=== PATIENT | female | born 1945 | race Caucasian/White ===

== ENCOUNTER → 2020-10-27 10:43 | Outpatient (BNV) | payer MEDICARE, SELFPAY, MEDICAID | PROVIDERS: PCP Internal Medicine; Visit Provider Internal Medicine Medical Oncology | DX: C90.00 Multiple myeloma not having achieved remission (principal) | CPT/HCPCS: 99213; 99214 ==

== ENCOUNTER 2020-11-02 10:02 | Day surgery (SDC) | payer MEDICARE, SELFPAY ==
[2020-10-28 10:02] VITALS: BMI 23.3
--- NOTE | 2020-11-01 09:30 | HO.ANESPROP2 ---
Documented by User: Violeta Xiong 11/01/20 09:31 HPI - Anesthesia Eval Consult details Narrative: 74yo F for Upper Endoscopy and Colonoscopy [facility] Past Medical History Medical History (Updated 11/02/20 @ 11:03 by Lyssa Adam) H/O gastroesophageal reflux (GERD) Hx of multiple myeloma Hypothyroidism Family History Family History Daughter Diabetes Thyroid cancer Surgical History Surgical History History of bone marrow biopsy History of cholecystectomy Social History Social History Alcohol intake: former Smoking Status: Current every day smoker Cigarettes Per Day: 5 Years Smoked: 35 Smoked in Last 30 Days: Yes Patient Given Instructions on How to Stop Smoking: Yes Date Education Initiated: 10/28/20 Advance Directives Information Provided: No Recently lost weight without trying: No Meds Allergies Allergy/AdvReac Type Severity Reaction Status Date / Time No Known Allergies Allergy Unverified 08/11/20 16:27 [No Known Allergies*] Home Medications Medication Instructions Recorded Confirmed Type calcium carbonate [Calcium Antacid] 1 tab PO QAM 10/27/20 10/28/20 History docusate sodium [DOK] 1 cap PO BID PRN 10/27/20 10/28/20 History lenalidomide [Revlimid] 10 mg PO DAILY 10/27/20 10/28/20 History levothyroxine 1 tab PO DAILY 10/27/20 11/02/20 History mirtazapine 1 tab PO BEDTIME 10/27/20 10/28/20 History oxycodone 1 tab PO Q12H 10/27/20 10/28/20 History acetaminophen 1,300 mg PO Q8H PRN 10/28/20 10/28/20 History aspirin [Aspirin Low-Strength] 81 mg PO DAILY 10/28/20 11/02/20 History prochlorperazine maleate 10 mg PO Q6H PRN 10/28/20 10/28/20 History [Compazine] Exam Exam Date and Time: November 01, 2020 0930 Height,Weight and Vital Signs: Height 5 ft 5 in Weight 63.503 kg Pertinent Lab Results Pertinent Lab Results: Laboratory Tests 10/27/20 10/27/20 10:50 10:50 WBC 9.6 Hgb 12.3 Hct 37.5 Plt Count 193 Sodium 141 Potassium 4.0 Chloride 108 Carbon Dioxide 26 BUN 19 H Creatinine 1.15 Assessment and Plan Assessment Anesthesia Assessment: Chart Reviewed Documented by User: Lyssa Adam 11/02/20 11:07 [facility] Past Medical History Medical History (Updated 11/02/20 @ 11:03 by Lyssa Adam) H/O gastroesophageal reflux (GERD) Hx of multiple myeloma Hypothyroidism Family History Family History Daughter Diabetes Thyroid cancer Family history of problems with anesthesia: No Surgical History Surgical History History of bone marrow biopsy History of cholecystectomy History of Problems with Anesthesia: No Social History Social History Alcohol intake: former Smoking Status: Current every day smoker Cigarettes Per Day: 5 Years Smoked: 35 Smoked in Last 30 Days: Yes Patient Given Instructions on How to Stop Smoking: Yes Date Education Initiated: 10/28/20 Advance Directives Information Provided: No Recently lost weight without trying: No Meds Allergies Allergy/AdvReac Type Severity Reaction Status Date / Time No Known Allergies Allergy Unverified 08/11/20 16:27 [No Known Allergies*] Home Medications Medication Instructions Recorded Confirmed Type calcium carbonate [Calcium Antacid] 1 tab PO QAM 10/27/20 10/28/20 History docusate sodium [DOK] 1 cap PO BID PRN 10/27/20 10/28/20 History lenalidomide [Revlimid] 10 mg PO DAILY 10/27/20 10/28/20 History levothyroxine 1 tab PO DAILY 10/27/20 11/02/20 History mirtazapine 1 tab PO BEDTIME 10/27/20 10/28/20 History oxycodone 1 tab PO Q12H 10/27/20 10/28/20 History acetaminophen 1,300 mg PO Q8H PRN 10/28/20 10/28/20 History aspirin [Aspirin Low-Strength] 81 mg PO DAILY 10/28/20 11/02/20 History prochlorperazine maleate 10 mg PO Q6H PRN 10/28/20 10/28/20 History [Compazine] Exam Height,Weight and Vital Signs: Vital Signs Temp Pulse Resp BP Pulse Ox 11/02/20 10:58 97.2 F 58 16 124/60 100 Airway Mallampati Class: I TM Dist: >3cm Neck ROM: Full Denture: Upper Loose/Missing/Broken Teeth: Yes (Broken tooth bottom right) Heart: RRR Lungs: CTAB Assessment and Plan Assessment Anesthesia Assessment: Anesthesia Plan Discussed and Chart Reviewed Final Anesthetic Review NPO: Yes ASA Class: II Final Preanesthetic Review: No Changes in Pt Med Stat, Meds/Allgs Chart Reviewed, Consent Obtained/Reviewed and Anes Risks/Benef Reviewed Patient Risk: Low Procedure Risk: Low Anesthetic Plan Anesthetic Plan: MAC: Disposition: Standard PACU
--- NOTE | 2020-11-02 10:57 | MHC.SHP ---
Pre-Procedural Eval Section B Chief Complaint: Chronic Diarrhea Relevant Social History: Tobacco Use Present Medications: see Short Stay Collaborative assessment (Hx of multiple myeloma, Hypothyroidism) Medical History: Significant History (Hx of multiple myeloma Hypothyroidism) History of Previous Operations: Relevant previous surgery/procedure and date(s) (cholecystectomy, myeloma) Allergies: Allergies Allergy/AdvReac Type Severity Reaction Status Date / Time No Known Allergies Allergy Unverified 08/11/20 16:27 [No Known Allergies*] Review of Systems Sugical H&P ROS: Negative: Constitution, Cardiovascular, Respiratory, Neurological, Psychiatric, Hem-Onc, Allergic/Immunologic, Gastrointestinal, Genitourinary, Musculoskeletal, Integumentary, Endocrine and Eyes/Ears/Nose/Throat Exam Surgical H&P Exam: Normal: HEENT, Normal: Heart, Normal: Lungs, Normal: Extremities, Normal: Abdomen, Normal: Skin and Normal: Neurological Plan Diagnosis/Plan: Unchanged Patient has been examined and remains a candidate for the planned procedure
[2020-11-02 10:58] VITALS: BP 124/60; PULSE 58; RESP 16; TEMP 36.2; O2SAT 100
[2020-11-02] MEDS: Lactated Ringers 1,000 ML 100 ML IVCONT (11:04)
--- NOTE | 2020-11-02 11:47 | PM.OP ---
Brief Operative Note Date of Service: 11/02/20 Post-op diagnosis: same Procedure: see op note Surgeon: Jose F Mai MD Anesthesia: MAC Estimated blood loss (mL): 0 Condition: stable Disposition: PACU
--- NOTE | 2020-11-02 11:47 | W.PM.OPN ---
Operative Note Operative Note Date of Service: 11/02/20 Narrative: Operative Information Procedure Description: EGD, Colonoscopy FLEXIBLE TRANSORAL UPPER GASTROINTESTINAL ENDOSCOPY AND COLONOSCOPY PROCEDURE NOTE UPPER ENDOSCOPY Consent: Indications for the procedure and potential complications of bleeding, perforation, reaction to medications and missed diagnosis were discussed with the patient and informed consent was obtained. Instrument: Olympus GIF H 190 J mid size upper endoscope Monitoring: Vital signs and clinical assessment, continuous EKG monitoring, Pulse oximetry, Carbon Dioxide monitoring and blood pressure monitoring were done throughout the procedure. Procedure: The patient was placed in the left lateral decubitis position and pre-procedure medications were administered and a bite block was placed. The endoscope was inserted into the mouth and advanced under direct vision to the third part of duodenum. A careful inspection was made as the upper endoscope was withdrawn including a retroflexed examination of the proximal stomach; Findings and interventions are described below. Findings: Larynx:normal Esophagus: GE junction at 40 cm, diaphragm hiatus at 40 cm, normal mucosa Stomach: PAtchy erosive gastritis, mostly at antrum. Biopsies were obtained. Grade 2 flap valve on retroflexed examination of the cardia. Duodenum: bulbar duodenitis, bx taken Intervention: Biopsies as noted above COLONOSCOPY Instrument: Olympus variable stiffness pediatric scope 190L Colonoscopy Monitoring: Vital signs and clinical assessment, continuous EKG monitoring, Pulse oximetry, Carbon Dioxide monitoring and blood pressure monitoring were done throughout the procedure. Colon withdrawal time was 11 minutes. Procedure: The patient was placed in the left lateral decubitis position and pre-procedure medications were administered. After a digital rectal examination of the ano-rectum, the video colonoscope was inserted into the rectum and advanced through the colon to the cecum/TI. The colonoscope was slowly withdrawn in a retrograde panoramic fashion and the colon mucosa was carefully examined including a retroflexed view of the rectum. Findings and interventions are described below. Procedure Difficulty:easy Findings: random colon bx taken Terminal Ileum-normal, bx taken Cecum:normal Ascending Colon: 12 mm sessile polyp removed with cold snare, x 2 clips applied due to oozing which was persistent, this ceased. Transverse Colon -normal Descending Colon:normal Sigmoid Colon: normal Rectum: Retroflexion with small internal hemorrhoids, grade I Anorectum - normal Colon preparation: [place] Bowel Preparation Scale Right colon; 1 Transverse colon: 2 Left colon; 1 (0 = Unprepared colon segment with mucosa not seen due to solid stool that cannot be cleared. 1 = Portion of mucosa of the colon segment seen, but other areas of the colon segment not well seen due to staining, residual stool and/or opaque liquid. 2 = Minor amount of residual staining, small fragments of stool and/or opaque liquid, but mucosa of colon segment seen well. 3 = Entire mucosa of colon segment seen well with no residual staining, small fragments of stool or opaque liquid) Impression and Post Procedure Diagnosis: Endoscopy Findings: erosive gastritis, duodenitis Colonoscopy Findings: internal hemorrhoids polyp Plan: Await Pathology results if h pylori pos then treat Repeat Colonoscopy in 6-12 months due to prep or earlier if clinically indicated High fiber diet leaflet Above findings were reviewed with the patient and relevant handouts were provided if indicated.
[2020-11-02 11:55] VITALS: BP 91/45; PULSE 70; RESP 14; TEMP 36.3; O2SAT 100
[2020-11-02 12:10] VITALS: BP 86/59; PULSE 63; RESP 16; O2SAT 100
[2020-11-02 12:15] VITALS: BP 139/71; RESP 18; O2SAT 100
[2020-11-02 12:22] VITALS: BP 135/74; PULSE 61; RESP 18; O2SAT 100
--- NOTE | 2020-11-02 12:59 | HO.POSTANES ---
Documented by User: Violeta Xiong 11/02/20 12:59 Post Anesthesia Evaluation Post Anesthesia Evaluation Vital Signs: Vital Signs Temp Pulse Resp BP Pulse Ox 11/02/20 12:22 97.4 F 61 18 135/74 100 11/02/20 12:15 18 139/71 100 11/02/20 12:10 63 16 86/59 L 100 11/02/20 11:55 97.4 F 70 14 91/45 L 100 11/02/20 10:58 97.2 F 58 16 124/60 100 Anesthesia: Monitored Mental Status: Awake Pain Control: Satisfactory Nausea/Vomiting: None Hydration: Adequate Anesthesia-Related Issues: No Anes. Related Issues
== END 2020-11-02 13:11 | disposition home or self-care (01) ==
PROVIDERS: PCP Internal Medicine; Visit Provider Internal Medicine Gastroenterology
PROC: (CPT 45385; principal; 2020-11-02 11:30)
DX: K29.60 Other gastritis without bleeding (principal); B96.81 Helicobacter pylori [H. pylori] as the cause of diseases classified elsewhere; K29.80 Duodenitis without bleeding; D12.2 Benign neoplasm of ascending colon; K64.0 First degree hemorrhoids
CPT/HCPCS: 45385; 45380; 43239; 88305; 88342

== ENCOUNTER → 2020-11-15 10:51 | Outpatient (BNVA) | payer OTHER, SELFPAY | PROVIDERS: PCP Internal Medicine; Visit Provider Physician Assistant | DX: Z76.89 Persons encountering health services in other specified circumstances (principal) ==

== ENCOUNTER → 2020-12-13 10:15 | Outpatient (BNVA) | payer MEDICARE, SELFPAY | PROVIDERS: PCP Internal Medicine; Visit Provider Physician Assistant | DX: K27.9 Peptic ulcer, site unspecified, unspecified as acute or chronic, without hemorrhage or perforation (principal); B96.81 Helicobacter pylori [H. pylori] as the cause of diseases classified elsewhere; D36.9 Benign neoplasm, unspecified site | CPT/HCPCS: Q3014 ==

== ENCOUNTER 2020-12-16 09:41 | Inpatient (IN) | payer OTHER, SELFPAY ==
[2020-12-16] VITALS (7 sets, daily range): BP systolic 103–111; BP diastolic 46–72; PULSE 54–62; RESP 12–19; TEMP 36.3–37.3; O2SAT 97–100; BMI 21.6; BMI 24.2
--- NOTE | 2020-12-16 11:21 | XR_ITS ---
EXAMINATION: XR CHEST CLINICAL INFORMATION: Fever. COMPARISON: Chest 05/11/2018 TECHNIQUE: Frontal view of the chest was obtained. FINDINGS: The lungs are well-expanded with patchy opacity seen in left lower lobe retrocardiac area, new since the previous study. Rest of the lungs are clear. The heart size and pulmonary vascularity is normal. No gross bony abnormality seen. XR/XR chest 1V IMPRESSION: Patchy opacity left lower lobe retrocardiac area likely infiltrate at
[2020-12-16] MEDS: 0.9 % Sodium Chloride 1,000 ML 999 ML IVCONT (11:39)
[2020-12-16 11:52] LABS: Hematocrit 25.9 % (37-47); Hemoglobin 8.8 g/dl (12.0-16.0); Mean Corpuscular Hemoglobin 31.2 pg (27.0-33.0); Mean Corpuscular Volume 91.8 fL (80-98); Mean Platelet Volume 11.6 fL (9.4-12.3); Platelet Count 199 X10*3/uL (160-400); Red Blood Count 2.82 X10*6/uL (4.20-5.50); Red Cell Distribution Width 13.7 % (11.0-16.0)
--- NOTE | 2020-12-16 11:56 | ED_ITS ---
HPI - Weakness General Chief complaint: Weakness Stated complaint: diarrhea, not feeling well Time Seen by Provider: 12/16/20 11:08 Source: patient Mode of arrival: ambulatory Limitations: language barrier History of Present Illness HPI Narrative: 75 y/o female with history of multiple myeloma dx 2017 on maintainence Prolia therapy, hypothyroidism, recent H.pylori hx on EGD, hx colon polyps presenting with diffuse muscle aches and body pain along with generalized weakness and decreased PO intake for the last week or so. She denies fever, chills, SOB, cough. No known exposure to COVID-19. She reports constipation and recently completed triple therapy for H. pylori. She reports feeling generally unwell, I don't feel good, it hurts all over. Related Data Home Medications Medication Instructions Recorded Confirmed calcium carbonate [Calcium Antacid] 1 tab PO QAM 10/27/20 10/28/20 docusate sodium [DOK] 1 cap PO BID PRN 10/27/20 12/13/20 lenalidomide [Revlimid] 10 mg PO DAILY 10/27/20 12/13/20 levothyroxine 1 tab PO DAILY 10/27/20 11/02/20 mirtazapine 1 tab PO BEDTIME 10/27/20 10/28/20 oxycodone 1 tab PO Q12H 10/27/20 10/28/20 acetaminophen 1,300 mg PO Q8H PRN 10/28/20 12/13/20 aspirin [Aspirin Low-Strength] 81 mg PO DAILY 10/28/20 12/13/20 prochlorperazine maleate 10 mg PO Q6H PRN 10/28/20 10/28/20 [Compazine] Allergies Allergy/AdvReac Type Severity Reaction Status Date / Time No Known Allergies Allergy Verified 12/16/20 11:14 [No Known Allergies*] Review of Systems Review of Systems: Constitutional: No Fever, No Chills ENT/Mouth: No sore throat, No Rhinorrhea, No Swallowing Difficulty Eyes: No Eye Pain, No Swelling, No Redness Cardiovascular: No Chest Pain, No SOB, No Orthopnea, No Edema Respiratory: No Cough, No Sputum, No Wheezing, No dyspnea Gastrointestinal: + Nausea, No Vomiting, No Diarrhea, No abdominal Pain, No Hematochezia, No Melena, +Constipation Genitourinary: No Dysuria, No Urinary Frequency, No Hematuria Musculoskeletal: + joint pain, + Myalgias Skin: No Skin Lesions, No rash Neuro: + Weakness, No Numbness, No Dizziness, No Headache Psych: No Anxiety/Panic, No Depression Heme/Lymph: No Bruising, No Lymphadenopathy Endocrine: No Polyuria, No Polydipsia [facility] Past Medical History Attestation statement: The following information was validated with the patient. Medical History H/O gastroesophageal reflux (GERD) Hx of multiple myeloma Hypothyroidism Surgical History History of bone marrow biopsy History of cholecystectomy Family History Family History Daughter Diabetes Thyroid cancer Social History Social History (Updated 12/13/20 @ 10:27 by ANU VegaC) Household Members: Spouse Alcohol intake: former Smoking Status: Never smoker Cigarettes Per Day: 5 Years Smoked: 35 Use of substances other than those prescribed or required for medical reasons: No Advance Directives: No Advance Directives Information Provided: No Physical Exam Vital Signs: Vital Signs: Last Vital Signs Temp 99.2 F 12/16/20 11:08 Pulse 59 12/16/20 11:08 Resp 18 12/16/20 11:08 BP 111/53 L 12/16/20 11:08 Pulse Ox 100 12/16/20 11:08 Body Mass Index 21.6 Appearance: Alert. Oriented X3. No acute distress. Eyes: Pupils equal, round and reactive to light. ENT: Pharynx normal. Neck: Normal inspection. Neck supple. CVS: Normal heart rate and rhythm. Pulses normal. Respiratory: No respiratory distress. Breath sounds normal. Abdomen: Soft and nontender. decreased bowel sounds x4 REBEKAH: normal rectal tone, yellow stool, heme negative Skin: Skin warm and dry. Normal skin color. Poor skin turgor. No rashes. Extremities: No lower extremity edema. Negative Shun's sign. Neuro: Oriented X 3. No motor deficit. No sensory deficit. Course Course Course Narrative: 75 y/o female with history fo multiple myeloma dx 2017 currently on denosumab (Prolia) every 3 months, last dose in Oct 2020. She is presenting with diffuse muscle and body aches, generalized weakness. Will need to r/o COVID-19. Will check basic lab work to assess for electrolyte abnormalities. Reevaluation(s) Reevaluation #1: Critically low calcium at 5.3, magnesium 1.2. She is also more anemic than her baseline with 2 point drop in her hemoglobin in 1 month. Denies bleeding. Heme negative from below. Multiple labs added including phos, retic count, hemolytic labs. Cannot get iCal, per lab it is a sent out 5 day turnaround time. Corrected calcium is 5.88 got albumin 3.4. EKG pending. Etiology of the electrolyte abnormalities likely due to Prolia. Will contact Dr. Dukes and plan for admission to the hospital for further management and monitoring. Reevaluation #2: Spoke with Zaida Reynolds who will admit. Consultations Consultation #1: Dr. Dukes was tigertexted at 1:40pm - hypocalcemia likely due to Prolia - recommends replacements, close montoring and anemia workup. She was informed of plan for admission. MDM - Weakness Medical Records Attestation: I reviewed the patient's medical records. Lab Data Attestation: I reviewed the patient's lab results. Result diagrams: 12/16/20 11:38 12/16/20 11:38 Labs: Lab Results 12/16/20 12/16/20 12/16/20 Range/Units 11:38 11:38 11:38 WBC 7.0 (4.8-10.8) X10*3/uL RBC 2.82 L (4.20-5.50) X10*6/uL Hgb 8.8 L (12.0-16.0) g/dl Hct 25.9 L D (37-47) % MCV 91.8 (80-98) fL MCH 31.2 (27.0-33.0) pg MCHC 34.0 (31.0-35.0) g/dl RDW 13.7 (11.0-16.0) % Plt Count 199 (160-400) X10*3/uL MPV 11.6 (9.4-12.3) fL Immature Gran % (Auto) Cancelled Neut % (Auto) Cancelled Lymph % (Auto) Cancelled Caroline % (Auto) Cancelled Eos % (Auto) Cancelled Baso % (Auto) Cancelled Lymph # (Auto) Cancelled Caroline # (Auto) Cancelled Eos # (Auto) Cancelled Baso # (Auto) Cancelled Abs Immat Gran (auto) Cancelled Absolute Neuts (auto) Cancelled Absolute Nucleated RBC 0.000 (0.0-0.012) X10*3/uL Nucleated RBC % (auto) 0.0 (0.0-0.2) /100WBC Neutrophils % (Manual) 65 (45-73) % Band Neutrophils % 1 L (3-5) % Lymphocytes % (Manual) 23 (20-40) % Monocytes % (Manual) 11 (2-11) % Abs Neuts (Manual) 4.6 (2.2-7.9) X10*3/uL Lymphocytes # (Manual) 1.6 (0.6-4.8) X10*3/uL Monocytes # (Manual) 0.8 (0.0-1.2) X10*3/uL Platelet Estimate NORMAL (NORMAL) Plt Morphology Comment NORMAL RBC Morphology NOTED Macrocytosis 1+ Absolute Retic 0.030 (0.026-0.095) X10*6/uL Percent Retic 1.1 (0.5-1.8) % Immature Retic Fraction 7.2 (3.0-15.9) % Retic Hgb Equivalent 27.6 L (30.0-35.0) pg Hold Blue Top SEE NOTE Sodium 136 (135-145) mmol/L Potassium 3.5 (3.3-5.1) mmol/l Chloride 102 (96-108) mmol/L Carbon Dioxide 23 (22-29) mmol/L Anion Gap 15 (12-20) BUN 10 (9-16) mg/dL Creatinine 1.02 (0.5-1.4) mg/dL Estim Creat Clear Calc 42.2 Estimated GFR 53 Random Glucose 99 (60-115) mg/dL Calcium 5.3 L* D (8.4-10.2) mg/dL Phosphorus 2.0 L (2.7-4.5) mg/dL Magnesium 1.2 L* (1.6-2.6) mg/dL Total Bilirubin 0.6 (0.0-1.0) mg/dL Direct Bilirubin 0.3 (0.0-0.5) mg/dL AST 22 D (5-31) U/L ALT 23 (0-31) U/L Alkaline Phosphatase 128 H D (39-117) U/L Total Protein 6.5 (6.5-8.0) g/dL Albumin 3.4 L (3.5-5.0) g/dL Lipase 29 (8-78) U/L Stool Occult Blood (NEG) Coronavirus (PCR) (Negative) Influenza Type A (PCR) (Negative) Influenza Type B (PCR) (Negative) RSV RNA Qual (PCR) (Negative) 12/16/20 12/16/20 Range/Units 11:38 12:57 WBC (4.8-10.8) X10*3/uL RBC (4.20-5.50) X10*6/uL Hgb (12.0-16.0) g/dl Hct (37-47) % MCV (80-98) fL MCH (27.0-33.0) pg MCHC (31.0-35.0) g/dl RDW (11.0-16.0) % Plt Count (160-400) X10*3/uL MPV (9.4-12.3) fL Immature Gran % (Auto) Neut % (Auto) Lymph % (Auto) Caroline % (Auto) Eos % (Auto) Baso % (Auto) Lymph # (Auto) Caroline # (Auto) Eos # (Auto) Baso # (Auto) Abs Immat Gran (auto) Absolute Neuts (auto) Absolute Nucleated RBC (0.0-0.012) X10*3/uL Nucleated RBC % (auto) (0.0-0.2) /100WBC Neutrophils % (Manual) (45-73) % Band Neutrophils % (3-5) % Lymphocytes % (Manual) (20-40) % Monocytes % (Manual) (2-11) % Abs Neuts (Manual) (2.2-7.9) X10*3/uL Lymphocytes # (Manual) (0.6-4.8) X10*3/uL Monocytes # (Manual) (0.0-1.2) X10*3/uL Platelet Estimate (NORMAL) Plt Morphology Comment RBC Morphology Macrocytosis Absolute Retic (0.026-0.095) X10*6/uL Percent Retic (0.5-1.8) % Immature Retic Fraction (3.0-15.9) % Retic Hgb Equivalent (30.0-35.0) pg Hold Blue Top Sodium (135-145) mmol/L Potassium (3.3-5.1) mmol/l Chloride (96-108) mmol/L Carbon Dioxide (22-29) mmol/L Anion Gap (12-20) BUN (9-16) mg/dL Creatinine (0.5-1.4) mg/dL Estim Creat Clear Calc Estimated GFR Random Glucose (60-115) mg/dL Calcium (8.4-10.2) mg/dL Phosphorus (2.7-4.5) mg/dL Magnesium (1.6-2.6) mg/dL Total Bilirubin (0.0-1.0) mg/dL Direct Bilirubin (0.0-0.5) mg/dL AST (5-31) U/L ALT (0-31) U/L Alkaline Phosphatase (39-117) U/L Total Protein (6.5-8.0) g/dL Albumin (3.5-5.0) g/dL Lipase (8-78) U/L Stool Occult Blood NEG (NEG) Coronavirus (PCR) NEGATIVE (Negative) Influenza Type A (PCR) NEGATIVE (Negative) Influenza Type B (PCR) NEGATIVE (Negative) RSV RNA Qual (PCR) NEGATIVE (Negative) ECG Data Attestation: I personally reviewed and interpreted this ECG as follows: ECG interpretation date: 12/16/20 ECG interpretation time: 13:53 Interpretation: sinus bradycardia, HR 58, prolonged QT 540 ms, prolonged QTc 530 ms, normal MA interval. Critical Care Time Critical Care Time Critical Care Time: Yes Total Critical Care Time: 40 Attestation: I attest to critical care time spent caring for this patient with clinically significant electrolyte abnormalities requiring aggressive IV replacements and hemodynamic monitoring/ arrythmia monitoring. Time spent reviewing records, speaking with consultants and re-evaluating the patient. Discharge Plan Discharge Prescriptions: No Action levothyroxine 75 mcg tablet 1 tab PO DAILY RF: 0 calcium carbonate [Calcium Antacid] 200 mg calcium (500 mg) tablet,chewable 1 tab PO QAM RF: 0 docusate sodium [DOK] 100 mg capsule 1 cap PO BID PRN (Reason: Constipation) RF: 0 mirtazapine 15 mg tablet 1 tab PO BEDTIME RF: 0 Revlimid 10 mg capsule 10 mg PO DAILY RF: 0 oxycodone 10 mg tablet 1 tab PO Q12H RF: 0 prochlorperazine maleate [Compazine] 10 mg Tablet 10 mg PO Q6H PRN (Reason: Nausea) RF: 0 aspirin [Aspirin Low-Strength] 81 mg Tablet,Delayed Release (Dr/Ec) 81 mg PO DAILY RF: 0 acetaminophen 650 mg Tablet 1,300 mg PO Q8H PRN (Reason: Pain) RF: 0
--- NOTE | 2020-12-16 12:00 | PC.NURSE ---
Addendum entered by Cyndy Anguiano RN 12/16/20 12:01: CONT'D FROM PREV. NOTE. HX MULTIPLE MYELOMA. DENIES SOB, CP, DIZZINESS, N/V/D. A&OX3, SPEAKING IN CLEAR FULL SENTENCES. LABS DRAWN ORDERED, #20 IN L AC. OBSERVED AMBULATING INDEPENDENTLY AND STEADILY TO RESTROOM. Original Note: C/O GEN WEAKNESS X 1 WK WITH MYALGIAS. HX MULTIUP
[2020-12-16 12:27] LABS: Influenza A PCR NEGATIVE (Negative); Influenza B PCR NEGATIVE (Negative); Resp Syncy Virus RNA Qual PCR NEGATIVE (Negative); SARS COV2 PCR INHOUSE NEGATIVE (Negative)
[2020-12-16 12:37] LABS: Alanine Aminotransferase 23 U/L (0-31); Albumin Level 3.4 g/dL (3.5-5.0); Alkaline Phosphatase 128 U/L (39-117); Anion Gap 15 (12-20); Aspartate Amino Transferase 22 U/L (5-31); Bilirubin Direct 0.3 mg/dL (0.0-0.5); Bilirubin Total 0.6 mg/dL (0.0-1.0); Blood Urea Nitrogen 10 mg/dL (9-16); Calcium 5.3 mg/dL (8.4-10.2); Carbon Dioxide 23 mmol/L (22-29); Chloride 102 mmol/L (96-108); Creatinine Clr Calc Pharmacy 42.2; Estimated Glomerular Filt Rate 53; Glucose Random 99 mg/dL (60-115); Lipase 29 U/L (8-78); Magnesium 1.2 mg/dL (1.6-2.6); Potassium 3.5 mmol/l (3.3-5.1); Sodium 136 mmol/L (135-145); Total Protein 6.5 g/dL (6.5-8.0)
[2020-12-16 12:39] LABS: Baso%MD 0.1 %; Eos%MD 3.8 %; IG%MD 0.4 %; Immature Retic Fraction 7.2 % (3.0-15.9); Lymph%MD 19.2 %; Mono%MD 14.7 %; Neut%MD 61.8 %; Retic HGB Equivalent 27.6 pg (30.0-35.0); Reticulocyte Percent 1.1 % (0.5-1.8)
--- NOTE | 2020-12-16 12:47 | ECG_ITS ---
Test Reason : CP Blood Pressure : / mmHG Vent. Rate : 058 BPM Atrial Rate : 058 BPM P-R Int : 118 ms QRS Dur : 074 ms QT Int : 540 ms P-R-T Axes : 025 048 016 degrees QTc Int : [address] & T wave abnormality, consider anterior ischemia Prolonged QT Abnormal ECG When compared with ECG of 14-JUL-2017 12:43, QT has lengthened Referred By: Cheyenne Lyman Electronically Signed By:LORRI LUCAS
[2020-12-16] MEDS: Magnesium Sulfate/H2O 2 GM/50 ML PIGGYBACK IV (12:55)
[2020-12-16 13:06] LABS: Band Neutrophils Percent 1 % (3-5); Lymphocytes Absolute Manual 1.6 X10*3/uL (0.6-4.8); Lymphocytes Percent Manual 23 % (20-40); Monocytes Absolute Manual 0.8 X10*3/uL (0.0-1.2); Monocytes Percent Manual 11 % (2-11); Neutrophils Absolute Manual 4.6 X10*3/uL (2.2-7.9); Neutrophils Percent Manual 65 % (45-73); RBC Morphology NOTED
[2020-12-16 13:07] LABS: Macrocytosis 1+; Platelet Estimate NORMAL (NORMAL); Platelet Morphology Comment NORMAL
[2020-12-16 13:12] LABS: OBS Int Ctl Valid YES; OBS1 NEG (NEG)
[2020-12-16] MEDS: Calcium Gluconate/NaCl,Iso-Osm 2 GM/100 ML PLAST..BAG IV (13:25)
[2020-12-16] MEDS: Sodium,Potassium Phosphates POWD.PACK 2 PACKET PO (14:01)
--- NOTE | 2020-12-16 14:02 | PM.EVENT ---
Event Note Date of Service: 12/16/20 Event Note: Patient seen and examined independently and was present during burgos portion of E/M service. Agree with midlevel's history, physical, assessment, and plan. 75F presented with abdominal pain found to have hypocalcemia hypocalcemia due to denosumab and zometa and hypomagnesemia replace and monitor
--- NOTE | 2020-12-16 17:24 | P.HPHOSP_ITS ---
History of Present Illness Date of Service: 12/16/20 Chief Complaint: Weakness This is a 75-year-old history of multiple myeloma who presents to the emergency department with one-week history of weakness. She reports associated constipation but denies other symptoms. Basic labs were drawn was noted to be anemic below her baseline with an H/H of 8.8/25.9. In addition her calcium was 5.3, phosphorus 2.0 and magnesium 1.2. EKG revealed prolonged QTC at 530 milliseconds. She received replacement for her was made to admit her for further management. Review of Systems Review of Systems: Yes all other systems are reviewed and are negative Constitutional: Constitutional: Denies chills and Denies fever(s) Cardiovascular: Cardiovascular: Denies chest pain Respiratory: Respiratory: Denies cough Gastrointestinal: Gastrointestinal: Denies abdominal pain [facility] Medical History (Updated 12/16/20 @ 17:40 by SOHAN Zarco) Depression H/O gastroesophageal reflux (GERD) Hx of multiple myeloma Hypothyroidism Functional capacity: independent ambulation Family History Daughter Diabetes Thyroid cancer Surgical History History of bone marrow biopsy History of cholecystectomy Social History (Updated 12/16/20 @ 17:40 by SOHAN Zarco) Household Members: Spouse Alcohol intake: former Smoking Status: Current every day smoker Cigarettes Per Day: 5 Years Smoked: 35 Use of substances other than those prescribed or required for medical reasons: No Advance Directives: No Advance Directives Information Provided: No Meds Allergies Allergy/AdvReac Type Severity Reaction Status Date / Time No Known Allergies Allergy Verified 12/16/20 11:14 [No Known Allergies*] Home Medications Medication Instructions Recorded Confirmed Type lenalidomide [Revlimid] 10 mg PO DAILY 10/27/20 12/16/20 History levothyroxine 75 mcg PO DAILY 10/27/20 12/16/20 History oxycodone 10 mg PO Q12H 10/27/20 12/16/20 History acyclovir 400 mg PO DAILY@1200 12/16/20 12/16/20 History aspirin 81 mg PO DAILY 12/16/20 12/16/20 History fluoxetine 20 mg PO QAM 12/16/20 12/16/20 History mirtazapine 30 mg PO BEDTIME 12/16/20 12/16/20 History Physical Exam Vital Signs and Narrative: Vital Signs: Last Vital Signs Temp 99.2 F 12/16/20 11:08 Pulse 57 12/16/20 16:00 Resp 18 12/16/20 16:00 BP 104/48 L 12/16/20 16:00 Pulse Ox 98 12/16/20 16:00 Body Mass Index 21.6 Const: General: alert and awake Nutritional Appearance: well nourished HENMT: Head: Yes normocephalic and Yes atraumatic Eyes: Sclerae: sclerae normal Chest: Chest palpation & inspection: normal inspection of the chest Resp: Effort & Inspection: normal respiratory effort and no respiratory distress Cardio: Rate: regular rate Rhythm: regular rhythm GI: Palpation (GI): Soft to palpation and nontender Skin: General skin exam: no rashes or lesions noted Neuro: Cranial nerves: Yes CN's II-XII intact bilaterally and Yes Bilaterally intact EOM present Extrem: General: Yes normal to inspection Results Labs CBC and Chem 7: 12/16/20 11:38 12/16/20 11:38 Labs: Laboratory Results - last 24 hr 12/16/20 12/16/20 12/16/20 11:38 11:38 11:38 MCV 91.8 MCH 31.2 MCHC 34.0 RDW 13.7 Plt Count 199 MPV 11.6 Immature Gran % (Auto) Cancelled Neut % (Auto) Cancelled Lymph % (Auto) Cancelled Graham % (Auto) Cancelled Eos % (Auto) Cancelled Baso % (Auto) Cancelled Lymph # (Auto) Cancelled Graham # (Auto) Cancelled Eos # (Auto) Cancelled Baso # (Auto) Cancelled Abs Immat Gran (auto) Cancelled Absolute Neuts (auto) Cancelled Absolute Nucleated RBC 0.000 Nucleated RBC % (auto) 0.0 Neutrophils % (Manual) 65 Band Neutrophils % 1 L Lymphocytes % (Manual) 23 Monocytes % (Manual) 11 Abs Neuts (Manual) 4.6 Lymphocytes # (Manual) 1.6 Monocytes # (Manual) 0.8 Platelet Estimate NORMAL Plt Morphology Comment NORMAL RBC Morphology NOTED Macrocytosis 1+ Absolute Retic 0.030 Percent Retic 1.1 Immature Retic Fraction 7.2 Retic Hgb Equivalent 27.6 L Hold Blue Top SEE NOTE Anion Gap 15 Estim Creat Clear Calc 42.2 Estimated GFR 53 Random Glucose 99 Calcium 5.3 L* D Phosphorus 2.0 L Magnesium 1.2 L* Total Bilirubin 0.6 Direct Bilirubin 0.3 AST 22 D ALT 23 Alkaline Phosphatase 128 H D Total Protein 6.5 Albumin 3.4 L Lipase 29 Stool Occult Blood Coronavirus (PCR) Influenza Type A (PCR) Influenza Type B (PCR) RSV RNA Qual (PCR) 12/16/20 12/16/20 11:38 12:57 MCV MCH MCHC RDW Plt Count MPV Immature Gran % (Auto) Neut % (Auto) Lymph % (Auto) Graham % (Auto) Eos % (Auto) Baso % (Auto) Lymph # (Auto) Graham # (Auto) Eos # (Auto) Baso # (Auto) Abs Immat Gran (auto) Absolute Neuts (auto) Absolute Nucleated RBC Nucleated RBC % (auto) Neutrophils % (Manual) Band Neutrophils % Lymphocytes % (Manual) Monocytes % (Manual) Abs Neuts (Manual) Lymphocytes # (Manual) Monocytes # (Manual) Platelet Estimate Plt Morphology Comment RBC Morphology Macrocytosis Absolute Retic Percent Retic Immature Retic Fraction Retic Hgb Equivalent Hold Blue Top Anion Gap Estim Creat Clear Calc Estimated GFR Random Glucose Calcium Phosphorus Magnesium Total Bilirubin Direct Bilirubin AST ALT Alkaline Phosphatase Total Protein Albumin Lipase Stool Occult Blood NEG Coronavirus (PCR) NEGATIVE Influenza Type A (PCR) NEGATIVE Influenza Type B (PCR) NEGATIVE RSV RNA Qual (PCR) NEGATIVE Imaging Radiologist's Impressions: Impressions Chest X-Ray 12/16/20 11:21 IMPRESSION: Patchy opacity left lower lobe retrocardiac area likely infiltrate at Assessment and Plan (1) Anemia: Qualifiers: Anemia type: unspecified type Qualified Code(s): D64.9 - Anemia, unsp ecified Status: Acute (2) Hypocalcemia: Status: Acute (3) Hypomagnesemia: Status: Acute (4) Hypophosphatemia: Status: Acute This is a 75-year-old Omani-speaking female with a history of multiple myeloma on denosumab, hypothyroidism, mood disorder who presents to the emergency department with weakness found to have multiple electrolyte abnormalities Hypocalcemia Secondary to hypomagnesemia, denosumab -replace electrolytes and follow -nephrology consult Hypomagnesemia/hypophosphatemia replace and follow Prolonged qtc, 530ms r/t electrolyte abnormalities Tele monitoring Repeat EKG in am hold ssri anemia H/H somewhat below baseline Will check stool occult blood Follow CBC mood hold ssri, continue mirtazapine chronic pain Continue home dose of oxycodone Hypothyroidism Continue Synthroid DVT prophylaxis-heparin Code status-full code This case was discussed with Dr. Obrien
[2020-12-16 18:25] LABS: Appearance Urine CLEAR; Color Urine YELLOW; Glucose Urine UA NEG (NEG); Leukocyte Esterase Urine NEG (NEG); Nitrite Urine NEG (NEG); PH 5.5 (5.0-8.0); Specific Gravity - Urine 1.025 (1.005-1.025); Urine Blood TRACE (NEG); Urine Ketones NEG (NEG); Urine Protein TRACE MG/DL (NEG-TRACE)
[2020-12-16 18:31] LABS: Bacteria Urine TRACE /LPF; RBC Urine 0 /HPF (0); Squamous Epithelial Cell Urine 1+ /LPF; WBC Urine 0 /HPF (0-4)
[2020-12-16 18:47] LABS: Magnesium 1.8 mg/dL (1.6-2.6)
[2020-12-16] MEDS: Heparin Sodium,Porcine 5,000 UNIT/ML VIAL 5000 UNIT SUBCUT (19:52)
--- NOTE | 2020-12-16 19:52 | PC.NURSE ---
Patient medicated per emar as noted. Patient's pain level 8. No other issues at this time.
[2020-12-16] MEDS: oxyCODONE HCl Immed Release 5 MG TABLET 10 MG PO (19:53)
--- NOTE | 2020-12-16 21:33 | PC.NURSE ---
REPORT GIVEN TO [facility] ELIZ PETERSON, ROOM [id number].
[2020-12-17] MEDS: 0.9 % Sodium Chloride Flush 3 ML SYRINGE IVFLUSH ×3 (00:51→17:31)
[2020-12-17 03:16] VITALS: BP 113/58; PULSE 57; RESP 18; TEMP 36.4; O2SAT 100
[2020-12-17] MEDS: Acetaminophen 325 MG TABLET 650 MG PO (03:37)
--- NOTE | 2020-12-17 05:15 | PC.NURSE ---
Patient had a 7 beat of vtach. Pt slept through it, this RN at bedside, pt easily arrousable, asymptomatic. Dr. Awan notified - confirmed BMP for morning labs and added mag to blood work .
[2020-12-17 06:19] LABS: MANUAL DIFF FLAG NO
[2020-12-17 06:30] LABS: Basophils Percent Auto 0.3 % (0-2); Eosinophils Absolute Auto 0.2 X10*3/uL (0.0-0.4); Eosinophils Percent Auto 6.4 % (0-4); Hematocrit 21.8 % (37-47); Hemoglobin 7.3 g/dl (12.0-16.0); Imm Gran Abs Auto 0.01 X10*3/uL (0.00-0.03); Imm Gran Pct Auto 0.3 % (0.0-0.4); Lymphocytes Absolute Auto 1.1 X10*3/uL (1.2-4.9); Lymphocytes Percent Auto 29.6 % (20-40); Mean Corpuscular HGB Conc 33.5 g/dl (31.0-35.0); Mean Corpuscular Hemoglobin 30.5 pg (27.0-33.0); Mean Corpuscular Volume 91.2 fL (80-98); Mean Platelet Volume 11.7 fL (9.4-12.3); Monocytes Absolute Auto 0.6 X10*3/uL (0.1-1.2); Monocytes Percent Auto 15.4 % (2-11); Neutrophils Absolute Auto 1.7 X10*3/uL (2.0-8.3); Platelet Count 159 X10*3/uL (160-400); Red Blood Count 2.39 X10*6/uL (4.20-5.50); Red Cell Distribution Width 13.7 % (11.0-16.0); White Blood Count 3.6 X10*3/uL (4.8-10.8)
[2020-12-17 07:05] LABS: Magnesium 1.7 mg/dL (1.6-2.6)
[2020-12-17 07:09] LABS: Anion Gap 15 (12-20); Blood Urea Nitrogen 10 mg/dL (9-16); Carbon Dioxide 19 mmol/L (22-29); Chloride 105 mmol/L (96-108); Creatinine Clr Calc Pharmacy 54.5; Estimated Glomerular Filt Rate > 60; Glucose Random 81 mg/dL (60-115); Phosphorus 2.9 mg/dL (2.7-4.5); Potassium 3.5 mmol/l (3.3-5.1); Sodium 135 mmol/L (135-145)
[2020-12-17 07:33] LABS: Calcium 5.3 mg/dL (8.4-10.2)
[2020-12-17 08:00] VITALS: BP 124/56; PULSE 48; RESP 18; TEMP 36.1; O2SAT 100
[2020-12-17] MEDS: Aspirin 81 MG TAB.CHEW PO (08:45)
[2020-12-17] MEDS: Magnesium Oxide 400 MG TABLET 800 MG PO (08:45)
[2020-12-17] MEDS: Levothyroxine Sodium 75 MCG TABLET PO (08:45)
[2020-12-17] MEDS: oxyCODONE HCl Immed Release 5 MG TABLET 10 MG PO ×2 (08:45→22:49)
[2020-12-17] MEDS: Heparin Sodium,Porcine 5,000 UNIT/ML VIAL 5000 UNIT SUBCUT ×2 (08:46→22:50)
[2020-12-17] MEDS: Calcium Gluconate/NaCl,Iso-Osm 1 GM/50 ML PLAST..BAG IV ×2 (09:49→17:54)
--- NOTE | 2020-12-17 10:23 | HO.PM.IMPN ---
Subjective Subjective Date of Service: 12/17/20 Interval History: tired Cardiovascular Cardiovascular: Reports no additional cardiovascular complaints Respiratory Respiratory: Reports no additional respiratory complaints Physical Exam Vital Signs: Vital Signs: Last Vital Signs Temp 97.0 F 12/17/20 08:00 Pulse 48 L 12/17/20 08:00 Resp 18 12/17/20 08:00 BP 124/56 L 12/17/20 08:00 Pulse Ox 100 12/17/20 08:00 Body Mass Index 24.2 General: AO X 3, no acute distress Resp: CTA bilateral CVS: S1,S2,RRR GI: soft, non tender, non distended Neuro: motor grossly intact Psych: appropriate affect Objective Data Current Medications Generic Name Dose Route Start Last Admin Trade Name Freq PRN Reason Stop Dose Admin Acetaminophen 650 mg 12/16/20 17:57 12/17/20 03:37 Acetaminophen 325 Mg Tablet PO 650 mg Q6H PRN Administration Pain, Mild (Pain Scale 1-3) Acyclovir 400 mg 12/17/20 12:00 Acyclovir 200 Mg Capsule PO DAILY@1200 KULDEEP Aspirin 81 mg 12/17/20 09:00 12/17/20 08:45 Aspirin 81 Mg Tab.Chew PO 81 mg DAILY KULDEEP Administration Docusate Sodium 100 mg 12/16/20 17:57 Docusate Sodium 100 Mg Capsule PO DAILY PRN Constipation Heparin Sodium (Porcine) 5,000 unit 12/16/20 20:00 12/17/20 08:46 Heparin Sodium,Porcine 5,000 Unit/Ml Vial SUBCUT 5,000 unit Q12H KULDEEP Administration Levothyroxine Sodium 75 mcg 12/17/20 09:00 12/17/20 08:45 Levothyroxine Sodium 75 Mcg Tablet PO 75 mcg DAILY KULDEEP Administration Non-Formulary Medication 10 mg 12/17/20 09:00 Lenalidomide [Revlimid] PO DAILY KULDEEP Ondansetron HCl 4 mg 12/16/20 17:57 Ondansetron Hcl 4 Mg/2 Ml Vial IVPUSH Q8H PRN Nausea and Vomiting Oxycodone HCl 10 mg 12/16/20 20:00 12/17/20 08:45 Oxycodone Hcl Immed Release 5 Mg Tablet PO 10 mg Q12H KULDEEP Administration Pharmacy Consult 1 each 12/16/20 13:23 Consult Rx Perform Med Rec MISCELLANE ONCE PRN Consult order Sodium Chloride 3 ml 12/17/20 00:00 12/17/20 09:49 0.9 % Sodium Chloride Flush 3 Ml Syringe IVFLUSH 3 ml QSHIFT [facility] Administration Labs CBC & Chem 7: 12/17/20 05:46 12/17/20 05:46 Assessment and Plan (1) Anemia: Status: Acute (2) Hypocalcemia: Status: Acute (3) Hypomagnesemia: Status: Acute (4) Hypophosphatemia: Status: Acute Assessment and Plan: This is a 75-year-old Kittitian-speaking female with a history of multiple myeloma on denosumab, hypothyroidism, mood disorder who presentsedto the emergency department with weakness found to have multiple electrolyte abnormalities Hypocalcemia Secondary to hypomagnesemia, denosumab, zometa -replace and monitor -nephrology eval MM outpaitient follow up mood hold ssri, continue mirtazapine chronic pain Continue home dose of oxycodone Hypothyroidism Continue Synthroid DVT prophylaxis-heparin Code status-full code
--- NOTE | 2020-12-17 10:29 | PM.CNNEP ---
History of Present Illness Reason for Consult Consult date: 12/17/20 Chief Complaint Chief complaint: Hypoglycemia History of Present Illness Narrative: Full dictated consult to follow Severe HypoCa in setting of Myeloma and recent denusamab treatemt in Dec Will ocnt to give IV/PO Ca and start calcitriol Unfortunately the hypoCa can at times be diffuclt to treat as the densumab effects can have a prolonged effect Will follow clsoley with team Review of Systems Review of Systems Constitutional: No Fever, No Chills ENT/Mouth: No sore throat, No Rhinorrhea, No Swallowing Difficulty Eyes: No Eye Pain, No Swelling, No Redness Cardiovascular: No Chest Pain, No SOB, No Orthopnea, No Edema Respiratory: No Cough, No Sputum, No Wheezing, No dyspnea Gastrointestinal: + Nausea, No Vomiting, No Diarrhea, No abdominal Pain, No Hematochezia, No Melena, +Constipation Genitourinary: No Dysuria, No Urinary Frequency, No Hematuria Musculoskeletal: + joint pain, + Myalgias Skin: No Skin Lesions, No rash Neuro: + Weakness, No Numbness, No Dizziness, No Headache Psych: No Anxiety/Panic, No Depression Heme/Lymph: No Bruising, No Lymphadenopathy Endocrine: No Polyuria, No Polydipsia Yes all other systems are reviewed and are negative Constitutional: Denies chills and Denies fever(s) Cardiovascular: Reports no additional cardiovascular complaints and Denies chest pain Respiratory: Reports no additional respiratory complaints and Denies cough Gastrointestinal: Denies abdominal pain PMFSH Past Medical History Medical History (Updated 12/16/20 @ 17:40 by SOHAN Zarco) Depression H/O gastroesophageal reflux (GERD) Hx of multiple myeloma Hypothyroidism Functional capacity: independent ambulation Family History Family History Daughter Diabetes Thyroid cancer Surgical History Surgical History History of bone marrow biopsy History of cholecystectomy Social History Social History (Updated 12/16/20 @ 17:40 by SOHAN Zarco) Household Members: Spouse Housing: Apartment Do you presently have visiting nurse or other home services: No Alcohol intake: former Smoking Status: Current some day smoker Tobacco Type: Cigarette Cigarettes Per Day: 0.1 Years Smoked: 20 Smoked in Last 30 Days: Yes Patient Interested in Nicotine Replacement: No Patient Given Instructions on How to Stop Smoking: Yes Date Education Initiated: 12/16/20 Second Hand Smoke Exposure: No Use of substances other than those prescribed or required for medical reasons: No Currently Displaying Signs/Symptoms of Drug Intoxication Withdrawal: No Have you been hit, kicked, punched, or otherwise hurt by someone within the past year? If so, by whom?: No Do you feel safe in your current relationship?: No Is there a partner from a previous relationship who is making you feel unsafe now?: No Are you made to feel afraid or neglected: No Advance Directives: No Advance Directives Information Provided: No Advance Directives on File: No Do you have thoughts of harming others: None Do you have a plan to hurt others: No Plan Recently lost weight without trying: No Meds Allergies Allergy/AdvReac Type Severity Reaction Status Date / Time No Known Allergies Allergy Verified 12/16/20 11:14 [No Known Allergies*] Home Medications Medication Instructions Recorded Confirmed Type lenalidomide [Revlimid] 10 mg PO DAILY 10/27/20 12/16/20 History levothyroxine 75 mcg PO DAILY 10/27/20 12/16/20 History oxycodone 10 mg PO Q12H 10/27/20 12/16/20 History acyclovir 400 mg PO DAILY@1200 12/16/20 12/16/20 History aspirin 81 mg PO DAILY 12/16/20 12/16/20 History fluoxetine 20 mg PO QAM 12/16/20 12/16/20 History mirtazapine 30 mg PO BEDTIME 12/16/20 12/16/20 History Physical Exam Vital Signs: Last Vital Signs Temp 97.0 F 12/17/20 08:00 Pulse 48 L 12/17/20 08:00 Resp 18 12/17/20 08:00 BP 124/56 L 12/17/20 08:00 Pulse Ox 100 12/17/20 08:00 Body Mass Index 24.2 Const General: alert and awake Nutritional Appearance: well nourished HENMT Head: Yes normocephalic and Yes atraumatic Eyes Sclerae: sclerae normal Chest Chest palpation & inspection: normal inspection of the chest Resp Effort & Inspection: normal respiratory effort and no respiratory distress Cardio Rate: regular rate Rhythm: regular rhythm GI Palpation (GI): Soft to palpation and nontender Skin General skin exam: no rashes or lesions noted Neuro Cranial nerves: Yes CN's II-XII intact bilaterally and Yes Bilaterally intact EOM present Extrem General: Yes normal to inspection Results Lab Results Result Diagrams: 12/17/20 05:46 12/17/20 05:46 Lab results: Chemistry 12/16/20 12/17/20 11:38 05:46 Sodium 136 135 Potassium 3.5 3.5 Carbon Dioxide 23 19 L BUN 10 10 Creatinine 1.02 0.79 Calcium 5.3 L* D 5.3 L* Phosphorus 2.0 L 2.9 Hematology 12/16/20 12/17/20 11:38 05:46 WBC 7.0 3.6 L Hgb 8.8 L 7.3 L Plt Count 199 159 L Urinalysis 12/16/20 18:17 Urine Color YELLOW Urine Appearance CLEAR Urine pH 5.5 Ur Specific [place] 1.025 Urine Protein TRACE Urine Glucose (UA) NEG Urine Ketones NEG Urine Blood TRACE Urine Nitrite NEG Ur Leukocyte Esterase NEG Urine RBC 0 Urine WBC 0 Ur Squamous Epith Cells 1+ Assessment and Plan (1) Anemia: Qualifiers: Anemia type: unspecified type Qualified Code(s): D64.9 - Anemia, unspecified Status: Acute (2) Hypocalcemia: Status: Acute (3) Hypomagnesemia: Status: Acute (4) Hypophosphatemia: Status: Acute This is a 75-year-old [place]ibian-speaking female with a history of multiple myeloma on denosumab, hypothyroidism, mood disorder who presentsedto the emergency department with weakness found to have multiple electrolyte abnormalities Hypocalcemia Secondary to hypomagnesemia, denosumab, zometa -replace and monitor -nephrology eval MM outpaitient follow up mood hold ssri, continue mirtazapine chronic pain Continue home dose of oxycodone Hypothyroidism Continue Synthroid DVT prophylaxis-heparin Code status-full code
[2020-12-17] MEDS: calcitrioL 0.25 MCG CAPSULE 0.5 MCG PO (11:18)
[2020-12-17] MEDS: Acyclovir 200 MG CAPSULE 400 MG PO (11:18)
[2020-12-17] MEDS: Calcium Gluconate/NaCl,Iso-Osm 2 GM/100 ML PLAST..BAG IV (11:18)
[2020-12-17 12:00] VITALS: BP 110/53; PULSE 51; RESP 18; TEMP 36.2; O2SAT 99
--- NOTE | 2020-12-17 12:38 | PM.CNNEP ---
History of Present Illness Reason for Consult Consult date: 12/17/20 Reason for consult: hypoCa Chief Complaint Chief complaint: Hypoglycemia History of Present Illness Narrative: Asked to see PT to assit in eval and management of severe hypoCa of 5.3 in settin o f underlyig Myeloma and Osteoperosis and recently started on denusamab ( 10/2020). She was adm to hosp with fen weakness...denies numbing/tingling; incr QTC on EKG noted. Rec indictae Myeloma dx'd 2017 with multiple lytic bone lesons and an IgA K and BM with abnl plasma cells ( 50-70&) in past. Closely followed by Heme/Onc ( Dr Dukes) and getting RVD Tx and last SIfixation was good. Still feels weak. No CP/SOb. Has recieved 2 gm IV CA yesterday and now gettin another 1 gm this am. Mg replaced as well. PKH signif for Depression H/O gastroesophageal reflux (GERD) Hx of multiple myeloma Hypothyroidism Review of Systems Review of Systems Constitutional: No Fever, No Chills ENT/Mouth: No sore throat, No Rhinorrhea, No Swallowing Difficulty Eyes: No Eye Pain, No Swelling, No Redness Cardiovascular: No Chest Pain, No SOB, No Orthopnea, No Edema Respiratory: No Cough, No Sputum, No Wheezing, No dyspnea Gastrointestinal: + Nausea, No Vomiting, No Diarrhea, No abdominal Pain, No Hematochezia, No Melena, +Constipation Genitourinary: No Dysuria, No Urinary Frequency, No Hematuria Musculoskeletal: + joint pain, + Myalgias Skin: No Skin Lesions, No rash Neuro: + Weakness, No Numbness, No Dizziness, No Headache Psych: No Anxiety/Panic, No Depression Heme/Lymph: No Bruising, No Lymphadenopathy Endocrine: No Polyuria, No Polydipsia Yes all other systems are reviewed and are negative Constitutional: Denies chills and Denies fever(s) Cardiovascular: Reports no additional cardiovascular complaints and Denies chest pain Respiratory: Reports no additional respiratory complaints and Denies cough Gastrointestinal: Denies abdominal pain [facility] Past Medical History Medical History (Updated 12/16/20 @ 17:40 by SOHAN Zarco) Depression H/O gastroesophageal reflux (GERD) Hx of multiple myeloma Hypothyroidism Functional capacity: independent ambulation Family History Family History Daughter Diabetes Thyroid cancer Surgical History Surgical History History of bone marrow biopsy History of cholecystectomy Social History Social History (Updated 12/16/20 @ 17:40 by SOHAN Zarco) Household Members: Spouse Housing: Apartment Do you presently have visiting nurse or other home services: No Alcohol intake: former Smoking Status: Current some day smoker Tobacco Type: Cigarette Cigarettes Per Day: 0.1 Years Smoked: 20 Smoked in Last 30 Days: Yes Patient Interested in Nicotine Replacement: No Patient Given Instructions on How to Stop Smoking: Yes Date Education Initiated: 12/16/20 Second Hand Smoke Exposure: No Use of substances other than those prescribed or required for medical reasons: No Currently Displaying Signs/Symptoms of Drug Intoxication Withdrawal: No Have you been hit, kicked, punched, or otherwise hurt by someone within the past year? If so, by whom?: No Do you feel safe in your current relationship?: No Is there a partner from a previous relationship who is making you feel unsafe now?: No Are you made to feel afraid or neglected: No Advance Directives: No Advance Directives Information Provided: No Advance Directives on File: No Do you have thoughts of harming others: None Do you have a plan to hurt others: No Plan Recently lost weight without trying: No Meds Allergies Allergy/AdvReac Type Severity Reaction Status Date / Time No Known Allergies Allergy Verified 12/16/20 11:14 [No Known Allergies*] Home Medications Medication Instructions Recorded Confirmed Type lenalidomide [Revlimid] 10 mg PO DAILY 10/27/20 12/16/20 History levothyroxine 75 mcg PO DAILY 10/27/20 12/16/20 History oxycodone 10 mg PO Q12H 10/27/20 12/16/20 History acyclovir 400 mg PO DAILY@1200 12/16/20 12/16/20 History aspirin 81 mg PO DAILY 12/16/20 12/16/20 History fluoxetine 20 mg PO QAM 12/16/20 12/16/20 History mirtazapine 30 mg PO BEDTIME 12/16/20 12/16/20 History Physical Exam Vital Signs: Last Vital Signs Temp 97.2 F 12/17/20 12:00 Pulse 51 12/17/20 12:00 Resp 18 12/17/20 12:00 BP 110/53 L 12/17/20 12:00 Pulse Ox 99 12/17/20 12:00 Body Mass Index 24.2 Const General: alert and awake Nutritional Appearance: well nourished [facility] Head: Yes normocephalic and Yes atraumatic Eyes Sclerae: sclerae normal Chest Chest palpation & inspection: normal inspection of the chest Resp Effort & Inspection: normal respiratory effort and no respiratory distress Cardio Rate: regular rate Rhythm: regular rhythm GI Palpation (GI): Soft to palpation and nontender Skin General skin exam: no rashes or lesions noted Neuro Cranial nerves: Yes CN's II-XII intact bilaterally and Yes Bilaterally intact EOM present Extrem General: Yes normal to inspection Results Lab Results Result Diagrams: 12/17/20 05:46 12/17/20 05:46 Lab results: Chemistry 12/16/20 12/17/20 11:38 05:46 Sodium 136 135 Potassium 3.5 3.5 Carbon Dioxide 23 19 L BUN 10 10 Creatinine 1.02 0.79 Calcium 5.3 L* D 5.3 L* Phosphorus 2.0 L 2.9 Hematology 12/16/20 12/17/20 11:38 05:46 WBC 7.0 3.6 L Hgb 8.8 L 7.3 L Plt Count 199 159 L Urinalysis 12/16/20 18:17 Urine Color YELLOW Urine Appearance CLEAR Urine pH 5.5 Ur Specific [place] 1.025 Urine Protein TRACE Urine Glucose (UA) NEG Urine Ketones NEG Urine Blood TRACE Urine Nitrite NEG Ur Leukocyte Esterase NEG Urine RBC 0 Urine WBC 0 Ur Squamous Epith Cells 1+ Assessment and Plan (1) Anemia: Qualifiers: Anemia type: unspecified type Qualified Code(s): D64.9 - Anemia, unspecified Status: Acute (2) Hypocalcemia: Status: Acute (3) Hypomagnesemia: Status: Acute (4) Hypophosphatemia: Status: Acute This is a 75-year-old French-speaking female with a history of multiple myeloma on denosumab, hypothyroidism, mood disorder who presentsedto the emergency department with weakness found to have multiple electrolyte abnormalities 1. Hypocalcemia: d/t combiation of factors including hypomagnesemia, denosumab, zometa but i suspect the recent Densunmab playing a signif role 2. HypoMg: d/t PPI 3. Anemai: d/t MM REC: cont IV Ca and will give 1 dose of PO calcitriol and track Ca, check vit D levels and PTH; avid use of futher zometa or Denusmab for now and reassess once the Ca is corrected
--- NOTE | 2020-12-17 13:56 | PM.HEMONCCN ---
Subjective - Subjective Chief complaint: Follow-up for multiple myeloma. Patient: known to practice within the last 3 years Consult date: 12/17/20 Requesting Physician: pro Primary Care Provider: Erika Morris MD HPI - Consult Narrative Narrative: Altagracia Moe is a pleasant 75 year old lady, with a history of multiple myeloma. She presented to the emergency department with one-week history of weakness. She reported associated constipation but denied other symptoms. Basic labs were drawn: She was noted to be Anemic below her baseline with an H/H of 8.8/25.9. In addition her calcium was 5.3, phosphorus 2.0 and magnesium 1.2. EKG revealed prolonged QTC at 530 milliseconds. She received IV calcium replacement for it. Review of Systems - Constitutional Reports system reviewed and no additional complaints, except as documented, Reports lack of energy, Reports malaise - Eyes Reports system reviewed and no additional complaints, except as documented, Denies blurry vision - ENT Reports system reviewed and no additional complaints, except as documented - Cardiovascular Reports system reviewed and no additional complaints, except as documented, Denies chest pain at rest - Respiratory Reports no additional respiratory complaints, Denies chest congestion - Gastrointestinal Reports system reviewed and no additional complaints, except as documented, Reports change in bowel habits, Reports constipation, Denies abdominal pain - Genitourinary Reports no additional female genitourinary complaints, Denies abnormal vaginal bleeding - Musculoskeletal Reports system reviewed and no additional complaints, except as documented, Reports back pain - Integumentary/Breasts Skin/Breast: Reports no additional skin complaints, Denies bleeding lesions - Neurologic Reports system reviewed and no additional complaints, except as documented - Psychiatric Reports system reviewed and no additional complaints, except as documented, Reports anxiety - Endocrine Reports no additional endocrine complaints, Denies excessive sweating - Hematologic/Lymphatic Reports system reviewed and no additional complaints, except as documented, Denies easy bruising - Allergic/Immunologic Reports system reviewed and no additional complaints, except as documented, Denies GI upset with certain foods PMFSH Medical History: Medical History (Last Updated 12/16/20 @ 17:40 by SOHAN Zarco) Depression H/O gastroesophageal reflux (GERD) Hx of multiple myeloma Hypothyroidism Functional capacity: independent ambulation Patient : No Family History: Family History (Last Reviewed 12/16/20 @ 17:40 by SOHAN Zarco) Daughter Diabetes Thyroid cancer Surgical History: Surgical History (Last Reviewed 12/16/20 @ 17:40 by SOHAN Zarco) History of bone marrow biopsy History of cholecystectomy Social History: Social History (Last Updated 12/16/20 @ 17:40 by SOHAN Zarco) Living Situation History: Household Members: Spouse Housing: Apartment Do you presently have visiting nurse or other home services: No Alcohol History: Alcohol intake: former Alcohol History Details: Alcohol intake frequency: does not drink Tobacco History: Smoking Status: Current some day smoker Tobacco Type: Cigarette Years Smoked: 20 Smoked in Last 30 Days: Yes Patient Interested in Nicotine Replacement: No Patient Given Instructions on How to Stop Smoking: Yes Date Education Initiated: 12/16/20 Second Hand Smoke Exposure: No Substance Use History: Use of substances other than those prescribed or required for medical reasons: No Currently Displaying Signs/Symptoms of Drug Intoxication Withdrawal: No Domestic Abuse History: Have you been hit, kicked, punched, or otherwise hurt by someone within the past year? If so, by whom?: No Do you feel safe in your current relationship?: No Is there a partner from a previous relationship who is making you feel unsafe now?: No Are you made to feel afraid or neglected: No Advance Directives: Advance Directives: No Advance Directives Information Provided: No Advance Directives on File: No Homicidal Assessment: Do you have thoughts of harming others: None Do you have a plan to hurt others: No Plan Nutrition Assessment: Recently lost weight without trying: No Eating poorly because of decreased appetite: No Nutrition Risks: No Nutritional Risk Patient : No : No Poor oral hygiene: No Occupation Assessmet: service: No Current occupational status: employed Smoking status: Current some day smoker Home Medications and Allergies Current Medications: Current Medications Generic Name Dose Route Start Last Admin Trade Name Freq PRN Reason Stop Dose Admin Acetaminophen 650 mg 12/16/20 17:57 12/17/20 03:37 Acetaminophen 325 Mg Tablet PO 650 mg Q6H PRN Administration Pain, Mild (Pain Scale 1-3) Acyclovir 400 mg 12/17/20 12:00 12/17/20 11:18 Acyclovir 200 Mg Capsule PO 400 mg DAILY@1200 KULDEEP Administration Aspirin 81 mg 12/17/20 09:00 12/17/20 08:45 Aspirin 81 Mg Tab.Chew PO 81 mg DAILY [facility] Administration Calcium Carbonate 1,000 mg 12/17/20 15:00 Calcium Carbonate 500 Mg Tablet PO TID [facility] Docusate Sodium 100 mg 12/16/20 17:57 Docusate Sodium 100 Mg Capsule PO DAILY PRN Constipation Heparin Sodium (Porcine) 5,000 unit 12/16/20 20:00 12/17/20 08:46 Heparin Sodium,Porcine 5,000 Unit/Ml Vial SUBCUT 5,000 unit Q12H [facility] Administration Levothyroxine Sodium 75 mcg 12/17/20 09:00 12/17/20 08:45 Levothyroxine Sodium 75 Mcg Tablet PO 75 mcg DAILY [facility] Administration Non-Formulary Medication 10 mg 12/17/20 09:00 Lenalidomide [Revlimid] PO DAILY [facility] Ondansetron HCl 4 mg 12/16/20 17:57 Ondansetron Hcl 4 Mg/2 Ml Vial IVPUSH Q8H PRN Nausea and Vomiting Oxycodone HCl 10 mg 12/16/20 20:00 12/17/20 08:45 Oxycodone Hcl Immed Release 5 Mg Tablet PO 10 mg Q12H [facility] Administration Pharmacy Consult 1 each 12/16/20 13:23 Consult Rx Perform Med Rec MISCELLANE ONCE PRN Consult order Sodium Chloride 3 ml 12/17/20 00:00 12/17/20 09:49 0.9 % Sodium Chloride Flush 3 Ml Syringe IVFLUSH 3 ml QSHIFT [facility] Administration Home Medications Medication Instructions Recorded Confirmed Type Revlimid 10 mg PO DAILY 10/27/20 12/16/20 History levothyroxine 75 mcg PO DAILY 10/27/20 12/16/20 History oxycodone 10 mg PO Q12H 10/27/20 12/16/20 History acyclovir 400 mg PO DAILY@1200 12/16/20 12/16/20 History aspirin 81 mg PO DAILY 12/16/20 12/16/20 History fluoxetine 20 mg PO QAM 12/16/20 12/16/20 History mirtazapine 30 mg PO BEDTIME 12/16/20 12/16/20 History Allergies Allergy/AdvReac Type Severity Reaction Status Date / Time No Known Allergies Allergy Verified 12/16/20 11:14 [No Known Allergies*] Physical Exam Vital signs: Vital Signs Temp 97.2 F 12/17/20 12:00 Pulse 51 12/17/20 12:00 Resp 18 12/17/20 12:00 BP 110/53 L 12/17/20 12:00 Pulse Ox 99 12/17/20 12:00 Intake & Output 12/16/20 12/17/20 12/17/20 18:59 06:59 18:59 Intake Total 1150 / 1150 0 / 1150 50 / 50 Balance 1150 / 1150 0 / 1150 50 / 50 Intake: Intake, Oral Amount 0 / 0 Intake, IV Amount 1150 / 1150 50 / 50 Calcium Gluconate/NaCl,Iso-Osm 50 / 50 1 gm In 50 ml @ 50 mls/hr IV ONCE ONE Rx#:[id number] Calcium Gluconate/NaCl,Iso-Osm 100 / 100 2 gm In 100 ml @ 50 mls/hr IV ONCE ONE Rx#:[id number] Magnesium Sulfate/H2O 2 gm In 50 / 50 50 ml @ 25 mls/hr IV ONCE ONE Rx#:[id number] 0.9 % Sodium Chloride 1,000 ml 1000 / 1000 @ 999 mls/hr IVCONT .Q1H1M KULDEEP Rx#:[id number] Other: Number of Unmeasured Voids 1 Weight 58.967 kg 66 kg Weight 66 kg - Constitutional Present: no acute distress - Routine HEENT Exam Head: Present: normal inspection ENT: Present: mucous membranes moist - Routine Neck Exam Present: supple - Routine Cardiovascular Exam Cardiovascular: Present: RRR, S1, S2 - Routine Rectal Exam Patient deferred: digital exam - Routine Extremities Exam Present: nontender Hem/Onc Consult Result - Labs CBC & Chem 7: 12/19/20 05:30 12/19/20 05:30 Labs: Short CBC 12/17/20 Range/Units 05:46 WBC 3.6 L (4.8-10.8) X10*3/uL Hgb 7.3 L (12.0-16.0) g/dl Hct 21.8 L (37-47) % Plt Count 159 L (160-400) X10*3/uL BMP 12/17/20 05:46 Sodium 135 Potassium 3.5 Chloride 105 Carbon Dioxide 19 L BUN 10 Creatinine 0.79 Calcium 5.3 L* Urine 12/16/20 Range/Units 18:17 Urine Color YELLOW Urine Appearance CLEAR Urine pH 5.5 (5.0-8.0) Ur Specific [place] 1.025 (1.005-1.025) Urine Protein TRACE (NEG-TRACE) MG/DL Urine Glucose (UA) NEG (NEG) MG/DL Assessment and Plan (1) Multiple myeloma Status: Acute This is a pleasant 75-year-old lady with a known history of multiple myeloma. She has completed a year worth of VRD treatment. She responded well to it with normalization of her immunofixation. Most recent at [facility] from 08/12 was normal. From April it, revealed: IgG 2012 [id number] mg/d IgA 412 H 70-320 mg/dL IgM 28 L 50-300 mg/dL IMFIXS INTERP No abnormal bands are present on immunofixation. The FREE K/L RATIO 1.35, from July. She is currently on maintenance Revlimid. She gets bisphosphonate every 3 months. Was recently switched from Zometa to denosumab. She presented with hypocalcemia: Potassium 5.3. Mag 1.2. MULTIFACTORIAL: including: Related to Denosumab, that she received recently. She was switched from Zometa. In combination with hypomagnesemia.(likely related to the PPI.) She received IV calcium replacement. Magnesium is up at 1.7. Calcium still 5.3. PLAN: The plan is to check vit D levels and PTH. To continue IV Calcium, till calcium level is normal. She will receive a dose of PO calcitriol. Continue to monitor Calcium levels. Will hold off on using Denusmab at this point. Thank you, CC: Shania Mederos.
--- NOTE | 2020-12-17 14:44 | PC.NURSE ---
pt has been sitting at bed edge in no distress. She ate her meal, also had a snack. She denies pain, did report her IV was hurting, IV removed and dressing applied. Pt converses appropriately in Malay and Georgian. Will continue to monitor
[2020-12-17 15:43] VITALS: BP 115/53; PULSE 48; RESP 16; TEMP 36.7; O2SAT 100
[2020-12-17 16:09] LABS: Calcium 6.3 mg/dL (8.4-10.2)
[2020-12-17 16:14] LABS: Iron 26 mcg/dL (30-160); Percent Iron Saturation 13 % (15-50); Total Iron Binding Capacity 204 mcg/dL (228-428); Unsaturated Iron Binding 178 ug/dL
[2020-12-17 16:35] LABS: Vitamin D 25-OH Total 9.3 ng/mL (>30)
[2020-12-17 19:57] VITALS: BP 140/71; PULSE 53; RESP 18; TEMP 36.2; O2SAT 100
[2020-12-18] VITALS (7 sets, daily range): BP systolic 106–151; BP diastolic 49–114; PULSE 46–52; RESP 18–19; TEMP 35.8–36.5; O2SAT 97–99
[2020-12-18] MEDS: 0.9 % Sodium Chloride Flush 3 ML SYRINGE IVFLUSH ×4 (00:28→20:21)
[2020-12-18 07:13] LABS: Basophils Percent Auto 0.5 % (0-2); Eosinophils Absolute Auto 0.2 X10*3/uL (0.0-0.4); Eosinophils Percent Auto 5.2 % (0-4); Hematocrit 22.6 % (37-47); Hemoglobin 7.4 g/dl (12.0-16.0); Imm Gran Abs Auto 0.01 X10*3/uL (0.00-0.03); Imm Gran Pct Auto 0.3 % (0.0-0.4); Lymphocytes Absolute Auto 1.6 X10*3/uL (1.2-4.9); Lymphocytes Percent Auto 41.3 % (20-40); MANUAL DIFF FLAG SCAN; Mean Corpuscular HGB Conc 32.7 g/dl (31.0-35.0); Mean Corpuscular Hemoglobin 30.8 pg (27.0-33.0); Mean Corpuscular Volume 94.2 fL (80-98); Mean Platelet Volume 12.3 fL (9.4-12.3); Monocytes Absolute Auto 0.6 X10*3/uL (0.1-1.2); Monocytes Percent Auto 14.2 % (2-11); Neutrophils Absolute Auto 1.5 X10*3/uL (2.0-8.3); Neutrophils Percent Auto 38.5 % (45-73); Platelet Count 194 X10*3/uL (160-400); Red Cell Distribution Width 13.9 % (11.0-16.0); SCAN SMEAR FLAG 1; White Blood Count 3.9 X10*3/uL (4.8-10.8)
[2020-12-18 07:39] LABS: Alanine Aminotransferase 24 U/L (0-31); Alkaline Phosphatase 138 U/L (39-117); Anion Gap 11 (12-20); Aspartate Amino Transferase 19 U/L (5-31); Bilirubin Direct 0.2 mg/dL (0.0-0.5); Bilirubin Total 0.5 mg/dL (0.0-1.0); Blood Urea Nitrogen 11 mg/dL (9-16); Carbon Dioxide 25 mmol/L (22-29); Chloride 107 mmol/L (96-108); Creatinine Clr Calc Pharmacy 53.1; Estimated Glomerular Filt Rate > 60; Glucose Fasting 77 mg/dL (60-99); Magnesium 1.8 mg/dL (1.6-2.6); Potassium 3.9 mmol/l (3.3-5.1); Sodium 139 mmol/L (135-145)
[2020-12-18] MEDS: Levothyroxine Sodium 75 MCG TABLET PO (07:52)
[2020-12-18] MEDS: oxyCODONE HCl Immed Release 5 MG TABLET 10 MG PO ×2 (07:52→20:14)
[2020-12-18] MEDS: Aspirin 81 MG TAB.CHEW PO (07:52)
[2020-12-18] MEDS: Heparin Sodium,Porcine 5,000 UNIT/ML VIAL 5000 UNIT SUBCUT ×2 (07:52→20:21)
[2020-12-18 07:54] LABS: Albumin Level 2.7 g/dL (3.5-5.0); Calcium 7.3 mg/dL (8.4-10.2); Total Protein 5.4 g/dL (6.5-8.0)
[2020-12-18 08:08] LABS: SLIDE REVIEW VERIFIED
[2020-12-18] MEDS: Magnesium Oxide 400 MG TABLET 800 MG PO (08:48)
--- NOTE | 2020-12-18 10:54 | HO.PM.IMPN ---
Subjective Subjective Date of Service: 12/18/20 Interval History: feeling better Cardiovascular Cardiovascular: Reports no additional cardiovascular complaints Genitourinary Genitourinary: Reports no additional female genitourinary complaints Physical Exam Vital Signs: Vital Signs: Last Vital Signs Temp 97.4 F 12/18/20 07:13 Pulse 50 12/18/20 07:13 Resp 18 12/18/20 07:13 BP 124/63 12/18/20 07:13 Pulse Ox 98 12/18/20 07:13 Body Mass Index 24.2 General: AO X 3, no acute distress Resp: CTA bilateral CVS: S1,S2,RRR GI: soft, non tender, non distended Neuro: motor grossly intact Psych: appropriate affect Objective Data Current Medications Generic Name Dose Route Start Last Admin Trade Name Freq PRN Reason Stop Dose Admin Acetaminophen 650 mg 12/16/20 17:57 12/17/20 03:37 Acetaminophen 325 Mg Tablet PO 650 mg Q6H PRN Administration Pain, Mild (Pain Scale 1-3) Acyclovir 400 mg 12/17/20 12:00 12/17/20 11:18 Acyclovir 200 Mg Capsule PO 400 mg DAILY@1200 KULDEEP Administration Aspirin 81 mg 12/17/20 09:00 12/18/20 07:52 Aspirin 81 Mg Tab.Chew PO 81 mg DAILY [facility] Administration Calcium Carbonate 1,000 mg 12/17/20 15:00 12/18/20 07:51 Calcium Carbonate 500 Mg Tablet PO 1,000 mg TID KULDEEP Administration Docusate Sodium 100 mg 12/16/20 17:57 Docusate Sodium 100 Mg Capsule PO DAILY PRN Constipation Heparin Sodium (Porcine) 5,000 unit 12/16/20 20:00 12/18/20 07:52 Heparin Sodium,Porcine 5,000 Unit/Ml Vial SUBCUT 5,000 unit Q12H [facility] Administration Levothyroxine Sodium 75 mcg 12/17/20 09:00 12/18/20 07:52 Levothyroxine Sodium 75 Mcg Tablet PO 75 mcg DAILY [facility] Administration Non-Formulary Medication 10 mg 12/17/20 09:00 Lenalidomide [Revlimid] PO DAILY [facility] Ondansetron HCl 4 mg 12/16/20 17:57 Ondansetron Hcl 4 Mg/2 Ml Vial IVPUSH Q8H PRN Nausea and Vomiting Oxycodone HCl 10 mg 12/16/20 20:00 12/18/20 07:52 Oxycodone Hcl Immed Release 5 Mg Tablet PO 10 mg Q12H [facility] Administration Pharmacy Consult 1 each 12/16/20 13:23 Consult Rx Perform Med Rec MISCELLANE ONCE PRN Consult order Sodium Chloride 3 ml 12/17/20 00:00 12/18/20 07:52 0.9 % Sodium Chloride Flush 3 Ml Syringe IVFLUSH 3 ml QSHIFT [facility] Administration Labs CBC & Chem 7: 12/18/20 05:47 12/18/20 05:47 Assessment and Plan (1) Anemia: Status: Acute (2) Hypocalcemia: Status: Acute (3) Hypomagnesemia: Status: Acute (4) Hypophosphatemia: Status: Acute Assessment and Plan: This is a 75-year-old Croatian-speaking female with a history of multiple myeloma on denosumab, hypothyroidism, mood disorder who presentsedto the emergency department with weakness found to have multiple electrolyte abnormalities Hypocalcemia Secondary to denosumab, (and hypomagnesemia, zometa) -replace and monitor -nephrology following anemia inflammatory, MM, irondefeciency will give iv iron MM outpaitient follow up mood hold ssri, continue mirtazapine chronic pain Continue home dose of oxycodone Hypothyroidism Continue Synthroid DVT prophylaxis-heparin Code status-full code
[2020-12-18] MEDS: Sodium Ferric Gluconat/Sucrose 125 MG in 0.9 % Sodium Chloride 100 ML 100 MG IV (11:39)
[2020-12-18] MEDS: Acyclovir 200 MG CAPSULE 400 MG PO (11:42)
--- NOTE | 2020-12-18 11:57 | MHC.CM.PN ---
CM MET WITH PT WITH THE [facility] [employer]. PT REPORTS SHE LIVES AT HOME WITH HER S/O AND HER SON. SHE REPORTS SHE HAS A PSYCHIATRIC SECRETARY THAT COMES 3X/WEEK FOR 2 HOURS AT A TIME TO ASSIST WITH CLEANING BUT REPORTS SHE ALSO DOES MANY THINGS HERSELF WELL. PT REPORTS SHE HAS A CANE THAT SHE OFTEN USES AND A COMMODE NEXT TO HER BED AT HOME FOR EMERGENCIES PT DOES NOT HAVE A HCP BUT IS INTERESTED IN RECEIVING MORE INFORMATION ABOUT COMPLETING ONE AND WHEN THEY ARE USEFUL. INFORMATION AND DOCUMENT PROVIDED IN ROMANIAN. PTS PCP IS KATIE SHUKLA. IMM DELIVERED CURRENT DC PLAN IS HOME WITH [employer]UMPT[employer] OF PSYCHIATRIC SECRETARY SERVICES FAMILY WILL TRANSPORT
[2020-12-18 15:47] LABS: OBS Int Ctl Valid YES; OBS1 NEG (NEG)
--- NOTE | 2020-12-18 16:39 | P.PNNP_ITS ---
Subjective Subjective Date of Service: 12/18/20 Interval history: seen and examined. events noted Physical Exam Vital Signs: Vital Signs: Last Vital Signs Temp 97.6 F 12/18/20 15:46 Pulse 48 L 12/18/20 15:46 Resp 19 12/18/20 15:46 BP 145/64 H 12/18/20 15:46 Pulse Ox 99 12/18/20 15:46 Body Mass Index 24.2 Const: General: alert and awake Nutritional Appearance: well nourished HENMT: Head: Yes normocephalic and Yes atraumatic Eyes: Sclerae: sclerae normal Chest: Chest palpation & inspection: normal inspection of the chest Resp: Effort & Inspection: normal respiratory effort and no respiratory distress Cardio: Rate: regular rate Rhythm: regular rhythm GI: Palpation (GI): Soft to palpation and nontender Skin: General skin exam: no rashes or lesions noted Neuro: Cranial nerves: Yes CN's II-XII intact bilaterally and Yes Bilaterally intact EOM present Extrem: General: Yes normal to inspection Objective Data Labs CBC & Chem 7: 12/18/20 05:47 12/18/20 05:47 Labs: Laboratory Results - last 24 hr 12/18/20 12/18/20 12/18/20 05:47 05:47 14:30 WBC 3.9 L RBC 2.40 L Hgb 7.4 L Hct 22.6 L MCV 94.2 MCH 30.8 MCHC 32.7 RDW 13.9 Plt Count 194 MPV 12.3 Immature Gran % (Auto) 0.3 Neut % (Auto) 38.5 L Lymph % (Auto) 41.3 H Calloway % (Auto) 14.2 H Eos % (Auto) 5.2 H Baso % (Auto) 0.5 Lymph # (Auto) 1.6 Calloway # (Auto) 0.6 Eos # (Auto) 0.2 Baso # (Auto) 0.0 Abs Immat Gran (auto) 0.01 Absolute Neuts (auto) 1.5 L Absolute Nucleated RBC 0.000 Nucleated RBC % (auto) 0.0 Smear Tech's Comments VERIFIED Sodium 139 Potassium 3.9 Chloride 107 Carbon Dioxide 25 Anion Gap 11 L BUN 11 Creatinine 0.81 Estim Creat Clear Calc 53.1 Estimated GFR > 60 Fasting Glucose 77 Calcium 7.3 L D Magnesium 1.8 Total Bilirubin 0.5 Direct Bilirubin 0.2 AST 19 ALT 24 Alkaline Phosphatase 138 H Total Protein 5.4 L Albumin 2.7 L D Stool Occult Blood NEG Assessment & Plan Assessment and plan (1) Anemia: Status: Acute (2) Hypocalcemia: Status: Acute (3) Hypomagnesemia: Status: Acute (4) Hypophosphatemia: Status: Acute Assessment and Plan: This is a 75-year-old Paraguayan-speaking female with a history of multiple myeloma on denosumab, hypothyroidism, mood disorder who presentsedto the emergency department with weakness found to have multiple electrolyte abnormalities 1. Hypocalcemia: improved with caand vit d suppl; d/t combiation of factors including hypomagnesemia, denosumab, zometa but i suspect the recent Densunmab playing a signif role 2. HypoMg: d/t PPI 3. Anemai: d/t MM 4. Bradycardia REC: cont po ca and track ca level, may need additional po calcitriol if Ca decr again, may need xfusion; avoid use of futher zometa or Denusmab for now and reassess once the Ca is corrected Time Spent With Patient Time: Total time spent is greater than 50% in coordination of care (as documented) at patient's floor/unit and/or counseling patient:
[2020-12-18 17:27] LABS: Albumin Level 3.2 g/dL (3.5-5.0); Calcium 7.8 mg/dL (8.4-10.2)
[2020-12-19] VITALS: BP 133/82; PULSE 76; RESP 18; TEMP 36.4; O2SAT 94
[2020-12-19 04:00] VITALS: BP 124/54; PULSE 46; RESP 20; TEMP 36.9; O2SAT 98
[2020-12-19 06:21] LABS: Basophils Percent Auto 0.5 % (0-2); Eosinophils Absolute Auto 0.1 X10*3/uL (0.0-0.4); Eosinophils Percent Auto 3.8 % (0-4); Hematocrit 23.4 % (37-47); Hemoglobin 7.6 g/dl (12.0-16.0); Imm Gran Abs Auto 0.01 X10*3/uL (0.00-0.03); Imm Gran Pct Auto 0.3 % (0.0-0.4); Lymphocytes Absolute Auto 1.6 X10*3/uL (1.2-4.9); Lymphocytes Percent Auto 44.5 % (20-40); MANUAL DIFF FLAG SCAN; Mean Corpuscular HGB Conc 32.5 g/dl (31.0-35.0); Mean Corpuscular Hemoglobin 30.4 pg (27.0-33.0); Mean Corpuscular Volume 93.6 fL (80-98); Monocytes Absolute Auto 0.5 X10*3/uL (0.1-1.2); Monocytes Percent Auto 13.1 % (2-11); Neutrophils Absolute Auto 1.4 X10*3/uL (2.0-8.3); Neutrophils Percent Auto 37.8 % (45-73); Platelet Count 228 X10*3/uL (160-400); Red Cell Distribution Width 13.4 % (11.0-16.0); SCAN SMEAR FLAG 1; White Blood Count 3.7 X10*3/uL (4.8-10.8)
[2020-12-19 06:51] LABS: Alanine Aminotransferase 23 U/L (0-31); Albumin Level 2.8 g/dL (3.5-5.0); Alkaline Phosphatase 137 U/L (39-117); Anion Gap 13 (12-20); Aspartate Amino Transferase 17 U/L (5-31); Bilirubin Direct 0.2 mg/dL (0.0-0.5); Bilirubin Total 0.3 mg/dL (0.0-1.0); Blood Urea Nitrogen 10 mg/dL (9-16); Calcium 8.4 mg/dL (8.4-10.2); Carbon Dioxide 26 mmol/L (22-29); Chloride 106 mmol/L (96-108); Creatinine Clr Calc Pharmacy 51.9; Estimated Glomerular Filt Rate > 60; Glucose Fasting 84 mg/dL (60-99); Potassium 4.6 mmol/l (3.3-5.1); Sodium 140 mmol/L (135-145); Total Protein 5.5 g/dL (6.5-8.0)
[2020-12-19 06:54] LABS: SLIDE REVIEW VERIFIED
[2020-12-19 07:17] VITALS: BP 131/59; PULSE 45; RESP 19; TEMP 37.1; O2SAT 100
[2020-12-19] MEDS: 0.9 % Sodium Chloride Flush 3 ML SYRINGE IVFLUSH (07:28)
[2020-12-19] MEDS: oxyCODONE HCl Immed Release 5 MG TABLET 10 MG PO (07:31)
[2020-12-19] MEDS: Aspirin 81 MG TAB.CHEW PO (07:31)
[2020-12-19] MEDS: Heparin Sodium,Porcine 5,000 UNIT/ML VIAL 5000 UNIT SUBCUT (07:32)
[2020-12-19] MEDS: Levothyroxine Sodium 75 MCG TABLET PO (07:32)
--- NOTE | 2020-12-19 10:24 | P.DS_ITS ---
DS: Providers Provider Date of Service: 12/19/20 Date of admission: 12/16/20 17:00 Primary care physician: Erika Morris MD Consults: 12/16/20 13:49 Consult to Hematology / Oncology Stat Consulting Provider: Fadumo Dukes Reason for consultation: multiple myloma with hypocalcemia Has provider been notified: Yes 12/16/20 17:00 Consult to Nephrology Routine Consulting Provider: Thong Cisneros Reason for consultation: hypocalcemia Has provider been notified: No DS: Diagnosis Discharge Diagnosis (1) Anemia: Status: Acute (2) Hypocalcemia: Status: Acute (3) Hypomagnesemia: Status: Acute (4) Hypophosphatemia: Status: Acute DS: Medications Discharge Medications Home Medications: Home Medications Medication Instructions Recorded Confirmed Revlimid 10 mg PO DAILY 10/27/20 12/16/20 levothyroxine 75 mcg PO DAILY 10/27/20 12/16/20 oxycodone 10 mg PO Q12H 10/27/20 12/16/20 acyclovir 400 mg PO DAILY@1200 12/16/20 12/16/20 aspirin 81 mg PO DAILY 12/16/20 12/16/20 fluoxetine 20 mg PO QAM 12/16/20 12/16/20 mirtazapine 30 mg PO BEDTIME 12/16/20 12/16/20 Previous Rx's Medication Instructions Recorded calcium carbonate 260 mg PO TID #90 tab 12/19/20 DS: Summary Hospital Course Hospital Course: Patient was admitted for hypocalcemia likely mostly due to due to denosumab whic h she is on for multiple myeloma she was given calcium and magnesium and labs returned to normal. Patient will be discharged home on oral Tums and showed follow-up with Nephrology and labs in 1 week. Patient was also noted to have anemia with a mix of inflammation and iron deficiency. She received ferric sodium gluconate. She is now feeling much better will be discharged home. Time Spent with Patient Time attestation: Total time spent providing and/or coordinating discharge services: Discharge coordination time: Greater than 30 minutes Physical Exam Vital Signs: Vital Signs: Last Vital Signs Temp 98.7 F 12/19/20 07:17 Pulse 45 L 12/19/20 07:17 Resp 19 12/19/20 07:17 BP 131/59 L 12/19/20 07:17 Pulse Ox 100 12/19/20 07:17 Body Mass Index 24.2 General: AO X 3, no acute distress Resp: CTA bilateral CVS: S1,S2,RRR GI: soft, non tender, non distended Neuro: motor grossly intact Psych: appropriate affect DS: Data Data Completed and Pending Labs on day of discharge: Laboratory Tests 12/16/20 12/16/20 12/16/20 11:38 11:38 11:38 WBC 7.0 RBC 2.82 L Hgb 8.8 L Hct 25.9 L D MCV 91.8 MCH 31.2 MCHC 34.0 RDW 13.7 Plt Count 199 MPV 11.6 Immature Gran % (Auto) Cancelled Neut % (Auto) Cancelled Lymph % (Auto) Cancelled [place] % (Auto) Cancelled Eos % (Auto) Cancelled Baso % (Auto) Cancelled Lymph # (Auto) Cancelled [place] # (Auto) Cancelled Eos # (Auto) Cancelled Baso # (Auto) Cancelled Abs Immat Gran (auto) Cancelled Absolute Neuts (auto) Cancelled Absolute Nucleated RBC 0.000 Nucleated RBC % (auto) 0.0 Neutrophils % (Manual) 65 Band Neutrophils % 1 L Lymphocytes % (Manual) 23 Monocytes % (Manual) 11 Abs Neuts (Manual) 4.6 Lymphocytes # (Manual) 1.6 Monocytes # (Manual) 0.8 Platelet Estimate NORMAL Plt Morphology Comment NORMAL RBC Morphology NOTED Macrocytosis 1+ Smear Tech's Comments Absolute Retic 0.030 Percent Retic 1.1 Immature Retic Fraction 7.2 Retic Hgb Equivalent 27.6 L Hold Blue Top SEE NOTE Sodium 136 Potassium 3.5 Chloride 102 Carbon Dioxide 23 Anion Gap 15 BUN 10 Creatinine 1.02 Estim Creat Clear Calc 42.2 Estimated GFR 53 Random Glucose 99 Fasting Glucose Calcium 5.3 L* D Phosphorus 2.0 L Magnesium 1.2 L* Iron TIBC % Saturation Unsat Iron Binding Total Bilirubin 0.6 Direct Bilirubin 0.3 AST 22 D ALT 23 Alkaline Phosphatase 128 H D Total Protein 6.5 Albumin 3.4 L Lipase 29 25-OH Vitamin D Total Urine Color Urine Appearance Urine pH Ur Specific Ponder Urine Protein Urine Glucose (UA) Urine Ketones Urine Blood Urine Nitrite Ur Leukocyte Esterase Urine RBC Urine WBC Ur Squamous Epith Cells Urine Bacteria Urine Yeast Stool Occult Blood Coronavirus (PCR) Influenza Type A (PCR) Influenza Type B (PCR) RSV RNA Qual (PCR) 12/16/20 12/16/20 12/16/20 11:38 12:57 18:15 WBC RBC Hgb Hct MCV MCH MCHC RDW Plt Count MPV Immature Gran % (Auto) Neut % (Auto) Lymph % (Auto) [place] % (Auto) Eos % (Auto) Baso % (Auto) Lymph # (Auto) [place] # (Auto) Eos # (Auto) Baso # (Auto) Abs Immat Gran (auto) Absolute Neuts (auto) Absolute Nucleated RBC Nucleated RBC % (auto) Neutrophils % (Manual) Band Neutrophils % Lymphocytes % (Manual) Monocytes % (Manual) Abs Neuts (Manual) Lymphocytes # (Manual) Monocytes # (Manual) Platelet Estimate Plt Morphology Comment RBC Morphology Macrocytosis Smear Tech's Comments Absolute Retic Percent Retic Immature Retic Fraction Retic Hgb Equivalent Hold Blue Top Sodium Potassium Chloride Carbon Dioxide Anion Gap BUN Creatinine Estim Creat Clear Calc Estimated GFR Random Glucose Fasting Glucose Calcium Phosphorus Magnesium 1.8 Iron TIBC % Saturation Unsat Iron Binding Total Bilirubin Direct Bilirubin AST ALT Alkaline Phosphatase Total Protein Albumin Lipase 25-OH Vitamin D Total Urine Color Urine Appearance Urine pH Ur Specific Ponder Urine Protein Urine Glucose (UA) Urine Ketones Urine Blood Urine Nitrite Ur Leukocyte Esterase Urine RBC Urine WBC Ur Squamous Epith Cells Urine Bacteria Urine Yeast Stool Occult Blood NEG Coronavirus (PCR) NEGATIVE Influenza Type A (PCR) NEGATIVE Influenza Type B (PCR) NEGATIVE RSV RNA Qual (PCR) NEGATIVE 12/16/20 12/17/20 12/17/20 18:17 05:46 05:46 WBC 3.6 L RBC 2.39 L Hgb 7.3 L Hct 21.8 L MCV 91.2 MCH 30.5 MCHC 33.5 RDW 13.7 Plt Count 159 L MPV 11.7 Immature Gran % (Auto) 0.3 Neut % (Auto) 48.0 Lymph % (Auto) 29.6 [place] % (Auto) 15.4 H Eos % (Auto) 6.4 H Baso % (Auto) 0.3 Lymph # (Auto) 1.1 L [place] # (Auto) 0.6 Eos # (Auto) 0.2 Baso # (Auto) 0.0 Abs Immat Gran (auto) 0.01 Absolute Neuts (auto) 1.7 L Absolute Nucleated RBC 0.000 Nucleated RBC % (auto) 0.0 Neutrophils % (Manual) Band Neutrophils % Lymphocytes % (Manual) Monocytes % (Manual) Abs Neuts (Manual) Lymphocytes # (Manual) Monocytes # (Manual) Platelet Estimate Plt Morphology Comment RBC Morphology Macrocytosis Smear Tech's Comments Absolute Retic Percent Retic Immature Retic Fraction Retic Hgb Equivalent Hold Blue Top Sodium 135 Potassium 3.5 Chloride 105 Carbon Dioxide 19 L Anion Gap 15 BUN 10 Creatinine 0.79 Estim Creat Clear Calc 54.5 Estimated GFR > 60 Random Glucose 81 Fasting Glucose Calcium 5.3 L* Phosphorus 2.9 Magnesium Iron TIBC % Saturation Unsat Iron Binding Total Bilirubin Direct Bilirubin AST ALT Alkaline Phosphatase Total Protein Albumin Lipase 25-OH Vitamin D Total Urine Color YELLOW Urine Appearance CLEAR Urine pH 5.5 Ur Specific [place]onder 1.025 Urine Protein TRACE Urine Glucose (UA) NEG Urine Ketones NEG Urine Blood TRACE Urine Nitrite NEG Ur Leukocyte Esterase NEG Urine RBC 0 Urine WBC 0 Ur Squamous Epith Cells 1+ Urine Bacteria TRACE Urine Yeast TRACE Stool Occult Blood Coronavirus (PCR) Influenza Type A (PCR) Influenza Type B (PCR) RSV RNA Qual (PCR) 12/17/20 12/17/20 12/17/20 05:46 15:04 15:04 WBC RBC Hgb Hct MCV MCH MCHC RDW Plt Count MPV Immature Gran % (Auto) Neut % (Auto) Lymph % (Auto) [place] % (Auto) Eos % (Auto) Baso % (Auto) Lymph # (Auto) [place] # (Auto) Eos # (Auto) Baso # (Auto) Abs Immat Gran (auto) Absolute Neuts (auto) Absolute Nucleated RBC Nucleated RBC % (auto) Neutrophils % (Manual) Band Neutrophils % Lymphocytes % (Manual) Monocytes % (Manual) Abs Neuts (Manual) Lymphocytes # (Manual) Monocytes # (Manual) Platelet Estimate Plt Morphology Comment RBC Morphology Macrocytosis Smear Tech's Comments Absolute Retic Percent Retic Immature Retic Fraction Retic Hgb Equivalent Hold Blue Top Sodium Potassium Chloride Carbon Dioxide Anion Gap BUN Creatinine Estim Creat Clear Calc Estimated GFR Random Glucose Fasting Glucose Calcium 6.3 L D Phosphorus Magnesium 1.7 Iron 26 L TIBC 204 L % Saturation 13 L Unsat Iron Binding 178 Total Bilirubin Direct Bilirubin AST ALT Alkaline Phosphatase Total Protein Albumin Lipase 25-OH Vitamin D Total Urine Color Urine Appearance Urine pH Ur Specific Ponder Urine Protein Urine Glucose (UA) Urine Ketones Urine Blood Urine Nitrite Ur Leukocyte Esterase Urine RBC Urine WBC Ur Squamous Epith Cells Urine Bacteria Urine Yeast Stool Occult Blood Coronavirus (PCR) Influenza Type A (PCR) Influenza Type B (PCR) RSV RNA Qual (PCR) 12/17/20 12/18/20 12/18/20 15:04 05:47 05:47 WBC 3.9 L RBC 2.40 L Hgb 7.4 L Hct 22.6 L MCV 94.2 MCH 30.8 MCHC 32.7 RDW 13.9 Plt Count 194 MPV 12.3 Immature Gran % (Auto) 0.3 Neut % (Auto) 38.5 L Lymph % (Auto) 41.3 H [place] % (Auto) 14.2 H Eos % (Auto) 5.2 H Baso % (Auto) 0.5 Lymph # (Auto) 1.6 [place] # (Auto) 0.6 Eos # (Auto) 0.2 Baso # (Auto) 0.0 Abs Immat Gran (auto) 0.01 Absolute Neuts (auto) 1.5 L Absolute Nucleated RBC 0.000 Nucleated RBC % (auto) 0.0 Neutrophils % (Manual) Band Neutrophils % Lymphocytes % (Manual) Monocytes % (Manual) Abs Neuts (Manual) Lymphocytes # (Manual) Monocytes # (Manual) Platelet Estimate Plt Morphology Comment RBC Morphology Macrocytosis Smear Tech's Comments VERIFIED Absolute Retic Percent Retic Immature Retic Fraction Retic Hgb Equivalent Hold Blue Top Sodium 139 Potassium 3.9 Chloride 107 Carbon Dioxide 25 Anion Gap 11 L BUN 11 Creatinine 0.81 Estim Creat Clear Calc 53.1 Estimated GFR > 60 Random Glucose Fasting Glucose 77 Calcium 7.3 L D Phosphorus Magnesium 1.8 Iron TIBC % Saturation Unsat Iron Binding Total Bilirubin 0.5 Direct Bilirubin 0.2 AST 19 ALT 24 Alkaline Phosphatase 138 H Total Protein 5.4 L Albumin 2.7 L D Lipase 25-OH Vitamin D Total 9.3 Urine Color Urine Appearance Urine pH Ur Specific Ponder Urine Protein Urine Glucose (UA) Urine Ketones Urine Blood Urine Nitrite Ur Leukocyte Esterase Urine RBC Urine WBC Ur Squamous Epith Cells Urine Bacteria Urine Yeast Stool Occult Blood Coronavirus (PCR) Influenza Type A (PCR) Influenza Type B (PCR) RSV RNA Qual (PCR) 12/18/20 12/18/20 12/19/20 14:30 16:59 05:30 WBC 3.7 L RBC 2.50 L Hgb 7.6 L Hct 23.4 L MCV 93.6 MCH 30.4 MCHC 32.5 RDW 13.4 Plt Count 228 MPV 12.0 Immature Gran % (Auto) 0.3 Neut % (Auto) 37.8 L Lymph % (Auto) 44.5 H [place] % (Auto) 13.1 H Eos % (Auto) 3.8 Baso % (Auto) 0.5 Lymph # (Auto) 1.6 [place] # (Auto) 0.5 Eos # (Auto) 0.1 Baso # (Auto) 0.0 Abs Immat Gran (auto) 0.01 Absolute Neuts (auto) 1.4 L Absolute Nucleated RBC 0.000 Nucleated RBC % (auto) 0.0 Neutrophils % (Manual) Band Neutrophils % Lymphocytes % (Manual) Monocytes % (Manual) Abs Neuts (Manual) Lymphocytes # (Manual) Monocytes # (Manual) Platelet Estimate Plt Morphology Comment RBC Morphology Macrocytosis Smear Tech's Comments VERIFIED Absolute Retic Percent Retic Immature Retic Fraction Retic Hgb Equivalent Hold Blue Top Sodium Potassium Chloride Carbon Dioxide Anion Gap BUN Creatinine Estim Creat Clear Calc Estimated GFR Random Glucose Fasting Glucose Calcium 7.8 L D Phosphorus Magnesium Iron TIBC % Saturation Unsat Iron Binding Total Bilirubin Direct Bilirubin AST ALT Alkaline Phosphatase Total Protein Albumin 3.2 L Lipase 25-OH Vitamin D Total Urine Color Urine Appearance Urine pH Ur Specific [place] Urine Protein Urine Glucose (UA) Urine Ketones Urine Blood Urine Nitrite Ur Leukocyte Esterase Urine RBC Urine WBC Ur Squamous Epith Cells Urine Bacteria Urine Yeast Stool Occult Blood NEG Coronavirus (PCR) Influenza Type A (PCR) Influenza Type B (PCR) RSV RNA Qual (PCR) 12/19/20 05:30 WBC RBC Hgb Hct MCV MCH MCHC RDW Plt Count MPV Immature Gran % (Auto) Neut % (Auto) Lymph % (Auto) [place] % (Auto) Eos % (Auto) Baso % (Auto) Lymph # (Auto) [place] # (Auto) Eos # (Auto) Baso # (Auto) Abs Immat Gran (auto) Absolute Neuts (auto) Absolute Nucleated RBC Nucleated RBC % (auto) Neutrophils % (Manual) Band Neutrophils % Lymphocytes % (Manual) Monocytes % (Manual) Abs Neuts (Manual) Lymphocytes # (Manual) Monocytes # (Manual) Platelet Estimate Plt Morphology Comment RBC Morphology Macrocytosis Smear Tech's Comments Absolute Retic Percent Retic Immature Retic Fraction Retic Hgb Equivalent Hold Blue Top Sodium 140 Potassium 4.6 Chloride 106 Carbon Dioxide 26 Anion Gap 13 BUN 10 Creatinine 0.83 Estim Creat Clear Calc 51.9 Estimated GFR > 60 Random Glucose Fasting Glucose 84 Calcium 8.4 D Phosphorus Magnesium Iron TIBC % Saturation Unsat Iron Binding Total Bilirubin 0.3 Direct Bilirubin 0.2 AST 17 ALT 23 Alkaline Phosphatase 137 H Total Protein 5.5 L Albumin 2.8 L Lipase 25-OH Vitamin D Total Urine Color Urine Appearance Urine pH Ur Specific [place] Urine Protein Urine Glucose (UA) Urine Ketones Urine Blood Urine Nitrite Ur Leukocyte Esterase Urine RBC Urine WBC Ur Squamous Epith Cells Urine Bacteria Urine Yeast Stool Occult Blood Coronavirus (PCR) Influenza Type A (PCR) Influenza Type B (PCR) RSV RNA Qual (PCR) Discharge Plan Discharge Patient Disposition: Home, Self-Care Referrals: Erika Morris MD [Primary Care Provider] - Thong Cisneros MD [Physician] - Discharge Medications: New calcium carbonate 260 mg calcium (648 mg) tablet 260 mg PO TID Qty: 90 RF: 0 Continued levothyroxine 75 mcg tablet 75 mcg PO DAILY RF: 0 Revlimid 10 mg capsule 10 mg PO DAILY RF: 0 oxycodone 10 mg tablet 10 mg PO Q12H RF: 0 acyclovir 400 mg tablet 400 mg PO DAILY@1200 RF: 0 mirtazapine 30 mg tablet 30 mg PO BEDTIME RF: 0 aspirin 81 mg tablet,chewable 81 mg PO DAILY RF: 0 fluoxetine 20 mg capsule 20 mg PO QAM RF: 0 Discharge Orders: Discharge Order (Routine); Ordered 12/19/20 Ordered By: Marcelo Obrien Activity on Discharge: As tolerated Stand Alone Forms: Patient Portal Discharge page Other Ambulatory Orders: Complete Blood Count no Diff (Routine) Timeframe: 1 Week Facility: [facility] - Location: Laboratory Ordered By: Marcelo Obrien Comprehensive Met. Panel (Routine) Timeframe: 1 Week Facility: [facility] - Location: Laboratory Ordered By: Marcelo Obrien Visit Report Forms: Patient Portal Discharge page Care Plan Goals: recovery Health Concerns: anemia, hypocalcemia Plan of Treatment: tums, follow up with nephrology, labs in one week
--- NOTE | 2020-12-19 10:26 | MHC.CM.PN ---
Patient has been medically cleared for dc to home today, no services. Last IMM addressed on 12/17/20.
--- NOTE | 2020-12-19 10:32 | PM.PNNEP ---
Subjective Subjective Date of Service: 12/19/20 Interval history: seen and examined. events noted Physical Exam Vital Signs: Vital Signs: Last Vital Signs Temp 98.7 F 12/19/20 07:17 Pulse 45 L 12/19/20 07:17 Resp 19 12/19/20 07:17 BP 131/59 L 12/19/20 07:17 Pulse Ox 100 12/19/20 07:17 Body Mass Index 24.2 Const: General: alert and awake Nutritional Appearance: well nourished HENMT: Head: Yes normocephalic and Yes atraumatic Eyes: Sclerae: sclerae normal Chest: Chest palpation & inspection: normal inspection of the chest Resp: Effort & Inspection: normal respiratory effort and no respiratory distress Cardio: Rate: regular rate Rhythm: regular rhythm GI: Palpation (GI): Soft to palpation and nontender Skin: General skin exam: no rashes or lesions noted Neuro: Cranial nerves: Yes CN's II-XII intact bilaterally and Yes Bilaterally intact EOM present Extrem: General: Yes normal to inspection Objective Data Labs CBC & Chem 7: 12/19/20 05:30 12/19/20 05:30 Labs: Laboratory Results - last 24 hr 12/18/20 12/18/20 12/19/20 14:30 16:59 05:30 WBC 3.7 L RBC 2.50 L Hgb 7.6 L Hct 23.4 L MCV 93.6 MCH 30.4 MCHC 32.5 RDW 13.4 Plt Count 228 MPV 12.0 Immature Gran % (Auto) 0.3 Neut % (Auto) 37.8 L Lymph % (Auto) 44.5 H [place] % (Auto) 13.1 H Eos % (Auto) 3.8 Baso % (Auto) 0.5 Lymph # (Auto) 1.6 [place] # (Auto) 0.5 Eos # (Auto) 0.1 Baso # (Auto) 0.0 Abs Immat Gran (auto) 0.01 Absolute Neuts (auto) 1.4 L Absolute Nucleated RBC 0.000 Nucleated RBC % (auto) 0.0 Smear Tech's Comments VERIFIED Sodium Potassium Chloride Carbon Dioxide Anion Gap BUN Creatinine Estim Creat Clear Calc Estimated GFR Fasting Glucose Calcium 7.8 L D Total Bilirubin Direct Bilirubin AST ALT Alkaline Phosphatase Total Protein Albumin 3.2 L Stool Occult Blood NEG 12/19/20 05:30 WBC RBC Hgb Hct MCV MCH MCHC RDW Plt Count MPV Immature Gran % (Auto) Neut % (Auto) Lymph % (Auto) [place] % (Auto) Eos % (Auto) Baso % (Auto) Lymph # (Auto) [place] # (Auto) Eos # (Auto) Baso # (Auto) Abs Immat Gran (auto) Absolute Neuts (auto) Absolute Nucleated RBC Nucleated RBC % (auto) Smear Tech's Comments Sodium 140 Potassium 4.6 Chloride 106 Carbon Dioxide 26 Anion Gap 13 BUN 10 Creatinine 0.83 Estim Creat Clear Calc 51.9 Estimated GFR > 60 Fasting Glucose 84 Calcium 8.4 D Total Bilirubin 0.3 Direct Bilirubin 0.2 AST 17 ALT 23 Alkaline Phosphatase 137 H Total Protein 5.5 L Albumin 2.8 L Stool Occult Blood Assessment & Plan Assessment and plan (1) Anemia: Status: Acute (2) Hypocalcemia: Status: Acute (3) Hypomagnesemia: Status: Acute (4) Hypophosphatemia: Status: Acute Assessment and Plan: This is a 75-year-old [place] Citizen-speaking female with a history of multiple myeloma on denosumab, hypothyroidism, mood disorder who presentsedto the emergency department with weakness found to have multiple electrolyte abnormalities 1. Hypocalcemia: improved with caa and vit d suppl; based on low albumin his Sca is now normailzed d/t combiation of factors including hypomagnesemia, denosumab, zometa but i suspect the recent Densunmab playing a signif role 2. HypoMg: d/t PPI 3. Anemai: d/t MM 4. Bradycardia REC: decr po ca 500 mg bid and track ca level, may need xfusion; avoid use of futher zometa or Denusmab for now and reassess once the Ca is corrected needs repeat Ca level in 3-4 days and then depending on rsult determine how freq it needs to be followed. Time Spent With Patient Time: Total time spent is greater than 50% in coordination of care (as documented) at patient's floor/unit and/or counseling patient:
[2020-12-19 12:08] LABS: Calcium, Ionized 3.8 mg/dL (4.8-5.6)
[2020-12-19 12:08] LABS: Calcium, Ionized 4.8 mg/dL (4.8-5.6)
[2020-12-20 22:12] LABS: PTHI 208 pg/mL (14-64)
[2020-12-21 09:07] LABS: Haptoglobin 380 mg/dL (43-212)
[2020-12-23 21:37] LABS: Calcium (PTHI) 6.3 mg/dL (8.6-10.4)
== END 2020-12-19 12:11 | disposition home or self-care (01) | DRG 641 ==
LOC: HO.ED 13:58 → HO.EDOVER 17:12 → HO.IMC 22:00
PROVIDERS: Internal Medicine; Internal Medicine Nephrology; Physician Assistant; Physician Assistant Medical; Admitting Provider Internal Medicine; Emergency Provider Internal Medicine; PCP Internal Medicine; Visit Provider Internal Medicine
DX: E83.51 Hypocalcemia (principal); C90.00 Multiple myeloma not having achieved remission; K21.9 Gastro-esophageal reflux disease without esophagitis; E83.42 Hypomagnesemia; E03.9 Hypothyroidism, unspecified; R94.31 Abnormal electrocardiogram [ECG] [EKG]; G89.29 Other chronic pain; D63.0 Anemia in neoplastic disease; T47.1X5A Adverse effect of other antacids and anti-gastric-secretion drugs, initial encounter; T38.0X5A Adverse effect of glucocorticoids and synthetic analogues, initial encounter; Y92.9 Unspecified place or not applicable; F17.210 Nicotine dependence, cigarettes, uncomplicated; Z20.822 Contact with and (suspected) exposure to COVID-19; Z71.6 Tobacco abuse counseling; Z79.82 Long term (current) use of aspirin; Z79.83 Long term (current) use of bisphosphonates; Z79.890 Hormone replacement therapy; Z79.891 Long term (current) use of opiate analgesic; Z79.899 Other long term (current) drug therapy
CPT/HCPCS: 0241U; 36415; 71045; 80048; 80076; 81001; 82040; 82272; 82306; 82310; 82330; 83010; 83540; 83690; 83735; 83970; 84100; 85007; 85025; 85027; 85045; 93005; 96361; 96365; 96366; 99285; 99291; J0610; J2916; J3475

== ENCOUNTER 2021-03-04 11:40 | Inpatient (IN) | payer OTHER, SELFPAY ==
--- NOTE | ~2021-03-04 | XR_ITS ---
EXAMINATION: XR CHEST CLINICAL INFORMATION: Increased oxygen requirement. Possible pneumonia. COMPARISON: Previous chest x-ray and chest CT 03/04/2021 TECHNIQUE: Frontal view of the chest was obtained. FINDINGS: The cardiac and mediastinal contours are normal. There is worsening diffuse mixed groundglass attenuation and denser airspace disease seen throughout the lungs suggestive of bilateral pneumonitis/pneumonia. There is no pleural effusion or pneumothorax. There are degenerative changes of the spine and shoulders. XR/XR chest 1V IMPRESSION: Increasing bilateral pneumonia/pneumonitis.
--- NOTE | ~2021-03-04 | CT_ITS ---
EXAMINATION: CT CHEST, ABDOMEN AND PELVIS WITHOUT CONTRAST CLINICAL INFORMATION: Positive COVID/abnormal chest x-ray/bone CA. Abdomen pain. Clinical information provided at the time of skeletal survey 10/29/2019 indicates multiple myeloma. Report of that study indicates right acromion, distal clavicle and scapula abnormal. Numerous lytic lesions involving skull, pelvis, spine and proximal femora. COMPARISON: Portions of a previous CT of the abdomen/pelvis 05/10/2018. TECHNIQUE: Multidetector CT of the chest, abdomen and pelvis. The patient received: Oral Contrast: No. Intravenous Contrast: None. No contrast reaction reported. Sagittal and coronal reformatted images were obtained on the technologist's workstation. This CT examination was performed using dose optimization techniques as appropriate, variously including the following: *Automated exposure control. *Adjustment of mA and/or kV according to patient size (this includes techniques or standardized protocols for targeted exams where dose is matched to indication/reason for exam; i.e. extremities or head). *Use of iterative reconstruction technique. Total exam dose-length product 277 mGy-cm, FINDINGS: Limited by nonstandard positioning. DIGITAL CONSUMER STUDIES PROFESSOR: Limited by positioning. CHEST: Lung: There is no abnormality of the trachea or mainstem bronchi. There are multifocal ground-glass opacities throughout both lungs. These involve the central and peripheral portions of each lung and involves the lower, mid and upper lung zones. The patchy distribution is nonspecific. There is no dense area of consolidation. There is no cavity or cyst formation. There is no evidence of edema in the underlying uninvolved lung. Pleura: There is no significant pleural fluid. There is no pneumothorax. Mediastinum: There are no enlarged mediastinal or hilar lymph nodes. There may be a trace sliding-type hiatal hernia. Vascular: There is no thoracic aortic aneurysm. There is atherosclerotic calcification including the coronary arteries and there is calcification of the mitral annulus. The main pulmonary artery is normal caliber. Chest Wall/Axilla: No axillary or internal mammary lymphadenopathy. ABDOMEN/PELVIS: Liver, Gallbladder, And Biliary Tree: No suspicious focal liver lesion. There are surgical clips in the expected region of the gallbladder. Pancreas: No suspicious abnormality. Spleen: The spleen is not enlarged. No focal abnormality. Adrenal Glands: Unchanged mild thickening of the adrenal glands. Kidneys And Ureters: Exophytic low attenuating lesions arising from the upper left kidney are likely unchanged and may represent cysts. No significant dilation of the urinary collecting system. There is a calcification in the mid left kidney which could be vascular. Gastrointestinal Tract: There is fluid in the rectum. There is no definite colonic wall thickening. There is fluid in the proximal colon. The appendix is normal. No significant small bowel dilation. As described, there may be a tiny sliding hiatal hernia. Abdominal Wall: No significant hernia is appreciated. Lymphovascular Structures And Fluid: An approximate 4.0 cm abdominal aortic aneurysm. No evidence of active hemorrhage. Bladder: No suspicious focal lesion. Pelvic Viscera: No suspicious abnormality. Musculoskeletal: There is partially included abnormality in the right scapula and possibly the medial right clavicle. There is possible involvement of the left acromion. Altered attenuation in the left side of the sternal manubrium. There is cortical thickening involving the lateral right 10th rib which could be callus. There may be some small lucencies in the left humeral head. There is sclerosis associated with the right 3rd costovertebral junction. There is mixed abnormality involving the lateral left 8th rib. There is a lytic lesion in the left iliac bone. There is a sclerotic area in the right femoral head which may be a bone island. There is a small lytic lesion involving the posterior aspect of the left greater trochanter. There is a lytic lesion involving the inferior aspect of L4. CT/CT chest wo con IMPRESSION: 1. There is essentially stable radiographic disease based on multiple bony abnormalities. These are difficult to directly compare and may not reflect activity of disease. 2. Extensive patchy ground-glass opacities throughout both lungs could represent viral pneumonia.
--- NOTE | ~2021-03-04 | CT_ITS ---
EXAMINATION: CT HEAD WITHOUT CONTRAST CLINICAL INFORMATION: Altered mental status COMPARISON: None TECHNIQUE: Contiguous axial imaging was performed from the skull base to vertex without intravenous administration of contrast. This CT examination was performed using dose optimization techniques as appropriate, variously including the following: *Automated exposure control *Adjustment of mA and/or kV according to patient size (this includes techniques or standardized protocols for targeted exams where dose is matched to indication/reason for exam; i.e. extremities or head) *Use of iterative reconstruction technique DLP: 1049 mGy-cm FINDINGS: Technically limited study due to patient motion. No definite intra-axial or extra-axial hemorrhage. No acute territorial infarct his evident. Ventricles and sulci appear normal. Preservation of art-white matter differentiation. No mass, mass effect, or midline shift. No fracture. The mastoid air cells and visualized paranasal sinuses are clear. CT/CT head/brain wo con IMPRESSION: Technically limited study due to patient motion artifact, with no obvious acute abnormality.
--- NOTE | ~2021-03-04 | XR_ITS ---
EXAMINATION: XR CHEST CLINICAL INFORMATION: Altered mental status. Reported history of lung cancer per the referring provider. COMPARISON: 12/16/2020. TECHNIQUE: Portable AP upright view of the chest was obtained. FINDINGS: Cardiac silhouette is at the upper limits of normal in size. Moderate peribronchial thickening is seen bilaterally with increased right perihilar markings. Patchy peripheral opacities are seen in the mid and lower lung and possibly in the mid to upper left lung, new compared to prior. No evidence of pleural effusion. No pneumothorax. Advanced degenerative changes are seen in the right shoulder. XR/XR chest 1V IMPRESSION: Patchy peripheral opacities are seen in the lungs, right greater than left. The findings could reflect an atypical viral infectious process including covid 19 pneumonia. Moderate peribronchial thickening and increased perihilar markings identified.
[2021-03-04 11:53] VITALS: BP 106/57; BP 112/51; PULSE 66; PULSE 71; RESP 20; TEMP 36.6; O2SAT 96; O2SAT 98; BMI 25.7
--- NOTE | 2021-03-04 12:10 | ED_ITS ---
HPI - General Adult General Chief complaint: General Medical Stated complaint: ABD PAIN,DIARRHEA,+ COVID Time Seen by Provider: 03/04/21 12:03 Source: EMS Mode of arrival: EMS Limitations: altered mental status History of Present Illness HPI narrative: Pleasant primarily sees Uzbek-speaking 75-year-old female with history of multiple myeloma, hypothyroidism diagnosed 3 days ago with COVID-19 an outpatient basis her is also here in the hospital with same. Per family over the past couple days has had decreased p.o. intake overall and appearing more confused. Has had several episodes of diarrhea and nonspecific diffuse abdominal pain. Onset (ago): day(s) Severity: moderate Associated symptoms: denies other symptoms Treatments prior to arrival: none Related Data Home Medications Medication Instructions Recorded Confirmed levothyroxine 75 mcg PO DAILY 10/27/20 03/04/21 oxycodone 10 mg PO Q12H 10/27/20 03/04/21 aspirin 81 mg PO DAILY 12/16/20 03/04/21 fluoxetine 20 mg PO QAM 12/16/20 03/04/21 mirtazapine 30 mg PO BEDTIME 12/16/20 03/04/21 calcium carbonate 600 mg PO TID 03/04/21 03/04/21 Previous Rx's Medication Instructions Recorded acyclovir 400 mg PO DAILY@1200 #90 tab 01/12/21 Revlimid 10 mg PO DAILY #30 cap 02/09/21 Allergies Allergy/AdvReac Type Severity Reaction Status Date / Time No Known Allergies Allergy Verified 12/16/20 11:14 [No Known Allergies*] Review of Systems Review of Systems: Yes Unobtainable due to mental condition [facility] Past Medical History Medical History (Updated 03/04/21 @ 22:06 by Carlos Emanuel NP) Depression H/O gastroesophageal reflux (GERD) Hx of multiple myeloma Hypothyroidism Surgical History History of bone marrow biopsy History of cholecystectomy Family History Family History Daughter Diabetes Thyroid cancer Social History Social History (Updated 12/16/20 @ 17:40 by SOHAN Zarco) Household Members: Spouse Housing: Apartment Alcohol intake: never Smoking Status: Never smoker Tobacco Type: Cigarette Years Smoked: 20 Second Hand Smoke Exposure: No Use of substances other than those prescribed or required for medical reasons: No Advance Directives: No Advance Directives Information Provided: Yes service: No Current occupational status: employed Physical Exam Vital Signs: Vital Signs: Last Vital Signs Temp 103.0 F H 03/04/21 20:22 Pulse 76 03/04/21 20:22 Resp 18 03/04/21 20:22 BP 105/51 L 03/04/21 20:22 Pulse Ox 95 03/04/21 20:22 Body Mass Index 25.7 Reviewed Const: General: cooperative and acute distress Nutritional Appearance: average body habitus Orientation/consciousness: oriented to person HENMT: Head: Yes normal to inspection Ears: hearing grossly normal bilat erally Eyes: General: appearance normal, both eyes and all related structures Visual Nuno: normal visual nuno by confrontation EOM: EOMs intact bilaterally Neck: Neck: Yes normal visual inspection, No positive Brudzinski's sign, No positive Kernig's sign and No tender Thyroid: Thyroid normal Chest: Chest palpation & inspection: normal inspection of the chest Resp: Effort & Inspection: normal respiratory effort Auscultation: clear to auscultation bilaterally Cardio: Jugular venous distension: no JVD Rhythm: regular rhythm Heart sounds: S1 normal heart sound present and S2 normal heart sound present GI: Inspection: Yes normal to inspection Palpation (GI): Soft to palpation Percussion: Yes normal to percussion Auscultation: normal bowel sounds : General: Yes no CVA tenderness Back/Spine/Pelvis: Back: no CVA tenderness Skin: General skin exam: no rashes or lesions noted Neuro: General: oriented to person Extrem: General: Yes normal to inspection Course Reevaluation(s) Reevaluation #1: COVID inflammatory markers elevated CT finding consistent with COVID disease Nose specific abnormalities on the abdominal CT exam. Abdominal exam benign. Labs with MARII without evidence of hypoxia, no chest pain or shortness of breath. Given 500 cc of fluid given her COVID will be somewhat frugal with this plan for admission. Consultations Consultation #1: [address] at this time called with chest x-ray read requesting more clinical information aware patient is known COVID and lung CA as radiologist saw findings consistent with COVID-19. Consultation #2: Spoke to renata Lida /son Debbie who makes the decisions he is not available [phone] Does not specifically know the code status- some ago makes mostly decisions however not available right now she will call back when she gets in contact with him The is a patient here at this hospital she is not sure why she he is admitted here ? COVID Medical Decision Making Lab Data Result diagrams: 03/04/21 12:09 03/04/21 12:09 Labs: Lab Results 03/04/21 03/04/21 03/04/21 Range/Units 12:09 12:09 12:09 WBC 4.9 (4.8-10.8) X10*3/uL RBC 3.80 L (4.20-5.50) X10*6/uL Hgb 11.3 L (12.0-16.0) g/dl Hct 33.1 L (37-47) % MCV 87.1 (80-98) fL MCH 29.7 (27.0-33.0) pg MCHC 34.1 (31.0-35.0) g/dl RDW 14.3 (11.0-16.0) % Plt Count 153 L (160-400) X10*3/uL MPV 11.3 (9.4-12.3) fL Immature Gran % (Auto) 1.4 H (0.0-0.4) % Neut % (Auto) 84.7 H (45-73) % Lymph % (Auto) 10.4 L (20-40) % Craig % (Auto) 3.3 (2-11) % Eos % (Auto) 0.0 (0-4) % Baso % (Auto) 0.2 (0-2) % Lymph # (Auto) 0.5 L (1.2-4.9) X10*3/uL Craig # (Auto) 0.2 (0.1-1.2) X10*3/uL Eos # (Auto) 0.0 (0.0-0.4) X10*3/uL Baso # (Auto) 0.0 (0.0-0.2) X10*3/uL Abs Immat Gran (auto) 0.07 H (0.00-0.03) X10*3/uL Absolute Neuts (auto) 4.1 (2.0-8.3) X10*3/uL Absolute Nucleated RBC 0.000 (0.0-0.012) X10*3/uL Nucleated RBC % (auto) 0.0 (0.0-0.2) /100WBC Smear Tech's Comments VERIFIED PT 13.4 H (10.8-13.0) SEC INR 1.1 (0.9-1.1) APTT 33.0 (24.1-38.0) SEC D-Dimer 1648 NG/ML Hold Blue Top SEE NOTE Sodium 132 L (135-145) mmol/L Potassium 3.9 (3.3-5.1) mmol/L Chloride 101 (96-108) mmol/L Carbon Dioxide 14 L (22-29) mmol/L Anion Gap 21 H (12-20) BUN 76 H D (9-16) mg/dL Creatinine 2.36 H (0.5-1.4) mg/dL Estim Creat Clear Calc 19.2 Estimated GFR 20 Random Glucose 164 H D (60-115) mg/dL Calcium 6.6 L D (8.4-10.2) mg/dL Ferritin (10-250) ng/mL Total Bilirubin 0.4 (0.0-1.0) mg/dL Direct Bilirubin 0.2 (0.0-0.5) mg/dL AST 50 H D (5-31) U/L ALT 30 (0-31) U/L Alkaline Phosphatase 107 D (39-117) U/L Lactate Dehydrogenase (122-220) U/L Troponin I High Sens (<3.5-17.0) ng/L C-Reactive Protein (< or = 0.50) mg/dL B-Natriuretic Peptide (<100) pg/mL Total Protein 8.0 D (6.5-8.0) g/dL Albumin 3.9 D (3.5-5.0) g/dL Procalcitonin ng/mL Urine Color Urine Appearance Urine pH (5.0-8.0) Ur Specific [place] (1.005-1.025) Urine Protein (NEG-TRACE) MG/DL Urine Glucose (UA) (NEG) MG/DL Urine Ketones (NEG) MG/DL Urine Blood (NEG) Urine Nitrite (NEG) Ur Leukocyte Esterase (NEG) Urine RBC (0) /HPF Urine WBC (0-4) /HPF Ur Squamous Epith Cells /LPF Amorphous Sediment /LPF Urine Bacteria /LPF Granular Casts /LPF 03/04/21 03/04/21 03/04/21 Range/Units 12:41 12:41 12:41 WBC (4.8-10.8) X10*3/uL RBC (4.20-5.50) X10*6/uL Hgb (12.0-16.0) g/dl Hct (37-47) % MCV (80-98) fL MCH (27.0-33.0) pg MCHC (31.0-35.0) g/dl RDW (11.0-16.0) % Plt Count (160-400) X10*3/uL MPV (9.4-12.3) fL Immature Gran % (Auto) (0.0-0.4) % Neut % (Auto) (45-73) % Lymph % (Auto) (20-40) % Craig % (Auto) (2-11) % Eos % (Auto) (0-4) % Baso % (Auto) (0-2) % Lymph # (Auto) (1.2-4.9) X10*3/uL Craig # (Auto) (0.1-1.2) X10*3/uL Eos # (Auto) (0.0-0.4) X10*3/uL Baso # (Auto) (0.0-0.2) X10*3/uL Abs Immat Gran (auto) (0.00-0.03) X10*3/uL Absolute Neuts (auto) (2.0-8.3) X10*3/uL Absolute Nucleated RBC (0.0-0.012) X10*3/uL Nucleated RBC % (auto) (0.0-0.2) /100WBC Smear Tech's Comments PT (10.8-13.0) SEC INR (0.9-1.1) APTT (24.1-38.0) SEC D-Dimer NG/ML Hold Blue Top Sodium (135-145) mmol/L Potassium (3.3-5.1) mmol/L Chloride (96-108) mmol/L Carbon Dioxide (22-29) mmol/L Anion Gap (12-20) BUN (9-16) mg/dL Creatinine (0.5-1.4) mg/dL Estim Creat Clear Calc Estimated GFR Random Glucose (60-115) mg/dL Calcium (8.4-10.2) mg/dL Ferritin 1875 H (10-250) ng/mL Total Bilirubin (0.0-1.0) mg/dL Direct Bilirubin (0.0-0.5) mg/dL AST (5-31) U/L ALT (0-31) U/L Alkaline Phosphatase (39-117) U/L Lactate Dehydrogenase 381 H (122-220) U/L Troponin I High Sens 18.2 H (<3.5-17.0) ng/L C-Reactive Protein 16.68 H (< or = 0.50) mg/dL B-Natriuretic Peptide 46 (<100) pg/mL Total Protein (6.5-8.0) g/dL Albumin (3.5-5.0) g/dL Procalcitonin ng/mL Urine Color Urine Appearance Urine pH (5.0-8.0) Ur Specific [place] (1.005-1.025) Urine Protein (NEG-TRACE) MG/DL Urine Glucose (UA) (NEG) MG/DL Urine Ketones (NEG) MG/DL Urine Blood (NEG) Urine Nitrite (NEG) Ur Leukocyte Esterase (NEG) Urine RBC (0) /HPF Urine WBC (0-4) /HPF Ur Squamous Epith Cells /LPF Amorphous Sediment /LPF Urine Bacteria /LPF Granular Casts /LPF 03/04/21 03/04/21 Range/Units 12:41 17:47 WBC (4.8-10.8) X10*3/uL RBC (4.20-5.50) X10*6/uL Hgb (12.0-16.0) g/dl Hct (37-47) % MCV (80-98) fL MCH (27.0-33.0) pg MCHC (31.0-35.0) g/dl RDW (11.0-16.0) % Plt Count (160-400) X10*3/uL MPV (9.4-12.3) fL Immature Gran % (Auto) (0.0-0.4) % Neut % (Auto) (45-73) % Lymph % (Auto) (20-40) % Craig % (Auto) (2-11) % Eos % (Auto) (0-4) % Baso % (Auto) (0-2) % Lymph # (Auto) (1.2-4.9) X10*3/uL Craig # (Auto) (0.1-1.2) X10*3/uL Eos # (Auto) (0.0-0.4) X10*3/uL Baso # (Auto) (0.0-0.2) X10*3/uL Abs Immat Gran (auto) (0.00-0.03) X10*3/uL Absolute Neuts (auto) (2.0-8.3) X10*3/uL Absolute Nucleated RBC (0.0-0.012) X10*3/uL Nucleated RBC % (auto) (0.0-0.2) /100WBC Smear Tech's Comments PT (10.8-13.0) SEC INR (0.9-1.1) APTT (24.1-38.0) SEC D-Dimer NG/ML Hold Blue Top Sodium (135-145) mmol/L Potassium (3.3-5.1) mmol/L Chloride (96-108) mmol/L Carbon Dioxide (22-29) mmol/L Anion Gap (12-20) BUN (9-16) mg/dL Creatinine (0.5-1.4) mg/dL Estim Creat Clear Calc Estimated GFR Random Glucose (60-115) mg/dL Calcium (8.4-10.2) mg/dL Ferritin (10-250) ng/mL Total Bilirubin (0.0-1.0) mg/dL Direct Bilirubin (0.0-0.5) mg/dL AST (5-31) U/L ALT (0-31) U/L Alkaline Phosphatase (39-117) U/L Lactate Dehydrogenase (122-220) U/L Troponin I High Sens (<3.5-17.0) ng/L C-Reactive Protein (< or = 0.50) mg/dL B-Natriuretic Peptide (<100) pg/mL Total Protein (6.5-8.0) g/dL Albumin (3.5-5.0) g/dL Procalcitonin 0.68 ng/mL Urine Color YELLOW Urine Appearance HAZY Urine pH 6.0 (5.0-8.0) Ur Specific [place] 1.025 (1.005-1.025) Urine Protein 2+ H (NEG-TRACE) MG/DL Urine Glucose (UA) NEG (NEG) MG/DL Urine Ketones NEG (NEG) MG/DL Urine Blood 1+ H (NEG) Urine Nitrite NEG (NEG) Ur Leukocyte Esterase NEG (NEG) Urine RBC 0 (0) /HPF Urine WBC 1-4 (0-4) /HPF Ur Squamous Epith Cells TRACE /LPF Amorphous Sediment 3+ /LPF Urine Bacteria TRACE /LPF Granular Casts 5-9 /LPF Imaging Data Chest/abdomen CT: Radiologist's impression: Dictated by Dr. micah Ignacio at 1328. Accession number a [id number] [facility] Impression; 1. There is essentially stable radiographic disease at baseline on multiple bony abnormalities. There are difficult to directly compare and may not reflect activity of disease. 2. Extensive patchy ground-glass opacities throughout the lungs could represent viral pneumonia. Head CT: Radiologist's impression: [address] [id number] Scan ReportSigned Patient: Ajit Moe#: [id number]: [id number]:[id number]/Sex: 75 / FADM Date: 03/04/21Loc: EDAttbishop Dr: Ordering Physician: Carlos Emanuel NP Date of Service: 03/04/21 Procedure(s): CT head/brain wo con Accession Number(s): [id number] cc: Carlos Emanuel REAL ESTATE INVESTOR~ EXAMINATION: CT HEAD WITHOUT CONTRAST CLINICAL INFORMATION: Altered mental status COMPARISON: None TECHNIQUE: Contiguous axial imaging was performed from the skull base to vertex without intravenous administration of contrast. This CT examination was performed using dose optimization techniques as appropriate, variously including the following: *Automated exposure control *Adjustment of mA and/or kV according to patient size (this includes techniques or standardized protocols for targeted exams where dose is matched to indication/reason for exam; i.e. extremities or head) *Use of iterative reconstruction technique DLP: 1049 mGy-cm FINDINGS: Technically limited study due to patient motion. No definite intra-axial or extra-axial hemorrhage. No acute territorial infarct his evident. Ventricles and sulci appear normal. Preservation of art-white matter differentiation. No mass, mass effect, or midline shift. No fracture. The mastoid air cells and visualized paranasal sinuses are clear. CT/CT head/brain wo con IMPRESSION: Technically limited study due to patient motion artifact, with no obvious acute abnormality. Dictated By:ROSALBA LATIF MDSigned By:<Electronically signed by ROSALBA LATIF MD in OV>03/04/21 1339 DD/ 1219TD/TT: Twisting Operator: CHERIE Chest x-ray: Radiologist's impression: Altagracia Moe 75 F [address] [id number] ReportSigned with Addenda Patient: Altagracia MoeMR#: [id number]: [id number]:[id number]/Sex: 75 / FADM Date: 03/04/21Loc: HO.EDAttending Dr: Ordering Physician: Carlos Emanuel NP Date of Service: 03/04/21 Procedure(s): XR chest 1V Accession Number(s): [id number] cc: Carlos Emanuel NP~ ADDENDUMAddendum: The results were discussed with Carlos Emanuel Addendum Dictated By:ROSALBA CORNELL MDAddendum Signed By:<Electronically signed by ROSALBA CORNELL MD in OV>03/04/21 1309Addendum Cosigned By:DD/ /9TD/TT: / EXAMINATION: XR CHEST CLINICAL INFORMATION: Altered mental status. Reported history of lung cancer per the referring provider. COMPARISON: 12/16/2020. TECHNIQUE: Portable AP upright view of the chest was obtained. FINDINGS: Cardiac silhouette is at the upper limits of normal in size. Moderate peribronchial thickening is seen bilaterally with increased right perihilar markings. Patchy peripheral opacities are seen in the mid and lower lung and possibly in the mid to upper left lung, new compared to prior. No evidence of pleural effusion. No pneumothorax. Advanced degenerative changes are seen in the right shoulder. XR/XR chest 1V IMPRESSION: Patchy peripheral opacities are seen in the lungs, right greater than left. The findings could reflect an atypical viral infectious process including covid 19 pneumonia. Moderate peribronchial thickening and increased perihilar markings identified. Dictated By:ROSALBA CORNELL MDSigned By:<Electronically signed by ROSALBA CORNELL MD in OV>03/04/21 1308 DD/ 1219TD/TT: Twisting Operator: CHERIE Discharge Plan Discharge Clinical Impression: MARII (acute kidney injury), Pneumonia due to 2019 novel coronavirus, Encephalopathy Patient Disposition: Admitted As Inpatient
--- NOTE | 2021-03-04 12:12 | PC.NURSE ---
patient alert to person/place, very poor historian, iv inserted, labs drawn, user interface developer applied sinus trudy 60s, vss, pt denies pain or discomfort at this time, will continue to monitor.
--- NOTE | 2021-03-04 12:19 | ECG_ITS ---
Test Reason : COVID Blood Pressure : / mmHG Vent. Rate : 059 BPM Atrial Rate : 059 BPM P-R Int : 128 ms QRS Dur : 086 ms QT Int : 474 ms P-R-T Axes : 035 052 004 degrees QTc Int : 469 ms Sinus bradycardia Nonspecific ST abnormality Abnormal ECG When compared with ECG of 16-DEC-2020 12:47, QT has shortened Referred By: Carlos Emanuel Electronically Signed By:LORRI LUCAS
[2021-03-04 12:20] LABS: Basophils Percent Auto 0.2 % (0-2); Hematocrit 33.1 % (37-47); Hemoglobin 11.3 g/dl (12.0-16.0); Imm Gran Abs Auto 0.07 X10*3/uL (0.00-0.03); Imm Gran Pct Auto 1.4 % (0.0-0.4); Lymphocytes Absolute Auto 0.5 X10*3/uL (1.2-4.9); Lymphocytes Percent Auto 10.4 % (20-40); Mean Corpuscular HGB Conc 34.1 g/dl (31.0-35.0); Mean Corpuscular Hemoglobin 29.7 pg (27.0-33.0); Mean Corpuscular Volume 87.1 fL (80-98); Mean Platelet Volume 11.3 fL (9.4-12.3); Monocytes Absolute Auto 0.2 X10*3/uL (0.1-1.2); Monocytes Percent Auto 3.3 % (2-11); Neutrophils Absolute Auto 4.1 X10*3/uL (2.0-8.3); Neutrophils Percent Auto 84.7 % (45-73); Platelet Count 153 X10*3/uL (160-400); Red Cell Distribution Width 14.3 % (11.0-16.0); SCAN SMEAR FLAG 1; White Blood Count 4.9 X10*3/uL (4.8-10.8)
[2021-03-04 12:26] LABS: MANUAL DIFF FLAG SCAN
[2021-03-04 12:32] LABS: INTERNATIONAL NORM RATIO 1.1 (0.9-1.1); Prothrombin Time 13.4 SEC (10.8-13.0)
[2021-03-04 12:43] LABS: D Dimer 1648 NG/ML
[2021-03-04] MEDS: 0.9 % Sodium Chloride 500 ML IV (12:43)
[2021-03-04 12:44] LABS: Alanine Aminotransferase 30 U/L (0-31); Albumin Level 3.9 g/dL (3.5-5.0); Alkaline Phosphatase 107 U/L (39-117); Anion Gap 21 (12-20); Aspartate Amino Transferase 50 U/L (5-31); Bilirubin Total 0.4 mg/dL (0.0-1.0); Blood Urea Nitrogen 76 mg/dL (9-16); Calcium 6.6 mg/dL (8.4-10.2); Carbon Dioxide 14 mmol/L (22-29); Chloride 101 mmol/L (96-108); Creatinine Clr Calc Pharmacy 19.2; Estimated Glomerular Filt Rate 20; Glucose Random 164 mg/dL (60-115); Potassium 3.9 mmol/L (3.3-5.1); Sodium 132 mmol/L (135-145)
--- NOTE | 2021-03-04 12:56 | PC.NURSE ---
patients romel garcia called to state that the patients will lopez has been moved to ICU and is now vented + covid and that the patient is unaware of this. she also stated that she has been unbalanced while walking/increased weakness, not eating and having chills.
[2021-03-04 13:02] LABS: SLIDE REVIEW VERIFIED
[2021-03-04 13:09] LABS: Bilirubin Direct 0.2 mg/dL (0.0-0.5)
[2021-03-04 13:17] LABS: C Reactive Protein 16.68 mg/dL (< or = 0.50); Lactate Dehydrogenase 381 U/L (122-220)
[2021-03-04 13:24] LABS: B Type Natriuretic Peptide 46 pg/mL (<100); Troponin-I High Sensitivity 18.2 ng/L (<3.5-17.0)
[2021-03-04 13:38] LABS: Procalcitonin 0.68 ng/mL
[2021-03-04 14:18] LABS: Ferritin 1875 ng/mL (10-250)
[2021-03-04 15:09] VITALS: BP 98/53; PULSE 68; RESP 22; TEMP 36.4; O2SAT 100
[2021-03-04] MEDS: LORazepam 2 MG/ML VIAL 0.5 MG IVPUSH (15:21)
--- NOTE | 2021-03-04 15:22 | PC.NURSE ---
pt medicated per order
[2021-03-04 16:00] VITALS: BP 94/35; PULSE 71; RESP 18; TEMP 36.8; O2SAT 95
[2021-03-04 17:53] LABS: Glucose Urine UA NEG (NEG); Leukocyte Esterase Urine NEG (NEG); Nitrite Urine NEG (NEG); Specific Gravity - Urine 1.025 (1.005-1.025); Urine Blood 1+ (NEG); Urine Ketones NEG (NEG); Urine Protein 2+ MG/DL (NEG-TRACE)
[2021-03-04 17:54] LABS: Appearance Urine HAZY; Color Urine YELLOW
[2021-03-04 18:01] LABS: RBC Urine 0 /HPF (0); Squamous Epithelial Cell Urine TRACE /LPF
[2021-03-04 18:02] LABS: Amorphous Sediment Urine 3+ /LPF; Bacteria Urine TRACE /LPF
[2021-03-04 18:15] VITALS: RESP 18
--- NOTE | 2021-03-04 18:15 | PC.NURSE ---
patient currently sleeping, rr 18, will continue to monitor.
[2021-03-04 20:22] VITALS: BP 105/51; PULSE 76; RESP 18; TEMP 39.4; O2SAT 95
--- NOTE | 2021-03-04 20:39 | PC.NURSE ---
[facility] was notified of patients temp verbally ordered 975 tylenol for patient had to utilize 325 and 650 orders combined
[2021-03-04] MEDS: Acetaminophen 325 MG TABLET 650 MG PO (20:46)
[2021-03-04] MEDS: Acetaminophen 325 MG TABLET PO (20:47)
--- NOTE | 2021-03-04 20:58 | PC.NURSE ---
med req updated with patients pharmacy list as well as a list EMS brought from patients home, pt unable to verbalize medications at this time.
--- NOTE | 2021-03-04 21:30 | P.HPHOSP_ITS ---
History of Present Illness Date of Service: 03/04/21 Chief Complaint: N/V/D 75-year-old Swedish-speaking only female with a history of multiple myeloma, hypothyroidism, COVID-19 pneumonia diagnosed 3 days ago outpatient who presents to the hospital by family due to decreased p.o. intake, increased confusion, nausea vomiting and diarrhea. Patient is a very poor historian, very difficult to get any history out of her, is not forthcoming with information. Therefore history is mostly obtained from EMR and ED PA. Unable to obtain review of system is patient not forthcoming with any answers. Patient's is currently in the ICU with COVID-19 pneumonia and intubated. On arrival to the ED patient vitals significant for temp of 97.6?, heart rate of 68, respiratory rate of 22, blood pressure of 98/53, satting 100% on room air Labs are significant for WBC count of 4.9, hemoglobin of 11.3, hematocrit 33.1, sodium of 132, BUN of 76, creatinine of 2.36 with a baseline around 0.83, ferritin of 1875, AST of 50, LDH of 381, high sensitivity troponin of 18.2, and CRP of 16.68, UA negative, chest CT shows evidence of viral pneumonia bilateral infiltrates. Patient will be admitted for further management. Review of Systems Review of Systems: Yes Unobtainable due to mental status [facility] Medical History Depression H/O gastroesophageal reflux (GERD) Hx of multiple myeloma Hypothyroidism Family History Daughter Diabetes Thyroid cancer Surgical History History of bone marrow biopsy History of cholecystectomy Social History (Updated 12/16/20 @ 17:40 by SOHAN Zarco) Household Members: Spouse and Children Housing: House Do you presently have visiting nurse or other home services: Yes ( once in a while ) Alcohol intake: never Smoking Status: Light tobacco smoker Tobacco Type: Cigarette Years Smoked: 20 Second Hand Smoke Exposure: No Use of substances other than those prescribed or required for medical reasons: No Currently Displaying Signs/Symptoms of Drug Intoxication Withdrawal: No Have you been hit, kicked, punched, or otherwise hurt by someone within the past year? If so, by whom?: No Do you feel safe in your current relationship?: No Is there a partner from a previous relationship who is making you feel unsafe now?: No Are you made to feel afraid or neglected: No Advance Directives: No Advance Directives Information Provided: Yes Do you have thoughts of harming others: None Do you have a plan to hurt others: No Plan Recently lost weight without trying: No service: No Current occupational status: employed Meds Allergies Allergy/AdvReac Type Severity Reaction Status Date / Time No Known Allergies Allergy Verified 12/16/20 11:14 [No Known Allergies*] Home Medications Medication Instructions Recorded Confirmed Last Taken Type levothyroxine 75 mcg PO DAILY 10/27/20 03/04/21 11/02/20 07:00 History oxycodone 10 mg PO Q12H 10/27/20 03/04/21 Unknown History aspirin 81 mg PO DAILY 12/16/20 03/04/21 Unknown History fluoxetine 20 mg PO QAM 12/16/20 03/04/21 Unknown History mirtazapine 30 mg PO BEDTIME 12/16/20 03/04/21 Unknown History calcium carbonate 600 mg PO TID 03/04/21 03/04/21 Unknown History Physical Exam Vital Signs and Narrative: Vital Signs: Last Vital Signs Temp 103.0 F H 03/04/21 20:22 Pulse 76 03/04/21 20:22 Resp 18 03/04/21 20:22 BP 105/51 L 03/04/21 20:22 Pulse Ox 95 03/04/21 20:22 Body Mass Index 25.7 Const: General: no acute distress and ill appearing Eyes: General: appearance normal, both eyes and all related structures Resp: Effort & Inspection: normal respiratory effort Cardio: Rate: regular rate Rhythm: regular rhythm GI: Palpation (GI): Soft to palpation Auscultation: normal bowel sounds Skin: General skin exam: no rashes or lesions noted Neuro: Cognition (Neuro): normal cognition Extrem: General: Yes normal to inspection and Yes no pedal edema Results Labs CBC and Chem 7: 03/04/21 12:09 03/04/21 12:09 Labs: Laboratory Results - last 24 hr 03/04/21 03/04/21 03/04/21 12:09 12:09 12:09 MCV 87.1 MCH 29.7 MCHC 34.1 RDW 14.3 Plt Count 153 L MPV 11.3 Immature Gran % (Auto) 1.4 H Neut % (Auto) 84.7 H Lymph % (Auto) 10.4 L [place] % (Auto) 3.3 Eos % (Auto) 0.0 Baso % (Auto) 0.2 Lymph # (Auto) 0.5 L [place] # (Auto) 0.2 Eos # (Auto) 0.0 Baso # (Auto) 0.0 Abs Immat Gran (auto) 0.07 H Absolute Neuts (auto) 4.1 Absolute Nucleated RBC 0.000 Nucleated RBC % (auto) 0.0 Smear Tech's Comments VERIFIED PT 13.4 H INR 1.1 APTT 33.0 D-Dimer 1648 Hold Blue Top SEE NOTE Anion Gap 21 H Estim Creat Clear Calc 19.2 Estimated GFR 20 Random Glucose 164 H D Calcium 6.6 L D Ferritin Total Bilirubin 0.4 Direct Bilirubin 0.2 AST 50 H D ALT 30 Alkaline Phosphatase 107 D Lactate Dehydrogenase Troponin I High Sens C-Reactive Protein B-Natriuretic Peptide Total Protein 8.0 D Albumin 3.9 D Procalcitonin Urine Color Urine Appearance Urine pH Ur Specific [place] Urine Protein Urine Glucose (UA) Urine Ketones Urine Blood Urine Nitrite Ur Leukocyte Esterase Urine RBC Urine WBC Ur Squamous Epith Cells Amorphous Sediment Urine Bacteria Granular Casts 03/04/21 03/04/21 03/04/21 12:41 12:41 12:41 MCV MCH MCHC RDW Plt Count MPV Immature Gran % (Auto) Neut % (Auto) Lymph % (Auto) [place] % (Auto) Eos % (Auto) Baso % (Auto) Lymph # (Auto) [place] # (Auto) Eos # (Auto) Baso # (Auto) Abs Immat Gran (auto) Absolute Neuts (auto) Absolute Nucleated RBC Nucleated RBC % (auto) Smear Tech's Comments PT INR APTT D-Dimer Hold Blue Top Anion Gap Estim Creat Clear Calc Estimated GFR Random Glucose Calcium Ferritin 1875 H Total Bilirubin Direct Bilirubin AST ALT Alkaline Phosphatase Lactate Dehydrogenase 381 H Troponin I High Sens 18.2 H C-Reactive Protein 16.68 H B-Natriuretic Peptide 46 Total Protein Albumin Procalcitonin Urine Color Urine Appearance Urine pH Ur Specific [place] Urine Protein Urine Glucose (UA) Urine Ketones Urine Blood Urine Nitrite Ur Leukocyte Esterase Urine RBC Urine WBC Ur Squamous Epith Cells Amorphous Sediment Urine Bacteria Granular Casts 03/04/21 03/04/21 12:41 17:47 MCV MCH MCHC RDW Plt Count MPV Immature Gran % (Auto) Neut % (Auto) Lymph % (Auto) [place] % (Auto) Eos % (Auto) Baso % (Auto) Lymph # (Auto) [place] # (Auto) Eos # (Auto) Baso # (Auto) Abs Immat Gran (auto) Absolute Neuts (auto) Absolute Nucleated RBC Nucleated RBC % (auto) Smear Tech's Comments PT INR APTT D-Dimer Hold Blue Top Anion Gap Estim Creat Clear Calc Estimated GFR Random Glucose Calcium Ferritin Total Bilirubin Direct Bilirubin AST ALT Alkaline Phosphatase Lactate Dehydrogenase Troponin I High Sens C-Reactive Protein B-Natriuretic Peptide Total Protein Albumin Procalcitonin 0.68 Urine Color YELLOW Urine Appearance HAZY Urine pH 6.0 Ur Specific [place] 1.025 Urine Protein 2+ H Urine Glucose (UA) NEG Urine Ketones NEG Urine Blood 1+ H Urine Nitrite NEG Ur Leukocyte Esterase NEG Urine RBC 0 Urine WBC 1-4 Ur Squamous Epith Cells TRACE Amorphous Sediment 3+ Urine Bacteria TRACE Granular Casts 5-9 Imaging Radiologist's Impressions: Impressions Chest X-Ray 03/04/21 12:19 IMPRESSION: Patchy peripheral opacities are seen in the lungs, right greater than left. The findings could reflect an atypical viral infectious process including covid 19 pneumonia. Moderate peribronchial thickening and increased perihilar markings identified. Head CT 03/04/21 12:19 IMPRESSION: Technically limited study due to patient motion artifact, with no obvious acute abnormality. Assessment and Plan (1) MARII (acute kidney injury): Status: Acute (2) Pneumonia due to 2019 novel coronavirus: Status: Acute (3) Encephalopathy: Status: Acute (4) Nausea vomiting and diarrhea: Status: Acute 75-year-old female who presents to the hospital brought in by her family with complaints of encephalopathy as well as low oral intake nausea vomiting and diarrhea. 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 with COVID-19 pneumonia intubated in the ICU - patient not hypoxic - will admit patient, follow mental status, follow respiratory status # COVID-19 pneumonia - no hypoxia - will follow respiratory status # MARII - Most likely secondary to nausea vomiting diarrhea, and poor oral intake - was started on IV fluids - urine studies - follow BMP # nausea vomiting diarrhea - most likely secondary to COVID-19 - will rule out C diff - IV fluids - supportive measures DVT prophylaxis: Heparin subQ
[2021-03-04 22:07] VITALS: BP 96/47; PULSE 72; RESP 18; TEMP 37.9; O2SAT 95
--- NOTE | 2021-03-04 22:20 | PC.NURSE ---
report given to [facility] nurse
[2021-03-04] MEDS: Heparin Sodium,Porcine 5,000 UNIT/ML VIAL 5000 UNIT SUBCUT (23:56)
[2021-03-04] MEDS: 0.9 % Sodium Chloride 1,000 ML 100 ML IVCONT (23:57)
[2021-03-05] VITALS (7 sets, daily range): BP systolic 97–148; BP diastolic 48–86; PULSE 64–78; RESP 18–20; TEMP 36.1–37.8; O2SAT 90–97
[2021-03-05] MEDS: 0.9 % Sodium Chloride Flush 3 ML SYRINGE IVFLUSH ×3 (01:26→20:36)
[2021-03-05] MEDS: Levothyroxine Sodium 75 MCG TABLET PO (06:08)
[2021-03-05 07:54] LABS: Hematocrit 31.8 % (37-47); Mean Corpuscular HGB Conc 34.6 g/dl (31.0-35.0); Mean Corpuscular Hemoglobin 30.7 pg (27.0-33.0); Mean Corpuscular Volume 88.8 fL (80-98); Mean Platelet Volume 11.9 fL (9.4-12.3); Platelet Count 155 X10*3/uL (160-400); Red Blood Count 3.58 X10*6/uL (4.20-5.50); Red Cell Distribution Width 14.6 % (11.0-16.0); White Blood Count 4.7 X10*3/uL (4.8-10.8)
[2021-03-05 08:28] LABS: Lymphocytes Absolute Manual 0.7 X10*3/uL (0.6-4.8); Lymphocytes Percent Manual 15 % (20-40); Monocytes Absolute Manual 0.1 X10*3/uL (0.0-1.2); Monocytes Percent Manual 2 % (2-11); Neutrophils Percent Manual 83 % (45-73); RBC Morphology NOTED
[2021-03-05 08:29] LABS: Burr Cells 1+ (0-2) /OIF; Large Platelet PRESENT; Ovalocytes 1+ (5-14) /OIF; Platelet Estimate NORMAL (NORMAL); Platelet Morphology Comment NOTED; Toxic Vacuolation PRESENT
[2021-03-05] MEDS: oxyCODONE HCl Immed Release 5 MG TABLET 10 MG PO ×2 (08:36→20:36)
[2021-03-05] MEDS: FLUoxetine HCl 20 MG CAPSULE PO (08:37)
[2021-03-05] MEDS: Aspirin 81 MG TAB.CHEW PO (08:37)
[2021-03-05 08:40] LABS: Anion Gap 19 (12-20); Blood Urea Nitrogen 74 mg/dL (9-16); Carbon Dioxide 14 mmol/L (22-29); Chloride 107 mmol/L (96-108); Creatinine Clr Calc Pharmacy 20.4; Estimated Glomerular Filt Rate 21; Glucose Random 94 mg/dL (60-115); Potassium 3.9 mmol/L (3.3-5.1); Sodium 136 mmol/L (135-145)
[2021-03-05] MEDS: 0.9 % Sodium Chloride 1,000 ML 100 ML IVCONT ×2 (08:42→20:38)
[2021-03-05 09:07] LABS: Band Neutrophils Percent 0 % (3-5); Neutrophils Absolute Manual 3.9 X10*3/uL (2.2-7.9)
--- NOTE | 2021-03-05 09:51 | PM.PNNEP ---
Subjective Subjective Date of Service: 03/05/21 Physical Exam Vital Signs: Vital Signs: Last Vital Signs Temp 97.5 F 03/05/21 08:00 Pulse 67 03/05/21 08:00 Resp 20 03/05/21 08:00 BP 148/63 H 03/05/21 08:00 Pulse Ox 95 03/05/21 08:00 Body Mass Index 25.7 Objective Data Labs CBC & Chem 7: 03/05/21 06:35 03/05/21 06:35 Labs: Laboratory Results - last 24 hr 03/04/21 03/04/21 03/04/21 12:09 12:09 12:09 WBC 4.9 RBC 3.80 L Hgb 11.3 L Hct 33.1 L MCV 87.1 MCH 29.7 MCHC 34.1 RDW 14.3 Plt Count 153 L MPV 11.3 Immature Gran % (Auto) 1.4 H Neut % (Auto) 84.7 H Lymph % (Auto) 10.4 L [place] % (Auto) 3.3 Eos % (Auto) 0.0 Baso % (Auto) 0.2 Lymph # (Auto) 0.5 L [place] # (Auto) 0.2 Eos # (Auto) 0.0 Baso # (Auto) 0.0 Abs Immat Gran (auto) 0.07 H Absolute Neuts (auto) 4.1 Absolute Nucleated RBC 0.000 Nucleated RBC % (auto) 0.0 Neutrophils % (Manual) Band Neutrophils % Lymphocytes % (Manual) Monocytes % (Manual) Abs Neuts (Manual) Lymphocytes # (Manual) Monocytes # (Manual) Toxic Vacuolation Platelet Estimate Large Platelets Plt Morphology Comment RBC Morphology Ovalocytes Atiya Cells Smear Tech's Comments VERIFIED PT 13.4 H INR 1.1 APTT 33.0 D-Dimer 1648 Hold Blue Top SEE NOTE Sodium 132 L Potassium 3.9 Chloride 101 Carbon Dioxide 14 L Anion Gap 21 H BUN 76 H D Creatinine 2.36 H Estim Creat Clear Calc 19.2 Estimated GFR 20 Random Glucose 164 H D Calcium 6.6 L D Ferritin Total Bilirubin 0.4 Direct Bilirubin 0.2 AST 50 H D ALT 30 Alkaline Phosphatase 107 D Lactate Dehydrogenase Troponin I High Sens C-Reactive Protein B-Natriuretic Peptide Total Protein 8.0 D Albumin 3.9 D Procalcitonin Urine Color Urine Appearance Urine pH Ur Specific [place] Urine Protein Urine Glucose (UA) Urine Ketones Urine Blood Urine Nitrite Ur Leukocyte Esterase Urine RBC Urine WBC Ur WBC Total Counted Ur Squamous Epith Cells Amorphous Sediment Urine Bacteria Granular Casts Urine Eosinophils Urine Eosinophils % Ur Random Sodium Urine Creatinine 03/04/21 03/04/21 03/04/21 12:41 12:41 12:41 WBC RBC Hgb Hct MCV MCH MCHC RDW Plt Count MPV Immature Gran % (Auto) Neut % (Auto) Lymph % (Auto) [place] % (Auto) Eos % (Auto) Baso % (Auto) Lymph # (Auto) [place] # (Auto) Eos # (Auto) Baso # (Auto) Abs Immat Gran (auto) Absolute Neuts (auto) Absolute Nucleated RBC Nucleated RBC % (auto) Neutrophils % (Manual) Band Neutrophils % Lymphocytes % (Manual) Monocytes % (Manual) Abs Neuts (Manual) Lymphocytes # (Manual) Monocytes # (Manual) Toxic Vacuolation Platelet Estimate Large Platelets Plt Morphology Comment RBC Morphology Ovalocytes [place] Cells Smear Tech's Comments PT INR APTT D-Dimer Hold Blue Top Sodium Potassium Chloride Carbon Dioxide Anion Gap BUN Creatinine Estim Creat Clear Calc Estimated GFR Random Glucose Calcium Ferritin 1875 H Total Bilirubin Direct Bilirubin AST ALT Alkaline Phosphatase Lactate Dehydrogenase 381 H Troponin I High Sens 18.2 H C-Reactive Protein 16.68 H B-Natriuretic Peptide 46 Total Protein Albumin Procalcitonin Urine Color Urine Appearance Urine pH Ur Specific [place] Urine Protein Urine Glucose (UA) Urine Ketones Urine Blood Urine Nitrite Ur Leukocyte Esterase Urine RBC Urine WBC Ur WBC Total Counted Ur Squamous Epith Cells Amorphous Sediment Urine Bacteria Granular Casts Urine Eosinophils Urine Eosinophils % Ur Random Sodium Urine Creatinine 03/04/21 03/04/21 03/04/21 12:41 17:47 17:47 WBC RBC Hgb Hct MCV MCH MCHC RDW Plt Count MPV Immature Gran % (Auto) Neut % (Auto) Lymph % (Auto) [place] % (Auto) Eos % (Auto) Baso % (Auto) Lymph # (Auto) [place] # (Auto) Eos # (Auto) Baso # (Auto) Abs Immat Gran (auto) Absolute Neuts (auto) Absolute Nucleated RBC Nucleated RBC % (auto) Neutrophils % (Manual) Band Neutrophils % Lymphocytes % (Manual) Monocytes % (Manual) Abs Neuts (Manual) Lymphocytes # (Manual) Monocytes # (Manual) Toxic Vacuolation Platelet Estimate Large Platelets Plt Morphology Comment RBC Morphology Ovalocytes Atiya Cells Smear Tech's Comments PT INR APTT D-Dimer Hold Blue Top Sodium Potassium Chloride Carbon Dioxide Anion Gap BUN Creatinine Estim Creat Clear Calc Estimated GFR Random Glucose Calcium Ferritin Total Bilirubin Direct Bilirubin AST ALT Alkaline Phosphatase Lactate Dehydrogenase Troponin I High Sens C-Reactive Protein B-Natriuretic Peptide Total Protein Albumin Procalcitonin 0.68 Urine Color YELLOW Urine Appearance HAZY Urine pH 6.0 Ur Specific [place] 1.025 Urine Protein 2+ H Urine Glucose (UA) NEG Urine Ketones NEG Urine Blood 1+ H Urine Nitrite NEG Ur Leukocyte Esterase NEG Urine RBC 0 Urine WBC 1-4 Ur WBC Total Counted Cancelled Ur Squamous Epith Cells TRACE Amorphous Sediment 3+ Urine Bacteria TRACE Granular Casts 5-9 Urine Eosinophils Cancelled Urine Eosinophils % Cancelled Ur Random Sodium Cancelled Urine Creatinine Cancelled 03/05/21 03/05/21 06:35 06:35 WBC 4.7 L RBC 3.58 L Hgb 11.0 L Hct 31.8 L MCV 88.8 MCH 30.7 MCHC 34.6 RDW 14.6 Plt Count 155 L MPV 11.9 Immature Gran % (Auto) Cancelled Neut % (Auto) Cancelled Lymph % (Auto) Cancelled [place] % (Auto) Cancelled Eos % (Auto) Cancelled Baso % (Auto) Cancelled Lymph # (Auto) Cancelled [place] # (Auto) Cancelled Eos # (Auto) Cancelled Baso # (Auto) Cancelled Abs Immat Gran (auto) Cancelled Absolute Neuts (auto) Cancelled Absolute Nucleated RBC 0.000 Nucleated RBC % (auto) 0.0 Neutrophils % (Manual) 83 H Band Neutrophils % 0 L Lymphocytes % (Manual) 15 L Monocytes % (Manual) 2 Abs Neuts (Manual) 3.9 Lymphocytes # (Manual) 0.7 Monocytes # (Manual) 0.1 Toxic Vacuolation PRESENT Platelet Estimate NORMAL Large Platelets PRESENT Plt Morphology Comment NOTED RBC Morphology NOTED Ovalocytes 1+ (5-14) Atiya Cells 1+ (0-2) Smear Tech's Comments PT INR APTT D-Dimer Hold Blue Top Sodium 136 Potassium 3.9 Chloride 107 Carbon Dioxide 14 L Anion Gap 19 BUN 74 H Creatinine 2.22 H Estim Creat Clear Calc 20.4 Estimated GFR 21 Random Glucose 94 D Calcium 6.0 L* D Ferritin Total Bilirubin Direct Bilirubin AST ALT Alkaline Phosphatase Lactate Dehydrogenase Troponin I High Sens C-Reactive Protein B-Natriuretic Peptide Total Protein Albumin Procalcitonin Urine Color Urine Appearance Urine pH Ur Specific [place] Urine Protein Urine Glucose (UA) Urine Ketones Urine Blood Urine Nitrite Ur Leukocyte Esterase Urine RBC Urine WBC Ur WBC Total Counted Ur Squamous Epith Cells Amorphous Sediment Urine Bacteria Granular Casts Urine Eosinophils Urine Eosinophils % Ur Random Sodium Urine Creatinine Assessment & Plan Assessment and plan (1) MARII (acute kidney injury): Problem details: DDX; Hypoperfusion from LOW BP / Ischemic ATN No obstruction r/o Myeloma kidney ,etc ATN(Covid related) Hypocalcemia post denosumab work up ordered Add CACo3/Calcitriol Dictated Thanks Status: Acute Time Spent With Patient Time: Total time spent is greater than 50% in coordination of care (as documented) at patient's floor/unit and/or counseling patient:
[2021-03-05] MEDS: Calcium Gluconate/NaCl,Iso-Osm 2 GM/100 ML PLAST..BAG IV (11:21)
[2021-03-05] MEDS: Heparin Sodium,Porcine 5,000 UNIT/ML VIAL 5000 UNIT SUBCUT ×2 (11:21→22:58)
--- NOTE | 2021-03-05 12:22 | MHC.CM.PN ---
Addendum entered by Ashleigh Mosley 03/05/21 13:58: PATIENT HAS NAMED HER GRAND DAUGHTER, WHITNEY ([phone]) HER ALTERNATE HCP. PTS , SARAY, REMAINS THE PRIMARY AGENT. Original Note: CM received a call from pts grand daughter who reports concern that the pt has a HCP naming her who is currently in the ICU. G-dtr reports the pts and the pt are each others HCP and they are both sick. CM explained the process of changing a HCP and assured caller that it would be discussed with pt. CM prepared document and will determine if pt is agreeable to adding an alternate agent. pts grand daughter provided the info needed to add her to the HCP: Whitney Doan [address] [place] [id number] CM did attempt to contact pt by phone to discuss this however she did not answer. Pt is Welsh speaking only and on a COVID-19 isolation unit. CM will try calling again and/or ask pts nurse for assistance in reaching her.
[2021-03-05 12:49] LABS: Total Protein Urine Random 194 mg/dL (<12)
[2021-03-05 12:52] LABS: Creatinine Urine 150.45 mg/dL; Sodium Urine Random < 20.0 mmol/L
--- NOTE | 2021-03-05 14:07 | MHC.CM.PN ---
PT COMPLETED A NEW HCP TODAY, ADDING HER GRAND DAUGHTER, ADRIANA SHAFFER ([phone]) AN ALTERNATE AGENT. CM CONTACTED ADRIANA TO COMPLETE SCIENTIFIC DIVER AND REVIEW PTS IMM. ADRIANA REPORTS THE PT LIVES WITH HER AND ONE OF HER SONS. SHE REPORTS THE PT DID HAVE A MAINTENANCE HELPER BUT SHE IS UNSURE IF IT IS ACTIVE OR ON HOLD DUE TO COVID 19. ADRIANA REPORTS THE PT DOES NOT HAVE DME AT HOME HOWEVER DURING HER LAST ADMISSION, PT INDICATED SHE HAD A CANE AND BEDSIDE COMMODE. ADRIANA REPORTS THE PCP WAS GOING TO REQUEST THOSE ITEMS BUT TO HER KNOWLEDGE THE PT DID NOT ACTUALLY GET THEM YET. ADRIANA CONFIRMS THE PTS PCP IS KATIE SHUKLA. NEW HCP IN CHART. IMM DELIVERED AND A COPY WILL BE SENT TO ADRIANA. DC PLAN IS TBD PENDING PTS RECOVERY.?PT EVAL WHEN MEDICALLY APPROPRIATE.
--- NOTE | 2021-03-05 14:41 | P.PNIM_ITS ---
Subjective Subjective Date of Service: 03/05/21 Interval History: the patient was seen and evaluated this morning Laying in bed, looks comfortable overall Not making a lot of urine with kidney function still elevated No reported other overnight events. Systemic review: Not significantly helpful with review but denies chest pain, shortness of breath, fever Physical Exam Vital Signs: Vital Signs: Last Vital Signs Temp 97.1 F 03/05/21 12:00 Pulse 76 03/05/21 12:00 Resp 20 03/05/21 12:00 BP 139/86 03/05/21 12:00 Pulse Ox 97 03/05/21 12:00 Body Mass Index 25.7 Const: Other: Constitutional : Alert, disoriented mildly anxious Neck : Normal inspection, Supple Cardiovascular : Nausea BP, no lower extremity edema Respiratory : Chest wall moving bilaterally, no audible wheezes or rhonchi Gastrointestinal: soft, lax, Non tender Skin : Warm/Dry, No rash Neurological : Alert , disoriented, No focal deficit Objective Data Current Medications Generic Name Dose Route Start Last Admin Trade Name Freq PRN Reason Stop Dose Admin Acetaminophen 650 mg 03/04/21 22:42 Acetaminophen 325 Mg Tablet PO Q6H PRN Pain, Mild (Pain Scale 1-3) Aspirin 81 mg 03/05/21 09:00 03/05/21 08:37 Aspirin 81 Mg Tab.Chew PO 81 mg DAILY KULDEEP Administration Calcitriol 0.25 mcg 03/06/21 09:00 Calcitriol 0.25 Mcg Capsule PO 03/10/21 09:01 DAILY KULDEEP Calcium Carbonate 500 mg 03/05/21 15:00 Calcium Carbonate 500 Mg Tablet PO TID KULDEEP Docusate Sodium 100 mg 03/04/21 22:42 Docusate Sodium 100 Mg Capsule PO DAILY PRN Constipation Fluoxetine HCl 20 mg 03/05/21 09:00 03/05/21 08:37 Fluoxetine Hcl 20 Mg Capsule PO 20 mg DAILY KULDEEP Administration Heparin Sodium (Porcine) 5,000 unit 03/04/21 22:42 03/05/21 11:21 Heparin Sodium,Porcine 5,000 Unit/Ml Vial SUBCUT 5,000 unit Q12H KULDEEP Administration Sodium Chloride 1,000 mls @ 100 mls/hr 03/04/21 22:42 03/05/21 08:42 Ns IVCONT 100 mls/hr .Q10H KULDEEP Administration Levothyroxine Sodium 75 mcg 03/05/21 06:00 03/05/21 06:08 Levothyroxine Sodium 75 Mcg Tablet PO 75 mcg DAILY@0600 KULDEEP Administration Mirtazapine 30 mg 03/05/21 21:00 Mirtazapine 30 Mg Tablet PO BEDTIME [facility] Non-Formulary Medication 10 mg 03/05/21 09:00 Lenalidomide [Revlimid] PO DAILY KULDEEP Ondansetron HCl 4 mg 03/04/21 22:42 Ondansetron Hcl 4 Mg/2 Ml Vial IVPUSH Q8H PRN Nausea and Vomiting Oxycodone HCl 10 mg 03/05/21 09:00 03/05/21 08:36 Oxycodone Hcl Immed Release 5 Mg Tablet PO 10 mg BID KULDEEP Administration Sodium Chloride 3 ml 03/05/21 00:00 03/05/21 08:37 0.9 % Sodium Chloride Flush 3 Ml Syringe IVFLUSH 3 ml QSHIFT KULDEEP Administration Labs CBC & Chem 7: 03/05/21 06:35 03/05/21 06:35 Assessment and Plan (1) MARII (acute kidney injury): Problem details: DDX; Hypoperfusion from LOW BP / Ischemic ATN No obstruction r/o Myeloma kidney ,etc ATN(Covid related) Hypocalcemia post denosumab work up ordered Add CACo3/Calcitriol Dictated Thanks Status: Acute (2) Pneumonia due to 2019 novel coronavirus: Status: Acute (3) Encephalopathy: Status: Acute (4) Nausea vomiting and diarrhea: Status: Acute Assessment and Plan: 75-year-old female who presents to the hospital brought in by her family with complaints of encephalopathy as well as low oral intake nausea vomiting and diarrhea. Toxic metabolic encephalopathy likely secondary to COVID, kidney injury, electrolyte imbalance Recurrent reorientation Avoid medications that might alter her mentation COVID-19 pneumonia no hypoxia will follow respiratory status MARII Metabolic acidosis low likely secondary to prerenal, medications Creatinine 2.2 this morning Continue IV fluids urine studies Intake and output Nephrology input appreciated, nausea vomiting diarrhea likely secondary to COVID-19 Pending C diff Continue IV fluids Zofran for nausea Hypocalcemia Very low calcium of 6 Post denosumab? To check vitamin-D and PTH Give calcium replacement IV, Add CACo3/Calcitriol Follow BMP Multiple lytic lesions in bone CT scan as reported secondary to multiple myeloma Followed by Oncology as outpatient DVT prophylaxis: Heparin subQ
[2021-03-05] MEDS: Mirtazapine 30 MG TABLET PO (20:36)
[2021-03-06] MEDS: Acetaminophen 325 MG TABLET 650 MG PO ×2 (00:05→06:24)
[2021-03-06 03:40] VITALS: BP 103/51; PULSE 66; RESP 18; TEMP 36.9; O2SAT 93
[2021-03-06] MEDS: 0.9 % Sodium Chloride 1,000 ML 100 ML IVCONT ×2 (06:21→17:44)
[2021-03-06] MEDS: Levothyroxine Sodium 75 MCG TABLET PO (06:21)
[2021-03-06 06:53] LABS: Hematocrit 27.1 % (37-47); Hemoglobin 9.5 g/dl (12.0-16.0); Mean Corpuscular HGB Conc 35.1 g/dl (31.0-35.0); Mean Corpuscular Hemoglobin 31.7 pg (27.0-33.0); Mean Corpuscular Volume 90.3 fL (80-98); Mean Platelet Volume 11.1 fL (9.4-12.3); Platelet Count 144 X10*3/uL (160-400)
[2021-03-06 07:10] VITALS: BP 110/56; PULSE 68; RESP 18; TEMP 36.8; O2SAT 91
[2021-03-06 07:16] LABS: Anion Gap 17 (12-20); Blood Urea Nitrogen 54 mg/dL (9-16); Calcium 6.3 mg/dL (8.4-10.2); Carbon Dioxide 14 mmol/L (22-29); Chloride 115 mmol/L (96-108); Creatinine Clr Calc Pharmacy 24.3; Estimated Glomerular Filt Rate 26; Glucose Random 82 mg/dL (60-115); Potassium 3.9 mmol/L (3.3-5.1); Sodium 142 mmol/L (135-145)
[2021-03-06] MEDS: FLUoxetine HCl 20 MG CAPSULE PO (08:54)
[2021-03-06] MEDS: Aspirin 81 MG TAB.CHEW PO (08:54)
[2021-03-06] MEDS: calcitrioL 0.25 MCG CAPSULE PO (08:54)
[2021-03-06] MEDS: oxyCODONE HCl Immed Release 5 MG TABLET 10 MG PO ×2 (08:54→21:56)
[2021-03-06] MEDS: Sodium Bicarbonate 650 MG TABLET PO ×2 (10:34→21:56)
[2021-03-06] MEDS: Heparin Sodium,Porcine 5,000 UNIT/ML VIAL 5000 UNIT SUBCUT ×2 (10:34→21:56)
--- NOTE | 2021-03-06 10:35 | MHC.CM.PN ---
Per MD, Patient is not yet medically cleared for dc (Kidney Function elevated and making just a little urine). Home resume services vs STR is the dc plan and CM will continue to follow.
--- NOTE | 2021-03-06 10:54 | CONS_ITS ---
DATE OF SERVICE: 03/05/2021 REASON FOR CONSULTATION: I was called to see this patient to assist in the management of acute kidney injury. HISTORY OF PRESENT ILLNESS: To summarize, Altagracia is known to us from the previous admission. She is a 75-year-old woman with a history of multiple myeloma, who had hypercalcemia, which was treated with denosumab and she has had chronic hypocalcemia at present. She has been admitted with COVID pneumonia. During this admission, she has sustained acute kidney injury and the serum creatinine was 2.36 yesterday compared to the baseline of 0.83 and hence this consultation. PAST MEDICAL HISTORY: Ongoing medical problems include history of multiple myeloma, chronic hypocalcemia, status post denosumab; history of GERD and she is positive for H pylori by biopsy, hypothyroidism, depression. FAMILY HISTORY: Significant for diabetes and thyroid cancer. PAST SURGICAL HISTORY: Includes cholecystectomy and bone marrow biopsy. SOCIAL HISTORY: No history of any smoking at present. She has no history of any alcohol intake. At present, she smokes almost every day. ALLERGIES: SHE HAS NO KNOWN DRUG ALLERGIES. HOME MEDICATIONS: Include levothyroxine, aspirin, fluoxetine, mirtazapine, oxycodone. REVIEW OF SYSTEMS: Rather limited. She denies any headache, nausea, vomiting, abdominal pain, diarrhea, or constipation. She does have some shortness of breath on exertion. No fever. All other systems were reviewed. PHYSICAL EXAMINATION: GENERAL: Altagracia is an elderly woman. She appears cachectic, not in any distress. NECK: Supple. No JVD. HEENT: Mucosa is dry. LUNGS: Bilateral scattered rhonchi. HEART: S1, S2 heard. No gallop. ABDOMEN: Soft, nontender. EXTREMITIES: No edema. No rash. No clubbing. VITAL SIGNS: Blood pressure was 148/63. She did have significant hypotension since admission. Pulse 67. Temperature, she is afebrile. DIAGNOSTIC DATA: CT chest showed bilateral pneumonia. CT abdomen showed no hydronephrosis, no evidence of obstruction. LABORATORY DATA: Today, hemoglobin 11.0, platelets 155,000, WBC 4.7. Sodium 130, potassium 3.9, BUN , creatinine 2.2, calcium 6.0. Ferritin 1875. LDH 381. Troponin I 18.2. Urinalysis showed 2+ protein by dipstick, 1+ rbc's. This is a new finding compared to November. IMPRESSION: 75-year-old woman with history of multiple myeloma and essentially normal renal function in the past, admitted with COVID pneumonia, currently has acute kidney injury. The differential diagnosis for acute kidney injury was certainly include acute tubular necrosis in the setting of COVID-19 infection. There is no evidence of obstruction. However, she may have myeloma related renal pathology including myeloma kidney. The urinalysis shows protein and blood this time, which was not present during previous admission. RECOMMENDATIONS: My recommendation is to obtain a spot urine for sodium, creatinine, protein. Optimize blood pressure. Keep systolic blood pressure more than 100 mmHg and continue to avoid hypotension. She has persistent hypocalcemia, which is probably related to the use of denosumab. We will check the PTH and add calcium carbonate tablets 3 times a day along with calcitriol 0.25 mcg for 5 days and follow the calcium. We will follow along with the team. MD CECIL Roberts/MARIN / [id number]
[2021-03-06 11:15] VITALS: BP 127/84; PULSE 69; RESP 20; TEMP 36.3; O2SAT 96
--- NOTE | 2021-03-06 12:45 | PM.PNNEP ---
Subjective Subjective Date of Service: 03/06/21 Interval history: Seen and examined. Events noted Physical Exam Vital Signs: Vital Signs: Last Vital Signs Temp 97.4 F 03/06/21 11:15 Pulse 69 03/06/21 11:15 Resp 20 03/06/21 11:15 BP 127/84 03/06/21 11:15 Pulse Ox 96 03/06/21 11:15 Body Mass Index 25.7 Const: Other: Constitutional : Alert, disoriented mildly anxious Neck : Normal inspection, Supple Cardiovascular : Nausea BP, no lower extremity edema Respiratory : Chest wall moving bilaterally, no audible wheezes or rhonchi Gastrointestinal: soft, lax, Non tender Skin : Warm/Dry, No rash Neurological : Alert , disoriented, No focal deficit General: cooperative, no acute distress, acute distress and ill appearing Nutritional Appearance: average body habitus Orientation/consciousness: oriented to person HENMT: Head: Yes normal to inspection Ears: hearing grossly normal bilaterally Eyes: General: appearance normal, both eyes and all related structures Visual Clemons: normal visual clemons by confrontation EOM: EOMs intact bilaterally Neck: Neck: Yes normal visual inspection, No positive Brudzinski's sign, No positive Kernig's sign and No tender Thyroid: Thyroid normal Chest: Chest palpation & inspection: normal inspection of the chest Resp: Effort & Inspection: normal respiratory effort Auscultation: clear to auscultation bilaterally Cardio: Jugular venous distension: no JVD Rate: regular rate Rhythm: regular rhythm Heart sounds: S1 normal heart sound present and S2 normal heart sound present GI: Inspection: Yes normal to inspection Palpation (GI): Soft to palpation Percussion: Yes normal to percussion Auscultation: normal bowel sounds : General: Yes no CVA tenderness Back/Spine/Pelvis: Back: no CVA tenderness Skin: General skin exam: no rashes or lesions noted Neuro: General: oriented to person Cognition (Neuro): normal cognition Extrem: General: Yes normal to inspection and Yes no pedal edema Objective Data Labs CBC & Chem 7: 03/06/21 05:46 03/06/21 05:46 Labs: Laboratory Results - last 24 hr 03/05/21 03/05/21 03/05/21 06:35 12:02 12:02 WBC RBC Hgb Hct MCV MCH MCHC RDW Plt Count MPV Absolute Nucleated RBC Nucleated RBC % (auto) Sodium Potassium Chloride Carbon Dioxide Anion Gap BUN Creatinine Estim Creat Clear Calc Estimated GFR Random Glucose Calcium Magnesium 2.0 25-OH Vitamin D Total 11.0 U Random Total Protein 194 H Ur Random Sodium < 20.0 Urine Creatinine 150.45 03/06/21 03/06/21 05:46 05:46 WBC 6.0 RBC 3.00 L Hgb 9.5 L Hct 27.1 L MCV 90.3 MCH 31.7 MCHC 35.1 H RDW 15.0 Plt Count 144 L MPV 11.1 Absolute Nucleated RBC 0.000 Nucleated RBC % (auto) 0.0 Sodium 142 Potassium 3.9 Chloride 115 H Carbon Dioxide 14 L Anion Gap 17 BUN 54 H Creatinine 1.86 H Estim Creat Clear Calc 24.3 Estimated GFR 26 Random Glucose 82 Calcium 6.3 L Magnesium 25-OH Vitamin D Total U Random Total Protein Ur Random Sodium Urine Creatinine Assessment & Plan Assessment and plan (1) MARII (acute kidney injury): Problem details: 1. Non-Oliguric MARII: grad decr SCr but still not at bsl (0.8 ) W/U in progress multifact ATN pre-renal Myeloma Kidney OBs: no evid on CT but still may need renal U.S to r/o Obs Covid assoc cytokine ATN 2. NAGMA: 3. HypoCa: recent dneusamab Grad decr Scr is a good sign REC: cont po calcirtriol and incr PO Ca; check phos level; monito UOP; check UAC and UPCr ratio; may need additional IVF; cont PO NaHCO3 will follow with team Status: Acute Assessment and Plan: 7 Time Spent With Patient Time: Total time spent is greater than 50% in coordination of care (as documented) at patient's floor/unit and/or counseling patient:
[2021-03-06] MEDS: Calcium Gluconate/NaCl,Iso-Osm 2 GM/100 ML PLAST..BAG IV (13:12)
[2021-03-06 13:49] LABS: Phosphorus 3.6 mg/dL (2.7-4.5)
--- NOTE | 2021-03-06 14:02 | HO.PM.IMPN ---
Subjective Subjective Date of Service: 03/06/21 Interval History: the patient was seen and evaluated this morning Laying in bed, looks comfortable overall Urine output improved More alert and interactive but mildly confused No reported other overnight events. Systemic review: No fever, chills but reports weakness No chest pain, palpitation No shortness of breath or coughing No abdominal pain, nausea or vomiting No urinary symptoms No any rash or wounds Physical Exam Vital Signs: Vital Signs: Last Vital Signs Temp 97.4 F 03/06/21 11:15 Pulse 69 03/06/21 11:15 Resp 20 03/06/21 11:15 BP 127/84 03/06/21 11:15 Pulse Ox 96 03/06/21 11:15 Body Mass Index 25.7 Const: Other: Constitutional : Alert, disoriented mildly anxious Neck : Normal inspection, Supple Cardiovascular : Nausea BP, no lower extremity edema Respiratory : Chest wall moving bilaterally, no audible wheezes or rhonchi Gastrointestinal: soft, lax, Non tender Skin : Warm/Dry, No rash Neurological : Alert , disoriented, No focal deficit Objective Data Current Medications Generic Name Dose Route Start Last Admin Trade Name Freq PRN Reason Stop Dose Admin Acetaminophen 650 mg 03/04/21 22:42 03/06/21 06:24 Acetaminophen 325 Mg Tablet PO 650 mg Q6H PRN Administration Pain, Mild (Pain Scale 1-3) Aspirin 81 mg 03/05/21 09:00 03/06/21 08:54 Aspirin 81 Mg Tab.Chew PO 81 mg DAILY KULDEEP Administration Calcitriol 0.25 mcg 03/06/21 09:00 03/06/21 08:54 Calcitriol 0.25 Mcg Capsule PO 03/10/21 09:01 0.25 mcg DAILY KULDEEP Administration Calcium Carbonate 1,000 mg 03/06/21 15:00 Calcium Carbonate 500 Mg Tablet PO TID KULDEEP Docusate Sodium 100 mg 03/04/21 22:42 Docusate Sodium 100 Mg Capsule PO DAILY PRN Constipation Fluoxetine HCl 20 mg 03/05/21 09:00 03/06/21 08:54 Fluoxetine Hcl 20 Mg Capsule PO 20 mg DAILY KULDEEP Administration Heparin Sodium (Porcine) 5,000 unit 03/04/21 22:42 03/06/21 10:34 Heparin Sodium,Porcine 5,000 Unit/Ml Vial SUBCUT 5,000 unit Q12H KULDEEP Administration Sodium Chloride 1,000 mls @ 75 mls/hr 03/04/21 22:42 03/06/21 06:21 Ns IVCONT 100 mls/hr .[id number] KULDEEP Administration Calcium Gluconate 2 gm in 100 mls @ 50 mls/hr 03/06/21 12:55 03/06/21 13:12 Calcium Gluconate IV 03/06/21 14:54 50 mls/hr ONCE ONE Administration Levothyroxine Sodium 75 mcg 03/05/21 06:00 03/06/21 06:21 Levothyroxine Sodium 75 Mcg Tablet PO 75 mcg DAILY@0600 KULDEEP Administration Mirtazapine 30 mg 03/05/21 21:00 03/05/21 20:36 Mirtazapine 30 Mg Tablet PO 30 mg BEDTIME KULDEEP Administration Non-Formulary Medication 10 mg 03/05/21 09:00 Lenalidomide [Revlimid] PO DAILY [facility] Ondansetron HCl 4 mg 03/04/21 22:42 Ondansetron Hcl 4 Mg/2 Ml Vial IVPUSH Q8H PRN Nausea and Vomiting Oxycodone HCl 10 mg 03/05/21 09:00 03/06/21 08:54 Oxycodone Hcl Immed Release 5 Mg Tablet PO 10 mg BID KULDEEP Administration Sodium Bicarbonate 650 mg 03/06/21 09:40 03/06/21 10:34 Sodium Bicarbonate 650 Mg Tablet PO 650 mg BID [facility] Administration Sodium Chloride 3 ml 03/05/21 00:00 03/06/21 08:55 0.9 % Sodium Chloride Flush 3 Ml Syringe IVFLUSH Not Given QSHIFT [facility] Labs CBC & Chem 7: 03/06/21 05:46 03/06/21 05:46 Assessment and Plan (1) MARII (acute kidney injury): Status: Acute (2) Pneumonia due to 2019 novel coronavirus: Status: Acute (3) Encephalopathy: Status: Acute (4) Nausea vomiting and diarrhea: Status: Acute Assessment and Plan: 75-year-old female who presents to the hospital brought in by her family with complaints of encephalopathy as well as low oral intake nausea vomiting and diarrhea. Toxic metabolic encephalopathy likely secondary to COVID, kidney injury, electrolyte imbalance Moving Recurrent reorientation Avoid medications that might alter her mentation COVID-19 pneumonia no hypoxia will follow respiratory status MARII Metabolic acidosis likely secondary to prerenal, medications Creatinine Bicarb of 14 Continue IV fluids Start sodium bicarbonate b.i.d. Intake and output Nephrology input appreciated, nausea vomiting diarrhea Improved, tolerating diet likely secondary to COVID-19 Continue IV fluids Zofran for nausea Hypocalcemia Very low calcium of 6.4 Post denosumab? Low vitamin-D and pending PTH Give calcium replacement IV, Add CACo3/Calcitriol Follow BMP Multiple lytic lesions in bone CT scan as reported secondary to multiple myeloma Followed by Oncology as outpatient DVT prophylaxis: Heparin subQ
[2021-03-06] MEDS: 0.9 % Sodium Chloride Flush 3 ML SYRINGE IVFLUSH ×2 (14:44→23:50)
[2021-03-06 15:08] LABS: Creatinine Urine 67.46 mg/dL; Total Protein Urine Random 146 mg/dL (<12)
[2021-03-06 15:19] LABS: Microalbum/Creatinine Ratio Ur 801.9 ug/mg cr
[2021-03-06 15:38] VITALS: BP 140/84; PULSE 77; RESP 20; TEMP 36.9
[2021-03-06 19:14] VITALS: BP 120/76; PULSE 80; RESP 20; TEMP 37.6; O2SAT 95
[2021-03-06] MEDS: Mirtazapine 30 MG TABLET PO (21:56)
[2021-03-06 23:35] VITALS: BP 123/82; PULSE 56; RESP 18; TEMP 38.8
[2021-03-07] VITALS (7 sets, daily range): BP systolic 111–141; BP diastolic 55–68; PULSE 64–76; RESP 18–19; TEMP 35.9–38.2; O2SAT 91–98
[2021-03-07] MEDS: Levothyroxine Sodium 75 MCG TABLET PO (05:59)
[2021-03-07] MEDS: 0.9 % Sodium Chloride 1,000 ML 100 ML IVCONT (05:59)
[2021-03-07 06:46] LABS: Hematocrit 23.7 % (37-47); Hemoglobin 8.8 g/dl (12.0-16.0); Mean Corpuscular HGB Conc 37.1 g/dl (31.0-35.0); Mean Corpuscular Hemoglobin 33.3 pg (27.0-33.0); Mean Corpuscular Volume 89.8 fL (80-98); Mean Platelet Volume 10.7 fL (9.4-12.3); Platelet Count 161 X10*3/uL (160-400); Red Blood Count 2.64 X10*6/uL (4.20-5.50); Red Cell Distribution Width 15.3 % (11.0-16.0)
[2021-03-07 07:23] LABS: Anion Gap 14 (12-20); Blood Urea Nitrogen 32 mg/dL (9-16); Calcium 6.7 mg/dL (8.4-10.2); Carbon Dioxide 15 mmol/L (22-29); Chloride 118 mmol/L (96-108); Creatinine Clr Calc Pharmacy 35.1; Estimated Glomerular Filt Rate 40; Glucose Random 94 mg/dL (60-115); Potassium 3.9 mmol/L (3.3-5.1); Sodium 143 mmol/L (135-145)
[2021-03-07] MEDS: Sodium Bicarbonate 650 MG TABLET PO ×2 (07:48→21:37)
[2021-03-07] MEDS: Aspirin 81 MG TAB.CHEW PO (07:48)
[2021-03-07] MEDS: Acetaminophen 325 MG TABLET 650 MG PO (07:48)
[2021-03-07] MEDS: calcitrioL 0.25 MCG CAPSULE PO (07:48)
[2021-03-07] MEDS: oxyCODONE HCl Immed Release 5 MG TABLET 10 MG PO ×2 (07:48→21:37)
[2021-03-07] MEDS: FLUoxetine HCl 20 MG CAPSULE PO (07:49)
[2021-03-07] MEDS: 0.9 % Sodium Chloride Flush 3 ML SYRINGE IVFLUSH ×2 (07:49→15:26)
[2021-03-07] MEDS: Heparin Sodium,Porcine 5,000 UNIT/ML VIAL 5000 UNIT SUBCUT ×2 (12:02→21:41)
[2021-03-07 12:22] LABS: Calcium (PTHI) 6.4 mg/dL (8.6-10.4); PTHI 154 pg/mL (14-64)
--- NOTE | 2021-03-07 12:36 | P.PNIM_ITS ---
Subjective Subjective Date of Service: 03/07/21 Interval History: the patient was seen and evaluated this morning Laying in bed, looks comfortable overall with no complaints but mildly confused kidney function improved More alert and interactive but mildly confused Spiking fever today No reported other overnight events. Systemic review: No fever, chills but reports weakness No chest pain, palpitation No shortness of breath or coughing No abdominal pain, nausea or vomiting No urinary symptoms No any rash or wounds Physical Exam Vital Signs: Vital Signs: Last Vital Signs Temp 96.6 F L 03/07/21 12:00 Pulse 64 03/07/21 12:00 Resp 19 03/07/21 12:00 BP 113/56 L 03/07/21 12:00 Pulse Ox 96 03/07/21 12:00 Body Mass Index 25.7 Const: Other: Constitutional : Alert, disoriented mildly anxious Neck : Normal inspection, Supple Cardiovascular : Nausea BP, no lower extremity edema Respiratory : Chest wall moving bilaterally, no audible wheezes or rhonchi Gastrointestinal: soft, lax, Non tender Skin : Warm/Dry, No rash Neurological : Alert , disoriented, No focal deficit Objective Data Current Medications Generic Name Dose Route Start Last Admin Trade Name Freq PRN Reason Stop Dose Admin Acetaminophen 650 mg 03/04/21 22:42 03/07/21 07:48 Acetaminophen 325 Mg Tablet PO 650 mg Q6H PRN Administration Pain, Mild (Pain Scale 1-3) Aspirin 81 mg 03/05/21 09:00 03/07/21 07:48 Aspirin 81 Mg Tab.Chew PO 81 mg DAILY KULDEEP Administration Calcitriol 0.25 mcg 03/06/21 09:00 03/07/21 07:48 Calcitriol 0.25 Mcg Capsule PO 03/10/21 09:01 0.25 mcg DAILY KULDEEP Administration Calcium Carbonate 1,000 mg 03/06/21 15:00 03/07/21 07:48 Calcium Carbonate 500 Mg Tablet PO 1,000 mg TID KULDEEP Administration Docusate Sodium 100 mg 03/04/21 22:42 Docusate Sodium 100 Mg Capsule PO DAILY PRN Constipation Fluoxetine HCl 20 mg 03/05/21 09:00 03/07/21 07:49 Fluoxetine Hcl 20 Mg Capsule PO 20 mg DAILY KULDEEP Administration Heparin Sodium (Porcine) 5,000 unit 03/04/21 22:42 03/07/21 12:02 Heparin Sodium,Porcine 5,000 Unit/Ml Vial SUBCUT 5,000 unit Q12H KULDEEP Administration Levothyroxine Sodium 75 mcg 03/05/21 06:00 03/07/21 05:59 Levothyroxine Sodium 75 Mcg Tablet PO 75 mcg DAILY@0600 KULDEEP Administration Mirtazapine 30 mg 03/05/21 21:00 03/06/21 21:56 Mirtazapine 30 Mg Tablet PO 30 mg BEDTIME KULDEEP Administration Non-Formulary Medication 10 mg 03/05/21 09:00 Lenalidomide [Revlimid] PO DAILY KULDEEP Ondansetron HCl 4 mg 03/04/21 22:42 Ondansetron Hcl 4 Mg/2 Ml Vial IVPUSH Q8H PRN Nausea and Vomiting Oxycodone HCl 10 mg 03/05/21 09:00 03/07/21 07:48 Oxycodone Hcl Immed Release 5 Mg Tablet PO 10 mg BID KULDEEP Administration Sodium Bicarbonate 650 mg 03/06/21 09:40 03/07/21 07:48 Sodium Bicarbonate 650 Mg Tablet PO 650 mg BID KULDEEP Administration Sodium Chloride 3 ml 03/05/21 00:00 03/07/21 07:49 0.9 % Sodium Chloride Flush 3 Ml Syringe IVFLUSH 3 ml QSHIFT KULDEEP Administration Labs CBC & Chem 7: 03/07/21 06:13 03/07/21 06:13 Assessment and Plan (1) MARII (acute kidney injury): Status: Acute (2) Pneumonia due to 2019 novel coronavirus: Status: Acute (3) Encephalopathy: Status: Acute (4) Nausea vomiting and diarrhea: Status: Acute Assessment and Plan: 75-year-old female who presents to the hospital brought in by her family with complaints of encephalopathy as well as low oral intake nausea vomiting and di arrhea. Toxic metabolic encephalopathy likely secondary to COVID, kidney injury, electrolyte imbalance Recurrent reorientation Avoid medications that might alter her mentation COVID-19 pneumonia no hypoxia will follow respiratory status Fever Likely 2\2 Pneumonia CXR showing worsening bilateral infiltrates Start Doxy and Ceftriaxone B.cultures pending MARII Metabolic acidosis likely secondary to prerenal, medications Creatinine improved to 1.3 Bicarb of 15 DC IV fluids continue sodium bicarbonate b.i.d. Intake and output Nephrology input appreciated, Acute on chronic anemia Hb dropped to 8.8 from baseline of around 11 likely 2/2 dilution for IVF no source of bleeding identified occult blood check nausea vomiting diarrhea Improved, tolerating diet likely secondary to COVID-19 Zofran for nausea Hypocalcemia Ca improved to 6.7 Post denosumab? Low vitamin-D and high PTH Give calcium replacement IV, Add CACo3/Calcitriol Follow BMP Multiple lytic lesions in bone CT scan as reported secondary to multiple myeloma Followed by Oncology as outpatient DVT prophylaxis: Heparin subQ
[2021-03-07] MEDS: Doxycycline Hyclate 100 MG in 0.9 % Sodium Chloride 250 ML 166.67 MG IV (13:23)
[2021-03-07 14:17] LABS: Glucose Urine UA NEG (NEG); Leukocyte Esterase Urine NEG (NEG); Nitrite Urine NEG (NEG); Urine Blood 2+ (NEG); Urine Ketones NEG (NEG); Urine Protein 2+ MG/DL (NEG-TRACE)
[2021-03-07 14:19] LABS: Appearance Urine CLOUDY; Color Urine YELLOW
[2021-03-07 14:33] LABS: UACC CULT YES
[2021-03-07 14:34] LABS: Amorphous Sediment Urine 2+ /LPF; Granular Casts Urine 30-49 /LPF; Waxy Casts Urine 0-2 /LPF
[2021-03-07 14:35] LABS: Bacteria Urine 2+ /LPF
[2021-03-07] MEDS: cefTRIAXone sodium 1 GM in 0.9 % Sodium Chloride 50 ML IV (15:26)
--- NOTE | 2021-03-07 16:09 | PM.PNNEP ---
Subjective Subjective Date of Service: 03/07/21 Interval history: Seen and examined. Events noted Physical Exam Vital Signs: Vital Signs: Last Vital Signs Temp 97.5 F 03/07/21 15:35 Pulse 70 03/07/21 15:35 Resp 18 03/07/21 15:35 BP 135/59 L 03/07/21 15:35 Pulse Ox 91 L 03/07/21 15:35 Body Mass Index 25.7 Const: Other: Constitutional : Alert, disoriented mildly anxious Neck : Normal inspection, Supple Cardiovascular : Nausea BP, no lower extremity edema Respiratory : Chest wall moving bilaterally, no audible wheezes or rhonchi Gastrointestinal: soft, lax, Non tender Skin : Warm/Dry, No rash Neurological : Alert , disoriented, No focal deficit General: cooperative, no acute distress, acute distress and ill appearing Nutritional Appearance: average body habitus Orientation/consciousness: oriented to person HENMT: Head: Yes normal to inspection Ears: hearing grossly normal bilaterally Eyes: General: appearance normal, both eyes and all related structures Visual Clemons: normal visual clemons by confrontation EOM: EOMs intact bilaterally Neck: Neck: Yes normal visual inspection, No positive Brudzinski's sign, No positive Kernig's sign and No tender Thyroid: Thyroid normal Chest: Chest palpation & inspection: normal inspection of the chest Resp: Effort & Inspection: normal respiratory effort Auscultation: clear to auscultation bilaterally Cardio: Jugular venous distension: no JVD Rate: regular rate Rhythm: regular rhythm Heart sounds: S1 normal heart sound present and S2 normal heart sound present GI: Inspection: Yes normal to inspection Palpation (GI): Soft to palpation Percussion: Yes normal to percussion Auscultation: normal bowel sounds : General: Yes no CVA tenderness Back/Spine/Pelvis: Back: no CVA tenderness Skin: General skin exam: no rashes or lesions noted Neuro: General: oriented to person Cognition (Neuro): normal cognition Extrem: General: Yes normal to inspection and Yes no pedal edema Objective Data Labs CBC & Chem 7: 03/07/21 06:13 03/07/21 06:13 Labs: Laboratory Results - last 24 hr 03/06/21 03/07/21 03/07/21 08:07 06:13 06:13 WBC 9.0 RBC 2.64 L Hgb 8.8 L Hct 23.7 L MCV 89.8 MCH 33.3 H MCHC 37.1 H RDW 15.3 Plt Count 161 MPV 10.7 Absolute Nucleated RBC 0.000 Nucleated RBC % (auto) 0.0 Sodium 143 Potassium 3.9 Chloride 118 H Carbon Dioxide 15 L Anion Gap 14 BUN 32 H Creatinine 1.29 Estim Creat Clear Calc 35.1 Estimated GFR 40 Random Glucose 94 Calcium 6.7 L D PTH Intact 154 H Calcium (PTH Intact) 6.4 L Urine Color Urine Appearance Urine pH Ur Specific [place] Urine Protein Urine Glucose (UA) Urine Ketones Urine Blood Urine Nitrite Ur Leukocyte Esterase Urine RBC Urine WBC Ur Squamous Epith Cells Amorphous Sediment Urine Bacteria Granular Casts Waxy Casts 03/07/21 13:59 WBC RBC Hgb Hct MCV MCH MCHC RDW Plt Count MPV Absolute Nucleated RBC Nucleated RBC % (auto) Sodium Potassium Chloride Carbon Dioxide Anion Gap BUN Creatinine Estim Creat Clear Calc Estimated GFR Random Glucose Calcium PTH Intact Calcium (PTH Intact) Urine Color YELLOW Urine Appearance CLOUDY Urine pH 6.0 Ur Specific [place] 1.020 Urine Protein 2+ H Urine Glucose (UA) NEG Urine Ketones NEG Urine Blood 2+ H Urine Nitrite NEG Ur Leukocyte Esterase NEG Urine RBC 15-29 H Urine WBC 15-29 H Ur Squamous Epith Cells NONE Amorphous Sediment 2+ Urine Bacteria 2+ Granular Casts 30-49 Waxy Casts 0-2 Assessment & Plan Assessment and plan (1) MARII (acute kidney injury): Status: Acute Assessment and Plan: 1. Non-Oliguric MARII: grad decr SCr but still not at bsl (0.8 ) W/U in progress multifact ATN pre-renal Myeloma Kidney OBs: no evid on CT but still may need renal U.S to r/o Obs Covid assoc cytokine ATN 2. NAGMA: 3. HypoCa: recent dneusamab; grad incr on po calcitriol and PO Ca REC: incr po calcirtriol 0.5 and incr PO Ca; check phos level; monito UOP; check UAC and UPCr ratio; cont PO NaHCO3 will follow with team Time Spent With Patient Time: Total time spent is greater than 50% in coordination of care (as documented) at patient's floor/unit and/or counseling patient:
[2021-03-07] MEDS: Mirtazapine 30 MG TABLET PO (21:36)
[2021-03-08] VITALS (7 sets, daily range): BP systolic 128–170; BP diastolic 62–81; PULSE 67–80; RESP 18–20; TEMP 35.8–37.2; O2SAT 82–99
[2021-03-08] MEDS: Doxycycline Hyclate 100 MG in 0.9 % Sodium Chloride 250 ML 250 MG IV (01:09)
[2021-03-08] MEDS: 0.9 % Sodium Chloride Flush 3 ML SYRINGE IVFLUSH ×4 (01:09→21:23)
--- NOTE | 2021-03-08 06:00 | PC.NURSE ---
2 MAX ASSIST TO BEDSIDE COMMODE AT 2400.UNABLE TO VOID.BTB.BLADDER SCANNED FOR 111CC.THIS AM AT 0600 INCONT SMALL AMT URINE,BLADDER SCANNED FOR 99CC.WILL UPDATE NEXT SHIFT,CONT TO MONITOR.
[2021-03-08] MEDS: Levothyroxine Sodium 75 MCG TABLET PO (06:04)
[2021-03-08 07:03] LABS: Anion Gap 9 (12-20); Blood Urea Nitrogen 28 mg/dL (9-16); Calcium 6.8 mg/dL (8.4-10.2); Carbon Dioxide 16 mmol/L (22-29); Chloride 120 mmol/L (96-108); Creatinine Clr Calc Pharmacy 39.8; Estimated Glomerular Filt Rate 46; Glucose Random 97 mg/dL (60-115); Sodium 141 mmol/L (135-145)
[2021-03-08 07:13] LABS: Hematocrit 25.7 % (37-47); Hemoglobin 8.6 g/dl (12.0-16.0); Mean Corpuscular HGB Conc 33.5 g/dl (31.0-35.0); Mean Corpuscular Hemoglobin 29.3 pg (27.0-33.0); Mean Corpuscular Volume 87.4 fL (80-98); Mean Platelet Volume 10.7 fL (9.4-12.3); Platelet Count 169 X10*3/uL (160-400); Red Blood Count 2.94 X10*6/uL (4.20-5.50); Red Cell Distribution Width 15.5 % (11.0-16.0); White Blood Count 8.4 X10*3/uL (4.8-10.8)
[2021-03-08] MEDS: FLUoxetine HCl 20 MG CAPSULE PO (09:38)
[2021-03-08] MEDS: Heparin Sodium,Porcine 5,000 UNIT/ML VIAL 5000 UNIT SUBCUT ×2 (09:38→21:22)
[2021-03-08] MEDS: oxyCODONE HCl Immed Release 5 MG TABLET 10 MG PO ×2 (09:38→21:03)
[2021-03-08] MEDS: Sodium Bicarbonate 650 MG TABLET PO ×2 (09:38→21:03)
[2021-03-08] MEDS: calcitrioL 0.25 MCG CAPSULE 0.5 MCG PO (09:38)
[2021-03-08] MEDS: Aspirin 81 MG TAB.CHEW PO (09:38)
[2021-03-08] MEDS: dexAMETHasone sod phosphate 4 MG/ML VIAL 6 MG IVPUSH (12:22)
[2021-03-08] MEDS: Doxycycline Hyclate 100 MG in 0.9 % Sodium Chloride 250 ML 166.67 MG IV (12:23)
--- NOTE | 2021-03-08 13:26 | HO.PM.IMPN ---
Subjective Subjective Date of Service: 03/08/21 Interval History: Shortness of breath Cardiovascular Cardiovascular: Reports no additional cardiovascular complaints Respiratory Respiratory: Reports no additional respiratory complaints Physical Exam Vital Signs: Vital Signs: Last Vital Signs Temp 98 F 03/08/21 10:51 Pulse 75 03/08/21 10:51 Resp 19 03/08/21 10:51 BP 170/72 H 03/08/21 10:51 Pulse Ox 82 L 03/08/21 10:58 Body Mass Index 25.7 General: AO X 3, ill appearing Resp: Crackles CVS: S1,S2,RRR GI: soft, non tender, non distended Neuro: motor grossly intact Psych: appropriate affect Objective Data Current Medications Generic Name Dose Route Start Last Admin Trade Name Freq PRN Reason Stop Dose Admin Acetaminophen 650 mg 03/04/21 22:42 03/07/21 07:48 Acetaminophen 325 Mg Tablet PO 650 mg Q6H PRN Administration Pain, Mild (Pain Scale 1-3) Aspirin 81 mg 03/05/21 09:00 03/08/21 09:38 Aspirin 81 Mg Tab.Chew PO 81 mg DAILY KULDEEP Administration Calcitriol 0.5 mcg 03/08/21 09:00 03/08/21 09:38 Calcitriol 0.25 Mcg Capsule PO 03/10/21 09:01 0.5 mcg DAILY KULDEEP Administration Calcium Carbonate 1,000 mg 03/06/21 15:00 03/08/21 09:37 Calcium Carbonate 500 Mg Tablet PO 1,000 mg TID KULDEEP Administration Dexamethasone Sodium Phosphate 6 mg 03/08/21 10:55 03/08/21 12:22 Dexamethasone Sod Phosphate 4 Mg/Ml Vial IVPUSH 6 mg DAILY KULDEEP Administration Docusate Sodium 100 mg 03/04/21 22:42 Docusate Sodium 100 Mg Capsule PO DAILY PRN Constipation Fluoxetine HCl 20 mg 03/05/21 09:00 03/08/21 09:38 Fluoxetine Hcl 20 Mg Capsule PO 20 mg DAILY KULDEEP Administration Heparin Sodium (Porcine) 5,000 unit 03/04/21 22:42 03/08/21 09:38 Heparin Sodium,Porcine 5,000 Unit/Ml Vial SUBCUT 5,000 unit Q12H KULDEEP Administration Doxycycline Hyclate 100 mg/ 250 mls @ 166.67 mls/hr 03/07/21 13:00 03/08/21 12:23 Sodium Chloride IV 166.67 mls/hr Q12H KULDEEP Administration Ceftriaxone Sodium 1 gm/ 50 mls @ 100 mls/hr 03/07/21 14:00 03/07/21 16:06 Sodium Chloride IV Infused Q24H KULDEEP Infusion Levothyroxine Sodium 75 mcg 03/05/21 06:00 03/08/21 06:04 Levothyroxine Sodium 75 Mcg Tablet PO 75 mcg DAILY@0600 KULDEEP Administration Mirtazapine 30 mg 03/05/21 21:00 03/07/21 21:36 Mirtazapine 30 Mg Tablet PO 30 mg BEDTIME KULDEEP Administration Non-Formulary Medication 10 mg 03/05/21 09:00 Lenalidomide [Revlimid] PO DAILY KULDEEP Ondansetron HCl 4 mg 03/04/21 22:42 Ondansetron Hcl 4 Mg/2 Ml Vial IVPUSH Q8H PRN Nausea and Vomiting Oxycodone HCl 10 mg 03/05/21 09:00 03/08/21 09:38 Oxycodone Hcl Immed Release 5 Mg Tablet PO 10 mg BID KULDEEP Administration Sodium Bicarbonate 650 mg 03/06/21 09:40 03/08/21 09:38 Sodium Bicarbonate 650 Mg Tablet PO 650 mg BID KULDEEP Administration Sodium Chloride 3 ml 03/05/21 00:00 03/08/21 09:37 0.9 % Sodium Chloride Flush 3 Ml Syringe IVFLUSH 3 ml QSHIFT KULDEEP Administration Labs CBC & Chem 7: 03/08/21 05:21 03/08/21 05:21 Microbiology Microbiology Results: Microbiology 03/07/21 08:16 Blood - Venous Blood Culture - Preliminary No growth after 24 hours. 03/07/21 08:16 Blood - Venous Blood Culture - Preliminary No growth after 24 hours. 03/07/21 Unknown Urine clean catch - Clean Catch Midstream Urine Culture - Preliminary Gram negative leopoldo Assessment and Plan (1) MARII (acute kidney injury): Status: Acute (2) Pneumonia due to 2019 novel coronavirus: Status: Acute (3) Encephalopathy: Status: Acute (4) Nausea vomiting and diarrhea: Status: Acute Assessment and Plan: 75-year-old female who presents to the hospital brought in by her family with complaints of encephalopathy as well as low oral intake nausea vomiting and diarrhea. Toxic metabolic encephalopathy and acute hypoxic respiratory failure secondary to COVID, kidney injury, electrolyte imbalance started decadron day 12/04, as now hypoxic no evidence of bacterial infection, dc antibiotics MARII improving hypocalcemia improved, continue oral calcium, calcitriol MM outpatinet managment revlimid
--- NOTE | 2021-03-08 19:25 | PM.PNNEP ---
Subjective Subjective Date of Service: 03/08/21 Interval history: Seen and examined. Events noted Physical Exam Vital Signs: Vital Signs: Last Vital Signs Temp 96.8 F 03/08/21 19:07 Pulse 80 03/08/21 19:07 Resp 20 03/08/21 19:07 BP 132/68 03/08/21 19:07 Pulse Ox 99 03/08/21 19:07 Body Mass Index 25.7 Const: Other: Constitutional : Alert, disoriented mildly anxious Neck : Normal inspection, Supple Cardiovascular : Nausea BP, no lower extremity edema Respiratory : Chest wall moving bilaterally, no audible wheezes or rhonchi Gastrointestinal: soft, lax, Non tender Skin : Warm/Dry, No rash Neurological : Alert , disoriented, No focal deficit General: cooperative, no acute distress, acute distress and ill appearing Nutritional Appearance: average body habitus Orientation/consciousness: oriented to person HENMT: Head: Yes normal to inspection Ears: hearing grossly normal bilaterally Eyes: General: appearance normal, both eyes and all related structures Visual Clemons: normal visual clemons by confrontation EOM: EOMs intact bilaterally Neck: Neck: Yes normal visual inspection, No positive Brudzinski's sign, No positive Kernig's sign and No tender Thyroid: Thyroid normal Chest: Chest palpation & inspection: normal inspection of the chest Resp: Effort & Inspection: normal respiratory effort Auscultation: clear to auscultation bilaterally Cardio: Jugular venous distension: no JVD Rate: regular rate Rhythm: regular rhythm Heart sounds: S1 normal heart sound present and S2 normal heart sound present GI: Inspection: Yes normal to inspection Palpation (GI): Soft to palpation Percussion: Yes normal to percussion Auscultation: normal bowel sounds : General: Yes no CVA tenderness Back/Spine/Pelvis: Back: no CVA tenderness Skin: General skin exam: no rashes or lesions noted Neuro: General: oriented to person Cognition (Neuro): normal cognition Extrem: General: Yes normal to inspection and Yes no pedal edema Objective Data Labs CBC & Chem 7: 03/08/21 05:21 03/08/21 05:21 Labs: Laboratory Results - last 24 hr 03/08/21 03/08/21 05:21 05:21 WBC 8.4 RBC 2.94 L Hgb 8.6 L Hct 25.7 L MCV 87.4 MCH 29.3 MCHC 33.5 RDW 15.5 Plt Count 169 MPV 10.7 Absolute Nucleated RBC 0.000 Nucleated RBC % (auto) 0.0 Sodium 141 Potassium 4.0 Chloride 120 H Carbon Dioxide 16 L Anion Gap 9 L BUN 28 H Creatinine 1.14 Estim Creat Clear Calc 39.8 Estimated GFR 46 Random Glucose 97 Calcium 6.8 L Microbiology Microbiology Results: Microbiology 03/07/21 08:16 Blood - Venous Blood Culture - Preliminary No growth after 24 hours. 03/07/21 08:16 Blood - Venous Blood Culture - Preliminary No growth after 24 hours. 03/07/21 Unknown Urine clean catch - Clean Catch Midstream Urine Culture - Preliminary Gram negative leopoldo Assessment & Plan Assessment and plan (1) MARII (acute kidney injury): Status: Acute Assessment and Plan: 1. Non-Oliguric MARII: grad decr SCr but still not at bsl (0.8 ) W/U in progress multifact ATN pre-renal Myeloma Kidney: doubt given decr SCr OBs: no evid on CT but still may need renal U.S to r/o Obs Covid assoc cytokine ATN 2. NAGMA: 3. HypoCa: recent dneusamab; grad incr on po calcitriol and PO Ca; SCa 6.8 REC: cont po calcirtriol 0.5 and incr PO Ca and track; monito UOP; check UAC and UPCr ratio; cont PO NaHCO3 will follow with team Time Spent With Patient Time: Total time spent is greater than 50% in coordination of care (as documented) at patient's floor/unit and/or counseling patient:
[2021-03-08] MEDS: Mirtazapine 30 MG TABLET PO (21:03)
[2021-03-09 03:48] VITALS: BP 146/63; PULSE 66; RESP 18; TEMP 37.2; O2SAT 93
[2021-03-09] MEDS: Levothyroxine Sodium 75 MCG TABLET PO (06:39)
[2021-03-09 07:37] LABS: Basophils Percent Auto 0.2 % (0-2); Hemoglobin 8.2 g/dl (12.0-16.0); Imm Gran Abs Auto 0.04 X10*3/uL (0.00-0.03); Imm Gran Pct Auto 0.7 % (0.0-0.4); MANUAL DIFF FLAG SCAN; Mean Corpuscular HGB Conc 37.3 g/dl (31.0-35.0); Mean Corpuscular Hemoglobin 33.9 pg (27.0-33.0); Mean Corpuscular Volume 90.9 fL (80-98); Mean Platelet Volume 10.8 fL (9.4-12.3); Monocytes Absolute Auto 0.3 X10*3/uL (0.1-1.2); Monocytes Percent Auto 4.4 % (2-11); Neutrophils Absolute Auto 4.7 X10*3/uL (2.0-8.3); Neutrophils Percent Auto 77.7 % (45-73); Platelet Count 185 X10*3/uL (160-400); Red Blood Count 2.42 X10*6/uL (4.20-5.50); Red Cell Distribution Width 15.9 % (11.0-16.0); SCAN SMEAR FLAG 1; White Blood Count 6.1 X10*3/uL (4.8-10.8)
[2021-03-09 07:45] VITALS: BP 139/65; PULSE 65; RESP 22; TEMP 36.6; O2SAT 90
[2021-03-09 07:54] LABS: D Dimer 2124 NG/ML
[2021-03-09 08:03] LABS: Alanine Aminotransferase 20 U/L (0-31); Albumin Level 2.6 g/dL (3.5-5.0); Alkaline Phosphatase 71 U/L (39-117); Anion Gap 12 (12-20); Aspartate Amino Transferase 27 U/L (5-31); Bilirubin Direct 0.2 mg/dL (0.0-0.5); Bilirubin Total 0.4 mg/dL (0.0-1.0); Blood Urea Nitrogen 31 mg/dL (9-16); Calcium 7.2 mg/dL (8.4-10.2); Carbon Dioxide 19 mmol/L (22-29); Chloride 118 mmol/L (96-108); Creatinine Clr Calc Pharmacy 47.2; Estimated Glomerular Filt Rate 57; Glucose Fasting 122 mg/dL (60-99); Potassium 4.4 mmol/L (3.3-5.1); Sodium 145 mmol/L (135-145); Total Protein 5.8 g/dL (6.5-8.0)
[2021-03-09 08:26] LABS: SLIDE REVIEW VERIFIED
[2021-03-09] MEDS: 0.9 % Sodium Chloride Flush 3 ML SYRINGE IVFLUSH ×4 (10:50→22:15)
[2021-03-09] MEDS: Aspirin 81 MG TAB.CHEW PO (10:50)
[2021-03-09] MEDS: calcitrioL 0.25 MCG CAPSULE 0.5 MCG PO (10:51)
[2021-03-09] MEDS: Sodium Bicarbonate 650 MG TABLET PO ×2 (10:53→20:20)
[2021-03-09] MEDS: oxyCODONE HCl Immed Release 5 MG TABLET 10 MG PO ×2 (10:53→20:20)
[2021-03-09] MEDS: dexAMETHasone sod phosphate 4 MG/ML VIAL 6 MG IVPUSH (10:53)
[2021-03-09] MEDS: Heparin Sodium,Porcine 5,000 UNIT/ML VIAL 5000 UNIT SUBCUT ×2 (10:54→22:08)
[2021-03-09] MEDS: FLUoxetine HCl 20 MG CAPSULE PO (10:54)
[2021-03-09 11:59] VITALS: BP 142/63; PULSE 59; RESP 19; TEMP 36.8; O2SAT 95
--- NOTE | 2021-03-09 12:08 | HO.PM.IMPN ---
Subjective Subjective Date of Service: 03/09/21 Interval History: sob Cardiovascular Cardiovascular: Reports no additional cardiovascular complaints Gastrointestinal Gastrointestinal: Reports no additional gastrointestinal complaints Physical Exam Vital Signs: Vital Signs: Last Vital Signs Temp 98.2 F 03/09/21 11:59 Pulse 59 03/09/21 11:59 Resp 19 03/09/21 11:59 BP 142/63 H 03/09/21 11:59 Pulse Ox 95 03/09/21 11:59 Body Mass Index 25.7 General: AO X 3, ill appearing Resp: Crackles CVS: S1,S2,RRR GI: soft, non tender, non distended Neuro: motor grossly intact Psych: appropriate affect Objective Data Current Medications Generic Name Dose Route Start Last Admin Trade Name Freq PRN Reason Stop Dose Admin Acetaminophen 650 mg 03/04/21 22:42 03/07/21 07:48 Acetaminophen 325 Mg Tablet PO 650 mg Q6H PRN Administration Pain, Mild (Pain Scale 1-3) Aspirin 81 mg 03/05/21 09:00 03/09/21 10:50 Aspirin 81 Mg Tab.Chew PO 81 mg DAILY KULDEEP Administration Calcitriol 0.5 mcg 03/08/21 09:00 03/09/21 10:51 Calcitriol 0.25 Mcg Capsule PO 03/10/21 09:01 0.5 mcg DAILY KULDEEP Administration Calcium Carbonate 1,000 mg 03/06/21 15:00 03/09/21 10:50 Calcium Carbonate 500 Mg Tablet PO 1,000 mg TID KULDEEP Administration Dexamethasone Sodium Phosphate 6 mg 03/08/21 10:55 03/09/21 10:53 Dexamethasone Sod Phosphate 4 Mg/Ml Vial IVPUSH 6 mg DAILY KULDEEP Administration Docusate Sodium 100 mg 03/04/21 22:42 Docusate Sodium 100 Mg Capsule PO DAILY PRN Constipation Fluoxetine HCl 20 mg 03/05/21 09:00 03/09/21 10:54 Fluoxetine Hcl 20 Mg Capsule PO 20 mg DAILY KULDEEP Administration Heparin Sodium (Porcine) 5,000 unit 03/04/21 22:42 03/09/21 10:54 Heparin Sodium,Porcine 5,000 Unit/Ml Vial SUBCUT 5,000 unit Q12H KULDEEP Administration Levothyroxine Sodium 75 mcg 03/05/21 06:00 03/09/21 06:39 Levothyroxine Sodium 75 Mcg Tablet PO 75 mcg DAILY@0600 KULDEEP Administration Mirtazapine 30 mg 03/05/21 21:00 03/08/21 21:03 Mirtazapine 30 Mg Tablet PO 30 mg BEDTIME KULDEEP Administration Non-Formulary Medication 10 mg 03/05/21 09:00 Lenalidomide [Revlimid] PO DAILY [facility] Ondansetron HCl 4 mg 03/04/21 22:42 Ondansetron Hcl 4 Mg/2 Ml Vial IVPUSH Q8H PRN Nausea and Vomiting Oxycodone HCl 10 mg 03/05/21 09:00 03/09/21 10:53 Oxycodone Hcl Immed Release 5 Mg Tablet PO 10 mg BID KULDEEP Administration Sodium Bicarbonate 650 mg 03/06/21 09:40 03/09/21 10:53 Sodium Bicarbonate 650 Mg Tablet PO 650 mg BID KULDEEP Administration Sodium Chloride 3 ml 03/05/21 00:00 03/09/21 10:50 0.9 % Sodium Chloride Flush 3 Ml Syringe IVFLUSH 3 ml QSHIFT KULDEEP Administration Labs CBC & Chem 7: 03/09/21 06:30 03/09/21 06:44 Microbiology Microbiology Results: Microbiology 03/07/21 08:16 Blood - Venous Blood Culture - Preliminary No growth after 48 hours. 03/07/21 08:16 Blood - Venous Blood Culture - Preliminary No growth after 48 hours. 03/07/21 Unknown Urine clean catch - Clean Catch Midstream Urine Culture - Final Citrobacter farmeri Assessment and Plan (1) MARII (acute kidney injury): Status: Acute (2) Pneumonia due to 2019 novel coronavirus: Status: Acute (3) Encephalopathy: Status: Acute (4) Nausea vomiting and diarrhea: Status: Acute Assessment and Plan: 75-year-old female who presents to the hospital brought in by her family with complaints of encephalopathy as well as low oral intake nausea vomiting and diarrhea. Toxic metabolic encephalopathy and acute hypoxic respiratory failure secondary to COVID, kidney injury, electrolyte imbalance started decadron day 01/04, as now hypoxic MARII improving hypocalcemia improved, continue oral calcium, calcitriol MM outpatinet managment revlimid
--- NOTE | 2021-03-09 12:47 | MHC.CM.PN ---
CM spoke with patient's grandtr/HCP who is requesting we tell patient about her 's condition because patient is HCP and would need to make any health decisions for her . CM, nurse and lot associate met with patient in her room and explained her is in ICU, intubated and on a vent. patient verbalizes understanding and is requesting to see him. Agricultural Education Teacher is working on this.
[2021-03-09 15:17] VITALS: BP 136/77; PULSE 62; RESP 20; TEMP 36; O2SAT 99
[2021-03-09 19:16] VITALS: BP 126/61; PULSE 55; RESP 20; TEMP 36.3; O2SAT 94
[2021-03-09] MEDS: Mirtazapine 30 MG TABLET PO (20:20)
[2021-03-09 23:45] VITALS: BP 141/67; PULSE 56; RESP 20; TEMP 36.6; O2SAT 93
[2021-03-10 04:00] VITALS: BP 131/58; PULSE 56; RESP 20; TEMP 36.3; O2SAT 94
[2021-03-10] MEDS: Levothyroxine Sodium 75 MCG TABLET PO (06:06)
[2021-03-10 07:18] VITALS: BP 106/52; PULSE 50; RESP 20; TEMP 35.5; O2SAT 94
[2021-03-10] MEDS: dexAMETHasone sod phosphate 4 MG/ML VIAL 6 MG IVPUSH (08:59)
[2021-03-10] MEDS: calcitrioL 0.25 MCG CAPSULE 0.5 MCG PO (08:59)
[2021-03-10] MEDS: Sodium Bicarbonate 650 MG TABLET PO ×2 (08:59→20:32)
[2021-03-10] MEDS: FLUoxetine HCl 20 MG CAPSULE PO (09:00)
[2021-03-10] MEDS: Aspirin 81 MG TAB.CHEW PO (09:00)
--- NOTE | 2021-03-10 10:04 | P.PNIM_ITS ---
Subjective Subjective Date of Service: 03/10/21 Interval History: some improvement, still sob and desaturating on exertion Cardiovascular Cardiovascular: Reports no additional cardiovascular complaints Gastrointestinal Gastrointestinal: Reports no additional gastrointestinal complaints Physical Exam Vital Signs: Vital Signs: Last Vital Signs Temp 96 F L 03/10/21 07:18 Pulse 50 03/10/21 07:18 Resp 20 03/10/21 07:18 BP 106/52 L 03/10/21 07:18 Pulse Ox 94 03/10/21 07:18 Body Mass Index 25.7 General: AO X 3, ill appearing Resp: Crackles CVS: S1,S2,RRR GI: soft, non tender, non distended Neuro: motor grossly intact Psych: appropriate affect Objective Data Current Medications Generic Name Dose Route Start Last Admin Trade Name Robinq PRN Reason Stop Dose Admin Acetaminophen 650 mg 03/04/21 22:42 03/07/21 07:48 Acetaminophen 325 Mg Tablet PO 650 mg Q6H PRN Administration Pain, Mild (Pain Scale 1-3) Aspirin 81 mg 03/05/21 09:00 03/10/21 09:00 Aspirin 81 Mg Tab.Chew PO 81 mg DAILY KULDEEP Administration Calcium Carbonate 1,000 mg 03/06/21 15:00 03/10/21 08:59 Calcium Carbonate 500 Mg Tablet PO 1,000 mg TID KULDEEP Administration Dexamethasone Sodium Phosphate 6 mg 03/08/21 10:55 03/10/21 08:59 Dexamethasone Sod Phosphate 4 Mg/Ml Vial IVPUSH 6 mg DAILY KULDEEP Administration Docusate Sodium 100 mg 03/04/21 22:42 Docusate Sodium 100 Mg Capsule PO DAILY PRN Constipation Fluoxetine HCl 20 mg 03/05/21 09:00 03/10/21 09:00 Fluoxetine Hcl 20 Mg Capsule PO 20 mg DAILY KULDEEP Administration Heparin Sodium (Porcine) 5,000 unit 03/04/21 22:42 03/09/21 22:08 Heparin Sodium,Porcine 5,000 Unit/Ml Vial SUBCUT 5,000 unit Q12H KULDEEP Administration Levothyroxine Sodium 75 mcg 03/05/21 06:00 03/10/21 06:06 Levothyroxine Sodium 75 Mcg Tablet PO 75 mcg DAILY@0600 KULDEEP Administration Mirtazapine 30 mg 03/05/21 21:00 03/09/21 20:20 Mirtazapine 30 Mg Tablet PO 30 mg BEDTIME KULDEEP Administration Non-Formulary Medication 10 mg 03/05/21 09:00 Lenalidomide [Revlimid] PO DAILY [facility] Ondansetron HCl 4 mg 03/04/21 22:42 Ondansetron Hcl 4 Mg/2 Ml Vial IVPUSH Q8H PRN Nausea and Vomiting Sodium Bicarbonate 650 mg 03/06/21 09:40 03/10/21 08:59 Sodium Bicarbonate 650 Mg Tablet PO 650 mg BID KULDEEP Administration Sodium Chloride 3 ml 03/05/21 00:00 03/09/21 22:15 0.9 % Sodium Chloride Flush 3 Ml Syringe IVFLUSH 3 ml QSHIFT KULDEEP Administration Labs CBC & Chem 7: 03/09/21 06:30 03/09/21 06:44 Microbiology Microbiology Results: Microbiology 03/07/21 08:16 Blood - Venous Blood Culture - Preliminary No growth after 48 hours. 03/07/21 08:16 Blood - Venous Blood Culture - Preliminary No growth after 48 hours. 03/07/21 Unknown Urine clean catch - Clean Catch Midstream Urine Culture - Final Citrobacter farmeri Assessment and Plan (1) MARII (acute kidney injury): Status: Acute (2) Pneumonia due to 2019 novel coronavirus: Status: Acute (3) Encephalopathy: Status: Acute (4) Nausea vomiting and diarrhea: Status: Acute Assessment and Plan: 75-year-old female who presents to the hospital brought in by her family with complaints of encephalopathy as well as low oral intake nausea vomiting and diarrhea. Toxic metabolic encephalopathy and acute hypoxic respiratory failure secondary to COVID, kidney injury, electrolyte imbalance decadron day 3/10 wean o2 as tolerated encephalopathy resolved MARII resolved hypocalcemia improved, continue oral calcium, calcitriol MM outpatient management revlimid
[2021-03-10] MEDS: Heparin Sodium,Porcine 5,000 UNIT/ML VIAL 5000 UNIT SUBCUT ×2 (12:57→23:28)
[2021-03-10 15:06] VITALS: BP 140/64; PULSE 51; RESP 20; TEMP 36; O2SAT 98
[2021-03-10] MEDS: 0.9 % Sodium Chloride Flush 3 ML SYRINGE IVFLUSH ×2 (16:11→20:32)
[2021-03-10 19:16] VITALS: BP 142/69; PULSE 50; RESP 20; TEMP 36; O2SAT 97
[2021-03-10] MEDS: Mirtazapine 30 MG TABLET PO (20:32)
[2021-03-10 23:31] VITALS: BP 132/58; PULSE 46; RESP 18; TEMP 36.2; O2SAT 94
[2021-03-11] VITALS (7 sets, daily range): BP systolic 101–145; BP diastolic 50–78; PULSE 48–56; RESP 18–20; TEMP 36.2–37.1; O2SAT 94–99
[2021-03-11] MEDS: Levothyroxine Sodium 75 MCG TABLET PO (05:39)
[2021-03-11] MEDS: Acetaminophen 325 MG TABLET 650 MG PO (05:47)
[2021-03-11] MEDS: Sodium Bicarbonate 650 MG TABLET PO ×2 (08:40→20:53)
[2021-03-11] MEDS: Aspirin 81 MG TAB.CHEW PO (08:40)
[2021-03-11] MEDS: dexAMETHasone sod phosphate 4 MG/ML VIAL 6 MG IVPUSH (08:40)
[2021-03-11] MEDS: FLUoxetine HCl 20 MG CAPSULE PO (08:40)
[2021-03-11] MEDS: 0.9 % Sodium Chloride Flush 3 ML SYRINGE IVFLUSH ×2 (08:41→16:46)
--- NOTE | 2021-03-11 10:15 | HO.PM.IMPN ---
Subjective Subjective Date of Service: 03/11/21 Interval History: better than admission but still feeling bad, sob Cardiovascular Cardiovascular: Reports no additional cardiovascular complaints Gastrointestinal Gastrointestinal: Reports no additional gastrointestinal complaints Physical Exam Vital Signs: Vital Signs: Last Vital Signs Temp 98.8 F 03/11/21 07:46 Pulse 50 03/11/21 07:46 Resp 18 03/11/21 07:46 BP 101/50 L 03/11/21 07:46 Pulse Ox 96 03/11/21 07:46 Body Mass Index 25.7 General: AO X 3, ill appearing Resp: Crackles CVS: S1,S2,RRR GI: soft, non tender, non distended Neuro: motor grossly intact Psych: appropriate affect Objective Data Current Medications Generic Name Dose Route Start Last Admin Trade Name Robinq PRN Reason Stop Dose Admin Acetaminophen 650 mg 03/04/21 22:42 03/11/21 05:47 Acetaminophen 325 Mg Tablet PO 650 mg Q6H PRN Administration Pain, Mild (Pain Scale 1-3) Aspirin 81 mg 03/05/21 09:00 03/11/21 08:40 Aspirin 81 Mg Tab.Chew PO 81 mg DAILY KULDEEP Administration Calcium Carbonate 1,000 mg 03/06/21 15:00 03/11/21 08:40 Calcium Carbonate 500 Mg Tablet PO 1,000 mg TID KULDEEP Administration Dexamethasone Sodium Phosphate 6 mg 03/08/21 10:55 03/11/21 08:40 Dexamethasone Sod Phosphate 4 Mg/Ml Vial IVPUSH 6 mg DAILY KULDEEP Administration Docusate Sodium 100 mg 03/04/21 22:42 Docusate Sodium 100 Mg Capsule PO DAILY PRN Constipation Fluoxetine HCl 20 mg 03/05/21 09:00 03/11/21 08:40 Fluoxetine Hcl 20 Mg Capsule PO 20 mg DAILY KULDEEP Administration Heparin Sodium (Porcine) 5,000 unit 03/04/21 22:42 03/10/21 23:28 Heparin Sodium,Porcine 5,000 Unit/Ml Vial SUBCUT 5,000 unit Q12H KULDEEP Administration Levothyroxine Sodium 75 mcg 03/05/21 06:00 03/11/21 05:39 Levothyroxine Sodium 75 Mcg Tablet PO 75 mcg DAILY@0600 KULDEEP Administration Mirtazapine 30 mg 03/05/21 21:00 03/10/21 20:32 Mirtazapine 30 Mg Tablet PO 30 mg BEDTIME KULDEEP Administration Non-Formulary Medication 10 mg 03/05/21 09:00 Lenalidomide [Revlimid] PO DAILY [facility] Ondansetron HCl 4 mg 03/04/21 22:42 Ondansetron Hcl 4 Mg/2 Ml Vial IVPUSH Q8H PRN Nausea and Vomiting Sodium Bicarbonate 650 mg 03/06/21 09:40 03/11/21 08:40 Sodium Bicarbonate 650 Mg Tablet PO 650 mg BID KULDEEP Administration Sodium Chloride 3 ml 03/05/21 00:00 03/11/21 08:41 0.9 % Sodium Chloride Flush 3 Ml Syringe IVFLUSH 3 ml QSHIFT KULDEEP Administration Labs CBC & Chem 7: 03/09/21 06:30 03/09/21 06:44 Microbiology Microbiology Results: Microbiology 03/07/21 08:16 Blood - Venous Blood Culture - Preliminary No growth after 48 hours. 03/07/21 08:16 Blood - Venous Blood Culture - Preliminary No growth after 48 hours. 03/07/21 Unknown Urine clean catch - Clean Catch Midstream Urine Culture - Final Citrobacter farmeri Assessment and Plan (1) MARII (acute kidney injury): Status: Acute (2) Pneumonia due to 2019 novel coronavirus: Status: Acute (3) Encephalopathy: Status: Acute (4) Nausea vomiting and diarrhea: Status: Acute Assessment and Plan: 75-year-old female who presents to the hospital brought in by her family with complaints of encephalopathy as well as low oral intake nausea vomiting and diarrhea. Toxic metabolic encephalopathy and acute hypoxic respiratory failure secondary to COVID, kidney injury, electrolyte imbalance decadron day 410 wean o2 as tolerated encephalopathy resolved will check prognostic labs tomorrow MARII resolved hypocalcemia improved, continue oral calcium, calcitriol MM outpatient management revlimid
[2021-03-11] MEDS: Heparin Sodium,Porcine 5,000 UNIT/ML VIAL 5000 UNIT SUBCUT ×2 (12:23→20:53)
--- NOTE | 2021-03-11 15:03 | PM.PNNEP ---
Subjective Subjective Date of Service: 03/11/21 Interval history: no acute events Cr improved Ca, Phos, hgb stable. Physical Exam Vital Signs: Vital Signs: Last Vital Signs Temp 98.7 F 03/11/21 11:49 Pulse 48 L 03/11/21 12:37 Resp 20 03/11/21 11:49 BP 145/78 H 03/11/21 12:37 Pulse Ox 98 03/11/21 12:37 Body Mass Index 25.7 Const: General: cooperative and no acute distress Nutritional Appearance: average body habitus Orientation/consciousness: oriented to person HENMT: Head: Yes normal to inspection Ears: hearing grossly normal bilaterally Eyes: General: appearance normal, both eyes and all related structures Visual Clemons: normal visual clemons by confrontation EOM: EOMs intact bilaterally Neck: Neck: Yes normal visual inspection, No positive Brudzinski's sign, No positive Kernig's sign and No tender Thyroid: Thyroid normal Chest: Chest palpation & inspection: normal inspection of the chest Resp: Effort & Inspection: normal respiratory effort Auscultation: clear to auscultation bilaterally Cardio: Jugular venous distension: no JVD Rate: regular rate Rhythm: regular rhythm Heart sounds: S1 normal heart sound present and S2 normal heart sound present GI: Inspection: Yes normal to inspection Palpation (GI): Soft to palpation Percussion: Yes normal to percussion Auscultation: normal bowel sounds : General: Yes no CVA tenderness Back/Spine/Pelvis: Back: no CVA tenderness Skin: General skin exam: no rashes or lesions noted Neuro: General: oriented to person Cognition (Neuro): normal cognition Extrem: General: Yes normal to inspection and Yes no pedal edema Objective Data Labs CBC & Chem 7: 03/09/21 06:30 03/09/21 06:44 Microbiology Microbiology Results: Microbiology 03/07/21 08:16 Blood - Venous Blood Culture - Preliminary No growth after 48 hours. 03/07/21 08:16 Blood - Venous Blood Culture - Preliminary No growth after 48 hours. 03/07/21 Unknown Urine clean catch - Clean Catch Midstream Urine Culture - Final Citrobacter farmeri Assessment & Plan Assessment and plan (1) MARII (acute kidney injury): Status: Acute (2) Pneumonia due to 2019 novel coronavirus: Status: Acute (3) Encephalopathy: Status: Acute (4) Nausea vomiting and diarrhea: Status: Acute Assessment and Plan: 75-year-old female who presents to the hospital brought in by her family with complaints of encephalopathy as well as low oral intake nausea vomiting and diarrhea. MARII resolved with IVF Calcium improving with ca-Carbonate May benefit from Cholecalciferol 1000u daily no further calcitriol monitor Phos, maximize nutrition Time Spent With Patient Time: Total time spent is greater than 50% in coordination of care (as documented) at patient's floor/unit and/or counseling patient:
[2021-03-11] MEDS: Mirtazapine 30 MG TABLET PO (20:52)
[2021-03-12] VITALS: BP 148/67; PULSE 49; RESP 18; TEMP 36.6; O2SAT 94
[2021-03-12 02:00] VITALS: O2SAT 89
[2021-03-12] MEDS: 0.9 % Sodium Chloride Flush 3 ML SYRINGE IVFLUSH ×5 (02:13→21:29)
[2021-03-12] MEDS: diphenhydrAMINE HCL 25 MG TABLET PO (02:13)
[2021-03-12 04:00] VITALS: BP 114/57; PULSE 58; RESP 18; TEMP 36.6; O2SAT 91
--- NOTE | 2021-03-12 04:49 | PC.NURSE ---
Patient received call from ICU PA and her son around 1900 last night. Pt has been restless and stated that she is worried and nervous about her . The patient has not slept tonight despite 25mg PO Benadryl.
[2021-03-12] MEDS: Levothyroxine Sodium 75 MCG TABLET PO (05:57)
[2021-03-12 07:22] LABS: Anion Gap 13 (12-20); Blood Urea Nitrogen 30 mg/dL (9-16); C Reactive Protein 12.75 mg/dL (< or = 0.50); Calcium 7.8 mg/dL (8.4-10.2); Carbon Dioxide 23 mmol/L (22-29); Chloride 110 mmol/L (96-108); Creatinine Clr Calc Pharmacy 58.9; Estimated Glomerular Filt Rate > 60; Glucose Fasting 85 mg/dL (60-99); Potassium 3.7 mmol/L (3.3-5.1); Sodium 142 mmol/L (135-145)
[2021-03-12 07:29] VITALS: BP 121/59; PULSE 50; RESP 18; TEMP 36.7; O2SAT 98
[2021-03-12 07:40] LABS: D Dimer 1928 NG/ML
[2021-03-12] MEDS: Aspirin 81 MG TAB.CHEW PO (08:58)
[2021-03-12] MEDS: dexAMETHasone sod phosphate 4 MG/ML VIAL 6 MG IVPUSH (08:58)
[2021-03-12] MEDS: Sodium Bicarbonate 650 MG TABLET PO (08:59)
[2021-03-12] MEDS: FLUoxetine HCl 20 MG CAPSULE PO (08:59)
--- NOTE | 2021-03-12 10:25 | HO.PM.IMPN ---
Subjective Subjective Date of Service: 03/12/21 Interval History: still feeling poorly Cardiovascular Cardiovascular: Reports no additional cardiovascular complaints Gastrointestinal Gastrointestinal: Reports no additional gastrointestinal complaints Physical Exam Vital Signs: Vital Signs: Last Vital Signs Temp 98.0 F 03/12/21 07:29 Pulse 50 03/12/21 07:29 Resp 18 03/12/21 07:29 BP 121/59 L 03/12/21 07:29 Pulse Ox 98 03/12/21 07:29 Body Mass Index 25.7 General: AO X 3, ill appearing Resp: Crackles CVS: S1,S2,RRR GI: soft, non tender, non distended Neuro: motor grossly intact Psych: appropriate affect Objective Data Current Medications Generic Name Dose Route Start Last Admin Trade Name Freq PRN Reason Stop Dose Admin Acetaminophen 650 mg 03/04/21 22:42 03/11/21 05:47 Acetaminophen 325 Mg Tablet PO 650 mg Q6H PRN Administration Pain, Mild (Pain Scale 1-3) Aspirin 81 mg 03/05/21 09:00 03/12/21 08:58 Aspirin 81 Mg Tab.Chew PO 81 mg DAILY KULDEEP Administration Calcium Carbonate 1,000 mg 03/06/21 15:00 03/12/21 08:59 Calcium Carbonate 500 Mg Tablet PO 1,000 mg TID KULDEEP Administration Dexamethasone Sodium Phosphate 6 mg 03/08/21 10:55 03/12/21 08:58 Dexamethasone Sod Phosphate 4 Mg/Ml Vial IVPUSH 6 mg DAILY KULDEEP Administration Docusate Sodium 100 mg 03/04/21 22:42 Docusate Sodium 100 Mg Capsule PO DAILY PRN Constipation Fluoxetine HCl 20 mg 03/05/21 09:00 03/12/21 08:59 Fluoxetine Hcl 20 Mg Capsule PO 20 mg DAILY KULDEEP Administration Heparin Sodium (Porcine) 5,000 unit 03/04/21 22:42 03/11/21 20:53 Heparin Sodium,Porcine 5,000 Unit/Ml Vial SUBCUT 5,000 unit Q12H KULDEEP Administration Levothyroxine Sodium 75 mcg 03/05/21 06:00 03/12/21 05:57 Levothyroxine Sodium 75 Mcg Tablet PO 75 mcg DAILY@0600 KULDEEP Administration Mirtazapine 30 mg 03/05/21 21:00 03/11/21 20:52 Mirtazapine 30 Mg Tablet PO 30 mg BEDTIME KULDEEP Administration Non-Formulary Medication 10 mg 03/05/21 09:00 Lenalidomide [Revlimid] PO DAILY KULDEEP Ondansetron HCl 4 mg 03/04/21 22:42 Ondansetron Hcl 4 Mg/2 Ml Vial IVPUSH Q8H PRN Nausea and Vomiting Sodium Bicarbonate 650 mg 03/06/21 09:40 03/12/21 08:59 Sodium Bicarbonate 650 Mg Tablet PO 650 mg BID KULDEEP Administration Sodium Chloride 3 ml 03/05/21 00:00 03/12/21 08:58 0.9 % Sodium Chloride Flush 3 Ml Syringe IVFLUSH 3 ml QSHIFT KULDEEP Administration Labs CBC & Chem 7: 03/09/21 06:30 03/12/21 06:25 Microbiology Microbiology Results: Microbiology 03/07/21 08:16 Blood - Venous Blood Culture - Preliminary No growth after 48 hours. 03/07/21 08:16 Blood - Venous Blood Culture - Preliminary No growth after 48 hours. 03/07/21 Unknown Urine clean catch - Clean Catch Midstream Urine Culture - Final Citrobacter farmeri Assessment and Plan (1) MARII (acute kidney injury): Status: Acute (2) Pneumonia due to 2019 novel coronavirus: Status: Acute (3) Encephalopathy: Status: Acute (4) Nausea vomiting and diarrhea: Status: Acute Assessment and Plan: 75-year-old female who presents to the hospital brought in by her family with complaints of encephalopathy as well as low oral intake nausea vomiting and diarrhea. Toxic metabolic encephalopathy and acute hypoxic respiratory failure secondary to COVID, kidney injury, electrolyte imbalance decadron day 5 wean o2 as tolerated, still requiring some o2 and symptomatic, so will continue to monitor inpatient encephalopathy resolved ddimer and crp slightly improved MARII resolved hypocalcemia improved, continue oral calcium, calcitriol MM outpatient management revlimid
[2021-03-12 12:00] VITALS: BP 125/66; PULSE 52; RESP 20; O2SAT 96
[2021-03-12] MEDS: Heparin Sodium,Porcine 5,000 UNIT/ML VIAL 5000 UNIT SUBCUT ×2 (12:11→21:18)
--- NOTE | 2021-03-12 12:30 | PM.PNNEP ---
Subjective Subjective Date of Service: 03/12/21 Interval history: Cr stable calcium stable Patient feels weak. Denies dyspnea Physical Exam Vital Signs: Vital Signs: Last Vital Signs Temp 98.0 F 03/12/21 07:29 Pulse 50 03/12/21 07:29 Resp 18 03/12/21 07:29 BP 121/59 L 03/12/21 07:29 Pulse Ox 98 03/12/21 07:29 Body Mass Index 25.7 Const: General: cooperative and no acute distress Nutritional Appearance: average body habitus Orientation/consciousness: oriented to person HENMT: Head: Yes normal to inspection Ears: hearing grossly normal bilaterally Eyes: General: appearance normal, both eyes and all related structures Visual Clemons: normal visual clemons by confrontation EOM: EOMs intact bilaterally Neck: Neck: Yes normal visual inspection, No positive Brudzinski's sign, No positive Kernig's sign and No tender Thyroid: Thyroid normal Chest: Chest palpation & inspection: normal inspection of the chest Resp: Effort & Inspection: normal respiratory effort Auscultation: clear to auscultation bilaterally Cardio: Jugular venous distension: no JVD Rate: regular rate Rhythm: regular rhythm Heart sounds: S1 normal heart sound present and S2 normal heart sound present GI: Inspection: Yes normal to inspection Palpation (GI): Soft to palpation Percussion: Yes normal to percussion Auscultation: normal bowel sounds : General: Yes no CVA tenderness Back/Spine/Pelvis: Back: no CVA tenderness Skin: General skin exam: no rashes or lesions noted Neuro: General: oriented to person Cognition (Neuro): normal cognition Extrem: General: Yes normal to inspection and Yes no pedal edema Objective Data Labs CBC & Chem 7: 03/09/21 06:30 03/12/21 06:25 Labs: Laboratory Results - last 24 hr 03/12/21 03/12/21 06:25 06:25 D-Dimer 1928 Sodium 142 Potassium 3.7 Chloride 110 H Carbon Dioxide 23 Anion Gap 13 BUN 30 H Creatinine 0.77 Estim Creat Clear Calc 58.9 Estimated GFR > 60 Fasting Glucose 85 Calcium 7.8 L D C-Reactive Protein 12.75 H Microbiology Microbiology Results: Microbiology 03/07/21 08:16 Blood - Venous Blood Culture - Final No growth after 5 days. 03/07/21 08:16 Blood - Venous Blood Culture - Final No growth after 5 days. 03/07/21 Unknown Urine clean catch - Clean Catch Midstream Urine Culture - Final Citrobacter farmeri Assessment & Plan Assessment and plan (1) MARII (acute kidney injury): Status: Acute (2) Pneumonia due to 2019 novel coronavirus: Status: Acute (3) Encephalopathy: Status: Acute (4) Nausea vomiting and diarrhea: Status: Acute Assessment and Plan: 75-year-old female who presents to the hospital brought in by her family with complaints of encephalopathy as well as low oral intake nausea vomiting and diarrhea. MARII resolved with IVF ok to now D/C NaBicarbonate tablets Calcium improving with ca-Carbonate Can consider Cholecalciferol 1000u daily Not on any further calcitriol. monitor Phos, maximize nutrition Time Spent With Patient Time: Total time spent is greater than 50% in coordination of care (as documented) at patient's floor/unit and/or counseling patient:
[2021-03-12 20:00] VITALS: BP 125/57; PULSE 56; RESP 20; TEMP 36.1; O2SAT 92
[2021-03-12] MEDS: Mirtazapine 30 MG TABLET PO (21:18)
[2021-03-13] VITALS (7 sets, daily range): BP systolic 114–159; BP diastolic 51–76; PULSE 47–80; RESP 18–21; TEMP 36.1–36.6; O2SAT 94–100
[2021-03-13] MEDS: Acetaminophen 325 MG TABLET 650 MG PO (01:29)
[2021-03-13] MEDS: Levothyroxine Sodium 75 MCG TABLET PO (05:22)
[2021-03-13] MEDS: Aspirin 81 MG TAB.CHEW PO (08:06)
[2021-03-13] MEDS: FLUoxetine HCl 20 MG CAPSULE PO (08:06)
[2021-03-13] MEDS: dexAMETHasone sod phosphate 4 MG/ML VIAL 6 MG IVPUSH (08:06)
--- NOTE | 2021-03-13 09:54 | MHC.CM.PN ---
CM CONTACTED PTS GRAND DAUGHTER/HCP, ADRIANA ([phone]) TO DISCUSS PTS DC PLANS. CM INFORMED HER THAT PT IS RECOMMENDING STR AND THAT THE PATIENT WOULD LIKELY BE CLEARED TODAY. SHE REPORTS SHE THINKS THEY WOULD PREFER THE PT GO TO [facility] IN [place] BUT SHE WANTS TO TALK TO THE PT/FAMILY FIRST BEFORE MAKING A DECISION. CM WILL CONTACT [facility] TO DETERMINE BED STATUS. ADRIANA WILL CALL T/W BACK ONCE SHE HAS PT/FAMILY PREFERENCES.
[2021-03-13] MEDS: Heparin Sodium,Porcine 5,000 UNIT/ML VIAL 5000 UNIT SUBCUT ×2 (11:31→20:45)
--- NOTE | 2021-03-13 11:54 | P.PNIM_ITS ---
Subjective Subjective Date of Service: 03/13/21 Interval History: improved, but very weak Cardiovascular Cardiovascular: Reports no additional cardiovascular complaints Respiratory Respiratory: Reports no additional respiratory complaints Physical Exam Vital Signs: Vital Signs: Last Vital Signs Temp 97.2 F 03/13/21 11:15 Pulse 57 03/13/21 11:15 Resp 18 03/13/21 11:15 BP 148/76 H 03/13/21 11:15 Pulse Ox 100 03/13/21 11:15 Body Mass Index 25.7 General: AO X 3, frail Resp: CTA bilateral CVS: S1,S2,RRR GI: soft, non tender, non distended Neuro: motor grossly intact Psych: appropriate affect Objective Data Current Medications Generic Name Dose Route Start Last Admin Trade Name Freq PRN Reason Stop Dose Admin Acetaminophen 650 mg 03/04/21 22:42 03/13/21 01:29 Acetaminophen 325 Mg Tablet PO 650 mg Q6H PRN Administration Pain, Mild (Pain Scale 1-3) Aspirin 81 mg 03/05/21 09:00 03/13/21 08:06 Aspirin 81 Mg Tab.Chew PO 81 mg DAILY KULDEEP Administration Calcium Carbonate 1,000 mg 03/06/21 15:00 03/13/21 08:05 Calcium Carbonate 500 Mg Tablet PO 1,000 mg TID KULDEEP Administration Dexamethasone Sodium Phosphate 6 mg 03/08/21 10:55 03/13/21 08:06 Dexamethasone Sod Phosphate 4 Mg/Ml Vial IVPUSH 6 mg DAILY KULDEEP Administration Docusate Sodium 100 mg 03/04/21 22:42 Docusate Sodium 100 Mg Capsule PO DAILY PRN Constipation Fluoxetine HCl 20 mg 03/05/21 09:00 03/13/21 08:06 Fluoxetine Hcl 20 Mg Capsule PO 20 mg DAILY KULDEEP Administration Heparin Sodium (Porcine) 5,000 unit 03/04/21 22:42 03/13/21 11:31 Heparin Sodium,Porcine 5,000 Unit/Ml Vial SUBCUT 5,000 unit Q12H KULDEEP Administration Levothyroxine Sodium 75 mcg 03/05/21 06:00 03/13/21 05:22 Levothyroxine Sodium 75 Mcg Tablet PO 75 mcg DAILY@0600 KULDEEP Administration Mirtazapine 30 mg 03/05/21 21:00 03/12/21 21:18 Mirtazapine 30 Mg Tablet PO 30 mg BEDTIME KULDEEP Administration Non-Formulary Medication 10 mg 03/05/21 09:00 Lenalidomide [Revlimid] PO DAILY [facility] Ondansetron HCl 4 mg 03/04/21 22:42 Ondansetron Hcl 4 Mg/2 Ml Vial IVPUSH Q8H PRN Nausea and Vomiting Sodium Chloride 3 ml 03/05/21 00:00 03/12/21 21:29 0.9 % Sodium Chloride Flush 3 Ml Syringe IVFLUSH 3 ml QSHIFT KULDEEP Administration Labs CBC & Chem 7: 03/09/21 06:30 03/12/21 06:25 Microbiology Microbiology Results: Microbiology 03/07/21 08:16 Blood - Venous Blood Culture - Final No growth after 5 days. 03/07/21 08:16 Blood - Venous Blood Culture - Final No growth after 5 days. 03/07/21 Unknown Urine clean catch - Clean Catch Midstream Urine Culture - Final Citrobacter farmeri Assessment and Plan (1) MARII (acute kidney injury): Status: Acute (2) Pneumonia due to 2019 novel coronavirus: Status: Acute (3) Encephalopathy: Status: Acute (4) Nausea vomiting and diarrhea: Status: Acute Assessment and Plan: 75-year-old female who presents to the hospital brought in by her family with complaints of encephalopathy as well as low oral intake nausea vomiting and diarrhea. Toxic metabolic encephalopathy and acute hypoxic respiratory failure secondary to COVID, kidney injury, electrolyte imbalance decadron day 05/04 encephalopathy resolved o2 sats significantly improved, can continue recovery at SNF when available MARII resolved hypocalcemia improved, continue oral calcium, calcitriol MM outpatient management revlimid
--- NOTE | 2021-03-13 16:22 | MHC.CM.PN ---
KENRICK SPOKE TO PT / FAMILY SEVERAL TIMES THROUGHOUT THE DAY. THEY WANTED THE THE PT TO GO TO [facility] HOWEVER THEY WERE UNABLE TO PROVIDE THE PTS COVID RESULTS FROM HER TEST THAT WAS DONE AT [facility]. KENRICK ALSO WAS UNABLE TO REACH [facility] FOR RECORDS. [facility] WAS OFFERING A BED WITHOUT THOSE RESULTS SO FAMILY ACCEPTED AND [facility] INDICATED THEY WOULD HAVE A BED AT 11AM TOMORROW AND WOULD SUBMIT FOR AUTH. AT 1624, KENRICK RECEIVED A CALL FROM PTS G-DTR, ADRIANA, INDICATING THEY HAVE FOUND THE COVID RESULTS DOCUMENT AND WOULD FORWARD THE EMAIL TO CM. THEY WOULD LIKE PT TO FO TO [facility] PENDING AUTH. CM WILL FORWARD TEST RESULTS TO [facility] TOMORROW AND ASK THAT THEY GO FOR AUTH.
[2021-03-13] MEDS: 0.9 % Sodium Chloride Flush 3 ML SYRINGE IVFLUSH ×2 (16:42→23:29)
[2021-03-13] MEDS: Mirtazapine 30 MG TABLET PO (20:44)
[2021-03-14 03:47] VITALS: BP 127/62; PULSE 54; RESP 20; TEMP 36.9; O2SAT 98
[2021-03-14] MEDS: Levothyroxine Sodium 75 MCG TABLET PO (06:20)
[2021-03-14 08:00] VITALS: BP 140/65; PULSE 61; RESP 20; TEMP 36.9; O2SAT 100
--- NOTE | 2021-03-14 08:40 | MHC.CM.PN ---
DP Spoke w Pts Tahir,Whitney this AM. 1st choice for STR is [facility]. [facility] requiring Covid test documentation prior to seeking auth. Whitney sent an email to [facility] requesting documentation of results. [facility] is also offering a bed. If documentation of covid result is not available, [facility] is second choice. Whitney is agreeable to [facility] If [facility] does not offer a bed. CM will follow.
[2021-03-14] MEDS: 0.9 % Sodium Chloride Flush 3 ML SYRINGE IVFLUSH (09:01)
[2021-03-14] MEDS: Aspirin 81 MG TAB.CHEW PO (09:01)
[2021-03-14] MEDS: Heparin Sodium,Porcine 5,000 UNIT/ML VIAL 5000 UNIT SUBCUT (09:01)
[2021-03-14] MEDS: FLUoxetine HCl 20 MG CAPSULE PO (09:01)
[2021-03-14] MEDS: dexAMETHasone sod phosphate 4 MG/ML VIAL 6 MG IVPUSH (09:01)
[2021-03-14 11:07] LABS: COVID-19 Test Positive (Negative)
[2021-03-14 12:00] VITALS: BP 136/64; PULSE 63; RESP 20; TEMP 37; O2SAT 94
--- NOTE | 2021-03-14 13:01 | PM.DS ---
DS: Providers Provider Date of Service: 03/14/21 Date of admission: 03/04/21 21:29 Primary care physician: Erika Morris MD Consults: 03/05/21 10:33 Consult to Nephrology Routine Consulting Provider: Thong Cisneros Reason for consultation: MARII for eval. DS: Diagnosis Discharge Diagnosis (1) MARII (acute kidney injury): Status: Acute (2) Pneumonia due to 2019 novel coronavirus: Status: Acute (3) Encephalopathy: Status: Acute (4) Nausea vomiting and diarrhea: Status: Acute (5) Hypomagnesemia: Status: Acute (6) Hypocalcemia: Status: Acute (7) Acute respiratory failure with hypoxia: Status: Acute DS: Medications Discharge Medications Home Medications: Home Medications Medication Instructions Recorded Confirmed levothyroxine 75 mcg PO DAILY 10/27/20 03/04/21 aspirin 81 mg PO DAILY 12/16/20 03/04/21 fluoxetine 20 mg PO QAM 12/16/20 03/04/21 mirtazapine 30 mg PO BEDTIME 12/16/20 03/04/21 calcium carbonate 600 mg PO TID 03/04/21 03/04/21 Previous Rx's Medication Instructions Recorded acyclovir 400 mg PO DAILY@1200 #90 tab 01/12/21 Revlimid 10 mg PO DAILY #30 cap 03/09/21 dexamethasone [Decadron] 6 mg PO DAILY #4 tab 03/14/21 DS: Summary Hospital Course Hospital Course: Patient was admitted for acute hypoxic respiratory failure secondary to COVID pneumonia. She was given IV Decadron and symptoms significantly improved. Patient's shortness of breath resolved and she was able to be weaned off oxygen. Course was complicated by acute kidney injury with a creatinine of 2.36 on admission. This resolved and is a 0.77 on discharge. MARII was felt to be due to ATN from low blood pressure, hypoperfusion and COVID. Patient was also noted to have hypocalcemia post denosumab, this also resolved with calcium and vitamin-D supplementation. Patient is debilitated after hospitalization and will be discharged to [facility] facility for short-term rehab. Time Spent with Patient Time attestation: Total time spent providing and/or coordinating discharge services: Discharge coordination time: Greater than 30 minutes Physical Exam Vital Signs: Vital Signs: Last Vital Signs Temp 98.6 F 03/14/21 12:00 Pulse 63 03/14/21 12:00 Resp 20 03/14/21 12:00 BP 136/64 03/14/21 12:00 Pulse Ox 94 03/14/21 12:00 Body Mass Index 25.7 General: AO X 3, no acute distress Resp: diminsihed CVS: S1,S2,RRR GI: soft, non tender, non distended Neuro: motor grossly weak Psych: appropriate affect DS: Data Data Completed and Pending Labs on day of discharge: Laboratory Results - last 24 hr 03/14/21 10:41 COVID-19 ([facility]IGIDA) Positive A COVID-19 Clin Com See Note Discharge Plan Discharge Patient Disposition: Xfer SNF Discharge Diagnosis: covid Referrals: Erika Morris MD [Primary Care Provider] - 1 Week Discharge Medications: New dexamethasone [Decadron] 6 mg tablet 6 mg PO DAILY Qty: 4 RF: 0 Continued levothyroxine 75 mcg tablet 75 mcg PO DAILY RF: 0 Revlimid 10 mg capsule 10 mg PO DAILY Qty: 30 RF: 11 mirtazapine 30 mg tablet 30 mg PO BEDTIME RF: 0 aspirin 81 mg tablet,chewable 81 mg PO DAILY RF: 0 fluoxetine 20 mg capsule 20 mg PO QAM RF: 0 acyclovir 400 mg tablet 400 mg PO DAILY@1200 Qty: 90 RF: 4 calcium carbonate 260 mg calcium (648 mg) tablet 600 mg PO TID RF: 0 Discontinued oxycodone 10 mg tablet 10 mg PO Q12H RF: 0 Discharge Orders: Discharge Order (Routine); Ordered 03/14/21 Ordered By: Marcelo Obrien Activity on Discharge: As tolerated Stand Alone Forms: Patient Portal Discharge page Care Plan Goals: recovery Health Concerns: covid Plan of Treatment: 4 more days of decadron Assessment: see above
[2021-03-14 13:19] VITALS: BP 136/64; PULSE 63; O2SAT 94
--- NOTE | 2021-03-14 13:30 | MHC.CM.PN ---
Addendum entered by Kelsie Carvajal 03/14/21 15:50: Whitney the Pts [facility] called. She wanted to review the dc medlist. Her contact info was given to the nurse, Ritu. She stated that she will address. Original Note: DP Female 75 DX Covid MARII Discharge today to [place] via BLS. Discharge information has been provided to the facility.
[2021-03-14] MEDS: Acetaminophen 325 MG TABLET 650 MG PO (14:09)
--- NOTE | 2021-03-29 11:44 | MHC.CM.PN ---
Per discussion with MD at ICU rounds, family has not returned calls regarding plans/goals of care including consent for blood transfusion. ? Employing an ethics committee for assistance with pt continuation of care. 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 Received call from pt's RN - she was able to speak with pts /HCP, Altagracia and her son via phone and interpretor. Altagracia is presently at [facility] for [facility] following her own bout of COVID (d/c'd [place] [facility] [place]). Altagracia would like to see pt before she consents to DRILL PRESS OPERATOR HELPER status. Call placed to [facility]: spoke with Clerk Supervisor to inform him of the situation. D/T policy issues re: COVID and the pt not yet being vaccinated, he will need to obtain permission for Altagracia to leave [facility] for [facility] with the Petroleum Production Engineer and Infectious Disease coordinator. Informed him that pt would be in full PPE at the time of entry to [facility] and that pt is no longer actively infectious. Updated COAL UNLOADER on above: will wait for call back from [facility]. Pt's son will transport her from [facility] to [facility] with portable O2 supplied by [facility] if permission is granted.
== END 2021-03-14 16:16 | disposition skilled nursing facility (03) | DRG 177 ==
LOC: HO.ED 12:10 → HO.IMC 21:39
PROVIDERS: Internal Medicine Hypertension Specialist; Internal Medicine Nephrology; Nurse Practitioner Primary Care; Student in an Organized Health Care Education/Training Program; Admitting Provider Internal Medicine; Emergency Provider Internal Medicine; PCP Internal Medicine; Visit Provider Internal Medicine
DX: U07.1 COVID-19 (principal); N17.0 Acute kidney failure with tubular necrosis; G92 Toxic encephalopathy; J12.82 Pneumonia due to coronavirus disease 2019; C90.00 Multiple myeloma not having achieved remission; E87.2 Acidosis; E83.51 Hypocalcemia; K21.9 Gastro-esophageal reflux disease without esophagitis; F32.9 Major depressive disorder, single episode, unspecified; E03.9 Hypothyroidism, unspecified; Z79.890 Hormone replacement therapy; Z79.899 Other long term (current) drug therapy
CPT/HCPCS: 36415; 70450; 71045; 71250; 74176; 80048; 80053; 80076; 81001; 82040; 82043; 82306; 82728; 83615; 83735; 83880; 83970; 84100; 84145; 84156; 84300; 84484; 85007; 85025; 85027; 85379; 85610; 85730; 86140; 87040; 87086; 87088; 87186; 87635; 93005; 96374; 97110; 97116; 97162; 99285; C1758; J0610; J0696; J1100; J2060; Q0163

== ENCOUNTER 2021-09-01 12:35 | Emergency (ER) | payer MEDICARE, SELFPAY ==
--- NOTE | 2021-09-01 12:59 | ED.WEAKNESS ---
HPI - Weakness General Chief complaint: General Medical Stated complaint: low heart rate Time Seen by Provider: 09/01/21 12:49 Source: patient and family Limitations: no limitations History of Present Illness HPI Narrative: This is a 75-year-old female who complains of feeling weak today. The patient notes that she has had diarrhea 5 or 6 times a day for about a month. She denies abdominal pain. She denies nausea vomiting. She denies fever. She denies urinary symptoms. She denies any chest pain or shortness of breath. She has felt lightheaded at times. She had felt well yesterday except for the diarrhea. She has been taking Imodium without relief Related Data Home Medications Medication Instructions Recorded Confirmed levothyroxine 75 mcg tablet 75 mcg PO DAILY 10/27/20 08/04/21 aspirin 81 mg chewable tablet 81 mg PO DAILY 12/16/20 08/04/21 fluoxetine 20 mg capsule 20 mg PO QAM 12/16/20 08/04/21 mirtazapine 30 mg tablet 30 mg PO BEDTIME 12/16/20 08/04/21 Previous Rx's Medication Instructions Recorded acyclovir 400 mg tablet 400 mg PO DAILY@1200 #90 tab 01/12/21 dexamethasone 6 mg tablet 6 mg PO DAILY #4 tab 03/14/21 (Decadron) calcium carbonate 260 mg calcium 600 mg PO TID #90 tab 04/28/21 (648 mg) tablet calcium carbonate 500 mg (1,250 1 tab PO BID #60 tab 05/02/21 mg)-vitamin D3 200 unit tablet (Calcium 500 + D) lenalidomide 10 mg capsule 10 mg PO DAILY #14 cap 06/02/21 (Revlimid) lenalidomide 10 mg capsule 10 mg PO DAILY #14 cap 08/02/21 (Revlimid) lenalidomide 10 mg capsule 10 mg PO DAILY #14 cap 08/28/21 (Revlimid) Allergies Allergy/AdvReac Type Severity Reaction Status Date / Time No Known Allergies Allergy Verified 12/16/20 11:14 [No Known Allergies*] Review of Systems Review of Systems: Yes all other systems are reviewed and are negative Constitutional: Constitutional: Reports weakness Eyes: Eyes: Reports as per HPI and Reports no additional eye complaints ENT: Reports system reviewed and no additional complaints, except as documented, Reports as per HPI, Denies nasal congestion, Denies nasal discharge and Denies sore throat Cardiovascular: Cardiovascular: Reports as per HPI, Denies chest pain and Denies dyspnea Respiratory: Respiratory: Reports as per HPI, Denies cough and Denies dyspnea Gastrointestinal: Gastrointestinal: Reports as per HPI, Denies abdominal pain, Reports diarrhea and Denies vomiting Genitourinary: Genitourinary: Reports as per HPI, Denies hematuria, Denies urinary frequency and Denies dysuria Musculoskeletal: Musculoskeletal: Reports no additional musculoskeletal complaints and Denies numbness Integumentary/Breasts: Skin/Breast: Reports as per HPI and Denies rash Neurologic: Denies numbness, Denies Sensory deficit (Neuro) and Reports weakness Psychiatric: Psychiatric: Reports no additional psychiatric complaints and Reports as per HPI Endocrine: Endocrine: Reports no additional endocrine complaints and Reports as per HPI Hematologic/Lymphatic: Hematologic/Lymphatic: Reports no additional hematologic/lymphatic complaints, Reports as per HPI and Reports other (No peripheral edema) [facility] Past Medical History Medical History Depression H/O gastroesophageal reflux (GERD) Hx of multiple myeloma Hypothyroidism Surgical History History of bone marrow biopsy History of cholecystectomy Family History Family History Daughter Diabetes Thyroid cancer Social History Social History Household Members: Spouse and Children Household Members Other:: adult son Housing: House Do you presently have visiting nurse or other home services: Yes ( once in a while ) Alcohol intake: never Years Smoked: 20 Second Hand Smoke Exposure: No Advance Directives: Yes Advance Directives on File: Yes Advance Directives Date on File: 03/15/21 service: No Current occupational status: unemployed Physical Exam Vital Signs: Vital Signs: Last Vital Signs Pulse 47 L 09/01/21 14:28 Resp 18 09/01/21 14:28 BP 147/53 H 09/01/21 14:28 Pulse Ox 100 09/01/21 14:28 Body Mass Index 25.2 Const: General: cooperative, no acute distress and alert Orientation/consciousness: patient oriented x3 HENMT: Head: Yes normal to inspection Eyes: General: appearance normal, both eyes and all related structures Eyelids: Yes eyelids normal Conjunctivae: conjunctivae normal Pupils: Equal, round and reactive pupils present Neck: Neck: Yes normal visual inspection and Yes supple Chest: Chest palpation & inspection: normal inspection of the chest Resp: Effort & Inspection: normal respiratory effort Auscultation: clear to auscultation bilaterally Cardio: Rate: regular rate Rhythm: regular rhythm Heart sounds: S1 normal heart sound present, S2 normal heart sound present, no gallops, no murmurs and no rubs GI: Palpation (GI): Soft to palpation, nontender and Other GI palpation findings present (Non-distended) Auscultation: normal bowel sounds Skin: General skin exam: no rashes or lesions noted Neuro: General: patient oriented x3, no focal motor deficits and CN's II-XI intact bilaterally Cranial nerves: Yes Equal, round and reactive pupils present Cognition (Neuro): normal cognition Motor exam (neuro): 5/5 motor strength present throughout Sensory Exam: No Sensory deficit (Neuro) Extrem: General: Yes normal to inspection and Yes no pedal edema Psych: Appearance: grossly normal Affect: normal affect MDM - Weakness MDM Narrative Medical decision making narrative: Patient complained of weakness today, appeared well clinically. Patient is mildly anemic but at baseline. BUN mildly elevated, was hydrated with normal saline 1 L IV, felt better. Calcium mildly low, has had hypercalcemia in the past. Patient denied any urinary symptoms. A urinalysis was ordered initially however it was not obtained by nursing for hours and the patient wished to go home, denies any urinary symptoms such as dysuria a, urinary frequency, urgency. Low suspicion for UTI. Lab Data Attestation: I reviewed the patient's lab results. Result diagrams: 09/01/21 13:04 09/01/21 13:04 Labs: Lab Results 09/01/21 09/01/21 Range/Units 13:04 13:04 WBC 8.7 (4.8-10.8) X10*3/uL RBC 3.62 L (4.20-5.50) X10*6/uL Hgb 10.6 L (12.0-16.0) g/dl Hct 33.0 L (37-47) % MCV 91.2 (80-98) fL MCH 29.3 (27.0-33.0) pg MCHC 32.1 (31.0-35.0) g/dl RDW 16.8 H (11.0-16.0) % Plt Count 230 (160-400) X10*3/uL MPV 10.9 (9.4-12.3) fL Immature Gran % (Auto) 0.2 (0.0-0.4) % Neut % (Auto) 47.4 (45-73) % Lymph % (Auto) 38.5 (20-40) % [place] % (Auto) 9.6 (2-11) % Eos % (Auto) 3.7 (0-4) % Baso % (Auto) 0.6 (0-2) % Lymph # (Auto) 3.3 (1.2-4.9) X10*3/uL [place] # (Auto) 0.8 (0.1-1.2) X10*3/uL Eos # (Auto) 0.3 (0.0-0.4) X10*3/uL Baso # (Auto) 0.1 (0.0-0.2) X10*3/uL Abs Immat Gran (auto) 0.02 (0.00-0.03) X10*3/uL Absolute Neuts (auto) 4.1 (2.0-8.3) X10*3/uL Absolute Nucleated RBC 0.000 (0.0-0.012) X10*3/uL Nucleated RBC % (auto) 0.0 (0.0-0.2) /100WBC Sodium 141 (135-145) mmol/L Potassium 4.0 (3.3-5.1) mmol/L Chloride 111 H (96-108) mmol/L Carbon Dioxide 22 (22-29) mmol/L Anion Gap 12 (12-20) BUN 25 H (9-16) mg/dL Creatinine 1.11 (0.5-1.4) mg/dL Estim Creat Clear Calc TNP Estimated GFR 48 Random Glucose 110 (60-115) mg/dL Calcium 8.1 L (8.4-10.2) mg/dL Magnesium 1.7 (1.6-2.6) mg/dL Total Bilirubin 0.3 (0.0-1.0) mg/dL AST 13 (5-31) U/L ALT 12 (0-31) U/L Alkaline Phosphatase 85 (39-117) U/L Total Protein 6.9 (6.5-8.0) g/dL Albumin 3.6 (3.5-5.0) g/dL ECG Data Attestation: I personally reviewed and interpreted this ECG as follows: Interpretation: Sinus bradycardia with rate of 45. T-wave inversion in lead V1 V3 V4. EKG not scaly change compared to 03/04/2021 Discharge Plan Discharge Clinical Impression: Weakness, Hypocalcemia Patient Disposition: Home, Self-Care Instructions: Weakness (ED) Additional Instructions: Follow-up with primary care physician. Drink plenty of fluids. Return for any new or worsened symptoms. Continue your calcium supplementation Prescriptions: No Action levothyroxine 75 mcg tablet 75 mcg PO DAILY RF: 0 calcium carbonate 260 mg calcium (648 mg) tablet 600 mg PO TID Qty: 90 RF: 4 calcium carbonate-vitamin D3 [Calcium 500 + D] 500 mg(1,250mg) -200 unit Tablet 1 tab PO BID Qty: 60 RF: 4 Revlimid 10 mg capsule 10 mg PO DAILY Qty: 14 RF: 11 Revlimid 10 mg Capsule 10 mg PO DAILY Qty: 14 RF: 11 Revlimid 10 mg Capsule 10 mg PO DAILY Qty: 14 RF: 10 mirtazapine 30 mg tablet 30 mg PO BEDTIME RF: 0 aspirin 81 mg tablet,chewable 81 mg PO DAILY RF: 0 fluoxetine 20 mg capsule 20 mg PO QAM RF: 0 acyclovir 400 mg tablet 400 mg PO DAILY@1200 Qty: 90 RF: 4 dexamethasone [Decadron] 6 mg tablet 6 mg PO DAILY Qty: 4 RF: 0 Interventions: ED Discharge Assessment Last Done: 09/01/21 18:27 Discharge Date/Time: 09/01/21 18:27
[2021-09-01 13:11] LABS: MANUAL DIFF FLAG NO
[2021-09-01 13:13] LABS: Basophils Absolute Auto 0.1 X10*3/uL (0.0-0.2); Basophils Percent Auto 0.6 % (0-2); Eosinophils Absolute Auto 0.3 X10*3/uL (0.0-0.4); Eosinophils Percent Auto 3.7 % (0-4); Hemoglobin 10.6 g/dl (12.0-16.0); Imm Gran Abs Auto 0.02 X10*3/uL (0.00-0.03); Imm Gran Pct Auto 0.2 % (0.0-0.4); Lymphocytes Absolute Auto 3.3 X10*3/uL (1.2-4.9); Lymphocytes Percent Auto 38.5 % (20-40); Mean Corpuscular HGB Conc 32.1 g/dl (31.0-35.0); Mean Corpuscular Hemoglobin 29.3 pg (27.0-33.0); Mean Corpuscular Volume 91.2 fL (80-98); Mean Platelet Volume 10.9 fL (9.4-12.3); Monocytes Absolute Auto 0.8 X10*3/uL (0.1-1.2); Monocytes Percent Auto 9.6 % (2-11); Neutrophils Absolute Auto 4.1 X10*3/uL (2.0-8.3); Neutrophils Percent Auto 47.4 % (45-73); Platelet Count 230 X10*3/uL (160-400); Red Blood Count 3.62 X10*6/uL (4.20-5.50); Red Cell Distribution Width 16.8 % (11.0-16.0); White Blood Count 8.7 X10*3/uL (4.8-10.8)
[2021-09-01 13:26] LABS: Alanine Aminotransferase 12 U/L (0-31); Albumin Level 3.6 g/dL (3.5-5.0); Alkaline Phosphatase 85 U/L (39-117); Anion Gap 12 (12-20); Aspartate Amino Transferase 13 U/L (5-31); Bilirubin Total 0.3 mg/dL (0.0-1.0); Blood Urea Nitrogen 25 mg/dL (9-16); Calcium 8.1 mg/dL (8.4-10.2); Carbon Dioxide 22 mmol/L (22-29); Chloride 111 mmol/L (96-108); Estimated Glomerular Filt Rate 48; Glucose Random 110 mg/dL (60-115); Magnesium 1.7 mg/dL (1.6-2.6); Sodium 141 mmol/L (135-145); Total Protein 6.9 g/dL (6.5-8.0)
[2021-09-01 14:28] VITALS: BP 147/53; PULSE 47; RESP 18; O2SAT 100; BMI 25.2
[2021-09-01] MEDS: 0.9 % Sodium Chloride 1,000 ML 999 ML IV (14:43)
--- NOTE | 2021-09-04 08:14 | ECG_ITS ---
Test Reason : CHEST PAIN Blood Pressure : / mmHG Vent. Rate : 045 BPM Atrial Rate : 045 BPM P-R Int : 134 ms QRS Dur : 084 ms QT Int : 536 ms P-R-T Axes : 046 033 018 degrees QTc Int : [address] & T wave abnormality, consider anterior ischemia Abnormal ECG When compared with ECG of 01-SEP-2021 12:15, No significant change was found Referred By: Stewart Floyd Electronically Signed By:DIVINE DE OLIVEIRA MD
== END 2021-09-01 18:27 | disposition home or self-care (01) ==
PROVIDERS: Emergency Provider Emergency Medicine; PCP Internal Medicine
DX: R53.1 Weakness (principal); E83.51 Hypocalcemia; D64.9 Anemia, unspecified
CPT/HCPCS: 36415; 80053; 83735; 85025; 93005; 96360; 99283; 99284

== ENCOUNTER 2022-03-01 09:17 | Outpatient (REF) | payer MEDICARE, SELFPAY ==
--- NOTE | ~2022-03-01 | XR_ITS ---
EXAMINATION: XR HIP, LEFT CLINICAL INFORMATION: Osteoarthritis left hip. Multiple myeloma. COMPARISON: CT pelvis 03/04/2021, metastatic bone survey 10/29/2019 TECHNIQUE: Two views of the left hip. FINDINGS: Left hip shows no fracture or dislocation or destructive process. There is no focal joint narrowing or erosive change or chondrocalcinosis. There is minor spurring from caudal aspect greater trochanter. Osteitis pubis present. No interval bony destructive process by plain film. XR/XR hip LT min 2V IMPRESSION: -No acute bony abnormality. -No hip joint narrowing or erosive change. -Osteitis pubis.
--- NOTE | ~2022-03-01 | XR_ITS ---
EXAMINATION: XR KNEE, LEFT CLINICAL INFORMATION: Osteoarthritis left knee, multiple myeloma COMPARISON: Metastatic bone survey 10/29/2019 TECHNIQUE: Four views of the left knee. FINDINGS: No fracture, dislocation, or definite suprapatellar effusion. Hoffa's fat pad appears normal. There is no joint narrowing or erosive change or chondrocalcinosis. There is spurring at the quadriceps insertion patella. Axial view patella shows borderline lateralization. There is no bony destructive process. No periostitis. XR/XR knee LT 4V IMPRESSION: -No fracture, dislocation, destructive process. -No joint narrowing or erosive change. -Borderline lateralization patella. -Spurring at quadriceps insertion patella.
== END 2022-03-01 09:18 | disposition home or self-care (01) ==
LOC: HO.XRAY 09:17
PROVIDERS: PCP Internal Medicine; Visit Provider Internal Medicine
DX: M16.12 Unilateral primary osteoarthritis, left hip (principal); M17.12 Unilateral primary osteoarthritis, left knee
CPT/HCPCS: 73502; 73564

== ENCOUNTER 2022-05-11 09:31 | Inpatient (IN) | payer MEDICARE, MEDICAID, SELFPAY ==
--- NOTE | ~2022-05-11 | XR_ITS ---
EXAMINATION: XR CHEST CLINICAL INFORMATION: Cough COMPARISON: Previous chest x-ray most recent February 2021 TECHNIQUE: Frontal view of the chest was obtained. FINDINGS: The cardiac and mediastinal contours are normal. The lungs are clear. There is no pleural effusion or pneumothorax. There are degenerative changes of the spine and shoulders. There is a mixed lytic and sclerotic lesion in the right acromion that is similar to previous exams. There are old bilateral rib fractures. XR/XR chest 1V IMPRESSION: No evidence for acute disease in the chest. Stable right acromial lesion. Old bilateral rib fractures.
[2022-05-11 09:36] VITALS: BP 136/60; PULSE 57; RESP 18; TEMP 36.6; O2SAT 99; BMI 25.7
--- NOTE | 2022-05-11 09:56 | ECG_ITS ---
Test Reason : abd pain Blood Pressure : / mmHG Vent. Rate : 049 BPM Atrial Rate : 049 BPM P-R Int : 120 ms QRS Dur : 084 ms QT Int : 536 ms P-R-T Axes : 026 030 009 degrees QTc Int : [address] & T wave abnormality, consider anterolateral ischemia Prolonged QT Abnormal ECG When compared with ECG of 01-SEP-2021 12:44, No significant change was found Referred By: Khloe Mortensen Electronically Signed By:Iraj Hernandez
[2022-05-11] MEDS: 0.9 % Sodium Chloride 1,000 ML 999 ML IV (10:09)
[2022-05-11 10:13] LABS: MANUAL DIFF FLAG NO
[2022-05-11 10:15] LABS: Basophils Absolute Auto 0.1 X10*3/uL (0.0-0.2); Basophils Percent Auto 0.7 % (0-2); Eosinophils Absolute Auto 0.3 X10*3/uL (0.0-0.4); Eosinophils Percent Auto 4.7 % (0-4); Hematocrit 35.7 % (37.0-47.0); Hemoglobin 11.2 g/dl (12.0-16.0); Imm Gran Abs Auto 0.02 X10*3/uL (0.00-0.03); Imm Gran Pct Auto 0.3 % (0.0-0.4); Lymphocytes Absolute Auto 2.7 X10*3/uL (1.2-4.9); Lymphocytes Percent Auto 38.5 % (20-40); Mean Corpuscular HGB Conc 31.4 g/dl (31.0-35.0); Mean Corpuscular Hemoglobin 28.4 pg (27.0-33.0); Mean Corpuscular Volume 90.4 fL (80.0-98.0); Mean Platelet Volume 10.7 fL (9.4-12.3); Monocytes Absolute Auto 0.7 X10*3/uL (0.1-1.2); Monocytes Percent Auto 9.7 % (2-11); Neutrophils Absolute Auto 3.2 x10*3/uL (2.0-8.3); Neutrophils Percent Auto 46.1 % (45-73); Platelet Count 242 X10*3/uL (160-400); Red Blood Count 3.95 X10*6/uL (4.20-5.50); Red Cell Distribution Width 15.8 % (11.0-16.0)
[2022-05-11 10:26] LABS: Lactic Acid 1.2 mmol/L (0.5-2.0)
[2022-05-11 10:29] LABS: COVID-19 Test Negative (Negative); IDNOW Serial# 16C4AD1C
[2022-05-11 10:34] LABS: Troponin-I High Sensitivity 5.4 ng/L (<3.5-17.0)
[2022-05-11 10:36] LABS: Alanine Aminotransferase 43 U/L (0-31); Albumin Level 3.7 g/dL (3.5-5.0); Alkaline Phosphatase 162 U/L (39-117); Anion Gap 14 (12-20); Aspartate Amino Transferase 25 U/L (5-31); Bilirubin Direct < 0.2 mg/dL (0.0-0.5); Bilirubin Total 0.3 mg/dL (0.0-1.0); Blood Urea Nitrogen 16 mg/dL (9-16); Calcium 7.7 mg/dL (8.4-10.2); Carbon Dioxide 18 mmol/L (22-29); Chloride 112 mmol/L (96-108); Creatinine Clr Calc Pharmacy 33.5; Estimated Glomerular Filt Rate 39; Glucose Random 114 mg/dL (60-115); Lipase 40 U/L (8-78); Magnesium 1.8 mg/dL (1.6-2.6); Potassium 4.3 mmol/L (3.3-5.1); Sodium 140 mmol/L (135-145); Total Protein 7.7 g/dL (6.5-8.0)
--- NOTE | 2022-05-11 10:37 | ED_ITS ---
HPI - General Adult General Chief complaint: Abdominal Pain Stated complaint: diarrhea/abd pain/lower back pain Time Seen by Provider: 05/11/22 09:43 Source: patient Mode of arrival: ambulatory History of Present Illness HPI narrative: 76-year-old female past medical history of depression, GERD, multiple myeloma, hypothyroid, presenting to the emergency department complaining watery diarrhea x1 week. Admits 4 or more episodes daily without blood or melena. Also reports suprapubic discomfort, intermittent productive cough with mild SOB. Denies fever, chills, nausea, vomiting, dysuria/hematuria, recent travel, suspicious food, recent antibiotics, change in medications Onset (ago): day(s) Related Data Home Medications Medication Instructions Recorded Confirmed levothyroxine 75 mcg tablet 75 mcg PO DAILY 10/27/20 05/11/22 aspirin 81 mg chewable tablet 81 mg PO DAILY 12/16/20 05/11/22 fluoxetine 20 mg capsule 20 mg PO QAM 12/16/20 05/11/22 mirtazapine 30 mg tablet 30 mg PO BEDTIME 12/16/20 05/11/22 omeprazole 20 mg capsule,delayed 1 cap PO DAILY 05/11/22 05/11/22 release Previous Rx's Medication Instructions Recorded acyclovir 400 mg tablet 400 mg PO DAILY@1200 #90 tabs 01/12/21 lenalidomide 10 mg capsule 10 mg PO DAILY #14 caps 06/02/21 (Revlimid) Allergies Allergy/AdvReac Type Severity Reaction Status Date / Time No Known Allergies Allergy Verified 12/16/20 11:14 [No Known Allergies*] Review of Systems Review of Systems: Constitutional: No Fever, No Chills, No Fatigue, No Malaise ENT/Mouth: No Ear Pain, No Nasal Congestion, No Sinus Pain, No Hoarseness, No sore throat, No Rhinorrhea, No Swallowing Difficulty Eyes: No Eye Pain, No Swelling, No Redness Cardiovascular: No Chest Pain, + SOB, No Palpitations Respiratory: + Cough, + Sputum, No Wheezing, No Smoke Exposure, No Dyspnea Gastrointestinal: No Nausea, No Vomiting, + Diarrhea, No Constipation, + Abdominal pain, No Hematochezia, No Melena Genitourinary: No Dysuria, No Urinary Frequency, No Hematuria, No Urinary Incontinence/retention, No Flank Pain Musculoskeletal: No joint pain, No Myalgias, No Joint Swelling Skin: No Skin Lesions, No rash Neuro: No Weakness, No Numbness, No Dizziness, No Headache Yes all other systems are reviewed and are negative [facility] Past Medical History Attestation statement: The following information was validated with the patient. Medical History Depression H/O gastroesophageal reflux (GERD) Hx of multiple myeloma Hypothyroidism Surgical History History of bone marrow biopsy History of cholecystectomy Family History Family History Daughter Diabetes Thyroid cancer Social History Social History Household Members: Children Household Members Other:: adult son Housing: House Do you presently have visiting nurse or other home services: Yes (currently at home care place) Alcohol intake: never Patient Tobacco Use Status: Current someday Tobacco user Tobacco use type: Cigarette Cigarettes Per Day: 2 Years Smoked: 20 e-Cigarette/Vaping Use: Never Used Second Hand Smoke Exposure: No Substance Use Type: Marijuana Advance Directives Date on File: 03/15/21 service: No Current occupational status: unemployed Physical Exam ED Vital Signs: Vital Signs - 24 hr 05/11/22 09:36 05/11/22 13:49 Temperature 97.8 F 98.1 F Pulse Rate 57 42 L Respiratory Rate 18 16 Blood Pressure 136/60 126/57 L Pulse Oximetry 99 100 Oxygen Delivery Method Room Air Room Air BMI result Body Mass Index 25.7 Const General: cooperative, healthy appearing and no acute distress Orientation/consciousness: patient oriented x3 Limitations: no limitations HENMT Head: Yes normal to inspection and Yes atraumatic Ears: hearing grossly normal bilaterally General nose exam: Normal external nose present Face and sinus: Yes normal facial exam Eyes General: appearance normal, both eyes and all related structures EOM: EOMs intact bilaterally Neck Neck: Yes normal visual inspection and Yes no meningeal signs Resp Effort & Inspection: normal respiratory effort and no respiratory distress Auscultation: clear to auscultation bilaterally, no rales, no rhonchi and no wheezes Cardio Rate: regular rate Heart sounds: S1 normal heart sound present and S2 normal heart sound present GI Inspection: Yes normal to inspection Palpation (GI): Soft to palpation, nontender, no guarding and not rigid General: Yes no CVA tenderness Back/Spine/Pelvis Back: no CVA tenderness Skin Rashes: no rashes Wounds: no wounds Neuro General: patient oriented x3, tone normal and no meningeal signs Gait exam (Neuro): Normal gait present Extrem General: Yes normal to inspection and Yes no pedal edema Course Course Course Narrative: -1128--calcium low at 7.7, ALT mildly elevated, initial troponin 5.4 > will obtain 3 hour repeat. labs otherwise the patient's baseline > patient reports last received infusion for multiple myeloma on the > will consolt Heme/Onc for further recommendations -1211--Spoke to Dr. Dukes who states Bisphosphinate may be causing hypocalcemia, reccommended IV Ca+ repletion and admission Medical Decision Making MDM Narrative Medical decision making narrative: 76-year-old female past medical history of depression, GERD, multiple myeloma, hypothyroid, presenting to the emergency department complaining watery diarrhea x1 week. Also reports suprapubic discomfort, intermittent productive cough with mild SOB. On exam vital stable, NAD, nontoxic appearing, abdomen sof t/nontender, lungs CTA. Concern for gastroenteritis vs viral syndrome vs food poisoning vs C diff. rule out pneumonia. Symptoms a take focal for ACS/PE, low suspicion for GI bleed or appendicitis/diverticulitis plan: Labs, UA, CXR, COVID-19/influenza testing, stool studies, IVF Medical Records Medical records reviewed: Yes I reviewed the patient's medical records. Lab Data Lab results reviewed: Yes I reviewed the patient's lab results. Result diagrams: 05/11/22 10:07 05/11/22 10:07 Labs: Lab Results 05/11/22 05/11/22 05/11/22 Range/Units 10:07 10:07 10:07 WBC 7.0 (4.8-10.8) X10*3/uL RBC 3.95 L (4.20-5.50) X10*6/uL Hgb 11.2 L (12.0-16.0) g/dl Hct 35.7 L (37.0-47.0) % MCV 90.4 (80.0-98.0) fL MCH 28.4 (27.0-33.0) pg MCHC 31.4 (31.0-35.0) g/dl RDW 15.8 (11.0-16.0) % Plt Count 242 (160-400) X10*3/uL MPV 10.7 (9.4-12.3) fL Immature Gran % (Auto) 0.3 (0.0-0.4) % Neut % (Auto) 46.1 (45-73) % Lymph % (Auto) 38.5 (20-40) % [place] % (Auto) 9.7 (2-11) % Eos % (Auto) 4.7 H (0-4) % Baso % (Auto) 0.7 (0-2) % Lymph # (Auto) 2.7 (1.2-4.9) X10*3/uL [place] # (Auto) 0.7 (0.1-1.2) X10*3/uL Eos # (Auto) 0.3 (0.0-0.4) X10*3/uL Baso # (Auto) 0.1 (0.0-0.2) X10*3/uL Abs Immat Gran (auto) 0.02 (0.00-0.03) X10*3/uL Absolute Neuts (auto) 3.2 (2.0-8.3) x10*3/uL Absolute Nucleated RBC 0.000 (0.0-0.012) X10*3/uL Nucleated RBC % (auto) 0.0 (0.0-0.2) /100WBC Sodium 140 (135-145) mmol/L Potassium 4.3 (3.3-5.1) mmol/L Chloride 112 H (96-108) mmol/L Carbon Dioxide 18 L (22-29) mmol/L Anion Gap 14 (12-20) BUN 16 (9-16) mg/dL Creatinine 1.33 (0.5-1.4) mg/dL Estim Creat Clear Calc 33.5 Estimated GFR 39 Random Glucose 114 (60-115) mg/dL Lactic Acid 1.2 (0.5-2.0) mmol/L Calcium 7.7 L D (8.4-10.2) mg/dL Magnesium 1.8 (1.6-2.6) mg/dL Total Bilirubin 0.3 (0.0-1.0) mg/dL Direct Bilirubin < 0.2 (0.0-0.5) mg/dL AST 25 D (5-31) U/L ALT 43 H (0-31) U/L Alkaline Phosphatase 162 H D (39-117) U/L Troponin I High Sens (<3.5-17.0) ng/L Total Protein 7.7 (6.5-8.0) g/dL Albumin 3.7 (3.5-5.0) g/dL Lipase 40 (8-78) U/L TSH 4.53 H (0.32-4.0) uIU/mL COVID-19 ([facility]) (Negative) COVID-19 Clin Com 05/11/22 05/11/22 05/11/22 Range/Units 10:07 10:07 12:56 WBC (4.8-10.8) X10*3/uL RBC (4.20-5.50) X10*6/uL Hgb (12.0-16.0) g/dl Hct (37.0-47.0) % MCV (80.0-98.0) fL MCH (27.0-33.0) pg MCHC (31.0-35.0) g/dl RDW (11.0-16.0) % Plt Count (160-400) X10*3/uL MPV (9.4-12.3) fL Immature Gran % (Auto) (0.0-0.4) % Neut % (Auto) (45-73) % Lymph % (Auto) (20-40) % [place] % (Auto) (2-11) % Eos % (Auto) (0-4) % Baso % (Auto) (0-2) % Lymph # (Auto) (1.2-4.9) X10*3/uL [place] # (Auto) (0.1-1.2) X10*3/uL Eos # (Auto) (0.0-0.4) X10*3/uL Baso # (Auto) (0.0-0.2) X10*3/uL Abs Immat Gran (auto) (0.00-0.03) X10*3/uL Absolute Neuts (auto) (2.0-8.3) x10*3/uL Absolute Nucleated RBC (0.0-0.012) X10*3/uL Nucleated RBC % (auto) (0.0-0.2) /100WBC Sodium (135-145) mmol/L Potassium (3.3-5.1) mmol/L Chloride (96-108) mmol/L Carbon Dioxide (22-29) mmol/L Anion Gap (12-20) BUN (9-16) mg/dL Creatinine (0.5-1.4) mg/dL Estim Creat Clear Calc Estimated GFR Random Glucose (60-115) mg/dL Lactic Acid (0.5-2.0) mmol/L Calcium (8.4-10.2) mg/dL Magnesium (1.6-2.6) mg/dL Total Bilirubin (0.0-1.0) mg/dL Direct Bilirubin (0.0-0.5) mg/dL AST (5-31) U/L ALT (0-31) U/L Alkaline Phosphatase (39-117) U/L Troponin I High Sens 5.4 5.8 (<3.5-17.0) ng/L Total Protein (6.5-8.0) g/dL Albumin (3.5-5.0) g/dL Lipase (8-78) U/L TSH (0.32-4.0) uIU/mL COVID-19 ([facility]) Negative (Negative) COVID-19 Clin Com See Note ECG Data Attestation: I personally reviewed and interpreted this ECG as follows: Prior ECG tracings: available for review Interpretation: EKG sinus bradycardia at a rate of 49. OR interval 120. No significant change when compared to prior EKG from August 2021. QTC 484 Critical Care Time Critical Care Time Critical Care Time: Yes Total Critical Care Time: 35 Attestation: I have personally provided critical care time exclusive of time spent on separately billable procedures. Time includes review of lab data, radiology results, discussion with consultants, and monitoring for potential decompensation. Intervention performed as documented. Discharge Plan Discharge Clinical Impression: Hypocalcemia Patient Disposition: Admitted As Inpatient Interventions: Admission Worksheet (ED) Last Done: 05/11/22 16:14 Discharge Date/Time: 05/11/22 16:24
[2022-05-11] MEDS: Calcium Gluconate/NaCl,Iso-Osm 1 GM/50 ML PLAST..BAG IV (12:54)
[2022-05-11 13:25] LABS: Troponin-I High Sensitivity 5.8 ng/L (<3.5-17.0)
[2022-05-11 13:49] VITALS: BP 126/57; PULSE 42; RESP 16; TEMP 36.7; O2SAT 100
--- NOTE | 2022-05-11 13:50 | PC.NURSE ---
hosp md at bedside, pt aware of plan of care.
--- NOTE | 2022-05-11 14:07 | PHA.MEDREC ---
Pharmacy Consult ? Medication Reconciliation Pharmacy has completed the medication reconciliation. Nursing Technician was used as patient is primarily serbian speaking. Omeprazole 20mg daily with a meal was added.
--- NOTE | 2022-05-11 14:44 | P.HPHOSP_ITS ---
History of Present Illness Date of Service: 05/11/22 Chief Complaint: Weakness, diarrhea A 76 years old lady with PMH of multiple myeloma, GERD, depression, hypothyroidism who presents to the hospital with a complaint of watery diarrhea for almost a week. Reports that she has low were appetite and increased diarr hea started after she had her last chemotherapy almost 9 days ago. Going to the bathroom 4 to 5 times a day or more as she reported last day she almost spend the whole day with watery diarrhea with no associated fever, chills, chest pain, abdominal pain, nausea or vomiting. She reports having suprapubic discomfort with no dysuria. In the emergency she was found to have low calcium level. Upon contacting her primary oncologist Dr. Dukes she believed this is a result of using Denusomab?. Review of Systems Review of Systems: No fever, chills but reporting generalized weakness No chest pain, palpitation No shortness of breath or coughing No abdominal pain, nausea or vomiting but having recurrent watery No urinary symptoms No any rash or wounds PMFSH Medical History Depression H/O gastroesophageal reflux (GERD) Hx of multiple myeloma Hypothyroidism Family History Daughter Diabetes Thyroid cancer Surgical History History of bone marrow biopsy History of cholecystectomy Social History Household Members: Spouse and Children Household Members Other:: adult son Housing: House Do you presently have visiting nurse or other home services: Yes ( once in a while ) Alcohol intake: never Years Smoked: 20 Second Hand Smoke Exposure: No Advance Directives: Yes Advance Directives on File: Yes Advance Directives Date on File: 03/15/21 service: No Current occupational status: unemployed Meds Allergies Allergy/AdvReac Type Severity Reaction Status Date / Time No Known Allergies Allergy Verified 12/16/20 11:14 [No Known Allergies*] Active Medications: Current Medications Pharmacy Consult (Consult Rx Perform Med Rec) 1 each MISCELLANE ONCE PRN PRN Reason: Consult order Home Medications Medication Instructions Recorded Confirmed Last Taken Type levothyroxine 75 mcg tablet 75 mcg PO DAILY 10/27/20 05/11/22 11/02/20 07:00 History aspirin 81 mg chewable tablet 81 mg PO DAILY 12/16/20 05/11/22 Unknown History fluoxetine 20 mg capsule 20 mg PO QAM 12/16/20 05/11/22 Unknown History mirtazapine 30 mg tablet 30 mg PO BEDTIME 12/16/20 05/11/22 Unknown History omeprazole 20 mg capsule,delayed 1 cap PO DAILY 05/11/22 05/11/22 Unknown History release Physical Exam Vital Signs and Narrative: Vital Signs: Last Vital Signs Temp 98.1 F 05/11/22 13:49 Pulse 42 L 05/11/22 13:49 Resp 16 05/11/22 13:49 BP 126/57 L 05/11/22 13:49 Pulse Ox 100 05/11/22 13:49 O2 Del Method 05/11/22 13:49 BMI result Body Mass Index 25.7 Const: Other: Constitutional : Alert, oriented, not in distress Neck : Normal inspection, Supple Cardiovascular : RRR, no JVP, no lower extremity edema Respiratory : fair bilateral air entry, no crackles, wheezes or rhonchi Gastrointestinal: soft, lax, Normal bowel sounds, Non tender Skin : Warm, Dry Neurological : Alert & oriented x3, No focal deficit , CN 2-12 within normal Results Labs CBC and Chem 7: 05/11/22 10:07 05/11/22 10:07 Labs: Laboratory Results - last 24 hr 05/11/22 05/11/22 05/11/22 10:07 10:07 10:07 MCV 90.4 MCH 28.4 MCHC 31.4 RDW 15.8 Plt Count 242 MPV 10.7 Immature Gran % (Auto) 0.3 Neut % (Auto) 46.1 Lymph % (Auto) 38.5 [place] % (Auto) 9.7 Eos % (Auto) 4.7 H Baso % (Auto) 0.7 Lymph # (Auto) 2.7 [place] # (Auto) 0.7 Eos # (Auto) 0.3 Baso # (Auto) 0.1 Abs Immat Gran (auto) 0.02 Absolute Neuts (auto) 3.2 Absolute Nucleated RBC 0.000 Nucleated RBC % (auto) 0.0 Anion Gap 14 Estim Creat Clear Calc 33.5 Estimated GFR 39 Random Glucose 114 Lactic Acid 1.2 Calcium 7.7 L D Magnesium 1.8 Total Bilirubin 0.3 Direct Bilirubin < 0.2 AST 25 D ALT 43 H Alkaline Phosphatase 162 H D Troponin I High Sens Total Protein 7.7 Albumin 3.7 Lipase 40 COVID-19 ([facility]IDA) COVID-19 Clin Com 05/11/22 05/11/22 05/11/22 10:07 10:07 12:56 MCV MCH MCHC RDW Plt Count MPV Immature Gran % (Auto) Neut % (Auto) Lymph % (Auto) [place] % (Auto) Eos % (Auto) Baso % (Auto) Lymph # (Auto) [place] # (Auto) Eos # (Auto) Baso # (Auto) Abs Immat Gran (auto) Absolute Neuts (auto) Absolute Nucleated RBC Nucleated RBC % (auto) Anion Gap Estim Creat Clear Calc Estimated GFR Random Glucose Lactic Acid Calcium Magnesium Total Bilirubin Direct Bilirubin AST ALT Alkaline Phosphatase Troponin I High Sens 5.4 5.8 Total Protein Albumin Lipase COVID-19 ([facility]IDA) Negative COVID-19 Clin Com See Note Imaging Radiologist's Impressions: Impressions Chest X-Ray 05/11/22 10:17 IMPRESSION: No evidence for acute disease in the chest. Stable right acromial lesion. Old bilateral rib fractures. Assessment and Plan (1) Hypocalcemia: Status: Acute (2) Diarrhea: Status: Acute Plan A 76 years old lady with PMH of multiple myeloma, GERD, depression, hypothyroidism who presents to the hospital with a complaint of watery diarrhea for almost a week. Diarrhea Likely related to medications Pending stool analysis To use Imodium as needed Hypocalcemia Likely secondary to the denosumab Give IV and p.o. replacement Monitor BMP Multiple myeloma Continue home medication lenalidomide as prescribed Continue acyclovir as prophylaxis Hypothyroidism Check TSH continue levothyroxine DVT PPX Lovenox The patient will likely need to stay in the hospital for 2 nights for treatment and evaluation of diarrhea and hypocalcemia. Quality Stroke Does the patient have a stroke diagnosis?: No VTE Prior VTE?: No VTE Risk Level:: Medical - moderate - high VTE Device Contraindication: Treatment Not Indicated VTE Drug Contraindication: N/A - Med Ordered
[2022-05-11 15:15] LABS: Thyroid Stimulating Hormone 4.53 uIU/mL (0.32-4.0)
[2022-05-11 16:00] VITALS: BP 138/63; PULSE 46; RESP 18; TEMP 35.8; O2SAT 100
[2022-05-11] MEDS: Enoxaparin Sodium 40 MG/0.4 ML SYRINGE SUBCUT (17:48)
[2022-05-11] MEDS: 0.9 % Sodium Chloride Flush 3 ML SYRINGE IVFLUSH ×2 (17:49→20:02)
[2022-05-11] MEDS: Mirtazapine 30 MG TABLET PO (20:01)
[2022-05-11] MEDS: oxyCODONE HCl Immed Release 5 MG TABLET 10 MG PO (22:21)
[2022-05-12] VITALS: BP 112/54; PULSE 50; RESP 18; TEMP 37.4; O2SAT 97
[2022-05-12] MEDS: Levothyroxine Sodium 75 MCG TABLET PO (06:09)
[2022-05-12] MEDS: Omeprazole 20 MG CAPSULE.DR PO (06:09)
[2022-05-12 06:46] LABS: Hematocrit 34.3 % (37.0-47.0); Hemoglobin 10.9 g/dl (12.0-16.0); Mean Corpuscular HGB Conc 31.8 g/dl (31.0-35.0); Mean Corpuscular Hemoglobin 28.8 pg (27.0-33.0); Mean Corpuscular Volume 90.7 fL (80.0-98.0); Mean Platelet Volume 11.2 fL (9.4-12.3); Platelet Count 227 X10*3/uL (160-400); Red Blood Count 3.78 X10*6/uL (4.20-5.50); Red Cell Distribution Width 15.7 % (11.0-16.0); White Blood Count 6.9 X10*3/uL (4.8-10.8)
--- NOTE | 2022-05-12 07:10 | PHA.MEDREC ---
Pharmacy Consult ? Medication Reconciliation Pharmacy has completed the medication reconciliation. Nursing completed med rec, reviewed by pharmacy
[2022-05-12 07:11] LABS: Anion Gap 11 (12-20); Blood Urea Nitrogen 15 mg/dL (9-16); Calcium 7.8 mg/dL (8.4-10.2); Carbon Dioxide 20 mmol/L (22-29); Chloride 114 mmol/L (96-108); Creatinine Clr Calc Pharmacy 42.5; Estimated Glomerular Filt Rate 51; Glucose Random 80 mg/dL (60-115); Potassium 4.7 mmol/L (3.3-5.1); Sodium 140 mmol/L (135-145)
[2022-05-12 07:49] VITALS: BP 118/69; PULSE 45; RESP 16; TEMP 37.1; O2SAT 99
[2022-05-12] MEDS: oxyCODONE HCl Immed Release 5 MG TABLET 10 MG PO ×2 (08:17→20:12)
[2022-05-12] MEDS: FLUoxetine HCl 20 MG CAPSULE PO (08:18)
[2022-05-12] MEDS: Aspirin 81 MG TAB.CHEW PO (08:18)
[2022-05-12] MEDS: cefTRIAXone sodium 1 GM in 0.9 % Sodium Chloride 50 ML IV (08:19)
[2022-05-12] MEDS: Calcium + Vitamin D 250 MG TABLET 500 MG PO ×2 (08:19→16:13)
[2022-05-12] MEDS: 0.9 % Sodium Chloride Flush 3 ML SYRINGE IVFLUSH ×3 (08:19→20:13)
--- NOTE | 2022-05-12 10:30 | P.PNIM_ITS ---
Subjective Subjective Date of Service: 05/12/22 Review of Systems No fever, chills but reporting generalized weakness No chest pain, palpitation No shortness of breath or coughing No abdominal pain, nausea or vomiting but having recurrent watery No urinary symptoms No any rash or wounds Physical Exam Vital Signs: Vital Signs: Last Vital Signs Temp 98.8 F 05/12/22 07:49 Pulse 45 L 05/12/22 07:49 Resp 16 05/12/22 07:49 BP 118/69 05/12/22 07:49 Pulse Ox 99 05/12/22 07:49 O2 Del Method 05/12/22 07:49 BMI result Body Mass Index 25.7 Const: Other: Constitutional : Alert, oriented, not in distress Neck : Normal inspection, Supple Cardiovascular : RRR, no JVP, no lower extremity edema Respiratory : fair bilateral air entry, no crackles, wheezes or rhonchi Gastrointestinal: soft, lax, Normal bowel sounds, Non tender Skin : Warm, Dry Neurological : Alert & oriented x3, No focal deficit , CN 2-12 within normal Objective Data Active Medications Acetaminophen (Acetaminophen 325 Mg Tablet) 650 mg PO Q6H PRN PRN Reason: Pain, Mild (Pain Scale 1-3) Acyclovir (Acyclovir 200 Mg Capsule) 400 mg PO DAILY@1200 [facility] Aspirin (Aspirin 81 Mg Tab.Chew) 81 mg PO DAILY [facility] Last Admin: 05/12/22 08:18 Dose: 81 mg Documented By: DARVIN Calcium Carbonate (Calcium Carbonate 500 Mg Tablet) 500 mg PO TID [facility] Last Admin: 05/12/22 08:19 Dose: 500 mg Documented By: DARVIN Calcium Carbonate/Cholecalciferol (Calcium + Vitamin D 250 Mg Tablet) 500 mg PO BIDWM [facility] Last Admin: 05/12/22 08:19 Dose: 500 mg Documented By: DARVIN Enoxaparin Sodium (Enoxaparin Sodium 40 Mg/0.4 Ml Syringe) 40 mg SUBCUT Q24H [facility] Last Admin: 05/11/22 17:48 Dose: 40 mg Documented By: LISA Fluoxetine HCl (Fluoxetine Hcl 20 Mg Capsule) 20 mg PO DAILY [facility] Last Admin: 05/12/22 08:18 Dose: 20 mg Documented By: DARVIN Ceftriaxone Sodium 1 gm/ (Sodium Chloride) 50 mls @ 100 mls/hr IV Q24H [facility] Last Infusion: 05/12/22 09:00 Dose: 0 mls/hr Documented By: DARVIN Levothyroxine Sodium (Levothyroxine Sodium 75 Mcg Tablet) 75 mcg PO DAILY@0600 [facility] Last Admin: 05/12/22 06:09 Dose: 75 mcg Documented By: EDIN Loperamide HCl (Loperamide Hcl 2 Mg Capsule) 2 mg PO Q4H PRN PRN Reason: Diarrhea Mirtazapine (Mirtazapine 30 Mg Tablet) 30 mg PO BEDTIME [facility] Last Admin: 05/11/22 20:01 Dose: 30 mg Documented By: EDIN Non-Formulary Medication (Lenalidomide [Revlimid]) 10 mg PO DAILY [facility] Omeprazole (Omeprazole 20 Mg Capsule.Dr) 20 mg PO DAILY@30 [facility] Last Admin: 05/12/22 06:09 Dose: 20 mg Documented By: EDIN Ondansetron HCl (Ondansetron Hcl 4 Mg/2 Ml Vial) 4 mg IVPUSH Q8H PRN PRN Reason: Nausea and Vomiting Oxycodone HCl (Oxycodone Hcl Immed Release 5 Mg Tablet) 10 mg PO Q12H [facility] Last Admin: 05/12/22 08:17 Dose: 10 mg Documented By: DARVIN Pharmacy Consult (Consult Rx Perform Med Rec) 1 each MISCELLANE ONCE PRN PRN Reason: Consult order Sodium Chloride (0.9 % Sodium Chloride Flush 3 Ml Syringe) 3 ml IVFLUSH QSHIFT [facility] Last Admin: 05/12/22 08:19 Dose: 3 ml Documented By: DARVIN Labs CBC & Chem 7: 05/12/22 05:45 05/12/22 05:45 Labs: Laboratory Results - last 24 hr 05/11/22 05/11/22 05/11/22 10:07 10:07 10:07 MCV MCH MCHC RDW Plt Count MPV Absolute Nucleated RBC Nucleated RBC % (auto) Anion Gap 14 Estim Creat Clear Calc 33.5 Estimated GFR 39 Random Glucose 114 Calcium 7.7 L D Magnesium 1.8 Total Bilirubin 0.3 Direct Bilirubin < 0.2 AST 25 D ALT 43 H Alkaline Phosphatase 162 H D Troponin I High Sens 5.4 Total Protein 7.7 Albumin 3.7 Lipase 40 TSH 4.53 H COVID-19 ([facility]) Negative COVID-19 Clin Com See Note 05/11/22 05/12/22 05/12/22 12:56 05:45 05:45 MCV 90.7 MCH 28.8 MCHC 31.8 RDW 15.7 Plt Count 227 MPV 11.2 Absolute Nucleated RBC 0.000 Nucleated RBC % (auto) 0.0 Anion Gap 11 L Estim Creat Clear Calc 42.5 Estimated GFR 51 Random Glucose 80 Calcium 7.8 L Magnesium Total Bilirubin Direct Bilirubin AST ALT Alkaline Phosphatase Troponin I High Sens 5.8 Total Protein Albumin Lipase TSH COVID-19 ([facility]) COVID-19 Clin Com Assessment and Plan (1) Diarrhea: Status: Acute (2) Hypocalcemia: Status: Acute (3) UTI (urinary tract infection): Status: Acute Plan A 76 years old lady with PMH of multiple myeloma, GERD, depression, hypothyroidi sm who presents to the hospital with a complaint of watery diarrhea for almost a week. Diarrhea Improved Likely related to medications Pending stool studies To use Imodium as needed Hypocalcemia Corrected calcium of 7.9 Likely secondary to the denosumab Received IV and p.o. replacement Restart home calcium and vitamin-D supplement Monitor BMP UTI Urinalysis concerning for possible infection given her multiple myeloma and being on chemotherapy Empirical ceftriaxone Multiple myeloma Continue home medication lenalidomide as prescribed Continue acyclovir as prophylaxis Hypothyroidism Check TSH continue levothyroxine DVT PPX Lovenox The patient will likely need to stay overnight for management and monitoring of hypocalcemia and treat UTI with antibiotics to prevent possible sepsis. Quality Stroke Does the patient have a stroke diagnosis?: No VTE Prior VTE?: No VTE Risk Level:: Medical - moderate - high VTE Device Contraindication: Treatment Not Indicated VTE Drug Contraindication: N/A - Med Ordered
[2022-05-12] MEDS: Acyclovir 200 MG CAPSULE 400 MG PO (11:41)
--- NOTE | 2022-05-12 12:56 | MHC.CM.PN ---
Addendum entered by Therese Evans 05/12/22 13:15: VM left w/[facility] as they are not located in [facility]. Requested callback to review EMR and discuss pt's continued care needs Original Note: Met with pt to discuss d/c planning: Pt states she resides alone after her spouse passed 7 months ago. She has quite a bit of family support and with [facility] for ADL assistance and housekeeping. She uses a walker and family assists with transportation. Pt states she has been Covid vaccinated but couldn't remember the brand or dosing. Call placed to pt's son Marcus who confirms above information and states he will transport his mother home. IMM given to pt and in chart: HCP lists pt's spouse as primary and her granddtr Whitney as second. Pt states she needs to think about completing a new one as she has 4 sons and one dtr to choose from. CM to follow for d/c needs. Re-referred back to [facility].
[2022-05-12 15:44] VITALS: BP 115/58; PULSE 54; RESP 18; TEMP 36.7; O2SAT 97
[2022-05-12] MEDS: Enoxaparin Sodium 40 MG/0.4 ML SYRINGE SUBCUT (16:13)
[2022-05-12] MEDS: Mirtazapine 30 MG TABLET PO (20:13)
[2022-05-12 21:57] LABS: Glucose, Whole Blood 102 mg/dL (60-115)
[2022-05-12 23:14] VITALS: BP 154/70; PULSE 50; RESP 18; TEMP 36.3; O2SAT 99
[2022-05-13] VITALS: RESP 20
[2022-05-13] MEDS: Omeprazole 20 MG CAPSULE.DR PO (05:30)
[2022-05-13] MEDS: Levothyroxine Sodium 75 MCG TABLET PO (05:30)
[2022-05-13] MEDS: FLUoxetine HCl 20 MG CAPSULE PO (07:10)
[2022-05-13] MEDS: Aspirin 81 MG TAB.CHEW PO (07:11)
[2022-05-13] MEDS: cefTRIAXone sodium 1 GM in 0.9 % Sodium Chloride 50 ML IV (07:11)
[2022-05-13] MEDS: 0.9 % Sodium Chloride Flush 3 ML SYRINGE IVFLUSH (07:11)
[2022-05-13] MEDS: Calcium + Vitamin D 250 MG TABLET 500 MG PO (07:11)
[2022-05-13 07:31] LABS: Anion Gap 10 (12-20); Blood Urea Nitrogen 20 mg/dL (9-16); Calcium 8.4 mg/dL (8.4-10.2); Carbon Dioxide 22 mmol/L (22-29); Chloride 111 mmol/L (96-108); Creatinine Clr Calc Pharmacy 43.8; Estimated Glomerular Filt Rate 53; Glucose Random 89 mg/dL (60-115); Potassium 4.7 mmol/L (3.3-5.1); Sodium 138 mmol/L (135-145)
[2022-05-13 07:41] LABS: Alanine Aminotransferase 25 U/L (0-31); Albumin Level 3.4 g/dL (3.5-5.0); Alkaline Phosphatase 135 U/L (39-117); Aspartate Amino Transferase 14 U/L (5-31); Bilirubin Direct 0.2 mg/dL (0.0-0.5); Bilirubin Total 0.3 mg/dL (0.0-1.0); Total Protein 6.9 g/dL (6.5-8.0)
[2022-05-13 07:45] VITALS: BP 127/60; PULSE 44; RESP 16; TEMP 36.6; O2SAT 100
--- NOTE | 2022-05-13 09:38 | MHC.CM.PN ---
Addendum entered by Ashleigh Mosley 05/13/22 11:14: PT DISCHARGED HOME DC SUMMARY FAXED TO [facility] AT 1112 HOURS FAMILY WILL TRANSPORT Original Note: CM INFORMED PT WILL DC HOME TODAY CM CALLED [facility] [phone] AND SPOKE TO BLAIR. HE IS AWARE OF INTENT TO DC AND ASKS THAT DC SUMMARY/ORDERS BE FAXED TO [phone]. PT WILL DC HOME WITH RESUMPTION OF HOME CARE SERVICES AND FAMILY SUPPORT FAMILY TO TRANSPORT
--- NOTE | 2022-05-13 10:41 | P.DS_ITS ---
DS: Providers Provider Date of Service: 05/13/22 Date of admission: 05/11/22 14:41 Primary care physician: Erika Morris MD DS: Diagnosis Discharge Diagnosis (1) Diarrhea: Status: Acute (2) Hypocalcemia: Status: Acute (3) UTI (urinary tract infection): Status: Acute DS: Summary Hospital Course Hospital Course: Admission note HPI A 76 years old lady with PMH of multiple myeloma, GERD, depression, hypothyroidism who presents to the hospital with a complaint of watery diarrhea for almost a week.? Reports that she has low were appetite and increased diarrhea started after she had her last chemotherapy almost 9 days ago.? Going to the bathroom 4 to 5 times a day or more as she reported last day she almost spend the? whole day with watery diarrhea with no associated fever, chills, chest pain, abdominal pain, nausea or vomiting.? She reports having suprapubic discomfort with no dysuria. In the emergency she was found to have low calcium level.? Upon contacting her primary oncologist Dr. Dukes she believed this is a result of using Denusomab?. Hospital course The patient was admitted to the hospital for evaluation and treatment of hypocalcemia and reported diarrhea. She did not have recurrence of diarrhea as she was treated for urinary tract infection with IV antibiotics with good response over the course of hospital stay. Urine culture grew sensitive bact eria. Hypoglycemia believed to be secondary to Denosumab. Received IV and oral replacement with good response as it improved back to normal level. Discussed with her oncologist who recommended restarting her home dose vitamin-D and calcium supplement which seems to be held by the patient or drop from her medication list. Script will be sent for the medications. Start taking calcium supplement and vitamin-D as previously prescribed by your oncologist Dr. Dukes Continue Ceftin as prescribed To follow-up with oncology clinic as scheduled Time Spent with Patient Time attestation: Total time spent providing and/or coordinating discharge services: Discharge coordination time: Greater than 30 minutes Quality: Safe Use of Opioids Does Pt have an Active Cancer Diagnosis on the Problem List?: Yes Opioid Measure Date for [facility] Report: 04/13/22 Opioid Measure Time for [facility] Report: 10:44 Quality: Stroke Does the patient have a stroke diagnosis?: No Physical Exam Vital Signs: Vital Signs: Last Vital Signs Temp 97.9 F 05/13/22 07:45 Pulse 44 L 06/19/22 07:45 Resp 16 05/13/22 07:45 BP 127/60 05/13/22 07:45 Pulse Ox 100 05/13/22 07:45 O2 Del Method 05/13/22 07:45 BMI result Body Mass Index 25.7 Const: Other: Constitutional : Alert, oriented, not in distress Neck : Normal inspection, Supple Cardiovascular : RRR, no JVP, no lower extremity edema Respiratory : fair bilateral air entry, no crackles, wheezes or rhonchi Gastrointestinal: soft, lax, Normal bowel sounds, Non tender Skin : Warm, Dry Neurological : Alert & oriented x3, No focal deficit , CN 2-12 within normal DS: Data Data Completed and Pending Labs on day of discharge: Laboratory Results - last 24 hr 05/12/22 05/13/22 05/13/22 21:53 05:43 05:43 Sodium 138 Potassium 4.7 Chloride 111 H Carbon Dioxide 22 Anion Gap 10 L BUN 20 H Creatinine 1.02 Estim Creat Clear Calc 43.8 Estimated GFR 53 POC Glucose 102 Random Glucose 89 Calcium 8.4 D Total Bilirubin 0.3 Direct Bilirubin 0.2 AST 14 D ALT 25 Alkaline Phosphatase 135 H Total Protein 6.9 Albumin 3.4 L Discharge Plan Discharge Patient Disposition: Home Health Service Discharge Diagnosis: Urinary tract infection Diarrhea Low calcium level Referrals: Erika Morris MD [Primary Care Provider] - 1 Week Discharge Medications: New calcium carbonate [Oyster Shell Calcium 500] 500 mg calcium (1,250 mg) Tablet 500 mg PO TID 30 Days Qty: 90 0RF calcium carbonate-vitamin D3 250 mg-3.125 mcg (125 unit) Tablet 2 tab PO BIDWM 60 Days Qty: 240 0RF cefuroxime axetil 500 mg tablet 500 mg PO BID Qty: 7 0RF Continued levothyroxine 75 mcg tablet 75 mcg PO DAILY lenalidomide [Revlimid] 10 mg capsule 10 mg PO DAILY Qty: 14 11RF Rx Instructions: Take 14 days on and 14 days off. [employer] auth # [id number]. mirtazapine 30 mg tablet 30 mg PO BEDTIME aspirin 81 mg tablet,chewable 81 mg PO DAILY acyclovir 400 mg tablet 400 mg PO DAILY@1200 Qty: 90 4RF omeprazole 20 mg capsule,delayed release(DR/EC) 1 cap PO DAILY oxycodone 10 mg tablet 1 tab PO Q12H fluoxetine 40 mg capsule 1 cap PO DAILY Discharge Orders: Discharge Order (Routine); Ordered 05/13/22 Ordered By: Wagner Lee Diet: advance to usual diet Activity on Discharge: As tolerated Stand Alone Forms: Patient Portal Discharge page Care Plan Goals: Read below Health Concerns: Read below Plan of Treatment: Read below Assessment: You were admitted to the hospital for reported diarrhea and abnormal blood work showing low calcium level. You were found to have urine infection treated with IV antibiotics with good response. Your calcium level improved with replacement usage. Start taking calcium supplement and vitamin-D as previously prescribed by your oncologist Dr. Dukes Continue Ceftin as prescribed To follow-up with oncology clinic as scheduled
[2022-05-13] MEDS: Acyclovir 200 MG CAPSULE 400 MG PO (12:18)
== END 2022-05-13 13:48 | disposition home health service (06) | DRG 690 ==
LOC: HO.ED 12:15 → HO.EDOVER 14:51 → HO.S3 16:00
PROVIDERS: Physician Assistant; Admitting Provider Student in an Organized Health Care Education/Training Program; Emergency Provider Emergency Medicine; PCP Internal Medicine; Visit Provider Student in an Organized Health Care Education/Training Program
DX: N39.0 Urinary tract infection, site not specified (principal); C90.00 Multiple myeloma not having achieved remission; E83.51 Hypocalcemia; K21.9 Gastro-esophageal reflux disease without esophagitis; E03.9 Hypothyroidism, unspecified; F32.A Depression, unspecified; T45.1X5A Adverse effect of antineoplastic and immunosuppressive drugs, initial encounter; R19.7 Diarrhea, unspecified; Z20.822 Contact with and (suspected) exposure to COVID-19; F17.210 Nicotine dependence, cigarettes, uncomplicated; Z71.6 Tobacco abuse counseling; Z56.0 Unemployment, unspecified; Z79.82 Long term (current) use of aspirin; Z79.890 Hormone replacement therapy; Z79.899 Other long term (current) drug therapy
CPT/HCPCS: 36415; 71045; 80048; 80076; 82947; 83605; 83690; 83735; 84443; 84484; 85025; 85027; 87635; 93005; 96361; 96365; 99285; J0610; J0696; J1650

== ENCOUNTER 2022-10-26 11:52 | Outpatient (REF) | payer MEDICARE, MEDICAID, SELFPAY ==
--- NOTE | ~2022-10-26 | XR_ITS ---
EXAMINATION: XR MANDIBLE CLINICAL INFORMATION: Multiple myeloma COMPARISON: None TECHNIQUE: 4 views of the mandible were obtained. FINDINGS: There are no fractures or dislocations. Lucency projecting over the right calvarium measuring 0.9 cm is noted. A 6 mm lucency projecting over the right mandibular ramus is noted. XR/XR mandible min 4V IMPRESSION: 1. Lucency projecting over the right calvarium and right mandibular ramus may reflect myelomatous lesions. Further evaluation with CT is recommended. 2. No acute fracture or dislocation. If there is concern for radiographically occult fracture, CT is recommended.
== END 2022-10-26 11:53 | disposition home or self-care (01) ==
LOC: HO.XRAY 11:52
PROVIDERS: Visit Provider Internal Medicine Medical Oncology
DX: M87.180 Osteonecrosis due to drugs, jaw (principal)
CPT/HCPCS: 70110

== ENCOUNTER 2022-11-08 13:21 | Outpatient (REF) | payer MEDICARE, SELFPAY ==
[2022-11-08 13:38] LABS: MANUAL DIFF FLAG NO
[2022-11-08 13:56] LABS: Basophils Percent Auto 0.5 % (0-2); Eosinophils Absolute Auto 0.5 X10*3/uL (0.0-0.4); Eosinophils Percent Auto 5.2 % (0-4); Hematocrit 34.3 % (37.0-47.0); Hemoglobin 10.8 g/dl (12.0-16.0); Imm Gran Abs Auto 0.03 X10*3/uL (0.00-0.03); Imm Gran Pct Auto 0.3 % (0.0-0.4); Lymphocytes Absolute Auto 2.4 X10*3/uL (1.2-4.9); Lymphocytes Percent Auto 28.3 % (20-40); Mean Corpuscular HGB Conc 31.5 g/dl (31.0-35.0); Mean Corpuscular Hemoglobin 28.1 pg (27.0-33.0); Mean Corpuscular Volume 89.1 fL (80.0-98.0); Mean Platelet Volume 11.3 fL (9.4-12.3); Monocytes Percent Auto 11.5 % (2-11); Neutrophils Absolute Auto 4.7 x10*3/uL (2.0-8.3); Neutrophils Percent Auto 54.2 % (45-73); Platelet Count 236 X10*3/uL (160-400); Red Blood Count 3.85 X10*6/uL (4.20-5.50); Red Cell Distribution Width 16.5 % (11.0-16.0); White Blood Count 8.6 X10*3/uL (4.8-10.8)
[2022-11-08 14:57] LABS: Alanine Aminotransferase 13 U/L (0-31); Albumin Level 3.6 g/dL (3.5-5.0); Alkaline Phosphatase 103 U/L (39-117); Anion Gap 11 (12-20); Aspartate Amino Transferase 16 U/L (5-31); Bilirubin Total 0.4 mg/dL (0.0-1.0); Blood Urea Nitrogen 18 mg/dL (9-16); Calcium 8.5 mg/dL (8.4-10.2); Carbon Dioxide 25 mmol/L (22-29); Chloride 108 mmol/L (96-108); Estimated Glomerular Filt Rate 49; Glucose Random 79 mg/dL (60-115); Potassium 4.6 mmol/L (3.3-5.1); Sodium 139 mmol/L (135-145); Total Protein 6.8 g/dL (6.5-8.0)
[2022-11-12 14:43] LABS: Kappa Light Chain, Free Serum 63.4 mg/L (3.3-19.4); Kappa/Lambda Lt Ch Free Ratio 1.38 (0.26-1.65); Lambda Light Chain, Free Serum 45.8 mg/L (5.7-26.3)
[2022-11-13 15:58] LABS: IgA 464 mg/dL (70-320); IgG 1427 mg/dL (600-1540); IgM 64 mg/dL (50-300)
== END 2022-11-08 13:22 | disposition home or self-care (01) ==
LOC: HO.LAB 13:21
PROVIDERS: PCP Internal Medicine; Visit Provider Internal Medicine Medical Oncology
DX: C90.00 Multiple myeloma not having achieved remission (principal)
CPT/HCPCS: 36415; 80053; 82784; 83521; 85025; 86334

== ENCOUNTER 2022-11-14 16:21 | Outpatient (REF) | payer MEDICARE, SELFPAY | END 2022-11-14 16:22 | disposition home or self-care (01) | LOC: HO.CT 16:21 | PROVIDERS: PCP Internal Medicine; Visit Provider Internal Medicine Medical Oncology | DX: Z13.89 Encounter for screening for other disorder (principal) ==

== ENCOUNTER 2022-12-05 15:52 | Outpatient (REF) | payer MEDICARE, SELFPAY ==
--- NOTE | ~2022-12-05 | CT_ITS ---
EXAMINATION: CT facial bones w IV con CLINICAL INFORMATION: Evaluate mandible COMPARISON: Mandibular x-ray 10/26/2022 TECHNIQUE: Multidetector helical imaging was performed in the axial plane following the administration of 85 mL Omnipaque 350 with generation of coronal and sagittal reformatted images. This CT examination was performed using dose optimization techniques as appropriate, variously including the following: *Automated exposure control *Adjustment of mA and/or kV according to patient size (this includes techniques or standardized protocols for targeted exams where dose is matched to indication/reason for exam; i.e. 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 The frontal sinuses are clear. The frontoethmoidal recesses are patent. MAXILLARY SINUSES AND DRAINAGE PATHWAYS: The maxillary sinuses are clear. The maxillary ostia and infundibula are patent. ETHMOID SINUSES: The ethmoid air cells are clear. The ethmoid roofs appear symmetric and intact. SPHENOID SINUS AND DRAINAGE PATHWAYS: The sphenoid sinus is clear. The sphenoethmoidal recesses are patent. The carotid canals are normally covered by bone. NASAL PASSAGE: The nasal passages are clear. The osseous nasal septum remains midline. ORBITS: Normal appearance of the osseous orbits. The lamina papyracea are intact. No significant preseptal or retrobulbar edema. Normal appearance of the globes. Normal symmetric appearance of the extraocular musculature. No abnormalities of the intraconal or extraconal adipose tissue. Normal appearance of the optic nerve sheaths. Normal appearance of the lacrimal glands. No orbital fluid collections. No abnormalities of the orbital apices. TEMPOROMANDIBULAR JOINTS: The temporomandibular joints remain well aligned. Normal appearance of the temporomandibular joints. ADDITIONAL RELEVANT FINDINGS: No evidence of maxillofacial bone fractures. The zygomatic arches remain intact. No nasal bone fracture. No evidence of mandibular or maxillary fracture. The maxilla is edentulous. There is evidence of multiple anterior mandibular tooth extractions. Unerupted left mandibular third molar. Small periapical lucency involving a left mandibular incisor. The visualized mastoid air cells and middle ear cavities remain well aerated. Limited evaluation of the intracranial structures without significant abnormalities. The premaxillary, retromaxillary, pterygopalatine fossa, temporal fossa, and parapharyngeal adipose tissue is maintained. No demonstrated soft tissue abnormalities within the intrinsic tissues of the tongue. CT/CT facial bones w IV con IMPRESSION: No suspicious mandibular lesion.
[2022-12-05] MEDS: iohexoL 350 MG/ML 100 ML INFUS..BTL IV (16:17)
== END 2022-12-05 15:53 | disposition home or self-care (01) ==
LOC: HO.CT 15:52
PROVIDERS: PCP Internal Medicine; Visit Provider Internal Medicine Medical Oncology
DX: M27.9 Disease of jaws, unspecified (principal)
CPT/HCPCS: 70487; Q9967

== ENCOUNTER 2023-06-03 15:32 | Emergency (ER) | payer MEDICARE, SELFPAY ==
--- NOTE | ~2023-06-03 | CT_ITS ---
EXAMINATION: CT MAXILLOFACIAL WITH CONTRAST CLINICAL INFORMATION: Swelling in the bottom of mouth. History of multiple myeloma. COMPARISON: CT maxillofacial bones from 12/05/2022. TECHNIQUE: Multidetector helical imaging was performed in the axial plane without and following the administration of 85 mL of Omnipaque 350 intravenous contrast. Generation of coronal and sagittal reformatted images. This CT examination was performed using dose optimization techniques as appropriate, variously including the following: *Automated exposure control *Adjustment of mA and/or kV according to patient size (this includes techniques or standardized protocols for targeted exams where dose is matched to indication/reason for exam; i.e. 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 Otherwise, the frontal sinuses are clear. The frontoethmoidal recesses are patent. MAXILLARY SINUSES AND DRAINAGE PATHWAYS: Mild mucosal thickening of the maxillary sinuses. The maxillary ostia and infundibula are patent. ETHMOID SINUSES: Mild mucosal thickening of the ethmoid air cells. The ethmoid roofs appear symmetric and intact. SPHENOID SINUS AND DRAINAGE PATHWAYS: The sphenoid sinus is clear. The sphenoethmoidal recesses are patent. The carotid canals are normally covered by bone. NASAL PASSAGE: Mild mucosal thickening of the nasal passages. Mild rightward nasal septal deviation. ORBITS: Normal appearance of the osseous orbits. The lamina papyracea are intact. No significant preseptal or retrobulbar edema. Normal appearance of the globes. Normal symmetric appearance of the extraocular musculature. No abnormalities of the intraconal or extraconal adipose tissue. Normal appearance of the optic nerve sheaths. Normal appearance of the lacrimal glands. No orbital fluid collections. No abnormalities of the orbital apices. TEMPOROMANDIBULAR JOINTS: The temporomandibular joints remain well aligned. Normal appearance of the temporomandibular joints. ADDITIONAL RELEVANT FINDINGS: No evidence of maxillofacial bone fractures. The zygomatic arches remain intact. No nasal bone fracture. No evidence of mandibular or maxillary fracture. Persistent sockets of the mandibular incisors and right canine. Enamel erosion of the mandibular right 1st premolar. The maxillary teeth are absent. There is increasing geographic lucency within the symphyseal/right parasymphyseal region of the mandible. Mild soft tissue edema surrounding this region of the chin without demonstrated discrete drainable fluid collection. The visualized mastoid air cells and middle ear cavities remain well aerated. Limited evaluation of the intracranial structures without significant abnormalities. The premaxillary, retromaxillary, pterygopalatine fossa, temporal fossa, and parapharyngeal adipose tissue is maintained. No demonstrated soft tissue abnormalities within the intrinsic tissues of the tongue or floor of mouth. CT/CT facial bones w IV con IMPRESSION: Persistent sockets of the mandibular incisors and right canine. Enamel erosion of the mandibular right 1st premolar. Surrounding these odontogenic changes, there is increasing geographic lucency within the symphyseal/right parasymphyseal region of the mandible. Mild soft tissue edema surrounding this region of the chin without demonstrated discrete drainable fluid collection. This appearance is nonspecific but could be seen with avascular necrosis or early infectious etiologies in the appropriate clinical settings.
[2023-06-03 16:03] VITALS: BP 140/66; PULSE 55; RESP 18; TEMP 36.6; O2SAT 98; BMI 28.3
--- NOTE | 2023-06-03 16:04 | ED_ITS ---
HPI - General Adult General Chief complaint: General Medical Stated complaint: fever/swollen jaw Time Seen by Provider: 06/03/23 17:03 Source: patient Mode of arrival: ambulatory Limitations: no limitations History of Present Illness HPI narrative: Patient is here multiple myeloma, chronic dental caries sent by dentist for nonhealing caries suspecting osteonecrosis. Patient has no teeth in the lower mandible and taking courses of antibiotic with mouthwash without much response no fever no chills Related Data Home Medications Medication Instructions Recorded Confirmed levothyroxine 75 mcg tablet 75 mcg PO DAILY 10/27/20 06/03/23 aspirin 81 mg chewable tablet 81 mg PO DAILY 12/16/20 06/03/23 mirtazapine 30 mg tablet 30 mg PO BEDTIME 12/16/20 06/03/23 omeprazole 20 mg capsule,delayed 1 cap PO DAILY 05/11/22 06/03/23 release oxycodone 10 mg tablet 1 tab PO Q12H 05/11/22 06/03/23 fluoxetine 40 mg capsule 1 cap PO DAILY 05/12/22 06/03/23 amoxicillin 500 mg tablet 500 mg PO TID 01/24/23 04/08/23 Previous Rx's Medication Instructions Recorded calcium carbonate 250 mg-vitamin 2 tab PO BIDWM 60 days #240 tabs 05/13/22 D3 3.125 mcg (125 unit) tablet calcium carbonate 500 mg calcium 500 mg PO TID 30 days #90 tabs 05/13/22 (1,250 mg) tablet (Oyster Shell Calcium 500) cefuroxime axetil 500 mg tablet 500 mg PO BID #7 tabs 05/13/22 acyclovir 400 mg tablet 400 mg PO DAILY@1200 #90 tabs 10/08/22 lenalidomide 10 mg capsule 10 mg PO DAILY #14 caps 05/23/23 (Revlimid) clindamycin HCl 300 mg capsule 300 mg PO Q8H #30 caps 06/03/23 oxycodone 5 mg tablet 5 mg PO Q6H PRN pain #20 tabs 06/03/23 Allergies Allergy/AdvReac Type Severity Reaction Status Date / Time No Known Allergies Allergy Verified 06/03/23 14:42 [No Known Allergies*] Review of Systems Review of Systems: Yes all other systems are reviewed and are negative PMFSH Past Medical History Medical History Depression H/O gastroesophageal reflux (GERD) Hx of multiple myeloma Hypothyroidism Surgical History H/O tooth extraction History of bone marrow biopsy History of cholecystectomy Family History Family History Daughter Diabetes Thyroid cancer Social History Social History Household Members: Children Household Members Other:: adult son Housing: House Are you a primary hospice home care coordinator to a significant other at home: No Do you presently have visiting nurse or other home services: Yes (currently at home care place) Alcohol intake: former Patient Tobacco Use Status: Current everyday Tobacco user Tobacco use type: Cigarette Years Smoked: 20 Smoked in Last 30 Days: Yes e-Cigarette/Vaping Use: Never Used Second Hand Smoke Exposure: No Use of substances other than those prescribed or required for medical reasons: No Substance Use Type: Marijuana Advance Directives: Yes Advance Directives on File: Yes Advance Directives Date on File: 03/15/21 service: No Current occupational status: unemployed Physical Exam ED Vital Signs: Vital Signs - 24 hr 06/03/23 16:03 06/03/23 17:24 06/03/23 21:18 Temperature 98 F 98.7 F 99.2 F Pulse Rate 55 55 53 Respiratory Rate 18 16 18 Blood Pressure 140/66 H 113/73 141/70 H Pulse Oximetry 98 98 96 Oxygen Delivery Method Room Air Room Air BMI result Body Mass Index 28.3 Appearance: Alert. Oriented X3. No acute distress. Eyes: PERRLA, No Nystagmus ENT: Poor oral hygiene edentulous upper jaw Neck: Normal inspection. Neck supple. CVS: Normal heart rate and rhythm. Pulses normal. Respiratory: No respiratory distress. Equal air entry bilateral, no wheezi ng/rales/rhonchi Abdomen: Soft and nontender. Bowel sounds are present, Skin: Skin warm and dry. Normal skin color. Normal skin turgor. Extremities: No lower extremity edema. No calf tenderness Neuro: Oriented X 3. No motor deficit. Course Course Course Narrative: This is an RME: Additional HPI, ROS, PE not included below will be deferred to primary provider. 77 year old female presents w/ pain and swelling to the floor of mouth, tongue. Sent in by dentist to r/o osteonecrosis. Spoke to charge who will bring patient back. Medications Administered Discontinued Medications Generic Name Dose Route Start Last Admin Trade Name Elodia PRN Reason Stop Dose Admin Piperacillin Sod/Tazobactam 50 mls @ 100 mls/hr 06/03/23 17:39 06/03/23 19:00 Sod 3.375 gm/ Sodium Chloride IV 06/03/23 18:08 Infused ONCE ONE Infusion Iohexol 100 ml 06/03/23 18:02 06/03/23 18:02 Iohexol 350 Mg/Ml 100 Ml Infus..Btl IV 06/03/23 18:03 85 ml ONCE ONE Administration Oxycodone HCl 5 mg 06/03/23 21:34 06/03/23 22:15 Oxycodone Hcl Immed Release 5 Mg Tablet PO 06/03/23 21:35 5 mg ONCE ONE Administration Medical Decision Making Medical Decision Making [facility] Narrative: Patient with chronic gingivitis loss of teeth no fluid collection or signs of osteomyelitis. Patient was prescribed clindamycin advised to follow-up with dentist/maxillofacial surgeon Lab Data MDM Lab Attestation statement: I reviewed the patient's lab results. 06/03/23 17:09 06/03/23 17:09 Labs: Lab Results 06/03/23 06/03/23 06/03/23 Range/Units 17:08 17:09 17:09 WBC 9.2 (4.8-10.8) X10*3/uL RBC 4.07 L (4.20-5.50) X10*6/uL Hgb 11.4 L (12.0-16.0) g/dl Hct 35.7 L (37.0-47.0) % MCV 87.7 (80.0-98.0) fL MCH 28.0 (27.0-33.0) pg MCHC 31.9 (31.0-35.0) g/dl RDW 15.2 (11.0-16.0) % Plt Count 244 (160-400) X10*3/uL MPV 11.4 (9.4-12.3) fL Immature Gran % (Auto) 1.3 H (0.0-0.4) % Neut % (Auto) 57.2 (45-73) % Lymph % (Auto) 29.0 (20-40) % [place] % (Auto) 7.5 (2-11) % Eos % (Auto) 4.7 H (0-4) % Baso % (Auto) 0.3 (0-2) % Lymph # (Auto) 2.7 (1.2-4.9) X10*3/uL [place] # (Auto) 0.7 (0.1-1.2) X10*3/uL Eos # (Auto) 0.4 (0.0-0.4) X10*3/uL Baso # (Auto) 0.0 (0.0-0.2) X10*3/uL Abs Immat Gran (auto) 0.12 H (0.00-0.03) X10*3/uL Absolute Neuts (auto) 5.2 (2.0-8.3) x10*3/uL Absolute Nucleated RBC 0.000 (0.0-0.012) X10*3/uL Nucleated RBC % (auto) 0.0 (0.0-0.2) /100WBC ESR 81 H (0-20) MM/HR Sodium (135-145) mmol/L Potassium (3.3-5.1) mmol/L Chloride (96-108) mmol/L Carbon Dioxide (22-29) mmol/L Anion Gap (12-20) BUN (9-16) mg/dL Creatinine (0.5-1.4) mg/dL Estim Creat Clear Calc Estimated GFR Random Glucose (60-115) mg/dL Lactic Acid 1.0 (0.5-2.0) mmol/L Calcium (8.4-10.2) mg/dL Magnesium (1.6-2.6) mg/dL Total Bilirubin (0.0-1.0) mg/dL AST (5-31) U/L ALT (0-31) U/L Alkaline Phosphatase (39-117) U/L Total Creatine Kinase (26-140) U/L C-Reactive Protein (< or = 0.50) mg/dL Total Protein (6.5-8.0) g/dL Albumin (3.5-5.0) g/dL 06/03/23 06/03/23 Range/Units 17:09 17:09 WBC (4.8-10.8) X10*3/uL RBC (4.20-5.50) X10*6/uL Hgb (12.0-16.0) g/dl Hct (37.0-47.0) % MCV (80.0-98.0) fL MCH (27.0-33.0) pg MCHC (31.0-35.0) g/dl RDW (11.0-16.0) % Plt Count (160-400) X10*3/uL MPV (9.4-12.3) fL Immature Gran % (Auto) (0.0-0.4) % Neut % (Auto) (45-73) % Lymph % (Auto) (20-40) % [place] % (Auto) (2-11) % Eos % (Auto) (0-4) % Baso % (Auto) (0-2) % Lymph # (Auto) (1.2-4.9) X10*3/uL [place] # (Auto) (0.1-1.2) X10*3/uL Eos # (Auto) (0.0-0.4) X10*3/uL Baso # (Auto) (0.0-0.2) X10*3/uL Abs Immat Gran (auto) (0.00-0.03) X10*3/uL Absolute Neuts (auto) (2.0-8.3) x10*3/uL Absolute Nucleated RBC (0.0-0.012) X10*3/uL Nucleated RBC % (auto) (0.0-0.2) /100WBC ESR (0-20) MM/HR Sodium 141 (135-145) mmol/L Potassium 4.1 (3.3-5.1) mmol/L Chloride 105 (96-108) mmol/L Carbon Dioxide 25 (22-29) mmol/L Anion Gap 15 (12-20) BUN 18 H (9-16) mg/dL Creatinine 1.25 (0.5-1.4) mg/dL Estim Creat Clear Calc 36.7 Estimated GFR 41 Random Glucose 77 (60-115) mg/dL Lactic Acid (0.5-2.0) mmol/L Calcium 9.6 (8.4-10.2) mg/dL Magnesium 1.7 (1.6-2.6) mg/dL Total Bilirubin 0.4 (0.0-1.0) mg/dL AST 22 (5-31) U/L ALT 20 (0-31) U/L Alkaline Phosphatase 114 (39-117) U/L Total Creatine Kinase 64 (26-140) U/L C-Reactive Protein 10.61 H (< or = 0.50) mg/dL Total Protein 7.8 (6.5-8.0) g/dL Albumin 3.7 (3.5-5.0) g/dL Radiology Impression Discussion of test interpretation with radiology: I have reviewed the radiologist's reading. Radiologist Impression: CT/CT facial bones w IV con IMPRESSION: Persistent sockets of the mandibular incisors and right canine. Enamel erosion of the mandibular right 1st premolar. Surrounding these odontogenic changes, there is increasing geographic lucency within the symphyseal/right parasymphyseal region of the mandible. Mild soft tissue edema surrounding this region of the chin without demonstrated discrete drainable fluid collection. ? This appearance is nonspecific but could be seen with avascular necrosis or early infectious etiologies in the appropriate clinical settings. Discharge Plan Discharge Clinical Impression: Infection of mandible Patient Disposition: Home, Self-Care Instructions: Dental Abscess (ED), Gingivostomatitis (ED) Additional Instructions: Follow-up with dentist/maxillofacial surgeon as outpatient Take antibiotic as prescribed Pain medication as prescribed Prescriptions: New clindamycin HCl 300 mg capsule 300 mg PO Q8H Qty: 30 0RF oxycodone 5 mg tablet 5 mg PO Q6H PRN (Reason: pain) Qty: 20 0RF Rx Instructions: Partial Fill upon patient request. No Action acyclovir 400 mg tablet 400 mg PO DAILY@1200 Qty: 90 6RF levothyroxine 75 mcg tablet 75 mcg PO DAILY amoxicillin 500 mg Tablet 500 mg PO TID lenalidomide [Revlimid] 10 mg Capsule 10 mg PO DAILY Qty: 14 0RF Rx Instructions: swallow whole with glass of water; do not open, crush, chew , break, or d issolve [id number] mirtazapine 30 mg tablet 30 mg PO BEDTIME aspirin 81 mg tablet,chewable 81 mg PO DAILY omeprazole 20 mg capsule,delayed release(DR/EC) 1 cap PO DAILY oxycodone 10 mg tablet 1 tab PO Q12H fluoxetine 40 mg capsule 1 cap PO DAILY calcium carbonate [Oyster Shell Calcium 500] 500 mg calcium (1,250 mg) Tablet 500 mg PO TID 30 Days Qty: 90 0RF calcium carbonate-vitamin D3 250 mg-3.125 mcg (125 unit) Tablet 2 tab PO BIDWM 60 Days Qty: 240 0RF cefuroxime axetil 500 mg tablet 500 mg PO BID Qty: 7 0RF Interventions: ED Discharge Assessment Last Done: 06/03/23 22:39 Discharge Date/Time: 06/03/23 22:40
[2023-06-03 17:19] LABS: MANUAL DIFF FLAG NO
[2023-06-03 17:24] VITALS: BP 113/73; PULSE 55; RESP 16; TEMP 37.1; O2SAT 98
[2023-06-03 17:25] LABS: Basophils Percent Auto 0.3 % (0-2); Eosinophils Absolute Auto 0.4 X10*3/uL (0.0-0.4); Eosinophils Percent Auto 4.7 % (0-4); Hematocrit 35.7 % (37.0-47.0); Hemoglobin 11.4 g/dl (12.0-16.0); Imm Gran Abs Auto 0.12 X10*3/uL (0.00-0.03); Imm Gran Pct Auto 1.3 % (0.0-0.4); Lymphocytes Absolute Auto 2.7 X10*3/uL (1.2-4.9); Mean Corpuscular HGB Conc 31.9 g/dl (31.0-35.0); Mean Corpuscular Volume 87.7 fL (80.0-98.0); Mean Platelet Volume 11.4 fL (9.4-12.3); Monocytes Absolute Auto 0.7 X10*3/uL (0.1-1.2); Monocytes Percent Auto 7.5 % (2-11); Neutrophils Absolute Auto 5.2 x10*3/uL (2.0-8.3); Neutrophils Percent Auto 57.2 % (45-73); Platelet Count 244 X10*3/uL (160-400); Red Blood Count 4.07 X10*6/uL (4.20-5.50); Red Cell Distribution Width 15.2 % (11.0-16.0); White Blood Count 9.2 X10*3/uL (4.8-10.8)
[2023-06-03 17:40] LABS: C Reactive Protein 10.61 mg/dL (< or = 0.50)
--- NOTE | 2023-06-03 17:41 | PC.NURSE ---
pt a&ox3, respirations equal and unlabored. skin appropriate for skin color. pt reporting pain in jaw. mucous membranes moist and pink with severe tooth decay on lower front and multiple other decay spots throughout the mouth.
[2023-06-03 17:42] LABS: Alanine Aminotransferase 20 U/L (0-31); Albumin Level 3.7 g/dL (3.5-5.0); Alkaline Phosphatase 114 U/L (39-117); Anion Gap 15 (12-20); Aspartate Amino Transferase 22 U/L (5-31); Bilirubin Total 0.4 mg/dL (0.0-1.0); Blood Urea Nitrogen 18 mg/dL (9-16); Calcium 9.6 mg/dL (8.4-10.2); Carbon Dioxide 25 mmol/L (22-29); Chloride 105 mmol/L (96-108); Creatinine Clr Calc Pharmacy 36.7; Estimated Glomerular Filt Rate 41; Glucose Random 77 mg/dL (60-115); Magnesium 1.7 mg/dL (1.6-2.6); Potassium 4.1 mmol/L (3.3-5.1); Sodium 141 mmol/L (135-145); Total Protein 7.8 g/dL (6.5-8.0)
[2023-06-03] MEDS: iohexoL 350 MG/ML 100 ML INFUS..BTL IV (18:02)
[2023-06-03] MEDS: Piperacillin Sodium/Tazobactam 3.375 GM in 0.9 % Sodium Chloride 50 ML IV (18:12)
[2023-06-03 18:19] LABS: Erythrocyte Sedimentation Rate 81 MM/HR (0-20)
[2023-06-03 21:18] VITALS: BP 141/70; PULSE 53; RESP 18; TEMP 37.3; O2SAT 96
[2023-06-03] MEDS: oxyCODONE HCl Immed Release 5 MG TABLET PO (22:15)
--- NOTE | 2023-06-03 22:36 | PC.NURSE ---
iv removed at time of discharge. pt medicated according to mar. pt ambulatory at discharge. pt daughter at bedside. produce manager utilized. pt provided with discharge packet. pt verbalized understanding of discharge plan
== END 2023-06-03 22:40 | disposition home or self-care (01) ==
PROVIDERS: Physician Assistant; Emergency Provider Internal Medicine; PCP Internal Medicine
DX: M27.2 Inflammatory conditions of jaws (principal); R50.9 Fever, unspecified; K02.9 Dental caries, unspecified; Z79.899 Other long term (current) drug therapy; F17.210 Nicotine dependence, cigarettes, uncomplicated; Z71.6 Tobacco abuse counseling
CPT/HCPCS: 36415; 70487; 80053; 82550; 83605; 83735; 85025; 85652; 86140; 87040; 96365; 99284; J2543; Q9967

== ENCOUNTER 2023-08-26 21:04 | Emergency (ER) | payer MEDICARE, SELFPAY ==
--- NOTE | ~2023-08-26 | CT_ITS ---
EXAMINATION: CT HEAD WITHOUT CONTRAST CLINICAL INFORMATION: Trauma. Patient on blood thinners. COMPARISON: None available. TECHNIQUE: Contiguous axial imaging was performed from the skull base to vertex without intravenous administration of contrast. This CT examination was performed using dose optimization techniques as appropriate, variously including the following: *Automated exposure control *Adjustment of mA and/or kV according to patient size (this includes techniques or standardized protocols for targeted exams where dose is matched to indication/reason for exam; i.e. extremities or head) *Use of iterative reconstruction technique DLP: 885 mGy-cm FINDINGS: There is mild cerebral volume loss with prominence of the lateral, and third ventricles. The cortical sulci are widened appropriately. The fourth ventricle and basal cisterns are normally outlined. There is mild bilateral periventricular and central white matter diminished hemorrhage or midline shift. Cervical spine: There is straightening of the expected cervical spine curvature. The disc spaces are maintained. The bone localization within normal limits. The vertebral body heights are maintained. The soft tissues and osteophytic hypertrophic change. There is no significant spinal canal and neuroforaminal narrowing. The soft tissues are unremarkable. The visualized upper lung clemons are clear. CT/CT head/brain wo IV con IMPRESSION: Acute intracranial abnormality. No significant abnormality of the cervical spine.
--- NOTE | ~2023-08-26 | CT_ITS ---
EXAMINATION: CT HEAD WITHOUT CONTRAST CLINICAL INFORMATION: Trauma. Patient on blood thinners. COMPARISON: None available. TECHNIQUE: Contiguous axial imaging was performed from the skull base to vertex without intravenous administration of contrast. This CT examination was performed using dose optimization techniques as appropriate, variously including the following: *Automated exposure control *Adjustment of mA and/or kV according to patient size (this includes techniques or standardized protocols for targeted exams where dose is matched to indication/reason for exam; i.e. extremities or head) *Use of iterative reconstruction technique DLP: 885 mGy-cm FINDINGS: There is mild cerebral volume loss with prominence of the lateral, and third ventricles. The cortical sulci are widened appropriately. The fourth ventricle and basal cisterns are normally outlined. There is mild bilateral periventricular and central white matter diminished hemorrhage or midline shift. Cervical spine: There is straightening of the expected cervical spine curvature. The disc spaces are maintained. The bone localization within normal limits. The vertebral body heights are maintained. The soft tissues and osteophytic hypertrophic change. There is no significant spinal canal and neuroforaminal narrowing. The soft tissues are unremarkable. The visualized upper lung clemons are clear. CT/CT cervical spine wo IV con IMPRESSION: Acute intracranial abnormality. No significant abnormality of the cervical spine.
[2023-08-26 21:20] VITALS: BP 135/71; PULSE 56; RESP 16; TEMP 36.7; O2SAT 98; BMI 29.5
[2023-08-26 21:54] VITALS: BP 148/65; PULSE 52; PULSE 55; RESP 12; O2SAT 97
--- NOTE | 2023-08-26 21:59 | PC.NURSE ---
Addendum entered by Christian Stoll 08/26/23 22:02: Dr. dickerson aware. Original Note: pt states she lost her balace approx 1700 today and fell unwitnessed; +headstrike/loc states she saw the clock and believes unconscious x 15 minutes; on ground for approx 25 minutes. takes aspirin daily. denies dizziness/cp/sob/n/v. reporting 05/04 RODRIGUEZ.
--- NOTE | 2023-08-26 22:07 | ECG_ITS ---
Test Reason : FALL Blood Pressure : / mmHG Vent. Rate : 049 BPM Atrial Rate : 049 BPM P-R Int : 134 ms QRS Dur : 096 ms QT Int : 546 ms P-R-T Axes : 022 013 011 degrees QTc Int : [address] & T wave abnormality, consider anterior ischemia Prolonged QT Abnormal ECG When compared with ECG of 11-MAY-2022 10:01, No significant change was found Referred By: Whitney Shi Electronically Signed By:TYRONE VIVAR
--- NOTE | 2023-08-26 22:11 | ED_ITS ---
HPI - Fall General Chief Complaint: Fall Stated Complaint: Fall/Disorentated Time Seen by Provider: 08/26/23 22:02 Source: patient and family Mode of arrival: ambulatory Limitations: no limitations History of Present Illness HPI Narrative: Patient comes to the emergency room accompanied by her family. Earlier today, patient states that she was standing in the kitchen getting ready for dinner. Patient states that she took a few steps backwards, felt unsteady on her feet and fell backwards landed on her back hitting the posterior aspect of her head. Patient states that she did not pass out, remembers everything, patient takes baby aspirin. Patient's family does not know if she takes any blood thinners. Patient denies headache, complaining of localized pain in the scalp and mild pain in the back Related Data Home Medications Medication Instructions Recorded Confirmed levothyroxine 75 mcg tablet 75 mcg PO DAILY 10/27/20 06/03/23 aspirin 81 mg chewable tablet 81 mg PO DAILY 12/16/20 06/03/23 mirtazapine 30 mg tablet 30 mg PO BEDTIME 12/16/20 06/03/23 omeprazole 20 mg capsule,delayed 1 cap PO DAILY 05/11/22 06/03/23 release oxycodone 10 mg tablet 1 tab PO Q12H 05/11/22 06/03/23 fluoxetine 40 mg capsule 1 cap PO DAILY 05/12/22 06/03/23 amoxicillin 500 mg tablet 500 mg PO TID 01/24/23 04/08/23 Previous Rx's Medication Instructions Recorded calcium carbonate 250 mg-vitamin 2 tab PO BIDWM 60 days #240 tabs 05/13/22 D3 3.125 mcg (125 unit) tablet calcium carbonate 500 mg calcium 500 mg PO TID 30 days #90 tabs 05/13/22 (1,250 mg) tablet (Oyster Shell Calcium 500) cefuroxime axetil 500 mg tablet 500 mg PO BID #7 tabs 05/13/22 acyclovir 400 mg tablet 400 mg PO DAILY@1200 #90 tabs 10/08/22 clindamycin HCl 300 mg capsule 300 mg PO Q8H #30 caps 06/03/23 oxycodone 5 mg tablet 5 mg PO Q6H PRN pain #20 tabs 06/03/23 lenalidomide 10 mg capsule 10 mg PO DAILY #14 caps 06/07/23 (Revlimid) lenalidomide 10 mg capsule 10 mg PO DAILY #14 caps 06/14/23 (Revlimid) lenalidomide 10 mg capsule 10 mg PO DAILY #14 caps 06/14/23 (Revlimid) lenalidomide 10 mg capsule 10 mg PO DAILY #14 caps 07/23/23 (Revlimid) Allergies Allergy/AdvReac Type Severity Reaction Status Date / Time No Known Allergies Allergy Verified 06/03/23 14:42 [No Known Allergies*] Review of Systems 2 Review of Systems: Constitutional : No Weight loss, No Fever, No Chills, No Night Sweats, No Fatigue, No Malaise ENT/Mouth : No Hearing loss, No Ear Pain, No Nasal Congestion, No Sinus Pain, No Hoarseness, No sore throat, No Rhinorrhea, No Swallowing Difficulty Eyes: No Eye Pain, No Swelling, No Redness, No Foreign Body, No Discharge, No Vision Changes Cardiovascular : No Chest Pain, No SOB, No Dyspnea on Exertion, No Orthopnea, No Edema, No Palpitations Respiratory : No Cough, No Sputum, No Wheezing, No Smoke Exposure, No Dyspnea Gastrointestinal : No Nausea, No Vomiting, No Diarrhea, No Constipation, No abdominal Pain, No Hematochezia, No Melena Genitourinary : no irregular bleeding, No Dysuria, No Urinary Frequency, No Hematuria, No Urinary Incontinence, No Urgency, No Flank Pain, No Urinary Flow Changes, No Hesitancy Musculoskeletal : Complaint of mild posterior neck pain No joint pain, No Myalgias, No Joint Swelling Skin : No Skin Lesions, No rash Neuro : No Weakness, No Numbness, No Paresthesias, No Loss of Consciousness, No Dizziness, No Headache Psych : No Anxiety/Panic, No Depression, No SI/HI/AH/VH, No Social Issues, Heme/Lymph: No Bruising, No Bleeding,No Lymphadenopathy Endocrine : No Polyuria, No Polydipsia, No Temperature Intolerance PMFSH Past Medical History Medical History Depression H/O gastroesophageal reflux (GERD) Hx of multiple myeloma Hypothyroidism Surgical History H/O tooth extraction History of bone marrow biopsy History of cholecystectomy Family History Family History Daughter Diabetes Thyroid cancer Social History Social History Household Members: Children Household Members Other:: adult son Housing: House Are you a primary primary care coordinator to a significant other at home: No Do you presently have visiting nurse or other home services: Yes (currently at home care place) Alcohol intake: former Patient Tobacco Use Status: Current everyday Tobacco user Tobacco use type: Cigarette Years Smoked: 20 e-Cigarette/Vaping Use: Never Used Second Hand Smoke Exposure: No Substance Use Type: Marijuana Advance Directives: Yes Advance Directives on File: Yes Advance Directives Date on File: 03/15/21 service: No Current occupational status: unemployed Physical Exam 2 Vital Signs: Vital Signs: Last Vital Signs Temp 98.0 F 08/26/23 21:20 Pulse 48 L 08/27/23 01:22 Resp 12 08/27/23 01:22 BP 190/94 H 08/27/23 01:22 Pulse Ox 99 08/27/23 01:22 O2 Del Method Room Air 08/27/23 01:22 BMI result Body Mass Index 29.5 Const: Other: Appearance: Alert. Oriented X3. No acute distress. Well-appearing Eyes: Pupils equal, round and reactive to light. ENT: Pharynx normal. Neck: Normal inspection. Neck supple. No lymph nodes noted. No crepitus, no C- spine tenderness, no palpable step-offs, normal range of motion CVS: Normal heart rate and rhythm. Pulses normal. Normal S1 and S2 Respiratory: No respiratory distress. Breath sounds normal. No Wheezing. No rales Abdomen: Soft and nontender. No rigidity. No distention. Skin: Skin warm and dry. Normal skin color. Normal skin turgor. No ecchymosis, no abrasions, no lacerations Extremities: No lower extremity edema. No Lacerations. No Rash Neuro: Oriented X 3. No motor deficit. No sensory deficit. Moving all extremities. No slurred speech. CN 2 through 12 grossly intact Psych: calm, cooperative, normal affect Medical Decision Making Medical Decision Making MDM Narrative: -my interpretation of EKG: Sinus bradycardia, 149, no ST segment depression or elevation, nonspecific old T-wave inversion in V3 V4, QTC 493, no EKG changes from April of 2022 -patient denies feeling weak, patient states that likely fell from a mechanical fall. -urinalysis negative Differential Diagnosis Differential Diagnoses: The differential diagnosis associated with the presentation includes (Mechanical fall weakness, UTI) Admission/Observation Consideration of admission/observation: Escalation of care including admission/observation considered (On arrival to the emergency room, initially admission was considered) Lab Data MDM Lab Attestation statement: I reviewed the patient's lab results. 08/26/23 22:30 08/26/23 22:30 Labs: Lab Results 08/26/23 08/27/23 Range/Units 22:30 01:42 WBC 9.8 (4.8-10.8) X10*3/uL RBC 3.61 L (4.20-5.50) X10*6/uL Hgb 10.2 L (12.0-16.0) g/dl Hct 31.8 L (37.0-47.0) % MCV 88.1 (80.0-98.0) fL MCH 28.3 (27.0-33.0) pg MCHC 32.1 (31.0-35.0) g/dl RDW 16.0 (11.0-16.0) % Plt Count 254 (160-400) X10*3/uL MPV 10.9 (9.4-12.3) fL Immature Gran % (Auto) 0.4 (0.0-0.4) % Neut % (Auto) 65.8 (45-73) % Lymph % (Auto) 25.1 (20-40) % [place] % (Auto) 6.6 (2-11) % Eos % (Auto) 1.2 (0-4) % Baso % (Auto) 0.9 (0-2) % Lymph # (Auto) 2.5 (1.2-4.9) X10*3/uL [place] # (Auto) 0.6 (0.1-1.2) X10*3/uL Eos # (Auto) 0.1 (0.0-0.4) X10*3/uL Baso # (Auto) 0.1 (0.0-0.2) X10*3/uL Abs Immat Gran (auto) 0.04 H (0.00-0.03) X10*3/uL Absolute Neuts (auto) 6.4 (2.0-8.3) x10*3/uL Absolute Nucleated RBC 0.000 (0.0-0.012) X10*3/uL Nucleated RBC % (auto) 0.0 (0.0-0.2) /100WBC Sodium 140 (135-145) mmol/L Potassium 3.3 (3.3-5.1) mmol/L Chloride 104 (96-108) mmol/L Carbon Dioxide 25 (22-29) mmol/L Anion Gap 14 (12-20) BUN 17 H (9-16) mg/dL Creatinine 1.07 (0.5-1.4) mg/dL Estim Creat Clear Calc 43.8 Estimated GFR 50 Random Glucose 93 (60-115) mg/dL Calcium 8.8 D (8.4-10.2) mg/dL Total Bilirubin 0.3 (0.0-1.0) mg/dL Direct Bilirubin 0.1 (0.0-0.5) mg/dL AST 28 (5-31) U/L ALT 21 (0-31) U/L Alkaline Phosphatase 119 H (39-117) U/L Troponin I High Sens 13.0 (<3.5-17.0) ng/L Total Protein 7.5 (6.5-8.0) g/dL Albumin 3.5 (3.5-5.0) g/dL Urine Color Yellow Urine Appearance Clear Urine pH 6.0 (5.0-9.0) Ur Specific [place] 1.010 (1.005-1.025) Urine Protein 30 (1+) H (Neg-Trace) mg/dL Urine Glucose (UA) Negative (Negative) mg/dL Urine Ketones Negative (Negative) mg/dL Urine Blood Negative (Negative) Urine Nitrite Negative (Negative) Ur Leukocyte Esterase Negative (Negative) Urine RBC 0-2 (0-2) /HPF Urine WBC 0-5 (0-5) /HPF Ur Squamous Epith Cells 0-2 (0-2) /HPF Urine Bacteria Trace (None Seen) Hyaline Casts 0-2 (0-2) /LPF Independent Interpretation I performed an independent interpretation of an: CT Scan Radiology Impression Discussion of test interpretation with radiology: I have reviewed the radiologist's reading. Radiologist Impression: FINDINGS: There is mild cerebral volume loss with prominence of the lateral, and third ventricles. The cortical sulci are widened appropriately. The fourth ventricle and basal cisterns are normally outlined. There is mild bilateral periventricular and central white matter diminished hemorrhage or midline shift. Cervical spine: There is straightening of the expected cervical spine curvature. The disc spaces are maintained. The bone localization within normal limits. The vertebral body heights are maintained. The soft tissues and osteophytic hypertrophic change. There is no significant spinal canal and neuroforaminal narrowing. The soft tissues are unremarkable. The visualized upper lung clemons are clear. CT/CT cervical spine wo IV con IMPRESSION: Acute intracranial abnormality. No significant abnormality of the cervical spine. Discharge Plan Discharge Clinical Impression: Fall, Contusion Patient Disposition: Home, Self-Care Instructions: Fall Prevention for Older Adults (ED) Additional Instructions: Please follow-up with your primary care physician tomorrow. If you have any worsening or new symptoms, please return to the emergency room or call 911 Prescriptions: No Action acyclovir 400 mg tablet 400 mg PO DAILY@1200 Qty: 90 6RF levothyroxine 75 mcg tablet 75 mcg PO DAILY amoxicillin 500 mg Tablet 500 mg PO TID lenalidomide [Revlimid] 10 mg Capsule 10 mg PO DAILY Qty: 14 0RF Rx Instructions: swallow whole with glass of water; do not open, crush, chew , break, or dissolve [id number] lenalidomide [Revlimid] 10 mg Capsule 10 mg PO DAILY Qty: 14 4RF Rx Instructions: swallow whole with glass of water; do not open, crush, chew , break, or dissolve. AUTHORIZATION NUMBER: [id number]. lenalidomide [Revlimid] 10 mg Capsule 10 mg PO DAILY Qty: 14 0RF Rx Instructions: swallow whole with glass of water; do not open, crush, chew , break, or dissolve. [id number] lenalidomide [Revlimid] 10 mg Capsule 10 mg PO DAILY Qty: 14 0RF Rx Instructions: swallow whole with glass of water; do not open, crush, chew , break, or dissolve. Authorization number: [id number]. mirtazapine 30 mg tablet 30 mg PO BEDTIME aspirin 81 mg tablet,chewable 81 mg PO DAILY omeprazole 20 mg capsule,delayed release(DR/EC) 1 cap PO DAILY oxycodone 10 mg tablet 1 tab PO Q12H fluoxetine 40 mg capsule 1 cap PO DAILY calcium carbonate [Oyster Shell Calcium 500] 500 mg calcium (1,250 mg) Tablet 500 mg PO TID 30 Days Qty: 90 0RF calcium carbonate-vitamin D3 250 mg-3.125 mcg (125 unit) Tablet 2 tab PO BIDWM 60 Days Qty: 240 0RF cefuroxime axetil 500 mg tablet 500 mg PO BID Qty: 7 0RF clindamycin HCl 300 mg capsule 300 mg PO Q8H Qty: 30 0RF oxycodone 5 mg tablet 5 mg PO Q6H PRN (Reason: pain) Qty: 20 0RF Rx Instructions: Partial Fill upon patient request.
[2023-08-26 22:28] VITALS: BP 147/69; BP 149/67; BP 157/71; PULSE 49; PULSE 52; PULSE 53
--- NOTE | 2023-08-26 22:30 | MHC.EDTECH ---
This tech assumed care of this pt. pt changed into hospital gown and placed on monitor tech. EKG done and handed to provider. red fall risk wrist band and red socks put on pt
--- NOTE | 2023-08-26 22:33 | PC.NURSE ---
iv established. orthos as documented by tech.
[2023-08-26 22:34] LABS: Basophils Absolute Auto 0.1 X10*3/uL (0.0-0.2); Basophils Percent Auto 0.9 % (0-2); Eosinophils Absolute Auto 0.1 X10*3/uL (0.0-0.4); Eosinophils Percent Auto 1.2 % (0-4); Hematocrit 31.8 % (37.0-47.0); Hemoglobin 10.2 g/dl (12.0-16.0); Imm Gran Abs Auto 0.04 X10*3/uL (0.00-0.03); Imm Gran Pct Auto 0.4 % (0.0-0.4); Lymphocytes Absolute Auto 2.5 X10*3/uL (1.2-4.9); Lymphocytes Percent Auto 25.1 % (20-40); MANUAL DIFF FLAG NO; Mean Corpuscular HGB Conc 32.1 g/dl (31.0-35.0); Mean Corpuscular Hemoglobin 28.3 pg (27.0-33.0); Mean Corpuscular Volume 88.1 fL (80.0-98.0); Mean Platelet Volume 10.9 fL (9.4-12.3); Monocytes Absolute Auto 0.6 X10*3/uL (0.1-1.2); Monocytes Percent Auto 6.6 % (2-11); Neutrophils Absolute Auto 6.4 x10*3/uL (2.0-8.3); Neutrophils Percent Auto 65.8 % (45-73); Platelet Count 254 X10*3/uL (160-400); Red Blood Count 3.61 X10*6/uL (4.20-5.50); White Blood Count 9.8 X10*3/uL (4.8-10.8)
[2023-08-26 22:49] LABS: Alanine Aminotransferase 21 U/L (0-31); Albumin Level 3.5 g/dL (3.5-5.0); Alkaline Phosphatase 119 U/L (39-117); Anion Gap 14 (12-20); Aspartate Amino Transferase 28 U/L (5-31); Bilirubin Direct 0.1 mg/dL (0.0-0.5); Bilirubin Total 0.3 mg/dL (0.0-1.0); Blood Urea Nitrogen 17 mg/dL (9-16); Calcium 8.8 mg/dL (8.4-10.2); Carbon Dioxide 25 mmol/L (22-29); Chloride 104 mmol/L (96-108); Creatinine Clr Calc Pharmacy 43.8; Estimated Glomerular Filt Rate 50; Glucose Random 93 mg/dL (60-115); Potassium 3.3 mmol/L (3.3-5.1); Sodium 140 mmol/L (135-145); Total Protein 7.5 g/dL (6.5-8.0)
--- NOTE | 2023-08-27 01:20 | PC.NURSE ---
pt ambulate to bathroom with this RN. Pt has slightly unsteady gait, frequently relying on this RN for balance. Pt was able to void and ambulate back with minimal issue
[2023-08-27 01:22] VITALS: BP 190/94; PULSE 48; RESP 12; O2SAT 99
--- NOTE | 2023-08-27 01:43 | PC.NURSE ---
pt reported unable to urinate; bladder scan showed >414mL urine. pt stated now need to urinate and ambulatory to bathroom with minimal assistance, steady gait. UA send to lab. pt had BM as well. return to stretcher with no difficulty. call means within reach.
[2023-08-27 01:48] LABS: Appearance Urine Clear; Color Urine Yellow; Glucose Urine UA Negative (Negative); Leukocyte Esterase Urine Negative (Negative); Nitrite Urine Negative (Negative); UMIC TRIGGER UACC YES; Urine Blood Negative (Negative); Urine Ketones Negative (Negative); Urine Protein 30 (1+) mg/dL (Neg-Trace)
[2023-08-27 01:51] LABS: Bacteria Urine Trace (None Seen); Hyaline Casts Urine 0-2 /LPF (0-2); RBC Urine 0-2 /HPF (0-2); Squamous Epithelial Cell Urine 0-2 /HPF (0-2); WBC Urine 0-5 /HPF (0-5)
[2023-08-27 01:59] LABS: Amphetamine Screen Urine Not Detected (Not Detect); Barbiturates, Urine Not Detected (Not Detect); Benzodiazepines Screen Urine Not Detected (Not Detect); Cannabinoid Screen Urine POSITIVE (Not Detect); Cocaine Screen Urine Not Detected (Not Detect); Fentanyl, urine Not Detected (Not Detect); Opiate Screen Urine Not Detected (Not Detect); Phencyclidine Screen Urine Not Detected (Not Detect)
== END 2023-08-27 02:25 | disposition home or self-care (01) ==
PROVIDERS: Emergency Provider Emergency Medicine; PCP Internal Medicine
DX: S00.93XA Contusion of unspecified part of head, initial encounter (principal); R00.1 Bradycardia, unspecified; R51.9 Headache, unspecified; M54.2 Cervicalgia; F17.210 Nicotine dependence, cigarettes, uncomplicated; W01.10XA Fall on same level from slipping, tripping and stumbling with subsequent striking against unspecified object, initial encounter; Y93.9 Activity, unspecified; Y92.009 Unspecified place in unspecified non-institutional (private) residence as the place of occurrence of the external cause; Y99.9 Unspecified external cause status; Z79.899 Other long term (current) drug therapy; Z71.6 Tobacco abuse counseling
CPT/HCPCS: 36415; 70450; 72125; 80048; 80076; 80307; 81001; 84484; 85025; 93005; 99284; 99285

== ENCOUNTER 2023-11-27 13:41 | Emergency (ER) | payer MEDICARE, MEDICAID, SELFPAY ==
[2023-11-27 13:49] VITALS: BP 99/79; PULSE 79; O2SAT 98; BMI 25.4
[2023-11-27 13:56] VITALS: BP 136/51; PULSE 65; RESP 16; TEMP 36.9; O2SAT 98
--- NOTE | 2023-11-27 14:27 | ED.CHESTPAIN ---
HPI - Chest Pain General Chief Complaint: Chest Pain Stated Complaint: DIFFICULTY BREATHING History of Present Illness HPI narrative: 78-year-old female with a history of COPD history of multiple myeloma long history of smoking. Presented today with having coughing congestion upper respiratory symptoms. Patient is max needed for COVID. Now is having chest pain in the left chest area when he coughs. Worse with deep breath. Patient from home. There is no fever no chills. There is no change in diet. Feels generalized malaise. Related Data Home Medications Medication Instructions Recorded Confirmed levothyroxine 75 mcg tablet 75 mcg PO DAILY 10/27/20 06/03/23 aspirin 81 mg chewable tablet 81 mg PO DAILY 12/16/20 06/03/23 mirtazapine 30 mg tablet 30 mg PO BEDTIME 12/16/20 06/03/23 omeprazole 20 mg capsule,delayed 1 cap PO DAILY 05/11/22 06/03/23 release oxycodone 10 mg tablet 1 tab PO Q12H 05/11/22 06/03/23 fluoxetine 40 mg capsule 1 cap PO DAILY 05/12/22 06/03/23 amoxicillin 500 mg tablet 500 mg PO TID 01/24/23 04/08/23 Previous Rx's Medication Instructions Recorded calcium carbonate 250 mg-vitamin 2 tab PO BIDWM 60 days #240 tabs 05/13/22 D3 3.125 mcg (125 unit) tablet calcium carbonate 500 mg calcium 500 mg PO TID 30 days #90 tabs 05/13/22 (1,250 mg) tablet (Oyster Shell Calcium 500) cefuroxime axetil 500 mg tablet 500 mg PO BID #7 tabs 05/13/22 acyclovir 400 mg tablet 400 mg PO DAILY@1200 #90 tabs 10/08/22 clindamycin HCl 300 mg capsule 300 mg PO Q8H #30 caps 06/03/23 oxycodone 5 mg tablet 5 mg PO Q6H PRN pain #20 tabs 06/03/23 lenalidomide 10 mg capsule 10 mg PO DAILY #14 caps 06/07/23 (Revlimid) lenalidomide 10 mg capsule 10 mg PO DAILY #14 caps 06/14/23 (Revlimid) lenalidomide 10 mg capsule 10 mg PO DAILY #14 caps 06/14/23 (Revlimid) lenalidomide 10 mg capsule 10 mg PO DAILY #14 caps 07/23/23 (Revlimid) lenalidomide 10 mg capsule 10 mg PO DAILY #14 caps 09/05/23 (Revlimid) lenalidomide 10 mg capsule 10 mg PO DAILY #14 caps 11/21/23 (Revlimid) Allergies Allergy/AdvReac Type Severity Reaction Status Date / Time No Known Allergies Allergy Verified 11/27/23 13:49 [No Known Allergies*] Review of Systems Review of Systems: Positive shortness of breath Yes all other systems are reviewed and are negative PMFSH Past Medical History Onset Date is defined in the Problem List Problems that require an onset date and time if occurred within 24 hrs of arrival to the ED Aortic Dissection and Rupture; Neurologic impairment; Cardiopulmonary Arrest; Endotracheal Intubation; Insertion or Replacement of Mechanical Circulatory Assist Device Medical History Depression H/O gastroesophageal reflux (GERD) Hx of multiple myeloma Hypothyroidism Surgical History H/O tooth extraction History of bone marrow biopsy History of cholecystectomy Family History Family History Daughter Diabetes Thyroid cancer Social History Social History Household Members: Children Household Members Other:: adult son Housing: House Are you a primary hearing care professional to a significant other at home: No Do you presently have visiting nurse or other home services: Yes (currently at home care place) Alcohol intake: former Comment: sleeping Patient Tobacco Use Status: Current everyday Tobacco user Tobacco use type: Cigarette Years Smoked: 20 Smoked in Last 30 Days: No e-Cigarette/Vaping Use: Never Used Second Hand Smoke Exposure: No Use of substances other than those prescribed or required for medical reasons: No Substance Use Type: Marijuana Advance Directives: Yes Advance Directives on File: Yes Advance Directives Date on File: 03/15/21 service: No Current occupational status: unemployed Physical Exam Vital Signs: Vital Signs: Last Vital Signs Temp 98.6 F 11/27/23 16:32 Pulse 63 11/27/23 16:32 Resp 19 11/27/23 16:32 BP 107/58 L 11/27/23 16:32 Pulse Ox 93 11/27/23 16:32 O2 Del Method Room Air 11/27/23 16:32 BMI result Body Mass Index 25.4 Appearance: Alert. Oriented X3. No acute distress. Eyes: Pupils equal, round and reactive to light. ENT: Pharynx normal. Neck: Normal inspection. Neck supple. No lymph nodes noted. No crepitus CVS: Normal heart rate and rhythm. Pulses normal. Normal S1 and S2 Respiratory: Diminished breath sounds bilaterally. Positive chest wall tenderness on palpation on the left side. There is no crepitus noted. Abdomen: Soft and nontender. No rigidity. No distention. good BS x4 Skin: Skin warm and dry. Normal skin color. Normal skin turgor. Extremities: No lower extremity edema. Neurovascular intact to all extremities. No Lacerations. No Rash Neuro: Oriented X 3. No motor deficit. No sensory deficit. Moving all extermities. No slurred speech Medications Administered Discontinued Medications Generic Name Dose Route Start Last Admin Trade Name Freq PRN Reason Stop Dose Admin Sodium Chloride 500 mls @ 999 mls/hr 11/27/23 14:45 11/27/23 15:18 Ns IV 11/27/23 15:15 Infused .Q31M KULDEEP Infusion Iohexol 98 ml 11/27/23 16:00 11/27/23 16:02 Iohexol 350 Mg/Ml 100 Ml Infus..Btl IV 11/27/23 16:01 98 ml ONCE ONE Administration Methylprednisolone Sodium Succinate 125 mg 11/27/23 14:31 11/27/23 14:47 Methylprednisolone Sod Succ 125 Mg/2 Ml Vial IVPUSH 11/27/23 14:32 125 mg ONCE ONE Administration Medical Decision Making Medical Decision Making MDM Narrative: Positive chest pain on the left side worse with deep breath. Patient has a history of multiple myeloma. My interpretation of patient's chest x-ray was grossly negative for any acute infiltrate. Patient had 2 sets of cardiac enzymes that were negative her chest pain is atypical for ACS it is with coughing it last for few seconds. A CTA of the chest was done. There is no evidence of pneumonia pneumothorax is no evidence for rib fracture there is no evidence for pulmonary emboli. Explained to patient the need to stop smoking. Will discharge patient home. In stable condition. Most likely the pain is musculoskeletal in nature. Patient's COVID flu RSV were all negative. Differential Diagnosis Differential Diagnoses: The differential diagnosis associated with the presentation includes Musculoskeletal chest pain, pulmonary emboli, pneumonia, pneumothorax, flu, RSV, COVID, dissection Admission/Observation Consideration of admission/observation: Escalation of care including admission/observation considered No need for admission as patient well-appearing normal O2 sat Lab Data MDM Lab Attestation statement: I reviewed the patient's lab results. 11/27/23 14:45 11/27/23 14:45 Labs: Lab Results 11/27/23 11/27/23 Range/Units 14:45 17:33 WBC 9.5 (4.8-10.8) X10*3/uL RBC 3.86 L (4.20-5.50) X10*6/uL Hgb 10.4 L (12.0-16.0) g/dl Hct 33.0 L (37.0-47.0) % MCV 85.5 (80.0-98.0) fL MCH 26.9 L (27.0-33.0) pg MCHC 31.5 (31.0-35.0) g/dl RDW 15.6 (11.0-16.0) % Plt Count 269 (160-400) X10*3/uL MPV 10.7 (9.4-12.3) fL Immature Gran % (Auto) 0.4 (0.0-0.4) % Neut % (Auto) 68.2 (45-73) % Lymph % (Auto) 18.9 L (20-40) % [place] % (Auto) 8.1 (2-11) % Eos % (Auto) 4.1 H (0-4) % Baso % (Auto) 0.3 (0-2) % Lymph # (Auto) 1.8 (1.2-4.9) X10*3/uL [place] # (Auto) 0.8 (0.1-1.2) X10*3/uL Eos # (Auto) 0.4 (0.0-0.4) X10*3/uL Baso # (Auto) 0.0 (0.0-0.2) X10*3/uL Abs Immat Gran (auto) 0.04 H (0.00-0.03) X10*3/uL Absolute Neuts (auto) 6.5 (2.0-8.3) x10*3/uL Absolute Nucleated RBC 0.000 (0.0-0.012) X10*3/uL Nucleated RBC % (auto) 0.0 (0.0-0.2) /100WBC Sodium 142 (135-145) mmol/L Potassium 4.2 D (3.3-5.1) mmol/L Chloride 107 (96-108) mmol/L Carbon Dioxide 26 (22-29) mmol/L Anion Gap 13 (12-20) BUN 28 H (9-16) mg/dL Creatinine 1.14 (0.5-1.4) mg/dL Estim Creat Clear Calc 37.7 Estimated GFR 46 Random Glucose 97 (60-115) mg/dL Calcium 9.1 (8.4-10.2) mg/dL Total Bilirubin 0.4 (0.0-1.0) mg/dL Direct Bilirubin 0.2 (0.0-0.5) mg/dL AST 16 (5-31) U/L ALT 12 (0-31) U/L Alkaline Phosphatase 105 (39-117) U/L Troponin I High Sens 6.6 7.4 (<3.5-17.0) ng/L Total Protein 8.0 (6.5-8.0) g/dL Albumin 3.6 (3.5-5.0) g/dL Lipase 14 (8-78) U/L Influenza Type A (PCR) NEGATIVE (Negative) Influenza Type B (PCR) NEGATIVE (Negative) RSV RNA Qual (PCR) NEGATIVE (Negative) SARS-CoV-2 RNA (RT-PCR) NEGATIVE (Negative) Independent Interpretation I performed an independent interpretation of an: EKG (My interpretation patient's EKG showed a sinus rhythm heart rate is 60 HI QRS QTC within normal limits there is T-wave inversions noted that is unchanged from previous), Plain X-Ray (My interpretation patient's chest x-ray grossly negative for pneumonia pneumothorax) and CT Scan (My interpretation patient's CTA of the chest showed no gross evidence of pulmonary emboli) Radiology Impression Discussion of test interpretation with radiology: I have reviewed the radiologist's reading. Independent Historian I got additional history from patient's family External Record Review External record reviewed: Inpatient record Prescription Management No need for antibiotic is is no gross or so of infection. Chronic Conditions History of multiple myeloma, COPD Discharge Plan Discharge Clinical Impression: Chest pain Patient Disposition: Home, Self-Care Instructions: Chest Pain (DC) Prescriptions: No Action acyclovir 400 mg tablet 400 mg PO DAILY@1200 Qty: 90 6RF lenalidomide [Revlimid] 10 mg Capsule 10 mg PO DAILY Qty: 14 0RF Rx Instructions: [id number]. swallow whole with glass of water; do not open, crush, chew , break, or dissolve levothyroxine 75 mcg tablet 75 mcg PO DAILY amoxicillin 500 mg Tablet 500 mg PO TID lenalidomide [Revlimid] 10 mg Capsule 10 mg PO DAILY Qty: 14 0RF Rx Instructions: swallow whole with glass of water; do not open, crush, chew , break, or dissolve [id number] lenalidomide [Revlimid] 10 mg Capsule 10 mg PO DAILY Qty: 14 4RF Rx Instructions: swallow whole with glass of water; do not open, crush, chew , break, or dissolve. AUTHORIZATION NUMBER: [id number]. lenalidomide [Revlimid] 10 mg Capsule 10 mg PO DAILY Qty: 14 0RF Rx Instructions: swallow whole with glass of water; do not open, crush, chew , break, or dissolve. [id number] lenalidomide [Revlimid] 10 mg Capsule 10 mg PO DAILY Qty: 14 0RF Rx Instructions: swallow whole with glass of water; do not open, crush, chew , break, or dissolve. Authorization number: [id number]. lenalidomide [Revlimid] 10 mg Capsule 10 mg PO DAILY Qty: 14 0RF Rx Instructions: swallow whole with glass of water; do not open, crush, chew , break, or dissolve. [id number] mirtazapine 30 mg tablet 30 mg PO BEDTIME aspirin 81 mg tablet,chewable 81 mg PO DAILY omeprazole 20 mg capsule,delayed release(DR/EC) 1 cap PO DAILY oxycodone 10 mg tablet 1 tab PO Q12H fluoxetine 40 mg capsule 1 cap PO DAILY calcium carbonate [Oyster Shell Calcium 500] 500 mg calcium (1,250 mg) Tablet 500 mg PO TID 30 Days Qty: 90 0RF calcium carbonate-vitamin D3 250 mg-3.125 mcg (125 unit) Tablet 2 tab PO BIDWM 60 Days Qty: 240 0RF cefuroxime axetil 500 mg tablet 500 mg PO BID Qty: 7 0RF clindamycin HCl 300 mg capsule 300 mg PO Q8H Qty: 30 0RF oxycodone 5 mg tablet 5 mg PO Q6H PRN (Reason: pain) Qty: 20 0RF Rx Instructions: Partial Fill upon patient request. Referrals: Physician,Mary Kay J [Primary Care Provider] - 11/29/23 Iraj Hernandez MD [Physician] - 11/29/23 Print Language: Frisian
--- NOTE | 2023-11-27 14:33 | PC.NURSE ---
pt to xray at this time.
--- NOTE | 2023-11-27 14:57 | PC.NURSE ---
labs obtained/sent to lab. medication administered per provider order.
--- NOTE | 2023-11-27 15:18 | PC.NURSE ---
medications administered per provider order.
--- NOTE | 2023-11-27 16:00 | PC.NURSE ---
pt to CT at this time.
[2023-11-27 16:32] VITALS: BP 107/58; PULSE 63; RESP 19; TEMP 37; O2SAT 93
[2023-11-27 18:16] VITALS: BP 140/55; PULSE 59; RESP 15; TEMP 37; O2SAT 96
--- NOTE | 2023-11-27 18:30 | PC.NURSE ---
this RN called and spoke w/ pt's primary contact (homero) in regards to pt being ready for d/c - granddaughter states she is going call family members for ETA - ED phone number provided to contact.
== END 2023-11-27 18:50 | disposition home or self-care (01) ==
PROVIDERS: Emergency Provider Emergency Medicine Emergency Medical Services
DX: R07.9 Chest pain, unspecified (principal); R05.9 Cough, unspecified; E03.9 Hypothyroidism, unspecified; Z85.89 Personal history of malignant neoplasm of other organs and systems; Z20.822 Contact with and (suspected) exposure to COVID-19; Z20.828 Contact with and (suspected) exposure to other viral communicable diseases
CPT/HCPCS: 0241U; 36415; 71045; 71275; 80048; 80076; 83690; 84484; 85025; 93005; 96361; 96374; 99284; 99285; J2930; Q9967

== ENCOUNTER → 2023-11-27 14:08 | Outpatient (BNV) | payer MEDICARE, MEDICAID, SELFPAY | PROVIDERS: Emergency Provider Emergency Medicine Emergency Medical Services; Visit Provider Internal Medicine Cardiovascular Disease | DX: R94.31 Abnormal electrocardiogram [ECG] [EKG] (principal); R07.9 Chest pain, unspecified | CPT/HCPCS: 93010 ==

== ENCOUNTER 2024-02-25 11:27 | Inpatient (IN) | payer MEDICARE, OTHER, SELFPAY ==
[2024-02-25] VITALS (8 sets, daily range): BP systolic 94–148; BP diastolic 50–80; PULSE 61–123; RESP 14–18; TEMP 36.5–36.8; O2SAT 94–100; BMI 23.9; BMI 23.8
--- NOTE | ~2024-02-25 | XR_ITS ---
EXAMINATION: XR CHEST CLINICAL INFORMATION: Weakness. COMPARISON: Chest radiograph 11/27/2023. TECHNIQUE: AP view of the chest was obtained. FINDINGS: Stable prominence of the cardiomediastinal silhouette. Diffusely increased interstitial markings. No focal consolidation. No pleural effusion or pneumothorax. Similar expansile sclerotic osseous abnormality in the superior right scapula. Chronic left-sided rib fractures. XR/XR chest 1V IMPRESSION: 1. Increased interstitial markings, nonspecific could be seen in the context of pulmonary edema, small airways disease or atypical/viral infection. No consolidation or pleural effusion. 2. Chronic expansile bony lesion in the superior right scapula, stable dating back to 2020. 3. Chronic left-sided rib fractures.
--- NOTE | ~2024-02-25 | CT_ITS ---
CT FACIAL BONES WITHOUT CONTRAST CLINICAL INFORMATION: Right-sided molar infection with drain. Rule out jaw osteomyelitis. COMPARISON: CT facial bones 06/03/2023 TECHNIQUE: A multidetector CT acquisition of the maxillofacial region is obtained without contrast. Multiplanar reformats are acquired and utilized for image interpretation. This CT examination was performed using dose optimization techniques as appropriate, variously including the following: *Automated exposure control *Adjustment of mA and/or kV according to patient size (this includes techniques or standardized protocols for targeted exams where dose is matched to indication/reason for exam; i.e. extremities or head) *Use of iterative reconstruction technique FINDINGS: There is significantly worsening erosion and fragmentation involving the mandibular symphysis and anterior mandibular bodies bilaterally with adjacent soft tissue swelling. The site of bony erosion measures up to 5.5 cm TV by 2 cm AP by 2.5 cm CC. There is a pathologic fracture coursing through the partially eroded anterior right mandible towards the midline mandibular symphysis. Findings could be the sequela of extensive osteomyelitis and/or osteonecrosis in the appropriate clinical context. Accounting for probable infectious or inflammatory soft tissue swelling, no definite discrete mass lesion is identified though assessment is limited. There is lucency surrounding the roots of the residual mandibular premolars bilaterally, partially uncovered into adjacent eroded bone. The paranasal sinuses and the mastoid air cells are clear. The TMJs are unremarkable. 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 CT/CT facial bones wo IV con IMPRESSION: - There is significantly worsening erosion and fragmentation involving the mandibular symphysis and anterior mandibular bodies bilaterally with adjacent soft tissue swelling. There is a pathologic fracture coursing through the partially eroded anterior right mandible towards the midline mandibular symphysis. Findings could be the sequela of extensive osteomyelitis and/or osteonecrosis in the appropriate clinical context. Accounting for probable infectious or inflammatory soft tissue swelling, no definite discrete mass lesion is identified though assessment is limited. Cellulitic changes extend into the submental region and there is right submental skin thickening that can be clinically correlated. - There is lucency surrounding the roots of the residual mandibular premolars bilaterally, partially uncovered into adjacent eroded bone. 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
[2024-02-25 12:11] LABS: MANUAL DIFF FLAG NO
[2024-02-25 12:14] LABS: Basophils Absolute Auto 0.1 X10*3/uL (0.0-0.2); Basophils Percent Auto 0.3 % (0-2); Eosinophils Absolute Auto 0.2 X10*3/uL (0.0-0.4); Eosinophils Percent Auto 1.1 % (0-4); Hematocrit 31.8 % (37.0-47.0); Hemoglobin 10.3 g/dl (12.0-16.0); Imm Gran Abs Auto 0.05 X10*3/uL (0.00-0.03); Imm Gran Pct Auto 0.3 % (0.0-0.4); Lymphocytes Absolute Auto 2.3 X10*3/uL (1.2-4.9); Lymphocytes Percent Auto 14.7 % (20-40); Mean Corpuscular HGB Conc 32.4 g/dl (31.0-35.0); Mean Corpuscular Hemoglobin 27.8 pg (27.0-33.0); Mean Corpuscular Volume 85.7 fL (80.0-98.0); Mean Platelet Volume 10.7 fL (9.4-12.3); Monocytes Absolute Auto 1.4 X10*3/uL (0.1-1.2); Monocytes Percent Auto 8.9 % (2-11); Neutrophils Absolute Auto 11.8 x10*3/uL (2.0-8.3); Neutrophils Percent Auto 74.7 % (45-73); Platelet Count 379 X10*3/uL (160-400); Red Blood Count 3.71 X10*6/uL (4.20-5.50); Red Cell Distribution Width 15.1 % (11.0-16.0); White Blood Count 15.7 X10*3/uL (4.8-10.8)
[2024-02-25 12:32] LABS: Alanine Aminotransferase 10 U/L (0-31); Albumin Level 3.5 g/dL (3.5-5.0); Alkaline Phosphatase 100 U/L (39-117); Anion Gap 16 (12-20); Aspartate Amino Transferase 10 U/L (5-31); Bilirubin Direct < 0.2 mg/dL (0.0-0.5); Bilirubin Total 0.1 mg/dL (0.0-1.0); Blood Urea Nitrogen 53 mg/dL (9-16); Carbon Dioxide 15 mmol/L (22-29); Chloride 113 mmol/L (96-108); Estimated Glomerular Filt Rate 21; Glucose Random 105 mg/dL (60-115); Lipase 8 U/L (8-78); Potassium 3.9 mmol/L (3.3-5.1); Sodium 140 mmol/L (135-145); Total Protein 7.8 g/dL (6.5-8.0)
[2024-02-25 12:35] LABS: Magnesium 1.1 mg/dL (1.6-2.6)
[2024-02-25] MEDS: Magnesium Sulfate/H2O 2 GM/50 ML PIGGYBACK IV ×2 (12:54→20:55)
--- NOTE | 2024-02-25 13:28 | ED.GENADULT ---
HPI - General Adult General Chief complaint: General Medical Stated complaint: DIARRHEA ABD PAIN X3 DAYS PER EMS Time Seen by Provider: 02/25/24 13:28 History of Present Illness HPI narrative: The patient was interviewed with a Kinyarwanda foreign language stenographer. The patient is a 78-year-old female who was a poor historian. She tells me that she has not felt well for years. She had trouble being more specific. With questioning she admits to having had diarrhea recently but could not tell me how long she has had diarrhea. She seemed describe having a worsening of her chronic diarrhea. The patient says that she has had a lot of dental problems and she believes she has probably been on antibiotics recently for her teeth. I believe that her family called 911 today to have her brought to the hospital by ambulance because she seemed very weak. The patient says that she has dental pain which is chronic for her. She does not have any abdominal pain. No significant cough or shortness of breath. No vomiting. Related Data Home Medications Medication Instructions Recorded Confirmed levothyroxine 75 mcg tablet 75 mcg PO DAILY 10/27/20 02/25/24 aspirin 81 mg chewable tablet 81 mg PO DAILY 12/16/20 02/25/24 mirtazapine 30 mg tablet 30 mg PO BEDTIME 12/16/20 02/25/24 omeprazole 20 mg capsule,delayed 1 cap PO DAILY 05/11/22 02/25/24 release oxycodone 10 mg tablet 1 tab PO Q12H 05/11/22 02/25/24 fluoxetine 40 mg capsule 1 cap PO DAILY 05/12/22 02/25/24 loperamide 2 mg tablet 2 mg PO Q4H PRN Loose Stool 02/25/24 02/25/24 Previous Rx's Medication Instructions Recorded calcium carbonate 500 mg calcium 500 mg PO TID 30 days #90 tabs 05/13/22 (1,250 mg) tablet (Oyster Shell Calcium 500) lenalidomide 10 mg capsule 10 mg PO DAILY #14 caps 11/21/23 (Revlimid) potassium chloride 20 mEq oral 20 meq PO DAILY #90 ea 01/06/24 packet Allergies Allergy/AdvReac Type Severity Reaction Status Date / Time No Known Allergies Allergy Verified 02/25/24 11:51 [No Known Allergies*] Review of Systems Review of Systems: Yes all other systems are reviewed and are negative [facility] Past Medical History Medical History Depression H/O gastroesophageal reflux (GERD) Hx of multiple myeloma Hypothyroidism Surgical History H/O tooth extraction History of bone marrow biopsy History of cholecystectomy Family History Family History Daughter Diabetes Thyroid cancer Social History Social History Household Members: Children Household Members Other:: adult son Housing: House Are you a primary career resource technician to a significant other at home: No Do you presently have visiting nurse or other home services: Yes (currently at home care place) Alcohol intake: never Comment: sleeping Patient Tobacco Use Status: Current everyday Tobacco user Tobacco use type: Cigarette Years Smoked: 20 e-Cigarette/Vaping Use: Never Used Second Hand Smoke Exposure: No Substance Use Type: Marijuana Advance Directives: Yes Advance Directives on File: Yes Advance Directives Date on File: 03/15/21 service: No Current occupational status: unemployed Physical Exam ED Vital Signs: Vital Signs - 24 hr 02/25/24 11:46 02/25/24 12:36 Temperature 98.0 F 97.9 F Pulse Rate 63 66 Respiratory Rate 18 Blood Pressure 131/65 118/61 Pulse Oximetry 100 99 Oxygen Delivery Method Room Air Room Air BMI result Body Mass Index 23.9 Const Other: Patient is a frail elderly woman who looks quite weak. She is awake and alert. She is a vague historian but she has a normal mental status. She looks quite chronically ill. She looks weak and dehydrated. HENMT Other: Face is symmetrical. Mucous membranes somewhat dry. Diffuse poor dentition. No intraoral swelling or focal signs of infection. No trismus. Eyes Other: Pupils are round equal, conjunctivae are clear Neck Other: No JVD, no cervical adenopathy Resp Effort & Inspection: normal respiratory effort Auscultation: clear to auscultation bilaterally Cardio Rate: regular rate Rhythm: regular rhythm Heart sounds: S1 normal heart sound present and S2 normal heart sound present GI Other: Abdomen is soft and nontender. Rectal exam revealed dark but not melenic heme-positive stool. Skin Other: Skin is pale and dry. Neuro Other: The patient is awake and alert. She seems quite weak generally but has no focal findings. Extrem Other: No peripheral edema Medications Administered Generic Name Dose Route Start Last Admin Trade Name Freq PRN Reason Stop Dose Admin Lactated Ringer's 1,000 mls @ 100 mls/hr 02/25/24 15:15 02/25/24 16:09 Lr IVCONT 100 mls/hr .Q10H KULDEEP Administration Sodium Chloride 3 ml 02/25/24 16:00 02/25/24 16:59 0.9 % Sodium Chloride Flush 3 Ml Syringe IVFLUSH Not Given QSHIFT KULDEEP Discontinued Medications Generic Name Dose Route Start Last Admin Trade Name Freq PRN Reason Stop Dose Admin Magnesium Sulfate 2 gm in 50 mls @ 25 mls/hr 02/25/24 12:44 02/25/24 14:39 Magnesium Sulfate/H2o IV 02/25/24 14:43 Infused ONCE ONE Infusion Sodium Chloride 1,000 mls @ 999 mls/hr 02/25/24 13:45 02/25/24 14:13 Ns IV 02/25/24 14:45 999 mls/hr .Q1H1M KULDEEP Administration Medical Decision Making Medical Decision Making [facility] Narrative: The patient is a 78-year-old woman presents looking quite weak and dehydrated. Labs show an acute kidney injury with a significant rise in her BUN and creatinine compared to baseline. Additionally her magnesium was low at 1.1. The patient was given magnesium replacement. She was given IV fluids. Although she has an acute kidney injury her potassium is not elevated. My initial impression based on the patient's history of worsening diarrhea was that she might have C diff colitis. She has an elevated white count. However she has not had a fever. She has not tachycardic. Her lactate is normal. Do not think she is septic. Initially the family had imply that she might have been on antibiotics recently but on further questioning this is not necessarily the case. Stool studies were ordered but she did not produce any stool to be sent to the lab. A rectal exam revealed dark but not melenic heme-positive stool. She admits to fairly frequent ibuprofen use because of her chronic dental pain. Given the heme-positive stools and the elevated BUN perhaps she has been having a slow GI bleed secondary to NSAID use. I ordered pantoprazole IV. The patient will be admitted to the hospitalist service for further management. Lab Data 02/25/24 12:07 02/25/24 12:07 Labs: Lab Results 02/25/24 02/25/24 Range/Units 12:07 14:04 WBC 15.7 H (4.8-10.8) X10*3/uL RBC 3.71 L (4.20-5.50) X10*6/uL Hgb 10.3 L (12.0-16.0) g/dl Hct 31.8 L (37.0-47.0) % MCV 85.7 (80.0-98.0) fL MCH 27.8 (27.0-33.0) pg MCHC 32.4 (31.0-35.0) g/dl RDW 15.1 (11.0-16.0) % Plt Count 379 (160-400) X10*3/uL MPV 10.7 (9.4-12.3) fL Immature Gran % (Auto) 0.3 (0.0-0.4) % Neut % (Auto) 74.7 H (45-73) % Lymph % (Auto) 14.7 L (20-40) % [place] % (Auto) 8.9 (2-11) % Eos % (Auto) 1.1 (0-4) % Baso % (Auto) 0.3 (0-2) % Lymph # (Auto) 2.3 (1.2-4.9) X10*3/uL [place] # (Auto) 1.4 H (0.1-1.2) X10*3/uL Eos # (Auto) 0.2 (0.0-0.4) X10*3/uL Baso # (Auto) 0.1 (0.0-0.2) X10*3/uL Abs Immat Gran (auto) 0.05 H (0.00-0.03) X10*3/uL Absolute Neuts (auto) 11.8 H (2.0-8.3) x10*3/uL Absolute Nucleated RBC 0.000 (0.0-0.012) X10*3/uL Nucleated RBC % (auto) 0.0 (0.0-0.2) /100WBC Sodium 140 (135-145) mmol/L Potassium 3.9 D (3.3-5.1) mmol/L Chloride 113 H (96-108) mmol/L Carbon Dioxide 15 L (22-29) mmol/L Anion Gap 16 (12-20) BUN 53 H (9-16) mg/dL Creatinine 2.27 H (0.5-1.4) mg/dL Estim Creat Clear Calc 18.0 Estimated GFR 21 Random Glucose 105 (60-115) mg/dL Lactic Acid 0.7 (0.5-2.0) mmol/L Calcium 8.0 L (8.4-10.2) mg/dL Magnesium 1.1 L* (1.6-2.6) mg/dL Total Bilirubin 0.1 (0.0-1.0) mg/dL Direct Bilirubin < 0.2 (0.0-0.5) mg/dL AST 10 (5-31) U/L ALT 10 (0-31) U/L Alkaline Phosphatase 100 (39-117) U/L Troponin I High Sens 26.5 H D (<3.5-17.0) ng/L C-Reactive Protein 10.95 H (< or = 0.50) mg/dL Total Protein 7.8 (6.5-8.0) g/dL Albumin 3.5 (3.5-5.0) g/dL Lipase 8 (8-78) U/L Discharge Plan Discharge Clinical Impression: Acute kidney injury, Hypomagnesemia, Heme positive stool Patient Disposition: Admitted As Inpatient
--- NOTE | 2024-02-25 13:36 | PC.NURSE ---
pt changed over into hospital attire, pt placed on assistant store manager, pt found to have critical magnesium of 1.1- 2gm Mg in H2O infusing per order.
--- NOTE | 2024-02-25 13:52 | ECG_ITS ---
Test Reason : WEAKNESS Blood Pressure : / mmHG Vent. Rate : 059 BPM Atrial Rate : 059 BPM P-R Int : 126 ms QRS Dur : 082 ms QT Int : 478 ms P-R-T Axes : 040 041 -35 degrees QTc Int : [address] & T wave abnormality, consider inferior ischemia ST & T wave abnormality, consider anterolateral ischemia Prolonged QT Abnormal ECG When compared with ECG of 27-NOV-2023 14:08, T wave inversion now evident in Lateral leads Referred By: Emir Johnson Electronically Signed By:KRISTIN ANGEL MD
[2024-02-25] MEDS: 0.9 % Sodium Chloride 1,000 ML 999 ML IV (14:13)
[2024-02-25 14:20] LABS: Lactic Acid 0.7 mmol/L (0.5-2.0)
[2024-02-25 15:04] LABS: C Reactive Protein 10.95 mg/dL (< or = 0.50)
--- NOTE | 2024-02-25 15:11 | P.HPHOSP_ITS ---
History of Present Illness Date of Service: 02/25/24 Chief Complaint: diarrhea, weakness, poor intaker due to dental pain 78F PMH multiple myeloma, chronic diarrhea, hypothyroid, gerd, mood disorder, presented with several days worsening of her chronic diarrhea, unable to rehydrate or have significant po intake due to ongoing dental pain. she has been taking nsaids for her pain and has not taken imodium recently. diarrhea is watery, non bloody, some crampy pain. continues to feel weak so came to ED. in ED labs signifcant for MARII creatinine 2.27 and hypomagnesemia 1.1. stool pcr pending. Review of Systems 2 Review of Systems: Yes all other systems are reviewed and are negative [facility] Medical History Depression H/O gastroesophageal reflux (GERD) Hx of multiple myeloma Hypothyroidism Family History Daughter Diabetes Thyroid cancer Surgical History H/O tooth extraction History of bone marrow biopsy History of cholecystectomy Social History Household Members: Children Household Members Other:: adult son Housing: House Are you a primary intensive care unit registered nurse to a significant other at home: No Do you presently have visiting nurse or other home services: Yes (currently at home care place) Alcohol intake: never Comment: sleeping Patient Tobacco Use Status: Current everyday Tobacco user Tobacco use type: Cigarette Years Smoked: 20 e-Cigarette/Vaping Use: Never Used Second Hand Smoke Exposure: No Substance Use Type: Marijuana Advance Directives: Yes Advance Directives on File: Yes Advance Directives Date on File: 03/15/21 service: No Current occupational status: unemployed Meds Allergies Allergy/AdvReac Type Severity Reaction Status Date / Time No Known Allergies Allergy Verified 02/25/24 11:51 [No Known Allergies*] Home Medications Medication Instructions Recorded Confirmed Last Taken Type levothyroxine 75 mcg tablet 75 mcg PO DAILY 10/27/20 02/25/24 11/02/20 07:00 History aspirin 81 mg chewable tablet 81 mg PO DAILY 12/16/20 02/25/24 Unknown History mirtazapine 30 mg tablet 30 mg PO BEDTIME 12/16/20 02/25/24 Unknown History omeprazole 20 mg capsule,delayed 1 cap PO DAILY 05/11/22 02/25/24 Unknown History release oxycodone 10 mg tablet 1 tab PO Q12H 05/11/22 02/25/24 Unknown History fluoxetine 40 mg capsule 1 cap PO DAILY 05/12/22 02/25/24 Unknown History loperamide 2 mg tablet 2 mg PO Q4H PRN Loose Stool 02/25/24 02/25/24 Unknown History Physical Exam 2 Vital Signs and Narrative: Vital Signs: Last Vital Signs Temp 97.9 F 02/25/24 12:36 Pulse 66 02/25/24 12:36 Resp 18 02/25/24 11:46 BP 118/61 02/25/24 12:36 Pulse Ox 99 02/25/24 12:36 O2 Del Method Room Air 02/25/24 12:36 BMI result Body Mass Index 23.9 General: AO X 3, no acute distress, frail appearing, hirsutism, swollen tender, right lower jaw Resp: CTA bilateral, no accessory muscles used CVS: S1,S2,RRR GI: soft, non tender, non distended Neuro: motor grossly intact, alert Psych: appropriate affect, appropriate insight Results Labs 02/25/24 12:07 02/25/24 12:07 Labs: Laboratory Results - last 24 hr 02/25/24 02/25/24 12:07 14:04 MCV 85.7 MCH 27.8 MCHC 32.4 RDW 15.1 Plt Count 379 MPV 10.7 Immature Gran % (Auto) 0.3 Neut % (Auto) 74.7 H Lymph % (Auto) 14.7 L Eagle % (Auto) 8.9 Eos % (Auto) 1.1 Baso % (Auto) 0.3 Lymph # (Auto) 2.3 Eagle # (Auto) 1.4 H Eos # (Auto) 0.2 Baso # (Auto) 0.1 Abs Immat Gran (auto) 0.05 H Absolute Neuts (auto) 11.8 H Absolute Nucleated RBC 0.000 Nucleated RBC % (auto) 0.0 Anion Gap 16 Estim Creat Clear Calc 18.0 Estimated GFR 21 Random Glucose 105 Lactic Acid 0.7 Calcium 8.0 L Magnesium 1.1 L* Total Bilirubin 0.1 Direct Bilirubin < 0.2 AST 10 ALT 10 Alkaline Phosphatase 100 C-Reactive Protein 10.95 H Total Protein 7.8 Albumin 3.5 Lipase 8 Assessment and Plan (1) MARII (acute kidney injury): Status: Acute Plan 78F PMH multiple myeloma, chronic diarrhea, hypothyroid, gerd, mood disorder, presented with several days worsening of her chronic diarrhea Worsening chronic diarrhea complicated by acute kidney injury and severe hypomagnesemia IV LR at 100cc/hr, hold NSAIDs, replace and monitor magnesium Monitor BMP Check stool studies Imodium mood disorder prozac GERD Hold PPI for hypomagnesemia Hypothyroid Synthroid Multiple myeloma Oxycodone, Revlimid DVT prophylaxis with heparin subQ Full code Patient with significant renal dysfunction and electrolyte abnormalities requiring IV fluids and close monitoring, therefore expected require at least 2 midnights inpatient Quality Stroke Does the patient have a stroke diagnosis?: No VTE Prior VTE?: No VTE Risk Level:: Medical - moderate - high VTE Device Contraindication: Treatment Not Indicated VTE Drug Contraindication: N/A - Med Ordered
--- NOTE | 2024-02-25 15:39 | PHA.MEDREC ---
Addendum entered by Esme Hoyos RPh 02/25/24 15:39: Patient not currently on Revlimid, as it is 2 weeks on and 2 weeks off therefore left unconfirmed. Original Note: Pharmacy Consult ? Medication Reconciliation Pharmacy has completed the medication reconciliation. Patient's family confirm medications. Esme Hoyos, PharmD
[2024-02-25] MEDS: Lactated Ringers 1,000 ML 100 ML IVCONT (16:09)
[2024-02-25 16:35] LABS: Troponin-I High Sensitivity 26.5 ng/L (<3.5-17.0)
[2024-02-25 18:01] LABS: Hematocrit 28.5 % (37.0-47.0); Hemoglobin 9.4 g/dl (12.0-16.0); Mean Corpuscular Hemoglobin 28.1 pg (27.0-33.0); Mean Corpuscular Volume 85.1 fL (80.0-98.0); Mean Platelet Volume 10.5 fL (9.4-12.3); Platelet Count 324 X10*3/uL (160-400); Red Blood Count 3.35 X10*6/uL (4.20-5.50); Red Cell Distribution Width 15.1 % (11.0-16.0); White Blood Count 13.4 X10*3/uL (4.8-10.8)
[2024-02-25] MEDS: Pantoprazole Sodium 40 MG/10 ML VIAL 80 MG IVPUSH (18:07)
[2024-02-25 18:19] LABS: Troponin-I High Sensitivity 21.1 ng/L (<3.5-17.0)
[2024-02-25] MEDS: Heparin Sodium,Porcine 5,000 UNIT/ML VIAL 5000 UNIT SUBCUT (18:43)
[2024-02-25] MEDS: oxyCODONE HCl Immed Release 5 MG TABLET PO (18:47)
--- NOTE | 2024-02-25 20:13 | PC.NURSE ---
pt trnsported to 477 by Jeny, PCT
[2024-02-25] MEDS: Mirtazapine 30 MG TABLET PO (20:49)
[2024-02-25] MEDS: 0.9 % Sodium Chloride Flush 3 ML SYRINGE IVFLUSH (20:49)
[2024-02-25] MEDS: Magnesium Oxide 400 MG TABLET 800 MG PO (20:49)
[2024-02-25] MEDS: Acetaminophen 325 MG TABLET 650 MG PO (20:49)
[2024-02-26 04:00] VITALS: BP 114/55; PULSE 62; RESP 18; TEMP 36.5; O2SAT 98
[2024-02-26] MEDS: oxyCODONE HCl Immed Release 5 MG TABLET PO ×4 (05:20→23:14)
[2024-02-26] MEDS: Levothyroxine Sodium 75 MCG TABLET PO (05:20)
[2024-02-26] MEDS: Heparin Sodium,Porcine 5,000 UNIT/ML VIAL 5000 UNIT SUBCUT ×2 (05:21→17:34)
[2024-02-26] MEDS: Lactated Ringers 1,000 ML 100 ML IVCONT ×2 (05:21→16:35)
[2024-02-26 06:41] LABS: Hematocrit 26.8 % (37.0-47.0); Hemoglobin 8.8 g/dl (12.0-16.0); Mean Corpuscular HGB Conc 32.8 g/dl (31.0-35.0); Mean Corpuscular Hemoglobin 28.3 pg (27.0-33.0); Mean Corpuscular Volume 86.2 fL (80.0-98.0); Platelet Count 297 X10*3/uL (160-400); Red Blood Count 3.11 X10*6/uL (4.20-5.50); Red Cell Distribution Width 15.2 % (11.0-16.0); White Blood Count 10.1 X10*3/uL (4.8-10.8)
[2024-02-26 06:57] LABS: Anion Gap 12 (12-20); Blood Urea Nitrogen 46 mg/dL (9-16); Calcium 7.9 mg/dL (8.4-10.2); Carbon Dioxide 13 mmol/L (22-29); Chloride 118 mmol/L (96-108); Creatinine Clr Calc Pharmacy 27.3; Estimated Glomerular Filt Rate 33; Glucose Fasting 84 mg/dL (60-99); Magnesium 2.1 mg/dL (1.6-2.6); Potassium 3.4 mmol/L (3.3-5.1); Sodium 140 mmol/L (135-145)
[2024-02-26 07:39] VITALS: BP 103/79; PULSE 56; RESP 18; TEMP 36.1; O2SAT 99
[2024-02-26] MEDS: Sodium Bicarbonate 650 MG TABLET 1300 MG PO ×2 (09:12→20:25)
[2024-02-26] MEDS: Acetaminophen 325 MG TABLET 650 MG PO ×3 (09:12→23:14)
[2024-02-26] MEDS: Potassium Chloride Packet 20 MEQ PACKET PO (09:13)
[2024-02-26] MEDS: 0.9 % Sodium Chloride Flush 3 ML SYRINGE IVFLUSH (09:13)
[2024-02-26] MEDS: Aspirin 81 MG TAB.CHEW PO (09:13)
[2024-02-26] MEDS: Magnesium Oxide 400 MG TABLET 800 MG PO ×3 (09:13→20:25)
[2024-02-26] MEDS: FLUoxetine HCl 20 MG CAPSULE 40 MG PO (09:13)
[2024-02-26 11:06] VITALS: BP 104/50; PULSE 53; RESP 18; TEMP 36.2; O2SAT 100
[2024-02-26] MEDS: Ampicillin Sodium/Sulbactam Na 3 GM in 0.9 % Sodium Chloride 100 ML IV (12:27)
--- NOTE | 2024-02-26 13:29 | MHC.CM.PN ---
IMM 02/26/24, sent to son, pt lives with son, Marcus Doan, she has services in the home of [facility] from [facility], and the family is working with [facility] bottle caser to increase the hours. Her PCP is: Erika Morris. Family to provide transportation. HCP on file list pt.s late , CM will discuss with pt and family completing a new HCP. CM will follow and assist with DC plan.
--- NOTE | 2024-02-26 15:11 | P.PNIM_ITS ---
Subjective Subjective Date of Service: 02/26/24 Interval History: Seen and evaluated this morning reporting tooth pain, right jaw pain with drainage No fever or chills No diarrhea overnight Review of Systems Review of Systems: Yes all other systems are reviewed and are negative Physical Exam 2 Vital Signs: Vital Signs: Last Vital Signs Temp 97.1 F 02/26/24 11:06 Pulse 53 02/26/24 11:06 Resp 18 02/26/24 11:06 BP 104/50 L 02/26/24 11:06 Pulse Ox 100 02/26/24 11:06 O2 Del Method Room Air 02/26/24 11:06 BMI result Body Mass Index 23.8 Const: Other: Constitutional : Awake, interactive, not in distress Mouth: Right molar fell, drainage noted, open space under Teeth 27/28 with drainage coming out. losing many teeth Neck : Normal inspection, Supple Cardiovascular : RRR, no JVP, no lower extremity edema Respiratory : good bilateral air entry, no crackles, wheezes or rhonchi Gastrointestinal: soft, lax, Normal bowel sounds, Non tender Skin : Warm, Dry Neurological : Alert & oriented x3, No focal deficit Objective Data Active Medications Acetaminophen (Acetaminophen 325 Mg Tablet) 650 mg PO Q6H PRN PRN Reason: Pain, Mild (Pain Scale 1-3) Last Admin: 02/26/24 09:12 Dose: 650 mg Documented By: LAUREN Aspirin (Aspirin 81 Mg Tab.Chew) 81 mg PO DAILY [facility] Last Admin: 02/26/24 09:13 Dose: 81 mg Documented By: LAUREN Calcium Carbonate (Calcium Carbonate 500 Mg Tablet) 500 mg PO TID [facility] Last Admin: 02/26/24 09:13 Dose: 500 mg Documented By: LAUREN Fluoxetine HCl (Fluoxetine Hcl 20 Mg Capsule) 40 mg PO DAILY [facility] Last Admin: 02/26/24 09:13 Dose: 40 mg Documented By: LAUREN Heparin Sodium (Porcine) (Heparin Sodium,Porcine 5,000 Unit/Ml Vial) 5,000 unit SUBCUT Q12H [facility] Last Admin: 02/26/24 05:21 Dose: 5,000 unit Documented By: JOSE MARIA Lactated Ringer's (Lr) 1,000 mls @ 100 mls/hr IVCONT .Q10H [facility] Last Admin: 02/26/24 05:21 Dose: 100 mls/hr Documented By: JOSE MARIA Ampicillin Sodium/Sulbactam (Sodium 3 gm/ Sodium Chloride) 100 mls @ 200 mls/hr IV Q12H [facility] Last Infusion: 02/26/24 13:00 Dose: Infused Documented By: LAUREN Levothyroxine Sodium (Levothyroxine Sodium 75 Mcg Tablet) 75 mcg PO DAILY@0600 [facility] Last Admin: 02/26/24 05:20 Dose: 75 mcg Documented By: JOSE MARIA Loperamide HCl (Loperamide Hcl 2 Mg Capsule) 2 mg PO Q4H PRN PRN Reason: Loose Stool Magnesium Oxide (Magnesium Oxide 400 Mg Tablet) 800 mg PO TID [facility] Last Admin: 02/26/24 09:13 Dose: 800 mg Documented By: LAUREN Mirtazapine (Mirtazapine 30 Mg Tablet) 30 mg PO BEDTIME [facility] Last Admin: 02/25/24 20:49 Dose: 30 mg Documented By: JOSE MARIA Oxycodone HCl (Oxycodone Hcl Immed Release 5 Mg Tablet) 5 mg PO Q6H PRN PRN Reason: Pain, Severe (Pain Scale 7-10) Last Admin: 02/26/24 12:26 Dose: 5 mg Documented By: LAUREN Potassium Chloride (Potassium Chloride Packet 20 Meq Packet) 20 meq PO DAILY [facility] Last Admin: 02/26/24 09:13 Dose: 20 meq Documented By: LAUREN Sodium Bicarbonate (Sodium Bicarbonate 650 Mg Tablet) 1,300 mg PO BID [facility] Last Admin: 02/26/24 09:12 Dose: 1,300 mg Documented By: LAUREN Sodium Chloride (0.9 % Sodium Chloride Flush 3 Ml Syringe) [facility] Admin: 02/26/24 09:13 Dose: 3 ml Documented By: LAUREN Labs 02/26/24 06:24 02/26/24 06:24 Labs: Laboratory Results - last 24 hr 02/25/24 02/25/24 02/26/24 12:07 17:51 06:24 MCV 85.1 86.2 MCH 28.1 28.3 MCHC 33.0 32.8 RDW 15.1 15.2 Plt Count 324 297 MPV 10.5 11.0 Absolute Nucleated RBC 0.000 0.000 Nucleated RBC % (auto) 0.0 0.0 Anion Gap 12 Estim Creat Clear Calc 27.3 Estimated GFR 33 Fasting Glucose 84 Calcium 7.9 L Magnesium 2.1 Troponin I High Sens 26.5 H D 21.1 H Hold Yellow Top See Note Blood Type O Positive Antibody Screen NEGATIVE Assessment and Plan (1) Heme positive stool: Status: Acute (2) Hypomagnesemia: Status: Acute (3) Acute kidney injury: Status: Acute (4) Infection of tooth socket: Status: Acute Plan 78F PMH multiple myeloma, chronic diarrhea, hypothyroid, gerd, mood disorder, presented with several days worsening of her chronic diarrhea Deep molar infection A teeth fell off her mouth overnight Significant amount of drainage Cover with Unasyn and Vanco Pending culture from pus XR to r\o OM acute on chronic diarrhea complicated by acute kidney injury and severe hypomagnesemia improved Continue IVF Cr improving to 1.5 today monitor magnesium and BMP Check stool studies Imodium Metabolic acidosis, acute Bicarb of 13 to start NaHCO3 supplement mood disorder prozac GERD Hold PPI for hypomagnesemia Hypothyroid Synthroid Multiple myeloma Oxycodone, Revlimid DVT prophylaxis with heparin subQ Full code Patient with significant renal dysfunction and deep mouth infection requiring IV fluids and close monitoring, therefore expected require overnight inpatient Quality Stroke Does the patient have a stroke diagnosis?: No VTE Prior VTE?: No VTE Risk Level:: Medical - moderate - high VTE Device Contraindication: Treatment Not Indicated VTE Drug Contraindication: N/A - Med Ordered
--- NOTE | 2024-02-26 15:47 | PHA.PROG ---
Admission Date/Time: February 25, 2024 15:09 Indication: Other/mouth infection Weight in k.9 kg Adjusted body weight in Kg: [place] body weight in Kg: Obesity Dosing Indication % IBW: Serum Creatinine - Last 168 Hours 02/25/24 02/26/24 12:07 06:24 Creatinine 2.27 H 1.50 H Estimated CrCl and GFR - Last 168 Hours 02/25/24 02/26/24 12:07 06:24 Estim Creat Clear Calc 18.0 27.3 Estimated GFR 21 33 Vancomycin Loading Dose: 1500mg x 1 Current Vancomycin Dosing Regimen: 750 mg Q24H Vancomycin Monitoring using AUC goal of 400 - 600 range with trough as surrogate marker: 474 mg/L Date and Time for next Vancomycin Level to be drawn: 02/28/24 @1400 Pharmacist Comments on Vancomycin Plan: will continue to monitor renal function and adjust as necessary Vancomycin dosing will take advantage of [employer] as a clinical decision support tool that uses Bayesian modeling to calculate individual patient's pharmacokinetic parameters and forecast the patient's drug concentration time course with the target goal AUC 24 range of 400 - 600 mg/L/hr.
[2024-02-26 15:59] VITALS: BP 141/90; PULSE 56; RESP 18; TEMP 36.1; O2SAT 100
[2024-02-26] MEDS: vancomycin HCL 1,500 MG in 0.9 % Sodium Chloride 500 ML 333.33 MG IV (16:35)
--- NOTE | 2024-02-26 18:07 | PC.NURSE ---
Pt family at bedside in afternoon reports pt stated lost tooth overnight found in cup near bedside, Dr Lee notified CT scan completed in afternoon per order. Right jaw swelling and pain during shift medicated with prn tylenol and oxycodone with good effect. Pt with very poor dentition. Continues IV antibiotics and fluids per order.
[2024-02-26 19:52] VITALS: BP 151/57; PULSE 63; RESP 16; TEMP 36.9; O2SAT 99
[2024-02-26] MEDS: Mirtazapine 30 MG TABLET PO (20:25)
[2024-02-26 23:59] VITALS: BP 142/93; PULSE 65; RESP 18; TEMP 36.5; O2SAT 98
[2024-02-27] MEDS: Ampicillin Sodium/Sulbactam Na 3 GM in 0.9 % Sodium Chloride 100 ML IV ×3 (00:55→23:06)
[2024-02-27 04:00] VITALS: BP 143/81; PULSE 58; RESP 18; TEMP 36.3; O2SAT 98
[2024-02-27 06:18] LABS: Hematocrit 21.8 % (37.0-47.0); Hemoglobin 7.2 g/dl (12.0-16.0); Mean Corpuscular Hemoglobin 27.8 pg (27.0-33.0); Mean Corpuscular Volume 84.2 fL (80.0-98.0); Mean Platelet Volume 10.7 fL (9.4-12.3); Platelet Count 271 X10*3/uL (160-400); Red Blood Count 2.59 X10*6/uL (4.20-5.50); Red Cell Distribution Width 15.1 % (11.0-16.0)
[2024-02-27 06:35] LABS: Anion Gap 8 (12-20); Blood Urea Nitrogen 32 mg/dL (9-16); Calcium 8.4 mg/dL (8.4-10.2); Carbon Dioxide 18 mmol/L (22-29); Chloride 117 mmol/L (96-108); Creatinine Clr Calc Pharmacy 45.6; Estimated Glomerular Filt Rate > 60; Glucose Random 90 mg/dL (60-115); Potassium 3.4 mmol/L (3.3-5.1); Sodium 140 mmol/L (135-145)
[2024-02-27 06:58] LABS: Alanine Aminotransferase 7 U/L (0-31); Albumin Level 2.5 g/dL (3.5-5.0); Alkaline Phosphatase 69 U/L (39-117); Aspartate Amino Transferase 11 U/L (5-31); Bilirubin Direct < 0.2 mg/dL (0.0-0.5); Bilirubin Total 0.1 mg/dL (0.0-1.0); Total Protein 5.6 g/dL (6.5-8.0)
[2024-02-27 07:24] VITALS: BP 107/55; PULSE 55; RESP 16; TEMP 36.8; O2SAT 98
[2024-02-27] MEDS: Lactated Ringers 1,000 ML 100 ML IVCONT (11:11)
[2024-02-27] MEDS: 0.9 % Sodium Chloride Flush 3 ML SYRINGE IVFLUSH ×3 (11:11→19:40)
[2024-02-27] MEDS: Sodium Bicarbonate 650 MG TABLET 1300 MG PO ×2 (11:11→19:38)
[2024-02-27] MEDS: Aspirin 81 MG TAB.CHEW PO (11:12)
[2024-02-27] MEDS: Magnesium Oxide 400 MG TABLET 800 MG PO ×3 (11:12→19:38)
[2024-02-27] MEDS: FLUoxetine HCl 20 MG CAPSULE 40 MG PO (11:12)
[2024-02-27] MEDS: Potassium Chloride Packet 20 MEQ PACKET PO (11:12)
--- NOTE | 2024-02-27 11:24 | P.PNIM_ITS ---
Subjective Subjective Date of Service: 02/27/24 Interval History: Seen and evaluated this morning reporting tooth pain, right jaw pain with drainage No fever or chills Dilutional drop of Hb to 7.2 No diarrhea overnight Physical Exam 2 Vital Signs: Vital Signs: Last Vital Signs Temp 98.3 F 02/27/24 07:24 Pulse 55 02/27/24 07:24 Resp 16 02/27/24 07:24 BP 107/55 L 02/27/24 07:24 Pulse Ox 98 02/27/24 07:24 O2 Del Method Room Air 02/27/24 07:24 BMI result Body Mass Index 23.8 Const: Other: Constitutional : Awake, interactive, not in distress Mouth: Right molar fell, drainage noted, open space under Teeth 27/28 with drainage coming out. losing many teeth Neck : Normal inspection, Supple Cardiovascular : RRR, no JVP, no lower extremity edema Respiratory : good bilateral air entry, no crackles, wheezes or rhonchi Gastrointestinal: soft, lax, Normal bowel sounds, Non tender Skin : Warm, Dry Neurological : Alert & oriented x3, No focal deficit Objective Data Active Medications Acetaminophen (Acetaminophen 325 Mg Tablet) 650 mg PO Q6H PRN PRN Reason: Pain, Mild (Pain Scale 1-3) Last Admin: 02/26/24 23:14 Dose: 650 mg Documented By: ERIC Aspirin (Aspirin 81 Mg Tab.Chew) 81 mg PO DAILY [facility] Last Admin: 02/27/24 11:12 Dose: 81 mg Documented By: KATIE Calcium Carbonate (Calcium Carbonate 500 Mg Tablet) 500 mg PO TID [facility] Last Admin: 02/27/24 11:12 Dose: 500 mg Documented By: KATIE Fluoxetine HCl (Fluoxetine Hcl 20 Mg Capsule) 40 mg PO DAILY [facility] Last Admin: 02/27/24 11:12 Dose: 40 mg Documented By: KATIE Heparin Sodium (Porcine) (Heparin Sodium,Porcine 5,000 Unit/Ml Vial) 5,000 unit SUBCUT Q12H [facility] Last Admin: 02/27/24 06:00 Dose: Not Given Documented By: ERIC Non-Admin Reason: Patient Asleep Lactated Ringer's (Lr) 1,000 mls @ 100 mls/hr IVCONT .Q10H [facility] Last Admin: 02/27/24 11:11 Dose: 100 mls/hr Documented By: KATIE Ampicillin Sodium/Sulbactam (Sodium 3 gm/ Sodium Chloride) 100 mls @ 200 mls/hr IV Q12H [facility] Last Admin: 02/27/24 11:17 Dose: 200 mls/hr Documented By: KATIE Vancomycin HCl 750 mg/ Sodium (Chloride) 265 mls @ 265 mls/hr IV Q24H [facility] Levothyroxine Sodium (Levothyroxine Sodium 75 Mcg Tablet) 75 mcg PO DAILY@0600 [facility] Last Admin: 02/27/24 06:00 Dose: Not Given Documented By: ERIC Non-Admin Reason: Patient Asleep Loperamide HCl (Loperamide Hcl 2 Mg Capsule) 2 mg PO Q4H PRN PRN Reason: Loose Stool Magnesium Oxide (Magnesium Oxide 400 Mg Tablet) 800 mg PO TID [facility] Last Admin: 02/27/24 11:12 Dose: 800 mg Documented By: KATIE Mirtazapine (Mirtazapine 30 Mg Tablet) 30 mg PO BEDTIME [facility] Last Admin: 02/26/24 20:25 Dose: 30 mg Documented By: ERIC Oxycodone HCl (Oxycodone Hcl Immed Release 5 Mg Tablet) 5 mg PO Q4H PRN PRN Reason: Pain, Severe (Pain Scale 7-10) Last Admin: 02/26/24 23:14 Dose: 5 mg Documented By: ERIC Pharmacy Consult (Consult Rx Vancomycin Dosing) 1 each MISCELLANE DAILY PRN PRN Reason: Consult order Potassium Chloride (Potassium Chloride Packet 20 Meq Packet) 20 meq PO DAILY [facility] Last Admin: 02/27/24 11:12 Dose: 20 meq Documented By: KATIE Sodium Bicarbonate (Sodium Bicarbonate 650 Mg Tablet) 1,300 mg PO BID [facility] Last Admin: 02/27/24 11:11 Dose: 1,300 mg Documented By: KATIE Sodium Chloride (0.9 % Sodium Chloride Flush 3 Ml Syringe) 3 ml IVFLUSH QSHIFT [facility] Last Admin: 02/27/24 11:11 Dose: 3 ml Documented By: KATIE Labs 02/27/24 05:59 02/27/24 05:59 Labs: Laboratory Results - last 24 hr 02/27/24 05:59 MCV 84.2 MCH 27.8 MCHC 33.0 RDW 15.1 Plt Count 271 MPV 10.7 Absolute Nucleated RBC 0.000 Nucleated RBC % (auto) 0.0 Anion Gap 8 L Estim Creat Clear Calc 45.6 Estimated GFR > 60 Random Glucose 90 Calcium 8.4 D Total Bilirubin 0.1 Direct Bilirubin < 0.2 AST 11 ALT 7 Alkaline Phosphatase 69 Total Protein 5.6 L Albumin 2.5 L Microbiology Microbiology Results: Microbiology 02/25/24 14:27 Blood Culture - Preliminary Blood - Venous No growth after 24 hours. 02/25/24 14:04 Blood Culture - Preliminary Blood - Venous No growth after 24 hours. Assessment and Plan (1) Infection of tooth socket: Status: Acute (2) Acute kidney injury: Status: Acute (3) Acute on chronic anemia: Status: Acute Plan 78F PMH multiple myeloma, chronic diarrhea, hypothyroid, gerd, mood disorder, presented with several days worsening of her chronic diarrhea Right jaw osteonecrosis\osteomyelitis Face CT showing suggestive changes A teeth fell off her mouth Significant amount of drainage Continue to Cover with Unasyn and Vanco Pending cultures ID and Oncology consults acute on chronic diarrhea complicated by acute kidney injury and severe hypomagnesemia improved DC IVF Cr improving to 0.9 today monitor magnesium and BMP Imodium acute on chronic anemia Hb dropped to 7.2, partially dilutional reported +Ve occult on admission Hold ASA and Heparin check occult stool GI consult Metabolic acidosis, acute improving Bicarb of 19 NaHCO3 supplement mood disorder prozac GERD Hold PPI for hypomagnesemia Hypothyroid Synthroid Multiple myeloma Oxycodone, Revlimid DVT prophylaxis SCDs Full code Patient with significant renal dysfunction and deep mouth infection requiring IV antibiotics and pending specialist opinion Quality Stroke Does the patient have a stroke diagnosis?: No VTE Prior VTE?: No VTE Risk Level:: Medical - moderate - high VTE Device Contraindication: Treatment Not Indicated VTE Drug Contraindication: N/A - Med Ordered
[2024-02-27 11:48] VITALS: BP 142/66; PULSE 79; RESP 16; TEMP 36.8; O2SAT 97
[2024-02-27 13:07] LABS: Hematocrit 26.2 % (37.0-47.0); Hemoglobin 8.6 g/dl (12.0-16.0); Mean Corpuscular HGB Conc 32.8 g/dl (31.0-35.0); Mean Corpuscular Hemoglobin 27.9 pg (27.0-33.0); Mean Corpuscular Volume 85.1 fL (80.0-98.0); Mean Platelet Volume 10.4 fL (9.4-12.3); Platelet Count 300 X10*3/uL (160-400); Red Blood Count 3.08 X10*6/uL (4.20-5.50); Red Cell Distribution Width 15.3 % (11.0-16.0); White Blood Count 9.1 X10*3/uL (4.8-10.8)
[2024-02-27] MEDS: vancomycin HCL 750 MG in 0.9 % Sodium Chloride 250 ML 265 MG IV (15:12)
[2024-02-27] MEDS: oxyCODONE HCl Immed Release 5 MG TABLET PO ×2 (15:23→19:38)
[2024-02-27 15:37] VITALS: BP 149/66; PULSE 57; RESP 16; TEMP 36.2; O2SAT 99
--- NOTE | 2024-02-27 17:26 | P.CNHO_ITS ---
Subjective - Subjective Chief complaint: Consult for: Multiple myeloma. 2. Osteomyelitis of the jaw. Patient: known to practice within the last 3 years Consult date: 02/27/24 Requesting Physician: Dr. Lee. Primary Care Provider: Erika Delgado MD Family Provider: Chemo Tomas Medical Summary: DIAGNOSIS: Osteomyelitis of the jaw. Multiple myeloma. HPI - Consult Narrative Reason for consult: Consult for: 1. Multiple myeloma. 2. Osteonecrosis of the jaw. Narrative: Altagracia Moe is a 78 year old lady admitted on 02/24. On account of: diarrhea, weakness, poor intake due to dental pain. Patient has history of multiple myeloma, chronic diarrhea, hypothyroid, gerd, mood disorder. She presented with several days worsening of her chronic diarrhea, unable to rehydrate or have significant po intake due to ongoing dental pain. She has been taking nsaids for her pain and has not taken imodium recently. Diarrhea is watery, non bloody, some crampy pain. Came to ED. for ongoing weakness. Database: WBC 9.1, HGB 8.6, HCT 26.2, PLT 300. MARII: BUN 50, creatinine 2.27 and hypomagnesemia 1.1. stool pcr pending. Review of Systems 2 Review of Systems: Yes all other systems are reviewed and are negative PMFSH Medical History: 1. Hx of multiple myeloma: In january, She had presented with right shoulder pain. Was noted to have a lytic lesion on the x-ray. Her total protein level was elevated at 9. Concern was multiple myeloma. Further evaluation was carried out and is as follows: IMFIXS IgG 487 L IgA 1997 H IgM 6 L IMFIXS INTERP IgA kappa monoclonal band present. B-2 MICROGLOB 7.86. Skeletal survey revealed: IMPRESSION: Multiple lytic foci are seen, including within the calvarium, left 11th rib, the proximal left humerus, the clavicles and the bilateral pubic arches. A known lytic lesion within the right scapula is less well appreciated than on prior examinations. Again, the findings suggest possible metastases. A bone marrow aspiration and biopsy from March 05, 2017: THE BIOPSY, PARTICLE SECTION, AND ASPIRATE SMEARS ARE ALL ADEQUATE FOR EVALUATION. THE BONE MARROW IS MODERATELY HYPERCELLULAR AND IS REMARKABLE FOR A DIFFUSE INFILTRATE OF PLASMA CELLS, PREDOMINANTLY MATURE FORMS, ESTIMATED ON AN IMMUNOSTAIN FOR CD138 TO COMPRISE 60-70% OF THE NUCLEATED CELLULAR ELEMENTS. A KAPPA/LAMBDA DOUBLE IMMUNOSTAIN DEMONSTRATES KAPPA CLONALITY. 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 MEGAKARYOCYTES APPEAR TO BE PRESENT IN ADEQUATE NUMBERS AND APPEAR MORPHOLOGICALLY UNREMARKABLE. RETICULIN FIBERS APPEAR TO BE DIFFUSELY INCREASED IN ASSOCIATION WITH THE PLASMA CELL INFILTRATE. IRON STORES APPEAR TO BE DECREASED. THE FINDINGS ARE CONSISTENT WITH PLASMA CELL MYELOMA. She was started on RVD chemotherapy along with denosumab. 2. Depression 3. H/O gastroesophageal reflux (GERD) 4. Hypothyroidism Surgical History: H/O tooth extraction History of bone marrow biopsy History of cholecystectomy Family History: Daughter Diabetes Thyroid cancer. Social history: She does not work. She is a . Review of Systems - Constitutional Reports no additional constitutional complaints, Denies fever(s), Reports weakness, Reports weight loss - Eyes Reports no additional eye complaints - ENT Reports no additional ear, nose, mouth, and throat complaints - Cardiovascular Reports no additional cardiovascular complaints - Respiratory Reports no additional respiratory complaints - Gastrointestinal Reports no additional gastrointestinal complaints - Genitourinary Reports no additional female genitourinary complaints - Musculoskeletal Reports no additional musculoskeletal complaints - Integumentary/Breasts Skin/Breast: Reports no additional skin complaints - Neurologic Reports no additional neurologic complaints - Psychiatric Reports no additional psychiatric complaints - Endocrine Reports no additional endocrine complaints - Hematologic/Lymphatic Reports no additional hematologic/lymphatic complaints - Allergic/Immunologic Reports no additional allergic/immunologic complaints Oncology Screenings - ECOG Performance Status ECOG Performance Status: 1 [facility] Medical History: Medical History (Last Reviewed 02/27/24 @ 23:26 by Lima Wharton MD) Depression H/O gastroesophageal reflux (GERD) Hx of multiple myeloma Hypothyroidism Functional capacity: uses cane/walker Patient : No Family History: Family History (Last Reviewed 02/27/24 @ 23:26 by Lima Wharton MD) Daughter Diabetes Thyroid cancer Surgical History: Surgical History (Last Reviewed 02/27/24 @ 23:26 by Lima Wharton MD) H/O tooth extraction History of bone marrow biopsy History of cholecystectomy Social History: Social History (Last Reviewed 02/27/24 @ 23:26 by Lima Wharton MD) Living Situation History: Household Members: Family Household Members Other:: adult son Housing: Apartment Are you a primary certified caregiver to a significant other at home: No Do you presently have visiting nurse or other home services: Yes Tobacco History: Patient Tobacco Use Status: Current everyday Tobacco Tobacco use type: Cigarette Years Smoked: 20 e-Cigarette/Vaping Use: Never Used Second Hand Smoke Exposure: No Substance Use History: Substance Use Type: Marijuana Advance Directives: Advance Directives Date on File: 03/15/21 Occupation Assessmet: service: No Current occupational status: unemployed Home Medications and Allergies Current Medications: Current Medications Acetaminophen (Acetaminophen 325 Mg Tablet) 650 mg PO Q6H PRN PRN Reason: Pain, Mild (Pain Scale 1-3) Last Admin: 02/26/24 23:14 Dose: 650 mg Aspirin (Aspirin 81 Mg Tab.Chew) 81 mg PO DAILY [facility] Last Admin: 02/27/24 11:12 Dose: 81 mg Calcium Carbonate (Calcium Carbonate 500 Mg Tablet) 500 mg PO TID [facility] Last Admin: 02/27/24 15:14 Dose: 500 mg Fluoxetine HCl (Fluoxetine Hcl 20 Mg Capsule) 40 mg PO DAILY [facility] Last Admin: 02/27/24 11:12 Dose: 40 mg Heparin Sodium (Porcine) (Heparin Sodium,Porcine 5,000 Unit/Ml Vial) 5,000 unit SUBCUT Q12H [facility] Last Admin: 02/27/24 06:00 Dose: Not Given Ampicillin Sodium/Sulbactam (Sodium 3 gm/ Sodium Chloride) 100 mls @ 200 mls/hr IV Q12H [facility] Last Infusion: 02/27/24 11:49 Dose: Infused Vancomycin HCl 750 mg/ Sodium (Chloride) 265 mls @ 265 mls/hr IV Q24H [facility] Last Infusion: 02/27/24 16:12 Dose: Infused Levothyroxine Sodium (Levothyroxine Sodium 75 Mcg Tablet) 75 mcg PO DAILY@0600 [facility] Last Admin: 02/27/24 06:00 Dose: Not Given Loperamide HCl (Loperamide Hcl 2 Mg Capsule) 2 mg PO Q4H PRN PRN Reason: Loose Stool Magnesium Oxide (Magnesium Oxide 400 Mg Tablet) 800 mg PO TID [facility] Last Admin: 02/27/24 15:14 Dose: 800 mg Mirtazapine (Mirtazapine 30 Mg Tablet) 30 mg PO BEDTIME [facility] Last Admin: 02/26/24 20:25 Dose: 30 mg Oxycodone HCl (Oxycodone Hcl Immed Release 5 Mg Tablet) 5 mg PO Q4H PRN PRN Reason: Pain, Severe (Pain Scale 7-10) Last Admin: 02/27/24 15:23 Dose: 5 mg Pharmacy Consult (Consult Rx Vancomycin Dosing) 1 each MISCELLANE DAILY PRN PRN Reason: Consult order Potassium Chloride (Potassium Chloride Packet 20 Meq Packet) 20 meq PO DAILY [facility] Last Admin: 02/27/24 11:12 Dose: 20 meq Sodium Bicarbonate (Sodium Bicarbonate 650 Mg Tablet) 1,300 mg PO BID [facility] Last Admin: 02/27/24 11:11 Dose: 1,300 mg Sodium Chloride (0.9 % Sodium Chloride Flush 3 Ml Syringe) 3 ml IVFLUSH QSHIFT [facility] Last Admin: 02/27/24 15:14 Dose: 3 ml Home Medications ?Medication ?Instructions ?Recorded ?Confirmed ?Type levothyroxine 75 mcg tablet 75 mcg PO DAILY 10/27/20 02/25/24 History aspirin 81 mg chewable tablet 81 mg PO DAILY 12/16/20 02/25/24 History mirtazapine 30 mg tablet 30 mg PO BEDTIME 12/16/20 02/25/24 History omeprazole 20 mg capsule,delayed 1 cap PO DAILY 05/11/22 02/25/24 History release oxycodone 10 mg tablet 1 tab PO Q12H 05/11/22 02/25/24 History fluoxetine 40 mg capsule 1 cap PO DAILY 05/12/22 02/25/24 History loperamide 2 mg tablet 2 mg PO Q4H PRN Loose Stool 02/25/24 02/25/24 History Allergies Allergy/AdvReac Type Severity Reaction Status Date / Time No Known Allergies Allergy Verified 02/25/24 11:51 [No Known Allergies*] Physical Exam Vital signs: Vital Signs Temp 97.1 F 02/27/24 15:37 Pulse 57 02/27/24 15:37 Resp 16 02/27/24 15:37 BP 149/66 H 02/27/24 15:37 Pulse Ox 99 02/27/24 15:37 O2 Del Method Room Air 02/27/24 15:37 Intake & Output 02/26/24 02/27/24 02/27/24 18:59 06:59 18:59 Intake Total 0 / 3180 1100 / 3180 398.333 / 398.333 Balance 2079 / 3180 1100 / 3180 398.333 / 398.333 Intake: Intake, Oral Amount 480 / 480 Intake, IV Amount 1600 / 2700 1100 / 2700 398.333 / 398.333 Ampicillin Sodium/Sulbactam Na 100 / 200 100 / 200 100 / 100 3 gm In 0.9 % Sodium Chloride 100 ml @ 200 mls/hr IV Q12H [facility] Rx#:[id number] vancomycin HCL 1,500 mg In 0.9 500 / 500 % Sodium Chloride 500 ml @ 333. 333 mls/hr IV ONCE ONE Rx#: [id number] vancomycin HCL 750 mg In 0.9 % 265 / 265 Sodium Chloride 250 ml @ 265 mls/hr IV Q24H [facility] Rx#: [id number] Lactated Ringers 1,000 ml @ 100 1000 / 2000 1000 / 2000 33.333 / 33.333 mls/hr IVCONT .Q10H [facility] Rx#: [id number] Other: Meal Refused No Breakfast % Eaten 100% Lunch % Eaten 75% Dinner % Eaten 100% Number of Incontinent Voids 1 0 0 Number of Bowel Movements 1 0 Urine incon Stool Incontinent Stool Color Brown Stool Consistency Soft Weight 64.9 kg - Constitutional Present: moderate distress - Routine HEENT Exam Head: Present: normal inspection, normocephalic ENT: Present: mucous membranes moist - Routine Neck Exam Present: supple - Routine Respiratory Exam Present: CTAB - Routine Cardiovascular Exam Cardiovascular: Present: RRR, S1, S2 - Routine Abdominal Exam Present: normal bowel sounds, nontender - Routine Extremities Exam Present: nontender - Routine Skin Exam Present: intact Hem/Onc Consult Result - Labs CBC & Chem 7: 03/01/24 06:03 03/02/24 05:21 Labs: Short CBC 02/27/24 02/27/24 Range/Units 05:59 12:51 WBC 9.0 9.1 (4.8-10.8) X10*3/uL Hgb 7.2 L 8.6 L (12.0-16.0) g/dl Hct 21.8 L 26.2 L D (37.0-47.0) % Plt Count 271 300 (160-400) X10*3/uL BMP 02/27/24 05:59 Sodium 140 Potassium 3.4 Chloride 117 H Carbon Dioxide 18 L BUN 32 H Creatinine 0.90 Calcium 8.4 D Liver Function 02/27/24 Range/Units 05:59 Total Bilirubin 0.1 (0.0-1.0) mg/dL Direct Bilirubin < 0.2 (0.0-0.5) mg/dL AST 11 (5-31) U/L ALT 7 (0-31) U/L Alkaline Phosphatase 69 (39-117) U/L Albumin 2.5 L (3.5-5.0) g/dL Assessment and Plan Patient Active problem list reviewed?: Yes (1) Multiple myeloma Status: Acute Assessment and plan: This is a pleasant 78 year-old lady, who initially presented in January of 2017, with right shoulder pain. She was noted to have an expansile, lytic lesion with cortical erosion within the scapular spine, with associated pathologic fracture. Additional lytic lesion within the proximal aspect of the right second rib. She was diagnosed with Multiple Myeloma. Her SIEP was abnormal for IgA kappa monoclonal protein. Free light chain ratio was abnormal as well. B2 microglobulin was elevated at 8. Her skeletal survey was abnormal. Her bone marrow confirmed multiple myeloma, with 50-70% abnormal plasma cells. She was started on RVD, April 29 2017. She has responded well. 10/08/22: SIEP: IgG 1565, Free Light chain ratio: 1.43. Calcium is 8. Over past few months, her teeth started gradually falling. I was concerned about osteonecrosis. I checked xray of the jaw on 10/26/23: 1. Lucency projecting over the right calvarium and right mandibular ramus may reflect myelomatous lesions. Further evaluation with CT is recommended. 2. No acute fracture or dislocation. If there is concern for radiographically occult fracture, CT is recommended. Scan of the face from 12/05/23: ADDITIONAL RELEVANT FINDINGS: No evidence of maxillofacial bone fractures. The zygomatic arches remain intact. No nasal bone fracture. No evidence of mandibular or maxillary fracture. The maxilla is edentulous. There is evidence of multiple anterior mandibular tooth extractions. Unerupted left mandibular third molar. Small periapical lucency involving a left mandibular incisor. The visualized mastoid air cells and middle ear cavities remain well aerated. Limited evaluation of the intracranial structures without significant abnormalities. The premaxillary, retromaxillary, pterygopalatine fossa, temporal fossa, and parapharyngeal adipose tissue is maintained. No demonstrated soft tissue abnormalities within the intrinsic tissues of the tongue. IMPRESSION: No suspicious mandibular lesion. SIEP: No monoclonal protein. Free light chain ratio: 1.51. on 12/07/22. From 03/07 her SIEP revealed: No monoclonal spike. I discussed with the oral surgeon. She was started back on the denosumab, on 03/07. SIEP: No monoclonal spike. On 04/04, Free light chain ratio: 1.10. She then developed 0NJ. She has no teeth in the lower mandible and was on courses of antibiotic with mouthwash without much response. The dentist had recommended IV antibiotics. Facial imaging studies were done on 06/03/2023: Persistent sockets of the mandibular incisors and right canine. Enamel erosion of the mandibular right 1st premolar. Surrounding these odontogenic changes, there is increasing geographic lucency within the symphyseal/right parasymphyseal region of the mandible. Mild soft tissue edema surrounding this region of the chin without demonstrated discrete drainable fluid collection. This appearance is nonspecific but could be seen with avascular necrosis or early infectious etiologies in the appropriate clinical settings. Her mouth improved after completion of the antibiotics. The dentist had since cleared her to continue on the denosumab. However it was not restarted. She was supposed to continue to follow-up with the oral surgeon in [place] however she lost her [employer] insurance and was not able to go back for further treatments. Her granddaughter was supposed to call them, to set up an appointment. In view of the hypocalcemia and question that she may need further oral surgery, I elected to hold off on the denosumab. She now presented with dental pain. One of her teeth and a piece of bone came out last night. CT scan of the face revealed: - There is significantly worsening erosion and fragmentation involving the mandibular symphysis and anterior mandibular bodies bilaterally with adjacent soft tissue swelling. There is a pathologic fracture coursing through the partially eroded anterior right mandible towards the midline mandibular symphysis. Findings could be the sequela of extensive osteomyelitis and/or osteonecrosis in the appropriate clinical context. Accounting for probable infectious or inflammatory soft tissue swelling, no definite discrete mass lesion is identified though assessment is limited. Cellulitic changes extend into the submental region and there is right submental skin thickening that can be clinically correlated. - There is lucency surrounding the roots of the residual mandibular premolars bilaterally, partially uncovered into adjacent eroded bone. 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 Unfortunately it appears that she has osteomyelitis/osteonecrosis. She had not kept up her appointments with the oral surgeon in [place]. Meanwhile her myeloma has been under control. PLAN: She has been started on broad-spectrum IV antibiotics. ID consult: Recommended to continue Unasyn and vancomycin. She will need to go back to the oral surgeon in [place] for further recommendations. Would need protracted antibiotic therapy. Would hold off on the Revlimid during her hospitalization. Likely contributing to the diarrhea. Thank you for this consult, I will follow along with you, CC: Chemo Tomas - Time Spent With Patient Time Spent with Patient (in minutes): 30
[2024-02-27] MEDS: Mirtazapine 30 MG TABLET PO (19:38)
[2024-02-27] MEDS: Acetaminophen 325 MG TABLET 650 MG PO (19:38)
[2024-02-27 19:53] VITALS: BP 145/68; PULSE 58; RESP 16; TEMP 36.4; O2SAT 98
[2024-02-27] MEDS: Chlorhexidine Gluc Oral Rinse 15 ML MOUTHWASH BUCCAL (21:13)
--- NOTE | 2024-02-27 23:23 | P.CNID_ITS ---
History of Present Illness Data of Consult Service Date: 02/27/24 Requesting physician: Wagner Lee Primary Care Provider: Erika Delgado MD HPI Reason for consult: jaw OM She presents with discomfort and right jaw discomfort and looks like draining sinus. She has no fever or chills. She has jaw erosion She has multiple myeloma. She didnt fall by repots.'She has no fever. Review of Systems 2 Review of Systems: Yes all other systems are reviewed and are negative PMFSH Past Medical History Medical History Depression H/O gastroesophageal reflux (GERD) Hx of multiple myeloma Hypothyroidism Family History Family History Daughter Diabetes Thyroid cancer Family history: reviewed and not pertinent Surgical History Surgical History H/O tooth extraction History of bone marrow biopsy History of cholecystectomy Social History Social History Household Members: Family Household Members Other:: adult son Housing: Apartment Are you a primary wound care coordinator to a significant other at home: No Do you presently have visiting nurse or other home services: Yes Alcohol intake: never Comment: sleeping Patient Tobacco Use Status: Current everyday Tobacco user Tobacco use type: Cigarette Years Smoked: 20 e-Cigarette/Vaping Use: Never Used Second Hand Smoke Exposure: No Substance Use Type: Marijuana Advance Directives Date on File: 03/15/21 service: No Current occupational status: unemployed Meds Allergies Allergy/AdvReac Type Severity Reaction Status Date / Time No Known Allergies Allergy Verified 02/25/24 11:51 [No Known Allergies*] Active Medications: Current Medications Acetaminophen (Acetaminophen 325 Mg Tablet) 650 mg PO Q6H PRN PRN Reason: Pain, Mild (Pain Scale 1-3) Last Admin: 02/27/24 19:38 Dose: 650 mg Aspirin (Aspirin 81 Mg Tab.Chew) 81 mg PO DAILY [facility] Last Admin: 02/27/24 11:12 Dose: 81 mg Calcium Carbonate (Calcium Carbonate 500 Mg Tablet) 500 mg PO TID [facility] Last Admin: 02/27/24 19:38 Dose: 500 mg Chlorhexidine Gluconate (Chlorhexidine Gluc Oral Rinse 15 Ml Mouthwash) 15 ml BUCCAL TID [facility] Last Admin: 02/27/24 21:13 Dose: 15 ml Fluoxetine HCl (Fluoxetine Hcl 20 Mg Capsule) 40 mg PO DAILY [facility] Last Admin: 02/27/24 11:12 Dose: 40 mg Heparin Sodium (Porcine) (Heparin Sodium,Porcine 5,000 Unit/Ml Vial) 5,000 unit SUBCUT Q12H [facility] Last Admin: 02/27/24 06:00 Dose: Not Given Ampicillin Sodium/Sulbactam (Sodium 3 gm/ Sodium Chloride) 100 mls @ 200 mls/hr IV Q12H [facility] Last Admin: 02/27/24 23:06 Dose: 200 mls/hr Vancomycin HCl 750 mg/ Sodium (Chloride) 265 mls @ 265 mls/hr IV Q24H [facility] Last Infusion: 02/27/24 16:12 Dose: Infused Levothyroxine Sodium (Levothyroxine Sodium 75 Mcg Tablet) 75 mcg PO DAILY@0600 [facility] Last Admin: 02/27/24 06:00 Dose: Not Given Loperamide HCl (Loperamide Hcl 2 Mg Capsule) 2 mg PO Q4H PRN PRN Reason: Loose Stool Magnesium Oxide (Magnesium Oxide 400 Mg Tablet) 800 mg PO TID [facility] Last Admin: 02/27/24 19:38 Dose: 800 mg Mirtazapine (Mirtazapine 30 Mg Tablet) 30 mg PO BEDTIME [facility] Last Admin: 02/27/24 19:38 Dose: 30 mg Oxycodone HCl (Oxycodone Hcl Immed Release 5 Mg Tablet) 5 mg PO Q4H PRN PRN Reason: Pain, Severe (Pain Scale 7-10) Last Admin: 02/27/24 19:38 Dose: 5 mg Pharmacy Consult (Consult Rx Vancomycin Dosing) 1 each MISCELLANE DAILY PRN PRN Reason: Consult order Potassium Chloride (Potassium Chloride Packet 20 Meq Packet) 20 meq PO DAILY [facility] Last Admin: 02/27/24 11:12 Dose: 20 meq Sodium Bicarbonate (Sodium Bicarbonate 650 Mg Tablet) 1,300 mg PO BID [facility] Last Admin: 02/27/24 19:38 Dose: 1,300 mg Sodium Chloride (0.9 % Sodium Chloride Flush 3 Ml Syringe) [facility] Admin: 02/27/24 19:40 Dose: 3 ml Home Medications ?Medication ?Instructions ?Recorded ?Confirmed ?Last Taken ?Type levothyroxine 75 mcg tablet 75 mcg PO DAILY 10/27/20 02/25/24 11/02/20 07:00 History aspirin 81 mg chewable tablet 81 mg PO DAILY 12/16/20 02/25/24 Unknown History mirtazapine 30 mg tablet 30 mg PO BEDTIME 12/16/20 02/25/24 Unknown History omeprazole 20 mg capsule,delayed 1 cap PO DAILY 05/11/22 02/25/24 Unknown History release oxycodone 10 mg tablet 1 tab PO Q12H 05/11/22 02/25/24 Unknown History fluoxetine 40 mg capsule 1 cap PO DAILY 05/12/22 02/25/24 Unknown History loperamide 2 mg tablet 2 mg PO Q4H PRN Loose Stool 02/25/24 02/25/24 Unknown History Physical Exam 2 Vital Signs: Vital Signs: Last Vital Signs Temp 97.6 F 02/27/24 19:53 Pulse 58 02/27/24 19:53 Resp 16 02/27/24 19:53 BP 145/68 H 02/27/24 19:53 Pulse Ox 98 02/27/24 19:53 O2 Del Method Room Air 02/27/24 19:53 BMI result Body Mass Index 23.8 Const: General: cooperative HEENT: Other: swelling right jaw There is fullness area and concern over OM, Head: Yes normal to inspection Face and sinus: Yes normal facial exam Mouth: Normal oral and palatal mucosa present Teeth and gingiva: dentition normal Eyes: General: appearance normal, both eyes and all related structures P upils: Equal, round and reactive pupils present Resp: Effort & Inspection: normal respiratory effort Cardio: Rate: regular rate Rhythm: regular rhythm GI: Palpation (GI): Soft to palpation and nontender : General: Yes no CVA tenderness Back/Spine/Pelvis: Back: no CVA tenderness Skin: General skin exam: no rashes or lesions noted Neuro: Other: not able to voice complaints General: moves all extremities Cranial nerves: Yes Equal, round and reactive pupils present Extrem: General: Yes normal to inspection Psych: Appearance: grossly normal Results Labs 02/27/24 12:51 02/27/24 05:59 Labs: Short CBC 02/27/24 02/27/24 Range/Units 05:59 12:51 WBC 9.0 9.1 (4.8-10.8) X10*3/uL Hgb 7.2 L 8.6 L (12.0-16.0) g/dl Hct 21.8 L 26.2 L D (37.0-47.0) % Plt Count 271 300 (160-400) X10*3/uL BMP 02/27/24 05:59 Sodium 140 Potassium 3.4 Chloride 117 H Carbon Dioxide 18 L BUN 32 H Creatinine 0.90 Calcium 8.4 D Liver Function 02/27/24 Range/Units 05:59 Total Bilirubin 0.1 (0.0-1.0) mg/dL Direct Bilirubin < 0.2 (0.0-0.5) mg/dL AST 11 (5-31) U/L ALT 7 (0-31) U/L Alkaline Phosphatase 69 (39-117) U/L Albumin 2.5 L (3.5-5.0) g/dL Microbiology Microbiology Results: Microbiology 02/25/24 14:27 Blood - Venous Blood Culture - Preliminary No growth after 48 hours. 02/25/24 14:04 Blood - Venous Blood Culture - Preliminary No growth after 48 hours. 02/26/24 18:45 Mouth Gram Stain - Final Assessment and Plan (1) Multiple myeloma: Status: Acute (2) Infection of tooth socket: Status: Acute Plan He has possible OM,possible staph ,strp anerobes Agree with hospitalist for Unasyn and Vancomycin for now.
[2024-02-27 23:57] VITALS: BP 188/79; PULSE 60; RESP 20; TEMP 36.1; O2SAT 97
[2024-02-28 03:43] VITALS: BP 139/69; PULSE 61; RESP 20; TEMP 36.1; O2SAT 96
[2024-02-28] MEDS: Levothyroxine Sodium 75 MCG TABLET PO (05:35)
[2024-02-28 07:00] LABS: Hematocrit 21.7 % (37.0-47.0); Hemoglobin 7.3 g/dl (12.0-16.0); Mean Corpuscular HGB Conc 33.6 g/dl (31.0-35.0); Mean Corpuscular Hemoglobin 28.2 pg (27.0-33.0); Mean Corpuscular Volume 83.8 fL (80.0-98.0); Mean Platelet Volume 10.5 fL (9.4-12.3); Platelet Count 264 X10*3/uL (160-400); Red Blood Count 2.59 X10*6/uL (4.20-5.50); Red Cell Distribution Width 15.2 % (11.0-16.0); White Blood Count 7.7 X10*3/uL (4.8-10.8)
[2024-02-28 07:15] LABS: Anion Gap 8 (12-20); Blood Urea Nitrogen 24 mg/dL (9-16); Calcium 8.7 mg/dL (8.4-10.2); Carbon Dioxide 23 mmol/L (22-29); Chloride 116 mmol/L (96-108); Creatinine Clr Calc Pharmacy 51.9; Estimated Glomerular Filt Rate > 60; Glucose Random 99 mg/dL (60-115); Potassium 3.6 mmol/L (3.3-5.1); Sodium 143 mmol/L (135-145)
[2024-02-28 07:37] VITALS: BP 166/74; PULSE 52; RESP 20; TEMP 36.8; O2SAT 95
[2024-02-28 08:43] LABS: Appearance Urine Clear; Color Urine Yellow; Glucose Urine UA Negative (Negative); Leukocyte Esterase Urine Negative (Negative); Nitrite Urine Negative (Negative); Urine Blood Negative (Negative); Urine Ketones Negative (Negative); Urine Protein Trace mg/dL (Neg-Trace)
[2024-02-28] MEDS: oxyCODONE HCl Immed Release 5 MG TABLET PO ×2 (09:36→13:23)
[2024-02-28] MEDS: Chlorhexidine Gluc Oral Rinse 15 ML MOUTHWASH BUCCAL ×3 (09:36→20:40)
[2024-02-28] MEDS: FLUoxetine HCl 20 MG CAPSULE 40 MG PO (09:37)
[2024-02-28] MEDS: Magnesium Oxide 400 MG TABLET 800 MG PO ×3 (09:37→20:39)
[2024-02-28] MEDS: Potassium Chloride Packet 20 MEQ PACKET PO (09:37)
[2024-02-28] MEDS: 0.9 % Sodium Chloride Flush 3 ML SYRINGE IVFLUSH ×3 (09:37→20:48)
[2024-02-28] MEDS: Sodium Bicarbonate 650 MG TABLET 1300 MG PO (09:37)
[2024-02-28 11:54] VITALS: BP 199/87; PULSE 53; RESP 20; TEMP 36.7; O2SAT 97
[2024-02-28] MEDS: Ampicillin Sodium/Sulbactam Na 3 GM in 0.9 % Sodium Chloride 100 ML IV ×2 (12:06→23:14)
--- NOTE | 2024-02-28 12:34 | MHC.CM.PN ---
Pt is not ready for DC. She may need 6 weeks of IV ABX, possibly at SNF. CM will follow and assist with DC plan.
--- NOTE | 2024-02-28 13:40 | HO.PM.IMPN ---
Subjective Subjective Date of Service: 02/28/24 Interval History: Seen and evaluated this morning reporting right jaw pain with drainage No fever or chills Hb keep fluctuating 7-8 No diarrhea overnight Review of Systems Review of Systems: Yes all other systems are reviewed and are negative Physical Exam Vital Signs: Vital Signs: Last Vital Signs Temp 98.0 F 02/28/24 11:54 Pulse 53 02/28/24 11:54 Resp 20 02/28/24 11:54 BP 199/87 H 02/28/24 11:54 Pulse Ox 97 02/28/24 11:54 O2 Del Method Room Air 02/28/24 11:54 BMI result Body Mass Index 23.8 Const: Other: Constitutional : Awake, interactive, not in distress Mouth: Right molar fell, drainage noted, open space under Teeth 27/28 with drainage coming out along with bone. losing many teeth Neck : Normal inspection, Supple Cardiovascular : RRR, no JVP, no lower extremity edema Respiratory : good bilateral air entry, no crackles, wheezes or rhonchi Gastrointestinal: soft, lax, Normal bowel sounds, Non tender Skin : Warm, Dry Neurological : Alert & oriented x3, No focal deficit Objective Data Active Medications Acetaminophen (Acetaminophen 325 Mg Tablet) 650 mg PO Q6H PRN PRN Reason: Pain, Mild (Pain Scale 1-3) Last Admin: 02/27/24 19:38 Dose: 650 mg Documented By: JOSE MARIA Aspirin (Aspirin 81 Mg Tab.Chew) 81 mg PO DAILY [facility] Last Admin: 02/27/24 11:12 Dose: 81 mg Documented By: KATIE Calcium Carbonate (Calcium Carbonate 500 Mg Tablet) 500 mg PO TID [facility] Last Admin: 02/28/24 13:22 Dose: 500 mg Documented By: KATIE Chlorhexidine Gluconate (Chlorhexidine Gluc Oral Rinse 15 Ml Mouthwash) 15 ml BUCCAL TID [facility] Last Admin: 02/28/24 13:22 Dose: 15 ml Documented By: KATIE Fluoxetine HCl (Fluoxetine Hcl 20 Mg Capsule) 40 mg PO DAILY [facility] Last Admin: 02/28/24 09:37 Dose: 40 mg Documented By: KATIE Heparin Sodium (Porcine) (Heparin Sodium,Porcine 5,000 Unit/Ml Vial) 5,000 unit SUBCUT Q12H [facility] Last Admin: 02/27/24 06:00 Dose: Not Given Documented By: ERIC Non-Admin Reason: Patient Asleep Ampicillin Sodium/Sulbactam (Sodium 3 gm/ Sodium Chloride) 100 mls @ 200 mls/hr IV Q12H [facility] Last Infusion: 02/28/24 12:36 Dose: Infused Documented By: KATIE Vancomycin HCl 750 mg/ Sodium (Chloride) 265 mls @ 265 mls/hr IV Q24H [facility] Last Infusion: 02/27/24 16:12 Dose: Infused Documented By: KATIE Levothyroxine Sodium (Levothyroxine Sodium 75 Mcg Tablet) 75 mcg PO DAILY@0600 [facility] Last Admin: 02/28/24 05:35 Dose: 75 mcg Documented By: JOSE MARIA Loperamide HCl (Loperamide Hcl 2 Mg Capsule) 2 mg PO Q4H PRN PRN Reason: Loose Stool Magnesium Oxide (Magnesium Oxide 400 Mg Tablet) 800 mg PO TID [facility] Last Admin: 02/28/24 13:23 Dose: 800 mg Documented By: KATIE Mirtazapine (Mirtazapine 30 Mg Tablet) 30 mg PO BEDTIME [facility] Last Admin: 02/27/24 19:38 Dose: 30 mg Documented By: JOSE MARIA Oxycodone HCl (Oxycodone Hcl Immed Release 5 Mg Tablet) 5 mg PO Q4H PRN PRN Reason: Pain, Severe (Pain Scale 7-10) Last Admin: 02/28/24 13:23 Dose: 5 mg Documented By: KATIE Pharmacy Consult (Consult Rx Vancomycin Dosing) 1 each MISCELLANE DAILY PRN PRN Reason: Consult order Potassium Chloride (Potassium Chloride Packet 20 Meq Packet) 20 meq PO DAILY [facility] Last Admin: 02/28/24 09:37 Dose: 20 meq Documented By: KATIE Sodium Bicarbonate (Sodium Bicarbonate 650 Mg Tablet) 1,300 mg PO BID [facility] Last Admin: 02/28/24 09:37 Dose: 1,300 mg Documented By: KATIE Sodium Chloride (0.9 % Sodium Chloride Flush 3 Ml Syringe) 3 ml IVFLUSH QSHIFT [facility] Last Admin: 02/28/24 09:37 Dose: 3 ml Documented By: KATIE Labs 02/28/24 06:40 02/28/24 06:40 Labs: Laboratory Results - last 24 hr 02/28/24 02/28/24 02/28/24 06:40 06:40 06:40 MCV 83.8 MCH 28.2 MCHC 33.6 RDW 15.2 Plt Count 264 MPV 10.5 Absolute Nucleated RBC 0.000 Nucleated RBC % (auto) 0.0 Anion Gap 8 L Estim Creat Clear Calc Cancelled 51.9 Estimated GFR Cancelled > 60 Random Glucose 99 Calcium 8.7 Urine Color Urine Appearance Urine pH Ur Specific Breeding Urine Protein Urine Glucose (UA) Urine Ketones Urine Blood Urine Nitrite Ur Leukocyte Esterase 02/28/24 08:20 MCV MCH MCHC RDW Plt Count MPV Absolute Nucleated RBC Nucleated RBC % (auto) Anion Gap Estim Creat Clear Calc Estimated GFR Random Glucose Calcium Urine Color Yellow Urine Appearance Clear Urine pH 6.0 Ur Specific Breeding 1.020 Urine Protein Trace Urine Glucose (UA) Negative Urine Ketones Negative Urine Blood Negative Urine Nitrite Negative Ur Leukocyte Esterase Negative Microbiology Microbiology Results: Microbiology 02/26/24 18:45 Gram Stain - Final Mouth Routine Culture - Preliminary Culture in progress. 02/25/24 14:27 Blood Culture - Preliminary Blood - Venous No growth after 48 hours. 02/25/24 14:04 Blood Culture - Preliminary Blood - Venous No growth after 48 hours. Assessment and Plan (1) Multiple myeloma: Status: Acute (2) Acute on chronic anemia: Status: Acute (3) Infection of tooth socket: Status: Acute (4) Acute kidney injury: Status: Acute Plan 78F PMH multiple myeloma, chronic diarrhea, hypothyroid, gerd, mood disorder, presented with several days worsening of her chronic diarrhea Right jaw osteonecrosis\osteomyelitis Face CT showing suggestive changes A teeth fell off her mouth Significant amount of drainage Continue to Cover with Unasyn and Vanco negative cultures ID input appreciated, likely OM Oncology following follow Vanco trough acute on chronic diarrhea complicated by acute kidney injury and severe hypomagnesemia improved Cr improving to 0.8 monitor magnesium and BMP Imodium acute on chronic anemia Hb dropped to 7.3, fluctuating reported +Ve occult on admission Hold ASA and Heparin check occult stool GI consult if comes back +ve Metabolic acidosis, acute resolved NaHCO3 supplement mood disorder prozac GERD Hold PPI for hypomagnesemia Hypothyroid Synthroid Multiple myeloma Oxycodone, Revlimid DVT prophylaxis SCDs Full code Patient with significant deep mouth infection with Jaw Osteomyelitis requiring IV antibiotics and pending specialist opinion and outpatient plan Quality Stroke Does the patient have a stroke diagnosis?: No VTE Prior VTE?: No VTE Risk Level:: Medical - moderate - high VTE Device Contraindication: Treatment Not Indicated VTE Drug Contraindication: N/A - Med Ordered
[2024-02-28 14:24] LABS: Vancomycin Random 13.3 mcg/mL (15-20)
--- NOTE | 2024-02-28 15:23 | MHC.CM.PN ---
Per MD rounds 6 weeks IV ABX is planned at discharge. [facility] states that family members all work. They will not be able to assist with the home infusion. SNF preferences obtained, referrals have been [facility] to [facility] IV ABX @ SNF. Patient will transport via BLS.
--- NOTE | 2024-02-28 15:50 | HO.PICC ---
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 Following completion of [place] Protocol the skin and soft tissues were anesthetized with 1% Lidocaine plain. Using ultrasound guidance, the right basilic vein access was obtained in a single attempt by this RN. Over an 0.018 wire through peel-away sheath, a 4 monegasque single lumen PASV PICC line was positioned. Catheter length is 37 cm internal length, external length ia at the 0 cm external tung, for a total trimmed length of 37cm. The procedure was performed in S272. Tip verification was performed by Wendy Cerda with Sherlock 3CG. Tip located in SVC. Ultrasound was used to document vein patency and for needle entry. A formal ultrasound picture and cardiac rhythm strip was recorded. Vascular Clinical Services Consultant has released the line for use and it is currently dressed with a StatLock, Tegaderm, and CHG disc. Verification has been performed for blood return and line patency. Arm Circumference: 31 cm Equipment: [employer] PowerPICC Solo Catheter with Sherlock 3 CG Tip Catheter Type: 4 monegasque single lumen PASV PICC Lot #: [id number]
[2024-02-28 16:13] VITALS: BP 148/92; PULSE 60; RESP 20; TEMP 36.3; O2SAT 96
[2024-02-28] MEDS: vancomycin HCL 1,000 MG in 0.9 % Sodium Chloride 250 ML 270 MG IV (16:27)
[2024-02-28] MEDS: amLODIPine Besylate 5 MG TABLET PO (16:27)
[2024-02-28 19:50] VITALS: BP 156/77; PULSE 66; RESP 16; TEMP 36.8; O2SAT 98
[2024-02-28] MEDS: Mirtazapine 30 MG TABLET PO (20:39)
[2024-02-28] MEDS: Sodium Bicarbonate 650 MG TABLET PO (20:40)
[2024-02-28] MEDS: 0.9 % Sodium Chloride Flush 10 ML SYRINGE 5 ML IVFLUSH (20:47)
[2024-02-29] MEDS: Levothyroxine Sodium 75 MCG TABLET PO (05:43)
[2024-02-29 07:03] LABS: Hematocrit 22.4 % (37.0-47.0); Hemoglobin 7.3 g/dl (12.0-16.0); Mean Corpuscular HGB Conc 32.6 g/dl (31.0-35.0); Mean Corpuscular Hemoglobin 28.1 pg (27.0-33.0); Mean Corpuscular Volume 86.2 fL (80.0-98.0); Mean Platelet Volume 10.7 fL (9.4-12.3); Platelet Count 271 X10*3/uL (160-400); Red Cell Distribution Width 15.1 % (11.0-16.0); White Blood Count 6.8 X10*3/uL (4.8-10.8)
[2024-02-29 07:14] LABS: Anion Gap 8 (12-20); Blood Urea Nitrogen 17 mg/dL (9-16); Calcium 8.4 mg/dL (8.4-10.2); Carbon Dioxide 28 mmol/L (22-29); Chloride 108 mmol/L (96-108); Estimated Glomerular Filt Rate > 60; Glucose Random 96 mg/dL (60-115); Potassium 3.6 mmol/L (3.3-5.1); Sodium 140 mmol/L (135-145)
[2024-02-29 07:52] VITALS: BP 156/69; PULSE 68; RESP 16; TEMP 36.4; O2SAT 97
[2024-02-29 09:13] LABS: Iron 30 mcg/dL (30-160); Percent Iron Saturation 17 % (15-50); Total Iron Binding Capacity 177 mcg/dL (228-428); Unsaturated Iron Binding 147 ug/dL
[2024-02-29] MEDS: FLUoxetine HCl 20 MG CAPSULE 40 MG PO (09:14)
[2024-02-29] MEDS: Potassium Chloride Packet 20 MEQ PACKET PO (09:14)
[2024-02-29] MEDS: Chlorhexidine Gluc Oral Rinse 15 ML MOUTHWASH BUCCAL ×3 (09:14→19:34)
[2024-02-29] MEDS: Magnesium Oxide 400 MG TABLET 800 MG PO ×3 (09:14→19:34)
[2024-02-29] MEDS: Sodium Bicarbonate 650 MG TABLET PO ×2 (09:14→19:34)
[2024-02-29] MEDS: amLODIPine Besylate 5 MG TABLET PO (09:15)
[2024-02-29] MEDS: 0.9 % Sodium Chloride Flush 10 ML SYRINGE 5 ML IVFLUSH ×3 (09:17→19:35)
[2024-02-29] MEDS: 0.9 % Sodium Chloride Flush 3 ML SYRINGE IVFLUSH ×3 (09:18→23:54)
--- NOTE | 2024-02-29 10:29 | P.PNIM_ITS ---
Subjective Subjective Date of Service: 02/29/24 Interval History: Seen and evaluated this morning reporting improved right jaw pain with less drainage No fever or chills Hb at 7.3, to transfuse PRBCs No diarrhea overnight Review of Systems Review of Systems: Yes all other systems are reviewed and are negative Physical Exam 2 Vital Signs: Vital Signs: Last Vital Signs Temp 97.6 F 02/29/24 07:52 Pulse 68 02/29/24 07:52 Resp 16 02/29/24 07:52 BP 156/69 H 02/29/24 07:52 Pulse Ox 97 02/29/24 07:52 O2 Del Method Room Air 02/29/24 07:52 BMI result Body Mass Index 23.8 Const: Other: Constitutional : Awake, interactive, not in distress Mouth: Right molar fell, drainage noted, open space under Teeth 27/28 with drainage coming out along with bone. losing many teeth Neck : Normal inspection, Supple Cardiovascular : RRR, no JVP, no lower extremity edema Respiratory : good bilateral air entry, no crackles, wheezes or rhonchi Gastrointestinal: soft, lax, Normal bowel sounds, Non tender Skin : Warm, Dry Neurological : Alert & oriented x3, No focal deficit Objective Data Active Medications Acetaminophen (Acetaminophen 325 Mg Tablet) 650 mg PO Q6H PRN PRN Reason: Pain, Mild (Pain Scale 1-3) Last Admin: 02/27/24 19:38 Dose: 650 mg Documented By: JOSE MARIA Amlodipine Besylate (Amlodipine Besylate 5 Mg Tablet) 5 mg PO DAILY [facility]; Protocol Last Admin: 02/29/24 09:15 Dose: 5 mg Documented By: VERO Aspirin (Aspirin 81 Mg Tab.Chew) 81 mg PO DAILY [facility] Last Admin: 02/27/24 11:12 Dose: 81 mg Documented By: KATIE Calcium Carbonate (Calcium Carbonate 500 Mg Tablet) 500 mg PO TID [facility] Last Admin: 02/29/24 09:14 Dose: 500 mg Documented By: VERO Chlorhexidine Gluconate (Chlorhexidine Gluc Oral Rinse 15 Ml Mouthwash) 15 ml BUCCAL TID [facility] Last Admin: 02/29/24 09:14 Dose: 15 ml Documented By: VERO Fluoxetine HCl (Fluoxetine Hcl 20 Mg Capsule) 40 mg PO DAILY [facility] Last Admin: 02/29/24 09:14 Dose: 40 mg Documented By: VERO Heparin Sodium (Porcine) (Heparin Sodium,Porcine 5,000 Unit/Ml Vial) 5,000 unit SUBCUT Q12H [facility] Last Admin: 02/27/24 06:00 Dose: Not Given Documented By: ERIC Non-Admin Reason: Patient Asleep Ampicillin Sodium/Sulbactam (Sodium 3 gm/ Sodium Chloride) 100 mls @ 200 mls/hr IV Q12H [facility] Last Infusion: 02/29/24 00:00 Dose: Infused Documented By: LILIAN Vancomycin HCl 1,000 mg/ (Sodium Chloride) 270 mls @ 270 mls/hr IV Q24H [facility] Last Infusion: 02/28/24 17:33 Dose: Infused Documented By: AMARJIT Levothyroxine Sodium (Levothyroxine Sodium 75 Mcg Tablet) 75 mcg PO DAILY@0600 [facility] Last Admin: 02/29/24 05:43 Dose: 75 mcg Documented By: LILIAN Loperamide HCl (Loperamide Hcl 2 Mg Capsule) 2 mg PO Q4H PRN PRN Reason: Loose Stool Magnesium Oxide (Magnesium Oxide 400 Mg Tablet) 800 mg PO TID [facility] Last Admin: 02/29/24 09:14 Dose: 800 mg Documented By: VERO Mirtazapine (Mirtazapine 30 Mg Tablet) 30 mg PO BEDTIME [facility] Last Admin: 02/28/24 20:39 Dose: 30 mg Documented By: LILIAN Oxycodone HCl (Oxycodone Hcl Immed Release 5 Mg Tablet) 5 mg PO Q4H PRN PRN Reason: Pain, Severe (Pain Scale 7-10) Last Admin: 02/28/24 13:23 Dose: 5 mg Documented By: KATIE Pharmacy Consult (Consult Rx Vancomycin Dosing) 1 each MISCELLANE DAILY PRN PRN Reason: Consult order Potassium Chloride (Potassium Chloride Packet 20 Meq Packet) 20 meq PO DAILY [facility] Last Admin: 02/29/24 09:14 Dose: 20 meq Documented By: VERO Sodium Bicarbonate (Sodium Bicarbonate 650 Mg Tablet) 650 mg PO BID [facility] Last Admin: 02/29/24 09:14 Dose: 650 mg Documented By: VERO Sodium Chloride (0.9 % Sodium Chloride Flush 3 Ml Syringe) 3 ml IVFLUSH QSHIFT [facility] Last Admin: 02/29/24 09:18 Dose: 3 ml Documented By: VERO Sodium Chloride (0.9 % Sodium Chloride Flush 10 Ml Syringe) 5 ml IVFLUSH TID [facility] Last Admin: 02/29/24 09:17 Dose: 5 ml Documented By: VERO Labs 02/29/24 05:44 02/29/24 05:44 Labs: Laboratory Results - last 24 hr 02/28/24 02/29/24 02/29/24 13:55 05:44 08:10 MCV 86.2 MCH 28.1 MCHC 32.6 RDW 15.1 Plt Count 271 MPV 10.7 Absolute Nucleated RBC 0.000 Nucleated RBC % (auto) 0.0 Anion Gap 8 L Estim Creat Clear Calc 54.0 Estimated GFR > 60 Random Glucose 96 Calcium 8.4 Iron 30 TIBC 177 L % Saturation 17 Unsat Iron Binding 147 Random Vancomycin 13.3 L Blood Type O Positive Antibody Screen NEGATIVE Crossmatch See Detail Microbiology Microbiology Results: Microbiology 02/26/24 18:45 Gram Stain - Final Mouth Routine Culture - Preliminary Culture in progress. Assessment and Plan (1) Multiple myeloma: Status: Acute (2) Acute on chronic anemia: Status: Acute (3) Infection of tooth socket: Status: Acute (4) Osteomyelitis, jaw acute: Status: Acute Plan 78F PMH multiple myeloma, chronic diarrhea, hypothyroid, gerd, mood disorder, presented with several days worsening of her chronic diarrhea Right jaw acute osteomyelitis Face CT showing suggestive changes A teeth fell off her mouth along with jaw bone, sent for pathology Continue to Cover with Unasyn and Vanco negative cultures ID input appreciated, likely OM continue Abx PICC line placed Oncology following follow Vanco trough acute on chronic diarrhea complicated by acute kidney injury and severe hypomagnesemia Cr improving to 0.8 monitor magnesium and BMP Imodium acute on chronic anemia Hb dropped to 7.3, to transfuse 1 unit of blood Iron stores look ok reported +Ve occult on admission Hold ASA and Heparin check occult stool, GI consult if comes back +ve Metabolic acidosis, acute resolved NaHCO3 supplement mood disorder prozac GERD Hold PPI for hypomagnesemia Hypothyroid Synthroid Multiple myeloma Oxycodone, Revlimid DVT prophylaxis SCDs Full code Patient with significant deep mouth infection with Jaw Osteomyelitis requiring IV antibiotics and pending ID plan for OP Abx and outpatient plan Quality Stroke Does the patient have a stroke diagnosis?: No VTE Prior VTE?: No VTE Risk Level:: Medical - moderate - high VTE Device Contraindication: Treatment Not Indicated VTE Drug Contraindication: N/A - Med Ordered
[2024-02-29] MEDS: Ampicillin Sodium/Sulbactam Na 3 GM in 0.9 % Sodium Chloride 100 ML IV ×2 (12:08→23:54)
[2024-02-29] MEDS: oxyCODONE HCl Immed Release 5 MG TABLET PO ×2 (12:09→19:40)
[2024-02-29 12:19] LABS: OBS Int Ctl Valid YES; OBS1 POSITIVE (NEGATIVE)
[2024-02-29 13:07] VITALS: BP 156/71; PULSE 61; RESP 18; TEMP 36.4
[2024-02-29] MEDS: Acetaminophen 325 MG TABLET 650 MG PO (13:11)
[2024-02-29 13:23] VITALS: BP 147/68; PULSE 60; RESP 18; TEMP 36.4
[2024-02-29 15:03] LABS: Vancomycin Random 13.4 mcg/mL (15-20)
--- NOTE | 2024-02-29 15:18 | HE.PHANOTE ---
VANCO DOSE ADJUSTMENT BASED ON SCR AND TROUGH OF 13.4. DOSE CONTINUED AT 1000 Q 24H. NEXT LEVEL 03/01 @1400
[2024-02-29 15:21] VITALS: BP 142/63; PULSE 53; RESP 16; TEMP 36.7; O2SAT 96
[2024-02-29 15:28] VITALS: BP 148/67; PULSE 54; RESP 16; TEMP 36.2
[2024-02-29] MEDS: Pantoprazole Sodium 40 MG/10 ML VIAL IVPUSH (16:13)
[2024-02-29] MEDS: vancomycin HCL 1,000 MG in 0.9 % Sodium Chloride 250 ML 270 MG IV (16:14)
[2024-02-29 19:31] LABS: Ferritin 271 ng/mL (10-250)
[2024-02-29] MEDS: Mirtazapine 30 MG TABLET PO (19:34)
[2024-02-29 19:56] VITALS: BP 160/68; PULSE 56; RESP 16; TEMP 36; O2SAT 98
[2024-02-29] MEDS: Haloperidol Lactate 5 MG/ML VIAL 3 MG IM (23:53)
[2024-03-01] MEDS: oxyCODONE HCl Immed Release 5 MG TABLET PO (03:49)
[2024-03-01] MEDS: Pantoprazole Sodium 40 MG/10 ML VIAL IVPUSH ×2 (05:56→06:01)
[2024-03-01] MEDS: Levothyroxine Sodium 75 MCG TABLET PO ×2 (05:56→06:02)
[2024-03-01 06:08] VITALS: BP 158/70; PULSE 54; RESP 16; TEMP 36.2; O2SAT 94
[2024-03-01 07:01] VITALS: BP 176/88; PULSE 57; RESP 12; TEMP 36.6; O2SAT 97
[2024-03-01] MEDS: Sodium Bicarbonate 650 MG TABLET PO ×2 (07:33→20:37)
[2024-03-01] MEDS: Acetaminophen 325 MG TABLET 650 MG PO (07:33)
[2024-03-01] MEDS: amLODIPine Besylate 5 MG TABLET PO (07:33)
[2024-03-01] MEDS: Magnesium Oxide 400 MG TABLET 800 MG PO ×3 (07:34→20:37)
[2024-03-01] MEDS: FLUoxetine HCl 20 MG CAPSULE 40 MG PO (07:34)
[2024-03-01] MEDS: Chlorhexidine Gluc Oral Rinse 15 ML MOUTHWASH BUCCAL ×3 (07:34→20:37)
[2024-03-01] MEDS: 0.9 % Sodium Chloride Flush 10 ML SYRINGE 5 ML IVFLUSH ×3 (07:35→20:37)
[2024-03-01] MEDS: Potassium Chloride Packet 20 MEQ PACKET PO (07:35)
--- NOTE | 2024-03-01 09:19 | PM.GICN ---
History of Present Illness Data of Consult Service Date: 03/01/24 Requesting physician: Wagner Lee Primary Care Provider: Erika Delgado MD HPI Reason for consult: Anemia diarrhea This is a 78-year-old female with past medical history of multiple myeloma diagnosed in 2017 complicated by osteonecrosis of the jaw, who presented to the hospital on 03/18 severe diarrhea and was found to have MARII as well as progressive anemia. Gastroenterology has been consulted for chronic diarrhea and anemia. Patient was evaluated at bedside and was not able to verbalise the reason for hospitalisation and denied any ongoing diarrhea. From chart review it seems has been having severe diarrhea since at least Nov and brought it up to her oncologist at office visit at todd time as well. This was thought to be 2/2 antibiotic use as well as Revlimid. Recent endoscopy: 10/2020: Gastritis and duodenitis. Poor prep colonoscopy with removal of 12 mm ascending colon polyp. Path: H pylori and tubulovillous adenoma. Recommendation was made to repeat in 1-2 years. Review of Systems Review of Systems: Yes Unobtainable due to mental status PMFSH Past Medical History Medical History Depression H/O gastroesophageal reflux (GERD) Hx of multiple myeloma Hypothyroidism Family History Family History Daughter Diabetes Thyroid cancer Family history: reviewed and not pertinent Surgical History Surgical History H/O tooth extraction History of bone marrow biopsy History of cholecystectomy Social History Social History Household Members: Family Household Members Other:: adult son Housing: Apartment Are you a primary child care lead teacher to a significant other at home: No Do you presently have visiting nurse or other home services: Yes Alcohol intake: never Comment: 1:[address] until 23:00 due to staffing constraints Patient Tobacco Use Status: Current everyday Tobacco user Tobacco use type: Cigarette Years Smoked: 20 e-Cigarette/Vaping Use: Never Used Second Hand Smoke Exposure: No Substance Use Type: Marijuana Advance Directives Date on File: 03/15/21 service: No Current occupational status: unemployed Meds Allergies Allergy/AdvReac Type Severity Reaction Status Date / Time No Known Allergies Allergy Verified 02/25/24 11:51 [No Known Allergies*] Active Medications: Current Medications Acetaminophen (Acetaminophen 325 Mg Tablet) 650 mg PO Q6H PRN PRN Reason: Pain, Mild (Pain Scale 1-3) Last Admin: 03/01/24 07:33 Dose: 650 mg Amlodipine Besylate (Amlodipine Besylate 5 Mg Tablet) 5 mg PO DAILY [facility]; Protocol Last Admin: 03/01/24 07:33 Dose: 5 mg Aspirin (Aspirin 81 Mg Tab.Chew) 81 mg PO DAILY [facility] Last Admin: 02/27/24 11:12 Dose: 81 mg Calcium Carbonate (Calcium Carbonate 500 Mg Tablet) 500 mg PO TID [facility] Last Admin: 03/01/24 07:34 Dose: 500 mg Chlorhexidine Gluconate (Chlorhexidine Gluc Oral Rinse 15 Ml Mouthwash) 15 ml BUCCAL TID [facility] Last Admin: 03/01/24 07:34 Dose: 15 ml Fluoxetine HCl (Fluoxetine Hcl 20 Mg Capsule) 40 mg PO DAILY [facility] Last Admin: 03/01/24 07:34 Dose: 40 mg Heparin Sodium (Porcine) (Heparin Sodium,Porcine 5,000 Unit/Ml Vial) 5,000 unit SUBCUT Q12H [facility] Last Admin: 02/27/24 06:00 Dose: Not Given Ampicillin Sodium/Sulbactam (Sodium 3 gm/ Sodium Chloride) 100 mls @ 200 mls/hr IV Q12H [facility] Last Infusion: 03/01/24 00:51 Dose: Infused Vancomycin HCl 1,000 mg/ (Sodium Chloride) 270 mls @ 270 mls/hr IV Q24H [facility] Last Infusion: 02/29/24 17:24 Dose: Infused Levothyroxine Sodium (Levothyroxine Sodium 75 Mcg Tablet) 75 mcg PO DAILY@0600 [facility] Last Admin: 03/01/24 06:02 Dose: 75 mcg Loperamide HCl (Loperamide Hcl 2 Mg Capsule) 2 mg PO Q4H PRN PRN Reason: Loose Stool Magnesium Oxide (Magnesium Oxide 400 Mg Tablet) 800 mg PO TID [facility] Last Admin: 03/01/24 07:34 Dose: 800 mg Mirtazapine (Mirtazapine 30 Mg Tablet) 30 mg PO BEDTIME [facility] Last Admin: 02/29/24 19:34 Dose: 30 mg Oxycodone HCl (Oxycodone Hcl Immed Release 5 Mg Tablet) 5 mg PO Q4H PRN PRN Reason: Pain, Severe (Pain Scale 7-10) Last Admin: 03/01/24 03:49 Dose: 5 mg Pantoprazole Sodium (Pantoprazole Sodium 40 Mg/10 Ml Vial) 40 mg IVPUSH DAILY@0630 [facility] Last Admin: 03/01/24 06:01 Dose: 40 mg Pharmacy Consult (Consult Rx Vancomycin Dosing) 1 each MISCELLANE DAILY PRN PRN Reason: Consult order Potassium Chloride (Potassium Chloride Packet 20 Meq Packet) 20 meq PO DAILY [facility] Last Admin: 03/01/24 07:35 Dose: 20 meq Sodium Bicarbonate (Sodium Bicarbonate 650 Mg Tablet) 650 mg PO BID [facility] Last Admin: 03/01/24 07:33 Dose: 650 mg Sodium Chloride (0.9 % Sodium Chloride Flush 3 Ml Syringe) 3 ml IVFLUSH QSHIFT [facility] Last Admin: 03/01/24 07:35 Dose: Not Given Sodium Chloride (0.9 % Sodium Chloride Flush 10 Ml Syringe) 5 ml IVFLUSH TID [facility] Last Admin: 03/01/24 07:35 Dose: 5 ml Home Medications ?Medication ?Instructions ?Recorded ?Confirmed ?Last Taken ?Type levothyroxine 75 mcg tablet 75 mcg PO DAILY 10/27/20 02/25/24 11/02/20 07:00 History aspirin 81 mg chewable tablet 81 mg PO DAILY 12/16/20 02/25/24 Unknown History mirtazapine 30 mg tablet 30 mg PO BEDTIME 12/16/20 02/25/24 Unknown History omeprazole 20 mg capsule,delayed 1 cap PO DAILY 05/11/22 02/25/24 Unknown History release oxycodone 10 mg tablet 1 tab PO Q12H 05/11/22 02/25/24 Unknown History fluoxetine 40 mg capsule 1 cap PO DAILY 05/12/22 02/25/24 Unknown History loperamide 2 mg tablet 2 mg PO Q4H PRN Loose Stool 02/25/24 02/25/24 Unknown History Physical Exam Vital Signs: Vital Signs: Last Vital Signs Temp 98 F 03/01/24 07:01 Pulse 57 03/01/24 07:01 Resp 12 03/01/24 07:01 BP 176/88 H 03/01/24 07:01 Pulse Ox 97 03/01/24 07:01 O2 Del Method Room Air 03/01/24 07:01 BMI result Body Mass Index 23.8 Elderly female Erythema and fluctuance on the chin on the right side Abdomen soft, nontender, nondistended Alert, oriented x2, not able to provide complete history with clarity Results Labs 03/01/24 06:03 03/02/24 05:21 Microbiology Microbiology Results: Microbiology 02/26/24 18:45 Mouth Gram Stain - Final 02/26/24 18:45 Mouth Routine Culture - Final 02/25/24 14:27 Blood - Venous Blood Culture - Preliminary No growth after 48 hours. 02/25/24 14:04 Blood - Venous Blood Culture - Preliminary No growth after 48 hours. Assessment and Plan (1) Multiple myeloma: Status: Acute (2) Osteomyelitis, jaw acute: Status: Acute (3) Acute on chronic anemia: Status: Acute (4) Encephalopathy: Status: Acute (5) Chronic diarrhea: Status: Acute (6) Tubulovillous adenoma: Status: Acute Plan Differentials for chronic intermittent diarrhea include antibiotic associated diarrhea, C diff colitis, opportunistic infection, inflammatory colitis such as microscopic. In terms of her anemia, has had chronic anemia, has had NON-iron deficiency anemia with normocytosis since at least 2019, likely related to her multiple myeloma. Initial hemoglobin on arrival of 10, appears to have been secondary to hemoconcentration, as patient also presented with creatinine of 2.27 at that time from dehydration. Baseline appears to be between 7.5-8 and has not had significant drop during hospitalization so far. Underwent 1 unit blood transfusion last evening for ?symptoms with an appropriate increase in H/H. That being said, given her history of tubulovillous adenoma in 2020, can consider outpatient colonoscopy if overall clinical course allows. Naturally probiotic food Plan: -check stool studies for C diff and GI panel -introduced probiotics in her diet, such as active culture yogurt, cottage cheese etc if patient can tolerate -consider contrasted CT Abd/pel if above negative -can review indication for flex sig vs colo depending on above Thank you for allowing me to participate in her care. Please do not hesitate to reach out for questions or concerns. Procedures Date of Service Date of Service: 03/01/24
[2024-03-01 09:24] LABS: Hemoglobin 9.1 g/dl (12.0-16.0); Mean Corpuscular HGB Conc 32.5 g/dl (31.0-35.0); Mean Corpuscular Hemoglobin 27.9 pg (27.0-33.0); Mean Corpuscular Volume 85.9 fL (80.0-98.0); Mean Platelet Volume 10.8 fL (9.4-12.3); Platelet Count 272 X10*3/uL (160-400); Red Blood Count 3.26 X10*6/uL (4.20-5.50); Red Cell Distribution Width 14.6 % (11.0-16.0); White Blood Count 8.7 X10*3/uL (4.8-10.8)
[2024-03-01 09:27] LABS: INTERNATIONAL NORM RATIO 1.1 (0.9-1.1); Prothrombin Time 13.1 SEC (11.1-13.3)
[2024-03-01 11:02] LABS: Creatinine Clr Calc Pharmacy 50.7; Estimated Glomerular Filt Rate > 60
[2024-03-01] MEDS: Butalb/Acetamin/Caff 50/325/40 TABLET 1 TAB PO (11:08)
--- NOTE | 2024-03-01 12:09 | HO.PM.IMPN ---
Subjective Subjective Date of Service: 03/01/24 Interval History: Seen and evaluated this morning reporting improved right jaw pain with less drainage No fever or chills Hb improved to 9.1 No diarrhea overnight Review of Systems Review of Systems: Yes all other systems are reviewed and are negative Physical Exam Vital Signs: Vital Signs: Last Vital Signs Temp 98 F 03/01/24 07:01 Pulse 57 03/01/24 07:01 Resp 12 03/01/24 07:01 BP 176/88 H 03/01/24 07:01 Pulse Ox 97 03/01/24 07:01 O2 Del Method Room Air 03/01/24 07:01 BMI result Body Mass Index 23.8 Const: Other: Constitutional : Awake, interactive, not in distress Mouth: Right molar fell, drainage noted, open space under Teeth 27/28 with drainage coming out along with bone. losing many teeth Neck : Normal inspection, Supple Cardiovascular : RRR, no JVP, no lower extremity edema Respiratory : good bilateral air entry, no crackles, wheezes or rhonchi Gastrointestinal: soft, lax, Normal bowel sounds, Non tender Skin : Warm, Dry Neurological : Alert & oriented x3, No focal deficit Objective Data Active Medications Acetaminophen (Acetaminophen 325 Mg Tablet) 650 mg PO Q6H PRN PRN Reason: Pain, Mild (Pain Scale 1-3) Last Admin: 03/01/24 07:33 Dose: 650 mg Documented By: VERO Acetaminophen/Butalbital/Caffeine (Butalb/Acetamin/Caff 50/325/40 Tablet) 1 tab PO Q4H PRN PRN Reason: Headache Amlodipine Besylate (Amlodipine Besylate 5 Mg Tablet) 5 mg PO DAILY [facility]; Protocol Last Admin: 03/01/24 07:33 Dose: 5 mg Documented By: VERO Aspirin (Aspirin 81 Mg Tab.Chew) 81 mg PO DAILY [facility] Last Admin: 02/27/24 11:12 Dose: 81 mg Documented By: KATIE Calcium Carbonate (Calcium Carbonate 500 Mg Tablet) 500 mg PO TID [facility] Last Admin: 03/01/24 07:34 Dose: 500 mg Documented By: VERO Chlorhexidine Gluconate (Chlorhexidine Gluc Oral Rinse 15 Ml Mouthwash) 15 ml BUCCAL TID [facility] Last Admin: 03/01/24 07:34 Dose: 15 ml Documented By: VERO Fluoxetine HCl (Fluoxetine Hcl 20 Mg Capsule) 40 mg PO DAILY [facility] Last Admin: 03/01/24 07:34 Dose: 40 mg Documented By: VERO Heparin Sodium (Porcine) (Heparin Sodium,Porcine 5,000 Unit/Ml Vial) 5,000 unit SUBCUT Q12H [facility] Last Admin: 02/27/24 06:00 Dose: Not Given Documented By: ERIC Non-Admin Reason: Patient Asleep Meropenem 1 gm/ Sodium (Chloride) 100 mls @ 200 mls/hr IV Q8H [facility] Last Infusion: 03/01/24 11:38 Dose: Infused Documented By: VERO Levothyroxine Sodium (Levothyroxine Sodium 75 Mcg Tablet) 75 mcg PO DAILY@0600 [facility] Last Admin: 03/01/24 06:02 Dose: 75 mcg Documented By: CARMENZA Loperamide HCl (Loperamide Hcl 2 Mg Capsule) 2 mg PO Q4H PRN PRN Reason: Loose Stool Magnesium Oxide (Magnesium Oxide 400 Mg Tablet) 800 mg PO TID [facility] Last Admin: 03/01/24 07:34 Dose: 800 mg Documented By: VERO Mirtazapine (Mirtazapine 30 Mg Tablet) 30 mg PO BEDTIME [facility] Last Admin: 02/29/24 19:34 Dose: 30 mg Documented By: CARMENZA Oxycodone HCl (Oxycodone Hcl Immed Release 5 Mg Tablet) 5 mg PO Q4H PRN PRN Reason: Pain, Severe (Pain Scale 7-10) Last Admin: 03/01/24 03:49 Dose: 5 mg Documented By: CARMENZA Pantoprazole Sodium (Pantoprazole Sodium 40 Mg/10 Ml Vial) 40 mg IVPUSH DAILY@0630 [facility] Last Admin: 03/01/24 06:01 Dose: 40 mg Documented By: CARMNEZA Potassium Chloride (Potassium Chloride Packet 20 Meq Packet) 20 meq PO DAILY [facility] Last Admin: 03/01/24 07:35 Dose: 20 meq Documented By: VERO Sodium Bicarbonate (Sodium Bicarbonate 650 Mg Tablet) 650 mg PO BID [facility] Last Admin: 03/01/24 07:33 Dose: 650 mg Documented By: VERO Sodium Chloride (0.9 % Sodium Chloride Flush 3 Ml Syringe) 3 ml IVFLUSH QSHIFT [facility] Last Admin: 03/01/24 07:35 Dose: Not Given Documented By: VERO Non-Admin Reason: Duplicate Order Sodium Chloride (0.9 % Sodium Chloride Flush 10 Ml Syringe) 5 ml IVFLUSH TID [facility] Last Admin: 03/01/24 07:35 Dose: 5 ml Documented By: VERO Zolpidem Tartrate (Zolpidem Tartrate 5 Mg Tablet) 5 mg PO BEDTIME PRN PRN Reason: Insomnia Labs 03/01/24 06:03 03/01/24 06:03 Labs: Laboratory Results - last 24 hr 02/29/24 02/29/24 02/29/24 05:44 08:10 11:23 MCV MCH MCHC RDW Plt Count MPV Absolute Nucleated RBC Nucleated RBC % (auto) Hold Purple Top PT INR Estim Creat Clear Calc Estimated GFR Ferritin 271 H Stool Occult Blood POSITIVE Random Vancomycin Blood Type O Positive Antibody Screen NEGATIVE Crossmatch See Detail 02/29/24 03/01/24 03/01/24 13:52 06:03 09:08 MCV 85.9 MCH 27.9 MCHC 32.5 RDW 14.6 Plt Count 272 MPV 10.8 Absolute Nucleated RBC 0.000 Nucleated RBC % (auto) 0.0 Hold Purple Top SEE NOTE PT 13.1 INR 1.1 Estim Creat Clear Calc 50.7 Estimated GFR > 60 Ferritin Stool Occult Blood Random Vancomycin 13.4 L Blood Type Antibody Screen Crossmatch Microbiology Microbiology Results: Microbiology 02/26/24 18:45 Gram Stain - Final Mouth Routine Culture - Final Assessment and Plan (1) Osteomyelitis, jaw acute: Status: Acute (2) Multiple myeloma: Status: Acute (3) Acute on chronic anemia: Status: Acute Plan 78F PMH multiple myeloma, chronic diarrhea, hypothyroid, gerd, mood disorder, presented with several days worsening of her chronic diarrhea Right jaw acute osteomyelitis Face CT showing suggestive changes A teeth fell off her mouth along with jaw bone, sent for pathology negative cultures DC Unasyn and Vanco Start Meropenem ID input appreciated, likely OM , 6 weeks Ertapenem PICC line placed Oncology following follow Vanco trough acute on chronic diarrhea complicated by acute kidney injury and severe hypomagnesemia Cr improving to 0.8 monitor magnesium and BMP Imodium acute on chronic anemia Hb improved to 9.1 after transfused 1 unit of blood Iron stores look ok +Ve occult Hold ASA and Heparin GI will hold on any procedure now but ask for Cdiff and stool Panel Metabolic acidosis, acute resolved NaHCO3 supplement mood disorder prozac GERD Hold PPI for hypomagnesemia Hypothyroid Synthroid Multiple myeloma Oxycodone, Revlimid DVT prophylaxis SCDs Full code Patient with significant deep mouth infection with Jaw Osteomyelitis requiring IV antibiotics and pending ID plan for OP Abx and outpatient plan Quality Stroke Does the patient have a stroke diagnosis?: No VTE Prior VTE?: No VTE Risk Level:: Medical - moderate - high VTE Device Contraindication: Treatment Not Indicated VTE Drug Contraindication: N/A - Med Ordered
[2024-03-01 15:09] VITALS: BP 146/69; PULSE 58; RESP 15; TEMP 36.6; O2SAT 98
[2024-03-01] MEDS: 0.9 % Sodium Chloride Flush 3 ML SYRINGE IVFLUSH ×2 (15:58→20:38)
[2024-03-01 19:23] VITALS: BP 146/76; PULSE 61; RESP 16; TEMP 36.4; O2SAT 97
[2024-03-01] MEDS: Mirtazapine 30 MG TABLET PO (20:37)
[2024-03-01] MEDS: Zolpidem Tartrate 5 MG TABLET PO (23:21)
[2024-03-02 03:54] VITALS: BP 168/64; PULSE 65; RESP 18; TEMP 36.6; O2SAT 96
[2024-03-02 06:24] LABS: Estimated Glomerular Filt Rate > 60
[2024-03-02 07:05] VITALS: BP 159/71; PULSE 60; RESP 17; TEMP 36.6; O2SAT 96
[2024-03-02] MEDS: Chlorhexidine Gluc Oral Rinse 15 ML MOUTHWASH BUCCAL ×2 (08:21→14:04)
[2024-03-02] MEDS: Potassium Chloride Packet 20 MEQ PACKET PO (08:21)
[2024-03-02] MEDS: FLUoxetine HCl 20 MG CAPSULE 40 MG PO (08:22)
[2024-03-02] MEDS: Sodium Bicarbonate 650 MG TABLET PO (08:22)
[2024-03-02] MEDS: amLODIPine Besylate 5 MG TABLET PO (08:22)
[2024-03-02] MEDS: Magnesium Oxide 400 MG TABLET 800 MG PO ×2 (08:22→14:04)
[2024-03-02] MEDS: 0.9 % Sodium Chloride Flush 3 ML SYRINGE IVFLUSH ×2 (08:23→14:04)
[2024-03-02] MEDS: 0.9 % Sodium Chloride Flush 10 ML SYRINGE 5 ML IVFLUSH ×2 (08:23→14:04)
[2024-03-02] MEDS: Acetaminophen 325 MG TABLET 650 MG PO (10:38)
[2024-03-02 10:40] LABS: CDiff Gene PCR NEGATIVE (Negative)
--- NOTE | 2024-03-02 12:11 | MHC.CM.PN ---
IMM 03/02/24 Patient is discharged to [facility] via BLS. Transport is booked for 1:30pm [facility]. Patient will receive IV ABX at the facility. [facility] has been notified of the dc today and bed [facility], [facility].
[2024-03-02] MEDS: Ertapenem Sodium 1 GM in 0.9 % Sodium Chloride 50 ML IV (12:36)
--- NOTE | 2024-03-02 12:41 | P.DS_ITS ---
DS: Providers Provider Date of Service: 03/02/24 Date of admission: 02/25/24 15:09 Primary care physician: Erika Delgado MD Consults: 02/27/24 07:40 Consult to Hematology / Oncology Routine Consulting Provider: Alia Cutler Reason for consultation: Osteonecrosis vs Osteomyelitis of the Jaw, for eval and rec. Consult to Infectious Diseases Routine Consulting Provider: [facility] [place] [facility] Reason for consultation: Osteonecrosis vs Osteomyelitis of the Jaw, for eval and rec. 02/29/24 13:52 Consult to Gastroenterology Routine Consulting Provider: Deborah Borrero Reason for consultation: Acute on chronic anemia w +ve occult DS: Diagnosis Discharge Diagnosis (1) Multiple myeloma: Status: Acute (2) Chronic diarrhea: Status: Acute (3) Osteomyelitis, jaw acute: Status: Acute (4) Acute on chronic anemia: Status: Acute (5) Heme positive stool: Status: Acute (6) Infection of tooth socket: Status: Acute (7) Hypomagnesemia: Status: Acute (8) Acute kidney injury: Status: Acute DS: Summary Hospital Course Hospital Course: Admission note 78F PMH multiple myeloma, chronic diarrhea, hypothyroid, gerd, mood disorder, presented with several days worsening of her chronic diarrhea, unable to rehydrate or have significant po intake due to ongoing dental pain. she has been taking nsaids for her pain and has not taken imodium recently. diarrhea is watery, non bloody, some crampy pain. continues to feel weak so came to ED. in ED labs signifcant for MARII creatinine 2.27 and hypomagnesemia 1.1. stool pcr pending. Hospital course # Right jaw acute osteomyelitis Noticed Face CT showing suggestive changes. A teeth fell off her mouth along with jaw bone, sent for pathology. negative cultures. DC Unasyn and Vancomycin. started on Meropenem. ID input appreciated, treat with 6 weeks of Ertapenem. PICC line placed. Oncology evaluated the patient during hospital stay and agrees with OM diagnosis rather that osteonecrosis at this stage. # acute on chronic diarrhea complicated by acute kidney injury and severe hypomagnesemia Kidney injury resolved as creatinine improved to 0.8. Negative C.Diff. Her diarrhea improved. Use PRN Imodium. GI evaluated the patient and recommended no intervention at this stage. # acute on chronic anemia Noticed to drop her Hb to 7.2. transfused 1 unit of blood with Hb improved to 9.1. Iron stores looks ok. +Ve occult stool that was evaluated by GI as ASA and Heparin were held. GI will hold on any procedure as the drop likely related to her MM diagnosis rather than bleeding. To continue Omeprazole on discharge. Discharge Plan Continue Antibiotics for 36 more days Magnesium supplement daily Start Amlodipine for blood pressure control Time Attestation Discharge Coordination Time (in mins): 44 Quality: Safe Use of Opioids Does Pt have an Active Cancer Diagnosis on the Problem List?: No Quality: Stroke Does the patient have a stroke diagnosis?: No Physical Exam Vital Signs: Vital Signs: Last Vital Signs Temp 97.8 F 03/02/24 07:05 Pulse 60 03/02/24 07:05 Resp 17 03/02/24 07:05 BP 159/71 H 03/02/24 07:05 Pulse Ox 96 03/02/24 07:05 O2 Del Method Room Air 03/02/24 07:05 BMI result Body Mass Index 23.8 Const: Other: Constitutional : Awake, interactive, not in distress Mouth: Right molar fell, drainage noted, open space under Teeth 27/28 with drainage coming out along with bone. losing many teeth Neck : Normal inspection, Supple Cardiovascular : RRR, no JVP, no lower extremity edema Respiratory : good bilateral air entry, no crackles, wheezes or rhonchi Gastrointestinal: soft, lax, Normal bowel sounds, Non tender Skin : Warm, Dry Neurological : Alert & oriented x3, No focal deficit DS: Data Data Completed and Pending Labs on day of discharge: Laboratory Results - last 24 hr 03/02/24 03/02/24 05:21 08:47 Hold Purple Top SEE NOTE Creatinine 0.76 Estim Creat Clear Calc 54.0 Estimated GFR > 60 C. difficile Tox B Gene NEGATIVE Imaging CT scan - abdomen: Radiologist's impression: ITS Impressions Chest X-Ray 02/25/24 17:28 IMPRESSION: 1. Increased interstitial markings, nonspecific could be seen in the context of pulmonary edema, small airways disease or atypical/viral infection. No consolidation or pleural effusion. 2. Chronic expansile bony lesion in the superior right scapula, stable dating back to 2020. 3. Chronic left-sided rib fractures. Face CT 02/26/24 16:10 IMPRESSION: - There is significantly worsening erosion and fragmentation involving the mandibular symphysis and anterior mandibular bodies bilaterally with adjacent soft tissue swelling. There is a pathologic fracture coursing through the partially eroded anterior right mandible towards the midline mandibular symphysis. Findings could be the sequela of extensive osteomyelitis and/or osteonecrosis in the appropriate clinical context. Accounting for probable infectious or inflammatory soft tissue swelling, no definite discrete mass lesion is identified though assessment is limited. Cellulitic changes extend into the submental region and there is right submental skin thickening that can be clinically correlated. - There is lucency surrounding the roots of the residual mandibular premolars bilaterally, partially uncovered into adjacent eroded bone. 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 Discharge Plan Discharge Anticipated Discharge Date/Time: 03/02/24 12:19 Patient Disposition: [facility] Discharge Diagnosis: Osteomyelitis of Jaw Referrals: [facility] [Outside] - 1 Week Erika Fields MD [Primary Care Provider] - 1 Week Discharge Medications: New amlodipine 5 mg Tablet 5 mg PO DAILY Qty: 90 0RF Protocol: Hold for SBP< HOLD for SBP < : 90 magnesium oxide 400 mg (241.3 mg magnesium) Tablet 800 mg PO DAILY Qty: 180 0RF chlorhexidine gluconate 0.12 % Mouthwash 15 ml buccal TID Qty: 1500 0RF ertapenem 1 gram recon soln 1 g IV Q24H Continued lenalidomide [Revlimid] 10 mg Capsule 10 mg PO DAILY Qty: 14 0RF Rx Instructions: [id number]. swallow whole with glass of water; do not open, crush, chew , break, or dissolve potassium chloride 20 mEq Packet 20 meq PO DAILY Qty: 90 2RF levothyroxine 75 mcg tablet 75 mcg PO DAILY lenalidomide [Revlimid] 10 mg Capsule 10 mg PO DAILY Qty: 14 0RF Rx Instructions: swallow whole with glass of water; do not open, crush, chew , break, or dissolve. [id number] mirtazapine 30 mg tablet 30 mg PO BEDTIME aspirin 81 mg tablet,chewable 81 mg PO DAILY omeprazole 20 mg capsule,delayed release(DR/EC) 1 cap PO DAILY fluoxetine 40 mg capsule 1 cap PO DAILY calcium carbonate [Oyster Shell Calcium 500] 500 mg calcium (1,250 mg) Tablet 500 mg PO TID 30 Days Qty: 90 0RF loperamide 2 mg Tablet 2 mg PO Q4H PRN (Reason: Loose Stool) Rx Instructions: administer after each loose stool until symptoms controlled; do not exceed 8 mg per 24 hrs oxycodone 10 mg tablet 1 tab PO Q12H Qty: 20 0RF Discharge Orders: Discharge Order (Routine); Ordered 03/02/24 Ordered By: Wagner Lee Diet: Advance to usual diet Activity on Discharge: As tolerated Stand Alone Forms: Patient Portal Discharge page Print Language: German Care Plan Goals: Read below Health Concerns: Read below Plan of Treatment: Read below Assessment: Continue Antibiotics for 36 more days Magnesium supplement daily Start Amlodipine for blood pressure control
[2024-03-02 13:03] LABS: Adenovirus F 40/41 Not Detected (Not Detect.); Astrovirus Not Detected (Not Detect.); Campylobacter Not Detected (Not Detect.); Cryptosporidium Not Detected (Not Detect.); Cyclospora cayetanensis Not Detected (Not Detect.); E. coli EAEC Not Detected (Not Detect.); E. coli EPEC Not Detected (Not Detect.); E. coli ETEC Not Detected (Not Detect.); E. coli STEC Not Detected (Not Detect.); Entamoeba histolytica Not Detected (Not Detect.); Giardia lamblia Not Detected (Not Detect.); Norovirus GI/GII Not Detected (Not Detect.); Plesiomonas shigelloides Not Detected (Not Detect.); Rotavirus A Not Detected (Not Detect.); Salmonella Not Detected (Not Detect.); Sapovirus Not Detected (Not Detect.); Shigella sp./EIEC Not Detected (Not Detect.); Vibrio Not Detected (Not Detect.); Vibrio Cholerae Not Detected (Not Detect.); Yersinia enterocolitica Not Detected (Not Detect.)
[2024-03-02] MEDS: oxyCODONE HCl Immed Release 5 MG TABLET PO (14:49)
[2024-03-02 15:59] VITALS: BP 179/89; PULSE 58; RESP 20; TEMP 36.5; O2SAT 98
== END 2024-03-02 17:26 | disposition skilled nursing facility (03) | DRG 158 ==
LOC: HO.ED 14:02 → HO.EDOVER 15:23 → HO.IMC 19:27 → HO.S3 02-28 16:00
PROVIDERS: Internal Medicine; Physician Assistant; Admitting Provider Internal Medicine; Emergency Provider Emergency Medicine; PCP Internal Medicine; Visit Provider Student in an Organized Health Care Education/Training Program
DX: K04.7 Periapical abscess without sinus (principal); C90.00 Multiple myeloma not having achieved remission; N17.9 Acute kidney failure, unspecified; E87.21 Acute metabolic acidosis; K52.9 Noninfective gastroenteritis and colitis, unspecified; D63.0 Anemia in neoplastic disease; M27.2 Inflammatory conditions of jaws; E03.9 Hypothyroidism, unspecified; F17.210 Nicotine dependence, cigarettes, uncomplicated; Z71.6 Tobacco abuse counseling; E83.42 Hypomagnesemia; Z79.82 Long term (current) use of aspirin; Z79.890 Hormone replacement therapy; Z79.899 Other long term (current) drug therapy
CPT/HCPCS: 36415; 36573; 70486; 71045; 80048; 80076; 80202; 81003; 82272; 82565; 82728; 83540; 83605; 83690; 83735; 84484; 85025; 85027; 85610; 86140; 86850; 86900; 86901; 86923; 87040; 87070; 87205; 87493; 87507; 93005; 99285; C9113; J0295; J1335; J1630; J1644; J2185; J3370; J3371; J3475; J7120; P9016

== ENCOUNTER → 2024-02-25 13:52 | Outpatient (BNV) | payer MEDICARE, MEDICAID, SELFPAY | PROVIDERS: Admitting Provider Internal Medicine; Emergency Provider Emergency Medicine; PCP Internal Medicine; Visit Provider Internal Medicine Cardiovascular Disease | DX: R00.1 Bradycardia, unspecified (principal); R53.1 Weakness | CPT/HCPCS: 93010 ==

== ENCOUNTER → 2024-02-25 15:09 | Outpatient (BNV) | payer MEDICARE, MEDICAID, SELFPAY | PROVIDERS: Admitting Provider Internal Medicine; Emergency Provider Emergency Medicine; PCP Internal Medicine; Visit Provider Internal Medicine | DX: C90.00 Multiple myeloma not having achieved remission (principal); M27.2 Inflammatory conditions of jaws; D64.9 Anemia, unspecified; G93.40 Encephalopathy, unspecified; K52.9 Noninfective gastroenteritis and colitis, unspecified; D36.9 Benign neoplasm, unspecified site | CPT/HCPCS: 99222 ==

== ENCOUNTER → 2024-02-25 15:09 | Outpatient (BNV) | payer MEDICARE, MEDICAID, SELFPAY | PROVIDERS: Admitting Provider Internal Medicine; Emergency Provider Emergency Medicine; PCP Internal Medicine; Visit Provider Internal Medicine | DX: C90.00 Multiple myeloma not having achieved remission (principal); M27.3 Alveolitis of jaws | CPT/HCPCS: 99222 ==

== ENCOUNTER → 2024-02-25 15:09 | Outpatient (BNV) | payer MEDICARE, MEDICAID, SELFPAY | PROVIDERS: Admitting Provider Internal Medicine; Emergency Provider Emergency Medicine; PCP Internal Medicine; Visit Provider Internal Medicine Medical Oncology | DX: C90.00 Multiple myeloma not having achieved remission (principal) | CPT/HCPCS: 99222 ==

== ENCOUNTER → 2024-02-25 15:09 | Outpatient (BNV) | payer MEDICARE, MEDICAID, SELFPAY | PROVIDERS: Admitting Provider Internal Medicine; Emergency Provider Emergency Medicine; PCP Internal Medicine; Visit Provider Internal Medicine | DX: C90.00 Multiple myeloma not having achieved remission (principal); K52.9 Noninfective gastroenteritis and colitis, unspecified; M27.2 Inflammatory conditions of jaws; D64.9 Anemia, unspecified; R19.5 Other fecal abnormalities; M27.3 Alveolitis of jaws; E83.42 Hypomagnesemia; N17.9 Acute kidney failure, unspecified | CPT/HCPCS: 99222; 99232; 99233; 99239 ==

== ENCOUNTER 2024-06-01 13:58 | Emergency (ER) | payer MEDICARE, SELFPAY ==
[2024-06-01 14:08] VITALS: BP 132/64; BP 136/57; PULSE 54; PULSE 60; RESP 14; TEMP 36.8; O2SAT 97; BMI 24.8
[2024-06-01 14:19] VITALS: BP 136/57; PULSE 52; RESP 14; TEMP 36.8
--- NOTE | 2024-06-01 14:37 | ECG_ITS ---
Test Reason : ELEVATED K Blood Pressure : / mmHG Vent. Rate : 050 BPM Atrial Rate : 050 BPM P-R Int : 134 ms QRS Dur : 076 ms QT Int : 494 ms P-R-T Axes : 029 018 002 degrees QTc Int : [address] & T changes- consider anterior ischemia Abnormal ECG When compared with ECG of 25-FEB-2024 16:02, Inferior leads T wave inversion not present anymore Referred By: Isidro Mckeon Electronically Signed By:Iraj Hernandez
--- NOTE | 2024-06-01 14:39 | ED.GENADULT ---
HPI - General Adult General Chief complaint: Recheck/Abnormal Lab/Rx Stated complaint: abnormal labs Time Seen by Provider: 06/01/24 14:35 Source: patient Mode of arrival: EMS History of Present Illness HPI narrative: This is 78 years old female sent by the fpc for evaluation of elevated potassium. According to the fpc report potassium was 6.3. Patient otherwise is asymptomatic. Patient has history of hypothyroidism, COPD, renal insufficiency, she carry a diagnosis of dementia. Onset (ago): day(s) (1) Radiation: non-radiation Severity: mild Relieving factors: none Exacerbating factors: none Associated symptoms: denies other symptoms Related Data Home Medications ?Medication ?Instructions ?Recorded ?Confirmed levothyroxine 75 mcg tablet 75 mcg PO DAILY 10/27/20 02/25/24 aspirin 81 mg chewable tablet 81 mg PO DAILY 12/16/20 02/25/24 mirtazapine 30 mg tablet 30 mg PO BEDTIME 12/16/20 02/25/24 omeprazole 20 mg capsule,delayed 1 cap PO DAILY 05/11/22 02/25/24 release fluoxetine 40 mg capsule 1 cap PO DAILY 05/12/22 02/25/24 loperamide 2 mg tablet 2 mg PO Q4H PRN Loose Stool 02/25/24 02/25/24 Previous Rx's ?Medication ?Instructions ?Recorded calcium carbonate (Oyster Shell 500 mg PO TID 30 days #90 tabs 05/13/22 Calcium 500) lenalidomide 10 mg capsule 10 mg PO DAILY #14 caps 11/21/23 (Revlimid) potassium chloride 20 mEq oral 20 meq PO DAILY #90 ea 01/06/24 packet lenalidomide 10 mg capsule 10 mg PO DAILY #14 caps 02/28/24 (Revlimid) amlodipine 5 mg tablet 5 mg PO DAILY #90 tabs 03/02/24 chlorhexidine gluconate 0.12 % 15 ml buccal TID #1,500 mL 03/02/24 mouthwash ertapenem 1 gram solution for 1 g IV Q24H 03/02/24 injection magnesium oxide 400 mg (241.3 mg 800 mg (2 x 400 mg (241.3 mg 03/02/24 magnesium) tablet magnesium)) PO DAILY #180 tabs oxycodone 10 mg tablet 1 tab PO Q12H #20 tabs 03/02/24 lenalidomide 10 mg capsule 10 mg PO DAILY #14 caps 04/03/24 (Revlimid) lenalidomide 10 mg capsule 10 mg PO DAILY #14 caps 05/04/24 (Revlimid) Allergies Allergy/AdvReac Type Severity Reaction Status Date / Time No Known Allergies Allergy Verified 06/01/24 14:12 [No Known Allergies*] Review of Systems Eyes: Eyes: Reports no additional eye complaints Respiratory: Respiratory: Reports no additional respiratory complaints PMFSH Past Medical History Attestation statement: The following information was validated with the patient. Source: unable to obtain Medical History Chronic diarrhea Multiple myeloma Tubulovillous adenoma Depression H/O gastroesophageal reflux (GERD) Hx of multiple myeloma Hypothyroidism Surgical History H/O tooth extraction History of bone marrow biopsy History of cholecystectomy Family History Family History Daughter Diabetes Thyroid cancer Social History Social History Household Members: Family Household Members Other:: adult son Housing: Apartment Are you a primary urgent care to a significant other at home: No Do you presently have visiting nurse or other home services: Yes Alcohol intake: never Comment: 1:[address] until 23:00 due to staffing constraints Patient Tobacco Use Status: Current everyday Tobacco user Tobacco use type: Cigarette Years Smoked: 20 Smoked in Last 30 Days: No e-Cigarette/Vaping Use: Never Used Second Hand Smoke Exposure: No Use of substances other than those prescribed or required for medical reasons: No Substance Use Type: Marijuana Advance Directives: Yes Advance Directives on File: Yes Advance Directives Date on File: 03/15/21 Do you have a plan to hurt others: No Plan service: No Current occupational status: unemployed Physical Exam ED Vital Signs: Vital Signs - 24 hr 06/01/24 14:08 06/01/24 14:19 06/01/24 15:50 Temperature 98.2 F 98.2 F Pulse Rate 60 52 48 L Respiratory Rate 14 14 18 Blood Pressure 136/57 L 136/57 L Oxygen Delivery Method Room Air Room Air BMI result Body Mass Index 24.8 Const General: cooperative Nutritional Appearance: average body habitus Orientation/consciousness: patient oriented x3 Limitations: no limitations HENMT Head: Yes normal to inspection General nose exam: Normal external nose present Face and sinus: Yes normal facial exam Mouth: Normal oral and palatal mucosa present Teeth and gingiva: dentition normal Neck Neck: Yes normal visual inspection and Yes full ROM Chest Chest palpation & inspection: normal inspection of the chest Resp Effort & Inspection: normal respiratory effort and able to speak in complete sentences Cardio Jugular venous distension: no JVD Rate: regular rate Rhythm: regular rhythm GI Inspection: Yes normal to inspection Palpation (GI): Soft to palpation Skin General skin exam: no rashes or lesions noted and elasticity normal Neuro General: patient oriented x3 Extrem General: Yes normal to inspection Course Reevaluation(s) Reevaluation #2: Potassium resulted 6.3, I reviewed the EKG there is no widened QRS and no peaked T-wave, well we will give Lokelma, high-dose albuterol fluids and repeat the potassium later,pt will be signed out to Dr Shi Time: 15:52 Reevaluation #3: SIgned out to Dr Shi Time: 16:03 Medications Administered Discontinued Medications Generic Name Dose Route Start Last Admin Trade Name Freq PRN Reason Stop Dose Admin Albuterol Sulfate 5 mg/ 7.5 mg 06/01/24 15:45 06/01/24 15:50 Albuterol Sulfate 2.5 mg INHALE 06/01/24 15:46 7.5 mg ONCE ONE Administration Medical Decision Making Medical Decision Making [facility] Narrative: Patient was sent here for hyperkalemia will check labs electrocardiogram Differential Diagnosis Differential Diagnoses: The differential diagnosis associated with the presentation includes Hyperkalemia /acute renal failure/arrhythmia Admission/Observation Consideration of admission/observation: Escalation of care including admission/observation considered Lab Data [facility] Lab Attestation statement: I reviewed the patient's lab results. 06/01/24 15:02 06/01/24 15:02 Labs: Lab Results 06/01/24 Range/Units 15:02 WBC 8.5 (4.8-10.8) X10*3/uL RBC 3.49 L (4.20-5.50) X10*6/uL Hgb 10.1 L (12.0-16.0) g/dl Hct 31.9 L (37.0-47.0) % MCV 91.4 (80.0-98.0) fL MCH 28.9 (27.0-33.0) pg MCHC 31.7 (31.0-35.0) g/dl RDW 14.7 (11.0-16.0) % Plt Count 259 (160-400) X10*3/uL MPV 10.9 (9.4-12.3) fL Immature Gran % (Auto) 0.4 (0.0-0.4) % Neut % (Auto) 56.5 (45-73) % Lymph % (Auto) 34.0 (20-40) % [place] % (Auto) 6.9 (2-11) % Eos % (Auto) 1.7 (0-4) % Baso % (Auto) 0.5 (0-2) % Lymph # (Auto) 2.9 (1.2-4.9) X10*3/uL [place] # (Auto) 0.6 (0.1-1.2) X10*3/uL Eos # (Auto) 0.1 (0.0-0.4) X10*3/uL Baso # (Auto) 0.0 (0.0-0.2) X10*3/uL Abs Immat Gran (auto) 0.03 (0.00-0.03) X10*3/uL Absolute Neuts (auto) 4.8 (2.0-8.3) x10*3/uL Absolute Nucleated RBC 0.000 (0.0-0.012) X10*3/uL Nucleated RBC % (auto) 0.0 (0.0-0.2) /100WBC Sodium 138 (135-145) mmol/L Potassium 6.3 H* D (3.3-5.1) mmol/L Chloride 108 (96-108) mmol/L Carbon Dioxide 24 (22-29) mmol/L Anion Gap 12 (12-20) BUN 35 H (9-16) mg/dL Creatinine 1.42 H (0.5-1.4) mg/dL Estim Creat Clear Calc 28.9 Estimated GFR 36 Random Glucose 88 (60-115) mg/dL Calcium 9.5 D (8.4-10.2) mg/dL Total Bilirubin 0.2 (0.0-1.0) mg/dL AST 13 (5-31) U/L ALT 13 (0-31) U/L Alkaline Phosphatase 112 (39-117) U/L Total Protein 7.8 (6.5-8.0) g/dL Albumin 4.0 (3.5-5.0) g/dL Independent Interpretation I performed an independent interpretation of an: EKG Interpretation: Normal sinus rhythm rate [address]-T changes QRS is narrow T-waves are not peaked Independent Historian Clinical information obtained from an independent historian. History obtained from or confirmed by: Other (Nursing record) Chronic Conditions Patient?s care impacted by: Cancer multiple myeoma Critical Care Time Critical Care Time Critical Care Time: Yes Total Critical Care Time: 60 Attestation: Hyperkalemia case 6.3 IV glucagon/high-dose albuterol [facility] Discharge Plan Discharge Clinical Impression: Acute hyperkalemia Patient Disposition: Still a Patient Prescriptions: No Action lenalidomide [Revlimid] 10 mg Capsule 10 mg PO DAILY Qty: 14 0RF Rx Instructions: [id number]. swallow whole with glass of water; do not open, crush, chew , break, or dissolve potassium chloride 20 mEq Packet 20 meq PO DAILY Qty: 90 2RF levothyroxine 75 mcg tablet 75 mcg PO DAILY lenalidomide [Revlimid] 10 mg Capsule 10 mg PO DAILY Qty: 14 0RF Rx Instructions: swallow whole with glass of water; do not open, crush, chew , break, or dissolve. [id number] lenalidomide [Revlimid] 10 mg Capsule 10 mg PO DAILY Qty: 14 0RF Rx Instructions: swallow whole with glass of water; do not open, crush, chew , break, or dissolve. [id number] lenalidomide [Revlimid] 10 mg Capsule 10 mg PO DAILY Qty: 14 0RF Rx Instructions: swallow whole with glass of water; do not open, crush, chew , break, or dissolve. [id number] mirtazapine 30 mg tablet 30 mg PO BEDTIME aspirin 81 mg tablet,chewable 81 mg PO DAILY omeprazole 20 mg capsule,delayed release(DR/EC) 1 cap PO DAILY fluoxetine 40 mg capsule 1 cap PO DAILY calcium carbonate [Oyster Shell Calcium 500] 500 mg calcium (1,250 mg) Tablet 500 mg PO TID 30 Days Qty: 90 0RF loperamide 2 mg Tablet 2 mg PO Q4H PRN (Reason: Loose Stool) Rx Instructions: administer after each loose stool until symptoms controlled; do not exceed 8 mg per 24 hrs amlodipine 5 mg Tablet 5 mg PO DAILY Qty: 90 0RF Protocol: Hold for SBP< HOLD for SBP < : 90 magnesium oxide 400 mg (241.3 mg magnesium) Tablet 800 mg PO DAILY Qty: 180 0RF chlorhexidine gluconate 0.12 % Mouthwash 15 ml buccal TID Qty: 1500 0RF ertapenem 1 gram recon soln 1 g IV Q24H oxycodone 10 mg tablet 1 tab PO Q12H Qty: 20 0RF Print Language: Estonian
[2024-06-01 15:08] LABS: MANUAL DIFF FLAG NO
[2024-06-01 15:15] LABS: Basophils Percent Auto 0.5 % (0-2); Eosinophils Absolute Auto 0.1 X10*3/uL (0.0-0.4); Eosinophils Percent Auto 1.7 % (0-4); Hematocrit 31.9 % (37.0-47.0); Hemoglobin 10.1 g/dl (12.0-16.0); Imm Gran Abs Auto 0.03 X10*3/uL (0.00-0.03); Imm Gran Pct Auto 0.4 % (0.0-0.4); Lymphocytes Absolute Auto 2.9 X10*3/uL (1.2-4.9); Mean Corpuscular HGB Conc 31.7 g/dl (31.0-35.0); Mean Corpuscular Hemoglobin 28.9 pg (27.0-33.0); Mean Corpuscular Volume 91.4 fL (80.0-98.0); Mean Platelet Volume 10.9 fL (9.4-12.3); Monocytes Absolute Auto 0.6 X10*3/uL (0.1-1.2); Monocytes Percent Auto 6.9 % (2-11); Neutrophils Absolute Auto 4.8 x10*3/uL (2.0-8.3); Neutrophils Percent Auto 56.5 % (45-73); Platelet Count 259 X10*3/uL (160-400); Red Blood Count 3.49 X10*6/uL (4.20-5.50); Red Cell Distribution Width 14.7 % (11.0-16.0); White Blood Count 8.5 X10*3/uL (4.8-10.8)
[2024-06-01 15:44] LABS: Alanine Aminotransferase 13 U/L (0-31); Alkaline Phosphatase 112 U/L (39-117); Anion Gap 12 (12-20); Aspartate Amino Transferase 13 U/L (5-31); Bilirubin Total 0.2 mg/dL (0.0-1.0); Blood Urea Nitrogen 35 mg/dL (9-16); Calcium 9.5 mg/dL (8.4-10.2); Carbon Dioxide 24 mmol/L (22-29); Chloride 108 mmol/L (96-108); Creatinine Clr Calc Pharmacy 28.9; Estimated Glomerular Filt Rate 36; Glucose Random 88 mg/dL (60-115); Potassium 6.3 mmol/L (3.3-5.1); Sodium 138 mmol/L (135-145); Total Protein 7.8 g/dL (6.5-8.0)
[2024-06-01 15:50] VITALS: PULSE 48; RESP 18; O2SAT 95
[2024-06-01] MEDS: Albuterol Sulfate 5 MG, Albuterol Sulfate (0.083%) 2.5 MG 7.5 MG INHALE (15:50)
[2024-06-01 16:00] VITALS: BP 140/59; PULSE 51; RESP 12; O2SAT 95
[2024-06-01] MEDS: 0.9 % Sodium Chloride 1,000 ML 999 ML IVCONT (16:11)
[2024-06-01] MEDS: Calcium Gluconate/NaCl,Iso-Osm 1 GM/50 ML PLAST..BAG IV (16:20)
[2024-06-01] MEDS: Sodium Zirconium Cyclosilicate 10 GM POWD.PACK PO (16:21)
[2024-06-01 18:09] VITALS: BP 140/60; PULSE 54; RESP 14; TEMP 36.6; O2SAT 100
[2024-06-01 18:13] LABS: Anion Gap 13 (12-20); Blood Urea Nitrogen 32 mg/dL (9-16); Calcium 9.6 mg/dL (8.4-10.2); Carbon Dioxide 23 mmol/L (22-29); Chloride 109 mmol/L (96-108); Creatinine Clr Calc Pharmacy 32.6; Estimated Glomerular Filt Rate 41; Glucose Random 106 mg/dL (60-115); Potassium 4.9 mmol/L (3.3-5.1); Sodium 140 mmol/L (135-145)
[2024-06-01 18:47] VITALS: BP 140/60; PULSE 54; RESP 14; TEMP 36.6; O2SAT 100
== END 2024-06-01 19:38 | disposition home or self-care (01) ==
PROVIDERS: Emergency Medicine; Emergency Provider Emergency Medicine
DX: E87.5 Hyperkalemia (principal); R79.89 Other specified abnormal findings of blood chemistry; F03.90 Unspecified dementia, unspecified severity, without behavioral disturbance, psychotic disturbance, mood disturbance, and anxiety; R94.31 Abnormal electrocardiogram [ECG] [EKG]; J44.9 Chronic obstructive pulmonary disease, unspecified; Z79.899 Other long term (current) drug therapy
CPT/HCPCS: 36415; 80048; 80053; 85025; 93005; 94640; 96365; 99284; 99285; J0613

== ENCOUNTER → 2024-06-01 14:37 | Outpatient (BNV) | payer MEDICARE, SELFPAY | PROVIDERS: Emergency Provider Emergency Medicine; Visit Provider Internal Medicine Cardiovascular Disease | DX: R00.1 Bradycardia, unspecified (principal); R94.31 Abnormal electrocardiogram [ECG] [EKG] | CPT/HCPCS: 93010 ==

== ENCOUNTER 2024-07-09 12:10 | Outpatient (REF) | payer MEDICARE, SELFPAY ==
[2024-07-09 13:02] LABS: MANUAL DIFF FLAG NO
[2024-07-09 13:12] LABS: Basophils Absolute Auto 0.1 X10*3/uL (0.0-0.2); Basophils Percent Auto 0.6 % (0-2); Eosinophils Absolute Auto 0.2 X10*3/uL (0.0-0.4); Eosinophils Percent Auto 2.5 % (0-4); Hematocrit 33.9 % (37.0-47.0); Imm Gran Abs Auto 0.06 X10*3/uL (0.00-0.03); Imm Gran Pct Auto 0.7 % (0.0-0.4); Lymphocytes Absolute Auto 2.2 X10*3/uL (1.2-4.9); Lymphocytes Percent Auto 26.4 % (20-40); Mean Corpuscular HGB Conc 32.4 g/dl (31.0-35.0); Mean Corpuscular Hemoglobin 28.7 pg (27.0-33.0); Mean Corpuscular Volume 88.5 fL (80.0-98.0); Mean Platelet Volume 10.8 fL (9.4-12.3); Monocytes Absolute Auto 0.7 X10*3/uL (0.1-1.2); Monocytes Percent Auto 8.6 % (2-11); Neutrophils Absolute Auto 5.2 x10*3/uL (2.0-8.3); Neutrophils Percent Auto 61.2 % (45-73); Platelet Count 306 X10*3/uL (160-400); Red Blood Count 3.83 X10*6/uL (4.20-5.50); Red Cell Distribution Width 12.8 % (11.0-16.0); White Blood Count 8.5 X10*3/uL (4.8-10.8)
[2024-07-09 13:47] LABS: Anion Gap 11 (12-20); Blood Urea Nitrogen 24 mg/dL (9-16); Calcium 8.9 mg/dL (8.4-10.2); Carbon Dioxide 21 mmol/L (22-29); Chloride 112 mmol/L (96-108); Estimated Glomerular Filt Rate > 60; Glucose Random 94 mg/dL (60-115); Potassium 4.4 mmol/L (3.3-5.1); Sodium 140 mmol/L (135-145)
[2024-07-09 13:50] LABS: Vitamin D 25-OH Total 28.9 ng/mL (>30)
[2024-07-09 14:11] LABS: Folate 14.5 ng/mL (> or = 4.0)
[2024-07-09 14:15] LABS: Vitamin B12 531 pg/mL (200-900)
== END 2024-07-09 12:11 | disposition home or self-care (01) ==
LOC: HO.HHCL 12:10
PROVIDERS: Visit Provider Internal Medicine
DX: E03.9 Hypothyroidism, unspecified (principal); M27.2 Inflammatory conditions of jaws; G93.41 Metabolic encephalopathy; E83.52 Hypercalcemia
CPT/HCPCS: 36415; 80048; 82306; 82607; 82746; 84443; 85025

== ENCOUNTER 2024-08-13 12:40 | Outpatient (REF) | payer SELFPAY ==
[2024-08-13 14:19] LABS: Anion Gap 11 (12-20); Blood Urea Nitrogen 21 mg/dL (9-16); Calcium 8.9 mg/dL (8.4-10.2); Carbon Dioxide 22 mmol/L (22-29); Chloride 113 mmol/L (96-108); Estimated Glomerular Filt Rate 60; Glucose Random 94 mg/dL (60-115); Potassium 3.5 mmol/L (3.3-5.1); Sodium 142 mmol/L (135-145)
== END 2024-08-13 12:41 | disposition home or self-care (01) ==
LOC: HO.HHCL 12:40
PROVIDERS: Visit Provider Internal Medicine
DX: Z86.39 Personal history of other endocrine, nutritional and metabolic disease (principal)
CPT/HCPCS: 36415; 80048

== ENCOUNTER 2024-08-17 11:19 | Emergency (ER) | payer MEDICARE, SELFPAY ==
[2024-08-17] VITALS (7 sets, daily range): BP systolic 135–168; BP diastolic 60–75; PULSE 52–62; RESP 16–20; TEMP 36.6–36.9; O2SAT 97–99; BMI 27.5
--- NOTE | ~2024-08-17 | CT_ITS ---
EXAMINATION: CT HEAD WITHOUT CONTRAST CT CERVICAL SPINE WITHOUT CONTRAST CLINICAL INFORMATION: Fall. Pain. Injury. COMPARISON: CT head and cervical spine August 26, 2023 TECHNIQUE: Imaging was performed from the skull base to vertex without intravenous administration of contrast. In addition, helical noncontrast CT imaging was acquired through the cervical spine and source images were reviewed along with axial reconstructions and sagittal and coronal MPRs. [This CT examination was performed using dose optimization techniques as appropriate, variously including the following: *Automated exposure control *Adjustment of mA and/or kV according to patient size (this includes techniques or standardized protocols for targeted exams where dose is matched to indication/reason for exam; i.e. extremities or head) *Use of iterative reconstruction technique] DLP: 833 mGy-cm FINDINGS: HEAD: No intracranial mass, hemorrhage, or midline shift is visualized. There is generalized global volume loss. There is mild prominence of the ventricles and the sulci . There is mild hypodensity of the periventricular white matter due to chronic small vessel ischemic disease. There are vascular calcifications of the internal carotid arteries bilaterally. No extra-axial collections are identified. The paranasal sinuses and mastoid air cells are well aerated. CERVICAL SPINE: There is no evidence of acute cervical spine fracture. Vertebral bodies remain normal in height. Cervical vertebrae have normal alignment. Minimal degenerative lipping at the anterior endplates of the cervical vertebrae. Facet joints are normal. Cervical disc heights are normal. No pre- or paravertebral soft tissue abnormality is identified. Limited assessment of the lung apices is unremarkable. CT/CT cervical spine wo IV con IMPRESSION: 1. No acute intracranial pathology. 2. No CT evidence of acute cervical spine fracture or traumatic subluxation Electronically signed by: Cory Sheppard MD 08/17/2024 03:14 PM EDT
--- NOTE | 2024-08-17 11:33 | ED.GENADULT ---
HPI - General Adult General Chief complaint: Fall Stated complaint: fall head inj Time Seen by Provider: 08/17/24 16:32 Source: patient Mode of arrival: ambulatory Limitations: no limitations History of Present Illness ED Provider: Eduard Hensley PA-C HPI narrative: 78-year-old female history of multiple myeloma, osteomyelitits, anemia, H, Pylori, and multiple falls presents to the ED for fall. Patient brought today due to falling and hitting head. Daughter was upstairs and she heard patient's fall this morning at the house. Patient herself states someone was ringing the means multiple times so she stood up to walk and due to person ringing means multiple times patient was startled and fell to the ground. Patient does admits to not use walker while trying to get to the door. [id number] states patient should ambulate with a walker, but is not compliant. She states patient gait issues is chronic and primary care provider is aware and gave her walker, but patient is non-complaint with gait. Does states patient also fell yesterday due to not using walker. Patient is presently states only headache. Patient denies any chest pain, shortness of breath, abdominal pain headache, or dizziness before falling Related Data Home Medications ?Medication ?Instructions ?Recorded ?Confirmed levothyroxine 75 mcg tablet 75 mcg PO DAILY 10/27/20 08/07/24 aspirin 81 mg chewable tablet 81 mg PO DAILY 12/16/20 08/07/24 mirtazapine 30 mg tablet 30 mg PO BEDTIME 12/16/20 08/07/24 omeprazole 20 mg capsule,delayed 1 cap PO DAILY 05/11/22 08/07/24 release fluoxetine 40 mg capsule 1 cap PO DAILY 05/12/22 08/07/24 loperamide 2 mg tablet 2 mg PO Q4H PRN Loose Stool 02/25/24 08/07/24 Previous Rx's ?Medication ?Instructions ?Recorded calcium carbonate (Oyster Shell 500 mg PO TID 30 days #90 tabs 05/13/22 Calcium 500) potassium chloride 20 mEq oral 20 meq PO DAILY #90 ea 01/06/24 packet lenalidomide 10 mg capsule 10 mg PO DAILY #14 caps 02/28/24 (Revlimid) amlodipine 5 mg tablet 5 mg PO DAILY #90 tabs 03/02/24 chlorhexidine gluconate 0.12 % 15 ml buccal TID #1,500 mL 03/02/24 mouthwash ertapenem 1 gram solution for 1 g IV Q24H 03/02/24 injection magnesium oxide 400 mg (241.3 mg 800 mg (2 x 400 mg (241.3 mg 03/02/24 magnesium) tablet magnesium)) PO DAILY #180 tabs oxycodone 10 mg tablet 1 tab PO Q12H #20 tabs 03/02/24 lenalidomide 10 mg capsule 10 mg PO DAILY #14 caps 08/07/24 (Revlimid) cefuroxime axetil 250 mg tablet 250 mg PO Q12H 7 days #14 tabs 08/17/24 Allergies Allergy/AdvReac Type Severity Reaction Status Date / Time No Known Allergies Allergy Verified 08/17/24 11:36 [No Known Allergies*] Review of Systems Review of Systems: Fall Yes all other systems are reviewed and are negative PMFSH Past Medical History Medical History Chronic diarrhea Multiple myeloma Tubulovillous adenoma Depression H/O gastroesophageal reflux (GERD) Hx of multiple myeloma Hypothyroidism Surgical History H/O tooth extraction History of bone marrow biopsy History of cholecystectomy Family History Family History Daughter Diabetes Thyroid cancer Social History Social History Household Members: Family Household Members Other:: adult son Housing: Apartment Are you a primary director of patient care to a significant other at home: No Do you presently have visiting nurse or other home services: Yes Alcohol intake: never Comment: 1:[address] until 23:00 due to staffing constraints Patient Tobacco Use Status: Current everyday Tobacco user Tobacco use type: Cigarette Years Smoked: 20 Smoked in Last 30 Days: Yes e-Cigarette/Vaping Use: Never Used Second Hand Smoke Exposure: No Use of substances other than those prescribed or required for medical reasons: No Substance Use Type: Marijuana Advance Directives: Yes Advance Directives Information Provided: No Advance Directives on File: No Advance Directives Date on File: 03/15/21 Do you have a plan to hurt others: No Plan service: No Current occupational status: unemployed Physical Exam ED Vital Signs: Vital Signs - 24 hr 08/17/24 11:28 08/17/24 17:07 08/17/24 19:30 Temperature 97.9 F 97.8 F 98.4 F Pulse Rate 54 53 52 Respiratory Rate 18 16 20 Blood Pressure 135/72 168/75 H 157/60 H Pulse Oximetry 99 99 97 Oxygen Delivery Method Room Air Room Air Room Air 08/17/24 21:01 08/17/24 21:02 08/17/24 21:04 Temperature Pulse Rate 56 59 62 Respiratory Rate Blood Pressure 145/63 H 155/62 H 166/71 H Pulse Oximetry Oxygen Delivery Method BMI result Body Mass Index 27.5 Const General: cooperative, healthy appearing, comfortable, no acute distress, well developed, alert, awake and Physically active Orientation/consciousness: patient oriented x3 HENMT Head: Yes normal to inspection, Yes No palpable skull fracture present, Yes normocephalic, Yes atraumatic and No abrasion Eyes General: appearance normal, both eyes and all related structures Neck Neck: Yes normal visual inspection, Yes full ROM, Yes no lymphadenopathy, Yes no meningeal signs, Yes trachea midline, Yes supple, No anterior neck swelling and No tender Chest Chest palpation & inspection: normal inspection of the chest and normal palpation of entire chest wall Resp Effort & Inspection: normal respiratory effort and able to speak in complete sentences Auscultation: clear to auscultation bilaterally Cardio Jugular venous distension: no JVD Heart sounds: S1 normal heart sound present and S2 normal heart sound present GI Inspection: Yes normal to inspection Palpation (GI): Soft to palpation, not firm, nontender, no guarding and not rigid General: Yes no CVA tenderness Back/Spine/Pelvis Back: no CVA tenderness and No back tenderness Skin General skin exam: no rashes or lesions noted, elasticity normal and turgor normal Neuro General: patient oriented x3, tone normal, moves all extremities, Normal light touch and pain sensation, no meningeal signs, no focal motor deficits, CN's II-XI intact bilaterally and normal sensation to monofilament Extrem General: Yes normal to inspection and Yes full ROM Psych Appearance: grossly normal, well kempt and not disheveled Course Course Course Narrative: RME performed by Kati Whitley PA-C. Patient is a 78 year old assigned female at presenting to the emergency department with a head injury and feeling generally unwell. Patient states she tripped and fell and hit her head earlier today and continues to feel generally unwell. Detailed physical exam and review of systems are deferred to the manager primary care. Labs and imaging ordered. Patient placed back in the waiting room pending room availability and results. Medications Administered Discontinued Medications Generic Name Dose Route Start Last Admin Trade Name Elodia PRN Reason Stop Dose Admin Magnesium Sulfate 2 gm in 50 mls @ 25 mls/hr 08/17/24 16:48 08/17/24 19:10 Magnesium Sulfate/H2o IV 08/17/24 18:47 Infused ONCE ONE Infusion Medical Decision Making Medical Decision Making [facility] Narrative: 78-year-old female presents to ED for fall. Patient was trying to get to the door while getting up from the couch and she did not use a walker to try to walk to the door. Patient has chronic trouble walking and is required to use a walker as per PCP, but patient admits to being noncompliant with walker and due to her being startled by the means she tripped over 4 and fell. Magnesium found to be 1.0 will order magnesium IV. PTH will do EKG and cardiac evaluation to make sure of the cause of fall. EKG shows sinus bradycardia 9:41pm: EKG 2 troponins negative. Orthostatics negative. Patient moving all extremities. Whole-body evaluating negative for signs of life-threatening injuries. UA shows possible dirty catch versus UTI. Will discharge with antibiotics. Spoke with heel caser frederic Rubio who gave patient financial assistance office info to help them with the [employer] situation. Patient does not have [facility] because she needs to gather 7 [employer] account information. Patient has dementia. Daughter was informed to discussed with patient's primary care provider to [facility] health proxy so they can make decisions for her so they will be able to speak to the [employer] and begin the process of completing [employer] application. Patient not in distress. not susepcting PE, [place], Brain bleed, Neck Fracture, Pneumonia, disclocations, hemothorax, pneumothorax, or abdoiminal organ injury. Differential Diagnosis Differential Diagnoses: The differential diagnosis associated with the presentation includes (, brain bleed, skull fracture, cervical spine fracture,) Lab Data [facility] Lab Attestation statement: I reviewed the patient's lab results. 08/17/24 12:31 08/17/24 12:31 Labs: Lab Results 08/17/24 08/17/24 08/17/24 Range/Units 12:31 17:02 19:25 WBC 14.0 H (4.8-10.8) X10*3/uL RBC 3.65 L (4.20-5.50) X10*6/uL Hgb 10.4 L (12.0-16.0) g/dl Hct 31.9 L (37.0-47.0) % MCV 87.4 (80.0-98.0) fL MCH 28.5 (27.0-33.0) pg MCHC 32.6 (31.0-35.0) g/dl RDW 13.2 (11.0-16.0) % Plt Count 182 D (160-400) X10*3/uL MPV 10.7 (9.4-12.3) fL Immature Gran % (Auto) 0.5 H (0.0-0.4) % Neut % (Auto) 71.7 (45-73) % Lymph % (Auto) 18.8 L (20-40) % [place] % (Auto) 7.2 (2-11) % Eos % (Auto) 1.5 (0-4) % Baso % (Auto) 0.3 (0-2) % Lymph # (Auto) 2.6 (1.2-4.9) X10*3/uL [place] # (Auto) 1.0 (0.1-1.2) X10*3/uL Eos # (Auto) 0.2 (0.0-0.4) X10*3/uL Baso # (Auto) 0.0 (0.0-0.2) X10*3/uL Abs Immat Gran (auto) 0.07 H (0.00-0.03) X10*3/uL Absolute Neuts (auto) 10.1 H (2.0-8.3) x10*3/uL Absolute Nucleated RBC 0.000 (0.0-0.012) X10*3/uL Nucleated RBC % (auto) 0.0 (0.0-0.2) /100WBC PT 11.6 (10.9-12.4) SEC INR 1.0 (0.9-1.1) APTT 33.3 (26.0-36.8) SEC Sodium 142 (135-145) mmol/L Potassium 3.5 (3.3-5.1) mmol/L Chloride 111 H (96-108) mmol/L Carbon Dioxide 22 (22-29) mmol/L Anion Gap 13 (12-20) BUN 24 H (9-16) mg/dL Creatinine 1.00 (0.5-1.4) mg/dL Estim Creat Clear Calc 44.5 Estimated GFR 53 Random Glucose 99 (60-115) mg/dL Calcium 8.6 (8.4-10.2) mg/dL Magnesium 1.0 L* (1.6-2.6) mg/dL Total Bilirubin 0.4 (0.0-1.0) mg/dL AST 17 (5-31) U/L ALT 21 (0-31) U/L Alkaline Phosphatase 124 H (39-117) U/L Troponin I High Sens 5.1 D 5.1 (<3.5-17.0) ng/L Total Protein 7.6 (6.5-8.0) g/dL Albumin 3.6 (3.5-5.0) g/dL Urine Color Yellow Urine Appearance Cloudy Urine pH 6.0 (5.0-9.0) Ur Specific [place] 1.010 (1.005-1.025) Urine Protein 100 (2+) H (Neg-Trace) mg/dL Urine Glucose (UA) Negative (Negative) mg/dL Urine Ketones Negative (Negative) mg/dL Urine Blood Moderate (2+) H (Negative) Urine Nitrite Negative (Negative) Ur Leukocyte Esterase Moderate (2+) H (Negative) Urine RBC 6-10 H (0-2) /HPF Urine WBC >50 H (0-5) /HPF Ur Squamous Epith Cells 0-2 (0-2) /HPF Urine Bacteria None Seen (None Seen) Hyaline Casts 0-2 (0-2) /LPF Independent Interpretation I performed an independent interpretation of an: EKG (Sinus bradycardia. Negative stremi) Independent Historian Clinical information obtained from an independent historian. History obtained from or confirmed by: Other (Patient, [id number]) External Record Review External record reviewed: Other (Prior visits) Prescription Management I considered prescription management with: Antibiotic Discharge Plan Discharge Clinical Impression: Fall, Head injury, Acute UTI Patient Disposition: Home, Self-Care Instructions: Fall Prevention for Older Adults (ED), Head Injury (ED), Urinary Tract Infection in Older Adults (ED) Additional Instructions: Recommend follow-up with primary care provider. Health proxy may need to be inactive by healthcare provider so [employer] application could be expedited. Return to the ED immediately for any abdominal pain, nausea, vomiting, flank pain, fever, chills, dysuria, hematuria, headache, dizziness, inability to walk, pain in extremities, chest pain, shortness of breath, or any other concerning symptoms. Your labs came back at normal baseline. EKG blood work came back negative for heart attack. CT scan of head and neck came back. normal. Urine shows possible infection you will be discharged with antibiotic. Prescriptions: New cefuroxime axetil 250 mg tablet 250 mg PO Q12H 7 Days Qty: 14 0RF No Action potassium chloride 20 mEq Packet 20 meq PO DAILY Qty: 90 2RF levothyroxine 75 mcg tablet 75 mcg PO DAILY lenalidomide [Revlimid] 10 mg Capsule 10 mg PO DAILY Qty: 14 0RF Rx Instructions: swallow whole with glass of water; do not open, crush, chew , break, or dissolve. [id number] lenalidomide [Revlimid] 10 mg Capsule 10 mg PO DAILY Qty: 14 0RF Rx Instructions: swallow whole with glass of water; do not open, crush, chew , break, or dissolve. [id number] mirtazapine 30 mg tablet 30 mg PO BEDTIME aspirin 81 mg tablet,chewable 81 mg PO DAILY omeprazole 20 mg capsule,delayed release(DR/EC) 1 cap PO DAILY fluoxetine 40 mg capsule 1 cap PO DAILY calcium carbonate [Oyster Shell Calcium 500] 500 mg calcium (1,250 mg) Tablet 500 mg PO TID 30 Days Qty: 90 0RF loperamide 2 mg Tablet 2 mg PO Q4H PRN (Reason: Loose Stool) Rx Instructions: administer after each loose stool until symptoms controlled; do not exceed 8 mg per 24 hrs amlodipine 5 mg Tablet 5 mg PO DAILY Qty: 90 0RF Protocol: Hold for SBP< HOLD for SBP < : 90 magnesium oxide 400 mg (241.3 mg magnesium) Tablet 800 mg PO DAILY Qty: 180 0RF chlorhexidine gluconate 0.12 % Mouthwash 15 ml buccal TID Qty: 1500 0RF ertapenem 1 gram recon soln 1 g IV Q24H oxycodone 10 mg tablet 1 tab PO Q12H Qty: 20 0RF Interventions: ED Discharge Assessment Last Done: 08/17/24 22:22 Discharge Date/Time: 08/17/24 22:29 Print Language: Lao
[2024-08-17 12:35] LABS: MANUAL DIFF FLAG NO
[2024-08-17 12:37] LABS: Basophils Percent Auto 0.3 % (0-2); Eosinophils Absolute Auto 0.2 X10*3/uL (0.0-0.4); Eosinophils Percent Auto 1.5 % (0-4); Hematocrit 31.9 % (37.0-47.0); Hemoglobin 10.4 g/dl (12.0-16.0); Imm Gran Abs Auto 0.07 X10*3/uL (0.00-0.03); Imm Gran Pct Auto 0.5 % (0.0-0.4); Lymphocytes Absolute Auto 2.6 X10*3/uL (1.2-4.9); Lymphocytes Percent Auto 18.8 % (20-40); Mean Corpuscular HGB Conc 32.6 g/dl (31.0-35.0); Mean Corpuscular Hemoglobin 28.5 pg (27.0-33.0); Mean Corpuscular Volume 87.4 fL (80.0-98.0); Mean Platelet Volume 10.7 fL (9.4-12.3); Monocytes Percent Auto 7.2 % (2-11); Neutrophils Absolute Auto 10.1 x10*3/uL (2.0-8.3); Neutrophils Percent Auto 71.7 % (45-73); Platelet Count 182 X10*3/uL (160-400); Red Blood Count 3.65 X10*6/uL (4.20-5.50); Red Cell Distribution Width 13.2 % (11.0-16.0)
[2024-08-17 12:57] LABS: Alanine Aminotransferase 21 U/L (0-31); Albumin Level 3.6 g/dL (3.5-5.0); Alkaline Phosphatase 124 U/L (39-117); Anion Gap 13 (12-20); Aspartate Amino Transferase 17 U/L (5-31); Bilirubin Total 0.4 mg/dL (0.0-1.0); Blood Urea Nitrogen 24 mg/dL (9-16); Calcium 8.6 mg/dL (8.4-10.2); Carbon Dioxide 22 mmol/L (22-29); Chloride 111 mmol/L (96-108); Creatinine Clr Calc Pharmacy 44.5; Estimated Glomerular Filt Rate 53; Glucose Random 99 mg/dL (60-115); Potassium 3.5 mmol/L (3.3-5.1); Sodium 142 mmol/L (135-145); Total Protein 7.6 g/dL (6.5-8.0)
--- NOTE | 2024-08-17 16:49 | ECG_ITS ---
Test Reason : FALL Blood Pressure : / mmHG Vent. Rate : 051 BPM Atrial Rate : 051 BPM P-R Int : 128 ms QRS Dur : 086 ms QT Int : 488 ms P-R-T Axes : 025 020 019 degrees QTc Int : 449 ms Sinus bradycardia Nonspecific ST and T wave abnormality Abnormal ECG When compared with ECG of 01-JUN-2024 14:49, No significant change was found Referred By: Eduard Henlsey Electronically Signed By:TYRONE VIVAR
[2024-08-17] MEDS: Magnesium Sulfate/H2O 2 GM/50 ML PIGGYBACK IV (17:05)
--- NOTE | 2024-08-17 17:17 | PC.NURSE ---
20gIV placed in the right AC - labs obtained/sent to lab. medication administered per provider order. family bedside for support. plan of care ongoing. call means placed within reach.
[2024-08-17 17:32] LABS: Troponin-I High Sensitivity 5.1 ng/L (<3.5-17.0)
--- NOTE | 2024-08-17 17:36 | PC.NURSE ---
Mayi Becerril - [phone] (daughter in law)
[2024-08-17 19:39] LABS: Appearance Urine Cloudy; Color Urine Yellow; Glucose Urine UA Negative (Negative); Leukocyte Esterase Urine Moderate (2+) (Negative); Nitrite Urine Negative (Negative); UMIC TRIGGER UACC YES; Urine Blood Moderate (2+) (Negative); Urine Ketones Negative (Negative); Urine Protein 100 (2+) mg/dL (Neg-Trace)
[2024-08-17 19:47] LABS: Prothrombin Time 11.6 SEC (10.9-12.4)
[2024-08-17 19:49] LABS: Partial Thromboplastin Time 33.3 SEC (26.0-36.8)
[2024-08-17 20:18] LABS: Troponin-I High Sensitivity 5.1 ng/L (<3.5-17.0)
[2024-08-17 20:19] LABS: Bacteria Urine None Seen (None Seen); Hyaline Casts Urine 0-2 /LPF (0-2); Squamous Epithelial Cell Urine 0-2 /HPF (0-2); UACC Culture Trigger YES; WBC Urine >50 /HPF (0-5)
== END 2024-08-17 22:29 | disposition home or self-care (01) ==
PROVIDERS: Physician Assistant; Physician Assistant Medical; Emergency Provider Emergency Medicine; PCP Internal Medicine
DX: S09.90XA Unspecified injury of head, initial encounter (principal); W01.0XXA Fall on same level from slipping, tripping and stumbling without subsequent striking against object, initial encounter; Y93.89 Activity, other specified; Y92.89 Other specified places as the place of occurrence of the external cause; Y99.9 Unspecified external cause status; N39.0 Urinary tract infection, site not specified; Z79.899 Other long term (current) drug therapy
CPT/HCPCS: 36415; 70450; 72125; 80053; 81001; 81003; 83735; 84484; 85025; 85610; 85730; 87086; 93005; 96365; 96366; 99284; 99285; J3475

== ENCOUNTER 2024-09-02 10:27 | Emergency (ER) | payer MEDICARE, SELFPAY ==
[2024-09-02 10:46] VITALS: BP 130/45; BP 146/84; PULSE 55; PULSE 64; RESP 16; TEMP 36.7; O2SAT 97; BMI 26.3
[2024-09-02 11:21] LABS: Hematocrit 28.1 % (37.0-47.0); Hemoglobin 9.2 g/dl (12.0-16.0); Mean Corpuscular HGB Conc 32.7 g/dl (31.0-35.0); Mean Corpuscular Hemoglobin 27.5 pg (27.0-33.0); Mean Corpuscular Volume 84.1 fL (80.0-98.0); Mean Platelet Volume 11.4 fL (9.4-12.3); Platelet Count 175 X10*3/uL (160-400); Red Blood Count 3.34 X10*6/uL (4.20-5.50); Red Cell Distribution Width 13.3 % (11.0-16.0); White Blood Count 5.6 X10*3/uL (4.8-10.8)
[2024-09-02 11:44] LABS: Alanine Aminotransferase 66 U/L (0-31); Albumin Level 3.6 g/dL (3.5-5.0); Alkaline Phosphatase 178 U/L (39-117); Anion Gap 17 (12-20); Aspartate Amino Transferase 51 U/L (5-31); Bilirubin Direct 0.3 mg/dL (0.0-0.5); Bilirubin Total 0.6 mg/dL (0.0-1.0); Blood Urea Nitrogen 30 mg/dL (9-16); Calcium 6.9 mg/dL (8.4-10.2); Carbon Dioxide 19 mmol/L (22-29); Chloride 106 mmol/L (96-108); Creatinine Clr Calc Pharmacy 33.3; Estimated Glomerular Filt Rate 39; Glucose Random 111 mg/dL (60-115); Lipase 8 U/L (8-78); Magnesium 0.7 mg/dL (1.6-2.6); Potassium 3.1 mmol/L (3.3-5.1); Sodium 139 mmol/L (135-145); Total Protein 7.4 g/dL (6.5-8.0)
--- NOTE | 2024-09-02 11:46 | ED_ITS ---
HPI - Nausea/Vomiting/Diarrhea General Chief complaint: Nausea/Vomiting/Diarrhea Stated complaint: C/O N/V, -NAUSEA,-VOMITING PER EMS Time Seen by Provider: 09/02/24 10:43 Source: patient and EMS Mode of arrival: EMS Limitations: no limitations History of Present Illness ED Provider: Brnanon Lyman PA-C HPI Narrative: 78 yo Moldovan speaking female with history of multiple myeloma, history of gastritis and duodenitis, H. Pylori, hypothyroidism, who presetns to the ER from home via EMS for evaluation of recurrent vomiting that started last night. She states she was up vomiting several times overnight. She states her vomit was black. She also reports having several episodes of loose black stools. She denies any bright red blood in her vomit or her stools. She denies any associated abdominal pain. She reports weakness and unable to tolerate p.o.. She has loss of appetite. She endorses some mild shortness of breath, denies chest pain or dizziness. She is not on anticoagulation. Denies NSAID or alcohol use. She states she last had a colonoscopy last year that showed a polyp. She is not on anticoagulation or NSAIDs. Takes a baby aspirin. MD elicited complaint: nausea, vomiting and diarrhea Onset (ago): day(s) Description of vomiting: other (black) Description of diarrhea: black tarry Associated nausea: Yes Associated abdominal pain: No Location of pain: none Exacerbating factors: eating Relieving factors: none Associated symptoms: loss of appetite, malaise, nausea/vomiting, shortness of breath and weakness Related Data Home Medications ?Medication ?Instructions ?Recorded ?Confirmed levothyroxine 75 mcg tablet 75 mcg PO DAILY 10/27/20 08/07/24 aspirin 81 mg chewable tablet 81 mg PO DAILY 12/16/20 08/07/24 mirtazapine 30 mg tablet 30 mg PO BEDTIME 12/16/20 08/07/24 omeprazole 20 mg capsule,delayed 1 cap PO DAILY 05/11/22 08/07/24 release fluoxetine 40 mg capsule 1 cap PO DAILY 05/12/22 08/07/24 loperamide 2 mg tablet 2 mg PO Q4H PRN Loose Stool 02/25/24 08/07/24 Previous Rx's ?Medication ?Instructions ?Recorded calcium carbonate (Oyster Shell 500 mg PO TID 30 days #90 tabs 05/13/22 Calcium 500) potassium chloride 20 mEq oral 20 meq PO DAILY #90 ea 01/06/24 packet lenalidomide 10 mg capsule 10 mg PO DAILY #14 caps 02/28/24 (Revlimid) amlodipine 5 mg tablet 5 mg PO DAILY #90 tabs 03/02/24 chlorhexidine gluconate 0.12 % 15 ml buccal TID #1,500 mL 03/02/24 mouthwash ertapenem 1 gram solution for 1 g IV Q24H 03/02/24 injection magnesium oxide 400 mg (241.3 mg 800 mg (2 x 400 mg (241.3 mg 03/02/24 magnesium) tablet magnesium)) PO DAILY #180 tabs oxycodone 10 mg tablet 1 tab PO Q12H #20 tabs 03/02/24 lenalidomide 10 mg capsule 10 mg PO DAILY #14 caps 08/07/24 (Revlimid) cefuroxime axetil 250 mg tablet 250 mg PO Q12H 7 days #14 tabs 08/17/24 ondansetron 4 mg disintegrating 4 mg PO Q8H PRN nausea and 09/02/24 tablet vomiting #5 tabs Allergies Allergy/AdvReac Type Severity Reaction Status Date / Time No Known Allergies Allergy Verified 09/02/24 10:48 [No Known Allergies*] Review of Systems 2 Review of Systems: Yes all other systems are reviewed and are negative Gastrointestinal: Gastrointestinal: Reports nausea PMFSH Past Medical History Medical History Chronic diarrhea Multiple myeloma Tubulovillous adenoma Depression H/O gastroesophageal reflux (GERD) Hx of multiple myeloma Hypothyroidism Surgical History H/O tooth extraction History of bone marrow biopsy History of cholecystectomy Family History Family History Daughter Diabetes Thyroid cancer Social History Social History Household Members: Family Household Members Other:: adult son Housing: Apartment Are you a primary primary care physician to a significant other at home: No Do you presently have visiting nurse or other home services: Yes Alcohol intake: never Comment: 1:[address] until 23:00 due to staffing constraints Patient Tobacco Use Status: Current everyday Tobacco user Tobacco use type: Cigarette Years Smoked: 20 Smoked in Last 30 Days: No e-Cigarette/Vaping Use: Never Used Second Hand Smoke Exposure: No Use of substances other than those prescribed or required for medical reasons: No Substance Use Type: Marijuana Advance Directives: Yes Advance Directives on File: Yes Advance Directives Date on File: 03/15/21 Do you have a plan to hurt others: No Plan service: No Current occupational status: unemployed Physical Exam 2 Vital Signs: Vital Signs: Last Vital Signs Temp 98.0 F 09/02/24 10:46 Pulse 58 09/02/24 15:08 Resp 16 09/02/24 15:08 BP 132/58 L 09/02/24 15:08 Pulse Ox 99 09/02/24 15:08 O2 Del Method Room Air 09/02/24 15:08 BMI result Body Mass Index 26.3 Appearance: Alert. Oriented X3. No acute distress. Poor historian Head: normocephalic, atraumatic. Eyes: Pupils equal, round and reactive to light. ENT: Pharynx normal. No tonsillar swelling or exudate. Neck: Normal inspection. Neck supple. CVS: Normal heart rate and rhythm. Pulses normal. Respiratory: No respiratory distress. Breath sounds normal. Abdomen: Soft and nontender. +BS x4. brown heme negative stool on her brief. Skin: Skin warm and dry. Normal skin color. Normal skin turgor. No rashes. Extremities: No lower extremity edema. No joint swelling. Neuro/psych: Oriented X 3. No motor deficit. No sensory deficit. CN II-XII intact. Normal speech and cognition. Medications Administered Generic Name Dose Route Start Last Admin Trade Name Freq PRN Reason Stop Dose Admin Magnesium Sulfate 2 gm in 50 mls @ 25 mls/hr 09/02/24 14:06 09/02/24 14:32 Magnesium Sulfate/H2o IV 09/02/24 16:05 25 mls/hr ONCE ONE Administration Discontinued Medications Generic Name Dose Route Start Last Admin Trade Name Freq PRN Reason Stop Dose Admin Calcium Carbonate 1,500 mg 09/02/24 14:42 09/02/24 15:41 Calcium Carbonate 750 Mg Tab.Chew PO 09/02/24 14:43 1,500 mg ONCE ONE Administration Magnesium Sulfate 2 gm in 50 mls @ 25 mls/hr 09/02/24 11:44 09/02/24 14:23 Magnesium Sulfate/H2o IV 09/02/24 13:43 Infused ONCE ONE Infusion Pantoprazole Sodium 40 mg 09/02/24 11:46 09/02/24 12:08 Pantoprazole Sodium 40 Mg/10 Ml Vial IVPUSH 09/02/24 11:47 40 mg ONCE ONE Administration Potassium Chloride 40 meq 09/02/24 14:05 09/02/24 14:33 Potassium Chloride Er 20 Meq Tab.Er.Prt PO 09/02/24 14:06 40 meq ONCE ONE Administration Medical Decision Making Medical Decision Making [facility] Narrative: 78-year-old female with history of multiple myeloma presents the ER for evaluation of nausea, vomiting, diarrhea that started last night. No abdominal pain. She reports both her vomitus and stools were black. On examination she has a soft and nontender abdomen. Her stool is soft and light brown, heme negative. IV was established and she was given IV Protonix for concern of possible upper GI bleed. She is not on anticoagulation. She is hemodynamically stable. Lab workup showing some mild normocytic anemia with H&H of 9.2/28.1 from a baseline of 10.4/31.9 couple of weeks ago. Platelets are normal and white count is normal. Labs are also showing significant hypomagnesemia with magnesium of 0.7. Potassium is 3.1. Calcium is 6.9. Patient was given 4 g of IV Mag. 40 mEq of potassium. PO Ca++ Patient has had no vomiting or nausea. She is tolerating clear liquids. She has had a couple episodes of loose light brown bowel movements. Repeat H and H was checked and was stable. She was tolerating PO and feeling much better. Repeat labs were performed that showed normalization of her potassium and magnesium. She is tolerating p.o. and feeling much better. No melanotic stools, no vomiting. At this time she is stable for discharge home with outpatient follow-up. Given strict return precautions. She lives at home with her son who can help monitor her. 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 Stable for DC. All questions answered. Differential Diagnosis Differential Diagnoses: The differential diagnosis associated with the presentation includes Upper GI bleed, lower GI bleed, gastroenteritis, gastritis, colitis, H pylori, medication side effects of Pepto-Bismol or iron Admission/Observation Consideration of admission/observation: Escalation of care including admission/observation considered Consult Healthcare Provider Management of the patient was discussed with: Hospitalist Lab Data MDM Lab Attestation statement: I reviewed the patient's lab results. Anemia, hypomagnesemia, hypo kalemia, hypo calcemia 09/02/24 13:46 09/02/24 15:29 Labs: Lab Results 09/02/24 09/02/24 09/02/24 Range/Units 11:11 11:42 11:59 WBC 5.6 (4.8-10.8) X10*3/uL RBC 3.34 L (4.20-5.50) X10*6/uL Hgb 9.2 L (12.0-16.0) g/dl Hct 28.1 L (37.0-47.0) % MCV 84.1 (80.0-98.0) fL MCH 27.5 (27.0-33.0) pg MCHC 32.7 (31.0-35.0) g/dl RDW 13.3 (11.0-16.0) % Plt Count 175 (160-400) X10*3/uL MPV 11.4 (9.4-12.3) fL Immature Gran % (Auto) Cancelled Neut % (Auto) Cancelled Lymph % (Auto) Cancelled [place] % (Auto) Cancelled Eos % (Auto) Cancelled Baso % (Auto) Cancelled Lymph # (Auto) Cancelled [place] # (Auto) Cancelled Eos # (Auto) Cancelled Baso # (Auto) Cancelled Abs Immat Gran (auto) Cancelled Absolute Neuts (auto) Cancelled Absolute Nucleated RBC 0.000 (0.0-0.012) X10*3/uL Nucleated RBC % (auto) 0.0 (0.0-0.2) /100WBC Neutrophils % (Manual) 81 H (45-73) % Band Neutrophils % 5 (3-5) % Lymphocytes % (Manual) 8 L (20-40) % Monocytes % (Manual) 3 (2-11) % Eosinophils % (Manual) 1 (0-4) % Metamyelocytes % 2 % Abs Neuts (Manual) 4.8 (2.0-8.3) X10*3/uL Lymphocytes # (Manual) 0.4 L (1.2-4.9) X10*3/uL Monocytes # (Manual) 0.2 (0.1-1.2) X10*3/uL Eosinophils # (Manual) 0.1 (0.0-0.4) X10*3/uL Metamyelocytes # 0.1 X10*3/uL Platelet Estimate NORMAL (NORMAL) Plt Morphology Comment NORMAL RBC Morphology NORMAL Sodium 139 (135-145) mmol/L Potassium 3.1 L (3.3-5.1) mmol/L Chloride 106 (96-108) mmol/L Carbon Dioxide 19 L (22-29) mmol/L Anion Gap 17 (12-20) BUN 30 H (9-16) mg/dL Creatinine 1.31 (0.5-1.4) mg/dL Estim Creat Clear Calc 33.3 Estimated GFR 39 Random Glucose 111 (60-115) mg/dL Calcium 6.9 L D (8.4-10.2) mg/dL Magnesium 0.7 L* (1.6-2.6) mg/dL Total Bilirubin 0.6 (0.0-1.0) mg/dL Direct Bilirubin 0.3 (0.0-0.5) mg/dL AST 51 H (5-31) U/L ALT 66 H (0-31) U/L Alkaline Phosphatase 178 H (39-117) U/L Total Protein 7.4 (6.5-8.0) g/dL Albumin 3.6 (3.5-5.0) g/dL Lipase 8 (8-78) U/L Stool Occult Blood NEGATIVE (NEGATIVE) Blood Type O Positive Antibody Screen NEGATIVE 09/02/24 09/02/24 Range/Units 13:46 15:29 WBC (4.8-10.8) X10*3/uL RBC (4.20-5.50) X10*6/uL Hgb 9.3 L (12.0-16.0) g/dl Hct 28.1 L (37.0-47.0) % MCV (80.0-98.0) fL MCH (27.0-33.0) pg MCHC (31.0-35.0) g/dl RDW (11.0-16.0) % Plt Count (160-400) X10*3/uL MPV (9.4-12.3) fL Immature Gran % (Auto) Neut % (Auto) Lymph % (Auto) [place] % (Auto) Eos % (Auto) Baso % (Auto) Lymph # (Auto) [place] # (Auto) Eos # (Auto) Baso # (Auto) Abs Immat Gran (auto) Absolute Neuts (auto) Absolute Nucleated RBC (0.0-0.012) X10*3/uL Nucleated RBC % (auto) (0.0-0.2) /100WBC Neutrophils % (Manual) (45-73) % Band Neutrophils % (3-5) % Lymphocytes % (Manual) (20-40) % Monocytes % (Manual) (2-11) % Eosinophils % (Manual) (0-4) % Metamyelocytes % % Abs Neuts (Manual) (2.0-8.3) X10*3/uL Lymphocytes # (Manual) (1.2-4.9) X10*3/uL Monocytes # (Manual) (0.1-1.2) X10*3/uL Eosinophils # (Manual) (0.0-0.4) X10*3/uL Metamyelocytes # X10*3/uL Platelet Estimate (NORMAL) Plt Morphology Comment RBC Morphology Sodium 137 (135-145) mmol/L Potassium 3.3 (3.3-5.1) mmol/L Chloride 105 (96-108) mmol/L Carbon Dioxide 20 L (22-29) mmol/L Anion Gap 15 (12-20) BUN 31 H (9-16) mg/dL Creatinine 1.31 (0.5-1.4) mg/dL Estim Creat Clear Calc 33.3 Estimated GFR 39 Random Glucose 113 (60-115) mg/dL Calcium 6.8 L (8.4-10.2) mg/dL Magnesium 2.2 (1.6-2.6) mg/dL Total Bilirubin (0.0-1.0) mg/dL Direct Bilirubin (0.0-0.5) mg/dL AST (5-31) U/L ALT (0-31) U/L Alkaline Phosphatase (39-117) U/L Total Protein (6.5-8.0) g/dL Albumin (3.5-5.0) g/dL Lipase (8-78) U/L Stool Occult Blood (NEGATIVE) Blood Type Antibody Screen Independent Historian Clinical information obtained from an independent historian. History obtained from or confirmed by: EMS External Record Review External record reviewed: Inpatient record, Outpatient record and Prior outpatient labs Tests considered The following testing was considered but not selected: considered CT abd but no abdominal pain, low suspicion for obstructive process Prescription Management I considered prescription management with: Antibiotic Chronic Conditions Patient?s care impacted by: Diabetes and Hypertension Critical Care Time Critical Care Time Critical Care Time: Yes Total Critical Care Time: 42 Attestation: I have personally provided critical care time exclusive of time spent on separately billable procedures. Time includes review of lab data, radiology results, discussion with consultants, and monitoring for potential decompensation. Intervention performed as documented. Discharge Plan Discharge Clinical Impression: Hypomagnesemia, Gastroenteritis, Acute hypokalemia Patient Disposition: Home, Self-Care Instructions: Gastroenteritis (DC) Additional Instructions: You lab workup today showed a stable blood count. No bleeding was found in your stool. Your labs showed low potassium and magnesium which were repleted. You most likely have a viral GI bug also known as gastroenteritis. Treatment is supportive care, symptoms usually resolve on their own in 48-72 hours. Recommend rest and plenty of oral hydration. Stick to a bland diet like soup and toast while you are not feeling well. Take the prescribed medication as needed for nausea. Recommend over the counter Pepto Bismol or Imodium for upset stomach and diarrhea. Follow up with your doctor as needed. If you develop new or worsening symptoms call 911 or come back to the ER for further evaluation. Prescriptions: New ondansetron 4 mg tablet,disintegrating 4 mg PO Q8H PRN (Reason: nausea and vomiting) Qty: 5 0RF No Action potassium chloride 20 mEq Packet 20 meq PO DAILY Qty: 90 2RF levothyroxine 75 mcg tablet 75 mcg PO DAILY lenalidomide [Revlimid] 10 mg Capsule 10 mg PO DAILY Qty: 14 0RF Rx Instructions: swallow whole with glass of water; do not open, crush, chew , break, or dissolve. [id number] lenalidomide [Revlimid] 10 mg Capsule 10 mg PO DAILY Qty: 14 0RF Rx Instructions: swallow whole with glass of water; do not open, crush, chew , break, or dissolve. [id number] mirtazapine 30 mg tablet 30 mg PO BEDTIME aspirin 81 mg tablet,chewable 81 mg PO DAILY omeprazole 20 mg capsule,delayed release(DR/EC) 1 cap PO DAILY fluoxetine 40 mg capsule 1 cap PO DAILY calcium carbonate [Oyster Shell Calcium 500] 500 mg calcium (1,250 mg) Tablet 500 mg PO TID 30 Days Qty: 90 0RF loperamide 2 mg Tablet 2 mg PO Q4H PRN (Reason: Loose Stool) Rx Instructions: administer after each loose stool until symptoms controlled; do not exceed 8 mg per 24 hrs amlodipine 5 mg Tablet 5 mg PO DAILY Qty: 90 0RF Protocol: Hold for SBP< HOLD for SBP < : 90 magnesium oxide 400 mg (241.3 mg magnesium) Tablet 800 mg PO DAILY Qty: 180 0RF chlorhexidine gluconate 0.12 % Mouthwash 15 ml buccal TID Qty: 1500 0RF ertapenem 1 gram recon soln 1 g IV Q24H oxycodone 10 mg tablet 1 tab PO Q12H Qty: 20 0RF cefuroxime axetil 250 mg tablet 250 mg PO Q12H 7 Days Qty: 14 0RF Referrals: Erika Morris MD [Primary Care Provider] - Print Language: Moldovan
[2024-09-02 11:47] LABS: Band Neutrophils Percent 5 % (3-5); Eosinophils Absolute Manual 0.1 X10*3/uL (0.0-0.4); Eosinophils Percent Manual 1 % (0-4); Lymphocytes Absolute Manual 0.4 X10*3/uL (1.2-4.9); Lymphocytes Percent Manual 8 % (20-40); Metamyelocytes Absolute 0.1 X10*3/uL; Metamyelocytes Percent 2 %; Monocytes Absolute Manual 0.2 X10*3/uL (0.1-1.2); Monocytes Percent Manual 3 % (2-11); Neutrophils Absolute Manual 4.8 X10*3/uL (2.0-8.3); Neutrophils Percent Manual 81 % (45-73)
[2024-09-02 11:48] LABS: Platelet Estimate NORMAL (NORMAL); Platelet Morphology Comment NORMAL; RBC Morphology NORMAL
[2024-09-02 11:52] LABS: OBS Int Ctl Valid YES; OBS1 NEGATIVE (NEGATIVE)
[2024-09-02 12:06] VITALS: BP 126/51; PULSE 54; RESP 18; O2SAT 99
[2024-09-02] MEDS: Magnesium Sulfate/H2O 2 GM/50 ML PIGGYBACK IV ×2 (12:08→14:32)
[2024-09-02] MEDS: Pantoprazole Sodium 40 MG/10 ML VIAL IVPUSH (12:08)
--- NOTE | 2024-09-02 12:11 | PC.NURSE ---
pt medicated per provider order.
[2024-09-02 14:02] LABS: Hematocrit 28.1 % (37.0-47.0); Hemoglobin 9.3 g/dl (12.0-16.0)
[2024-09-02] MEDS: Potassium Chloride ER 20 MEQ TAB.ER.PRT 40 MEQ PO (14:33)
[2024-09-02 15:08] VITALS: BP 132/58; PULSE 58; RESP 16; O2SAT 99
--- NOTE | 2024-09-02 15:32 | PC.NURSE ---
repeat labs obtained/sent to lab by [email or web address].
[2024-09-02] MEDS: Calcium Carbonate 750 MG TAB.CHEW 1500 MG PO (15:41)
[2024-09-02 15:55] LABS: Anion Gap 15 (12-20); Blood Urea Nitrogen 31 mg/dL (9-16); Calcium 6.8 mg/dL (8.4-10.2); Carbon Dioxide 20 mmol/L (22-29); Chloride 105 mmol/L (96-108); Creatinine Clr Calc Pharmacy 33.3; Estimated Glomerular Filt Rate 39; Glucose Random 113 mg/dL (60-115); Magnesium 2.2 mg/dL (1.6-2.6); Potassium 3.3 mmol/L (3.3-5.1); Sodium 137 mmol/L (135-145)
--- NOTE | 2024-09-02 16:37 | PC.NURSE ---
pt incontinent of stool. pericare performed. new pads placed. when cleaning pt, half dollar sized wound w/ redness/bruising/blistering noted to pt's left side of bottom. tender to the touch. no discharge/foul odor noted. pt remains afebrile. provider notified/aware. barrier cream. allevyn life pad applied. pt turned/repositioned to comfort.
[2024-09-02 18:13] VITALS: BP 132/58; PULSE 58; RESP 16; TEMP 36.7; O2SAT 99
== END 2024-09-02 18:14 | disposition home or self-care (01) ==
PROVIDERS: Physician Assistant; Emergency Provider Emergency Medicine; PCP Internal Medicine
DX: K52.9 Noninfective gastroenteritis and colitis, unspecified (principal); E83.42 Hypomagnesemia; E87.6 Hypokalemia; D64.9 Anemia, unspecified; R06.02 Shortness of breath; F17.210 Nicotine dependence, cigarettes, uncomplicated; Z79.82 Long term (current) use of aspirin; Z79.899 Other long term (current) drug therapy
CPT/HCPCS: 36415; 80048; 80076; 82272; 83690; 83735; 85007; 85014; 85018; 85027; 86850; 86900; 86901; 96365; 96366; 96375; 99284; J2470; J3475

== ENCOUNTER 2024-09-08 14:19 | Outpatient (REF) | payer MEDICARE, SELFPAY ==
--- NOTE | ~2024-09-08 | XR_ITS ---
EXAMINATION: XR SHOULDER, RIGHT CLINICAL INFORMATION: Fell last week. Right shoulder pain. COMPARISON: None available. TECHNIQUE: Two views of the right shoulder. FINDINGS: The study is somewhat limited, as no true external rotation and internal rotation views demonstrating the entirety of the shoulder are submitted. Abnormal, expansile, heterogeneously sclerotic appearance of the acromion, similar compared with February 25, 2024. Old, healed fracture at the posterolateral aspect of the right third rib. No acute fracture or dislocation is appreciated. Question mild degenerative change of the glenohumeral joint and acromioclavicular joint. No acute fracture or dislocation is identified. The soft tissues appear unremarkable. XR/XR shoulder RT min 2V IMPRESSION: No acute finding on this limited study. Electronically signed by: Laurent Ribera MD 09/08/2024 04:51 PM EDT
== END 2024-09-08 14:20 | disposition home or self-care (01) ==
LOC: HO.HHCX 14:19
PROVIDERS: Visit Provider Internal Medicine
DX: M25.512 Pain in left shoulder (principal); G89.29 Other chronic pain
CPT/HCPCS: 36415; 73030; 80048; 83735; 84100

== ENCOUNTER 2024-09-08 14:55 | Outpatient (REF) | payer MEDICARE, SELFPAY ==
[2024-09-08 18:23] LABS: Anion Gap 16 (12-20); Blood Urea Nitrogen 38 mg/dL (9-16); Calcium 9.1 mg/dL (8.4-10.2); Carbon Dioxide 15 mmol/L (22-29); Chloride 108 mmol/L (96-108); Estimated Glomerular Filt Rate 37; Glucose Random 131 mg/dL (60-115); Phosphorus 2.7 mg/dL (2.7-4.5); Sodium 135 mmol/L (135-145)
== END 2024-09-08 14:56 | disposition home or self-care (01) ==
LOC: HO.HHCL 14:55
PROVIDERS: Visit Provider Internal Medicine
DX: Z13.89 Encounter for screening for other disorder (principal)
CPT/HCPCS: 36415; 80048; 83735; 84100

== ENCOUNTER 2024-09-10 16:33 | Outpatient (REF) | payer MEDICARE, SELFPAY ==
[2024-09-10 16:54] LABS: Appearance Urine Turbid; Color Urine Yellow; Glucose Urine UA Negative (Negative); Leukocyte Esterase Urine Large (3+) (Negative); Nitrite Urine Negative (Negative); PH 5.5 (5.0-9.0); UMIC TRIGGER UACC YES; Urine Blood Moderate (2+) (Negative); Urine Ketones Negative (Negative); Urine Protein 100 (2+) mg/dL (Neg-Trace)
[2024-09-10 17:07] LABS: Bacteria Urine 4+ (None Seen); Hyaline Casts Urine 0-2 /LPF (0-2); RBC Urine 0-2 /HPF (0-2); UACC Culture Trigger YES; WBC Urine >50 /HPF (0-5)
== END 2024-09-10 16:34 | disposition home or self-care (01) ==
LOC: HO.HHCLNP 16:33
PROVIDERS: Visit Provider Internal Medicine
DX: L89.321 Pressure ulcer of left buttock, stage 1 (principal)
CPT/HCPCS: 81001; 87086; 87088; 87186

== ENCOUNTER 2024-09-18 12:26 | Inpatient (IN) | payer MEDICARE, SELFPAY ==
--- NOTE | ~2024-09-18 | XR_ITS ---
EXAMINATION: XR LUMBOSACRAL SPINE CLINICAL INFORMATION: Acute low back pain, no trauma, history of multiple myeloma COMPARISON: Bone survey 10/29/2019 TECHNIQUE: Three views of the lumbosacral spine. FINDINGS: The lumbar vertebral bodies demonstrate normal height. Straightening of lumbar lordosis. Minimal retrolisthesis of L4 over L5. Multilevel lumbar spondylosis with osteophytes, endplate sclerosis and intervertebral disc space narrowing most prominent at L2-L3 and L4-L5. Degenerative facet arthropathy most prominent in the lower lumbar spine. No destructive lytic lesion. Surgical clips in the right upper quadrant. The paraspinous soft tissues appear unremarkable. Bilateral sacroiliac joints are intact. XR/XR lumbar spine 2-3V IMPRESSION: No radiographic evidence of acute abnormality involving the lumbar spine. Multilevel lumbar spondylosis with findings most pronounced at L2-L3 and L4-L5. Electronically signed by: Dony Alvarado MD 09/18/2024 05:36 PM EDT
[2024-09-18 13:10] VITALS: BP 117/57; PULSE 62; RESP 18; TEMP 36.4; O2SAT 98; BMI 24.7
--- NOTE | 2024-09-18 13:16 | ED_ITS ---
HPI - General Adult General Chief complaint: Nausea/Vomiting/Diarrhea Stated complaint: urinary problems-diarrhea Time Seen by Provider: 09/18/24 16:08 History of Present Illness ED Provider: Elizabeth DAVALOS narrative: The patient is a 78-year-old female with a history of multiple myeloma. She has recently had problems with low magnesium levels. The patient says that she came to the hospital today because she developed low back pain last night. At first she said that this was ?kidney pain.? She says that she has pain in her lower back that does not lateralize to either side. She says she did not have any injury or trauma recently. She says that she was feeling pretty well yesterday. She says that the pain came during the night last night and she was unable to sleep. She did not take anything for the pain. Today she had a family member drive her to the hospital. She denies any abdominal pain. She says she is hungry. She has had no nausea or vomiting. She has had no fever, sweats, chills. She has had some loose stools. Related Data Home Medications ?Medication ?Instructions ?Recorded ?Confirmed levothyroxine 75 mcg tablet 75 mcg PO DAILY 10/27/20 09/18/24 aspirin 81 mg chewable tablet 81 mg PO DAILY 12/16/20 09/18/24 mirtazapine 30 mg tablet 30 mg PO BEDTIME 12/16/20 09/18/24 fluoxetine 40 mg capsule 1 cap PO DAILY 05/12/22 09/18/24 loperamide 2 mg tablet 2 mg PO Q4H PRN Loose Stool 02/25/24 09/18/24 trazodone 50 mg tablet 12.5 mg PO BID 09/18/24 09/18/24 Previous Rx's ?Medication ?Instructions ?Recorded calcium carbonate (Oyster Shell 500 mg PO TID 30 days #90 tabs 05/13/22 Calcium 500) potassium chloride 20 mEq oral 20 meq PO DAILY #90 ea 01/06/24 packet ondansetron 4 mg disintegrating 4 mg PO Q8H PRN nausea and 09/02/24 tablet vomiting #5 tabs lenalidomide 10 mg capsule 10 mg PO DAILY #14 caps 09/15/24 (Revlimid) Allergies Allergy/AdvReac Type Severity Reaction Status Date / Time No Known Allergies Allergy Verified 09/18/24 13:18 [No Known Allergies*] Review of Systems 2 Review of Systems: Yes all other systems are reviewed and are negative [facility] Past Medical History Medical History Chronic diarrhea Multiple myeloma Tubulovillous adenoma Depression H/O gastroesophageal reflux (GERD) Hx of multiple myeloma Hypothyroidism Surgical History H/O tooth extraction History of bone marrow biopsy History of cholecystectomy Family History Family History Daughter Diabetes Thyroid cancer Social History Social History Household Members: Family Household Members Other:: adult son Housing: Apartment Are you a primary childbirth and infant care teacher to a significant other at home: No Do you presently have visiting nurse or other home services: Yes Alcohol intake: never Comment: 1:[address] until 23:00 due to staffing constraints Patient Tobacco Use Status: Current everyday Tobacco user Tobacco use type: Cigarette Years Smoked: 20 Smoked in Last 30 Days: Yes e-Cigarette/Vaping Use: Never Used Second Hand Smoke Exposure: No Use of substances other than those prescribed or required for medical reasons: No Substance Use Type: Marijuana Advance Directives: Yes Advance Directives on File: Yes Advance Directives Date on File: 03/15/21 service: No Current occupational status: unemployed Physical Exam ED Vital Signs: Vital Signs - 24 hr 09/18/24 13:10 09/18/24 14:49 09/18/24 16:51 Temperature 97.5 F 98.4 F Pulse Rate 62 58 55 Respiratory Rate 18 18 16 Blood Pressure 117/57 L 144/68 H 125/87 Pulse Oximetry 98 98 95 Oxygen Delivery Method Room Air Room Air Room Air 09/18/24 17:38 Temperature 98.2 F Pulse Rate 52 Respiratory Rate 16 Blood Pressure 108/53 L Pulse Oximetry 99 Oxygen Delivery Method Room Air BMI result Body Mass Index 24.7 Const Other: The patient is awake and alert, she is pleasant and cooperative. Does not appear obviously uncomfortable or toxic or ill. HENMT Other: Face is symmetrical. Mucous membranes moist. Eyes Other: Pupils are round equal, conjunctivae clear, extraocular movements intact Neck Neck: Yes no lymphadenopathy and Yes no JVD Resp Effort & Inspection: normal respiratory effort Auscultation: clear to auscultation bilaterally Cardio Rate: regular rate Rhythm: regular rhythm Heart sounds: S1 normal heart sound present and S2 normal heart sound present GI Other: Abdomen is soft and nontender Skin Other: Skin is pale and dry Neuro Other: The patient is awake and alert with a normal mental status. She is Luxem[place]ish- speaking and was interviewed with a private client advisor. Eye movements are intact. Pupils are round equal. Face is symmetrical. Speech is clear. She moves her extremities normally. She seems grossly neurologically intact. Extrem Other: No peripheral edema Course Course Course Narrative: This is an RME performed by Maynor Saldaña CNP: Additional HPI, ROS, PE not included below will be deferred to primary provider. Patient is a 78-year-old female who presents emergency department for evaluation, Reports that she has had ongoing hypomagnesemia for which she was prescribed oral replacement. In addition reports last week was found to have a urinary tract infection for which she was given a course of antibiotics for. She has chronic diarrhea but her diarrhea is much worse over the past week. She is feeling very weak. She is also having pain across her lower back. Denies abdominal pain Plan: Serum labs, urinalysis Medications Administered Discontinued Medications Generic Name Dose Route Start Last Admin Trade Name Elodia PRN Reason Stop Dose Admin Magnesium Sulfate 2 gm in 50 mls @ 150 mls/hr 09/18/24 16:23 09/18/24 17:09 Magnesium Sulfate/H2o IV 09/18/24 16:42 Infused ONCE ONE Infusion Acetaminophen 1,000 mg in 100 mls @ 400 mls/hr 09/18/24 16:32 09/18/24 18:00 Ofirmev IV 09/18/24 16:46 Infused ONCE ONE Infusion Lactated Ringer's 1,000 mls @ 999 mls/hr 09/18/24 16:45 09/18/24 19:43 Lr IV 09/18/24 17:45 Infused .Q1H1M KULDEEP Infusion Calcium Gluconate 2 gm in 100 mls @ 50 mls/hr 09/18/24 18:54 09/18/24 22:20 Calcium Gluconate IV 09/18/24 20:53 Infused ONCE ONE Infusion Medical Decision Making Medical Decision Making MDM Narrative: The patient is a frail 78-year-old woman with a history of multiple myeloma who presents with weakness and low back pain. She has also had diarrhea for the last several days. She just finished a course of antibiotics for UTI. The diarrhea was contemporaneous with taking the antibiotics and did not come after the antibiotics. Clinically the patient looks quite frail and weak. Her labs show significant hypomagnesemia and hypocalcemia. Additionally she seems to have a metabolic acidosis with a bicarb of 16 on her basic metabolic panel. This might be from diarrhea. The patient was treated with IV magnesium and IV calcium and IV fluids. She still looks quite weak and frail and will be admitted further management. Lab Data 09/18/24 13:57 09/18/24 13:57 Labs: Lab Results 09/18/24 Range/Units 13:57 WBC 10.7 (4.8-10.8) X10*3/uL RBC 3.60 L (4.20-5.50) X10*6/uL Hgb 9.8 L (12.0-16.0) g/dl Hct 31.0 L (37.0-47.0) % MCV 86.1 (80.0-98.0) fL MCH 27.2 (27.0-33.0) pg MCHC 31.6 (31.0-35.0) g/dl RDW 14.1 (11.0-16.0) % Plt Count 521 H D (160-400) X10*3/uL MPV 10.2 (9.4-12.3) fL Immature Gran % (Auto) 0.9 H (0.0-0.4) % Neut % (Auto) 71.0 (45-73) % Lymph % (Auto) 18.5 L (20-40) % Banks % (Auto) 7.3 (2-11) % Eos % (Auto) 1.1 (0-4) % Baso % (Auto) 1.2 (0-2) % Lymph # (Auto) 2.0 (1.2-4.9) X10*3/uL [place] # (Auto) 0.8 (0.1-1.2) X10*3/uL Eos # (Auto) 0.1 (0.0-0.4) X10*3/uL Baso # (Auto) 0.1 (0.0-0.2) X10*3/uL Abs Immat Gran (auto) 0.10 H (0.00-0.03) X10*3/uL Absolute Neuts (auto) 7.6 (2.0-8.3) x10*3/uL Absolute Nucleated RBC 0.000 (0.0-0.012) X10*3/uL Nucleated RBC % (auto) 0.0 (0.0-0.2) /100WBC Sodium 139 (135-145) mmol/L Potassium 4.0 (3.3-5.1) mmol/L Chloride 116 H (96-108) mmol/L Carbon Dioxide 16 L (22-29) mmol/L Anion Gap 11 L (12-20) BUN 21 H (9-16) mg/dL Creatinine 1.38 (0.5-1.4) mg/dL Estim Creat Clear Calc 28.5 Estimated GFR 37 Random Glucose 96 (60-115) mg/dL Calcium 6.8 L D (8.4-10.2) mg/dL Magnesium 0.9 L* (1.6-2.6) mg/dL Total Bilirubin 0.4 (0.0-1.0) mg/dL AST 28 (5-31) U/L ALT 35 H (0-31) U/L Alkaline Phosphatase 165 H (39-117) U/L Total Protein 8.2 H (6.5-8.0) g/dL Albumin 3.5 (3.5-5.0) g/dL Influenza Type A (PCR) NEGATIVE (Negative) Influenza Type B (PCR) NEGATIVE (Negative) RSV RNA Qual (PCR) NEGATIVE (Negative) SARS-CoV-2 RNA (RT-PCR) NEGATIVE (Negative) Independent Interpretation I performed an independent interpretation of an: EKG Interpretation: EKG at 14:44 shows sinus bradycardia at 57 beats per minute. QTC is 492. No obvious ischemic changes. Discharge Plan Discharge Clinical Impression: Hypomagnesemia, Hypocalcemia, Diarrhea Patient Disposition: Admitted As Inpatient
[2024-09-18 14:02] LABS: MANUAL DIFF FLAG NO
[2024-09-18 14:12] LABS: Basophils Absolute Auto 0.1 X10*3/uL (0.0-0.2); Basophils Percent Auto 1.2 % (0-2); Eosinophils Absolute Auto 0.1 X10*3/uL (0.0-0.4); Eosinophils Percent Auto 1.1 % (0-4); Hemoglobin 9.8 g/dl (12.0-16.0); Imm Gran Pct Auto 0.9 % (0.0-0.4); Lymphocytes Percent Auto 18.5 % (20-40); Mean Corpuscular HGB Conc 31.6 g/dl (31.0-35.0); Mean Corpuscular Hemoglobin 27.2 pg (27.0-33.0); Mean Corpuscular Volume 86.1 fL (80.0-98.0); Mean Platelet Volume 10.2 fL (9.4-12.3); Monocytes Absolute Auto 0.8 X10*3/uL (0.1-1.2); Monocytes Percent Auto 7.3 % (2-11); Neutrophils Absolute Auto 7.6 x10*3/uL (2.0-8.3); Platelet Count 521 X10*3/uL (160-400); Red Cell Distribution Width 14.1 % (11.0-16.0); White Blood Count 10.7 X10*3/uL (4.8-10.8)
[2024-09-18 14:26] LABS: Alanine Aminotransferase 35 U/L (0-31); Albumin Level 3.5 g/dL (3.5-5.0); Alkaline Phosphatase 165 U/L (39-117); Anion Gap 11 (12-20); Aspartate Amino Transferase 28 U/L (5-31); Bilirubin Total 0.4 mg/dL (0.0-1.0); Blood Urea Nitrogen 21 mg/dL (9-16); Calcium 6.8 mg/dL (8.4-10.2); Carbon Dioxide 16 mmol/L (22-29); Chloride 116 mmol/L (96-108); Creatinine Clr Calc Pharmacy 28.5; Estimated Glomerular Filt Rate 37; Glucose Random 96 mg/dL (60-115); Magnesium 0.9 mg/dL (1.6-2.6); Sodium 139 mmol/L (135-145); Total Protein 8.2 g/dL (6.5-8.0)
--- NOTE | 2024-09-18 14:44 | ECG_ITS ---
Test Reason : HYPOMAGNESIEMIA Blood Pressure : / mmHG Vent. Rate : 057 BPM Atrial Rate : 057 BPM P-R Int : 080 ms QRS Dur : 074 ms QT Int : 506 ms P-R-T Axes : 036 015 015 degrees QTc Int : 492 ms Sinus bradycardia with short [place] Nonspecific ST and T wave abnormality Prolonged QT Abnormal ECG When compared with ECG of 17-AUG-2024 17:00, W[place] interval has decreased Nonspecific T wave abnormality, improved in Anterior leads Referred By: Tami Saldaña Electronically Signed By:Iraj Hernandez
[2024-09-18 14:46] LABS: Influenza A PCR NEGATIVE (Negative); Influenza B PCR NEGATIVE (Negative); Resp Syncy Virus RNA Qual PCR NEGATIVE (Negative); SARS COV2 PCR INHOUSE NEGATIVE (Negative)
[2024-09-18 14:49] VITALS: BP 144/68; PULSE 58; RESP 18; O2SAT 98
[2024-09-18] MEDS: Magnesium Sulfate/H2O 2 GM/50 ML PIGGYBACK IV (16:37)
[2024-09-18] MEDS: Lactated Ringers 1,000 ML 999 ML IV (16:40)
[2024-09-18] MEDS: Acetaminophen 1,000 MG/100 ML PIGGYBACK 400 MG IV (16:50)
[2024-09-18 16:51] VITALS: BP 125/87; PULSE 55; RESP 16; TEMP 36.9; O2SAT 95
[2024-09-18 17:38] VITALS: BP 108/53; PULSE 52; RESP 16; TEMP 36.8; O2SAT 99
[2024-09-18] MEDS: Calcium Gluconate/NaCl,Iso-Osm 2 GM/100 ML PLAST..BAG IV (19:47)
[2024-09-18 21:52] VITALS: BP 126/55; PULSE 55; RESP 14; O2SAT 95
--- NOTE | 2024-09-18 21:52 | P.HPHOSP_ITS ---
History of Present Illness Date of Service: 09/18/24 Attending physician on admission: Poonam Max Chief Complaint: Diarrhea, weakness Pt is a 78-year-old female with a PMH significant for?multiple myeloma, chronic diarrhea, HTN, hypothyroidism, CKD 3, GERD, and mood disorder who presents to the ED with?generalized weakness, anorexia, and worsening diarrhea x1 week. Patient also reports of experiencing lightheadedness and dizziness particularly with position changes. Yesterday family report patient fell onto her buttocks secondary to dizziness. No head strike. Recently finished a 5 day course of antibiotics for UTI. Patient denies fever, chills, nausea, vomiting. No abdominal pain. Denies chest pain/pressure, palpitations. No shortness a breath or difficulty breathing. In the ED pt's vitals stable in largely WNL. Labs were significant for bicarb 16, calcium 6.8, and magnesium 0.9. No leukocytosis. Stable H&H of 9.8/31.0, around baseline. Creatinine stable at 1.38. Mild stable transaminitis of ALT 35 and alk-phos 165. Tested negative for flu, RSV, and COVID. X-ray of lumbar spine negative for acute fracture or subluxation, but showed chronic multilevel lumbar spondylolysis. EKG demonstrated sinus bradycardia 57 with QTc of 492 with T-wave inversions in V1 and III. Pt was treated with acetaminophen, IVF, magnesium sulfate 2 g IV, and calcium gluconate. Pt will be admitted to the hospital under observation for treatment and further evaluation of metabolic acidosis, hypocaclemia, and hypomagnesemia in the setting of worsening acute on chronic diarrhea. Review of Systems 2 Review of Systems: Yes all other systems are reviewed and are negative [facility] Medical History Chronic diarrhea Multiple myeloma Tubulovillous adenoma Depression H/O gastroesophageal reflux (GERD) Hx of multiple myeloma Hypothyroidism Family History Daughter Diabetes Thyroid cancer Surgical History H/O tooth extraction History of bone marrow biopsy History of cholecystectomy Social History Household Members: Family Household Members Other:: adult son Housing: Apartment Are you a primary cardiac care unit nurse to a significant other at home: No Do you presently have visiting nurse or other home services: Yes Alcohol intake: never Comment: 1:[address] until 23:00 due to staffing constraints Patient Tobacco Use Status: Current everyday Tobacco user Tobacco use type: Cigarette Years Smoked: 20 Smoked in Last 30 Days: Yes e-Cigarette/Vaping Use: Never Used Second Hand Smoke Exposure: No Use of substances other than those prescribed or required for medical reasons: No Substance Use Type: Marijuana Advance Directives: Yes Advance Directives on File: Yes Advance Directives Date on File: 03/15/21 service: No Current occupational status: unemployed Meds Allergies Allergy/AdvReac Type Severity Reaction Status Date / Time No Known Allergies Allergy Verified 09/18/24 13:18 [No Known Allergies*] Home Medications ?Medication ?Instructions ?Recorded ?Confirmed ?Last Taken ?Type levothyroxine 75 mcg tablet 75 mcg PO DAILY 10/27/20 09/18/24 09/17/24 History aspirin 81 mg chewable tablet 81 mg PO DAILY 12/16/20 09/18/24 09/17/24 History mirtazapine 30 mg tablet 30 mg PO BEDTIME 12/16/20 09/18/24 09/17/24 History fluoxetine 40 mg capsule 1 cap PO DAILY 05/12/22 09/18/24 09/17/24 History loperamide 2 mg tablet 2 mg PO Q4H PRN Loose Stool 02/25/24 09/18/24 Unknown History trazodone 50 mg tablet 12.5 mg PO BID 09/18/24 09/18/24 09/17/24 History Physical Exam 2 Vital Signs and Narrative: Vital Signs: Last Vital Signs Temp 98.2 F 09/18/24 17:38 Pulse 52 09/18/24 17:38 Resp 16 09/18/24 17:38 BP 108/53 L 09/18/24 17:38 Pulse Ox 99 09/18/24 17:38 O2 Del Method Room Air 09/18/24 17:38 BMI result Body Mass Index 24.7 General: AOx3, in no acute distress. Frail-looking Resp: CTA bilaterally CVS: S1, S2, regular rhythm GI: +BS, NT, no distention Skin: Warm, dry Neuro: Cranial nerves II-XII grossly intact bilaterally. Motor grossly intact bilaterally Extremities: No edema Psych: Appropriate affect Results Labs 09/18/24 13:57 09/18/24 13:57 Labs: Laboratory Results - last 24 hr 09/18/24 13:57 MCV 86.1 MCH 27.2 MCHC 31.6 RDW 14.1 Plt Count 521 H D MPV 10.2 Immature Gran % (Auto) 0.9 H Neut % (Auto) 71.0 Lymph % (Auto) 18.5 L Leon % (Auto) 7.3 Eos % (Auto) 1.1 Baso % (Auto) 1.2 Lymph # (Auto) 2.0 Leon # (Auto) 0.8 Eos # (Auto) 0.1 Baso # (Auto) 0.1 Abs Immat Gran (auto) 0.10 H Absolute Neuts (auto) 7.6 Absolute Nucleated RBC 0.000 Nucleated RBC % (auto) 0.0 Anion Gap 11 L Estim Creat Clear Calc 28.5 Estimated GFR 37 Random Glucose 96 Calcium 6.8 L D Magnesium 0.9 L* Total Bilirubin 0.4 AST 28 ALT 35 H Alkaline Phosphatase 165 H Total Protein 8.2 H Albumin 3.5 Influenza Type A (PCR) NEGATIVE Influenza Type B (PCR) NEGATIVE RSV RNA Qual (PCR) NEGATIVE SARS-CoV-2 RNA (RT-PCR) NEGATIVE Imaging Radiologist's Impressions: Impressions Lumbar Spine X-Ray 09/18/24 17:00 IMPRESSION: No radiographic evidence of acute abnormality involving the lumbar spine. Multilevel lumbar spondylosis with findings most pronounced at L2-L3 and L4-L5. Electronically signed by: Dony Alvarado MD 09/18/2024 05:36 PM EDT RP Assessment and Plan (1) Hypocalcemia: Status: Acute (2) Hypomagnesemia: Status: Acute (3) Metabolic acidosis: Status: Acute Plan Pt is a 78-year-old female with a PMH significant for?multiple myeloma, chronic diarrhea, HTN, hypothyroidism, CKD 3, GERD, and mood disorder who presents to the ED with?generalized weakness, anorexia, and worsening diarrhea x1 week. Pt will be admitted to the hospital under observation for treatment and further evaluation of metabolic acidosis, hypocaclemia, and hypomagnesemia in the setting of worsening acute on chronic diarrhea. Metabolic acidosis in the setting of worsening acute on chronic dirrhea Pt with long-standing chronic diarrhea, worse x1 week Bicarb 16 at time of presentation Check stoo studies, c-diff Imodium prn if studies negative Follow BMP Severe hypomagnesemia Magnesium 0.9 at time of presentation In the setting of above Patient given magnesium IV in the ED Follow Mag Hypocalcemia Calcium 6.8 at times presentation In setting of above Patient is supplemented with calcium gluconate in the ED Follow BMP Hypothyroidism Continue levothyroxine Multiple myeloma Continue home oxycodone, Revlimid GERD Hold PPI due to hypomagnesemia Mood disorder Continue fluoxetine Full Code Attending:?Dr. Max DVT Prophylaxis: Lovenox Patient will be admitted to the hospital under observation for treatment and further evaluation of metabolic acidosis, hypocalcemia and hypomagnesemia in the setting of worsening acute on chronic diarrhea that will require close monitoring of labs and supplementation as necessary. . Quality Stroke Does the patient have a stroke diagnosis?: No VTE Prior VTE?: No VTE Risk Level:: Medical - moderate - high VTE Device Contraindication: Treatment Not Indicated VTE Drug Contraindication: N/A - Med Ordered
--- NOTE | 2024-09-18 22:22 | PHA.MEDREC ---
Addendum entered by Yoselin Alcantar RPh 09/18/24 22:36: CHECKED BY [facility] Original Note: Pharmacy Consult ? Medication Reconciliation Pharmacy has completed the medication reconciliation. Confirmed medications with Patient and Linotype Worker. Patient was able to confirm medications with no issue. She states she is no longer taking Magnesium or Omeprazole and stopped those in the last few days due to stomach issues she has been having. She confirmed she took her morning medications this morning.
[2024-09-18] MEDS: traZODone HCL 25 MG HALFTAB 12.5 MG PO (23:54)
[2024-09-18] MEDS: Enoxaparin Sodium 30 MG/0.3 ML SYRINGE SUBCUT (23:54)
[2024-09-18] MEDS: Calcium Oyster Shell Elemental 500 MG TABLET PO (23:55)
[2024-09-18] MEDS: Mirtazapine 30 MG TABLET PO (23:55)
[2024-09-18 23:57] VITALS: BP 125/44; PULSE 53; RESP 14; O2SAT 95
[2024-09-19] MEDS: 0.9 % Sodium Chloride Flush 3 ML SYRINGE IVFLUSH ×3 (01:04→15:48)
[2024-09-19] MEDS: Loperamide HCl 2 MG CAPSULE PO (01:04)
--- NOTE | 2024-09-19 04:44 | PC.NURSE ---
Assisted patient to commode, sample obtained and sent to lab
[2024-09-19 04:53] LABS: MANUAL DIFF FLAG NO
[2024-09-19 05:01] LABS: Basophils Absolute Auto 0.1 X10*3/uL (0.0-0.2); Basophils Percent Auto 1.4 % (0-2); Eosinophils Absolute Auto 0.2 X10*3/uL (0.0-0.4); Eosinophils Percent Auto 1.8 % (0-4); Hematocrit 30.8 % (37.0-47.0); Imm Gran Pct Auto 1.1 % (0.0-0.4); Lymphocytes Absolute Auto 2.5 X10*3/uL (1.2-4.9); Mean Corpuscular HGB Conc 32.5 g/dl (31.0-35.0); Mean Corpuscular Hemoglobin 27.5 pg (27.0-33.0); Mean Corpuscular Volume 84.8 fL (80.0-98.0); Mean Platelet Volume 10.2 fL (9.4-12.3); Monocytes Absolute Auto 0.8 X10*3/uL (0.1-1.2); Monocytes Percent Auto 8.2 % (2-11); Neutrophils Absolute Auto 5.7 x10*3/uL (2.0-8.3); Neutrophils Percent Auto 60.5 % (45-73); Platelet Count 517 X10*3/uL (160-400); Red Blood Count 3.63 X10*6/uL (4.20-5.50); White Blood Count 9.4 X10*3/uL (4.8-10.8)
[2024-09-19 05:20] LABS: Magnesium 1.6 mg/dL (1.6-2.6)
[2024-09-19 05:24] LABS: Alanine Aminotransferase 32 U/L (0-31); Albumin Level 3.4 g/dL (3.5-5.0); Alkaline Phosphatase 177 U/L (39-117); Anion Gap 14 (12-20); Aspartate Amino Transferase 31 U/L (5-31); Bilirubin Total 0.3 mg/dL (0.0-1.0); Blood Urea Nitrogen 19 mg/dL (9-16); Calcium 8.2 mg/dL (8.4-10.2); Carbon Dioxide 14 mmol/L (22-29); Chloride 116 mmol/L (96-108); Creatinine Clr Calc Pharmacy 34.9; Estimated Glomerular Filt Rate 46; Glucose Random 97 mg/dL (60-115); Potassium 4.4 mmol/L (3.3-5.1); Sodium 140 mmol/L (135-145); Total Protein 8.5 g/dL (6.5-8.0)
[2024-09-19] MEDS: Levothyroxine Sodium 75 MCG TABLET PO (05:26)
[2024-09-19 05:48] VITALS: BP 176/73; PULSE 57; RESP 16; TEMP 36.8; O2SAT 97
[2024-09-19 06:38] LABS: CDiff Gene PCR NEGATIVE (Negative)
[2024-09-19] MEDS: Aspirin 81 MG TAB.CHEW PO (07:45)
[2024-09-19] MEDS: traZODone HCL 25 MG HALFTAB 12.5 MG PO ×2 (07:45→21:47)
[2024-09-19] MEDS: Calcium Oyster Shell Elemental 500 MG TABLET PO ×3 (07:46→21:47)
[2024-09-19] MEDS: FLUoxetine HCl 20 MG CAPSULE 40 MG PO (07:46)
[2024-09-19] MEDS: Potassium Chloride Packet 20 MEQ PACKET PO (07:47)
[2024-09-19 08:14] VITALS: BP 155/65; PULSE 56; RESP 19; TEMP 36.5; O2SAT 98
--- NOTE | 2024-09-19 08:44 | PC.NURSE ---
report recieved from previous RN, patient resting comfortably on stretcher, medicated with morning medications per JAN and provided with meal tray, patient not offering any complaints at this time, plan of care remains ongoing
--- NOTE | 2024-09-19 09:03 | PC.NURSE ---
patient noted to be incontinent of stool, upon changing patient this RN noted area of excoriated skin to buttocks, wound cleansed and moisture barrier dressing applied. unsure of how long wound has been present. pericare provided to patient, linens changed.
--- NOTE | 2024-09-19 10:48 | PC.NURSE ---
patient frequently incontinent of urine and stool, educated on need for urine sample, however unable to provide due to incontinence
--- NOTE | 2024-09-19 11:48 | P.PNIM_ITS ---
Subjective Subjective Date of Service: 09/19/24 Review of Systems Follow up diarrhea hypomag feeling better Physical Exam 2 Vital Signs: Vital Signs: Last Vital Signs Temp 97.7 F 09/19/24 08:14 Pulse 56 09/19/24 08:14 Resp 19 09/19/24 08:14 BP 155/65 H 09/19/24 08:14 Pulse Ox 98 09/19/24 08:14 O2 Del Method Room Air 09/19/24 08:14 BMI result Body Mass Index 24.7 Appearing in no acute distress lung sounds are clear to auscultation heart regular rate rhythm, clear S1, S2 positive bowel sounds, abdomen is soft, nontender neuro patient is alert x3, no focal deficits Objective Data Active Medications Acetaminophen (Acetaminophen 325 Mg Tablet) 650 mg PO Q6H PRN PRN Reason: Pain, Mild (Pain Scale 1-3), fever or headache Aspirin (Aspirin 81 Mg Tab.Chew) 81 mg PO DAILY [facility] Last Admin: 09/19/24 07:45 Dose: 81 mg Documented By: LUNA Calcium Carbonate (Calcium Carbonate 750 Mg Tab.Chew) 750 mg PO Q4H PRN PRN Reason: Heartburn Calcium Carbonate (Calcium Oyster Shell Elemental 500 Mg Tablet) 500 mg PO TID [facility] Last Admin: 09/19/24 07:46 Dose: 500 mg Documented By: LUNA Enoxaparin Sodium (Enoxaparin Sodium 30 Mg/0.3 Ml Syringe) 30 mg SUBCUT Q24H [facility] Last Admin: 09/18/24 23:54 Dose: 30 mg Documented By: BEN Fluoxetine HCl (Fluoxetine Hcl 20 Mg Capsule) 40 mg PO DAILY [facility] Last Admin: 09/19/24 07:46 Dose: 40 mg Documented By: LUNA Levothyroxine Sodium (Levothyroxine Sodium 75 Mcg Tablet) 75 mcg PO DAILY@0630 [facility] Last Admin: 09/19/24 05:26 Dose: 75 mcg Documented By: PACO Magnesium Hydroxide (Milk Of Magnesia 30 Ml Oral.Susp) 30 ml PO DAILY PRN PRN Reason: Constipation Melatonin (Melatonin 3 Mg Tablet) 6 mg PO BEDTIME PRN PRN Reason: Insomnia Mirtazapine (Mirtazapine 30 Mg Tablet) 30 mg PO BEDTIME [facility] Last Admin: 09/18/24 23:55 Dose: 30 mg Documented By: BEN Non-Formulary Medication (Lenalidomide [Revlimid]) 10 mg PO DAILY [facility] Ondansetron HCl (Ondansetron Hcl 4 Mg/2 Ml Vial) 4 mg IVPUSH Q8H PRN PRN Reason: Nausea and Vomiting Potassium Chloride (Potassium Chloride Packet 20 Meq Packet) 20 meq PO DAILY [facility] Last Admin: 09/19/24 07:47 Dose: 20 meq Documented By: LUNA Sodium Chloride (0.9 % Sodium Chloride Flush 3 Ml Syringe) 3 ml IVFLUSH QSHIFT [facility] Last Admin: 09/19/24 07:47 Dose: 3 ml Documented By: LUNA Trazodone HCl (Trazodone Hcl 25 Mg Halftab) 12.5 mg PO BID [facility] Last Admin: 09/19/24 07:45 Dose: 12.5 mg Documented By: LUNA Labs 09/19/24 04:47 09/19/24 04:47 Labs: Laboratory Results - last 24 hr 09/18/24 09/19/24 09/19/24 13:57 04:46 04:47 MCV 86.1 84.8 MCH 27.2 27.5 MCHC 31.6 32.5 RDW 14.1 14.0 Plt Count 521 H D 517 H MPV 10.2 10.2 Immature Gran % (Auto) 0.9 H 1.1 H Neut % (Auto) 71.0 60.5 Lymph % (Auto) 18.5 L 27.0 [place] % (Auto) 7.3 8.2 Eos % (Auto) 1.1 1.8 Baso % (Auto) 1.2 1.4 Lymph # (Auto) 2.0 2.5 [place] # (Auto) 0.8 0.8 Eos # (Auto) 0.1 0.2 Baso # (Auto) 0.1 0.1 Abs Immat Gran (auto) 0.10 H 0.10 H Absolute Neuts (auto) 7.6 5.7 Absolute Nucleated RBC 0.000 0.000 Nucleated RBC % (auto) 0.0 0.0 Anion Gap 11 L 14 Estim Creat Clear Calc 28.5 34.9 Estimated GFR 37 46 Random Glucose 96 97 Calcium 6.8 L D 8.2 L D Magnesium 0.9 L* 1.6 Total Bilirubin 0.4 0.3 AST 28 31 ALT 35 H 32 H Alkaline Phosphatase 165 H 177 H Total Protein 8.2 H 8.5 H Albumin 3.5 3.4 L C. difficile Tox B Gene NEGATIVE Influenza Type A (PCR) NEGATIVE Influenza Type B (PCR) NEGATIVE RSV RNA Qual (PCR) NEGATIVE SARS-CoV-2 RNA (RT-PCR) NEGATIVE Assessment and Plan (1) Metabolic acidosis: Status: Acute (2) Diarrhea: Status: Acute Plan Pt is a 78-year-old female with a PMH significant for?multiple myeloma, chronic diarrhea, HTN, hypothyroidism, CKD 3, GERD, and mood disorder who presents to the ED with?generalized weakness, anorexia, and worsening diarrhea x1 week. Pt will be admitted to the hospital under observation for treatment and further evaluation of metabolic acidosis, hypocaclemia, and hypomagnesemia in the setting of worsening acute on chronic diarrhea. Metabolic acidosis in the setting of worsening acute on chronic diarrhea Pt with long-standing chronic diarrhea, worse x1 week Bicarb 16 at time of presentation Check stool studies, c-diff neg Imodium prn if studies negative Follow BMP Severe hypomagnesemia. Resolved Magnesium 0.9 at time of presentation s/p magnesium IV Follow Mag Hypocalcemia Calcium 6.8 at times presentation In setting of above Patient is supplemented with calcium gluconate Follow BMP Hypothyroidism Continue levothyroxine Multiple myeloma Continue home oxycodone, Revlimid GERD Hold PPI due to hypomagnesemia Mood disorder Continue fluoxetine Full Code Attending:?Dr. Junior DVT Prophylaxis: Lovenox Quality Stroke Does the patient have a stroke diagnosis?: No VTE Prior VTE?: No VTE Risk Level:: Medical - moderate - high VTE Device Contraindication: Treatment Not Indicated VTE Drug Contraindication: N/A - Med Ordered
[2024-09-19 11:53] LABS: Adenovirus F 40/41 Not Detected (Not Detect.); Astrovirus Not Detected (Not Detect.); Campylobacter Not Detected (Not Detect.); Cryptosporidium Not Detected (Not Detect.); Cyclospora cayetanensis Not Detected (Not Detect.); E. coli EAEC Not Detected (Not Detect.); E. coli EPEC Not Detected (Not Detect.); E. coli ETEC Not Detected (Not Detect.); E. coli STEC Not Detected (Not Detect.); Entamoeba histolytica Not Detected (Not Detect.); Giardia lamblia Not Detected (Not Detect.); Norovirus GI/GII Not Detected (Not Detect.); Plesiomonas shigelloides Not Detected (Not Detect.); Rotavirus A Not Detected (Not Detect.); Salmonella Not Detected (Not Detect.); Sapovirus Not Detected (Not Detect.); Shigella sp./EIEC Not Detected (Not Detect.); Vibrio Not Detected (Not Detect.); Vibrio Cholerae Not Detected (Not Detect.); Yersinia enterocolitica Not Detected (Not Detect.)
--- NOTE | 2024-09-19 11:57 | MHC.EDTECH ---
Patient Out of bed in chair. In ADL care,I gave patient full bed bath oral care as well as grooming change all her linen on bed.
--- NOTE | 2024-09-19 12:26 | PC.NURSE ---
patient provided with lunch tray, to be transported to unit by transport
--- NOTE | 2024-09-19 12:27 | PC.NURSE ---
attempted to call granddaughter homero to update on plan, no response with phone number provided
[2024-09-19 13:05] VITALS: BP 148/67; PULSE 56; RESP 18; TEMP 36.6; O2SAT 98
--- NOTE | 2024-09-19 13:41 | HO.SKINPHOTO ---
Location: Right buttock Category: Stage: Length: Width: Depth: cm Location: Category: Stage: Length: Width: Depth: cm Location: Category: Stage: Length: Width: Depth: cm Location: Category: Stage: Length: Width: Depth: cm Location: Category: Stage: Length: Width: Depth: cm Location: Category: Stage: Length: Width: Depth: cm
[2024-09-19] MEDS: Flu Vacc TS2024-25(6mos up)/PF 0.5 ML SYRINGE IM (15:31)
[2024-09-19 15:53] VITALS: BP 138/64; PULSE 60; RESP 16; TEMP 36.9; O2SAT 98
--- NOTE | 2024-09-19 16:25 | MHC.CM.PN ---
PATIENT AFGHAN SPEAKING, CM ASSESSMENT COMPLETED W/ BEEF TRIMMER ASSISTANCE. PATIENT LIVES IN AN APARTMENT W/ HER SON. HAS A BEE ROBBER 2HRS/DAY MON-FRI. SON ASSISTS PRN ON WEEKENDS. AMBULATES W/ WALKER. PCP KATIE SHUKLA MD REPORTS SHE HAS AN HCP NAMING HER SON [facility]. COPY REQUESTED. DP: GOAL IS HOME W/ SERVICES. REFERRAL TO [facility]. WILL NEED PT EVAL. CM WILL CONTINUE TO FOLLOW.
--- NOTE | 2024-09-19 16:45 | PC.NURSE ---
Patient experienced x2 episodes of incontinence. Unable to obtain clean catch urine sample at this time. Patient educated on need for sample and verbalized understanding. Patient agreeable to ring for staff when she next feels urge to void.
[2024-09-19 19:36] VITALS: BP 139/76; PULSE 64; RESP 20; TEMP 36.7; O2SAT 98
[2024-09-19] MEDS: Melatonin 3 MG TABLET 6 MG PO (21:47)
[2024-09-19] MEDS: Enoxaparin Sodium 30 MG/0.3 ML SYRINGE SUBCUT (21:47)
[2024-09-19] MEDS: Mirtazapine 30 MG TABLET PO (21:47)
[2024-09-19] MEDS: Acetaminophen 325 MG TABLET 650 MG PO (21:47)
[2024-09-19 23:56] VITALS: BP 158/72; PULSE 57; RESP 18; TEMP 36.2; O2SAT 93
[2024-09-20] MEDS: 0.9 % Sodium Chloride Flush 3 ML SYRINGE IVFLUSH ×4 (01:16→21:33)
[2024-09-20 03:07] VITALS: BP 114/56; PULSE 55; RESP 16; TEMP 36.6; O2SAT 96
[2024-09-20] MEDS: Levothyroxine Sodium 75 MCG TABLET PO (05:48)
[2024-09-20 08:00] VITALS: BP 145/61; PULSE 59; RESP 18; TEMP 36.4; O2SAT 97
[2024-09-20 08:35] LABS: Blood Urea Nitrogen 16 mg/dL (9-16); Creatinine Clr Calc Pharmacy 32.8; Estimated Glomerular Filt Rate 43; Glucose Random 102 mg/dL (60-115); Magnesium 1.6 mg/dL (1.6-2.6)
[2024-09-20 08:46] LABS: Anion Gap 13 (12-20); Calcium 9.4 mg/dL (8.4-10.2); Carbon Dioxide 11 mmol/L (22-29); Chloride 118 mmol/L (96-108); Potassium 4.6 mmol/L (3.3-5.1); Sodium 137 mmol/L (135-145)
[2024-09-20] MEDS: Potassium Chloride Packet 20 MEQ PACKET PO (08:51)
[2024-09-20] MEDS: Calcium Oyster Shell Elemental 500 MG TABLET PO ×3 (08:51→21:28)
[2024-09-20] MEDS: Aspirin 81 MG TAB.CHEW PO (08:51)
[2024-09-20] MEDS: FLUoxetine HCl 20 MG CAPSULE 40 MG PO (08:51)
[2024-09-20] MEDS: traZODone HCL 25 MG HALFTAB 12.5 MG PO ×2 (08:51→21:28)
[2024-09-20 09:11] LABS: Hemoglobin 10.6 g/dl (12.0-16.0); Mean Corpuscular HGB Conc 31.2 g/dl (31.0-35.0); Mean Corpuscular Hemoglobin 27.5 pg (27.0-33.0); Mean Corpuscular Volume 88.1 fL (80.0-98.0); Mean Platelet Volume 10.9 fL (9.4-12.3); Platelet Count 431 X10*3/uL (160-400); Red Blood Count 3.86 X10*6/uL (4.20-5.50); Red Cell Distribution Width 14.5 % (11.0-16.0); White Blood Count 9.6 X10*3/uL (4.8-10.8)
--- NOTE | 2024-09-20 09:27 | P.PNIM_ITS ---
Subjective Subjective Date of Service: 09/20/24 Review of Systems Follow up diarrhea hypomag resolved feeling better Physical Exam 2 Vital Signs: Vital Signs: Last Vital Signs Temp 97.6 F 09/20/24 08:00 Pulse 59 09/20/24 08:00 Resp 18 09/20/24 08:00 BP 145/61 H 09/20/24 08:00 Pulse Ox 97 09/20/24 08:00 O2 Del Method Room Air 09/20/24 08:00 BMI result Body Mass Index 24.7 Appearing in no acute distress lung sounds are clear to auscultation heart regular rate rhythm, clear S1, S2 positive bowel sounds, abdomen is soft, nontender neuro patient is alert x3, no focal deficits Objective Data Active Medications Acetaminophen (Acetaminophen 325 Mg Tablet) 650 mg PO Q6H PRN PRN Reason: Pain, Mild (Pain Scale 1-3), fever or headache Last Admin: 09/19/24 21:47 Dose: 650 mg Documented By: STEFANY Aspirin (Aspirin 81 Mg Tab.Chew) 81 mg PO DAILY [facility] Last Admin: 09/20/24 08:51 Dose: 81 mg Documented By: KRISTI Calcium Carbonate (Calcium Carbonate 750 Mg Tab.Chew) 750 mg PO Q4H PRN PRN Reason: Heartburn Calcium Carbonate (Calcium Oyster Shell Elemental 500 Mg Tablet) 500 mg PO TID [facility] Last Admin: 09/20/24 08:51 Dose: 500 mg Documented By: KRISTI Enoxaparin Sodium (Enoxaparin Sodium 30 Mg/0.3 Ml Syringe) 30 mg SUBCUT Q24H [facility] Last Admin: 09/19/24 21:47 Dose: 30 mg Documented By: STEFANY Fluoxetine HCl (Fluoxetine Hcl 20 Mg Capsule) 40 mg PO DAILY [facility] Last Admin: 09/20/24 08:51 Dose: 40 mg Documented By: KRISTI Levothyroxine Sodium (Levothyroxine Sodium 75 Mcg Tablet) 75 mcg PO DAILY@0630 [facility] Last Admin: 09/20/24 05:48 Dose: 75 mcg Documented By: STEFANY Magnesium Hydroxide (Milk Of Magnesia 30 Ml Oral.Susp) 30 ml PO DAILY PRN PRN Reason: Constipation Melatonin (Melatonin 3 Mg Tablet) 6 mg PO BEDTIME PRN PRN Reason: Insomnia Last Admin: 09/19/24 21:47 Dose: 6 mg Documented By: STEFANY Mirtazapine (Mirtazapine 30 Mg Tablet) 30 mg PO BEDTIME [facility] Last Admin: 09/19/24 21:47 Dose: 30 mg Documented By: STEFANY Non-Formulary Medication (Lenalidomide [Revlimid]) 10 mg PO DAILY [facility] Ondansetron HCl (Ondansetron Hcl 4 Mg/2 Ml Vial) 4 mg IVPUSH Q8H PRN PRN Reason: Nausea and Vomiting Potassium Chloride (Potassium Chloride Packet 20 Meq Packet) 20 meq PO DAILY [facility] Last Admin: 09/20/24 08:51 Dose: 20 meq Documented By: KRISTI Sodium Chloride (0.9 % Sodium Chloride Flush 3 Ml Syringe) 3 ml IVFLUSH QSHIFT [facility] Last Admin: 09/20/24 08:52 Dose: 3 ml Documented By: KRISTI Trazodone HCl (Trazodone Hcl 25 Mg Halftab) 12.5 mg PO BID [facility] Last Admin: 09/20/24 08:51 Dose: 12.5 mg Documented By: KRISTI Labs 09/20/24 07:55 09/20/24 07:55 Labs: Laboratory Results - last 24 hr 09/19/24 09/20/24 04:46 07:55 MCV 88.1 MCH 27.5 MCHC 31.2 RDW 14.5 Plt Count 431 H MPV 10.9 Absolute Nucleated RBC 0.000 Nucleated RBC % (auto) 0.0 Anion Gap 13 Estim Creat Clear Calc 32.8 Estimated GFR 43 Random Glucose 102 Calcium 9.4 D Magnesium 1.6 Stl C. cayetanensis PCR Not Detected Stool Rotavirus A PCR Not Detected Stl Adenov F 40/41 PCR Not Detected Stool Astrovirus (PCR) Not Detected Stool Campylobacter PCR Not Detected Stool Cryptosporidium PCR Not Detected Stl Sh Tox Pr E STEC PCR Not Detected Stool E coli O157 PCR Not applicable Stl Enterotoxigenic E PCR Not Detected Stool EPEC (PCR) Not Detected Stool EAEC (PCR) Not Detected Stl E. histolytica PCR Not Detected Stool Giardia Lamblia PCR Not Detected Stl P. shigelloides PCR Not Detected Stool Salmonella PCR Not Detected Stool Sapovirus (PCR) Not Detected Stl Shigella/EIEC PCR Not Detected St Y.enterocolitica PCR Not Detected Stool Vibrio (PCR) Not Detected Stl Vibrio cholerae PCR Not Detected Stl Norovirus GI/GII PCR Not Detected Assessment and Plan (1) Metabolic acidosis: Status: Acute (2) Diarrhea: Status: Acute Plan Pt is a 78-year-old female with a PMH significant for?multiple myeloma, chronic diarrhea, HTN, hypothyroidism, CKD 3, GERD, and mood disorder who presents to the ED with?generalized weakness, anorexia, and worsening diarrhea x1 week. Pt will be admitted to the hospital under observation for treatment and further evaluation of metabolic acidosis, hypocaclemia, and hypomagnesemia in the setting of worsening acute on chronic diarrhea. Metabolic acidosis in the setting of worsening acute on chronic diarrhea Pt with long-standing chronic diarrhea, worse x1 week Bicarb 16 at time of presentation neg stool studies and c-diff Imodium prn if studies negative Follow BMP Severe hypomagnesemia. Resolved Magnesium 0.9 at time of presentation s/p magnesium IV Follow Mag Hypocalcemia Calcium 6.8 at times presentation In setting of above Patient is supplemented with calcium gluconate Follow BMP Hypothyroidism Continue levothyroxine Multiple myeloma Continue home oxycodone, Revlimid GERD Hold PPI due to hypomagnesemia Mood disorder Continue fluoxetine Full Code Attending:?Dr. Junior DVT Prophylaxis: Cerebrexnox Quality Stroke Does the patient have a stroke diagnosis?: No VTE Prior VTE?: No VTE Risk Level:: Medical - moderate - high VTE Device Contraindication: Treatment Not Indicated VTE Drug Contraindication: N/A - Med Ordered
[2024-09-20 09:59] LABS: Appearance Urine Turbid; Color Urine Yellow; Glucose Urine UA Negative (Negative); Leukocyte Esterase Urine Large (3+) (Negative); Nitrite Urine Negative (Negative); Specific Gravity - Urine 1.015 (1.005-1.025); UMIC TRIGGER UACC YES; Urine Blood Small (1+) (Negative); Urine Ketones Negative (Negative); Urine Protein 100 (2+) mg/dL (Neg-Trace)
[2024-09-20] MEDS: Loperamide HCl 2 MG CAPSULE 4 MG PO (10:08)
[2024-09-20 10:13] LABS: Bacteria Urine 4+ (None Seen); RBC Urine 0-2 /HPF (0-2); UACC Culture Trigger YES; WBC Urine >50 /HPF (0-5)
[2024-09-20 11:29] VITALS: BP 141/74; PULSE 59; RESP 18; TEMP 36.7; O2SAT 98
--- NOTE | 2024-09-20 11:55 | PC.NURSE ---
Moura catheter not placed per Kayla Hartmann.
[2024-09-20 15:49] VITALS: BP 146/77; PULSE 64; RESP 18; TEMP 36.7; O2SAT 98
[2024-09-20 19:47] VITALS: BP 145/68; PULSE 71; RESP 18; TEMP 36.9; O2SAT 99
[2024-09-20] MEDS: Mirtazapine 30 MG TABLET PO (21:28)
[2024-09-20] MEDS: Enoxaparin Sodium 30 MG/0.3 ML SYRINGE SUBCUT (21:28)
[2024-09-20 23:30] VITALS: BP 169/79; PULSE 78; RESP 16; TEMP 36; O2SAT 97
[2024-09-21] VITALS (7 sets, daily range): BP systolic 106–167; BP diastolic 60–84; PULSE 60–73; RESP 16–18; TEMP 36–36.4; O2SAT 96–100; BMI 24.7
[2024-09-21] MEDS: Levothyroxine Sodium 75 MCG TABLET PO (06:21)
[2024-09-21] MEDS: 0.9 % Sodium Chloride Flush 3 ML SYRINGE IVFLUSH (09:47)
[2024-09-21] MEDS: traZODone HCL 25 MG HALFTAB 12.5 MG PO ×2 (09:47→20:57)
[2024-09-21] MEDS: FLUoxetine HCl 20 MG CAPSULE 40 MG PO (09:48)
[2024-09-21] MEDS: Aspirin 81 MG TAB.CHEW PO (09:48)
[2024-09-21] MEDS: Calcium Oyster Shell Elemental 500 MG TABLET PO (09:48)
[2024-09-21] MEDS: Potassium Chloride Packet 20 MEQ PACKET PO (09:49)
[2024-09-21 11:59] LABS: Anion Gap 12 (12-20); Blood Urea Nitrogen 25 mg/dL (9-16); Calcium 10.6 mg/dL (8.4-10.2); Carbon Dioxide 14 mmol/L (22-29); Chloride 117 mmol/L (96-108); Creatinine Clr Calc Pharmacy 26.4; Estimated Glomerular Filt Rate 34; Glucose Random 122 mg/dL (60-115); Potassium 5.5 mmol/L (3.3-5.1); Sodium 137 mmol/L (135-145)
--- NOTE | 2024-09-21 12:24 | P.PNIM_ITS ---
Subjective Subjective Date of Service: 09/21/24 Review of Systems Follow up diarrhea hypomag resolved feeling better Physical Exam 2 Vital Signs: Vital Signs: Last Vital Signs Temp 97.5 F 09/21/24 11:30 Pulse 65 09/21/24 11:30 Resp 18 09/21/24 11:30 BP 106/70 09/21/24 11:30 Pulse Ox 100 09/21/24 11:30 O2 Del Method Room Air 09/21/24 11:30 BMI result Body Mass Index 24.7 Appearing in no acute distress lung sounds are clear to auscultation heart regular rate rhythm, clear S1, S2 positive bowel sounds, abdomen is soft, nontender neuro patient is alert x3, no focal deficits Objective Data Active Medications Acetaminophen (Acetaminophen 325 Mg Tablet) 650 mg PO Q6H PRN PRN Reason: Pain, Mild (Pain Scale 1-3), fever or headache Last Admin: 09/19/24 21:47 Dose: 650 mg Documented By: STEFANY Aspirin (Aspirin 81 Mg Tab.Chew) 81 mg PO DAILY [facility] Last Admin: 09/21/24 09:48 Dose: 81 mg Documented By: MAX Calcium Carbonate (Calcium Carbonate 750 Mg Tab.Chew) 750 mg PO Q4H PRN PRN Reason: Heartburn Calcium Carbonate (Calcium Oyster Shell Elemental 500 Mg Tablet) 500 mg PO TID [facility] Last Admin: 09/21/24 09:48 Dose: 500 mg Documented By: MAX Enoxaparin Sodium (Enoxaparin Sodium 30 Mg/0.3 Ml Syringe) 30 mg SUBCUT Q24H [facility] Last Admin: 09/20/24 21:28 Dose: 30 mg Documented By: CIRILO Fluoxetine HCl (Fluoxetine Hcl 20 Mg Capsule) 40 mg PO DAILY [facility] Last Admin: 09/21/24 09:48 Dose: 40 mg Documented By: MAX Levothyroxine Sodium (Levothyroxine Sodium 75 Mcg Tablet) 75 mcg PO DAILY@0630 [facility] Last Admin: 09/21/24 06:21 Dose: 75 mcg Documented By: CIRILO Loperamide HCl (Loperamide Hcl 2 Mg Capsule) 2 mg PO Q4H PRN PRN Reason: Diarrhea Magnesium Hydroxide (Milk Of Magnesia 30 Ml Oral.Susp) 30 ml PO DAILY PRN PRN Reason: Constipation Melatonin (Melatonin 3 Mg Tablet) 6 mg PO BEDTIME PRN PRN Reason: Insomnia Last Admin: 09/19/24 21:47 Dose: 6 mg Documented By: STEFANY Mirtazapine (Mirtazapine 30 Mg Tablet) 30 mg PO BEDTIME [facility] Last Admin: 09/20/24 21:28 Dose: 30 mg Documented By: CIRILO Non-Formulary Medication (Lenalidomide [Revlimid]) 10 mg PO DAILY [facility] Ondansetron HCl (Ondansetron Hcl 4 Mg/2 Ml Vial) 4 mg IVPUSH Q8H PRN PRN Reason: Nausea and Vomiting Potassium Chloride (Potassium Chloride Packet 20 Meq Packet) 20 meq PO DAILY [facility] Last Admin: 09/21/24 09:49 Dose: 20 meq Documented By: MAX Sodium Chloride (0.9 % Sodium Chloride Flush 3 Ml Syringe) 3 ml IVFLUSH QSHIFT [facility] Last Admin: 09/21/24 09:47 Dose: 3 ml Documented By: MAX Trazodone HCl (Trazodone Hcl 25 Mg Halftab) 12.5 mg PO BID [facility] Last Admin: 09/21/24 09:47 Dose: 12.5 mg Documented By: MAX Labs 09/20/24 07:55 09/21/24 11:28 Labs: Laboratory Results - last 24 hr 09/21/24 11:28 Anion Gap 12 Estim Creat Clear Calc 26.4 Estimated GFR 34 Random Glucose 122 H Calcium 10.6 H D Assessment and Plan (1) Metabolic acidosis: Status: Acute (2) Diarrhea: Status: Acute Plan Pt is a 78-year-old female with a PMH significant for?multiple myeloma, chronic diarrhea, HTN, hypothyroidism, CKD 3, GERD, and mood disorder who presents to the ED with?generalized weakness, anorexia, and worsening diarrhea x1 week. Pt will be admitted to the hospital under observation for treatment and further evaluation of metabolic acidosis, hypocaclemia, and hypomagnesemia in the setting of worsening acute on chronic diarrhea. Metabolic acidosis in the setting of worsening acute on chronic diarrhea possibly due to recent treatment with nitrofurantoin Pt with long-standing chronic diarrhea, worse x1 week Bicarb down to 11, but now 14 neg stool studies and c-diff Imodium prn if studies negative Follow BMP hyperkalemia 5.5 likely related to potassium supplement lokelma x1 MARII ? secondary to dehydration give 1 liter LR for now and recheck BMP this evening UA positive recent tx from UTI ucx pending Severe hypomagnesemia. Resolved Magnesium 0.9 at time of presentation s/p magnesium IV Follow Mag Hypocalcemia Calcium 6.8 at times presentation In setting of above Patient is supplemented with calcium gluconate Follow BMP Hypothyroidism Continue levothyroxine Multiple myeloma Continue home oxycodone, Revlimid GERD Hold PPI due to hypomagnesemia Mood disorder Continue fluoxetine Full Code Attending:?Dr. Dave DVT Prophylaxis: Immigreat Now Stroke Does the patient have a stroke diagnosis?: No VTE Prior VTE?: No VTE Risk Level:: Medical - moderate - high VTE Device Contraindication: Treatment Not Indicated VTE Drug Contraindication: N/A - Med Ordered
[2024-09-21 12:49] LABS: Venous Blood Gas Refer to POC result
[2024-09-21 12:50] LABS: VBG Base Excess -11.8 mmol/L; VBG HCO3 12 mmol/L (22-26); VBG pCO2 25 mmHg; VBG pO2 83 mmHg
[2024-09-21] MEDS: Lactated Ringers 1,000 ML 80 ML IVCONT (13:43)
--- NOTE | 2024-09-21 14:19 | MHC.CM.PN ---
Pt was changed from obs to inpatient, IMM given 09/21 with motor vehicle parts interpreter's assistance.
--- NOTE | 2024-09-21 16:14 | MHC.CM.PN ---
PT evaluated pt and recommend [facility]. This CM met with pt with the assistance of a intellectual property lawyer to discuss. Pt states she would like to go to [facility]. Pt does not have a preference in facility, but is agreeable to [facility] referrals being placed in [place]. CM will await bed a bed offer, then review with pt.
--- NOTE | 2024-09-21 17:33 | HO.WOUND ---
Wound Consult: Initial 78yr old? female admitted [place] [facility] [place] - See progress notes and H&P for detailed history.? Wound consult placed for Right Buttock wound POA.? Patient agreeable to assessment and photo documentation.? Right Buttock Etiology: ?Stage 3 Pressure Injury ?Present on Admission Measurements: 4cm x3cm x 0.2cm Wound Bed: full thickness tissue loss - pale pink moist wound bed with granulation buds noted Drainage / Odor: serosang drainage noted -no odor Edges: ? irregular but remains well defined Mireille wound: MASD - Mirrored red pink blanchable erythema - ? No Induration, Fluctuance or Warmth noted Pain: pain reported Goals of Treatment: ? Triad and foam dressing to allow for continued moist wound healing and protect from friction and moisture Recommendations: 1. Turn and Reposition every 2 hours and as needed for patient comfort.? Use pillows or wedges to support off loading positions. 2. Off Load all bony prominences with use of pillows and heel boots if needed.? Apply Preventative foams where needed. ? 3. Monitor for incontinence and moisture control, use barrier creams when needed for prevention and treatment. 4. Provide adequate and supplemental nutrition.? 5. Order low air loss mattress. 6. When applicable maintain blood glucose levels per Providers order. 7. Right Buttock - Discontinue Brief Use. Off Load Pressure? - Cleanse with PH balance spray or wipes, pat dry. ?Apply thin layer of Triad to wound bed. Do not remove all of paste between applications as this may cause further skin damage.? Cover with foam dressing to aid in off loading and protection from friction. Change every 5 days and PRN. If unable to keep foam dressing in place given location. May use Triad alone twice daily and PRN after episodes of incontinence. Re-consult wound care Nurse for wound deterioration or wound changes.
[2024-09-21] MEDS: Enoxaparin Sodium 30 MG/0.3 ML SYRINGE SUBCUT (20:57)
[2024-09-21] MEDS: Mirtazapine 30 MG TABLET PO (20:57)
[2024-09-22] MEDS: Loperamide HCl 2 MG CAPSULE PO (00:09)
[2024-09-22] MEDS: Lactated Ringers 1,000 ML 80 ML IVCONT (01:25)
[2024-09-22 04:00] VITALS: BP 155/72; PULSE 74; RESP 16; TEMP 36.5; O2SAT 97
[2024-09-22] MEDS: Levothyroxine Sodium 75 MCG TABLET PO (06:04)
[2024-09-22 06:59] LABS: Hematocrit 30.3 % (37.0-47.0); Hemoglobin 9.6 g/dl (12.0-16.0); Mean Corpuscular HGB Conc 31.7 g/dl (31.0-35.0); Mean Corpuscular Hemoglobin 26.7 pg (27.0-33.0); Mean Corpuscular Volume 84.4 fL (80.0-98.0); Mean Platelet Volume 11.1 fL (9.4-12.3); Platelet Count 435 X10*3/uL (160-400); Red Blood Count 3.59 X10*6/uL (4.20-5.50); Red Cell Distribution Width 14.5 % (11.0-16.0); White Blood Count 9.7 X10*3/uL (4.8-10.8)
[2024-09-22 07:26] LABS: Anion Gap 12 (12-20); Blood Urea Nitrogen 28 mg/dL (9-16); Calcium 9.6 mg/dL (8.4-10.2); Carbon Dioxide 13 mmol/L (22-29); Chloride 117 mmol/L (96-108); Creatinine Clr Calc Pharmacy 30.3; Estimated Glomerular Filt Rate 40; Glucose Random 107 mg/dL (60-115); Potassium 5.1 mmol/L (3.3-5.1); Sodium 137 mmol/L (135-145)
[2024-09-22 07:37] VITALS: BP 127/76; PULSE 67; RESP 18; TEMP 37.2; O2SAT 97
[2024-09-22] MEDS: traZODone HCL 25 MG HALFTAB 12.5 MG PO ×2 (09:09→19:53)
[2024-09-22] MEDS: FLUoxetine HCl 20 MG CAPSULE 40 MG PO (09:09)
[2024-09-22] MEDS: Aspirin 81 MG TAB.CHEW PO (09:10)
--- NOTE | 2024-09-22 11:51 | HO.PM.IMPN ---
Subjective Subjective Date of Service: 09/22/24 Review of Systems Follow up diarrhea hypomag resolved feeling better Physical Exam Vital Signs: Vital Signs: Last Vital Signs Temp 98.9 F 09/22/24 07:37 Pulse 67 09/22/24 07:37 Resp 18 09/22/24 07:37 BP 127/76 09/22/24 07:37 Pulse Ox 97 09/22/24 07:37 O2 Del Method Room Air 09/22/24 07:37 BMI result Body Mass Index 24.7 Appearing in no acute distress lung sounds are clear to auscultation heart regular rate rhythm, clear S1, S2 positive bowel sounds, abdomen is soft, nontender neuro patient is alert x3, no focal deficits Objective Data Active Medications Acetaminophen (Acetaminophen 325 Mg Tablet) 650 mg PO Q6H PRN PRN Reason: Pain, Mild (Pain Scale 1-3), fever or headache Last Admin: 09/19/24 21:47 Dose: 650 mg Documented By: STEFANY Aspirin (Aspirin 81 Mg Tab.Chew) 81 mg PO DAILY [facility] Last Admin: 09/22/24 09:10 Dose: 81 mg Documented By: MAX Calcium Carbonate (Calcium Carbonate 750 Mg Tab.Chew) 750 mg PO Q4H PRN PRN Reason: Heartburn Enoxaparin Sodium (Enoxaparin Sodium 30 Mg/0.3 Ml Syringe) 30 mg SUBCUT Q24H [facility] Last Admin: 09/21/24 20:57 Dose: 30 mg Documented By: CIRILO Fluoxetine HCl (Fluoxetine Hcl 20 Mg Capsule) 40 mg PO DAILY [facility] Last Admin: 09/22/24 09:09 Dose: 40 mg Documented By: MAX Lactated Ringer's (Lr) 1,000 mls @ 80 mls/hr IVCONT .[id number] [facility] Last Admin: 09/22/24 01:25 Dose: 80 mls/hr Documented By: CIRILO Levothyroxine Sodium (Levothyroxine Sodium 75 Mcg Tablet) 75 mcg PO DAILY@0630 [facility] Last Admin: 09/22/24 06:04 Dose: 75 mcg Documented By: CIRILO Loperamide HCl (Loperamide Hcl 2 Mg Capsule) 2 mg PO Q4H PRN PRN Reason: Diarrhea Last Admin: 09/22/24 00:09 Dose: 2 mg Documented By: CIRILO Magnesium Hydroxide (Milk Of Magnesia 30 Ml Oral.Susp) 30 ml PO DAILY PRN PRN Reason: Constipation Melatonin (Melatonin 3 Mg Tablet) 6 mg PO BEDTIME PRN PRN Reason: Insomnia Last Admin: 09/19/24 21:47 Dose: 6 mg Documented By: STEFANY Mirtazapine (Mirtazapine 30 Mg Tablet) 30 mg PO BEDTIME [facility] Last Admin: 09/21/24 20:57 Dose: 30 mg Documented By: CIRILO Non-Formulary Medication (Lenalidomide [Revlimid]) 10 mg PO DAILY [facility] Ondansetron HCl (Ondansetron Hcl 4 Mg/2 Ml Vial) 4 mg IVPUSH Q8H PRN PRN Reason: Nausea and Vomiting Sodium Chloride (0.9 % Sodium Chloride Flush 3 Ml Syringe) 3 ml IVFLUSH QSHIFT [facility] Last Admin: 09/22/24 07:34 Dose: Not Given Documented By: MAX Non-Admin Reason: IV Running Trazodone HCl (Trazodone Hcl 25 Mg Halftab) 12.5 mg PO BID [facility] Last Admin: 09/22/24 09:09 Dose: 12.5 mg Documented By: MAX Labs 09/22/24 05:15 09/22/24 05:15 Labs: Laboratory Results - last 24 hr 09/21/24 09/21/24 09/21/24 11:28 12:46 17:09 MCV MCH MCHC RDW Plt Count MPV Absolute Nucleated RBC Nucleated RBC % (auto) Hold Purple Top SEE NOTE VBG pH 7.30 L VBG pCO2 25 VBG pO2 83 VBG HCO3 12 L VBG O2 Saturation 94.0 VBG Base Excess -11.8 Anion Gap 12 Estim Creat Clear Calc 26.4 Estimated GFR 34 Random Glucose 122 H Calcium 10.6 H D Hold Yellow Top See Note 09/22/24 05:15 MCV 84.4 MCH 26.7 L MCHC 31.7 RDW 14.5 Plt Count 435 H MPV 11.1 Absolute Nucleated RBC 0.000 Nucleated RBC % (auto) 0.0 Hold Purple Top VBG pH VBG pCO2 VBG pO2 VBG HCO3 VBG O2 Saturation VBG Base Excess Anion Gap 12 Estim Creat Clear Calc 30.3 Estimated GFR 40 Random Glucose 107 Calcium 9.6 D Hold Yellow Top Microbiology Microbiology Results: Microbiology 09/20/24 Unknown Urine Culture - Preliminary Urine clean catch - Clean Catch Midstream Gram negative leopoldo Assessment and Plan (1) Metabolic acidosis: Status: Acute (2) Diarrhea: Status: Acute Plan Pt is a 78-year-old female with a PMH significant for?multiple myeloma, chronic diarrhea, HTN, hypothyroidism, CKD 3, GERD, and mood disorder who presents to the ED with?generalized weakness, anorexia, and worsening diarrhea x1 week. Pt will be admitted to the hospital under observation for treatment and further evaluation of metabolic acidosis, hypocaclemia, and hypomagnesemia in the setting of worsening acute on chronic diarrhea. Metabolic acidosis in the setting of worsening acute on chronic diarrhea. Resolved possibly due to recent treatment with nitrofurantoin Pt with long-standing chronic diarrhea, worse x1 week Bicarb down to 11, but now 14 neg stool studies and c-diff Imodium prn Follow BMP hyperkalemia . Resolved 5.1 likely related to potassium supplement lokelma x1 MARII. Trending down Likely secondary to dehydration s/p 1 liter LR UA positive, GNR recent tx for UTI with nitrofurantoin Discussed case with Infectious Disease provider, recommended not treating due to the patient being asymptomatic but follow final urine culture ucx pending Severe hypomagnesemia. Resolved Magnesium 0.9 at time of presentation s/p magnesium IV Follow Mag Hypocalcemia. Resolved Calcium 6.8 at times presentation In setting of above Patient is supplemented with calcium gluconate Follow BMP Hypothyroidism Continue levothyroxine Multiple myeloma Continue home oxycodone, Revlimid Mood disorder Continue fluoxetine Full Code Attending:?Dr. Dave DVT Prophylaxis: Lovenox Disposition. We will need short-term rehab, needs 3 qualifying days stay Quality Stroke Does the patient have a stroke diagnosis?: No VTE Prior VTE?: No VTE Risk Level:: Medical - moderate - high VTE Device Contraindication: Treatment Not Indicated VTE Drug Contraindication: N/A - Med Ordered
[2024-09-22 11:58] VITALS: BP 134/63; PULSE 60; RESP 16; TEMP 37; O2SAT 98
[2024-09-22 14:59] VITALS: BP 148/70; PULSE 57; RESP 16; TEMP 36.5; O2SAT 98
[2024-09-22] MEDS: 0.9 % Sodium Chloride Flush 3 ML SYRINGE IVFLUSH ×2 (15:41→19:54)
[2024-09-22 19:18] VITALS: BP 131/63; PULSE 61; RESP 14; TEMP 35.9; O2SAT 99
[2024-09-22] MEDS: Mirtazapine 30 MG TABLET PO (19:53)
--- NOTE | 2024-09-22 21:41 | W.PM.IDCN ---
History of Present Illness Data of Consult Service Date: 09/21/24 Requesting physician: Kayla Hartmann Primary Care Provider: MD ANOOP Perez Reason for consult: possible urine or diarrheal infection She presents with some diarrhea,watery and no blood over last day. She has been on Macrobid for seven days. She is off antibiotics now. She has no specific symptoms related to urinary tract. Review of Systems Review of Systems: Yes all other systems are reviewed and are negative PMFSH Past Medical History Medical History Chronic diarrhea Multiple myeloma Tubulovillous adenoma Depression H/O gastroesophageal reflux (GERD) Hx of multiple myeloma Hypothyroidism Family History Family History Daughter Diabetes Thyroid cancer Family history: reviewed and not pertinent Surgical History Surgical History H/O tooth extraction History of bone marrow biopsy History of cholecystectomy Social History Social History Household Members: Family Household Members Other:: adult son Housing: Apartment Are you a primary caretaker resort to a significant other at home: No Do you presently have visiting nurse or other home services: Yes Alcohol intake: never Comment: 1:[address] until 23:00 due to staffing constraints Patient Tobacco Use Status: Former Tobacco user Tobacco use type: Cigarette Years Smoked: 20 Smoked in Last 30 Days: No e-Cigarette/Vaping Use: Never Used Second Hand Smoke Exposure: No Use of substances other than those prescribed or required for medical reasons: No Substance Use Type: Marijuana Currently Displaying Signs/Symptoms of Drug Intoxication Withdrawal: No Advance Directives: Yes Advance Directives on File: Yes Advance Directives Date on File: 03/15/21 service: No Current occupational status: unemployed Meds Allergies Allergy/AdvReac Type Severity Reaction Status Date / Time No Known Allergies Allergy Verified 09/18/24 13:18 [No Known Allergies*] Active Medications: Current Medications Acetaminophen (Acetaminophen 325 Mg Tablet) 650 mg PO Q6H PRN PRN Reason: Pain, Mild (Pain Scale 1-3), fever or headache Last Admin: 09/19/24 21:47 Dose: 650 mg Aspirin (Aspirin 81 Mg Tab.Chew) 81 mg PO DAILY [facility] Last Admin: 09/22/24 09:10 Dose: 81 mg Calcium Carbonate (Calcium Carbonate 750 Mg Tab.Chew) 750 mg PO Q4H PRN PRN Reason: Heartburn Enoxaparin Sodium (Enoxaparin Sodium 30 Mg/0.3 Ml Syringe) 30 mg SUBCUT Q24H [facility] Last Admin: 09/21/24 20:57 Dose: 30 mg Fluoxetine HCl (Fluoxetine Hcl 20 Mg Capsule) 40 mg PO DAILY [facility] Last Admin: 09/22/24 09:09 Dose: 40 mg Levothyroxine Sodium (Levothyroxine Sodium 75 Mcg Tablet) 75 mcg PO DAILY@0630 [facility] Last Admin: 09/22/24 06:04 Dose: 75 mcg Loperamide HCl (Loperamide Hcl 2 Mg Capsule) 2 mg PO Q4H PRN PRN Reason: Diarrhea Last Admin: 09/22/24 00:09 Dose: 2 mg Magnesium Hydroxide (Milk Of Magnesia 30 Ml Oral.Susp) 30 ml PO DAILY PRN PRN Reason: Constipation Melatonin (Melatonin 3 Mg Tablet) 6 mg PO BEDTIME PRN PRN Reason: Insomnia Last Admin: 09/19/24 21:47 Dose: 6 mg Mirtazapine (Mirtazapine 30 Mg Tablet) 30 mg PO BEDTIME [facility] Last Admin: 09/22/24 19:53 Dose: 30 mg Non-Formulary Medication (Lenalidomide [Revlimid]) 10 mg PO DAILY [facility] Ondansetron HCl (Ondansetron Hcl 4 Mg/2 Ml Vial) 4 mg IVPUSH Q8H PRN PRN Reason: Nausea and Vomiting Sodium Chloride (0.9 % Sodium Chloride Flush 3 Ml Syringe) 3 ml IVFLUSH QSHIFT [facility] Last Admin: 09/22/24 19:54 Dose: 3 ml Trazodone HCl (Trazodone Hcl 25 Mg Halftab) 12.5 mg PO BID [facility] Last Admin: 09/22/24 19:53 Dose: 12.5 mg Home Medications ?Medication ?Instructions ?Recorded ?Confirmed ?Last Taken ?Type levothyroxine 75 mcg tablet 75 mcg PO DAILY 10/27/20 09/18/24 09/17/24 History aspirin 81 mg chewable tablet 81 mg PO DAILY 12/16/20 09/18/24 09/17/24 History mirtazapine 30 mg tablet 30 mg PO BEDTIME 12/16/20 09/18/24 09/17/24 History fluoxetine 40 mg capsule 1 cap PO DAILY 05/12/22 09/18/24 09/17/24 History loperamide 2 mg tablet 2 mg PO Q4H PRN Loose Stool 02/25/24 09/18/24 Unknown History trazodone 50 mg tablet 12.5 mg PO BID 09/18/24 09/18/24 09/17/24 History Physical Exam Vital Signs: Vital Signs: Last Vital Signs Temp 96.7 F L 09/22/24 19:18 Pulse 61 09/22/24 19:18 Resp 14 09/22/24 19:18 BP 131/63 09/22/24 19:18 Pulse Ox 99 09/22/24 19:18 O2 Del Method Room Air 09/22/24 19:18 BMI result Body Mass Index 24.7 Const: General: cooperative HEENT: Head: Yes normal to inspection Face and sinus: Yes normal facial exam Mouth: Normal oral and palatal mucosa present Teeth and gingiva: dentition normal Eyes: General: appearance normal, both eyes and all related structures Pupils: Equal, round and reactive pupils present Resp: Effort & Inspection: normal respiratory effort Cardio: Rate: regular rate Rhythm: regular rhythm GI: Palpation (GI): Soft to palpation and nontender : General: Yes no CVA tenderness Back/Spine/Pelvis: Back: no CVA tenderness Skin: General skin exam: no rashes or lesions noted Neuro: General: moves all extremities Cranial nerves: Yes Equal, round and reactive pupils present Extrem: General: Yes normal to inspection Psych: Appearance: grossly normal Results Labs 09/22/24 05:15 09/22/24 05:15 Labs: Short CBC 09/22/24 Range/Units 05:15 WBC 9.7 (4.8-10.8) X10*3/uL Hgb 9.6 L (12.0-16.0) g/dl Hct 30.3 L (37.0-47.0) % Plt Count 435 H (160-400) X10*3/uL BMP 09/22/24 05:15 Sodium 137 Potassium 5.1 Chloride 117 H Carbon Dioxide 13 L BUN 28 H Creatinine 1.30 Calcium 9.6 D Microbiology Microbiology Results: Microbiology 09/21/24 17:09 Blood - Venous Blood Culture - Preliminary No growth after 24 hours. 09/21/24 17:09 Blood - Venous Blood Culture - Preliminary No growth after 24 hours. 09/20/24 Unknown Urine clean catch - Clean Catch Midstream Urine Culture - Preliminary Gram negative leopoldo Assessment and Plan (1) Metabolic acidosis: Status: Acute (2) Diarrhea: Status: Acute Plan There is no fever or signs of urinary infection or infectious diarrhea. Would hold antibiotics for now.
[2024-09-22] MEDS: Enoxaparin Sodium 30 MG/0.3 ML SYRINGE SUBCUT (22:46)
[2024-09-23] VITALS: BP 160/74; PULSE 68; RESP 16; TEMP 36.5; O2SAT 97
[2024-09-23 03:08] VITALS: BP 132/87; PULSE 75; RESP 18; TEMP 36.3; O2SAT 97
[2024-09-23] MEDS: Levothyroxine Sodium 75 MCG TABLET PO (06:25)
[2024-09-23 07:28] VITALS: BP 126/60; PULSE 69; RESP 16; TEMP 36.1; O2SAT 97
[2024-09-23] MEDS: Aspirin 81 MG TAB.CHEW PO (09:16)
[2024-09-23] MEDS: Sodium Bicarbonate 650 MG TABLET PO ×3 (09:16→19:43)
[2024-09-23] MEDS: FLUoxetine HCl 20 MG CAPSULE 40 MG PO (09:16)
[2024-09-23] MEDS: 0.9 % Sodium Chloride Flush 3 ML SYRINGE IVFLUSH ×3 (09:17→19:47)
[2024-09-23] MEDS: traZODone HCL 25 MG HALFTAB 12.5 MG PO ×2 (09:17→19:43)
--- NOTE | 2024-09-23 10:18 | MHC.CLN ---
NUTRITION DIET=REGULAR. STAGE III PI TO RIGHT BUTTOCK. INTAKE VARIABLE, 0-50%. ADDING ENSURE BID TO PROMOTE NUTRITIONAL INTAKE AND WOUND HEALING. SUPPLEMENT PROVIDES 700 KCALS, 40 G PROTEIN. FOLLOW FOR PO INTAKE AND SKIN INTEGRITY.
--- NOTE | 2024-09-23 11:06 | MHC.CM.PN ---
Addendum entered by Georgie Colorado RN 09/23/24 11:08: *REVLIMID Original Note: PATIENT NOT CLEARED FOR DC AT THIS TIME. PLAN FOR STR TOMORROW 09/24. PATIENT ACCEPTED BED @ [facility] AND WILL BE TRANSPORTED VIA BLS AT NOON 09/24. IMM DELIVERED. PATIENT WILL BRING REMLIVID, PER SNF REQUEST.
[2024-09-23 11:13] LABS: MANUAL DIFF FLAG NO
[2024-09-23 11:15] LABS: Basophils Absolute Auto 0.2 X10*3/uL (0.0-0.2); Basophils Percent Auto 1.6 % (0-2); Eosinophils Absolute Auto 0.1 X10*3/uL (0.0-0.4); Eosinophils Percent Auto 1.3 % (0-4); Hematocrit 29.5 % (37.0-47.0); Hemoglobin 9.5 g/dl (12.0-16.0); Imm Gran Abs Auto 0.14 X10*3/uL (0.00-0.03); Imm Gran Pct Auto 1.5 % (0.0-0.4); Lymphocytes Percent Auto 22.1 % (20-40); Mean Corpuscular HGB Conc 32.2 g/dl (31.0-35.0); Mean Corpuscular Hemoglobin 27.1 pg (27.0-33.0); Mean Corpuscular Volume 84.3 fL (80.0-98.0); Mean Platelet Volume 10.8 fL (9.4-12.3); Monocytes Absolute Auto 0.6 X10*3/uL (0.1-1.2); Monocytes Percent Auto 6.6 % (2-11); Neutrophils Absolute Auto 6.1 x10*3/uL (2.0-8.3); Neutrophils Percent Auto 66.9 % (45-73); Platelet Count 384 X10*3/uL (160-400); Red Cell Distribution Width 14.6 % (11.0-16.0); White Blood Count 9.2 X10*3/uL (4.8-10.8)
[2024-09-23 11:24] VITALS: BP 142/79; PULSE 63; RESP 16; TEMP 36.3; O2SAT 98
[2024-09-23 11:38] LABS: Alanine Aminotransferase 16 U/L (0-31); Albumin Level 3.2 g/dL (3.5-5.0); Alkaline Phosphatase 151 U/L (39-117); Anion Gap 12 (12-20); Aspartate Amino Transferase 17 U/L (5-31); Bilirubin Total 0.2 mg/dL (0.0-1.0); Blood Urea Nitrogen 33 mg/dL (9-16); Calcium 8.6 mg/dL (8.4-10.2); Carbon Dioxide 16 mmol/L (22-29); Chloride 114 mmol/L (96-108); Creatinine Clr Calc Pharmacy 36.8; Estimated Glomerular Filt Rate 49; Glucose Fasting 115 mg/dL (60-99); Potassium 4.9 mmol/L (3.3-5.1); Sodium 137 mmol/L (135-145); Total Protein 7.7 g/dL (6.5-8.0)
--- NOTE | 2024-09-23 11:42 | P.PNIM_ITS ---
Subjective Subjective Date of Service: 09/23/24 Interval History: No acute issues overnight. Mild confusion Review of Systems Denies chest pain Denies shortness of breath Denies nausea diarrhea Denies fever chills Physical Exam 2 Vital Signs: Vital Signs: Last Vital Signs Temp 97.3 F 09/23/24 11:24 Pulse 63 09/23/24 11:24 Resp 16 09/23/24 11:24 BP 142/79 H 09/23/24 11:24 Pulse Ox 98 09/23/24 11:24 O2 Del Method Room Air 09/23/24 11:24 BMI result Body Mass Index 24.7 Const: Other: Awake alert no acute distress Resp: Other: Clear to auscultation bilaterally no rales rhonchi or wheezes Cardio: Other: No S4; positive S1-S2; no S3 murmurs rubs or gallops GI: Other: Soft nontender nondistended normoactive bowel sounds Neuro: Other: Cranial nerves 2-12 grossly intact as tested. Motor is 5/5 all extremities. Sensation is intact. Gait not observed Extrem: Other: No edema bilaterally Objective Data Active Medications Acetaminophen (Acetaminophen 325 Mg Tablet) 650 mg PO Q6H PRN PRN Reason: Pain, Mild (Pain Scale 1-3), fever or headache Last Admin: 09/19/24 21:47 Dose: 650 mg Documented By: STEFANY Aspirin (Aspirin 81 Mg Tab.Chew) 81 mg PO DAILY [facility] Last Admin: 09/23/24 09:16 Dose: 81 mg Documented By: KRISTI Calcium Carbonate (Calcium Carbonate 750 Mg Tab.Chew) 750 mg PO Q4H PRN PRN Reason: Heartburn Enoxaparin Sodium (Enoxaparin Sodium 30 Mg/0.3 Ml Syringe) 30 mg SUBCUT Q24H [facility] Last Admin: 09/22/24 22:46 Dose: 30 mg Documented By: CHARITY Fluoxetine HCl (Fluoxetine Hcl 20 Mg Capsule) 40 mg PO DAILY [facility] Last Admin: 09/23/24 09:16 Dose: 40 mg Documented By: KRISTI Levothyroxine Sodium (Levothyroxine Sodium 75 Mcg Tablet) 75 mcg PO DAILY@0630 [facility] Last Admin: 09/23/24 06:25 Dose: 75 mcg Documented By: CHARITY Loperamide HCl (Loperamide Hcl 2 Mg Capsule) 2 mg PO Q4H PRN PRN Reason: Diarrhea Last Admin: 09/22/24 00:09 Dose: 2 mg Documented By: CIRILO Magnesium Hydroxide (Milk Of Magnesia 30 Ml Oral.Susp) 30 ml PO DAILY PRN PRN Reason: Constipation Melatonin (Melatonin 3 Mg Tablet) 6 mg PO BEDTIME PRN PRN Reason: Insomnia Last Admin: 09/19/24 21:47 Dose: 6 mg Documented By: STEFANY Mirtazapine (Mirtazapine 30 Mg Tablet) 30 mg PO BEDTIME [facility] Last Admin: 09/22/24 19:53 Dose: 30 mg Documented By: CHARITY Non-Formulary Medication (Lenalidomide [Revlimid]) 10 mg PO DAILY [facility] Ondansetron HCl (Ondansetron Hcl 4 Mg/2 Ml Vial) 4 mg IVPUSH Q8H PRN PRN Reason: Nausea and Vomiting Sodium Bicarbonate (Sodium Bicarbonate 650 Mg Tablet) 650 mg PO TID [facility] Last Admin: 09/23/24 09:16 Dose: 650 mg Documented By: KRISTI Sodium Chloride (0.9 % Sodium Chloride Flush 3 Ml Syringe) 3 ml IVFLUSH QSHIFT [facility] Last Admin: 09/23/24 09:17 Dose: 3 ml Documented By: KRISTI Trazodone HCl (Trazodone Hcl 25 Mg Halftab) 12.5 mg PO BID [facility] Last Admin: 09/23/24 09:17 Dose: 12.5 mg Documented By: KRISTI Labs 09/23/24 10:44 09/23/24 10:44 Labs: Laboratory Results - last 24 hr 09/23/24 10:44 MCV 84.3 MCH 27.1 MCHC 32.2 RDW 14.6 Plt Count 384 MPV 10.8 Immature Gran % (Auto) 1.5 H Neut % (Auto) 66.9 Lymph % (Auto) 22.1 [place] % (Auto) 6.6 Eos % (Auto) 1.3 Baso % (Auto) 1.6 Lymph # (Auto) 2.0 [place] # (Auto) 0.6 Eos # (Auto) 0.1 Baso # (Auto) 0.2 Abs Immat Gran (auto) 0.14 H Absolute Neuts (auto) 6.1 Absolute Nucleated RBC 0.000 Nucleated RBC % (auto) 0.0 Anion Gap 12 Estim Creat Clear Calc 36.8 Estimated GFR 49 Fasting Glucose 115 H Calcium 8.6 D Total Bilirubin 0.2 AST 17 ALT 16 Alkaline Phosphatase 151 H Total Protein 7.7 Albumin 3.2 L Microbiology Microbiology Results: Microbiology 09/20/24 Unknown Urine Culture - Final Urine clean catch - Clean Catch Midstream Escherichia coli 09/21/24 17:09 Blood Culture - Preliminary Blood - Venous No growth after 24 hours. 09/21/24 17:09 Blood Culture - Preliminary Blood - Venous No growth after 24 hours. Assessment and Plan (1) Metabolic acidosis: Status: Acute (2) Diarrhea: Status: Acute (3) Multiple myeloma: Status: Acute Plan Pt is a 78-year-old female with a PMH significant for?multiple myeloma, chronic diarrhea, HTN, hypothyroidism, CKD 3, GERD, and mood disorder who presents to the ED with?generalized weakness, anorexia, and worsening diarrhea x1 week. Pt will be admitted to the hospital under observation for treatment and further evaluation of metabolic acidosis, hypocaclemia, and hypomagnesemia in the setting of worsening acute on chronic diarrhea. 1.Metabolic acidosis (dirrhea resolved) -will add sodium bicarb 650 t.i.d. -follow renals/divalents 2.MARII. -responded to volume repletion -labs as above 3. E coli culture positive -discuss with ID; patient remains afebrile without white count -hold antibiotics at this time 4. Hypocalcemia/hypomagnesemia -resolved -follow up clinically 5.Hypothyroidism -continue levothyroxine 6.Multiple myeloma -stable and well compensated -continue outpatient therapies Full Code Lovenox Disposition. We will need short-term rehab, needs 3 qualifying days stay Quality Stroke Does the patient have a stroke diagnosis?: No VTE Prior VTE?: No VTE Risk Level:: Medical - moderate - high VTE Device Contraindication: Treatment Not Indicated VTE Drug Contraindication: N/A - Med Ordered
[2024-09-23 15:22] VITALS: BP 135/65; PULSE 68; RESP 16; TEMP 36.2; O2SAT 98
[2024-09-23 18:58] VITALS: BP 145/64; PULSE 74; RESP 16; TEMP 36.6; O2SAT 99
[2024-09-23] MEDS: Mirtazapine 30 MG TABLET PO (19:43)
[2024-09-23] MEDS: Enoxaparin Sodium 30 MG/0.3 ML SYRINGE SUBCUT (22:43)
[2024-09-24] VITALS: BP 120/60; PULSE 69; RESP 18; TEMP 36.7; O2SAT 96
[2024-09-24] MEDS: Loperamide HCl 2 MG CAPSULE PO (01:58)
[2024-09-24 03:45] VITALS: BP 134/75; PULSE 69; RESP 18; TEMP 36.7; O2SAT 97
[2024-09-24] MEDS: Levothyroxine Sodium 75 MCG TABLET PO (05:47)
[2024-09-24 06:49] LABS: MANUAL DIFF FLAG NO
[2024-09-24 07:13] LABS: Basophils Absolute Auto 0.2 X10*3/uL (0.0-0.2); Basophils Percent Auto 1.8 % (0-2); Eosinophils Absolute Auto 0.1 X10*3/uL (0.0-0.4); Eosinophils Percent Auto 1.1 % (0-4); Hematocrit 31.7 % (37.0-47.0); Hemoglobin 10.2 g/dl (12.0-16.0); Lymphocytes Absolute Auto 2.8 X10*3/uL (1.2-4.9); Lymphocytes Percent Auto 28.2 % (20-40); Mean Corpuscular HGB Conc 32.2 g/dl (31.0-35.0); Mean Corpuscular Hemoglobin 27.1 pg (27.0-33.0); Mean Corpuscular Volume 84.1 fL (80.0-98.0); Mean Platelet Volume 11.1 fL (9.4-12.3); Monocytes Absolute Auto 0.6 X10*3/uL (0.1-1.2); Monocytes Percent Auto 5.9 % (2-11); Neutrophils Absolute Auto 6.1 x10*3/uL (2.0-8.3); Platelet Count 394 X10*3/uL (160-400); Red Blood Count 3.77 X10*6/uL (4.20-5.50); Red Cell Distribution Width 14.8 % (11.0-16.0)
[2024-09-24 07:47] VITALS: BP 127/66; PULSE 67; RESP 18; TEMP 36.7; O2SAT 97
[2024-09-24 08:02] LABS: Alanine Aminotransferase 16 U/L (0-31); Albumin Level 3.3 g/dL (3.5-5.0); Alkaline Phosphatase 150 U/L (39-117); Anion Gap 15 (12-20); Aspartate Amino Transferase 24 U/L (5-31); Bilirubin Total 0.2 mg/dL (0.0-1.0); Blood Urea Nitrogen 42 mg/dL (9-16); Calcium 8.7 mg/dL (8.4-10.2); Carbon Dioxide 13 mmol/L (22-29); Chloride 114 mmol/L (96-108); Creatinine Clr Calc Pharmacy 34.5; Estimated Glomerular Filt Rate 46; Glucose Fasting 95 mg/dL (60-99); Potassium 4.5 mmol/L (3.3-5.1); Sodium 137 mmol/L (135-145)
[2024-09-24 08:10] LABS: Magnesium 1.4 mg/dL (1.6-2.6)
[2024-09-24] MEDS: traZODone HCL 25 MG HALFTAB 12.5 MG PO (09:33)
[2024-09-24] MEDS: 0.9 % Sodium Chloride Flush 3 ML SYRINGE IVFLUSH (09:33)
[2024-09-24] MEDS: Sodium Bicarbonate 650 MG TABLET PO (09:33)
[2024-09-24] MEDS: Aspirin 81 MG TAB.CHEW PO (09:34)
[2024-09-24] MEDS: FLUoxetine HCl 20 MG CAPSULE 40 MG PO (09:35)
--- NOTE | 2024-09-24 10:47 | MHC.CM.PN ---
Per MD, patient medically cleared for dc to [facility]. S transport to [place] at 12pm. Patient, RN, DO, and granddaughter aware. CM spoke w/ granddaughter who will bring requested medication to SNF. IMM delivered.
--- NOTE | 2024-09-24 11:01 | PM.DS ---
DS: Providers Provider Date of Service: 09/24/24 Date of admission: 09/21/24 11:00 Date of discharge: 09/24/24 Primary care physician: Erika Morris MD Consults: 09/19/24 13:36 Consult to Wound Care Routine Reason for consultation: Right buttock. 09/21/24 08:09 Consult to Infectious Diseases Routine Consulting Provider: [facility] Reason for consultation: recurrent uti, ecoli, esbl DS: Diagnosis Discharge Diagnosis (1) Metabolic acidosis: Status: Acute (2) Diarrhea: Status: Acute (3) Multiple myeloma: Status: Acute DS: Summary Hospital Course Hospital Course: 78-year-old female with a PMH significant for?multiple myeloma, chronic diarrhea, HTN, hypothyroidism, CKD 3, GERD, and mood disorder who presents to the ED with?generalized weakness, anorexia, and worsening diarrhea x1 week. Patient also reports of experiencing lightheadedness and dizziness particularly with position changes. Yesterday family report patient fell onto her buttocks secondary to dizziness. No head strike. Recently finished a 5 day course of antibiotics for UTI. Patient denies fever, chills, nausea, vomiting. No abdominal pain. Denies chest pain/pressure, palpitations. No shortness a breath or difficulty breathing. In the ED pt's vitals stable in largely WNL. Labs were significant for bicarb 16, calcium 6.8, and magnesium 0.9. No leukocytosis. Stable H&H of 9.8/31.0, around baseline. Creatinine stable at 1.38. Mild stable transaminitis of ALT 35 and alk-phos 165. Tested negative for flu, RSV, and COVID. X-ray of lumbar spine negative for acute fracture or subluxation, but showed chronic multilevel lumbar spondylolysis. EKG demonstrated sinus bradycardia 57 with QTc of 492 with T-wave inversions in V1 and III. Pt was treated with acetaminophen, IVF, magnesium sulfate 2 g IV, and calcium gluconate. Pt will be admitted to the hospital under observation for treatment and further evaluation of metabolic acidosis, hypocaclemia, and hypomagnesemia in the setting of worsening acute on chronic diarrhea. Hospital Course Patient was admitted to general medical floor and divalent were repleted. Her magnesium and calcium remained stable. Her diarrhea was treated with p.r.n. loperamide and it did improve back to baseline. Given her chronic diarrhea, sodium bicarb 650 was added 3 times daily. Patient's urine grew out E coli however patient had recently being treated for same. A consult was placed infectious Disease who stated given the absence of a white count fever that she would not treat the UTI. At this point time patient is medically acceptable to transferred to fpc Time Attestation Discharge Coordination Time (in mins): 35 Quality: Safe Use of Opioids Does Pt have an Active Cancer Diagnosis on the Problem List?: Yes Opioid Measure Date for [facility] Report: 08/25/24 Opioid Measure Time for [facility] Report: 11:03 Quality: Stroke Does the patient have a stroke diagnosis?: No Physical Exam Vital Signs: Vital Signs: Last Vital Signs Temp 98.1 F 09/24/24 07:47 Pulse 67 09/24/24 07:47 Resp 18 09/24/24 07:47 BP 127/66 09/24/24 07:47 Pulse Ox 97 09/24/24 07:47 O2 Del Method Room Air 09/24/24 07:47 BMI result Body Mass Index 24.7 Const: Other: Awake alert no acute distress Resp: Other: Clear to auscultation bilaterally no rales rhonchi or wheezes Cardio: Other: No S4; positive S1-S2; no S3 murmurs rubs or gallops GI: Other: Soft nontender nondistended normoactive bowel sounds Neuro: Other: Cranial nerves 2-12 grossly intact as tested. Motor is 5/5 all extremities. Sensation is intact. Gait not observed Extrem: Other: No edema bilaterally DS: Data Data Completed and Pending Completed studies during hospitalization [Text1]: Procedures Insertion of Infusion Device into Superior Vena Cava, Percutaneous Approach (02/25/24) Transfusion of Nonautologous Red Blood Cells into Peripheral Vein, Percutaneous Approach (02/25/24) Ultrasonography of Superior Vena Cava, Guidance (02/25/24) Labs on day of discharge: Laboratory Results - last 24 hr 09/23/24 09/24/24 10:44 06:22 WBC 9.2 10.0 RBC 3.50 L 3.77 L Hgb 9.5 L 10.2 L Hct 29.5 L 31.7 L MCV 84.3 84.1 MCH 27.1 27.1 MCHC 32.2 32.2 RDW 14.6 14.8 Plt Count 384 394 MPV 10.8 11.1 Immature Gran % (Auto) 1.5 H 2.0 H Neut % (Auto) 66.9 61.0 Lymph % (Auto) 22.1 28.2 [place] % (Auto) 6.6 5.9 Eos % (Auto) 1.3 1.1 Baso % (Auto) 1.6 1.8 Lymph # (Auto) 2.0 2.8 [place] # (Auto) 0.6 0.6 Eos # (Auto) 0.1 0.1 Baso # (Auto) 0.2 0.2 Abs Immat Gran (auto) 0.14 H 0.20 H Absolute Neuts (auto) 6.1 6.1 Absolute Nucleated RBC 0.000 0.000 Nucleated RBC % (auto) 0.0 0.0 Sodium 137 137 Potassium 4.9 4.5 Chloride 114 H 114 H Carbon Dioxide 16 L 13 L Anion Gap 12 15 BUN 33 H 42 H Creatinine 1.07 1.14 Estim Creat Clear Calc 36.8 34.5 Estimated GFR 49 46 Fasting Glucose 115 H 95 Calcium 8.6 D 8.7 Magnesium 1.4 L* Total Bilirubin 0.2 0.2 AST 17 24 ALT 16 16 Alkaline Phosphatase 151 H 150 H Total Protein 7.7 8.0 Albumin 3.2 L 3.3 L Preliminary micro results at discharge 09/21/24 17:09 Blood Culture - Preliminary Blood - Venous No growth after 48 hours. 09/21/24 17:09 Blood Culture - Preliminary Blood - Venous No growth after 48 hours. Discharge Plan Discharge Anticipated Discharge Date/Time: 09/24/24 10:57 Patient Disposition: Xfer SNF Discharge Diagnosis: Metabolic acidosis Referrals: [facility] [Outside] - 1 Day (short term rehab) Erika Morris MD [Primary Care Provider] - 1 Week Discharge Medications: New sodium bicarbonate 650 mg Tablet 650 mg PO TID Qty: 90 0RF magnesium oxide 250 mg magnesium tablet 250 mg PO BID Qty: 60 0RF Continued potassium chloride 20 mEq Packet 20 meq PO DAILY Qty: 90 2RF levothyroxine 75 mcg tablet 75 mcg PO DAILY lenalidomide [Revlimid] 10 mg Capsule 10 mg PO DAILY Qty: 14 0RF Rx Instructions: swallow whole with glass of water; do not open, crush, chew , break, or dissolve. [id number] mirtazapine 30 mg tablet 30 mg PO BEDTIME aspirin 81 mg tablet,chewable 81 mg PO DAILY fluoxetine 40 mg capsule 1 cap PO DAILY calcium carbonate [Oyster Shell Calcium 500] 500 mg calcium (1,250 mg) Tablet 500 mg PO TID 30 Days Qty: 90 0RF ondansetron 4 mg tablet,disintegrating 4 mg PO Q8H PRN (Reason: nausea and vomiting) Qty: 5 0RF trazodone 50 mg tablet 12.5 mg PO BID loperamide 2 mg Tablet 2 mg PO Q4H PRN (Reason: Loose Stool) Rx Instructions: administer after each loose stool until symptoms controlled; do not exceed 8 mg per 24 hrs Discharge Orders: Discharge Order (Routine); Ordered 09/24/24 Ordered By: Rudy Joseph Diet: Advance to usual diet Activity on Discharge: As tolerated Stand Alone Forms: Patient Portal Discharge page Print Language: [place]at[place] Care Plan Goals: Continue medications as outlined on transfer sheet Health Concerns: Magnesium and divalent will need to be checked 09/28; then at the discretion of the receiving facility Plan of Treatment: As per receiving facility Assessment: See discharge summary
--- NOTE | 2024-09-24 11:34 | PC.NURSE ---
MD to call Family for update, plan d/c to snf.
[2024-09-24 11:35] VITALS: BP 122/57; PULSE 71; RESP 18; TEMP 36.1; O2SAT 97
--- NOTE | 2024-09-24 15:35 | P.CDIM_ITS ---
PROVIDER RESPONSE TEXT: To clarify, the appropriate diagnosis supported by the clinical indicators: Acute QUERY TEXT: PHYSICIAN'S DOCUMENTATION REQUEST Date of Query: 09/23/2024 12:38 PM EDT Patient Name: Altagracia Moe Admit Date: 09/21/2024 Dear Rudy Joseph DO, A review of the medical record indicates additional documentation may be needed. Please review below and update the documentation accordingly. Clinical Indicators: Progress notes within the Plan: Metabolic acidosis in the setting of diarrhea. (diarrhea resolved) will add sodium bicarb follow renals/divalents Clarify which of the following accurately represents the acuity of the metabolic acidosis: Possible options might include: Acute Chronic Other (explain) Clinically unable to determine (explain) Thank you, Nilda Harrison, CCS, CDIS Use of terms such as suspected, likely, concern for, or probable (associated with a specific diagnosi s that is being evaluated, monitored, or treated as if it exists) are acceptable and can be coded in the inpatient se tting, when documented at the time of discharge. Please use your independent medical judgment in providing your response. THIS QUERY IS PART OF THE PERMANENT MEDICAL RECORD
--- NOTE | 2024-09-24 15:35 | P.CDIM_ITS ---
PROVIDER RESPONSE TEXT: To clarify, the appropriate diagnosis supported by the clinical indicators: Pressure Injury Stage III right buttock QUERY TEXT: PHYSICIAN'S DOCUMENTATION REQUEST Date of Query: 09/23/2024 12:36 PM EDT Patient Name: Altagracia Moe Admit Date: 09/21/2024 Dear Rudy Joseph DO, A review of the medical record indicates additional documentation may be needed. Please review below and update the documentation accordingly. Clinical Indicators: Wound care assessment 09/21 - Pressure injury Stage 3 right buttock, present on admission. Triad, foam dressing. Based on the above, could you please provide further information regarding the ulcer/wound/injury: Pressure Injury Stage III right buttock Other (explain) Clinically unable to determine (explain) Thank you, Nilda Harrison, CCS, CDIS Use of terms such as suspected, likely, concern for, or probable (associated with a specific diagnosi s that is being evaluated, monitored, or treated as if it exists) are acceptable and can be coded in the inpatient se tting, when documented at the time of discharge. Please use your independent medical judgment in providing your response. THIS QUERY IS PART OF THE PERMANENT MEDICAL RECORD
== END 2024-09-24 12:45 | disposition skilled nursing facility (03) | DRG 391 ==
LOC: HO.ED 21:40 → HO.EDOVER 22:21 → HO.S3 09-19 12:05
PROVIDERS: Nurse Practitioner Acute Care; Nurse Practitioner Family; Admitting Provider Student in an Organized Health Care Education/Training Program; Emergency Provider Emergency Medicine; PCP Internal Medicine; Visit Provider Hospitalist
DX: K52.9 Noninfective gastroenteritis and colitis, unspecified (principal); L89.313 Pressure ulcer of right buttock, stage 3; C90.00 Multiple myeloma not having achieved remission; N17.9 Acute kidney failure, unspecified; E87.21 Acute metabolic acidosis; N18.30 Chronic kidney disease, stage 3 unspecified; K21.9 Gastro-esophageal reflux disease without esophagitis; F39 Unspecified mood [affective] disorder; E83.42 Hypomagnesemia; E87.5 Hyperkalemia; E86.0 Dehydration; E83.51 Hypocalcemia; E03.9 Hypothyroidism, unspecified; Z20.822 Contact with and (suspected) exposure to COVID-19; Z87.891 Personal history of nicotine dependence; Z87.440 Personal history of urinary (tract) infections; Z79.890 Hormone replacement therapy; Z79.82 Long term (current) use of aspirin; Z79.899 Other long term (current) drug therapy
CPT/HCPCS: 0241U; 36415; 72100; 80048; 80053; 81001; 81003; 82803; 83735; 85025; 85027; 87040; 87086; 87088; 87186; 87493; 87507; 90656; 93005; 96361; 96365; 96366; 96367; 96368; 96372; 97110; 97116; 97161; 97530; 99221; 99285; J0131; J0613; J1650; J3475; J7120

== ENCOUNTER → 2024-09-18 14:44 | Outpatient (BNV) | payer MEDICARE, SELFPAY | PROVIDERS: Admitting Provider Student in an Organized Health Care Education/Training Program; Emergency Provider Emergency Medicine; PCP Internal Medicine; Visit Provider Internal Medicine Cardiovascular Disease | DX: R00.1 Bradycardia, unspecified (principal); R94.31 Abnormal electrocardiogram [ECG] [EKG]; E83.42 Hypomagnesemia | CPT/HCPCS: 93010 ==

== ENCOUNTER → 2024-09-18 21:52 | Outpatient (BNV) | payer MEDICARE, SELFPAY | PROVIDERS: Admitting Provider Student in an Organized Health Care Education/Training Program; Emergency Provider Emergency Medicine; PCP Internal Medicine; Visit Provider Student in an Organized Health Care Education/Training Program | DX: E87.21 Acute metabolic acidosis (principal); K52.9 Noninfective gastroenteritis and colitis, unspecified; C90.00 Multiple myeloma not having achieved remission | CPT/HCPCS: 99222; 99232; 99239 ==

== ENCOUNTER → 2024-09-21 11:00 | Outpatient (BNV) | payer MEDICARE, SELFPAY | PROVIDERS: Admitting Provider Student in an Organized Health Care Education/Training Program; Emergency Provider Emergency Medicine; PCP Internal Medicine; Visit Provider Internal Medicine | DX: E87.20 Acidosis, unspecified (principal); R19.7 Diarrhea, unspecified | CPT/HCPCS: 99222 ==

== ENCOUNTER 2024-11-12 17:25 | Outpatient (REF) | payer MEDICARE, SELFPAY ==
[2024-11-12 17:35] LABS: Appearance Urine Cloudy; Color Urine Yellow; Glucose Urine UA Negative (Negative); Leukocyte Esterase Urine Negative (Negative); Nitrite Urine Negative (Negative); PH 5.5 (5.0-9.0); Specific Gravity - Urine 1.015 (1.005-1.025); UMIC TRIGGER UACC YES; Urine Blood Negative (Negative); Urine Ketones Negative (Negative); Urine Protein 100 (2+) mg/dL (Neg-Trace)
[2024-11-12 17:52] LABS: Bacteria Urine 2+ (None Seen); RBC Urine 0-2 /HPF (0-2); Squamous Epithelial Cell Urine >20 /HPF (0-2); UACC Culture Trigger YES
== END 2024-11-12 17:26 | disposition home or self-care (01) ==
LOC: HO.HHCLNP 17:25
PROVIDERS: Visit Provider Family Medicine
DX: N39.0 Urinary tract infection, site not specified (principal)
CPT/HCPCS: 81001; 87086; 87088; 87186

== ENCOUNTER 2024-11-23 11:00 | Outpatient (REF) | payer MEDICARE, SELFPAY ==
[2024-11-23 13:50] LABS: Blood Urea Nitrogen 15 mg/dL (9-16); Estimated Glomerular Filt Rate > 60; Glucose Random 92 mg/dL (60-115); Phosphorus 3.3 mg/dL (2.7-4.5)
[2024-11-23 14:02] LABS: TSH reflex Free T4 0.44 uIU/mL (0.32-4.0)
[2024-11-23 14:13] LABS: Vitamin B12 496 pg/mL (200-900)
[2024-11-23 14:16] LABS: Anion Gap 12 (12-20); Calcium 5.8 mg/dL (8.4-10.2); Carbon Dioxide 21 mmol/L (22-29); Chloride 113 mmol/L (96-108); Magnesium < 0.6 mg/dL (1.6-2.6); Potassium 3.3 mmol/L (3.3-5.1); Sodium 143 mmol/L (135-145)
== END 2024-11-23 11:01 | disposition home or self-care (01) ==
LOC: HO.HHCL 11:00
PROVIDERS: Visit Provider Internal Medicine
DX: Z13.89 Encounter for screening for other disorder (principal)
CPT/HCPCS: 36415; 80048; 82607; 82746; 83735; 84100; 84443

== ENCOUNTER 2024-11-23 16:44 | Inpatient (IN) | payer MEDICARE, SELFPAY ==
[2024-11-23 16:56] VITALS: BP 140/80; PULSE 70; O2SAT 99
[2024-11-23 17:10] VITALS: BP 119/53; PULSE 67; RESP 18; TEMP 36.7; O2SAT 96; BMI 28.3
--- NOTE | 2024-11-23 17:16 | ECG_ITS ---
Test Reason : ABNORMAL LABS Blood Pressure : / mmHG Vent. Rate : 065 BPM Atrial Rate : 065 BPM P-R Int : 100 ms QRS Dur : 072 ms QT Int : 488 ms P-R-T Axes : 041 024 037 degrees QTc Int : 507 ms Poor data quality Sinus rhythm with short NH ST & T wave abnormality, consider anterior ischemia Abnormal ECG When compared with ECG of 18-SEP-2024 14:44, Non-specific change in ST segment in Lateral leads T wave inversion now evident in Anterior leads Referred By: Maureen Moura Electronically Signed By:KRISTIN ANGEL MD
[2024-11-23 17:21] LABS: MANUAL DIFF FLAG NO
[2024-11-23 17:22] LABS: Basophils Percent Auto 0.5 % (0-2); Eosinophils Absolute Auto 0.4 X10*3/uL (0.0-0.4); Eosinophils Percent Auto 6.6 % (0-4); Hematocrit 27.1 % (37.0-47.0); Hemoglobin 8.7 g/dl (12.0-16.0); Imm Gran Abs Auto 0.02 X10*3/uL (0.00-0.03); Imm Gran Pct Auto 0.3 % (0.0-0.4); Lymphocytes Absolute Auto 2.1 X10*3/uL (1.2-4.9); Lymphocytes Percent Auto 32.4 % (20-40); Mean Corpuscular HGB Conc 32.1 g/dl (31.0-35.0); Mean Corpuscular Hemoglobin 27.2 pg (27.0-33.0); Mean Corpuscular Volume 84.7 fL (80.0-98.0); Mean Platelet Volume 11.3 fL (9.4-12.3); Monocytes Absolute Auto 0.7 X10*3/uL (0.1-1.2); Monocytes Percent Auto 11.4 % (2-11); Neutrophils Absolute Auto 3.1 x10*3/uL (2.0-8.3); Neutrophils Percent Auto 48.8 % (45-73); Platelet Count 178 X10*3/uL (160-400); Red Cell Distribution Width 17.9 % (11.0-16.0); White Blood Count 6.3 X10*3/uL (4.8-10.8)
[2024-11-23] MEDS: Calcium Gluconate/NaCl,Iso-Osm 2 GM/100 ML PLAST..BAG IV ×3 (17:30→22:40)
[2024-11-23] MEDS: Magnesium Sulfate/H2O 2 GM/50 ML PIGGYBACK IV ×2 (17:30→18:40)
[2024-11-23 18:10] LABS: Alanine Aminotransferase 27 U/L (0-31); Albumin Level 3.1 g/dL (3.5-5.0); Alkaline Phosphatase 162 U/L (39-117); Anion Gap 12 (12-20); Aspartate Amino Transferase 26 U/L (5-31); Bilirubin Total 0.3 mg/dL (0.0-1.0); Blood Urea Nitrogen 18 mg/dL (9-16); Calcium 5.7 mg/dL (8.4-10.2); Carbon Dioxide 18 mmol/L (22-29); Chloride 117 mmol/L (96-108); Creatinine Clr Calc Pharmacy 40.4; Estimated Glomerular Filt Rate 57; Glucose Random 110 mg/dL (60-115); Magnesium < 0.6 mg/dL (1.6-2.6); Potassium 3.6 mmol/L (3.3-5.1); Sodium 143 mmol/L (135-145); Total Protein 6.7 g/dL (6.5-8.0)
--- NOTE | 2024-11-23 18:49 | ECG_ITS ---
Test Reason : repeat Blood Pressure : / mmHG Vent. Rate : 054 BPM Atrial Rate : 054 BPM P-R Int : 106 ms QRS Dur : 084 ms QT Int : 532 ms P-R-T Axes : 000 029 017 degrees QTc Int : 504 ms Sinus bradycardia with short MT ST & T wave abnormality, consider anterior ischemia Prolonged QT Abnormal ECG When compared with ECG of 23-NOV-2024 17:30, Nonspecific T wave abnormality, improved in Inferior leads Nonspecific T wave abnormality no longer evident in Lateral leads Referred By: Maureen Moura Electronically Signed By:KRISTIN AGNEL MD
--- NOTE | 2024-11-23 19:43 | ED_ITS ---
HPI - Recheck/Abnormal Lab/Rx General Chief Complaint: Recheck/Abnormal Lab/Rx Stated Complaint: abnormal labs low patassium low mag, Time Seen by Provider: 11/23/24 16:57 Source: patient Limitations: language barrier History of Present Illness ED Provider: Maureen Moura PA-C HPI narrative: 79-year-old female with a history of multiple myeloma, hypothyroidism, hypophosphatemia, presents with lab abnormalities. Patient's serum magnesium and calcium levels were found to be critically low. The patient has no symptoms at this time. She was sent here for assessment and potential admission. Related Data Home Medications ?Medication ?Instructions ?Recorded ?Confirmed levothyroxine 75 mcg tablet 75 mcg PO DAILY 10/27/20 09/18/24 aspirin 81 mg chewable tablet 81 mg PO DAILY 12/16/20 09/18/24 mirtazapine 30 mg tablet 30 mg PO BEDTIME 12/16/20 09/18/24 fluoxetine 40 mg capsule 1 cap PO DAILY 05/12/22 09/18/24 loperamide 2 mg tablet 2 mg PO Q4H PRN Loose Stool 02/25/24 09/18/24 trazodone 50 mg tablet 12.5 mg PO BID 09/18/24 09/18/24 Previous Rx's ?Medication ?Instructions ?Recorded calcium carbonate (Oyster Shell 500 mg PO TID 30 days #90 tabs 05/13/22 Calcium 500) potassium chloride 20 mEq oral 20 meq PO DAILY #90 ea 01/06/24 packet ondansetron 4 mg disintegrating 4 mg PO Q8H PRN nausea and 09/02/24 tablet vomiting #5 tabs lenalidomide 10 mg capsule 10 mg PO DAILY #14 caps 09/15/24 (Revlimid) magnesium oxide 250 mg PO BID #60 tabs 09/24/24 sodium bicarbonate 650 mg tablet 650 mg PO TID #90 tabs 09/24/24 Allergies Allergy/AdvReac Type Severity Reaction Status Date / Time No Known Allergies Allergy Verified 11/23/24 17:11 [No Known Allergies*] Review of Systems 2 Review of Systems: Yes all other systems are reviewed and are negative Constitutional: Constitutional: Denies fatigue and Denies fever(s) Cardiovascular: Cardiovascular: Denies chest pain and Denies dyspnea Respiratory: Respiratory: Denies chest congestion, Denies cough and Denies dyspnea Gastrointestinal: Gastrointestinal: Denies abdominal pain, Denies diarrhea, Denies nausea and Denies vomiting Endocrine: Endocrine: Denies fatigue [facility] Past Medical History Attestation statement: The following information was validated with the patient. Medical History (Updated 11/23/24 @ 23:41 by SOHAN Najera) Multiple myeloma Chronic diarrhea Tubulovillous adenoma Depression H/O gastroesophageal reflux (GERD) Hx of multiple myeloma Hypothyroidism Surgical History H/O tooth extraction History of bone marrow biopsy History of cholecystectomy Family History Family History Daughter Diabetes Thyroid cancer Social History Social History Household Members: Family Household Members Other:: adult son Housing: Apartment Are you a primary manager medicare marketing to a significant other at home: No Do you presently have visiting nurse or other home services: Yes Alcohol intake: never Comment: 1:[address] until 23:00 due to staffing constraints Patient Tobacco Use Status: Former Tobacco user Tobacco use type: Cigarette Years Smoked: 20 e-Cigarette/Vaping Use: Never Used Second Hand Smoke Exposure: No Substance Use Type: Marijuana Advance Directives: Yes Advance Directives on File: Yes Advance Directives Date on File: 03/15/21 Do you have a plan to hurt others: No Plan service: No Current occupational status: unemployed Physical Exam 2 Vital Signs: Vital Signs: Last Vital Signs Temp 98.0 F 11/23/24 17:10 Pulse 60 11/23/24 22:00 Resp 16 11/23/24 22:00 BP 134/49 L 11/23/24 22:00 Pulse Ox 97 11/23/24 22:00 O2 Del Method Room Air 11/23/24 22:00 BMI result Body Mass Index 28.3 Const: Other: Alert, overall well-appearing Orientation/consciousness: patient oriented x3 Resp: Effort & Inspection: normal respiratory effort Cardio: Other: Normal peripheral perfusion Skin: Other: Warm dry no rash Neuro: General: patient oriented x3, no focal motor deficits and CN's II-XI intact bilaterally Psych: Other: Calm cooperative Course Reevaluation(s) Reevaluation #1: Patient's granddaughter Whitney Doan, her phone number is [phone], asking for updates, I am going to verify with the grandmother the I can give her medical information over the phone to her family member. Time: 19:44 Reevaluation #2: QT unchanged an EKG, adding additional Mag this is the 2nd round, calcium still running, we will recheck the calcium in the magnesium at this time as well Reevaluation #3: Magnesium improved to 1.7, calcium so low, repeat an EKG Additional Reevaluation(s): QT still not improved, admitting Medications Administered Generic Name Dose Route Start Last Admin Trade Name Freq PRN Reason Stop Dose Admin Calcium Gluconate 2 gm in 100 mls @ 50 mls/hr 11/23/24 22:15 11/23/24 22:40 Calcium Gluconate IV 11/24/24 00:14 50 mls/hr ONCE ONE Administration Discontinued Medications Generic Name Dose Route Start Last Admin Trade Name Freq PRN Reason Stop Dose Admin Calcium Gluconate 2 gm in 100 mls @ 50 mls/hr 11/23/24 17:16 11/23/24 19:30 Calcium Gluconate IV 11/23/24 19:15 Infused ONCE ONE Infusion Magnesium Sulfate 2 gm in 50 mls @ 25 mls/hr 11/23/24 17:16 11/23/24 19:30 Magnesium Sulfate/H2o IV 11/23/24 19:15 Infused ONCE ONE Infusion Magnesium Sulfate 2 gm in 50 mls @ 25 mls/hr 11/23/24 18:10 11/23/24 20:40 Magnesium Sulfate/H2o IV 11/23/24 20:09 Infused ONCE ONE Infusion Calcium Gluconate 2 gm in 100 mls @ 50 mls/hr 11/23/24 19:11 11/23/24 20:01 Calcium Gluconate IV 11/23/24 21:10 50 mls/hr ONCE ONE Administration Magnesium Oxide 400 mg 11/23/24 22:16 11/23/24 22:39 Magnesium Oxide 400 Mg Tablet PO 11/23/24 22:17 400 mg ONCE ONE Administration Medical Decision Making Medical Decision Making MDM Narrative: 79-year-old female with a history of multiple myeloma, hypothyroidism, hypophosphatemia, presents with lab abnormalities. Patient's serum magnesium and calcium levels were found to be critically low. The patient has no symptoms at this time. She was sent here for assessment and potential admission. Problem: History: I have considered the following differential diagnoses: Electrolyte abnormalities, arrhythmia, and sense of a losses, I have independently reviewed the following tests: Labs: No leukocytosis, stable anemia, potassium 3.6, calcium 5.7, magnesium less than 0.6 albumin 3.1, repeat magnesium 1.7, repeat calcium 6.9 EKG: Sinus rhythm with short AR, rate of 65, nonspecific ST and T-wave abnormalities anterior leads, QTC 507 EKG 2.: Sinus bradycardia, rate of 54, no change in his ischemic changes T-wave inversions anterolateral leads, QTC 504 EKG 3. Sinus rhythm rate of 62, occasional PVCs, no change in ischemic changes, QTC 507 Lab Data 11/23/24 17:17 11/23/24 17:17 Labs: Lab Results 11/23/24 11/23/24 Range/Units 17:17 20:24 WBC 6.3 (4.8-10.8) X10*3/uL RBC 3.20 L (4.20-5.50) X10*6/uL Hgb 8.7 L (12.0-16.0) g/dl Hct 27.1 L (37.0-47.0) % MCV 84.7 (80.0-98.0) fL MCH 27.2 (27.0-33.0) pg MCHC 32.1 (31.0-35.0) g/dl RDW 17.9 H (11.0-16.0) % Plt Count 178 D (160-400) X10*3/uL MPV 11.3 (9.4-12.3) fL Immature Gran % (Auto) 0.3 (0.0-0.4) % Neut % (Auto) 48.8 (45-73) % Lymph % (Auto) 32.4 (20-40) % [place] % (Auto) 11.4 H (2-11) % Eos % (Auto) 6.6 H (0-4) % Baso % (Auto) 0.5 (0-2) % Lymph # (Auto) 2.1 (1.2-4.9) X10*3/uL [place] # (Auto) 0.7 (0.1-1.2) X10*3/uL Eos # (Auto) 0.4 (0.0-0.4) X10*3/uL Baso # (Auto) 0.0 (0.0-0.2) X10*3/uL Abs Immat Gran (auto) 0.02 (0.00-0.03) X10*3/uL Absolute Neuts (auto) 3.1 (2.0-8.3) x10*3/uL Absolute Nucleated RBC 0.000 (0.0-0.012) X10*3/uL Nucleated RBC % (auto) 0.0 (0.0-0.2) /100WBC Sodium 143 (135-145) mmol/L Potassium 3.6 (3.3-5.1) mmol/L Chloride 117 H (96-108) mmol/L Carbon Dioxide 18 L (22-29) mmol/L Anion Gap 12 (12-20) BUN 18 H (9-16) mg/dL Creatinine 0.94 (0.5-1.4) mg/dL Estim Creat Clear Calc 40.4 Estimated GFR 57 Random Glucose 110 (60-115) mg/dL Calcium 5.7 L* 6.9 L D (8.4-10.2) mg/dL Magnesium < 0.6 L* 1.7 (1.6-2.6) mg/dL Total Bilirubin 0.3 (0.0-1.0) mg/dL AST 26 (5-31) U/L ALT 27 (0-31) U/L Alkaline Phosphatase 162 H (39-117) U/L Total Protein 6.7 (6.5-8.0) g/dL Albumin 3.1 L (3.5-5.0) g/dL Critical Care Time Critical Care Time Critical Care Time: Yes Total Critical Care Time: 30 Attestation: Vamsi Moura PA-C have personally performed 30 minutes of critical care not including procedures Discharge Plan Discharge Clinical Impression: Hypocalcemia, Hypomagnesemia Patient Disposition: Admitted As Inpatient Print Language: Yi
[2024-11-23 20:46] LABS: Calcium 6.9 mg/dL (8.4-10.2); Magnesium 1.7 mg/dL (1.6-2.6)
[2024-11-23 22:00] VITALS: BP 134/49; PULSE 60; RESP 16; O2SAT 97
--- NOTE | 2024-11-23 22:15 | ECG_ITS ---
Test Reason : repeat Blood Pressure : / mmHG Vent. Rate : 062 BPM Atrial Rate : 062 BPM P-R Int : 126 ms QRS Dur : 082 ms QT Int : 500 ms P-R-T Axes : 021 020 017 degrees QTc Int : 507 ms Sinus rhythm with occasional Premature ventricular complexes ST & T wave abnormality, consider anterior ischemia Prolonged QT Abnormal ECG When compared with ECG of 23-NOV-2024 19:48, Premature ventricular complexes are now Present Referred By: Maureen Moura Electronically Signed By:KRISTIN ANGEL MD
[2024-11-23] MEDS: Magnesium Oxide 400 MG TABLET PO (22:39)
[2024-11-24] MEDS: Acetaminophen 325 MG TABLET 650 MG PO ×2 (02:20→12:09)
[2024-11-24] MEDS: Enoxaparin Sodium 40 MG/0.4 ML SYRINGE SUBCUT (02:21)
[2024-11-24 02:52] VITALS: BP 142/49; PULSE 61; RESP 13; TEMP 37.2; O2SAT 97
[2024-11-24 05:24] LABS: Hematocrit 24.7 % (37.0-47.0); Hemoglobin 8.1 g/dl (12.0-16.0); Mean Corpuscular HGB Conc 32.8 g/dl (31.0-35.0); Mean Corpuscular Hemoglobin 27.7 pg (27.0-33.0); Mean Corpuscular Volume 84.6 fL (80.0-98.0); Mean Platelet Volume 12.4 fL (9.4-12.3); Platelet Count 184 X10*3/uL (160-400); Red Blood Count 2.92 X10*6/uL (4.20-5.50); Red Cell Distribution Width 17.7 % (11.0-16.0); White Blood Count 6.2 X10*3/uL (4.8-10.8)
[2024-11-24 05:42] LABS: Anion Gap 11 (12-20); Blood Urea Nitrogen 18 mg/dL (9-16); Carbon Dioxide 19 mmol/L (22-29); Chloride 116 mmol/L (96-108); Creatinine Clr Calc Pharmacy 44.6; Estimated Glomerular Filt Rate > 60; Glucose Random 93 mg/dL (60-115); Magnesium 1.5 mg/dL (1.6-2.6); Potassium 3.4 mmol/L (3.3-5.1); Sodium 143 mmol/L (135-145)
[2024-11-24 06:07] VITALS: BP 123/58; PULSE 60; RESP 12; TEMP 36.8; O2SAT 96
[2024-11-24 06:12] LABS: Phosphorus 4.1 mg/dL (2.7-4.5)
[2024-11-24] MEDS: Calcium Gluconate/NaCl,Iso-Osm 2 GM/100 ML PLAST..BAG IV ×2 (06:24→14:25)
--- NOTE | 2024-11-24 06:28 | P.HPHOSP_ITS ---
History of Present Illness Date of Service: 11/24/24 Attending physician on admission: Poonam Max Chief Complaint: abnormal labs Patient is an 79-year-old female with a past medical history significant for multiple myeloma, hypothyroidism, hypophosphatemia, who presented to the ED today due to abnormal labs of critically low magnesium and calcium. She is asymptomatic and denies any chest pain, shortness of breath, nausea, vomiting or muscle cramping. She does report chronic diarrhea that has not changed from baseline and denies any urinary symptoms. Review of Systems 2 Constitutional: Constitutional: Denies chills, Denies fatigue, Denies fever(s) and Reports headache(s) (mild, improved) Eyes: Eyes: Denies change in vision ENT: Reports headache(s) (mild, improved), Denies nasal congestion, Denies nasal discharge and Denies sore throat Cardiovascular: Cardiovascular: Denies chest pain, Denies rapid heart rate, Denies leg edema, Denies lightheadedness, Denies palpitations and Denies dyspnea Respiratory: Respiratory: Denies chest congestion, Denies cough, Denies dyspnea and Denies wheezing Gastrointestinal: Gastrointestinal: Denies constipation, Reports diarrhea (chronic), Denies nausea and Denies vomiting Genitourinary: Genitourinary: Denies dysuria and Denies urinary urgency Musculoskeletal: Musculoskeletal: Denies myalgias Integumentary/Breasts: Skin/Breast: Denies rash Neurologic: Denies confusion and Reports headache(s) (mild, improved) Psychiatric: Psychiatric: Denies confusion Endocrine: Endocrine: Denies fatigue and Denies palpitations Hematologic/Lymphatic: Hematologic/Lymphatic: Denies easy bleeding Allergic/Immunologic: Allergic/Immunologic: Denies wheezing [facility] Medical History (Updated 11/24/24 @ 06:32 by Rebekah Kwon PA-C) Multiple myeloma Chronic diarrhea Tubulovillous adenoma Depression H/O gastroesophageal reflux (GERD) Hx of multiple myeloma Hypothyroidism Family History Daughter Diabetes Thyroid cancer Surgical History H/O tooth extraction History of bone marrow biopsy History of cholecystectomy Social History Household Members: Family Household Members Other:: adult son Housing: Apartment Are you a primary home care nurse to a significant other at home: No Do you presently have visiting nurse or other home services: Yes Alcohol intake: never Comment: 1:[address] until 23:00 due to staffing constraints Patient Tobacco Use Status: Former Tobacco user Tobacco use type: Cigarette Years Smoked: 20 e-Cigarette/Vaping Use: Never Used Second Hand Smoke Exposure: No Substance Use Type: Marijuana Advance Directives: Yes Advance Directives on File: Yes Advance Directives Date on File: 03/15/21 Do you have a plan to hurt others: No Plan Nutrition Risks: No Nutritional Risk service: No Current occupational status: unemployed Narrative: Previous smoker, quit a few months ago. No alcohol or drug use. Meds Allergies Allergy/AdvReac Type Severity Reaction Status Date / Time No Known Allergies Allergy Verified 11/23/24 17:11 [No Known Allergies*] Active Medications: Current Medications Acetaminophen (Acetaminophen 325 Mg Tablet) 650 mg PO Q6H PRN PRN Reason: Pain, Mild 1-3,fever,headache Last Admin: 11/24/24 02:20 Dose: 650 mg Calcium Carbonate (Calcium Carbonate 750 Mg Tab.Chew) 750 mg PO Q4H PRN PRN Reason: Heartburn Enoxaparin Sodium (Enoxaparin Sodium 40 Mg/0.4 Ml Syringe) 40 mg SUBCUT Q24H KULDEEP Last Admin: 11/24/24 02:21 Dose: 40 mg Magnesium Sulfate (Magnesium Sulfate/H2o) 2 gm in 50 mls @ 25 mls/hr IV ONCE ONE Stop: 11/24/24 07:58 Calcium Gluconate (Calcium Gluconate) 2 gm in 100 mls @ 50 mls/hr IV ONCE ONE Stop: 11/24/24 07:58 Last Admin: 11/24/24 06:24 Dose: 50 mls/hr Magnesium Hydroxide (Milk Of Magnesia 30 Ml Oral.Susp) 30 ml PO DAILY PRN PRN Reason: Constipation Melatonin (Melatonin 3 Mg Tablet) 6 mg PO BEDTIME PRN PRN Reason: Insomnia Ondansetron HCl (Ondansetron Hcl 4 Mg/2 Ml Vial) 4 mg IVPUSH Q8H PRN PRN Reason: Nausea and Vomiting Potassium Chloride (Potassium Chloride Packet 20 Meq Packet) 40 meq PO ONCE ONE Stop: 11/24/24 06:27 Sodium Chloride (0.9 % Sodium Chloride Flush 3 Ml Syringe) 3 ml IVFLUSH QSHIFT [facility] Home Medications ?Medication ?Instructions ?Recorded ?Confirmed ?Last Taken ?Type levothyroxine 75 mcg tablet 75 mcg PO DAILY 10/27/20 09/18/24 09/17/24 History aspirin 81 mg chewable tablet 81 mg PO DAILY 12/16/20 09/18/24 09/17/24 History mirtazapine 30 mg tablet 30 mg PO BEDTIME 12/16/20 09/18/24 09/17/24 History fluoxetine 40 mg capsule 1 cap PO DAILY 05/12/22 09/18/24 09/17/24 History loperamide 2 mg tablet 2 mg PO Q4H PRN Loose Stool 02/25/24 09/18/24 Unknown History trazodone 50 mg tablet 12.5 mg PO BID 09/18/24 09/18/24 09/17/24 History Physical Exam 2 Vital Signs and Narrative: Vital Signs: Last Vital Signs Temp 98.2 F 11/24/24 06:07 Pulse 60 11/24/24 06:07 Resp 12 11/24/24 06:07 BP 123/58 L 11/24/24 06:07 Pulse Ox 96 11/24/24 06:07 O2 Del Method Room Air 11/24/24 06:07 BMI result Body Mass Index 28.3 General: AOx3, no acute distress, resident care director present Resp: CTA bilaterally CVS: S1, S2, RRR GI: +BS, NT, no distention Skin: Warm, dry Neuro: Cranial nerves II-XII grossly intact bilaterally. Motor grossly intact bilaterally Extremities: No LE edema Psych: Appropriate affect Const: General: No confusion Orientation/consciousness: No confusion Neuro: General: No confusion Results Labs 11/24/24 04:55 11/24/24 04:55 Labs: Laboratory Results - last 24 hr 11/23/24 11/23/24 11/24/24 17:17 20:24 04:55 MCV 84.7 84.6 MCH 27.2 27.7 MCHC 32.1 32.8 RDW 17.9 H 17.7 H Plt Count 178 D 184 MPV 11.3 12.4 H Immature Gran % (Auto) 0.3 Neut % (Auto) 48.8 Lymph % (Auto) 32.4 [place] % (Auto) 11.4 H Eos % (Auto) 6.6 H Baso % (Auto) 0.5 Lymph # (Auto) 2.1 [place] # (Auto) 0.7 Eos # (Auto) 0.4 Baso # (Auto) 0.0 Abs Immat Gran (auto) 0.02 Absolute Neuts (auto) 3.1 Absolute Nucleated RBC 0.000 0.000 Nucleated RBC % (auto) 0.0 0.0 Anion Gap 12 11 L Estim Creat Clear Calc 40.4 44.6 Estimated GFR 57 > 60 Random Glucose 110 93 Calcium 5.7 L* 6.9 L D 7.0 L Phosphorus 4.1 Magnesium < 0.6 L* 1.7 1.5 L Total Bilirubin 0.3 AST 26 ALT 27 Alkaline Phosphatase 162 H Total Protein 6.7 Albumin 3.1 L Assessment and Plan (1) Hypocalcemia: Status: Acute (2) Hypomagnesemia: Status: Acute (3) Prolonged QT interval: Status: Acute Plan Patient is an 79-year-old female with a past medical history significant for multiple myeloma, hypothyroidism, hypophosphatemia, who presented to the ED today due to abnormal labs of critically low magnesium and calcium. She is asymptomatic and denies any chest pain, shortness of breath, nausea, vomiting or muscle cramping. Severe hypocalcemia, asx - calcium 5.7 on arrival, most recently 7.0 - phosphorus normal - given 6 g calcium gluconate in ED, give additional 2 g now - monitor BMP, recheck in 6 hours - check PTH and vitamin-D Hypomagnesemia secondary to severe hypocalcemia - magnesium less than 0.06 initially, recently 1.5 - given 4 g IV in ED, give additional 2 g now - potassium low normal, give 40 mEq PO now - monitor magnesium Prolonged QT secondary to electrolyte abnormalities - replenish magnesium and potassium, goal of magnesium greater than 2 and potassium 4.0 - continue to monitor with telemetry Multiple myeloma - followed by Dr. Dukes Hypothyroidism - continue levothyroxine Full code VTE prophylaxis: Lovenox Patient with severe hypocalcemia and hypomagnesemia with EKG changes requiring observation while replenishing electrolytes. Quality Stroke Does the patient have a stroke diagnosis?: No VTE Prior VTE?: No VTE Risk Level:: Medical - moderate - high VTE Device Contraindication: Treatment Not Indicated VTE Drug Contraindication: N/A - Med Ordered
--- NOTE | 2024-11-24 06:29 | PC.NURSE ---
Pt medicated per [facility] Plan of care ongoing.
[2024-11-24] MEDS: Magnesium Sulfate/H2O 2 GM/50 ML PIGGYBACK IV ×2 (07:28→15:45)
[2024-11-24] MEDS: Potassium Chloride Packet 20 MEQ PACKET 40 MEQ PO (07:29)
--- NOTE | 2024-11-24 07:51 | PHA.MEDREC ---
Pharmacy Consult ? Medication Reconciliation Pharmacy has completed the medication reconciliation. Spoke to patient at bedside with help from behavioral instructor services. Patient said she takes a lot of meds and isn't so sure of them. She endorsed that she hasn't changed her medications since she was here last (09/24/2024) and that she took her meds yesterday. There has been a few new fills, which I added in addition to her previous meds. These were Lidocaine 5% patch, Omeprazole, and a weekly Lokelma.
[2024-11-24] MEDS: traZODone HCL 50 MG TABLET 12.5 MG PO ×2 (09:07→20:59)
[2024-11-24] MEDS: FLUoxetine HCl 20 MG CAPSULE 40 MG PO (09:10)
[2024-11-24] MEDS: Levothyroxine Sodium 75 MCG TABLET PO (09:10)
[2024-11-24] MEDS: Omeprazole 20 MG CAPSULE.DR PO (09:11)
[2024-11-24] MEDS: Aspirin 81 MG TAB.CHEW PO (09:11)
[2024-11-24] MEDS: Sodium Bicarbonate 650 MG TABLET PO ×3 (09:11→21:01)
--- NOTE | 2024-11-24 09:32 | PC.NURSE ---
update given to granddaughter Whitney [phone], main point of contact for any updates. asked her to relay to family if someone could bring in her revlimid medication per pharmacy it is not in stock in [facility]. she stated she will follow up and bring if needed.
[2024-11-24 09:50] LABS: Parathyroid Hormone Intact 121.2 pg/mL (8.7-77.1)
--- NOTE | 2024-11-24 11:40 | MHC.CM.PN ---
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 HCP is on file, naming her , Giovanny, and he has . HCP to be discussed with her and family when they are here. For DME she uses a walker. PCP is at [facility], Maria R Long. Pt. may need assistance with transport home at DC. DCP: home, resume services. CM to follow for DC needs.
[2024-11-24 12:03] VITALS: BP 153/58; PULSE 50; RESP 15; TEMP 37; O2SAT 99
[2024-11-24 12:57] LABS: Anion Gap 10 (12-20); Blood Urea Nitrogen 15 mg/dL (9-16); Calcium 7.4 mg/dL (8.4-10.2); Carbon Dioxide 20 mmol/L (22-29); Chloride 116 mmol/L (96-108); Creatinine Clr Calc Pharmacy 48.6; Estimated Glomerular Filt Rate > 60; Glucose Random 86 mg/dL (60-115); Potassium 4.2 mmol/L (3.3-5.1); Sodium 142 mmol/L (135-145)
--- NOTE | 2024-11-24 13:53 | PM.EVENT ---
Event Note Date of Service: 11/24/24 Event Note: Chart reviewed patient examined. Agree with the assessment and plan as outlined. We will aggressively replete calcium and magnesium and follow renals and divalent Time Spent With Patient Time: Total time managing care of this patient today ____ minutes.
[2024-11-24 19:50] VITALS: BMI 27.3
[2024-11-24 19:59] VITALS: BP 162/72; PULSE 54; RESP 14; TEMP 36.4; O2SAT 99
[2024-11-24] MEDS: Mirtazapine 30 MG TABLET PO (21:01)
[2024-11-24 23:40] VITALS: BP 150/69; PULSE 58; RESP 18; TEMP 36.3; O2SAT 98
[2024-11-25] VITALS (7 sets, daily range): BP systolic 105–156; BP diastolic 59–77; PULSE 55–80; RESP 14–18; TEMP 36.1–37.1; O2SAT 93–99
[2024-11-25] MEDS: 0.9 % Sodium Chloride Flush 3 ML SYRINGE IVFLUSH ×4 (00:20→21:09)
[2024-11-25] MEDS: Enoxaparin Sodium 40 MG/0.4 ML SYRINGE SUBCUT (00:20)
[2024-11-25] MEDS: Omeprazole 20 MG CAPSULE.DR PO (06:08)
[2024-11-25] MEDS: Levothyroxine Sodium 75 MCG TABLET PO (06:08)
[2024-11-25 07:19] LABS: MANUAL DIFF FLAG NO
[2024-11-25 07:40] LABS: Basophils Percent Auto 0.7 % (0-2); Eosinophils Absolute Auto 0.4 X10*3/uL (0.0-0.4); Eosinophils Percent Auto 7.1 % (0-4); Hematocrit 25.9 % (37.0-47.0); Imm Gran Abs Auto 0.02 X10*3/uL (0.00-0.03); Imm Gran Pct Auto 0.4 % (0.0-0.4); Lymphocytes Percent Auto 36.4 % (20-40); Mean Corpuscular HGB Conc 30.9 g/dl (31.0-35.0); Mean Corpuscular Hemoglobin 26.6 pg (27.0-33.0); Mean Platelet Volume 12.3 fL (9.4-12.3); Monocytes Absolute Auto 0.5 X10*3/uL (0.1-1.2); Monocytes Percent Auto 8.4 % (2-11); Neutrophils Absolute Auto 2.5 x10*3/uL (2.0-8.3); Platelet Count 187 X10*3/uL (160-400); Red Blood Count 3.01 X10*6/uL (4.20-5.50); Red Cell Distribution Width 17.3 % (11.0-16.0); White Blood Count 5.4 X10*3/uL (4.8-10.8)
[2024-11-25 07:52] LABS: Alanine Aminotransferase 28 U/L (0-31); Albumin Level 2.8 g/dL (3.5-5.0); Alkaline Phosphatase 154 U/L (39-117); Anion Gap 12 (12-20); Aspartate Amino Transferase 35 U/L (5-31); Bilirubin Total 0.2 mg/dL (0.0-1.0); Blood Urea Nitrogen 17 mg/dL (9-16); Calcium 7.5 mg/dL (8.4-10.2); Carbon Dioxide 20 mmol/L (22-29); Chloride 115 mmol/L (96-108); Creatinine Clr Calc Pharmacy 50.4; Estimated Glomerular Filt Rate > 60; Glucose Fasting 100 mg/dL (60-99); Magnesium 1.6 mg/dL (1.6-2.6); Sodium 143 mmol/L (135-145); Total Protein 6.2 g/dL (6.5-8.0)
[2024-11-25] MEDS: Aspirin 81 MG TAB.CHEW PO (09:38)
[2024-11-25] MEDS: FLUoxetine HCl 20 MG CAPSULE 40 MG PO (09:38)
[2024-11-25] MEDS: Potassium Chloride Packet 20 MEQ PACKET PO (09:38)
[2024-11-25] MEDS: traZODone HCL 50 MG TABLET 12.5 MG PO ×2 (09:38→21:08)
[2024-11-25] MEDS: Sodium Bicarbonate 650 MG TABLET PO ×3 (09:38→21:08)
--- NOTE | 2024-11-25 14:52 | P.PNIM_ITS ---
Subjective Subjective Date of Service: 11/25/24 Interval History: Feeling better since admission, complaining of weakness, tolerating diet, no nausea, no vomiting, no abdominal pain no acute events overnight, lives at home with son and daughter. No diarrhea. Review of Systems All other system reviewed and are negative. Physical Exam 2 Vital Signs: Vital Signs: Last Vital Signs Temp 97.3 F 11/25/24 11:36 Pulse 56 11/25/24 11:36 Resp 18 11/25/24 11:36 BP 138/59 L 11/25/24 11:36 Pulse Ox 99 11/25/24 11:36 O2 Del Method Room Air 11/25/24 11:36 BMI result Body Mass Index 27.3 Const: Other: General: AOx3, no acute distress Anicteric sclera Moist oral mucosa Resp: CTA bilaterally CVS: S1, S2, RRR GI: +BS, NT, no distention Skin: Warm, dry Neuro: Nonfocal Extremities: No LE edema Psych: Appropriate affect Objective Data Active Medications Acetaminophen (Acetaminophen 325 Mg Tablet) 650 mg PO Q6H PRN PRN Reason: Pain, Mild 1-3,fever,headache Last Admin: 11/24/24 12:09 Dose: 650 mg Documented By: JORGE Aspirin (Aspirin 81 Mg Tab.Chew) 81 mg PO DAILY [facility] Last Admin: 11/25/24 09:38 Dose: 81 mg Documented By: MAXIMILIAN Calcitriol (Calcitriol 0.25 Mcg Capsule) 0.25 mcg PO DAILY [facility] Calcium Carbonate (Calcium Carbonate 750 Mg Tab.Chew) 750 mg PO Q4H PRN PRN Reason: Heartburn Calcium Carbonate (Calcium Carbonate 750 Mg Tab.Chew) 750 mg PO DAILY [facility] Enoxaparin Sodium (Enoxaparin Sodium 40 Mg/0.4 Ml Syringe) 40 mg SUBCUT Q24H [facility] Last Admin: 11/25/24 00:20 Dose: 40 mg Documented By: ALFRED Fluoxetine HCl (Fluoxetine Hcl 20 Mg Capsule) 40 mg PO DAILY [facility] Last Admin: 11/25/24 09:38 Dose: 40 mg Documented By: MAXIMILIAN Levothyroxine Sodium (Levothyroxine Sodium 75 Mcg Tablet) 75 mcg PO DAILY@0600 [facility] Last Admin: 11/25/24 06:08 Dose: 75 mcg Documented By: ALFRED Magnesium Hydroxide (Milk Of Magnesia 30 Ml Oral.Susp) 30 ml PO DAILY PRN PRN Reason: Constipation Melatonin (Melatonin 3 Mg Tablet) 6 mg PO BEDTIME PRN PRN Reason: Insomnia Mirtazapine (Mirtazapine 30 Mg Tablet) 30 mg PO BEDTIME [facility] Last Admin: 11/24/24 21:01 Dose: 30 mg Documented By: LUIS EDUARDO Non-Formulary Medication (Lenalidomide [Revlimid]) 10 mg PO DAILY [facility] Omeprazole (Omeprazole 20 Mg Capsule.Dr) 20 mg PO DAILY@0630 [facility] Last Admin: 11/25/24 06:08 Dose: 20 mg Documented By: ALFRED Ondansetron HCl (Ondansetron Hcl 4 Mg/2 Ml Vial) 4 mg IVPUSH Q8H PRN PRN Reason: Nausea and Vomiting Potassium Chloride (Potassium Chloride Packet 20 Meq Packet) 20 meq PO DAILY [facility] Last Admin: 11/25/24 09:38 Dose: 20 meq Documented By: RICCIAV Sodium Bicarbonate (Sodium Bicarbonate 650 Mg Tablet) 650 mg PO TID [facility] Last Admin: 11/25/24 14:40 Dose: 650 mg Documented By: RICCIAV Sodium Chloride (0.9 % Sodium Chloride Flush 3 Ml Syringe) 3 ml IVFLUSH QSHIFT [facility] Last Admin: 11/25/24 14:41 Dose: 3 ml Documented By: MINDACIAV Trazodone HCl (Trazodone Hcl 50 Mg Tablet) 12.5 mg PO BID [facility] Last Admin: 11/25/24 09:38 Dose: 12.5 mg Documented By: RICCIAV Labs 11/25/24 07:00 11/25/24 07:00 Labs: Laboratory Results - last 24 hr 11/25/24 07:00 MCV 86.0 MCH 26.6 L MCHC 30.9 L RDW 17.3 H Plt Count 187 MPV 12.3 Immature Gran % (Auto) 0.4 Neut % (Auto) 47.0 Lymph % (Auto) 36.4 [place] % (Auto) 8.4 Eos % (Auto) 7.1 H Baso % (Auto) 0.7 Lymph # (Auto) 2.0 [place] # (Auto) 0.5 Eos # (Auto) 0.4 Baso # (Auto) 0.0 Abs Immat Gran (auto) 0.02 Absolute Neuts (auto) 2.5 Absolute Nucleated RBC 0.000 Nucleated RBC % (auto) 0.0 Anion Gap 12 Estim Creat Clear Calc 50.4 Estimated GFR > 60 Fasting Glucose 100 H Calcium 7.5 L Magnesium 1.6 Total Bilirubin 0.2 AST 35 H ALT 28 Alkaline Phosphatase 154 H Total Protein 6.2 L Albumin 2.8 L Assessment and Plan (1) Prolonged QT interval: Status: Acute (2) Hypomagnesemia: Status: Acute (3) Hypocalcemia: Status: Acute Plan 79-year-old female with a past medical history significant for multiple myeloma, hypothyroidism, hypophosphatemia, who presented to the ED today due to abnormal labs of critically low magnesium and calcium. She is asymptomatic and denies any chest pain, shortness of breath, nausea, vomiting or muscle cramping. Severe acute on chronic hypocalcemia, - calcium 5.7 on arrival, most recently 7.0, treated with total 8g of calcium gluconate, calcium improved to 7.5 - phosphorus normal, elevated PTH 121 and low 25 hydroxy of 17 -likely multifactorial due to hypo magnesemia, low albumin -will place on cholecalciferol and calcium carbonate -recommend out of bed to chair /monitor labs -renal consult Hypomagnesemia repleted and improved from less than 0.6-1.6, question related to PPI and diarrhea - monitor magnesium Prolonged QT secondary to electrolyte abnormalities - replenish magnesium and potassium, goal of magnesium greater than 2 and potassium 4.0 - repeat EKG continue to monitor with telemetry Multiple myeloma - followed by Dr. Dukes Hypothyroidism - continue levothyroxine,check tsh Full code VTE prophylaxis: Lovenox Patient with severe hypocalcemia and hypomagnesemia with EKG changes requiring close monitoring of electrolytes and safe disposition Quality Stroke Does the patient have a stroke diagnosis?: No VTE Prior VTE?: No VTE Risk Level:: Medical - moderate - high VTE Device Contraindication: Treatment Not Indicated VTE Drug Contraindication: N/A - Med Ordered
[2024-11-25] MEDS: Mirtazapine 30 MG TABLET PO (21:07)
[2024-11-25] MEDS: calcitrioL 0.25 MCG CAPSULE PO (21:09)
[2024-11-26] MEDS: Enoxaparin Sodium 40 MG/0.4 ML SYRINGE SUBCUT ×2 (00:45→21:47)
[2024-11-26 03:42] VITALS: BP 141/63; PULSE 68; RESP 20; TEMP 36.6; O2SAT 96
[2024-11-26] MEDS: Levothyroxine Sodium 75 MCG TABLET PO (05:58)
[2024-11-26] MEDS: Omeprazole 20 MG CAPSULE.DR PO (05:58)
[2024-11-26 07:35] VITALS: BP 146/67; PULSE 54; RESP 18; TEMP 36.3; O2SAT 95
[2024-11-26 07:59] LABS: MANUAL DIFF FLAG NO
[2024-11-26 08:03] LABS: Basophils Percent Auto 0.7 % (0-2); Eosinophils Absolute Auto 0.3 X10*3/uL (0.0-0.4); Hematocrit 26.7 % (37.0-47.0); Hemoglobin 8.5 g/dl (12.0-16.0); Imm Gran Abs Auto 0.02 X10*3/uL (0.00-0.03); Imm Gran Pct Auto 0.4 % (0.0-0.4); Lymphocytes Absolute Auto 2.4 X10*3/uL (1.2-4.9); Lymphocytes Percent Auto 44.1 % (20-40); Mean Corpuscular HGB Conc 31.8 g/dl (31.0-35.0); Mean Corpuscular Hemoglobin 27.2 pg (27.0-33.0); Mean Corpuscular Volume 85.6 fL (80.0-98.0); Mean Platelet Volume 11.7 fL (9.4-12.3); Monocytes Absolute Auto 0.4 X10*3/uL (0.1-1.2); Neutrophils Absolute Auto 2.2 x10*3/uL (2.0-8.3); Neutrophils Percent Auto 40.8 % (45-73); Platelet Count 190 X10*3/uL (160-400); Red Blood Count 3.12 X10*6/uL (4.20-5.50); Red Cell Distribution Width 17.1 % (11.0-16.0); White Blood Count 5.4 X10*3/uL (4.8-10.8)
[2024-11-26 08:41] LABS: Thyroid Stimulating Hormone 0.44 uIU/mL (0.32-4.0)
[2024-11-26 08:43] LABS: Alanine Aminotransferase 35 U/L (0-31); Alkaline Phosphatase 159 U/L (39-117); Anion Gap 12 (12-20); Aspartate Amino Transferase 33 U/L (5-31); Bilirubin Total 0.3 mg/dL (0.0-1.0); Blood Urea Nitrogen 16 mg/dL (9-16); Calcium 7.8 mg/dL (8.4-10.2); Carbon Dioxide 21 mmol/L (22-29); Chloride 112 mmol/L (96-108); Creatinine Clr Calc Pharmacy 47.2; Estimated Glomerular Filt Rate > 60; Glucose Fasting 85 mg/dL (60-99); Glucose Random 85 mg/dL (60-115); Magnesium 1.4 mg/dL (1.6-2.6); Potassium 4.3 mmol/L (3.3-5.1); Sodium 141 mmol/L (135-145); Total Protein 6.4 g/dL (6.5-8.0)
[2024-11-26] MEDS: traZODone HCL 50 MG TABLET 12.5 MG PO ×2 (09:43→21:47)
[2024-11-26] MEDS: calcitrioL 0.25 MCG CAPSULE PO (09:43)
[2024-11-26] MEDS: FLUoxetine HCl 20 MG CAPSULE 40 MG PO (09:43)
[2024-11-26] MEDS: Calcium Carbonate 750 MG TAB.CHEW PO (09:43)
[2024-11-26] MEDS: Sodium Bicarbonate 650 MG TABLET PO ×3 (09:44→21:47)
[2024-11-26] MEDS: 0.9 % Sodium Chloride Flush 3 ML SYRINGE IVFLUSH ×3 (09:44→21:52)
[2024-11-26] MEDS: Potassium Chloride Packet 20 MEQ PACKET PO (09:44)
[2024-11-26] MEDS: Aspirin 81 MG TAB.CHEW PO (09:44)
[2024-11-26] MEDS: Magnesium Sulfate/H2O 2 GM/50 ML PIGGYBACK IV (10:51)
[2024-11-26 11:21] VITALS: BP 141/63; PULSE 62; RESP 18; TEMP 36.3; O2SAT 99
--- NOTE | 2024-11-26 12:01 | P.PNIM_ITS ---
Subjective Subjective Date of Service: 11/26/24 Interval History: Feeling better this morning denies lightheadedness, no dizziness, no nausea, no vomiting or abdominal pain, ambulated without symptoms. Tolerating diet No acute events overnight. History obtained via english language learner tutor. Review of Systems All other system reviewed and are negative. Physical Exam 2 Vital Signs: Vital Signs: Last Vital Signs Temp 97.4 F 11/26/24 11:21 Pulse 62 11/26/24 11:21 Resp 18 11/26/24 11:21 BP 141/63 H 11/26/24 11:21 Pulse Ox 99 11/26/24 11:21 O2 Del Method Room Air 11/26/24 11:21 BMI result Body Mass Index 27.3 Const: Other: General: AOx3, no acute distress Anicteric sclera Moist oral mucosa Resp: CTA bilaterally CVS: S1, S2, RRR GI: +BS, NT, no distention Skin: Warm, dry Neuro: Nonfocal Extremities: No LE edema Psych: Appropriate affect Objective Data Active Medications Acetaminophen (Acetaminophen 325 Mg Tablet) 650 mg PO Q6H PRN PRN Reason: Pain, Mild 1-3,fever,headache Last Admin: 11/24/24 12:09 Dose: 650 mg Documented By: JORGE Aspirin (Aspirin 81 Mg Tab.Chew) 81 mg PO DAILY [facility] Last Admin: 11/26/24 09:44 Dose: 81 mg Documented By: REYNA Calcitriol (Calcitriol 0.25 Mcg Capsule) 0.25 mcg PO DAILY [facility] Calcium Carbonate (Calcium Carbonate 750 Mg Tab.Chew) 750 mg PO Q4H PRN PRN Reason: Heartburn Calcium Carbonate (Calcium Carbonate 750 Mg Tab.Chew) 750 mg PO DAILY [facility] Last Admin: 11/26/24 09:43 Dose: 750 mg Documented By: REYNA Enoxaparin Sodium (Enoxaparin Sodium 40 Mg/0.4 Ml Syringe) 40 mg SUBCUT Q24H [facility] Last Admin: 11/26/24 00:45 Dose: 40 mg Documented By: ALFRED Fluoxetine HCl (Fluoxetine Hcl 20 Mg Capsule) 40 mg PO DAILY [facility] Last Admin: 11/26/24 09:43 Dose: 40 mg Documented By: REYNA Magnesium Sulfate (Magnesium Sulfate/H2o) 2 gm in 50 mls @ 25 mls/hr IV ONCE ONE Stop: 11/26/24 12:26 Last Admin: 11/26/24 10:51 Dose: 25 mls/hr Documented By: REYNA Levothyroxine Sodium (Levothyroxine Sodium 75 Mcg Tablet) 75 mcg PO DAILY@0600 [facility] Last Admin: 11/26/24 05:58 Dose: 75 mcg Documented By: ALFRED Magnesium Hydroxide (Milk Of Magnesia 30 Ml Oral.Susp) 30 ml PO DAILY PRN PRN Reason: Constipation Melatonin (Melatonin 3 Mg Tablet) 6 mg PO BEDTIME PRN PRN Reason: Insomnia Mirtazapine (Mirtazapine 30 Mg Tablet) 30 mg PO BEDTIME [facility] Last Admin: 11/25/24 21:07 Dose: 30 mg Documented By: RYAN Non-Formulary Medication (Lenalidomide [Revlimid]) 10 mg PO DAILY [facility] Omeprazole (Omeprazole 20 Mg Capsule.Dr) 20 mg PO DAILY@0630 [facility] Last Admin: 11/26/24 05:58 Dose: 20 mg Documented By: ALFRED Ondansetron HCl (Ondansetron Hcl 4 Mg/2 Ml Vial) 4 mg IVPUSH Q8H PRN PRN Reason: Nausea and Vomiting Potassium Chloride (Potassium Chloride Packet 20 Meq Packet) 20 meq PO DAILY [facility] Last Admin: 11/26/24 09:44 Dose: 20 meq Documented By: REYNA Sodium Bicarbonate (Sodium Bicarbonate 650 Mg Tablet) 650 mg PO TID [facility] Last Admin: 11/26/24 09:44 Dose: 650 mg Documented By: REYNA Sodium Chloride (0.9 % Sodium Chloride Flush 3 Ml Syringe) 3 ml IVFLUSH QSHIFT [facility] Last Admin: 11/26/24 09:44 Dose: 3 ml Documented By: REYNA Trazodone HCl (Trazodone Hcl 50 Mg Tablet) 12.5 mg PO BID [facility] Last Admin: 11/26/24 09:43 Dose: 12.5 mg Documented By: REYNA Labs 11/26/24 07:38 11/26/24 07:38 Labs: Laboratory Results - last 24 hr 11/26/24 07:38 MCV 85.6 MCH 27.2 MCHC 31.8 RDW 17.1 H Plt Count 190 MPV 11.7 Immature Gran % (Auto) 0.4 Neut % (Auto) 40.8 L Lymph % (Auto) 44.1 H [place] % (Auto) 8.0 Eos % (Auto) 6.0 H Baso % (Auto) 0.7 Lymph # (Auto) 2.4 [place] # (Auto) 0.4 Eos # (Auto) 0.3 Baso # (Auto) 0.0 Abs Immat Gran (auto) 0.02 Absolute Neuts (auto) 2.2 Absolute Nucleated RBC 0.000 Nucleated RBC % (auto) 0.0 Anion Gap 12 Estim Creat Clear Calc 47.2 Estimated GFR > 60 Random Glucose 85 Fasting Glucose 85 Calcium 7.8 L Magnesium 1.4 L* Total Bilirubin 0.3 AST 33 H ALT 35 H Alkaline Phosphatase 159 H Total Protein 6.4 L Albumin 3.0 L TSH 0.44 Assessment and Plan (1) Prolonged QT interval: Status: Acute (2) Hypomagnesemia: Status: Acute (3) Hypocalcemia: Status: Acute Plan 79-year-old female with a past medical history significant for multiple myeloma, hypothyroidism, hypophosphatemia, who presented to the ED today due to abnormal labs of critically low magnesium and calcium. She is asymptomatic and denies any chest pain, shortness of breath, nausea, vomiting or muscle cramping. Severe acute on chronic hypocalcemia, - calcium 5.7 on arrival, treated with total 8g of calcium gluconate, calcium improved to 7.8 - phosphorus normal, elevated PTH 121 and low 25 hydroxy of 17 -likely multifactorial due to hypo magnesemia, low albumin,and revlimid, recommend good nutrition ,added protein supplements -started on on cholecalciferol and calcium carbonate -recommend out of bed to chair /monitor labs -renal consult -normal potassium level patient on Lokelma and potassium replacement will discontinue both medications Hypomagnesemia repleted and improved from less than 0.6-1.6, again dropped to 1.4 question related to PPI and diarrhea - replace magnesium and monitor - will DC PPI Prolonged QT secondary to electrolyte abnormalities - replenish magnesium and potassium, goal of magnesium greater than 2 and potassium 4.0 - repeat EKG continue to monitor with telemetry Multiple myeloma with chronic stable anemia - followed by Dr. Dukes on Revlimid Hypothyroidism - continue levothyroxine,check tsh History of erosive gastritis/duodenitis with positive H pylori on PPI since patient asymptomatic and likely treated for H pylori can DC Prilosec and follow clinically Full code VTE prophylaxis: Lovenox Patient with severe hypocalcemia and hypomagnesemia with EKG changes requiring close monitoring of electrolytes and safe disposition Quality Stroke Does the patient have a stroke diagnosis?: No VTE Prior VTE?: No VTE Risk Level:: Medical - moderate - high VTE Device Contraindication: Treatment Not Indicated VTE Drug Contraindication: N/A - Med Ordered
[2024-11-26 15:11] VITALS: BP 149/70; PULSE 60; RESP 18; TEMP 36.8; O2SAT 99
--- NOTE | 2024-11-26 15:15 | P.CONNP_ITS ---
History of Present Illness Reason for Consult Consult date: 11/26/24 Reason for consult: HypoMg and HypoCa Chief Complaint Chief complaint: Abnormal Labs History of Present Illness Narrative: RTANE consuloted for hypoMg and HypoCa XChart reveiwed and PT examined. H/O Myelma and chronic diarrhea Getting Denusamab ? from Heme/Onc for ongoing Tx of bone protection given Myeloma Overall feeling better since adm, decr diarrhea Tingling and weakness much improved Review of Systems Review of Systems All other system reviewed and are negative. Yes all other systems are reviewed and are negative Constitutional: Denies chills, Denies fatigue, Denies fever(s) and Reports headache(s) (mild, improved) Eyes: Denies change in vision Reports headache(s) (mild, improved), Denies nasal congestion, Denies nasal discharge and Denies sore throat Cardiovascular: Denies chest pain, Denies rapid heart rate, Denies leg edema, Denies lightheadedness, Denies palpitations and Denies dyspnea Respiratory: Denies chest congestion, Denies cough, Denies dyspnea and Denies wheezing Gastrointestinal: Denies abdominal pain, Denies constipation, Reports diarrhea (chronic), Denies nausea and Denies vomiting Musculoskeletal: Denies myalgias Skin/Breast: Denies rash Denies confusion and Reports headache(s) (mild, improved) Psychiatric: Denies confusion Endocrine: Denies fatigue and Denies palpitations Hematologic/Lymphatic: Denies easy bleeding Allergic/Immunologic: Denies wheezing PMFSH Past Medical History Medical History Multiple myeloma Chronic diarrhea Tubulovillous adenoma Depression H/O gastroesophageal reflux (GERD) Hx of multiple myeloma Hypothyroidism Family History Family History Daughter Diabetes Thyroid cancer Surgical History Surgical History H/O tooth extraction History of bone marrow biopsy History of cholecystectomy Social History Social History Household Members: Family Household Members Other:: adult son Housing: Apartment Are you a primary farm or ranch animal caretaker to a significant other at home: No Do you presently have visiting nurse or other home services: Yes Alcohol intake: never Comment: 1:[address] until 23:00 due to staffing constraints Patient Tobacco Use Status: Former Tobacco user Tobacco use type: Cigarette Years Smoked: 20 e-Cigarette/Vaping Use: Never Used Second Hand Smoke Exposure: No Substance Use Type: Marijuana Currently Displaying Signs/Symptoms of Drug Intoxication Withdrawal: No Advance Directives: Yes Advance Directives on File: Yes Advance Directives Date on File: 03/15/21 Do you have a plan to hurt others: No Plan Nutrition Risks: No Nutritional Risk service: No Current occupational status: unemployed Meds Allergies Allergy/AdvReac Type Severity Reaction Status Date / Time No Known Allergies Allergy Verified 11/23/24 17:11 [No Known Allergies*] Active Medications: Current Medications Acetaminophen (Acetaminophen 325 Mg Tablet) 650 mg PO Q6H PRN PRN Reason: Pain, Mild 1-3,fever,headache Last Admin: 11/24/24 12:09 Dose: 650 mg Aspirin (Aspirin 81 Mg Tab.Chew) 81 mg PO DAILY [facility] Last Admin: 11/26/24 09:44 Dose: 81 mg Calcitriol (Calcitriol 0.25 Mcg Capsule) 0.25 mcg PO DAILY [facility] Calcium Carbonate (Calcium Carbonate 750 Mg Tab.Chew) 750 mg PO Q4H PRN PRN Reason: Heartburn Calcium Carbonate (Calcium Carbonate 750 Mg Tab.Chew) 750 mg PO DAILY [facility] Last Admin: 11/26/24 09:43 Dose: 750 mg Enoxaparin Sodium (Enoxaparin Sodium 40 Mg/0.4 Ml Syringe) 40 mg SUBCUT Q24H [facility] Last Admin: 11/26/24 00:45 Dose: 40 mg Fluoxetine HCl (Fluoxetine Hcl 20 Mg Capsule) 40 mg PO DAILY [facility] Last Admin: 11/26/24 09:43 Dose: 40 mg Levothyroxine Sodium (Levothyroxine Sodium 75 Mcg Tablet) 75 mcg PO DAILY@0600 [facility] Last Admin: 11/26/24 05:58 Dose: 75 mcg Magnesium Hydroxide (Milk Of Magnesia 30 Ml Oral.Susp) 30 ml PO DAILY PRN PRN Reason: Constipation Melatonin (Melatonin 3 Mg Tablet) 6 mg PO BEDTIME PRN PRN Reason: Insomnia Mirtazapine (Mirtazapine 30 Mg Tablet) 30 mg PO BEDTIME [facility] Last Admin: 11/25/24 21:07 Dose: 30 mg Non-Formulary Medication (Lenalidomide [Revlimid]) 10 mg PO DAILY [facility] Ondansetron HCl (Ondansetron Hcl 4 Mg/2 Ml Vial) 4 mg IVPUSH Q8H PRN PRN Reason: Nausea and Vomiting Potassium Chloride (Potassium Chloride Packet 20 Meq Packet) 20 meq PO DAILY [facility] Last Admin: 11/26/24 09:44 Dose: 20 meq Sodium Bicarbonate (Sodium Bicarbonate 650 Mg Tablet) 650 mg PO TID [facility] Last Admin: 11/26/24 15:03 Dose: 650 mg Sodium Chloride (0.9 % Sodium Chloride Flush 3 Ml Syringe) 3 ml IVFLUSH QSHIFT [facility] Last Admin: 11/26/24 15:03 Dose: 3 ml Trazodone HCl (Trazodone Hcl 50 Mg Tablet) 12.5 mg PO BID [facility] Last Admin: 11/26/24 09:43 Dose: 12.5 mg Home Medications ?Medication ?Instructions ?Recorded ?Confirmed ?Last Taken ?Type levothyroxine 75 mcg tablet 75 mcg PO DAILY 10/27/20 11/24/24 11/23/24 History aspirin 81 mg chewable tablet 81 mg PO DAILY 12/16/20 11/24/24 11/23/24 History mirtazapine 30 mg tablet 30 mg PO BEDTIME 12/16/20 11/24/24 11/23/24 History fluoxetine 40 mg capsule 1 cap PO DAILY 05/12/22 11/24/24 11/23/24 History loperamide 2 mg tablet 2 mg PO Q4H PRN Loose Stool 02/25/24 11/24/24 11/23/24 History trazodone 50 mg tablet 12.5 mg PO BID 09/18/24 11/24/24 11/23/24 History lidocaine 5 % topical cream 1 appl topical BID 11/24/24 11/24/24 11/23/24 History omeprazole 20 mg capsule,delayed 20 mg PO DAILY@0630 11/24/24 11/24/24 11/23/24 History release sodium zirconium cyclosilicate 10 10 g PO MO 11/24/24 11/24/24 11/23/24 History gram oral powder packet (Lokelma) Physical Exam Vital Signs: Last Vital Signs Temp 97.4 F 11/26/24 11:21 Pulse 62 11/26/24 11:21 Resp 18 11/26/24 11:21 BP 141/63 H 11/26/24 11:21 Pulse Ox 99 11/26/24 11:21 O2 Del Method Room Air 11/26/24 11:21 BMI result Body Mass Index 27.3 Const Other: General: AOx3, no acute distress Anicteric sclera Moist oral mucosa Resp: CTA bilaterally CVS: S1, S2, RRR GI: +BS, NT, no distention Skin: Warm, dry Neuro: Nonfocal Extremities: No LE edema Psych: Appropriate affect General: No confusion Orientation/consciousness: patient oriented x3 and No confusion Resp Effort & Inspection: normal respiratory effort Cardio Other: Normal peripheral perfusion Skin Other: Warm dry no rash Neuro General: patient oriented x3, no focal motor deficits, CN's II-XI intact bilaterally and No confusion Psych Other: Calm cooperative Results Lab Results 11/26/24 07:38 11/26/24 07:38 Lab results: Chemistry 11/23/24 11/23/24 11/24/24 17:17 20:24 04:55 Sodium 143 143 Potassium 3.6 3.4 Carbon Dioxide 18 L 19 L BUN 18 H 18 H Creatinine 0.94 0.85 Calcium 5.7 L* 6.9 L D 7.0 L Phosphorus 4.1 11/24/24 11/25/24 11/26/24 12:28 07:00 07:38 Sodium 142 143 141 Potassium 4.2 D 4.0 4.3 Carbon Dioxide 20 L 20 L 21 L BUN 15 17 H 16 Creatinine 0.78 0.74 0.79 Calcium 7.4 L 7.5 L 7.8 L Phosphorus Hematology 11/23/24 11/24/24 11/25/24 17:17 04:55 07:00 WBC 6.3 6.2 5.4 Hgb 8.7 L 8.1 L 8.0 L Plt Count 178 D 184 187 11/26/24 07:38 WBC 5.4 Hgb 8.5 L Plt Count 190 Assessment and Plan (1) Prolonged QT interval: Status: Acute (2) Hypomagnesemia: Status: Acute (3) Hypocalcemia: Status: Acute Plan 79-year-old female with a past medical history significant for multiple myeloma, hypothyroidism, hypophosphatemia, who presented to the ED today due to abnormal labs of critically low magnesium and calcium. 1. HypoCa: d/t ongoing Tx with Densumab along with low Vit D and hypoMg all contributing to low Ca; repsonding to PO Ca and Calcitriol 2. HypoMg: d/t diarrhea and use of PPI; ques ongoing urine Mg losses playing a role from prior chemo but htis seems less likely REC: agree with cont Mg and Ca rpelacement and use of calcitriol; repalce ViT D as well ( i ordered the latter) Procedures Date of Service Date of Service: 11/26/24
[2024-11-26] MEDS: Ergocalciferol (Vitamin D2) 1,250 MCG CAPSULE 1250 MCG PO (17:04)
[2024-11-26 19:31] VITALS: BP 160/68; PULSE 58; RESP 16; TEMP 36.9
[2024-11-26] MEDS: Mirtazapine 30 MG TABLET PO (21:47)
[2024-11-26 23:57] VITALS: BP 142/74; PULSE 71; RESP 16; TEMP 36.8; O2SAT 96
--- NOTE | 2024-11-27 | ECG_ITS ---
Test Reason : PROLONG QT Blood Pressure : / mmHG Vent. Rate : 055 BPM Atrial Rate : 055 BPM P-R Int : 126 ms QRS Dur : 076 ms QT Int : 490 ms P-R-T Axes : 025 020 009 degrees QTc Int : 468 ms Sinus bradycardia with occasional Premature ventricular complexes ST & T wave abnormality, consider anterior ischemia Abnormal ECG When compared with ECG of 23-NOV-2024 22:24, No significant change was found Referred By: Jaci Madden Electronically Signed By:KRISTIN ANGEL MD
[2024-11-27 04:00] VITALS: BP 133/73; PULSE 85; RESP 16; TEMP 36.8; O2SAT 95
[2024-11-27] MEDS: Levothyroxine Sodium 75 MCG TABLET PO (06:18)
[2024-11-27 07:48] VITALS: BP 173/66; PULSE 52; RESP 16; TEMP 36.4; O2SAT 100
[2024-11-27 07:55] LABS: Alanine Aminotransferase 30 U/L (0-31); Alkaline Phosphatase 166 U/L (39-117); Anion Gap 10 (12-20); Aspartate Amino Transferase 24 U/L (5-31); Bilirubin Total 0.2 mg/dL (0.0-1.0); Blood Urea Nitrogen 18 mg/dL (9-16); Calcium 8.3 mg/dL (8.4-10.2); Carbon Dioxide 23 mmol/L (22-29); Chloride 111 mmol/L (96-108); Creatinine Clr Calc Pharmacy 44.4; Estimated Glomerular Filt Rate > 60; Glucose Fasting 99 mg/dL (60-99); Magnesium 1.7 mg/dL (1.6-2.6); Sodium 139 mmol/L (135-145); Total Protein 6.7 g/dL (6.5-8.0)
[2024-11-27] MEDS: FLUoxetine HCl 20 MG CAPSULE 40 MG PO (09:06)
[2024-11-27] MEDS: traZODone HCL 50 MG TABLET 12.5 MG PO (09:07)
[2024-11-27] MEDS: Sodium Bicarbonate 650 MG TABLET PO (09:07)
[2024-11-27] MEDS: Aspirin 81 MG TAB.CHEW PO (09:08)
[2024-11-27] MEDS: calcitrioL 0.25 MCG CAPSULE PO (09:08)
[2024-11-27] MEDS: Calcium Carbonate 750 MG TAB.CHEW PO (09:08)
[2024-11-27] MEDS: 0.9 % Sodium Chloride Flush 3 ML SYRINGE IVFLUSH (09:09)
[2024-11-27 11:47] VITALS: BP 136/55; PULSE 77; RESP 15; TEMP 36.4; O2SAT 100
--- NOTE | 2024-11-27 12:53 | MHC.CM.PN ---
IMM 11/27/24, Pt has been medically cleared for DC, her grand dtr will pick her up to bring her home, plan is to resume [employer] services.
--- NOTE | 2024-12-07 10:25 | PM.DS ---
DS: Providers Provider Date of Service: 11/27/24 Date of admission: 11/24/24 08:50 Date of discharge: 11/27/24 Primary care physician: Maria R Rockwell MD Consults: 11/26/24 11:52 Consult to Nephrology Routine Consulting Provider: [facility] Reason for consultation: hypocalcemia and low mg Has provider been notified: No DS: Diagnosis Discharge Diagnosis (1) Prolonged QT interval: Status: Acute (2) Hypomagnesemia: Status: Resolved (3) Hypocalcemia: Status: Resolved DS: Summary Hospital Course Hospital Course: History of presenting illness: Attending physician on admission: Poonam Max Chief Complaint: abnormal labs Patient is an 79-year-old female with a past medical history significant for multiple myeloma, hypothyroidism, hypophosphatemia, who presented to the ED today due to abnormal labs of critically low magnesium and calcium. She is asymptomatic and denies any chest pain, shortness of breath, nausea, vomiting or muscle cramping. She does report chronic diarrhea that has not changed from baseline and denies any urinary symptoms. Hospital course: 79-year-old female with a past medical history significant for multiple myeloma, hypothyroidism, hypophosphatemia, who presented to the ED due to abnormal labs of critically low magnesium and calcium with no associated symptoms of chest pain, shortness of breath, nausea, vomiting or muscle cramping, patient admitted to medical floor with a diagnosis of following issues. Severe acute on chronic hypocalcemia, calcium 5.7 on arrival, treated with total 8g of calcium gluconate in ED, calcium improved to 7.8, further workup showed PTH 121 and low 25 hydroxy of 17, it was felt that hypocalcemia is multifactorial due to hypomagnesemia, low albumin,and Denusamab receiving from Oncology, treated with cholecalciferol, calcium ,magnesium and protein supplements, calcium improved patient seen by nephrology they agreed with the above treatment plan and added vitamin-D as well, since patient calcium and magnesium have normalized therefore she is being discharged home with recommendations to follow labs in 1 week and have continued outpatient follow-up with Hematology Oncology and Nephrology. Due to recurrent hypo magnesemia PPI has been discontinued and patient placed on Pepcid, patient was also on Lokelma and potassium both have been discontinued. Multiple myeloma with chronic stable anemia followed by Dr. Dukes on Revlimid Hypothyroidism continue levothyroxine. And he came running History of erosive gastritis/duodenitis with positive H pylori on PPI since patient asymptomatic and likely treated for H pylori can DC Prilosec and placed on Pepcid recommend outpatient follow-up with PCP for recurrent symptoms. Time Attestation Discharge Coordination Time (in mins): 38 Quality: Safe Use of Opioids Does Pt have an Active Cancer Diagnosis on the Problem List?: No Quality: Stroke Does the patient have a stroke diagnosis?: No Physical Exam Vital Signs: Vital Signs: Last Vital Signs Temp 97.6 F 11/27/24 11:47 Pulse 77 11/27/24 11:47 Resp 15 11/27/24 11:47 BP 136/55 L 11/27/24 11:47 Pulse Ox 100 11/27/24 11:47 O2 Del Method Room Air 11/27/24 11:47 BMI result Body Mass Index 27.3 Const: Other: General: AOx3, no acute distress Anicteric sclera Moist oral mucosa Resp: CTA bilaterally CVS: S1, S2, RRR GI: +BS, NT, no distention Skin: Warm, dry Neuro: Non focal Extremities: No LE edema Psych: Appropriate affect DS: Data Data Completed and Pending Completed studies during hospitalization [Text1]: Procedures Insertion of Infusion Device into Superior Vena Cava, Percutaneous Approach (02/25/24) Transfusion of Nonautologous Red Blood Cells into Peripheral Vein, Percutaneous Approach (02/25/24) Ultrasonography of Superior Vena Cava, Guidance (02/25/24) Discharge Plan Discharge Anticipated Discharge Date/Time: 11/27/24 11:13 Patient Disposition: Home, Self-Care Discharge Diagnosis: Acute hypocalcemia Acute hypo magnesemia Chronic diarrhea Referrals: Physician,Unknown J [Physician] - 1 Week Discharge Medications: New calcitriol 0.25 mcg Capsule 0.25 mcg PO DAILY Qty: 7 0RF famotidine [Pepcid] 20 mg tablet 20 mg PO DAILY Qty: 30 0RF Continued levothyroxine 75 mcg tablet 75 mcg PO DAILY lenalidomide [Revlimid] 10 mg Capsule 10 mg PO DAILY Qty: 14 0RF Rx Instructions: swallow whole with glass of water; do not open, crush, chew , break, or dissolve. [id number] mirtazapine 30 mg tablet 30 mg PO BEDTIME aspirin 81 mg tablet,chewable 81 mg PO DAILY fluoxetine 40 mg capsule 1 cap PO DAILY calcium carbonate [Oyster Shell Calcium 500] 500 mg calcium (1,250 mg) Tablet 500 mg PO TID 30 Days Qty: 90 0RF ondansetron 4 mg tablet,disintegrating 4 mg PO Q8H PRN (Reason: nausea and vomiting) Qty: 5 0RF trazodone 50 mg tablet 12.5 mg PO BID sodium bicarbonate 650 mg Tablet 650 mg PO TID Qty: 90 0RF magnesium oxide 250 mg magnesium tablet 250 mg PO BID Qty: 60 0RF lidocaine 5 % cream 1 appl topical BID loperamide 2 mg Tablet 2 mg PO Q4H PRN (Reason: Loose Stool) Rx Instructions: administer after each loose stool until symptoms controlled; do not exceed 8 mg per 24 hrs Discontinued potassium chloride 20 mEq Packet 20 meq PO DAILY Qty: 90 2RF omeprazole 20 mg capsule,delayed release(DR/EC) 20 mg PO DAILY@0630 Lokelma 10 gram powder in packet 10 g PO MO No Action lenalidomide [Revlimid] 10 mg Capsule 10 mg PO DAILY Qty: 14 0RF Rx Instructions: swallow whole with glass of water; do not open, crush, chew , break, or dissolve. [id number] Discharge Orders: Discharge Order (Routine); Ordered 11/27/24 Ordered By: Jaci Madden Diet: Advance to usual diet Activity on Discharge: As tolerated Stand Alone Forms: Patient Portal Discharge page Print Language: South African Other Ambulatory Orders: Basic Metabolic Panel Fasting (Routine) Timeframe: 20241202 Facility: [facility] - Location: Laboratory Ordered By: Jaci Madden Calcium (Routine) Timeframe: 20241202 Facility: [facility] - Location: Laboratory Ordered By: Jaci Madden Magnesium (Routine) Timeframe: 20241202 Facility: [facility] - Location: Laboratory Ordered By: Jaci Madden Care Plan Goals: Hypocalcemia improved continue calcium replacement Hypo magnesemia continue magnesium replacement Take calcitriol 1 tablet for 7 days Discontinue Prilosec since it cause hypo magnesemia Discontinue potassium replacement and Lokelma Follow labs as ordered Take high-protein diet including chicken /yogurt and Lentils Health Concerns: Chronic diarrhea avoid high-fiber diet. Plan of Treatment: Outpatient follow-up with primary care physician and with Dr. Dukes call for appointment Assessment: As above Discharge Date/Time: 11/27/24 14:02
== END 2024-11-27 14:02 | disposition home or self-care (01) | DRG 641 ==
LOC: HO.ED 23:41 → HO.EDOVER 11-24 00:35 → HO.IMC 11-24 16:38
PROVIDERS: Hospitalist; Physician Assistant Medical; Admitting Provider Student in an Organized Health Care Education/Training Program; Emergency Provider Emergency Medicine; PCP Internal Medicine; Visit Provider Hospitalist
DX: E83.51 Hypocalcemia (principal); C90.00 Multiple myeloma not having achieved remission; E03.9 Hypothyroidism, unspecified; E83.42 Hypomagnesemia; R94.31 Abnormal electrocardiogram [ECG] [EKG]; Z87.891 Personal history of nicotine dependence; Z79.82 Long term (current) use of aspirin; Z79.899 Other long term (current) drug therapy
CPT/HCPCS: 36415; 80048; 80053; 82306; 82310; 82607; 82746; 83735; 83970; 84100; 84443; 85025; 85027; 93005; 99222; 99285; J0613; J1650; J3475

== ENCOUNTER → 2024-11-23 17:16 | Outpatient (BNV) | payer MEDICARE, SELFPAY | PROVIDERS: Admitting Provider Student in an Organized Health Care Education/Training Program; Emergency Provider Emergency Medicine; Visit Provider Internal Medicine Cardiovascular Disease | DX: R94.31 Abnormal electrocardiogram [ECG] [EKG] (principal); R00.1 Bradycardia, unspecified; I49.3 Ventricular premature depolarization | CPT/HCPCS: 93010 ==

== ENCOUNTER → 2024-11-24 00:31 | Outpatient (BNV) | payer MEDICARE, SELFPAY | PROVIDERS: Admitting Provider Student in an Organized Health Care Education/Training Program; Emergency Provider Emergency Medicine; Visit Provider Physician Assistant | DX: E83.51 Hypocalcemia (principal); E83.42 Hypomagnesemia; R94.31 Abnormal electrocardiogram [ECG] [EKG] | CPT/HCPCS: 99223; 99231; 99232; 99499 ==

== ENCOUNTER 2024-11-24 08:50 | Outpatient (BNV) | payer MEDICARE, SELFPAY | END 2024-11-27 11:23 | PROVIDERS: Admitting Provider Student in an Organized Health Care Education/Training Program; Emergency Provider Emergency Medicine; PCP Internal Medicine; Visit Provider Internal Medicine Cardiovascular Disease | DX: R00.1 Bradycardia, unspecified (principal); R94.31 Abnormal electrocardiogram [ECG] [EKG] | CPT/HCPCS: 93010 ==

== ENCOUNTER 2025-01-06 12:09 | Outpatient (REF) | payer MEDICARE, SELFPAY ==
--- OUTSIDE RECORDS SUMMARY | 2025-01-06 13:47 | XMS_ITS | Encounter Summary ---
Author Organization [employer] Address [address] [facility] [address] [place] [address] Care Team Providers Care Director Pharmaceutical Name Role Phone Erika Morris MD Primary Care Provider + Reason for Visit * Reason Onset Date Comments Durable Medical Equipment 12/23/2024 Encounter Details Date Type Department Care Team ([facility] st Contact Info) Description 12/23/2024 Telephone [facility] MEDICINE [address] [place], [place] [phone] Erika Morris MD [address] [place], [place] [phone] Durable Medical Equipment Social History Tobacco Use Types Packs/Day Years Used Date Smoking Tobacco: Every Day Cigarettes Smokeless Tobacco: Never Alcohol Use Standard Drinks/Week Comments Not Currently 0 (1 standard drink = 0.6 oz pur e alcohol) once a year Depression Answer Date Recorded Patient Health Questionnaire-9 Score 14 03/28/2023 Housing Stability Answer Date Recorded What is your housing situation today? I have jerrica piedra 09/11/[address] you li ve. Do you have problems with any of the following? None of the above 09/11/2023 Food Insecurity Answer Date Recorded Within the past 12 months, y ou worried that your food would run out before you got money to buy more: Never True 09/11/2023 Within the past 12 months,th e food you bought just didn't last and you didn't have enough money to get more: Never True Transportation Answer Date Recorded In the past 12 months, has l ack of transportation kept you from medical appts, meetings, work or from getting things needed for daily living? No 09/11/2023 Utilities Answer Date Recorded In the past 12 months, has t he electric, gas, oil or water company threatened to shut off services in your home? No 09/11/2023 Depression Answer Date Recorded Patient Health Questionnaire-2 Score 5 03/28/2023 Comments Unknown Sex and Gender Information Value Date Recorded Sex Assigned at Female 09/24/2022 10:29 AM EDT Legal Sex Female 10:29 AM EDT Gender Identity Female 09/24/2022 10:29 AM EDT Sexual Orientation Choose not to disclose 2021 10:29 AM EDT documented as of this encounter Miscellaneous Notes * Telephone Encounter - Makenna Carpio MA - 12/23/2024 10:35 AM EST DME for boost, wipes, and gloves initiated. Faxed to [facility] ([phone]) documented in this encounter Plan of Treatment Not on file documented as of this encounter Visit Diagnoses Not on filedocumented in this encounter Additional Health Concerns Assessment Noted Time PHQ-9 Depression Total Score: 14 023 10:41 AM EDT documented as of this encounter Care Teams Director Pharmaceutical Relationship Specialty Start Date End Date Erika Morris MD [address] [place] [id number] PCP - General Family Medicine 08/07/18 Héctor YUAN 10/19/24 documented as of this encounter
--- OUTSIDE RECORDS SUMMARY | 2025-01-06 13:47 | XMS_ITS | Encounter Summary ---
Author Organization [employer] Address [address] [facility] [address] [place] [address] Care Team Providers Care Power Shear Operator Name Role Phone Erika Morris MD Primary Care Provider + Encounter Details Date Type Department Care Team (Late st Contact Info) Description 12/23/2024 1:00 PM EST Telemedicine [facility] MEDICINE [address] [place], [place] [phone] Erika Morris MD [address] [place], [place] [phone] Chronic diarrhea (Primary Dx); Incontinence of feces with fecal urgency; Hypocalcemia; Hypomagnesemia Social History Tobacco Use Types Packs/Day Years [...] AM EDT documented as of this encounter Progress Notes * Erika Morris MD - 12/23/2024 1:00 PM EST SUBJECTIVE: Altagracia Moe is a 79 y.o. year old female who presents for follow up hospital visit. Patient was originally scheduled for an office visit but she was unable to make it due to acute episode of diarrhea, it was converted to a televisit. I spoke with patient's daughter who was with the patient at the time at home, patient reported feeling okay but wanted her daughter to talk in her place. Patient admitted to [facility] on 11/24/2024 due to low magnesium and calcium. She was given IVF and electrolytes were replaced. Started her on VitD supplementation. She was discharged on 11/27/2024 to FU with oncology as it is believed that electrolyte imbalances may be triggered by Denosumab that she receives for MM. Protonics was also DC, may affect magnesium levels and she was put on Pepcid. Acute Concerns: Patient has been doing well since hospital discharge, appetite is good he is drinking fluids and urine is mostly clear. She has not had any fever no sore throat no cough and she has occasional episodes of diarrhea until this morning when she has had 2 episodes of liquid stools which they blame ontonewly restarted chemotherapy (denosumab ?Revlimid?). She denies rectal bleeding, melena and feels weak now, she reports she stopped potassium I potassium supplementation. They are still waiting for prescription of pull-ups to be delivered, it is not clear if insurance will cover it. They also awaiting an increase in [employer] hours as they're short in hours of care as she required almost 6 to 8 hours/day coverage due to weakness, limitation for transfers and assistance onall ADLs including cooking, grocery shopping and laundry. Patient does not have VNA after hospitalization, family has been giving her the medications but daughter does not have the medications in front of her at this time. Social History Social History Narrative Not on file Patient Active Problem List Diagnosis Gait disturbance Hypothyroidism (acquired) Acute respiratory failure ([facility]) Adenomatous polyp of colon Anemia Arthritis of hip Arthritis of knee Atypical chest pain Bradycardia Chronic diarrhea Chronic gastritis COVID-19 Decrease in appetite Duodenitis Gastroesophageal reflux disease Grief H. pylori duodenitis Hypocalcemia Incontinence of feces with fecal urgency Injury of kidney Mood disorder ([facility]) Multiple myeloma ([facility]) Nausea Pneumonia due to COVID-19 virus Primary insomnia Recurrent major depression in partial remission ([facility]) Stage 3 chronic kidney disease ([facility]) Tendinitis of left rotator cuff Tendinitis of right rotator cuff Dietary counseling Osteoarthritis of cervical spine Gingivitis, chronic Long toenail Poor dentition Osteomyelitis of maxilla Metabolic encephalopathy Hypercalcemia Mixed stress and urge urinary incontinence Hyperkalemia Cigarette nicotine dependence without complication Hypomagnesemia Weakness Chronic left shoulder pain Pressure injury of left buttock, stage 1 Acute UTI Muscle spasm of back No family history on file. Review of Systems Constitutional: Positive for fatigue. Negative for chills and fever. HENT: Negative for congestion, ear pain, nosebleeds, rhinorrhea, sinus pressure, sore throat and trouble swallowing. Eyes: Negative for pain and discharge. Respiratory: Negative for cough, chest tightness and shortness of breath. Cardiovascular: Negative for chest pain, palpitations and leg swelling. Gastrointestinal: Positive for diarrhea. Negative for abdominal pain, blood in stool, constipation and nausea. Endocrine: Negative for polydipsia and polyuria. Genitourinary: Negative for dysuria, frequency, genital sores, pelvic pain and vaginal discharge. Musculoskeletal: Negative for back pain and neck pain. Skin: Negative for rash. Allergic/Immunologic: Negative for environmental allergies. Neurological: Positive for light-headedness. Negative for dizziness, seizures, weakness and headaches. Hematological: Negative for adenopathy. Psychiatric/Behavioral: Negative for agitation, behavioral problems, self-injury and suicidal ideas. OBJECTIVE: There were no vitals filed for this visit. 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 Advised to increase Imodium to 3 times per day during episodes of acute diarrhea, increase hydration with Gatorade, Crystal light Continue sodium bicarbonate for now and will reevaluate after BMP is drawn. Follow-up with oncology and consider to consider adjustment of chemotherapy if possible. Relevant Orders Basic Metabolic Panel Magnesium TSH with Reflex to Free T4 Incontinence of feces with fecal urgency Related to chronic deconditioning and recurrent chronic diarrhea. Patient to continue wearing pull-ups and needs incontinence supplies for her bed. Advised regarding increase hydration and continue Kegel exercises as needed. Hypocalcemia Corrected with calcium gluconate, continue calcium supplementation and vitamin D. Follow-up with oncology to reevaluate current chemotherapy. Relevant Orders Basic Metabolic Panel TSH with Reflex to Free T4 Hypomagnesemia Secondary to diarrhea. Repeat BMP, will try for home service lab to draw test. Continue p.o. hydration, hold on Protonix and continue Pepcid, follow-up with oncology to reevaluate continuation of chemotherapy. Relevant Orders Magnesium Follow Up: Current Outpatient Medications on File Prior to Visit Medication Sig Dispense Refill Acetaminophen Extra Strength 500 MG tablet TAKE 1 TABLET BY MOUTH EVERY 6 HOURS NEEDED 90 tablet0 aspirin (Aspirin Low Dose) 81 MG chewable tablet CHEW 1 TABLET BY MOUTH ONCE DAILY 90 tablet 3 calcitriol (Rocaltrol) 0.25 MCG capsule Take 1 capsule by mouth Once per day. Control Gel Formula Dressing (DuoDERM CGF Dressing) misc Apply to affected area 1x/d 30 each 0 famotidine (Pepcid) 20 MG tablet Take 1 tablet by mouth Once per day. FLUoxetine (PROzac) 40 MG capsule TAKE 1 CAPSULE BY MOUTH EVERY DAY 30 capsule 11 lenalidomide (Revlimid) 10 MG capsule Take 1 capsule by mouth Once per day. levothyroxine (Synthroid, Levoxyl) 100 MCG tablet TAKE 1 TABLET BY MOUTH EVERY DAY BEFORE [id number] tablet 2 Lidocaine 4 % patch Use 1 patch /d prn on affected area 30 patch 0 Lidocaine, Anorectal, 5 % cream apply topically to the affected area(s) twice daily loperamide (Anti-Diarrheal) 2 MG tablet Take 2 tablets (4 mg) by mouth if needed in the morning, atnoon, and at bedtime for diarrhea. 90 tablet 0 mirtazapine (Remeron) 30 MG tablet TAKE 1 TABLET BY MOUTH EVERY DAY AT BEDTIME 30 tablet 11 Oyster Shell Calcium 500 MG tablet Take 1 tablet (500 mg) by mouth 3 times daily. 270 tablet 3 Simethicone (Gas-Ex) 125 MG tablet tablet Take 1 tablet (125 mg) by mouth if needed in the morning,at noon, in the evening, and at bedtime (1 tab po qid prn >2 loose stools, max 4d/stop for constipation). 90 tablet 3 sodium bicarbonate 650 MG tablet Take 1 tablet (650 mg) by mouth 3 times daily. 270 tablet 3 traZODone (Desyrel) 50 MG tablet Take 12.5mg (0.25 tablet) PO bid 30 tablet 11 No current facility-administered medications on file prior to visit. 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 Advised to increase Imodium to 3 times per day during episodes of acute diarrhea, increase hydration with Gatorade, Crystal light Continue sodium bicarbonate for now and will reevaluate after BMP is drawn. Follow-up with oncology and consider to consider adjustment of chemotherapy if possible. * Assessment & Plan Note - Erkia Morris MD - 12/23/2024 8:16 PM EST Associated Problem(s): Incontinence of feces with fecal urgency Related to chronic deconditioning and recurrent chronic diarrhea. Patient to continue wearing pull-ups and needs incontinence supplies for her bed. Advised regarding increase hydration and continue Kegel exercises as needed. * Assessment & Plan Note - Erika Morris MD - 12/23/2024 8:15 PM EST Associated Problem(s): Hypocalcemia Corrected with calcium gluconate, continue calcium supplementation and vitamin D. Follow-up with oncology to reevaluate current chemotherapy. * Assessment & Plan Note - Erika Morris MD - 12/23/2024 8:14 PM EST Associated Problem(s): Hypomagnesemia Secondary to diarrhea. Repeat BMP, will try for home service lab to draw test. Continue p.o. hydration, hold on Protonix and continue Pepcid, follow-up with oncology to reevaluate continuation of chemotherapy. documented in this encounter Plan of Treatment Scheduled Orders Name Type Priority Associated Diagnoses Orde r Schedule Basic Metabolic Panel Lab Routine Chronic diarrhea Hypocalcemia Expected: 12/23/2024 (Approximate), Expires: 12/23/2025 Magnesium Lab Routine Chronic diarrhea Hypomagnesemia Expected: 12/23/2024, Expires: 12/23/2025 TSH with Reflex to Free T4 Lab Routine Chronic diarrhea Hypocalcemia Expected: 12/23/2024 (Approximate), Expires: 12/23/2025 documented as of this encounter Visit Diagnoses Diagnosis Chronic diarrhea- Primary Diarrhea Incontinence of feces with fecal urgency Hypocalcemia Hypomagnesemia Disorders of magnesium metabolism documented in this encounter Additional Health Concerns Assessment Noted Time PHQ-9 Depression Total Score: 14 023 10:41 AM EDT documented as of this encounter Care Teams Power Shear Operator Relationship Specialty Start Date End Date Erika Morris MD [address] [place] [id number] PCP - General Family Medicine 08/07/18 Héctor YUAN 10/19/24 documented as of this encounter
--- OUTSIDE RECORDS SUMMARY | 2025-01-06 13:47 | XMS_ITS | Clinical Summary ---
Author Organization [employer] Address [address] [place] [address] Care Team Providers Care Electrical Prospecting Engineer Name Role Phone Erika Morris MD Primary Care Provider + Allergies No known active allergies Medications * This document contains information received from the source organization and may not represent a complete record from that organization. Acetaminophen Extra Strength 500 MG tabletIndicatio ns:Tendinitis of left rotator cuff TAKE 1 TABLET BY MOUTH EVERY 6 HOURS NEEDED 90 tablet 10/22/20 23 Active lenalidomide (Revlimid) 10 MG capsule Take 1 capsule by mouth Once per day. Active traZODone (Desyrel) 50 MG tablet Take 12.5mg (0.25 tablet) PO bid 30 tablet 11 07/09/20 24 Active Lidocaine 4 % patch Use 1 patch /d prn on affected area 30 patch 07/09/20 24 Active aspirin (Aspirin Low Dose) 81 MG chewable tablet CHEW 1 TABLET BY MOUTH ONCE DAILY 90 tablet 3 08/10/20 24 Active FLUoxetine (PROzac) 40 MG capsule TAKE 1 CAPSULE BY MOUTH EVERY DAY 30 capsule 11 08/10/20 24 Active Control Gel Formula Dressing (DuoDERM CGF Dressing) misc Apply to affected area 1x/d 30 each 09/08/20 24 Active levothyroxine (Synthroid, Levoxyl) 100 MCG tablet TAKE 1 TABLET BY MOUTH EVERY DAY BEFORE BREAKFAST 30 tablet 2 10/05/20 24 Active sodium bicarbonate 650 MG tablet Take 1 tablet (650 mg) by mouth 3 times daily. 270 tablet 3 10/28/20 24 025 Active Oyster Shell Calcium 500 MG tablet Take 1 tablet (500 mg) by mouth 3 times daily. 270 tablet 3 10/28/20 24 025 Active loperamide (Anti-Diarrheal ) 2 MG tablet Take 2 tablets (4 mg) by mouth if needed in the morning, at noon, and at bedtime for diarrhea. 90 tablet 11/23/20 24 025 Active mirtazapine (Remeron) 30 MG tabletIndicatio ns:Primary insomnia TAKE 1 TABLET BY MOUTH EVERY DAY AT BEDTIME 30 tablet 11 11/23/20 24 Active Simethicone (Gas-Ex) 125 MG tablet tabletIndicatio ns:Gastroesopha geal reflux disease, unspecified whether esophagitis present Take 1 tablet (125 mg) by mouth if needed in the morning, at noon, in the evening, and at bedtime (1 tab po qid prn >2 loose stools, max 4d/stop for constipation ). 90 tablet 3 11/23/20 24 Active calcitriol (Rocaltrol) 0.25 MCG capsule Take 1 capsule by mouth Once per day. 11/27/19 25 Active famotidine (Pepcid) 20 MG tablet Take 1 tablet by mouth Once per day. 11/27/19 25 Active Lidocaine, Anorectal, 5 % cream apply topically to the affected area(s) twice daily 11/24/20 24 Active ibuprofen 600 MG tablet Take 1 tablet (600 mg) by mouth every 8 (eight) hours if needed for mild pain or moderate pain. 60 tablet 01/06/20 25 025 Active Lidocaine 5 % creamIndication s:Muscle spasm of back Apply topically bid 30 g 3 11/12/20 24 025 Discontinued(Me d list cleanup (will not trigger notification to Pharmacy)) omeprazole (PriLOSEC) [address] capsuleIndicati ons:Gastroesoph ageal reflux disease, unspecified whether esophagitis present Take 1 capsule (20 mg) by mouth before breakfast. Do not crush or chew. 90 capsule 1 11/23/20 24 025 Discontinued(Me d list cleanup (will not trigger notification to Pharmacy)) Active Problems Problem Noted Date Diagnosed Date Urinary frequency 01/06/2025 Assessment & Plan (01/06/2025 1:13 PM EST): Rule out UTI or DM. Order labs and FU results. Overweight 01/06/2025 Assessment & Plan (01/06/2025 1:17 PM EST): Patient has been losing weight due to diarrhea and chemotherapy. Advised to use Boost or nutritional supplement once per day, unfortunately not covered by insurance. Encounter for screening for diabetes mellitus Assessment & Plan (01/06/2025 1:18 PM EST): Will order A1c due to increased urinary frequency. Acute UTI 11/12/2024 Assessment & Plan (11/12/2024 1:20 PM EST): Pt with confusion similar to previous UTI. Pt is alert and orientated, confusion mild and noted by caregivers but not obviously noticeable on evalaution. -Urinalysis and urine culture sent to the lab -Empiric antibiotics started -Potential adverse effects of the medication reviewed -Discussed strategies to prevent future infections: Increase fluids. Avoid bladder irritants. -Report fever, chills, worsening symptoms or abdominal/flank pain -Advised to seek medical attention if no improvement or worsening of symptoms -ER precautions reviewed. Muscle spasm of back 11/12/2024 Assessment & Plan (11/12/2024 1:21 PM EST): -Mild. Trial of lidocaine cream, gentle massage and warm compress. -Caregivers and pt agree with plan Hypomagnesemia 09/08/2024 Assessment & Plan (12/23/2024 8:14 PM EST): Secondary to diarrhea. Repeat BMP, will try for home service lab to draw test. Continue p.o. hydration, hold on Protonix and continue Pepcid, follow-up with oncology to reevaluate continuation of chemotherapy. Assessment & Plan (09/08/2024 2:43 PM EDT): - repeat electrolytes - increase PO hydration with Pedalyte, Gatorade, Crystal Light Weakness 09/08/2024 Assessment & Plan (09/08/2024 2:44 PM EDT): - most likely multi-factorial due to infection, chronic illness (MM), and recent infection - r/o UTI today - order labs, will call PRN if pt needs antibiotics for UTI - order PT/OT evaluation Chronic left shoulder pain 09/08/2024 Assessment & Plan (09/08/2024 2:30 PM EDT): - due to OA and miltiple myeloma, unclear if she has fracture/dislocation status post fall last week - order x-ray of the shoulder, take Tylneol PRN and will f/u Pressure injury of left buttock, stage 1 024 Assessment & Plan (09/08/2024 2:42 PM EDT): - apparently status post fall - use Clotrimazole cream + zinc oxide (barrier cream) on affected area twice per day - recommended to cover with Duoderm and VNA will check until fully healed - recommended change in position and will start PT to increase safe ambulation Cigarette nicotine dependence without complicati on 08/13/2024 Assessment & Plan (08/13/2024 3:16 PM EDT): Smoking occasionally. Start nicotine patch 7 mg + nicotine lozenges prn. Osteomyelitis of maxilla 07/09/2024 Assessment & Plan (08/13/2024 3:11 PM EDT): Doesn't seem to have active infection at this time, however she is advised to follow up with oral maxillary surgeon. Assessment & Plan (07/09/2024 2:28 PM EDT): Apparently resolved with IV antibiotics. Pt needs to follow up with dental and Maxillary Osteomyelitis surgery to prevent further episodes and complete POC. 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 Mental status is significantly improved, will continue to treat depression and monitor electrolytes closely. Hypercalcemia 07/09/2024 Mixed stress and urge urinary incontinence 07/09 Assessment & Plan (09/08/2024 3:03 PM EDT): - check UA today, r/o UTI, will treat accordingly -encouraged to use bedside commode and Pull-Ups as needed. Assessment & Plan (07/09/2024 2:41 PM EDT): Pt should have bedside commode, I advised her to use it as much as she can to prevent accidents at home. She can wear pull ups. Hyperkalemia 07/09/2024 Assessment & Plan (07/09/2024 3:33 PM EDT): It was persistent at the SNF. Will continue on lokelma 10g bid BIW, check BMP today and in 2w, may need to adjust as needed or DC Osteoarthritis of cervical spine 07/04/2023 Assessment & Plan (07/04/2023 11:46 AM EDT): continue oxycodone daily counseled to avoid holding the medication Gingivitis, chronic 07/04/2023 Assessment & Plan (07/04/2023 11:48 AM EDT): s/p antibiotics, has recurrent purulent discharge from mandible pt to be seen by dentsit JOSHUA, needs teeth to be pulled out Recomended soft to liquid diet for now, will prescribe a nutritional supplement either Ensure or Boost Long toenail 07/04/2023 Assessment & Plan (07/04/2023 11:45 AM EDT): Refer to podiatry Poor dentition 07/04/2023 Dietary counseling 03/28/2023 Assessment & Plan (03/28/2023 2:06 PM EDT): will refer to dietitian for evaluation of nutritional supplement due to patient's absent teeth and potential for malnutrition Gait disturbance 11/01/2022 Assessment & Plan (11/23/2024 12:36 PM EST): Related to OA + MM infiltration + the conditioning from multiple hospitalizations. Advised to use walker at home as much as needed, she has DME at home to prevent falls. 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 She will use transport wheelchair for longer transfers. Assessment & Plan (08/13/2024 3:13 PM EDT): Will send PT at home as gait has deteriorated since SNF discharge. Discussed with pt and ELEMENTARY SCHOOL MUSIC TEACHER/daughter regarding full precautions. Adenomatous polyp of colon 11/01/2022 Anemia 11/01/2022 Arthritis of hip 11/01/2022 Assessment & Plan (08/13/2024 3:10 PM EDT): Needs support for ambulation, uses walker and wheelchair if needed. Advised to avoid using wheelchair if she can. Assessment & Plan (07/09/2024 2:33 PM EDT): Significant, worsen by MM Advised to use walker for ambulation at all time, will order home PT and home safety evaluation. Arthritis of knee 11/01/2022 Assessment & Plan (07/04/2023 11:46 AM EDT): Cousneled to walk with a cane, new prescription for a cane sent to DME supplier use tylenol and oxycodone PRN Atypical chest pain 11/01/2022 Bradycardia 11/01/2022 Chronic diarrhea 11/01/2022 Assessment & Plan (12/23/2024 8:28 PM EST): Most likely malabsorption from chemotherapy, will redraw [...] to consider adjustment of chemotherapy if possible. Assessment & Plan (11/23/2024 12:30 PM EST): Most likely mal absorption due to chemotherapy with xxxx. Pt is hydrated and doing well with Loperamide PRN. Order BMP and electrolytes and replace as needed. Continue sodium bicarbonate TID. Assessment & Plan (07/04/2023 11:47 AM EDT): See above. Chronic gastritis 11/01/2022 COVID-19 11/01/2022 Decrease in appetite 11/01/2022 Duodenitis 11/01/2022 Assessment & Plan (03/28/2023 2:11 PM EDT): seems to be controlled, s/p egd 2019 DC omeprazole and continue Tums TID only counseled regarding small in fraction meals, avoid NSAIDS FU in 1 month to see if she tolerates being off PPIs Gastroesophageal reflux disease 11/01/2022 Assessment & Plan (11/23/2024 12:32 PM EST): Use Omeprazole PRN only. Advised to have small in fraction meals. Grief 11/01/2022 H. pylori duodenitis 11/01/2022 Hypocalcemia 11/01/2022 Overview (01/28/2023): Sec to denosumab (helf on/off)for MM On Tums tid Assessment & Plan (12/23/2024 8:15 PM EST): Corrected with calcium gluconate, continue calcium supplementation and vitamin D. Follow-up with oncology to reevaluate current chemotherapy. Assessment & Plan (07/09/2024 3:15 PM EDT): Issue is recurrent, related to MM treatment Check electrolytes and restart Revlimid if indicated (will check with Dr. Dukes prior to start of medication) Incontinence of feces with fecal urgency 022 Assessment & Plan (01/06/2025 1:15 PM EST): Triggered by episodes of diarrhea, secondary to chemotherapy. Patient is doing better on Imodium 4mg TID PRN Reminded her to stay hydrated and check labs today. Assessment & Plan (12/23/2024 8:16 PM EST): Related to chronic deconditioning and recurrent chronic diarrhea. Patient to continue wearing pull-ups and needs incontinence supplies for her bed. Advised regarding increase hydration and continue Kegel exercises as needed. Assessment & Plan (11/23/2024 12:40 PM EST): Most residual from conditioning/recurrent hospitalizations due to diarrhea. Pt will continue doing kegels exercises, use bedside commode as much as possible and will prescribe pull-ups to use on PRN basis (also needs prescription for incontinence supplies). Assessment & Plan (07/04/2023 11:47 AM EDT): incontinent of feces, longstanding needs to use pullups recommended protective skin barrier/zinc oxide Assessment & Plan (03/28/2023 2:12 PM EDT): pt has chronic diarrhea that can exacerbate condition recommended bulking forming agents and use immodium PRN r/o infectious diarrhea will obtain notes from last GI appointment in 2019. Injury of kidney 11/01/2022 Nausea 11/01/2022 Primary insomnia 11/01/2022 Assessment & Plan (11/23/2024 12:30 PM EST): Refill for Mirtazapine QHS + Trazodone BID PRN anxiety. Recurrent major depression in partial remission 11/01/2022 Assessment & Plan (08/13/2024 3:15 PM EDT): She is doing better but still using nicotine to cope w/anxiety. Discussed to pt and daughter about recurring issue with smoking. Advised to look for adult home day program, not interested at this time. Use Trazodone 25 mg BID prn anxiety, continue Fluoxetine same dose. Assessment & Plan (07/09/2024 3:16 PM EDT): Likely exacerbated by recent hospital admission. Increase Fluoxetine to mg daily, continue Mirtazapine at bedtime. Will consider psychiatry consult at future appts Assessment & Plan (05/14/2023 9:08 AM EDT): Assessment: Patient presents with not feeling depressed. She sleeps well with the medication, appetite is poor but she smoke marijuana to help increase it, she has interests (she enjoys watching TV and movies), and she feels good about her self. She denies SI/HI. Altagracia reports no history of psychiatric hospitalizations, self-harm behaviors, or trauma. She reports feeling anxious in the context of losing her partner two years ago to Covid. Patient will benefit from OP therapy referral for support. At this time Altagracia Moe meets criteria for Visit Diagnoses: Problem List Items Addressed This Visit Other Recurrent major depression in partial remission (CMS/[facility], [facility]) Patient ready to address current needs Yes Strengths include motivation to seek behavioral health service PLAN: 1. Follow up with C: Not recommended for follow-up 2. Patient goal is to engage in OP therapy 3. Behavioral Recommendations a. Patient will engage in OP therapy once established b. Patient may request to speak with a [facility] during next PCP appointment, if needed. Assessment & Plan (03/28/2023 2:09 PM EDT): pt has difficulty coping with worsening chronic conditions and loss of her long- term partner continue fluoxetine 40 mg + mirtazapine refer to team for counseling pt feels safe at home and is able to reach out for safety Stage 3 chronic kidney disease 11/01/2022 Assessment & Plan (03/28/2023 2:12 PM EDT): secondary to MM Check GFR and FU with me next month Tendinitis of left rotator cuff 11/01/2022 Assessment & Plan (03/28/2023 2:13 PM EDT): has some lytic lesions, stable + OA Tendinitis of right rotator cuff 01/07/2019 Hypothyroidism (acquired) 07/24/2017 Assessment & Plan (11/23/2024 12:33 PM EST): Continue Levothyroxine 100 mcg per day. Check TSH today and adjust Levothyroxine as needed. Assessment & Plan (07/09/2024 2:31 PM EDT): Currently on Synthroid 100 MCG, will check TSH and adjust meds as needed. Assessment & Plan (03/28/2023 2:10 PM EDT): check TSH and adjust levothyroxine as needed FU with me in 1 month Mood disorder 07/24/2017 Multiple myeloma 07/24/2017 Assessment & Plan (07/09/2024 3:47 PM EDT): Currently off treatment (Lenalidomide was given at [facility]) for at least 1 month[address] Will discuss with Dr. Ernst Simms at next weeks appointment. We discussed with Pt and family regarding preventing falls due to high risk of fractures. Will order home safety evaluation and prescribe DME as needed. Monitor electrolytes Assessment & Plan (03/28/2023 2:09 PM EDT): seems to be stable on denosumab maintenance ever three months FU with [facility] oncology continue close follow up with oncology and monitor electrolytes Resolved Problems Problem Noted Date Diagnosed Date Resolved Date Chronic use of opiate drug f or therapeutic purpose 03/28/2023 12/23/2024 Assessment & Plan (03/28/2023 2:05 PM EDT): doing well on oxycodone 10mg BID mainly for shoulder and neck pain We have done [employer] education re opiate side effects including dizziness, somnolence, constipation, urinary retention, dependance, etc. Patient is aware of the importance of avoiding any activity that requires vigilance while taking these meds including driving. We have discussed re avoiding diversion of medication, including giving pills to relatives. Patient is to keep medications in a safe place and is aware that rx will not be replaced if lost or stolen. due for prescription next week continue close fu with PHYSICIAN ASST nurse pt unable to void today, reminded her to provide urine when requested and within 24 hours. Acute respiratory failure 11/01/2022 Diarrhea 11/01/2022 11/23/2024 Assessment & Plan (07/04/2023 11:48 AM EDT): R/o C diff order labs pt has imodium use PRN encouraged increased hydration Assessment & Plan (03/28/2023 2:07 PM EDT): Chronic due to malabsorption s/p XRT continue immodium prn and order labs as above. Pneumonia due to COVID-19 virus 11/01/2022 01/06/2025 Encounters Date Type Department Care Team Description 01/06/2025 11:30 AM EST Office Visit [address] [address] Erika Morris MD Urinary frequency (Primary Dx); Incontinence of feces with fecal urgency; Overweight; Dietary counseling; Exercise counseling; Encounter for screening for diabetes mellitus 01/06/[address] [address] Erika Morris MD Durable Medical Equipment 01/06/2025 Travel 12/29/[address] [address] Erika Morris MD 12/29/[address] [address] Erika Morris MD [employer]LEMENT[employer] SCHOOL MUSIC TEACHER Services (I called the patient at [phone], regarding a request for an increase in ELEMENTARY SCHOOL MUSIC TEACHER hours. I reached a voicemail, and left a message asking her to contact me at ext [phone]. I then called Danna, her emergency contact at [phone]. I asked what agency the patient currently has for ELEMENTARY SCHOOL MUSIC TEACHER services, and Danna stated that she has [facility], on [facility] in [place]. She currently has 2 hours of ELEMENTARY SCHOOL MUSIC TEACHER services a week.) 12/24/[address] [address] Erika Morris MD 12/23/2024 1:00 PM EST Telemedicine [address] [address] Erika Morris MD Chronic diarrhea (Primary Dx); Incontinence of feces with fecal urgency; Hypocalcemia; Hypomagnesemia 12/23/2024 Travel 12/23/[address] [address] Erika Morris MD No Show 12/23/2024 Telephone [facility] [address] [place] [phone] Erika Morris MD Durable Medical Equipment 12/21/2024 Telephone [facility] [address] [place] [phone] Erika Morris MD Appointment Request 12/18/2024 Telephone [facility] [address] [place] [phone] Makenna Carpio MA Chart prep 12/08/2024 Telephone [facility] [address] [place] [phone] Erika Morris MD 11/30/2024 Patient Outreach [address] [address] Erika Morris MD Transition Of Care (Tcm) (HDF scheduled) 11/30/[address] [address] rEika Morris MD Hospital Follow-up 11/27/2024 Telephone [facility] [address] [place] [phone] Erika Morris MD Durable Medical Equipment 11/23/2024 10:00 AM EST Office Visit [facility] [address] [place] [phone] Erika Morris MD Chronic diarrhea (Primary Dx); Incontinence of feces with fecal urgency; Gastroesophageal reflux disease, unspecified whether esophagitis present; Hypothyroidism (acquired); Gait disturbance; Primary insomnia 11/23/2024 Telephone [facility] [address] [place] [phone] Erika Morris MD CRITICAL RESULTS 11/23/2024 Telephone [facility] [address] [place] [phone] Erika Morris MD Durable Medical Equipment 11/23/2024 Travel 11/20/2024 Telephone [facility] [address] [place] [phone] Makenna Carpio MA Chart prep 11/13/2024 Telephone [facility] [address] [place] [phone] Erika Morris MD 11/12/2024 1:00 PM EST Office Visit [facility] [address] [place] [phone] Roseanna Berger MD Acute UTI (Primary Dx); Muscle spasm of back 11/12/2024 Orders Only [facility] [address] [place] [phone] Roseanna Berger MD 11/11/[address] [address] Erika Morris MD Nurse Triage 11/10/[address] [address] Erika Morris MD 11/05/[address] [address] Erika Morris MD Appointment Request 11/03/2024 Patient Outreach [address] [address] Erika Morris MD Pre-visit Planning ((Unable to reach for PVP screening and or LVM)) 10/29/[address] [address] Erika Morris MD 10/27/[address] [address] Micaela Aldridge, PharmD Diarrhea due to malabsorption (Primary Dx) 10/26/[address] [address] Micaela Adlridge, PharmD 10/26/[address] [address] Erika Morris MD Nurse Triage 10/20/[address] [address] Erika Morris MD Medication Question 10/19/[address] [address] Erika Morris MD verbal orders needed 10/16/2024 Patient Outreach [facility] [address] [place] [address] Erika Morris MD Transition Of Care (Tcm) (HDF scheduled, SDOH will need to be completed in office. ) from Last 3 Months Immunizations Name Administration Dates Next Due Influenza High-dose Quadrivalent Preservative Fr ee 01/17/2021 Influenza injectable quadrivalent preservative f ree 09/03/2018,09/03/2017 Influenza, seasonal, injectable, preservative fr ee 09/19/2024 Pfizer Covid-19 Vaccine 12+ 08/02/2021, Pneumococcal Polysaccharide PPSV23 01/07/2019, Tdap 01/07/2019 Social History Tobacco Use Types Packs/Day Years Used Date Smoking Tobacco: Every Day Cigarettes Smokeless Tobacco: Never Tobacco Cessation:Ready to Q uit: Not Asked; Counseling Given: Not Answered Alcohol Use Standard Drinks/Week Comments Not Currently 0 (1 standard drink = 0.6 oz pur e alcohol) once a year Depression Answer Date Recorded Patient Health Questionnaire-9 Score 14 03/28/2023 Housing Stability Answer Date Recorded What is your housing situation today? I have jerricaruss piedra 09/11/[address] you [...] not to disclose 2021 10:29 AM EDT Last Filed Vital Signs Vital Sign Reading Time Taken Comments Blood Pressure 128/76 01/06/2025 11:31 AM EST Pulse 76 01/06/2025 11:31 AM EST Temperature 36.6 ??C (97.8 ??F) 01/06/2025 11:[address] Respiratory Rate 17 01/06/2025 11:31 AM EST Oxygen Saturation 100% 11/23/2024 10:03 AM EST Inhaled Oxygen Concentration - - Weight 66.7 kg (147 lb) 01/06/2025 11:31 AM EST Height 162.3 cm (5' 3.88 ) 11/23/2024 10:[address] Body Mass Index 25.33 11/23/2024 10:03 AM EST Plan of Treatment Health Maintenance Due Date Last Done Comments Dental Oral Exam 1944 Dental Prophylaxis 1944 Dental X-Ray: Bitewings 1944 Dental X-Ray: Full Mouth 1944 Alcohol/Substance Use Screening 1956 Hepatitis A Vaccines (1 of 2 - Risk 2-dose series) 1963 Zoster Vaccines (1 of 2) 1963 RSV Patients and Patients Aged 60 years or older (1 - 1-dose 75+ series) 2019 Pneumococcal Vaccine: 50+ Years (3 of 3 - PCV) 01/07/2020 01/07/2019, 06/28/2014 COVID-19 Vaccine (3 - Pfizer risk series) 08/30/2021 08/02/2021, 05/23/2021 Depression Monitoring (PHQ-9) 09/28/2023 03/28/2023, 03/28/2023 Depression Screening 03/28/2024 03/28/2023, 03/28/20 SDOH Screening 03/28/2024 03/28/2023 Tobacco Screening 01/06/2026 01/06/2025 Lipid Panel 04/16/2028 04/16/2023, 09/18/2021 DTaP/Tdap/Td Vaccines (2 - Td or Tdap) 01/07/2029 01/07/2019 Influenza Vaccine Completed 09/19/2024, , 09/03/2018, Additional history exists HIB Vaccines Aged Out No longer eligi ble based on patient's age to complete this topic HPV Vaccines Aged Out No longer eligi ble based on patient's age to complete this topic Hepatitis B Vaccines Aged Out No long er eligible based on patient's age to complete this topic IPV Vaccines Aged Out No longer eligi ble based on patient's age to complete this topic Meningococcal Vaccine Aged Out No rosette link eligible based on patient's age to complete this topic RSV under 20 months Aged Out No longe r eligible based on patient's age to complete this topic Rotavirus Vaccines Aged Out No longer eligible based on patient's age to complete this topic Procedures Procedure Name Priority Date/Time Associated Diagnosis Comments VITAMIN B12/FOLATE, SERUM PANEL Routine 11/23/2024 11:42 AM EST Primary insomnia TSH W/REFLEX TO FT4 Routine 11/23/2024 1 1:24 AM EST Hypothyroidism (acquired) PHOSPHATE ( PHOSPHORUS) Routine 11/23/2024 11:24 AM EST Chronic diarrhea MAGNESIUM Routine 11/23/2024 11:24 AM EST Chronic diarrhea BASIC METABOLIC PANEL Routine 11/23/2024 11:24 AM EST Chronic diarrhea CULTURE, URINE, ROUTINE Routine 11/12/2024 5:56 PM EST URINALYSIS, COMPLETE, WITH REFLEX TO CULTURE Routine 11/12/2024 1:25 PM EST Acute UTI POCT URINALYSIS DIPSTICK Routine 11/12/2024 1:24 PM EST Acute UTI LIPID PANEL WITH REFLEX TO DIRECT LDL Routine 04/16/2023 11:12 AM EDT Stage 3b chronic kidney disease (CMS/HCC) from Last 3 Months or Most Recently Relevant to Health Maintenance Results * Vitamin B12/Folate, Serum Panel (11/23/2024 11:42 AM EST) Vitamin B12 496 200 - 900 pg/mL [facility] Comment:NORMAL 200-900 PG/ML INDETERMINATE 160-199 PG/ML DEFICIENT < 160 PG/ML Folate 8.0 > or = 4.0 ng/mL [facility] Comment:Reference Values:> o r = 4.0 ng/mL< 4.0 ng/mL suggests folate deficiency Methotrexate, aminopterin and folinic acid(leucovorin) are chemotherapeutic agents whose molecularstructures are similar to folate; therefore, the Architectfolate assay cannot be used for patients using these drugs. Blood Venous blood specimen / Unknown 11/23/2024 11:42 AM EST 11/23/2024 1:18 PM EST Erika Morris MD LAB BLOOD ORDERABLES Fin al Result Performing Organization Address City/[facility] Co de Phone Number [facility] [address] [place] [phone] * TSH with Reflex to Free T4 (11/23/2024 11:24 AM EST) Pathologist [facility] TSH reflex Free T4 0.44 0.32 - 4.0 uIU/mL [facility] Blood 11/23/2024 11:2 4 AM EST 11/23/2024 1:28 PM EST Erika Morris MD LAB BLOOD ORDERABLES Fin al Result Performing Organization Address City/[facility] Co de Phone Number [facility] [address] [place] [address] [phone] * Phosphate (As Phosphorus) (11/23/2024 11:24 AM EST) Phosphorus 3.3 2.7 - 4.5 mg/dL [facility] Blood Venous blood specimen / Unknown 11/23/2024 11:24 AM EST 11/23/2024 1:28 PM EST Erika Morris MD LAB BLOOD ORDERABLES Fin al Result Performing Organization Address [facility] de Phone Number [facility] [address] [place] [phone] * (ABNORMAL) Magnesium (11/23/2024 11:24 AM EST) Magnesium <0.6(LL) 1.6 - 2.6 mg/dL [facility] Comment:Critical value for M AG: Results called to and read backby: KLEBER Wahl Person calling: JACKELINNKIR Date:11/23/24Time:1415Test was verified by repeat analysis. Blood Venous blood specimen / Unknown 11/23/2024 11:24 AM EST 11/23/2024 1:28 PM EST Erika Morris MD LAB BLOOD ORDERABLES Fin al Result Performing Organization Address [facility] de Phone Number [facility] [address] [place] [phone] * (ABNORMAL) Basic Metabolic Panel (11/23/2024 11:24 AM EST) Pathologist [facility] Sodium 143 135 - 145 mmol/L [facility] Potassium 3.3 3.3 - 5.1 mmol/L [facility] Chloride 113(H) 96 - 108 mmol/L [facility] Carbon Dioxide 21(L) 22 - 29 mmol/L [facility] Anion Gap 12 12 - 20 [facility] Urea Nitrogen (BUN) 15 9 - 16 mg/dL [facility] Creatinine, Serum 0.86 0.5 - 1.4 mg/dL [facility] Estimated Glomerular Filt Rate >60 [facility] Comment:Chronic Kidney Disea se: Estimated GFR < 60 mL/min/1.81j6Gvjanu Kidney Disease: Estimated GFR < 15 mL/min/1.73m2 Glucose 92 60 - 115 mg/dL [facility] Calcium 5.8(LL) 8.4 - 10.2 mg/dL [facility] Comment:Critical value for C A: Results called to and read back by:LEONEL Wahl Person calling: SOILA Date: 11/23/24 Time:1415Test was verified by repeat analysis. Blood Venous blood specimen / Unknown 11/23/2024 11:24 AM EST 11/23/2024 1:28 PM EST us Erika Morris MD LAB BLOOD ORDERABLES Fin al Result Performing Organization Address [facility] Co de Phone Number [facility] [address] [place] [phone] * Culture, Urine, Routine (11/12/2024 5:56 PM EST) Urine Urine specimen obtained by clean catch procedure / Unknown 11/12/2024 5:56 PM EST 11/12/2024 5:56 PM EST Comment:UACC Narrative [facility] - 11/15/2024 8:23 AM EST Escherichia coli ESBL Note: NOTE: Extended-Spectrum Beta-Lactamase enzyme present Quant 10,000 to 50,000 cfu/mL Escherichia coli: Ampicillin >=32(R) Escherichia coli: Cefazolin >=32(R) Escherichia coli: Cefepime 8(I) Escherichia coli: Ceftriaxone >=64(R) Escherichia coli: Ciprofloxacin >=4(R) Escherichia coli: Ertapenem <=0.12(S) Escherichia coli: Gentamicin >=16(R) Escherichia coli: Nitrofurantoin <=16(S) Escherichia coli: Trimethoprim/Sulfamethoxazole >=320(R) Specimen Source: Urine clean catch us Roseanna Berger MD LAB MICROBIOLOGY - GENERAL ORDERABLES Final Result Performing Organization Address [facility] Co de Phone Number [facility] [address] [place] [address] [phone] * (ABNORMAL) Urinalysis, Complete, with Reflex to Culture (11/12/2024 1:25 PM EST) [facility] Urine Yellow [facility] Appearance Urine Cloudy [facility] PH 5.5 5.0 - 9.0 [facility] Glucose Urine UA Negative Negative mg/dL [facility] Urine Blood Negative Negative [facility] Specific [place] - Urine 1.015 1.005 - 1.025 [facility] Urine Protein 100 (2+)(A) Neg-Trace mg/dL [facility] Urine Ketones Negative Negative mg/dL [facility] Nitrite Urine Negative Negative [facility] Leukocyte Esterase Urine Negative Negative [facility] RBC Urine 0-2 0 - 2 /HPF [facility] Urine WBC 6-10(A) 0 - 5 /HPF [facility] Urine Squamous Epithelial Cell >20 0 - 2 /HPF [facility] Urine Bacteria 2+ None Seen [facility] Hyaline Casts, Urine 6-10 0 - 2 /LPF [facility] Urine 11/12/2024 1:25 PM EST 11/12/2024 5:26 PM EST Narrative [facility] - 11/12/2024 5:54 PM EST Urine, Clean Catch Roseanna Berger MD LAB URINE ORDERABLES Final Result [facility] [address] [place] [phone] * POCT urinalysis dipstick manually resulted (11/12/2024 1:24 PM EST) Color, UA Yellow Clarity, UA Clear Glucose, UA Negative Bilirubin, UA Negative Ketones, UA Negative Spec Grav, UA 1.025 Blood, UA Negative Negative, None Detected pH, UA 6.0 Protein, UA Few 15 Comment:100 mg/dL Urobilinogen, UA 0.2 Leukocytes, UA Negative Negative, Rare, Trace Nitrite, UA Negative Negative, None Detected Urine 11/12/2024 1:24 PM EST Roseanna Berger MD POINT OF CARE TEST ENTER/E DIT ORDERABLES Final Result * (ABNORMAL) Lipid Panel with Reflex to Direct LDL (04/16/2023 11:12 AM EDT) Cholesterol, Total 187 <200 mg/dL true[x] [facility] HDL Cholesterol 66 > OR = 50 mg/dL true[x] [facility] Triglycerides 98 <150 mg/dL true[x] [facility] LDL Cholesterol 102(H) mg/dL (calc) true[x] [facility] Comment: Reference range: <100 Desirable range <100 mg/dL for primary prevention; ?? <70 mg/dL for patients with CHD or diabetic patients with > or = 2 CHD risk factors. LDL-C is now calculated using the John-Lourdes calculation, which is a validated novel method providing better accuracy than the Friedewald equation in the estimation of LDL-C. John SS et al. DOMINIQUE. 2013;310(19): 7628-0063 (http://education.[employer]/faq/MIL453) Chol/HDLC Ratio 2.8 <5.0 (calc) true[x] [facility] Non-HDL Cholesterol 121 <130 mg/dL (calc) true[x] [facility] Comment: For patients with diabetes plus 1 major ASCVD risk factor, treating to a non-HDL-C goal of <100 mg/dL (LDL-C of <70 mg/dL) is considered a therapeutic option. 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
--- OUTSIDE RECORDS SUMMARY | 2025-01-06 13:47 | XMS_ITS | Encounter Summary ---
Author Organization [employer] Address [address] [facility] 7t [place] [address] Care Team Providers Care Health Care Marketing Manager Name Role Phone Erika Morris MD Primary Care Provider + Encounter Details Date Type Department Care Team (Latest Contact Info) Description 12/23/2024 Travel Social History Tobacco Use Types Packs/Day Years [...] AM EDT documented as of this encounter Plan of Treatment Not on file documented as of this encounter Visit Diagnoses Not on filedocumented in this encounter Additional Health Concerns Assessment Noted Time PHQ-9 Depression Total Score: 14 023 10:41 AM EDT documented as of this encounter Care Teams Health Care Marketing Manager Relationship Specialty Start Date End Date Erika Morris MD [address] [place] [phone] PCP - General Family Medicine 08/07/18 [facility] 10/19/24 documented as of this encounter
--- OUTSIDE RECORDS SUMMARY | 2025-01-06 13:47 | XMS_ITS | Encounter Summary ---
Author Organization [employer] Address [address] [facility] 7t [place] [address] Care Team Providers Care Top And Trim Worker Name Role Phone Erika Morris MD Primary Care Provider + Reason for Visit * Reason Onset Date Comments Durable Medical Equipment 01/06/2025 Encounter Details Date Type Department Care Team ([facility] st Contact Info) Description 01/06/2025 Telephone [facility] MEDICINE [address] [place], [place] [phone] Erika Morris MD [address] [place], [place] [phone] Durable Medical Equipment Social History Tobacco Use [...] Telephone Encounter - Makenna Carpio MA - 01/06/2025 11:43 AM EST Tc to L&C to f/u on pt's wipes, gloves, and boost. Per L&C Medicare doesn't cover nutritional or incontinence supplies. Will inform PCP. documented in this encounter Plan of Treatment Not on file documented as of this encounter Visit Diagnoses Not on filedocumented in this encounter Additional Health Concerns Assessment Noted Time PHQ-9 Depression Total Score: 14 023 10:41 AM EDT documented as of this encounter Care Teams Top And Trim Worker Relationship Specialty Start Date End Date Erika Morris MD [address] [place] [address] PCP - General Family Medicine 08/07/18 [facility] 10/19/24 documented as of this encounter
--- OUTSIDE RECORDS SUMMARY | 2025-01-06 13:47 | XMS_ITS | Encounter Summary ---
Author Organization [employer] Address [address] [facility] 7t [place] [address] Care Team Providers Care Skiing Teacher Name Role Phone Erika Morris MD Primary Care Provider + Reason for Visit * Reason Onset Date Comments SECURITY ATTENDANT Services 12/29/2024 I called the pat ient at [phone], regarding a request for an increase in SECURITY ATTENDANT hours. I reached a voicemail, and left a message asking her to contact me at ext [phone]. I then called Danna, her emergency contact at [phone]. I asked what agency the patient currently has for SECURITY ATTENDANT services, and Danna stated that she has [facility], on [facility] in [place]. She currently has 2 hours of SECURITY ATTENDANT services a week. Encounter Details Date Type Department Care Team (Late st Contact Info) Description 12/29/[address] [facility] MEDICINE [address] [place] [phone] Erika Morris MD [address] [place], [place] [phone] SECURITY ATTENDANT Services (I called the patient at [phone], regarding a request for an increase in SECURITY ATTENDANT hours. I reached a voicemail, and left a message asking her to contact me at ext [phone]. I then called Danna, her emergency contact at [phone]. I asked what agency the patient currently has for SECURITY ATTENDANT services, and Danna stated that she has [facility], on [facility] in [place]. She currently has 2 hours of SECURITY ATTENDANT services a week.) Social History Tobacco Use Types Packs/Day Years [...] encounter Miscellaneous Notes * Telephone Encounter - Hansa George MA - 12/29/2024 9:21 AM EST I called the patient at [phone], regarding a request for an increase in SECURITY ATTENDANT hours. I reached bakari, and left a message asking her to contact me at ext [phone]. I then called Danna, her emergency contact at [phone]. I asked what agency the patient currently has for SECURITY ATTENDANT services, and Danna stated that she has [facility], on [facility] in [place]. She currently has 2 hours ofPCA services a week. documented in this encounter Plan of Treatment Not on file documented as of this encounter Visit Diagnoses Not on filedocumented in this encounter Additional Health Concerns Assessment Noted Time PHQ-9 Depression Total Score: 14 023 10:41 AM EDT documented as of this encounter Care Teams Skiing Teacher Relationship Specialty Start Date End Date Erika Morris MD [address] [place] [address] PCP - General Family Medicine 08/07/18 [facility] 10/19/24 documented as of this encounter
--- OUTSIDE RECORDS SUMMARY | 2025-01-06 13:47 | XMS_ITS | Encounter Summary ---
Author Organization [employer] Address [address] [facility] 7t [place] [address] Care Team Providers Care Counterintelligence Specialist Name Role Phone Erika Morris MD Primary Care Provider + Encounter Details Date Type Department Care Team (Late st Contact Info) Description 01/06/2025 11:30 AM EST Office Visit [facility] MEDICINE [address] [place], [place] [phone] Erika Morris MD [address] [place], [place] [phone] Urinary frequency (Primary Dx); Incontinence of feces with fecal urgency; Overweight; Dietary counseling; Exercise counseling; Encounter for screening for diabetes mellitus Social History Tobacco Use Types Packs/Day Years [...] AM EDT documented as of this encounter Last Filed Vital Signs Vital Sign Reading Time Taken Comments Blood Pressure 128/76 01/06/2025 11:31 AM EST Pulse 76 01/06/2025 11:31 AM EST Temperature 36.6 ??C (97.8 ??F) 01/06/2025 11:[address] Respiratory Rate 17 01/06/2025 11:31 AM EST Oxygen Saturation - - Inhaled Oxygen Concentration - - Weight 66.7 kg (147 lb) 01/06/2025 11:31 AM EST Height - - Body Mass Index 25.33 11/23/2024 10:03 AM EST documented in this encounter Miscellaneous Notes * Assessment & Plan Note - Roseanna Segovia MA - 01/06/2025 1:18 PM EST Associated Problem(s): Encounter for screening for diabetes mellitus Will order A1c due to increased urinary frequency. * Assessment & Plan Note - Roseanna Segovia MA - 01/06/2025 1:17 PM EST Associated Problem(s): Overweight Patient has been losing weight due to diarrhea and chemotherapy. Advised to use Boost or nutritional supplement once per day, unfortunately not covered by insurance. * Assessment & Plan Note - Roseanna Segovia MA - 01/06/2025 1:15 PM EST Associated Problem(s): Incontinence of feces with fecal urgency Triggered by episodes of diarrhea, secondary to chemotherapy. Patient is doing better on Imodium 4mg TID PRN Reminded her to stay hydrated and check labs today. * Assessment & Plan Note - Roseanna Segovia MA - 01/06/2025 1:13 PM EST Associated Problem(s): Urinary frequency Rule out UTI or DM. Order labs and FU results. documented in this encounter Plan of Treatment Scheduled Orders Name Type Priority Associated Diagnoses Orde r Schedule Hemoglobin A1c Lab Routine Urinary frequency Encounter for screening for diabetes mellitus Expected: 01/06/2025 (Approximate), Expires: 01/06/2026 Urinalysis, Complete, with Reflex to Culture Lab Routine Urinary frequency Expected: 01/06/2025 (Approximate), Expires: 01/06/2026 documented as of this encounter Visit Diagnoses Diagnosis Urinary frequency- Primary Incontinence of feces with fecal urgency Overweight Dietary counseling Dietary surveillance and counseling Exercise counseling Encounter for screening for diabetes mellitus documented in this encounter Additional Health Concerns Assessment Noted Time PHQ-9 Depression Total Score: 14 023 10:41 AM EDT documented as of this encounter Care Teams Counterintelligence Specialist Relationship Specialty Start Date End Date Erika Morris MD [address] [place] [phone] PCP - General Family Medicine 08/07/18 [facility] 10/19/24 documented as of this encounter
--- OUTSIDE RECORDS SUMMARY | 2025-01-06 13:47 | XMS_ITS | Encounter Summary ---
Author Organization [employer] Address [address] [facility] 7t [place] [address] Care Team Providers Care Compass Operator Name Role Phone Erika Morris MD Primary Care Provider + Reason for Visit * Reason Onset Date Comments Chart prep 12/18/2024 Encounter Details Date Type Department Care Team ([facility] st Contact Info) Description 12/18/2024 Telephone [facility] MEDICINE [address] [place] [address] Makenna Carpio MA Chart prep Social History Tobacco Use Types Packs/Day Years [...] Telephone Encounter - Makenna Carpio MA - 12/18/2024 10:26 AM EST Chart Prep Labs: done Images: done Vaccines due: yes Referrals: complete Screenings: n/a Overdue care gaps: SDOH, PHQ-9 documented in this encounter Plan of Treatment Not on file documented as of this encounter Visit Diagnoses Not on filedocumented in this encounter Additional Health Concerns Assessment Noted Time PHQ-9 Depression Total Score: 14 023 10:41 AM EDT documented as of this encounter Care Teams Compass Operator Relationship Specialty Start Date End Date Erika Morris MD [address] [place] [phone] PCP - General Family Medicine 08/07/18 [facility] 10/19/24 documented as of this encounter
--- OUTSIDE RECORDS SUMMARY | 2025-01-06 13:47 | XMS_ITS | Encounter Summary ---
Author Organization [employer] Address [address] [facility] 7t [place] [address] Care Team Providers Care City Director Name Role Phone Erika Morris MD Primary Care Provider + Reason for Visit * Reason Onset Date Comments No Show 12/23/2024 Encounter Details Date Type Department Care Team ([facility] st Contact Info) Description 12/23/2024 Telephone [facility] MEDICINE [address] [place], [place] [phone] Erika Morris MD [address] [place], [place] [phone] No Show Social History Tobacco Use Types Packs/Day Years [...] encounter Miscellaneous Notes * Telephone Encounter - Monica Pro RN - 12/24/2024 8:45 AM EST Noted. Patient had TV with Dr. Morris for HDF yesterday 11/2924. * Telephone Encounter - Tami Saba RN - 12/23/2024 2:52 PM EST Pt to complete televisit with PCP Dr Morris. * Telephone Encounter - Flakita Grace - 12/23/2024 1:32 PM EST Pt no showed to appt on 12/23/24 documented in this encounter Plan of Treatment Not on file documented as of this encounter Visit Diagnoses Not on filedocumented in this encounter Additional Health Concerns Assessment Noted Time PHQ-9 Depression Total Score: 14 023 10:41 AM EDT documented as of this encounter Care Teams City Director Relationship Specialty Start Date End Date Erika Morris MD [address] [place] [phone] PCP - General Family Medicine 08/07/18 Héctor Nelly 10/19/24 documented as of this encounter
--- OUTSIDE RECORDS SUMMARY | 2025-01-06 13:47 | XMS_ITS | Encounter Summary ---
Author Organization [employer] Address [address] [facility] 7t [place] [address] Care Team Providers Care Street Supervisor Name Role Phone Erika Morris MD Primary Care Provider + Encounter Details Date Type Department Care Team (Late st Contact Info) Description 12/24/2024 Telephone [facility] MEDICINE 230 [place], [place] [phone] Erika Morris MD [address] [place], [place] [phone] Social History Tobacco Use Types Packs/Day Years [...] encounter Miscellaneous Notes * Telephone Encounter - Kalpana Marv - 12/24/2024 2:43 PM EST FYI to PCP - patient discharged from Medication Therapy Management effective today. Patient has had >3 consecutive canceled/no showed pharmacy visits and thus will be removed from the outreach list per existing workflow. If, upon further discussion, you feel patient would benefit from pharmacy services please issue a new referral to re-enroll. Thank you. documented in this encounter Plan of Treatment Not on file documented as of this encounter Visit Diagnoses Not on filedocumented in this encounter Additional Health Concerns Assessment Noted Time PHQ-9 Depression Total Score: 14 023 10:41 AM EDT documented as of this encounter Care Teams Street Supervisor Relationship Specialty Start Date End Date Erika Morris MD [address] [place] [phone] PCP - General Family Medicine 08/07/18 Héctor YUAN 10/19/24 documented as of this encounter
--- OUTSIDE RECORDS SUMMARY | 2025-01-06 13:47 | XMS_ITS | Encounter Summary ---
Author Organization [employer] Address 75 [facility] 7t [place] [address] Care Team Providers Care Circular Tank Cooper Name Role Phone Erika Morris MD Primary Care Provider + Encounter Details Date Type Department Care Team (Late st Contact Info) Description 12/29/2024 Telephone [facility] MEDICINE [address] [place], [place] [phone] Erika Mroris MD [address] [place], [place] [phone] Social History Tobacco Use Types Packs/Day Years [...] encounter Miscellaneous Notes * Telephone Encounter - Dot Elise RN - 12/29/2024 3:04 PM EST Received request from PCP to contact agency to increase LEAD LOADER hours due to patient's increased need for assistance with ADL's and IADL's. Patient receives only 8 hours per week from [facility]. [facility] stated that in order for services to be increased I needed to contact [facility] and talk withpatient's outpatient case manager. I contacted [facility] and spoke with Malorie Adams Who reported that patient cannot get an increase as she owes funds for a custodial facility stay. Family has been notified of this issue and has not done anything to correct situation. Nothing can be done with her services at this time. documented in this encounter Plan of Treatment Not on file documented as of this encounter Visit Diagnoses Not on filedocumented in this encounter Additional Health Concerns Assessment Noted Time PHQ-9 Depression Total Score: 14 023 10:41 AM EDT documented as of this encounter Care Teams Circular Tank Cooper Relationship Specialty Start Date End Date Erika Morris MD [address] [place] [address] PCP - General Family Medicine 08/07/18 Héctor YUAN 10/19/24 documented as of this encounter
--- OUTSIDE RECORDS SUMMARY | 2025-01-06 13:47 | XMS_ITS | Encounter Summary ---
Author Organization [employer] Address [address] [facility] 7t [place] [address] Care Team Providers Care Regulatory Submissions Associate Name Role Phone Erika Morris MD Primary Care Provider + Encounter Details Date Type Department Care Team (Latest Contact Info) Description 01/06/2025 Travel Social History Tobacco Use Types Packs/Day [...] documented as of this encounter Care Teams Regulatory Submissions Associate Relationship Specialty Start Date End Date Erika Morris MD [address] [place] [address] PCP - General Family Medicine 08/07/18 Héctor YUAN 10/19/24 documented as of this encounter
--- OUTSIDE RECORDS SUMMARY | 2025-01-06 13:47 | XMS_ITS | Encounter Summary ---
Author Organization [employer] Address 75 [facility] 7t [place] [address] Care Team Providers Care Pad Assembler Name Role Phone Erika Morris MD Primary Care Provider + Reason for Visit * Reason Onset Date Comments Appointment Request 12/21/2024 Encounter Details Date Type Department Care Team ([facility] st Contact Info) Description 12/21/2024 Telephone [facility] MEDICINE 230 [place], [place] [phone] Erika Morris MD [address] [place], [place] [phone] Appointment Request Social History Tobacco Use Types Packs/Day Years [...] Telephone Encounter - Monica Pro RN - 12/21/2024 11:35 AM EST TC placed to daughter [phone] in regards to below message. Daughter reports the appointment today was too early in the morning. RN was able to r/s HDF for 12/23/24 at 1pm. Daughter agreed to appointment date and time. Daughter to f/u PRN. * Telephone Encounter - Mahesh [place] - 12/21/2024 10:58 AM EST Tc from pt Daughter requesting to r/s appt from 12/21/24. Contact pt Daughter at [phone] documented in this encounter Plan of Treatment Not on file documented as of this encounter Visit Diagnoses Not on filedocumented in this encounter Additional Health Concerns Assessment Noted Time PHQ-9 Depression Total Score: 14 023 10:41 AM EDT documented as of this encounter Care Teams Pad Assembler Relationship Specialty Start Date End Date Erika Morris MD [address] [place] [address] PCP - General Family Medicine 08/07/18 Héctor [facility]NA 10/19/24 documented as of this encounter
--- OUTSIDE RECORDS SUMMARY | 2025-01-06 13:48 | XMS_ITS | Encounter Summary ---
Author Organization [employer] Address 75 [facility] 7t [place] [address] Care Team Providers Care Terminal Makeup Operator Name Role Phone Erika Morris MD Primary Care Provider + Encounter Details Date Type Department Care Team (Late st Contact Info) Description 08/17/2024 Telephone [facility] MEDICINE 230 [place], [place] [phone] Erika Morris MD 230 [place], [place] [phone] Social History Tobacco Use Types Packs/Day Years [...] Telephone Encounter - Dot Elise RN - 08/17/2024 2:48 PM EDT Received message from Red team nurse that patient is looking for increase in homemaking hours. I contacted [facility] to discuss with rn managed care Lien Johnson. I left voicemail message with info and request for return call. documented in this encounter Plan of Treatment Not on file documented as of this encounter Visit Diagnoses Not on filedocumented in this encounter Additional Health Concerns Assessment Noted Time PHQ-9 Depression Total Score: 14 023 10:41 AM EDT documented as of this encounter Care Teams Terminal Makeup Operator Relationship Specialty Start Date End Date Erika Morris MD [address] [place] [id number] PCP - General Family Medicine 08/07/18 [employer] 07/16/24 11/08/24 [facility] 10/19/24 documented as of this encounter
--- OUTSIDE RECORDS SUMMARY | 2025-01-06 13:48 | XMS_ITS | Encounter Summary ---
Author Organization [employer] Address 75 [facility] 7t [place] [address] Care Team Providers Care Insurance Application Investigator Name Role Phone Erika Morris MD Primary Care Provider + Reason for Visit * Reason Onset Date Comments Hospital Follow-up 11/30/2024 Encounter Details Date Type Department Care Team ([facility] st Contact Info) Description 11/30/2024 Telephone [facility] MEDICINE 230 [place], [place] [phone] Erika Morris MD [address] [place], [place] [phone] Hospital Follow-up Social History Tobacco Use Types Packs/Day Years [...] encounter Miscellaneous Notes * Telephone Encounter - Estefany Wheat - 11/30/2024 1:13 PM EST Tc from Danna requesting a [employer] appt. [place] [facility] Date of admission: 11/23/24 Discharge date: 11/27/24 Diagnosed: Calcium and magnesium *Send message to [facility] [place] Clinical Care Coordinators documented in this encounter Plan of Treatment Not on file documented as of this encounter Visit Diagnoses Not on filedocumented in this encounter Additional Health Concerns Assessment Noted Time PHQ-9 Depression Total Score: 14 023 10:41 AM EDT documented as of this encounter Care Teams Insurance Application Investigator Relationship Specialty Start Date End Date Erika Morris MD [address] [place] [id number] PCP - General Family Medicine 08/07/18 Héctor YUAN 10/19/24 documented as of this encounter
--- OUTSIDE RECORDS SUMMARY | 2025-01-06 13:48 | XMS_ITS | Encounter Summary ---
Author Organization [employer] Address 75 [facility] 7t [place] [address] Care Team Providers Care Bariatric Program Coordinator Name Role Phone Erika Morris MD Primary Care Provider + Reason for Visit * Reason Comments Med Refill Encounter Details Date Type Department Care Team ([facility] st Contact Info) Description 07/17/2023 Refill [facility] MEDICINE 230 [place], [place] [phone] Ariadne aPnchal MD 230 [place], [place] [phone] Primary insomnia Social History Tobacco Use Types Packs/Day Years Used Date Smoking Tobacco: Some Days Cigarettes Smokeless Tobacco: Never Alcohol Use Standard Drinks/Week Comments Never 0 (1 standard drink = 0.6 oz pur e alcohol) Depression Answer Date Recorded Patient Health Questionnaire-9 Score 14 03/28/2023 Depression Answer Date Recorded Patient Health Questionnaire-2 [...] as of this encounter Visit Diagnoses Diagnosis Primary insomnia Persistent disorder of initiating or maintaining sleep documented in this encounter Additional Health Concerns Assessment Noted Time PHQ-9 Depression Total Score: 14 03/28/ 023 10:41 AM EDT documented as of this encounter Care Teams Bariatric Program Coordinator Relationship Specialty Start Date End Date Erika Morris MD [address] [place] [address] PCP - General Family Medicine 08/07/18 [employer] 07/16/24 11/08/24 Héctor UYAN 10/19/24 documented as of this encounter
--- OUTSIDE RECORDS SUMMARY | 2025-01-06 13:48 | XMS_ITS | Encounter Summary ---
Author Organization [employer] [facility] Address [address] [place] [address] Care Team Providers Care Retail Manager In Training Name Role Phone Yariel Walton MD Primary Care Provider Encounter Details Date Type Department Care Team (Late st Contact Info) Description 10/19/2024 Lab Requisition [facility] - Main Lab [address] [facility] [place] [address] Yariel Walton MD [address] [place] [address] Chronic kidney disease, unspecified; Essential (primary) hypertension Social History Tobacco Use Types Packs/Day Years Used Date Smoking Tobacco: Every Day Cigarettes Smokeless Tobacco: Never Alcohol Use Standard Drinks/Week Comments No 0 (1 standard drink = 0.6 oz pur e alcohol) Comments Unknown Sex and Gender Information Value Date Recorded Sex Assigned at Not on file Legal Sex Female 1:09 PM EST Gender Identity Not on file Sexual Orientation Not on file documented as of this encounter Plan of Treatment Not on file documented as of this encounter Visit Diagnoses Diagnosis Chronic kidney disease, unspecified Essential (primary) hypertension Unspecified essential hypertension documented in this encounter Additional Health Concerns Infection Onset Date Last Indicated Resolved Time ESBL 10/03/2024 10/03/2024 documented as of this encounter Care Teams Retail Manager In Training Relationship Specialty Start Date End Date Yariel Walton MD [address] [place] [address] PCP - General Family Medicine 10/12/24 documented as of this encounter
--- OUTSIDE RECORDS SUMMARY | 2025-01-06 13:48 | XMS_ITS | Encounter Summary ---
Author Organization [employer] Address 75 [facility] 7t [place] [address] Care Team Providers Care Pharmaceutical Analyst Name Role Phone Erika Morris MD Primary Care Provider + Reason for Visit * Reason Onset Date Comments Referral 06/04/2023 Encounter Details Date Type Department Care Team ([facility] st Contact Info) Description 06/04/2023 Telephone [facility] ADULT DENTAL [address] [place] [address] July Acuña DDS [address] [place] [address] Referral Social History Tobacco Use Types Packs/Day Years [...] not to disclose 2021 10:29 AM EDT COVID-19 Exposure Response Date Recorded In the last 10 days, have yo u been in contact with someone who was confirmed or suspected to have Coronavirus/COVID-19? No / Unsure 06/03/2023 11:35 AM EDT documented as of this encounter Miscellaneous Notes * Telephone Encounter - July Acuña DDS - 06/11/2023 8:33 AM EDT Yes it is. To please ask for me once she gets to the office. Thanks, Dr. Hernandez * Telephone Encounter - Elina Mills - 06/11/2023 8:10 AM EDT Daughter called in to confirm if referral for Oral Surgeon is ready for her to come pickling solution maker * Telephone Encounter - Elina Mills - 06/05/2023 8:28 AM EDT Contacted daughter and transferred to your line. Informed her that you may be with patient but to leave you a message and you will return her call. The phone number on the chart is the one to call back on . * Telephone Encounter - July Acuña DDS - 06/04/2023 9:00 AM EDT Please ask daughter to call back to my office. Patient needs to follow up with oral Surgeon. Dr. Cueto is coming on the , because I'd like to know the recommendations made at the hospital. [phone] Thanks, Dr. Hernandez * Telephone Encounter - Elina Mills - 06/04/2023 8:32 AM EDT Daughter Altagracia called in stating that she took her mom to hospital under provider advice to get antibiotic intravenously. Hospital gave paperwork that teeth/roots need to be extracted as soon as possible. She wants to be referred to oral surgeon. Informed I would make request with provider. She is willing to pickling solution maker in office. documented in this encounter Plan of Treatment Not on file documented as of this encounter Visit Diagnoses Not on filedocumented in this encounter Additional Health Concerns Assessment Noted Time PHQ-9 Depression Total Score: 14 023 10:41 AM EDT documented as of this encounter Care Teams Pharmaceutical Analyst Relationship Specialty Start Date End Date Erika Morris MD [address] [place] [address] PCP - General Family Medicine 08/07/18 Call [employer] 07/16/24 11/08/24 Héctor YUAN 10/19/24 documented as of this encounter
--- OUTSIDE RECORDS SUMMARY | 2025-01-06 13:48 | XMS_ITS | Encounter Summary ---
Author Organization [employer] Address 75 [facility] 7t [place] [address] Care Team Providers Care Hand Silvering Supervisor Name Role Phone Erika Morris MD Primary Care Provider + Encounter Details Date Type Department Care Team (Late st Contact Info) Description 11/13/2024 Telephone [facility] MEDICINE 230 [place], [place] [phone] Erika Morris MD 230 [place], [place] [phone] Social History Tobacco Use Types Packs/Day Years [...] documented as of this encounter Care Teams Hand Silvering Supervisor Relationship Specialty Start Date End Date Erika Morris MD [address] [place] [address] PCP - General Family Medicine 08/07/18 Héctor YUAN 10/19/24 documented as of this encounter
--- OUTSIDE RECORDS SUMMARY | 2025-01-06 13:48 | XMS_ITS | Encounter Summary ---
Author Organization [employer] Address 75 [facility] 7t [place] [address] Care Team Providers Care Book Sewer Name Role Phone Erika Morris MD Primary Care Provider + Reason for Visit * Reason Comments Med Refill Encounter Details Date Type Department Care Team ([facility] st Contact Info) Description 05/21/2023 Refill [facility] MEDICINE 230 [place], [place] [phone] Mariia Harper DO [address] [place] [address] Neoplasm related pain (acute) (chronic) Social History Tobacco Use Types Packs/Day Years [...] as of this encounter Visit Diagnoses Diagnosis Neoplasm related pain (acute) (chronic) documented in this encounter Additional Health Concerns Assessment Noted Time PHQ-9 Depression Total Score: 14 023 10:41 AM EDT documented as of this encounter Care Teams Book Sewer Relationship Specialty Start Date End Date Erika Morris MD [address] [place] [address] PCP - General Family Medicine 08/07/18 [employer] 07/16/24 11/08/24 Héctor YUAN 10/19/24 documented as of this encounter
--- OUTSIDE RECORDS SUMMARY | 2025-01-06 13:48 | XMS_ITS | Encounter Summary ---
Author Organization [employer] Address 75 [facility] 7t [place] [address] Care Team Providers Care Cash Grain Grower Name Role Phone Erika Morris MD Primary Care Provider + Encounter Details Date Type Department Care Team (Late st Contact Info) Description 12/08/2024 Telephone [facility] MEDICINE 230 [place], [place] [phone] Erika Morris MD [address] [place], [place] [phone] Social History Tobacco Use Types Packs/Day Years [...] Encounter - Makenna Carpio [place] - 12/18/2024 8:29 AM EST Duplicate. documented in this encounter Plan of Treatment Not on file documented as of this encounter Visit Diagnoses Not on filedocumented in this encounter Additional Health Concerns Assessment Noted Time PHQ-9 Depression Total Score: 14 023 10:41 AM EDT documented as of this encounter Care Teams Cash Grain Grower Relationship Specialty Start Date End Date Erika Morris MD 230 [place] [address] PCP - General Family Medicine 08/07/18 Héctor YUAN 10/19/24 documented as of this encounter
--- OUTSIDE RECORDS SUMMARY | 2025-01-06 13:48 | XMS_ITS | Encounter Summary ---
Author Organization [employer] Address 75 [facility] 7t [place] [address] Care Team Providers Care Lift Truck Operator Name Role Phone Erika Morris MD Primary Care Provider + Reason for Visit * Reason Comments Med Refill Encounter Details Date Type Department Care Team ([facility] st Contact Info) Description 10/10/2023 Refill [facility] MED & PEDS [address] [place], [place] [phone] Erika Morris MD 230 [place] [address] Neoplasm related pain (acute) (chronic) Social History [...] documented as of this encounter Care Teams Lift Truck Operator Relationship Specialty Start Date End Date Erika Morris MD [address] [place] [address] PCP - General Family Medicine 08/07/18 [employer] 07/16/24 11/08/24 Héctor YUAN 10/19/24 documented as of this encounter
--- OUTSIDE RECORDS SUMMARY | 2025-01-06 13:48 | XMS_ITS | Encounter Summary ---
Author Organization [employer] Address 75 [facility] 7t [place] [address] Care Team Providers Care Metalsmith Apprentice Name Role Phone Erika Morris MD Primary Care Provider + Encounter Details Date Type Department Care Team (Late st Contact Info) Description 12/26/2022 Orders Only [facility] MED & PEDS [address] [place] [address] Mariia Lemons LPN Social History Tobacco Use Types Packs/Day Years Used Date Smoking Tobacco: Never Assessed Comments Unknown Sex and Gender Information Value [...] suspected to have Coronavirus/COVID-19? No / Unsure 12/26/2022 10:33 AM EST documented as of this encounter Plan of Treatment Not on file documented as of this encounter Visit Diagnoses Not on filedocumented in this encounter Care Teams Metalsmith Apprentice Relationship Specialty Start Date End Date Erika Morris MD [address] [place] [address] PCP - General Family Medicine 08/07/18 [employer] 07/16/24 11/08/24 [employer] [facility] 10/19/24 documented as of this encounter
--- OUTSIDE RECORDS SUMMARY | 2025-01-06 13:48 | XMS_ITS | Encounter Summary ---
Author Organization [employer] Address [address] [place] [address] Care Team Providers Care Street Light Wirer Name Role Phone Yariel Walton MD Primary Care Provider Encounter Details Date Type Department Care Team (Late st Contact Info) Description 10/04/2024 Lab Requisition [facility] - Main Lab [address] [place] [address] Yariel Walton MD [address] [place] [address] Urinary tract infection, site not specified Social History Tobacco Use Types Packs/Day Years [...] on file documented as of this encounter Procedures Procedure Name Priority Date/Time Associated Diagnosis Comments URINALYSIS WITH REFLEX MICROSCOPIC Routine 10/03/2024 5:26 PM EST Urinary tract infection, site not specified URINALYSIS WITH REFLEX MICROSCOPIC Routine 10/03/2024 5:26 PM EST Urinary tract infection, site not specified CULTURE URINE Routine 10/03/2024 5:26 PM EST Urinary tract infection, site not specified documented in this encounter Results * (ABNORMAL) Urinalysis with reflex microscopic (10/03/2024 5:26 PM EST) Specific [place] Urine 1.016 1.003 - 1.030 LAB URINALYSIS - AUTOMATED METHOD 10/04/2024 1:53 PM [facility] pH, Urine 5.5 5.0 - 8.0 pH LAB URINALYSIS - AUTOMATED METHOD 10/04/2024 1:53 PM [facility] Leukocytes, Urine Large(A) Negative LAB URINALYSIS - AUTOMATED METHOD 10/04/2024 1:53 PM [facility] Nitrite, Urine Negative Negative LAB URINALYSIS - AUTOMATED METHOD 10/04/2024 1:53 PM [facility] Protein, Urine 100(A) <=Trace mg/dL LAB URINALYSIS - AUTOMATED METHOD 10/04/2024 1:53 PM [facility] Glucose, Urine Negative Negative mg/dL LAB URINALYSIS - AUTOMATED METHOD 10/04/2024 1:53 PM [facility] Ketones, Urine Negative Negative mg/dL LAB URINALYSIS - AUTOMATED METHOD 10/04/2024 1:53 PM [facility] Urobilinogen , Urine 0.2 0.2 - 1.0 mg/dL LAB URINALYSIS - AUTOMATED METHOD 10/04/2024 1:53 PM [facility] Bilirubin, Urine Negative Negative LAB URINALYSIS - AUTOMATED METHOD 10/04/2024 1:53 PM [facility] Blood, Urine Large(A) Negative LAB URINALYSIS - AUTOMATED METHOD 10/04/2024 1:53 PM [facility] RBC, Urine 278(H) 0 - 4 /HPF LAB URINALYSIS - AUTOMATED METHOD 10/04/2024 1:53 PM [facility] WBC, Urine 3,664.2(H) 0 - 4 /HPF LAB URINALYSIS - AUTOMATED METHOD 10/04/2024 1:53 PM [facility] Squamous Epithelial, Urine >100(H) 0 - 60 /LPF LAB URINALYSIS - AUTOMATED METHOD 10/04/2024 1:53 PM EST [facility] Bacteria, Urine Many(A) Negative /HPF LAB URINALYSIS - AUTOMATED METHOD 10/04/2024 1:53 PM [facility] Hyaline Casts, Urine 4.6(H) 0 - 3 /LPF LAB URINALYSIS - AUTOMATED METHOD 10/04/2024 1:53 PM EST [facility] Urine Urine specimen obtained by clean catch procedure / Unknown 10/03/2024 5:26 PM EST 10/04/2024 12:35 PM EST us Yariel Walton MD LAB URINE ORDERABLES Final R esult [facility] [address] [place] [address], [place] [phone] * (ABNORMAL) Culture urine (10/03/2024 5:26 PM EST) Culture, Urine >100,000 CFU/mL Escherichia coli ESBL(A) ADRIÁN 10/07/2024 8:02 AM EST [facility] Comment: THIS ORGANISM IS POSITIVE FOR EXTENDED SPECTRUM BETA-LACTAMASE (ESBL). ??EXTENDED SPECTRUM BETA-LACTAMASE ??PRODUCING ORGANISMS DEMONSTRATE DECREASED ACTIVITY WITH PENICILLILNS, CEPHALOSPORINS AND AZTREONAM. Edited result: Previously reported as Escherichia coli on 10/06/2024 at 1131 EST. Urine Urine specimen obtained by clean catch procedure / Unknown 10/03/2024 5:26 PM EST 10/04/2024 12:35 PM EST Narrative [facility] - 10/07/2024 8:02 AM EST Additional colony types present in insignificant amounts. Organism Antibiotic Method Susceptibility Escherichia coli ESBL Amoxicillin/Clavulanate ADRIÁN 16 ug/ml: Intermediate Escherichia coli ESBL Ampicillin/Sulbactam ADRIÁN >=32 ug/ml: Resistant Escherichia coli ESBL Piperacillin/Tazobactam ADRIÁN 16 ug/ml: Intermediate Escherichia coli ESBL Cefazolin (Urine) ADRIÁN >=32 ug/ml: Resistant Escherichia coli ESBL Cefoxitin ADRIÁN <=4 ug/ml: Susceptible Escherichia coli ESBL Ceftazidime ADRIÁN >=32 ug/ml: Resistant Escherichia coli ESBL Ceftriaxone ADRIÁN >=64 ug/ml: Resistant Escherichia coli ESBL Cefepime ADRIÁN 16 ug/ml: Resistant Escherichia coli ESBL Meropenem ADRIÁN <=0.25 ug/ml: Susceptible Escherichia coli ESBL Amikacin ADRIÁN 4 ug/ml: Susceptible Escherichia coli ESBL Gentamicin ADRIÁN >=16 ug/ml: Resistant Escherichia coli ESBL Ciprofloxacin ADRIÁN >=4 ug/ml: Resistant Escherichia coli ESBL Levofloxacin ADRIÁN >=8 ug/ml: Resistant Escherichia coli ESBL Nitrofurantoin ADRIÁN <=16 ug/ml: Susceptible Escherichia coli ESBL Trimethoprim/Sulfa methoxazol e ADRIÁN <=20 ug/ml: Susceptible Yariel Walton MD LAB MICROBIOLOGY - GENERAL O RDERABLES Final Result [facility] [address] [place] [address], documented in this encounter Visit Diagnoses Diagnosis Urinary tract infection, site not specified documented in this encounter Additional Health Concerns Infection Onset Date Last Indicated Resolved Time ESBL 10/03/2024 10/03/2024 documented as of this encounter Care Teams Street Light Wirer Relationship Specialty Start Date End Date Yariel Walton MD [address] [place] [address] PCP - General Family Medicine 10/12/24 documented as of this encounter
--- OUTSIDE RECORDS SUMMARY | 2025-01-06 13:48 | XMS_ITS | Encounter Summary ---
Author Organization [employer] Address 75 [facility] 7t [place] [address] Care Team Providers Care Trade Manager Name Role Phone Erika Morris MD Primary Care Provider + Reason for Visit * Reason Onset Date Comments contact oncologist 01/30/2023 Encounter Details Date Type Department Care Team ([facility] st Contact Info) Description 01/30/2023 Telephone [facility] CHC ADULT DENTAL [address] [place], [place] [phone] Nawaf Cueto, DMD [address] [place] [address] contact oncologist Social History Tobacco Use Types Packs/Day Years [...] suspected to have Coronavirus/COVID-19? No / Unsure 01/10/2023 10:17 AM EST documented as of this encounter Miscellaneous Notes * Telephone Encounter - Elina Mills - 01/30/2023 1:51 PM EST Phone number to reach Dr. Sahni Oncology at [facility] is [phone]. * Telephone Encounter - Elina Mills - 01/30/2023 1:48 PM EST Daughter of patient called in stating that patient was unable to receive infusion for her cancer treatment. Oncologist wants to speak directly to Dr. Cueto concerning dental treatment. She reports that much of what is happening is due to chemo treatment. She is also looking to have her next appt with Dr. Cueto scheduled. Last appt was missed due to having an appt with oncology that she was unableto miss. documented in this encounter Plan of Treatment Not on file documented as of this encounter Visit Diagnoses Not on filedocumented in this encounter Care Teams Trade Manager Relationship Specialty Start Date End Date Erika Morris MD [address] [place] [id number] PCP - General Family Medicine 08/07/18 [employer] 07/16/24 11/08/24 Héctor [facility] 10/19/24 documented as of this encounter
--- OUTSIDE RECORDS SUMMARY | 2025-01-06 13:48 | XMS_ITS | Encounter Summary ---
Author Organization [employer] Address [address] [facility] 7t [place] [address] Care Team Providers Care Oracle Programmer Name Role Phone Erika Morris MD Primary Care Provider + Encounter Details Date Type Department Care Team (Late st Contact Info) Description 01/30/2024 Telephone [facility] MEDICINE [address] [place], [place] [phone] Erika Morris MD [address] [place], [place] [phone] Social History Tobacco Use Types Packs/Day Years [...] encounter Miscellaneous Notes * Telephone Encounter - Penny Puentes - 01/30/2024 10:30 AM EST Tc from daughter requesting a call back in regards paperwork. documented in this encounter Plan of Treatment Not on file documented as of this encounter Visit Diagnoses Not on filedocumented in this encounter Additional Health Concerns Assessment Noted Time PHQ-9 Depression Total Score: 14 023 10:41 AM EDT documented as of this encounter Care Teams Oracle Programmer Relationship Specialty Start Date End Date Erika Morris MD [address] [place] [id number] PCP - General Family Medicine 08/07/18 [employer] 07/16/24 11/08/24 Héctor YUAN 10/19/24 documented as of this encounter
--- OUTSIDE RECORDS SUMMARY | 2025-01-06 13:48 | XMS_ITS | Encounter Summary ---
Author Organization [employer] Address 75 [facility] 7[address] [place] [address] Care Team Providers Care Packer Insulation Name Role Phone Erika Morris MD Primary Care Provider + Reason for Visit * Reason Onset Date Comments referralto [facility] 06/25/2023 referral appt [facility] 06/25/2023 Encounter Details Date Type Department Care Team (Late st Contact Info) Description 06/25/2023 Telephone [facility] ADULT DENTAL [address] [place] [address] July Acuña, DDS [address] [place] [address] [facility]; referral appt [facility] Social History Tobacco Use Types Packs/Day Years [...] Telephone Encounter - July Acuña DDS - 06/28/2023 11:16 AM EDT Yes, the antibiotics can be sent in case the pt has pain or infection. Pt should see again Dr. Cueto, within the waiting time, if needed, because he is the Oral Surgeon. Please tell the pt that she contact me as well when needed. * Telephone Encounter - Elina Mills - 06/28/2023 10:54 AM EDT Tahir called in stating that [facility] is able to get patient in for August for a consulation and then go from there. Bere and rasta would like to know if you are able to script more antibiotics to hold her over until she gets seen. At the same time tthey are looking to see if there is anything you can do to contact [facility] and see if they can get her in sooner due to hermedical condition. * Telephone Encounter - July Acuña DDS - 06/25/2023 2:47 PM EDT Referral completed, please ask pt to pick it up. Thanks, Dr. Hernandez * Telephone Encounter - Elina Mills - 06/25/2023 2:44 PM EDT Patient daughter has been informed per Dr. Hernandez that she may come by to pick new referral to be seen in [facility] * Telephone Encounter - Elina Mills - 06/25/2023 1:27 PM EDT [facility] to say that they do not feel comfortable treating patient with her condition. They are recommending patient get a new referral to [facility] in [place]. documented in this encounter Plan of Treatment Not on file documented as of this encounter Visit Diagnoses Not on filedocumented in this encounter Additional Health Concerns Assessment Noted Time PHQ-9 Depression Total Score: 14 023 10:41 AM EDT documented as of this encounter Care Teams Packer Insulation Relationship Specialty Start Date End Date Erika Morris MD [address] [place] [address] PCP - General Family Medicine 08/07/18 [employer] 07/16/24 11/08/24 Héctor YUAN 10/19/24 documented as of this encounter
--- OUTSIDE RECORDS SUMMARY | 2025-01-06 13:48 | XMS_ITS | Encounter Summary ---
Author Organization [employer] Address [address] [facility] 7t [place] [address] Care Team Providers Care Technical Sales Associate Name Role Phone Erika Morris MD Primary Care Provider + Reason for Visit * Reason Comments Med Refill Encounter Details Date Type Department Care Team ([facility] st Contact Info) Description 12/16/2023 Refill [facility] CHC MED & PEDS [address] [place], [place] [phone] Erika Morris MD [address] [place] [address] Neoplasm related pain (acute) (chronic) Social History [...] documented as of this encounter Care Teams Technical Sales Associate Relationship Specialty Start Date End Date Erika Morris MD [address] [place] [id number] PCP - General Family Medicine 08/07/18 [employer] 07/16/24 11/08/24 Héctor YUAN 10/19/24 documented as of this encounter
--- OUTSIDE RECORDS SUMMARY | 2025-01-06 13:48 | XMS_ITS | Encounter Summary ---
Author Organization [employer] Address [address] [place] [address] Care Team Providers Care Registered Nurse Maternity Name Role Phone Yariel Walton MD Primary Care Provider Encounter Details Date Type Department Care Team (Late st Contact Info) Description 09/29/2024 Lab Requisition [facility] - Main Lab [address] [facility] [place] [address] Yariel Walton MD [address] [place] [address] Chronic kidney disease, unspecified; Essential (primary) hypertension [...] Procedure Name Priority Date/Time Associated Diagnosis Comments TRAVEL PHLEBOTOMY FEE Routine 09/29/2024 8:48 AM EST Chronic kidney disease, unspecified Essential (primary) hypertension COMPLETE BLOOD COUNT Routine 09/29/2024 8:48 AM EST Chronic kidney disease, unspecified Essential (primary) hypertension MAGNESIUM Routine 09/29/2024 8:48 AM EST Chronic kidney disease, unspecified Essential (primary) hypertension BASIC METABOLIC PANEL Routine 09/29/2024 8:48 AM EST Chronic kidney disease, unspecified Essential (primary) hypertension documented in this encounter Results * Travel phlebotomy fee (09/29/2024 8:48 AM EST) Pathologist [facility] CUSTODIAL TRAVEL PHLEBOTOMY FEE Completed 09/29/2024 11:02 AM EST [facility] Blood Venous blood specimen / Unknown Venipuncture / Unknown 09/29/2024 8:48 AM EST 09/29/2024 10:37 AM EST Yariel Walton MD LAB BLOOD ORDERABLES Final R esult Performing Organization Address City/[facility]/ZIP Co de Phone Number [facility] [address] [place] [address], [place] [phone] * (ABNORMAL) Magnesium (09/29/2024 8:48 AM EST) [facility] Magnesium 1.6(L) 1.9 - 2.6 mg/dL LAB CHEMISTRY METHOD 09/29/2024 12:01 PM EST [facility] Blood Venous blood specimen / Unknown Venipuncture / Unknown 09/29/2024 8:48 AM EST 09/29/2024 10:37 AM EST Yariel Walton MD LAB BLOOD ORDERABLES Final R esult [facility] [address] [place] [address], [place] [phone] * (ABNORMAL) Basic metabolic panel (09/29/2024 8:48 AM EST) [facility] Sodium 137 133 - 145 mmol/L LAB CHEMISTRY METHOD 09/29/2024 12:01 PM EST [facility] Potassium 4.8 3.5 - 5.5 mmol/L LAB CHEMISTRY METHOD 09/29/2024 12:01 PM [facility] Chloride 108 96 - 110 mmol/L LAB CHEMISTRY METHOD 09/29/2024 12:01 PM EST [facility] CO2 21 21 - 32 mmol/L LAB CHEMISTRY METHOD 09/29/2024 12:01 PM [facility] Anion Gap 8 3 - 11 LAB CHEMISTRY METHOD 09/29/2024 12:01 PM [facility] Glucose 94 70 - 100 mg/dL LAB CHEMISTRY METHOD 09/29/2024 12:01 PM [facility] BUN 40(H) 5 - 25 mg/dL LAB CHEMISTRY METHOD 09/29/2024 12:01 PM [facility] Creatinine 1.29(H) 0.50 - 1.10 mg/dL LAB CHEMISTRY METHOD 09/29/2024 12:01 PM [facility] eGFR 42(L) >=60 mL/min/1. 73m2 LAB CHEMISTRY METHOD 09/29/2024 12:01 PM [facility] Comment:Calculation based on the??Chronic Kidney Disease Epidemiology Collaboration (CKD-EPI) equation refit??without adjustment for race. BUN/Creatinine Ratio 31.0 LAB CHEMISTRY METHOD 09/29/2024 12:01 PM [facility] Calcium 9.1 8.5 - 10.5 mg/dL LAB CHEMISTRY METHOD 09/29/2024 12:01 PM [facility] Blood Venous blood specimen / Unknown Venipuncture / Unknown 09/29/2024 8:48 AM EST 09/29/2024 10:37 AM EST Yariel Walton MD LAB BLOOD ORDERABLES Final R esult [facility] [address] [place] [address], * (ABNORMAL) Complete blood count (09/29/2024 8:48 AM EST) WBC 11.7(H) 4.8 - 10.8 K/mcL LAB HEMETOLOGY METHOD 09/29/2024 11:15 AM [facility] RBC 3.60(L) 3.80 - 4.80 M/mcL LAB HEMETOLOGY METHOD 09/29/2024 11:15 AM [facility] Hemoglobin 9.7(L) 11.5 - 16.0 g/dL LAB HEMETOLOGY METHOD 09/29/2024 11:15 AM [facility] Hematocrit 31.5(L) 35.0 - 47.0 % LAB HEMETOLOGY METHOD 09/29/2024 11:15 AM [facility] MCV 86.5 79.0 - 98.0 FL LAB HEMETOLOGY METHOD 09/29/2024 11:15 AM [facility] MCH 26.6(L) 27.0 - 32.0 pcg LAB HEMETOLOGY METHOD 09/29/2024 11:15 AM [facility] MCHC 30.8(L) 32.0 - 37.0 g/dL LAB HEMETOLOGY METHOD 09/29/2024 11:15 AM [facility] RDW 15.2(H) 11.0 - 15.0 % LAB HEMETOLOGY METHOD 09/29/2024 11:15 AM [facility] Platelets 270 130 - 400 K/mcL LAB HEMETOLOGY METHOD 09/29/2024 11:15 AM [facility] MPV 12.8(H) 7.0 - 11.0 FL LAB HEMETOLOGY METHOD 09/29/2024 11:15 AM [facility] NRBC 0.0 <1.0 % LAB HEMETOLOGY METHOD 09/29/2024 11:15 AM [facility] NRBC Absolute 0.00 <0.10 K/mcL LAB HEMETOLOGY METHOD 09/29/2024 11:15 AM [facility] Blood Venous blood specimen / Unknown Venipuncture / Unknown 09/29/2024 8:48 AM EST 09/29/2024 10:37 AM EST us Yariel Walton MD LAB BLOOD ORDERABLES Final R esult [facility] [address] [place] [address], documented in this encounter Visit Diagnoses Diagnosis Chronic kidney disease, unspecified Essential (primary) hypertension Unspecified essential hypertension documented in this encounter Additional Health Concerns Infection Onset Date Last Indicated Resolved Time ESBL 10/03/2024 10/03/2024 documented as of this encounter Care Teams Registered Nurse Maternity Relationship Specialty Start Date End Date Yariel Walton MD [address] [place] [address] PCP - General Family Medicine 10/12/24 documented as of this encounter
--- OUTSIDE RECORDS SUMMARY | 2025-01-06 13:48 | XMS_ITS | Encounter Summary ---
Author Organization [employer] Address [address] [place] [address] Care Team Providers Care Breakdown Person Name Role Phone Yariel Walton MD Primary Care Provider [phone] Encounter Details Date Type Department Care Team (Late st Contact Info) Description 10/06/[address] [facility] - Main Lab [address] [facility] [place] [address] Yariel Walton MD [address] [place] [address] Chronic kidney disease, unspecified; Essential [...] Procedure Name Priority Date/Time Associated Diagnosis Comments COMPLETE BLOOD COUNT Routine 10/06/2024 5:54 AM EST Chronic kidney disease, unspecified Essential (primary) hypertension MAGNESIUM Routine 10/06/2024 5:54 AM EST Chronic kidney disease, unspecified Essential (primary) hypertension BASIC METABOLIC PANEL Routine 10/06/2024 5:54 AM EST Chronic kidney disease, unspecified Essential (primary) hypertension documented in this encounter Results * (ABNORMAL) Magnesium (10/06/2024 5:54 AM EST) Magnesium 1.8(L) 1.9 - 2.6 mg/dL LAB CHEMISTRY METHOD 10/06/2024 4:35 PM [facility] Blood Venous blood specimen / Unknown 10/06/2024 5:54 AM EST 10/06/2024 12:07 PM EST us Yariel Walton MD LAB BLOOD ORDERABLES Final R esult [facility] [address] [place] [address], * (ABNORMAL) Basic metabolic panel (10/06/2024 5:54 AM EST) Sodium 135 133 - 145 mmol/L LAB CHEMISTRY METHOD 10/06/2024 4:35 PM [facility] Potassium 5.7(H) 3.5 - 5.5 mmol/L LAB CHEMISTRY METHOD 10/06/2024 4:35 PM [facility] Chloride 106 96 - 110 mmol/L LAB CHEMISTRY METHOD 10/06/2024 4:35 PM [facility] CO2 20(L) 21 - 32 mmol/L LAB CHEMISTRY METHOD 10/06/2024 4:35 PM [facility] Anion Gap 9 3 - 11 LAB CHEMISTRY METHOD 10/06/2024 4:35 PM [facility] Glucose 70 70 - 100 mg/dL LAB CHEMISTRY METHOD 10/06/2024 4:35 PM [facility] BUN 41(H) 5 - 25 mg/dL LAB CHEMISTRY METHOD 10/06/2024 4:35 PM [facility] Creatinine 1.69(H) 0.50 - 1.10 mg/dL LAB CHEMISTRY METHOD 10/06/2024 4:35 PM [facility] eGFR 31(L) >=60 mL/min/1. 73m2 LAB CHEMISTRY METHOD 10/06/2024 4:35 PM [facility] Comment:Calculation based on the??Chronic Kidney Disease Epidemiology Collaboration (CKD-EPI) equation refit??without adjustment for race. BUN/Creatinine Ratio 24.3 LAB CHEMISTRY METHOD 10/06/2024 4:35 PM EST [facility] Calcium 8.8 8.5 - 10.5 mg/dL LAB CHEMISTRY METHOD 10/06/2024 4:35 PM [facility] Blood Venous blood specimen / Unknown 10/06/2024 5:54 AM EST 10/06/2024 12:07 PM EST us Yariel Walton MD LAB BLOOD ORDERABLES Final R esult [facility] [address] [place] [address], [place] [phone] * (ABNORMAL) Complete blood count (10/06/2024 5:54 AM EST) WBC 9.0 4.8 - 10.8 K/mcL LAB HEMETOLOGY METHOD 10/06/2024 10:44 AM [facility] RBC 3.50(L) 3.80 - 4.80 M/mcL LAB HEMETOLOGY METHOD 10/06/2024 10:44 AM [facility] Hemoglobin 9.2(L) 11.5 - 16.0 g/dL LAB HEMETOLOGY METHOD 10/06/2024 10:44 AM [facility] Hematocrit 29.8(L) 35.0 - 47.0 % LAB HEMETOLOGY METHOD 10/06/2024 10:44 AM [facility] MCV 86.4 79.0 - 98.0 FL LAB HEMETOLOGY METHOD 10/06/2024 10:44 AM [facility] MCH 26.7(L) 27.0 - 32.0 pcg LAB HEMETOLOGY METHOD 10/06/2024 10:44 AM EST [facility] MCHC 30.9(L) 32.0 - 37.0 g/dL LAB HEMETOLOGY METHOD 10/06/2024 10:44 AM EST [facility] RDW 14.6 11.0 - 15.0 % LAB HEMETOLOGY METHOD 10/06/2024 10:44 AM [facility] Platelets 370 130 - 400 K/mcL LAB HEMETOLOGY METHOD 10/06/2024 10:44 AM [facility] MPV 12.2(H) 7.0 - 11.0 FL LAB HEMETOLOGY METHOD 10/06/2024 10:44 AM [facility] NRBC 0.0 <1.0 % LAB HEMETOLOGY METHOD 10/06/2024 10:44 AM [facility] NRBC Absolute 0.00 <0.10 K/mcL LAB HEMETOLOGY METHOD 10/06/2024 10:44 AM [facility] Blood Venous blood specimen / Unknown Venipuncture / Unknown 10/06/2024 5:54 AM EST 10/06/2024 10:14 AM EST Yariel Walton MD LAB BLOOD ORDERABLES Final R esult [facility] [address] [place] [address], documented in this encounter Visit Diagnoses Diagnosis Chronic kidney disease, unspecified Essential (primary) hypertension Unspecified essential hypertension documented in this encounter Additional Health Concerns Infection Onset Date Last Indicated Resolved Time ESBL 10/03/2024 10/03/2024 documented as of this encounter Care Teams Breakdown Person Relationship Specialty Start Date End Date Yariel Walton MD [address] [place] [address] PCP - General Family Medicine 10/12/24 documented as of this encounter
--- OUTSIDE RECORDS SUMMARY | 2025-01-06 13:48 | XMS_ITS | Encounter Summary ---
Author Organization [employer] Address [address] [facility] [address] [place] [address] Care Team Providers Care Vending Machine Attendant Name Role Phone Erika Morris MD Primary Care Provider + Encounter Details Date Type Department Care Team (Late st Contact Info) Description 07/16/2023 Orders Only [facility] ADULT DENTAL [address] [place] [address] July Acuña DDS [address] [place] [address] Social History Tobacco Use Types Packs/Day Years [...] documented as of this encounter Care Teams Vending Machine Attendant Relationship Specialty Start Date End Date Erika Morris MD [address] [place] [address] PCP - General Family Medicine 08/07/18 [employer] 07/16/24 11/08/24 Hé[employer] YU[employer] 10/19/24 documented as of this encounter
--- OUTSIDE RECORDS SUMMARY | 2025-01-06 13:48 | XMS_ITS | Encounter Summary ---
Author Organization [employer] Address [address] [facility] [address] [place] [address] Care Team Providers Care Coil Winding Supervisor Name Role Phone Erika Morris MD Primary Care Provider + Reason for Visit * Reason Onset Date Comments medication 07/12/2023 Encounter Details Date Type Department Care Team ([facility] st Contact Info) Description 07/12/2023 Telephone [facility] ADULT DENTAL [address] [place] [address] July Acuña, DDS [address] [place] [address] medication Social History Tobacco Use Types Packs/Day Years [...] Miscellaneous Notes * Telephone Encounter - Elina Manuels - 07/16/2023 8:59 AM EDT Granddaughter called in today to talk to you. She is trying to get a script for antibiotics. She has her consultation visit in [place] in August and has run out of script and Altagracia is beginning to complain of some pain. Can you please call patient. I recall from last message that you were wiling to speak with her but when I dialed provider number, provider with patient. If you can pls reach out to patient to discuss options for medication treatment. Message was sent out during provider vacation and so following up. Grand daughter number [phone] * Telephone Encounter - Elina Mills - 07/12/2023 3:19 PM EDT Patient was referred to Hospital in [place] for treatment. She has an appt in August. Dr Hernandez hadmentioned in a message prior that she would send antibiotic to office if patient was in pain and that she would talk to grand daughter or daughter if she needed to brut she is on vacation this week. She is looking to have something sent to pharmacy because she is in pain. Can you help? documented in this encounter Plan of Treatment Not on file documented as of this encounter Visit Diagnoses Not on filedocumented in this encounter Additional Health Concerns Assessment Noted Time PHQ-9 Depression Total Score: 14 023 10:41 AM EDT documented as of this encounter Care Teams Coil Winding Supervisor Relationship Specialty Start Date End Date Erika Morris MD [address] [place] [address] PCP - General Family Medicine 08/07/18 [employer] 07/16/24 11/08/24 [employer] 10/19/24 documented as of this encounter
--- OUTSIDE RECORDS SUMMARY | 2025-01-06 13:48 | XMS_ITS | Encounter Summary ---
Author Organization [employer] Address [address] [facility] [address] [place] [address] Care Team Providers Care Jigsaw Operator Name Role Phone Erika Morris MD Primary Care Provider + Reason for Visit * Reason Onset Date Comments Prior Authoroization for consultation 08/30/2023 Encounter Details Date Type Department Care Team ([facility] st Contact Info) Description 08/30/2023 Telephone C ADULT DENTAL [address] [place] [address] July Acuña, DDS [address] [place], [place] [phone] Prior Authoroization for consultation Social History Tobacco Use Types Packs/Day Years [...] encounter Miscellaneous Notes * Telephone Encounter - Rose Pérez - 08/30/2023 11:46 AM EDT Tc from pts grandchild in regards to message below. Please contact Whitney at [phone] * Telephone Encounter - July Acuña DDS - 08/30/2023 11:19 AM EDT Spoke with pt granddaughter who is in charge of Altagracia, and she explained to me that she received a call from [facility] and they need to speak to the Medical department, not Dental. Advised her to please callthem back for specific instructions and then contact the PCP. * Telephone Encounter - Elina Mills - 08/30/2023 8:51 AM EDT Altagracia Kelley daughter called. She has her consultation in [facility] in [place] . The hospital contacted office in [place], unsure why, asking for a Prior Authorization for her visit over there. Basically they are looking for an ICD10 K08.9 as the reasoning and need for appt. I tried to get as much details as possible from daughter but this is all that she was able to give me. She provided me with 2 phones numbers to reach out for clarification: [phone] and [phone] She also provided a procedure code 86915 unsure if that is for the appt on the day she is going to [facility]. She is not sure what any of this means but she needs to get this taken care of prior to Saturday appt for her mom to be seen. I did tell her that you may need to reach out to her for futher information regarding this. documented in this encounter Plan of Treatment Not on file documented as of this encounter Visit Diagnoses Not on filedocumented in this encounter Additional Health Concerns Assessment Noted Time PHQ-9 Depression Total Score: 14 023 10:41 AM EDT documented as of this encounter Care Teams Jigsaw Operator Relationship Specialty Start Date End Date Erika Morris MD [address] [place] [address] PCP - General Family Medicine 08/07/18 [employer] 07/16/24 11/08/24 H[employer] YUAN 10/19/24 documented as of this encounter
--- OUTSIDE RECORDS SUMMARY | 2025-01-06 13:48 | XMS_ITS | Clinical Summary ---
Author Organization [facility] Address [address] [place] [address] Phone Care Team Providers Care Back Padder Name Role Phone Yariel Walton MD Primary Care Provider Encounters Date Type Department Care Team Description 10/19/2024 Lab Requisition [facility] Lab [address] [place] [phone] Yariel Walton MD Chronic kidney disease, unspecified; Essential (primary) hypertension 10/12/2024 Lab Requisition [facility] Lab [address] [place] [phone] Yariel Walton MD Chronic kidney disease, unspecified; Essential (primary) hypertension 10/06/2024 Lab Requisition [facility] Lab [address] [place] [phone] Yariel Walton MD Chronic kidney disease, unspecified; Essential (primary) hypertension from Last 3 Months Surgical History Surgery Date Site/Laterality Comments CHOLECYSTECTOMY PROCEDURE: LAPAROSCOPY, CHOLECYSTECTOMY FOOT SURGERY PROCEDURE: HISTORICAL FOOT SURGERY; COMMENT: had a glass and ahd surgery to be removed Family History Medical History Relation Name Comments Diabetes Daughter 1 thyroid, anxiet y Asthma Mother Relation Name Status Comments Daughter 1 Daughter 2 Father of tetanus Mother Social History Tobacco Use Types Packs/Day Years [...] on file Sexual Orientation Not on file Obstetrics History Plan of Treatment Health Maintenance Due Date Last Done Comments Hepatitis A Vaccines (1 of 2 - Risk 2-dose series) 1964 Zoster Vaccines (1 of 2) 1964 DTaP,Tdap,and Td Vaccines (2 - Td or Tdap) 02/04/2019 01/07/2019 RSV Immunization Patients 60+ Years Old (1 - 1-dose 75+ series) 2019 Pneumococcal Vaccine: 50+ Years (3 of 3 - PCV) 01/07/2020 01/07/2019, 06/28/2014 COVID-19 Vaccine (3 - Pfizer risk series) 08/30/2021 08/02/2021, 05/23/2021 Influenza Vaccine (#1) 2024 , 09/03/2018, 09/03/2017 Cholesterol Screening (Lipid Panel) 09/29/2024 Depression Screening 09/29/2024 03/28/2023 Falls Risk Assessment 09/29/2024 Medicare Annual Wellness Visit 09/29/2024 Osteoporosis Screening (Bone Density Screening) 09/29/2024 Social Influencers of Health Screening 09/29/2024 Hypertension/CHF/CAD Annual BMP Blood Test 10/13/2025 10/13/2024, 10/06/2024, 09/29/2024, Additional history exists HIB Vaccines Aged Out [...] on patient's age to complete this topic MMR Vaccines Aged Out No longer eligi ble based on patient's age to complete this topic Meningococcal ACWY Vaccine Aged Out N o longer eligible based on patient's age to complete this topic Meningococcal B Vacine Aged Out No lo nger eligible based on patient's age to complete this topic RSV Immunization Patients Under 20 months Aged Out No longer eligible based on patient's age to complete this topic Varicella Vaccines Aged Out No longer eligible based on patient's age to complete this topic Procedures Procedure Name Priority Date/Time Associated Diagnosis Comments MAGNESIUM Routine 10/13/2024 5:15 AM EST Chronic kidney disease, unspecified Essential (primary) hypertension BASIC METABOLIC PANEL Routine 10/13/2024 5:15 AM EST Chronic kidney disease, unspecified Essential (primary) hypertension COMPLETE BLOOD COUNT Routine 10/13/2024 5:15 AM EST Chronic kidney disease, unspecified Essential (primary) hypertension MAGNESIUM Routine 10/06/2024 5:54 AM EST Chronic kidney disease, unspecified Essential (primary) hypertension BASIC METABOLIC PANEL Routine 10/06/2024 5:54 AM EST Chronic kidney disease, unspecified Essential (primary) hypertension COMPLETE BLOOD COUNT Routine 10/06/2024 5:54 AM EST Chronic kidney disease, unspecified Essential (primary) hypertension from Last 3 Months Results * (ABNORMAL) Complete blood count (10/13/2024 5:15 AM EST) Only the most recent of2 resultswithin the time period is included. WBC 6.8 4.8 - 10.8 K/mcL LAB HEMETOLOGY METHOD 10/13/2024 8:28 AM [facility] RBC 3.10(L) 3.80 - 4.80 M/mcL LAB HEMETOLOGY METHOD 10/13/2024 8:28 AM [facility] Hemoglobin 8.2(L) 11.5 - 16.0 g/dL LAB HEMETOLOGY METHOD 10/13/2024 8:28 AM [facility] Hematocrit 27.7(L) 35.0 - 47.0 % LAB HEMETOLOGY METHOD 10/13/2024 8:28 AM [facility] MCV 89.4 79.0 - 98.0 FL LAB HEMETOLOGY METHOD 10/13/2024 8:28 AM [facility] MCH 26.5(L) 27.0 - 32.0 pcg LAB HEMETOLOGY METHOD 10/13/2024 8:28 AM [facility] MCHC 29.6(L) 32.0 - 37.0 g/dL LAB HEMETOLOGY METHOD 10/13/2024 8:28 AM EST [facility] RDW 14.9 11.0 - 15.0 % LAB HEMETOLOGY METHOD 10/13/2024 8:28 AM EST [facility] Platelets 290 130 - 400 K/mcL LAB HEMETOLOGY METHOD 10/13/2024 8:28 AM EST [facility] MPV 11.7(H) 7.0 - 11.0 FL LAB HEMETOLOGY METHOD 10/13/2024 8:28 AM EST [facility] NRBC 0.0 <1.0 % LAB HEMETOLOGY METHOD 10/13/2024 8:28 AM [facility] NRBC Absolute 0.00 <0.10 K/mcL LAB HEMETOLOGY METHOD 10/13/2024 8:28 AM EST [facility] Blood Venous blood specimen / Unknown Venipuncture / Unknown 10/13/2024 5:15 AM EST 10/13/2024 8:18 AM EST us Yariel Walton MD LAB BLOOD ORDERABLES Final R esult Performing Organization Address City/[facility] [[email or web address]] Co de Phone Number [facility] [address] [place] [address], [place] [phone] * Magnesium (10/13/2024 5:15 AM EST) Only the most recent of2 resultswithin the time period is included. Magnesium 1.9 1.9 - 2.6 mg/dL LAB CHEMISTRY METHOD 10/13/2024 8:52 AM EST [facility] Blood Venous blood specimen / Unknown Venipuncture / Unknown 10/13/2024 5:15 AM EST 10/13/2024 8:18 AM EST us Yariel Walton MD LAB BLOOD ORDERABLES Final R esult [facility] [address] [place] [address], * (ABNORMAL) Basic metabolic panel (10/13/2024 5:15 AM EST) Only the most recent of2 resultswithin the time period is included. Sodium 138 133 - 145 mmol/L LAB CHEMISTRY METHOD 10/13/2024 8:52 AM [facility] Potassium 5.4 3.5 - 5.5 mmol/L LAB CHEMISTRY METHOD 10/13/2024 8:52 AM [facility] Chloride 109 96 - 110 mmol/L LAB CHEMISTRY METHOD 10/13/2024 8:52 AM [facility] CO2 25 21 - 32 mmol/L LAB CHEMISTRY METHOD 10/13/2024 8:52 AM [facility] Anion Gap 4 3 - 11 LAB CHEMISTRY METHOD 10/13/2024 8:52 AM [facility] Glucose 78 70 - 100 mg/dL LAB CHEMISTRY METHOD 10/13/2024 8:52 AM [facility] BUN 33(H) 5 - 25 mg/dL LAB CHEMISTRY METHOD 10/13/2024 8:52 AM [facility] Creatinine 1.52(H) 0.50 - 1.10 mg/dL LAB CHEMISTRY METHOD 10/13/2024 8:52 AM EST [facility] eGFR 35(L) >=60 mL/min/1. 73m2 LAB CHEMISTRY METHOD 10/13/2024 8:52 AM [facility] Comment:Calculation based on the??Chronic Kidney Disease Epidemiology Collaboration (CKD-EPI) equation refit??without adjustment for race. BUN/Creatinine Ratio 21.7 LAB CHEMISTRY METHOD 10/13/2024 8:52 AM [facility] Calcium 8.3(L) 8.5 - 10.5 mg/dL LAB CHEMISTRY METHOD 10/13/2024 8:52 AM [facility] Blood Venous blood specimen / Unknown Venipuncture / Unknown 10/13/2024 5:15 AM EST 10/13/2024 8:18 AM EST us Yariel Walton MD LAB BLOOD ORDERABLES Final R esult [facility] [address] [place] [address], from Last 3 Months Additional Health Concerns Infection Onset Date Last Indicated ESBL 10/03/2024 10/03/2024 Insurance MEDICARE Care Teams Back Padder Relationship Specialty Start Date End Date Yariel Walton MD [address] [place] [address] PCP - General Family Medicine 10/12/24
--- OUTSIDE RECORDS SUMMARY | 2025-01-06 13:48 | XMS_ITS | Encounter Summary ---
Author Organization [employer] Address [address] [facility] 7t [place] [address] Care Team Providers Care Transportation Lead Name Role Phone Erika Morris MD Primary Care Provider + Reason for Visit * Reason Comments Med Refill Encounter Details Date Type Department Care Team (Late st Contact Info) Description 07/18/2023 Refill [facility] [address] [place], [place] [phone] Ariadne Panchal MD [address] [place], [place] [phone] Primary insomnia Social History Tobacco Use Types [...] documented as of this encounter Care Teams Transportation Lead Relationship Specialty Start Date End Date Erika Morris MD [address] [place] [address] PCP - General Family Medicine 08/07/18 [email or web address] 07/16/24 11/08/24 Hé[employer] YUAN 10/19/24 documented as of this encounter
--- OUTSIDE RECORDS SUMMARY | 2025-01-06 13:48 | XMS_ITS | Encounter Summary ---
Author Organization [employer] Address [address] [facility] [address] [place] [address] Care Team Providers Care Ad Taker Name Role Phone Erika Morris MD Primary Care Provider + Reason for Visit * Reason Onset Date Comments status 12/07/2022 Encounter Details Date Type Department Care Team ([facility] st Contact Info) Description 12/07/2022 Telephone [facility] [address] [place] [address] Erika Morris MD [address] [place] [address] status Social History Tobacco Use Types Packs/Day Years [...] encounter Miscellaneous Notes * Telephone Encounter - Daysi Mccabe - 12/07/2022 10:49 AM EST TC from [place] daughter of pt requesting status on Oxycodone medication. PCP Dr. Morris documented in this encounter Plan of Treatment Not on file documented as of this encounter Visit Diagnoses Not on filedocumented in this encounter Care Teams Ad Taker Relationship Specialty Start Date End Date Erika Morris MD [address] [place] [phone] PCP - General Family Medicine 08/07/18 [employer] 07/16/24 11/08/24 Héctor YUAN 10/19/24 documented as of this encounter
--- OUTSIDE RECORDS SUMMARY | 2025-01-06 13:48 | XMS_ITS | Clinical Summary ---
Author Organization [facility] Address [address] [place] [address] [place] [address] Phone Care Team Providers Care Clean Room Operator Name Role Phone Erika Morris MD Primary Care Provider + [phone] Allergies No known active allergies Medications aspirin (ST EULALIA) 81 MG EC tablet Take 1 tablet by mouth 1 (one) time each day Active lenalidomide (REVLIMID) 10 MG capsule Take 1 capsule by mouth 1 (one) time each day Active levothyroxine (SYNTHROID, LEVOTHROID) 75 MCG tablet Take 75 mcg by mouth 1 (one) time each day 01/03/2021 Active acyclovir (ZOVIRAX) 400 MG tablet Take 1 tablet by mouth 1 (one) time each day 01/12/2021 Active FLUoxetine (PROzac) 40 MG capsule Take 20 mg by mouth 1 (one) time each day in the morning 12/05/2020 Active mirtazapine (REMERON) 30 MG tablet Take 30 mg by mouth at bed time 01/16/2021 Active oxyCODONE (ROXICODONE) 10 MG immediate release tablet Take 1 tablet by mouth every 12 (twelve) hours Active omeprazole (PriLOSEC) [address] capsule Take 1 capsule by mouth 2 (two) times a day 05/01/2021 Active ondansetron (ZOFRAN) 4 MG tablet Take 4 mg by mouth every 8 (eight) hours if needed for nausea or vomiting Active Oyster Shell Calcium 500 MG tablet 05/13/2022 Active Aspirin Low Dose 81 MG chewable tablet CHEW 1 TABLET EVERY DAY 05/07/2022 Active cefuroxime (CEFTIN) 500 MG tablet 05/13/2022 Active Calcium Carb-Cholecalci ferol (Calcium-Vitami n D3) 250-125 MG-UNIT tablet Take 2 tablets by mouth 2 (two) times a day 05/14/2022 Active Active Problems Problem Noted Date Diagnosed Date Hyperkalemia 07/09/2024 Injury of kidney 11/01/2022 Stage 3a chronic kidney disease 08/02/2021 Chronic kidney disease, stage 2 (mild) Immunizations Name Administration Dates Next Due Influenza (IM) Preservative Free 09/19/2024 Influenza, Quadrivalent, Preservative Free 09/03,09/03/2017 Pfizer SARS-COV-2 08/02/2021,05/23/2021 Pneumococcal Polysaccharide 01/07/2019, 4 Tdap 01/07/2019 Family History Medical History Relation Comments Cancer Child Diabetes Child Relation Status Comments Child Father Mother Social History Tobacco Use Types Packs/Day Years Used Date Smoking Tobacco: Every Day Cigarettes Started: 09/23/2019 Smokeless Tobacco: Never Tobacco Cessation:Ready to Q uit: Not Asked; Counseling Given: Not Answered Alcohol Use Standard Drinks/Week Comments Not Currently 0 (1 standard drink = 0.6 oz pur e alcohol) Comments Unknown Sex and Gender Information Value Date Recorded Sex Assigned at Not on file Legal Sex Female 4:55 PM EST Gender Identity Not on file Sexual Orientation Not on file Last Filed Vital Signs Vital Sign Reading Time Taken Comments Blood Pressure 130/62 08/08/2022 3:30 PM EDT Pulse 55 08/08/2022 3:30 PM EDT Temperature - - Respiratory Rate - - Oxygen Saturation 99% 11/08/2021 2:43 PM EST Inhaled Oxygen Concentration - - Weight 74.7 kg (164 lb 9.6 oz) 08/08/2022 3:30 P M EDT Height 162.6 cm (5' 4 ) 04/01/2020 12:00 PM EDT Body Mass Index 28.25 04/01/2020 12:00 PM EDT Plan of Treatment Health Maintenance Due Date Last Done Comments Pneumococcal Vaccine: 65+ Years (3 of 3 - PCV) 01/07/2020 01/07/2019, 06/28/2014 Influenza Vaccine Completed 09/19/2024, 09/03/2018, 09/03/2017 Hepatitis B Vaccine Aged Out No longe r eligible based on patient's age to complete this topic Procedures Procedure Name Priority Date/Time Associated Diagnosis Comments ALT EXT LABS Routine 11/25/2024 from Last 3 Months Results * (ABNORMAL) ALT EXT LABS (11/25/2024) BUN 17 4 - 21 mg/dL Creatinine 0.74 0.50 - 1.10 mg/dL Calcium 7.5(A) 8.7 - 10.7 mg/dL Sodium 143 137 - 147 Potassium 4.0 3.4 - 5.5 Chloride 115.0(A) 99.0 - 108.0 Magnesium 1.6 1.6 - 2.4 11/25/2024 [facility] Provider LAB BLOOD ORDERABLES Mae l Result from Last 3 Months Insurance MEDICARE MEDICARE Care Teams Clean Room Operator Relationship Specialty Start Date End Date Erika Morris MD [address] [place] [id number] PCP - General Internal Medicine 11/08/21
--- OUTSIDE RECORDS SUMMARY | 2025-01-06 13:48 | XMS_ITS | Encounter Summary ---
Author Organization [employer] Address [address] [facility] 7t [place] [address] Care Team Providers Care Trouble Lineman Name Role Phone Erika Morris MD Primary Care Provider + Reason for Visit * Reason Comments Med Refill Encounter Details Date Type Department Care Team ([facility] st Contact Info) Description 07/01/2024 Refill [facility]INE [address] [place], [place] [phone] Erika Morris MD [address] [place], [place] [phone] Social History Tobacco Use Types Packs/Day Years [...] documented as of this encounter Care Teams Trouble Lineman Relationship Specialty Start Date End Date Erika Morris MD [address] [place] [address] PCP - General Family Medicine 08/07/18 [employer] 07/16/24 11/08/24 [facility] 10/19/24 documented as of this encounter
--- OUTSIDE RECORDS SUMMARY | 2025-01-06 13:48 | XMS_ITS | Encounter Summary ---
Author Organization [employer] Address [address] [facility] [address] [place] [address] Care Team Providers Care Funeral Service Manager Name Role Phone Erika Morris MD Primary Care Provider + Reason for Visit * Reason Comments Med Refill Encounter Details Date Type Department Care Team (Late st Contact Info) Description 05/27/2023 Refill [facility] [address] [place], [place] [phone] Mariia Harper DO [address] [place] [address] Neoplasm related pain (acute) (chronic) Social History [...] documented as of this encounter Care Teams Funeral Service Manager Relationship Specialty Start Date End Date Erika Morris MD [address] [place] [phone] PCP - General Family Medicine 08/07/18 [employer] 07/16/24 11/08/24 Hé[employer] YUAN 10/19/24 documented as of this encounter
--- OUTSIDE RECORDS SUMMARY | 2025-01-06 13:48 | XMS_ITS | Encounter Summary ---
Author Organization [employer] Address [address] [place] [address] Care Team Providers Care Design Studio Consultant Name Role Phone Yariel Walton MD Primary Care Provider Encounter Details Date Type Department Care Team (Late st Contact Info) Description 10/12/2024 Lab Requisition [facility] Lab [address] [facility] [address] Yariel Walton MD [address] [place] [address] Chronic kidney disease, unspecified; Essential [...] Associated Diagnosis Comments COMPLETE BLOOD COUNT Routine 10/13/2024 5:15 AM EST Chronic kidney disease, unspecified Essential (primary) hypertension MAGNESIUM Routine 10/13/2024 5:15 AM EST Chronic kidney disease, unspecified Essential (primary) hypertension BASIC METABOLIC PANEL Routine 10/13/2024 5:15 AM EST Chronic kidney disease, unspecified Essential (primary) hypertension documented in this encounter Results * Magnesium (10/13/2024 5:15 AM EST) Magnesium 1.9 1.9 - 2.6 mg/dL LAB CHEMISTRY METHOD 10/13/2024 8:52 AM [facility] Blood Venous blood specimen / Unknown Venipuncture / Unknown 10/13/2024 5:15 AM EST 10/13/2024 8:18 AM EST us Yariel Walton MD LAB BLOOD ORDERABLES Final R esult [facility] [address] [place] [address], * (ABNORMAL) Basic metabolic panel (10/13/2024 5:15 AM EST) Sodium 138 133 - 145 mmol/L LAB CHEMISTRY METHOD 10/13/2024 8:52 AM [facility] Potassium 5.4 3.5 - 5.5 mmol/L LAB CHEMISTRY METHOD 10/13/2024 8:52 AM [facility] Chloride 109 96 - 110 mmol/L LAB CHEMISTRY METHOD 10/13/2024 8:52 AM [facility] CO2 25 21 - 32 mmol/L LAB CHEMISTRY METHOD 10/13/2024 8:52 AM [facility] Anion Gap 4 3 - 11 LAB CHEMISTRY METHOD 10/13/2024 8:52 AM [facility] Glucose 78 70 - 100 mg/dL LAB CHEMISTRY METHOD 10/13/2024 8:52 AM [facility] BUN 33(H) 5 - 25 mg/dL LAB CHEMISTRY METHOD 10/13/2024 8:52 AM [facility] Creatinine 1.52(H) 0.50 - 1.10 mg/dL LAB CHEMISTRY METHOD 10/13/2024 8:52 AM [facility] eGFR 35(L) >=60 mL/min/1. 73m2 LAB CHEMISTRY METHOD 10/13/2024 8:52 AM [facility] Comment:Calculation based on the??Chronic Kidney Disease Epidemiology Collaboration (CKD-EPI) equation refit??without adjustment for race. BUN/Creatinine Ratio 21.7 LAB CHEMISTRY METHOD 10/13/2024 8:52 AM [facility] Calcium 8.3(L) 8.5 - 10.5 mg/dL LAB CHEMISTRY METHOD 10/13/2024 8:52 AM [facility] Blood Venous blood specimen / Unknown Venipuncture / Unknown 10/13/2024 5:15 AM EST 10/13/2024 8:18 AM EST us Yariel Walton MD LAB BLOOD ORDERABLES Final R esult [facility] [address] [place] [address], [place] [phone] * (ABNORMAL) Complete blood count (10/13/2024 5:15 AM EST) WBC 6.8 4.8 - 10.8 K/mcL LAB HEMETOLOGY METHOD 10/13/2024 8:28 AM [facility] RBC 3.10(L) 3.80 - 4.80 M/mcL LAB HEMETOLOGY METHOD 10/13/2024 8:28 AM [facility] Hemoglobin 8.2(L) 11.5 - 16.0 g/dL LAB HEMETOLOGY METHOD 10/13/2024 8:28 AM [facility] Hematocrit 27.7(L) 35.0 - 47.0 % LAB HEMETOLOGY METHOD 10/13/2024 8:28 AM [facility] MCV 89.4 79.0 - 98.0 FL LAB HEMETOLOGY METHOD 10/13/2024 8:28 AM [facility] MCH 26.5(L) 27.0 - 32.0 pcg LAB HEMETOLOGY METHOD 10/13/2024 8:28 AM EST [facility] MCHC 29.6(L) 32.0 - 37.0 g/dL LAB HEMETOLOGY METHOD 10/13/2024 8:28 AM EST [facility] RDW 14.9 11.0 - 15.0 % LAB HEMETOLOGY METHOD 10/13/2024 8:28 AM [facility] Platelets 290 130 - 400 K/mcL LAB HEMETOLOGY METHOD 10/13/2024 8:28 AM [facility] MPV 11.7(H) 7.0 - 11.0 FL LAB HEMETOLOGY METHOD 10/13/2024 8:28 AM [facility] NRBC 0.0 <1.0 % LAB HEMETOLOGY METHOD 10/13/2024 8:28 AM [facility] NRBC Absolute 0.00 <0.10 K/mcL LAB HEMETOLOGY METHOD 10/13/2024 8:28 AM [facility] Blood Venous blood specimen / Unknown Venipuncture / Unknown 10/13/2024 5:15 AM EST 10/13/2024 8:18 AM EST Yariel Walton MD LAB BLOOD ORDERABLES Final R esult [facility] [address] [place] [address], documented in this encounter Visit Diagnoses Diagnosis Chronic kidney disease, unspecified Essential (primary) hypertension Unspecified essential hypertension documented in this encounter Additional Health Concerns Infection Onset Date Last Indicated Resolved Time ESBL 10/03/2024 10/03/2024 documented as of this encounter Care Teams Design Studio Consultant Relationship Specialty Start Date End Date Yariel Walton MD [address] [place] [address] PCP - General Family Medicine 10/12/24 documented as of this encounter
--- OUTSIDE RECORDS SUMMARY | 2025-01-06 13:48 | XMS_ITS | Encounter Summary ---
Author Organization [employer] Address [address] [facility] 7t [place] [address] Care Team Providers Care Hair Boiler Name Role Phone Erika Morris MD Primary Care Provider + Reason for Visit * Reason Comments Med Refill Encounter Details Date Type Department Care Team ([facility] st Contact Info) Description 12/16/2023 Refill [facility] [address] [place], [place] [phone] Erika Morris MD [address] [place] [address] Neoplasm related pain (acute) (chronic) Social History [...] documented as of this encounter Care Teams Hair Boiler Relationship Specialty Start Date End Date Erika Morris MD [address] [place] [phone] PCP - General Family Medicine 08/07/18 [employer] 07/16/24 11/08/24 Héctor YUAN 10/19/24 documented as of this encounter
[2025-01-06 14:11] LABS: Estimated Average Glucose 100 mg/dL; Hemoglobin A1C 83.4761 umol/L; Hemoglobin A1c % 5.1 % (<6.0); Total Hemoglobin (HGBA1C) 2585.4653 umol/L
[2025-01-06 14:29] LABS: Anion Gap 11 (12-20); Blood Urea Nitrogen 17 mg/dL (9-16); Carbon Dioxide 25 mmol/L (22-29); Chloride 112 mmol/L (96-108); Estimated Glomerular Filt Rate > 60; Glucose Random 102 mg/dL (60-115); Magnesium 1.2 mg/dL (1.6-2.6); Potassium 4.2 mmol/L (3.3-5.1); Sodium 144 mmol/L (135-145)
[2025-01-06 14:34] LABS: TSH reflex Free T4 0.42 uIU/mL (0.32-4.0)
== END 2025-01-06 12:10 | disposition home or self-care (01) ==
LOC: HO.HHCL 12:09
PROVIDERS: Visit Provider Internal Medicine
DX: Z13.1 Encounter for screening for diabetes mellitus (principal); E83.51 Hypocalcemia; E83.42 Hypomagnesemia; R35.0 Frequency of micturition; K52.9 Noninfective gastroenteritis and colitis, unspecified
CPT/HCPCS: 36415; 80048; 83036; 83735; 84443

== ENCOUNTER 2025-02-12 15:54 | Emergency (ER) | payer MEDICARE, SELFPAY ==
--- NOTE | 2025-02-12 | ECG_ITS ---
Test Reason : chest pain Blood Pressure : */* mmHG Vent. Rate : 59 BPM Atrial Rate : 59 BPM P-R Int : 114 ms QRS Dur : 82 ms QT Int : 512 ms P-R-T Axes : 34 34 27 degrees QTcB Int : 506 ms Sinus bradycardia with Premature atrial complexes with Aberrant conduction ST & T wave abnormality, consider anterior ischemia Abnormal ECG When compared with ECG of 27-Nov-2024 11:23, Premature ventricular complexes are no longer Present Aberrant conduction is now Present Nonspecific T wave abnormality, worse in Lateral leads Referred By: Generic ED Physician Electronically Signed By: Iraj Hernandez
--- NOTE | ~2025-02-12 | XR_ITS ---
CLINICAL HISTORY: left sided chest pain 2 views chest Comparison: CR/AR/SR - XR CHEST 1V - 02/25/24 17:24 EDT Findings: Cardiac and mediastinal contours are normal. Mild interstitial prominence with scattered peribronchial thickening. No focal consolidation. No effusion. No pneumothorax. No acute osseous finding. Chronic changes of the right acromion. Impression: Mild interstitial prominence with scattered peribronchial thickening. No focal consolidation. This document has been electronically signed by: Moo Alejandre MD on 02/12/2025 17:25:10
--- NOTE | ~2025-02-12 | CT_ITS ---
CLINICAL HISTORY: left sided chest pain, SOB CT angiography chest with contrast. 3D Postprocessing. Comparison: CT/MD/SR - CT ANGIO CHEST PE PROTOCOL - 11/27/23 15:42 EST Findings: No evidence of pulmonary embolism or heart strain by CT. Moderate diffuse atherosclerotic disease of the coronary arteries. No significant mediastinal adenopathy. No discrete thyroid lesion. Lungs exhibit interlobular septal thickening at the lung bases. Cluster of blebs noted within the right lower lobe. No effusion. No pneumothorax. Acute appearing left 4th rib fracture, axial 20. Unhealed right 9th and 10th rib fractures. Several old bilateral rib fractures are noted. Impression: No evidence of pulmonary embolism. Mild airway thickening and interstitial thickening. Acute, subacute and chronic rib fractures are noted as detailed. This document has been electronically signed by: Moo Alejandre MD on 02/12/2025 22:43:17
[2025-02-12 16:25] VITALS: BP 132/76; BP 139/78; PULSE 56; PULSE 59; RESP 18; TEMP 36.4; O2SAT 98; BMI 29.4
--- NOTE | 2025-02-12 16:42 | ED_ITS ---
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 Reports chest pain was located to left chest without radiation. This lasted for approximately 30 minutes before completely resolving. This morning while cleaning her house around 10 am, she began to have left sided chest pain again. This has been intermittent since 10 this morning. not exertional, not relieved w/ rest, not positional. Admits to associated nausea without vomiting and shortness of breath. She states her neighbor heard her complaining of chest pain and called EMS. She states the pain subsided by the time they had arrived. En route, patient was given 324 mg aspirin and 2 spray SL nitro. She denies any chest pain at present. Denies any history of similar. Denies hx of CO. Denies recent upper respiratory sx. States she quit smoking tobacco 6 mo ago. She is quite well appearing. Her OFFICE EMPLOYEE and neighbor are at bedside. grants director utilized throughout visit to communicate with patient. Related Data Home Medications ?Medication ?Instructions ?Recorded ?Confirmed levothyroxine 75 mcg tablet 75 mcg PO DAILY 10/27/20 01/12/25 aspirin 81 mg chewable tablet 81 mg PO DAILY 12/16/20 01/12/25 mirtazapine 30 mg tablet 30 mg PO BEDTIME 12/16/20 01/12/25 fluoxetine 40 mg capsule 1 cap PO DAILY 05/12/22 01/12/25 loperamide 2 mg tablet 2 mg PO Q4H PRN Loose Stool 02/25/24 01/12/25 trazodone 50 mg tablet 12.5 mg PO BID 09/18/24 01/12/25 lidocaine 5 % topical cream 1 appl topical BID 11/24/24 01/12/25 Previous Rx's ?Medication ?Instructions ?Recorded calcium carbonate (Oyster Shell 500 mg PO TID 30 days #90 tabs 05/13/22 Calcium 500) ondansetron 4 mg disintegrating 4 mg PO Q8H PRN nausea and 09/02/24 tablet vomiting #5 tabs lenalidomide 10 mg capsule 10 mg PO DAILY #14 caps 09/15/24 (Revlimid) magnesium oxide 250 mg PO BID #60 tabs 09/24/24 sodium bicarbonate 650 mg tablet 650 mg PO TID #90 tabs 09/24/24 calcitriol 0.25 mcg capsule 0.25 mcg PO DAILY #7 caps 11/27/24 famotidine 20 mg tablet (Pepcid) 20 mg PO DAILY #30 tabs 11/27/24 lenalidomide 10 mg capsule 10 mg PO DAILY #14 caps 11/30/24 (Revlimid) Allergies Allergy/AdvReac Type Severity Reaction Status Date / Time No Known Allergies Allergy Verified 02/12/25 16:28 [No Known Allergies*] Review of Systems 2 Review of Systems: Yes all other systems are reviewed and are negative PMFSH Past Medical History Attestation statement: The following information was validated with the patient. Source: old records reviewed, obtained from family and nursing notes reviewed Medical History Multiple myeloma Chronic diarrhea Tubulovillous adenoma Depression H/O gastroesophageal reflux (GERD) Hx of multiple myeloma Hypothyroidism Surgical History H/O tooth extraction History of bone marrow biopsy History of cholecystectomy Family History Family History Daughter Diabetes Thyroid cancer Social History Social History Household Members: Family Household Members Other:: adult son Housing: Apartment Are you a primary pharmacist critical care to a significant other at home: No Do you presently have visiting nurse or other home services: Yes Alcohol intake: never Comment: 1:[address] until 23:00 due to staffing constraints Patient Tobacco Use Status: Former Tobacco user Tobacco use type: Cigarette Years Smoked: 20 Smoked in Last 30 Days: No e-Cigarette/Vaping Use: Never Used Second Hand Smoke Exposure: No Use of substances other than those prescribed or required for medical reasons: No Substance Use Type: Marijuana Advance Directives: Yes Advance Directives on File: Yes Advance Directives Date on File: 03/15/21 Do you have a plan to hurt others: No Plan service: No Current occupational status: unemployed Physical Exam 2 Vital Signs: Vital Signs: Last Vital Signs Temp 97.9 F 02/13/25 02:05 Pulse 54 02/13/25 02:05 Resp 20 02/13/25 02:05 BP 161/69 H 02/13/25 02:05 Pulse Ox 98 02/13/25 02:05 O2 Del Method Room Air 02/13/25 02:05 BMI result Body Mass Index 29.4 bradycardic, vitals otherwise wnl General: Well appearing, in no acute distress. Skin: Warm, dry, intact. No rashes or lesions. Head: Normocephalic, atraumatic. EENT: Hearing is intact b/l. Conjunctiva clear. PERRLA. EOM intact. Moist mucous membranes.? Neck: Supple without LAD Cardiac: Chest wall symmetric. RRR. no jvd. no reproducible tenderness to anterior/lateral/posterior chest wall. no deformity/ crepitus. Lungs: Normal respiratory effort without accessory muscle use. CTA bilaterally. No rales, rhonchi, or wheezes.? Abdomen: Soft, non-tender, non-distended. No rebound tenderness or guarding. Positive BS x4. Back: No midline spinous or paraspinal tenderness. No step off deformity. Ext: Upper and lower extremities atraumatic, without tenderness, deformity, swelling or erythema. no pitting edema. Neuro: AOx3. Normal speech. Ambulating with steady gait. Course Course Course Narrative: 1923 -- CBC without leukocytosis or left shift. She has chronic anemia secondary to multiple myeloma. Her H&H is around baseline and above transfusion threshold. Chemistry showing chloride of 115. no jack. potassium 3.3. magnesium 1.2. repletion ordered. Chronic hypocalcemia with calcium of 8 > her lowest levels have been ~5. discussed w/ my attending, likely secondary to low mag. calcium repletion not indicated. trop wnl at 11.6. bnp elevated to 457. renal/ liver function at baseline. Chest x-ray showing mild interstitial prominence with scattered peribronchial thickening without focal consolidation. CTA chest pending to r/o PE. 0100 -- CTA chest w/o evidence of PE. BNP is elevated to 400s however there is no evidence of fluid overload on exam, she is not hypoxic, no effusion on scans. no evidence of pneumonia. there are findings of both acute, subacute and chronic rib fractures. there is ?acute fracture of left 4th rib on one slice of imaging only. I discussed findings with patient. she does not recall any recent fall/ chest trauma that would cause a rib fracture. She denies any abuse at home and feels safe. on re-examination, she is not tender to palpation along left anterior/lateral/ posterior chest. symmetric rise/fall of chest - no concern for flail chest. no concern for pneumo/ hemothorax. > at this time, patient has been in the ED for >6 hours without return of chest pain. she feels well, states she is hungry and would like to leave. I feel this is reasonable. she had a OFFICE EMPLOYEE at home who lives with her. I discussed the importance of following up with outpatient providers to have mag/calcium levels re-checked. I will also provide her w/ a referral to cardiology to establish care. Medications Administered Discontinued Medications Generic Name Dose Route Start Last Admin Trade Name Freq PRN Reason Stop Dose Admin Magnesium Sulfate 2 gm in 50 mls @ 25 mls/hr 02/12/25 18:19 02/12/25 20:37 Magnesium Sulfate/H2o IV 02/12/25 20:18 Infused ONCE ONE Infusion Iohexol 65 ml 02/12/25 21:35 02/12/25 21:36 Iohexol 350 Mg/Ml 100 Ml Infus..Btl IV 02/12/25 21:36 65 ml ONCE ONE Administration Medical Decision Making Medical Decision Making [facility] [place] Narrative: 79 year old cy[employer] speaking female with pmhx significant for multiple myeloma, hypothyroidism, hypophosphatemia presents to the ED today via EMS for evaluation of chest pain that initially began yesterday. vital signs are stable. not hypoxic. she is quite well appearing, sitting on the exam bed. History without high risk features (not substernal, no exertional component, not relieved with rest).? Exam without evidence of volume overload. EKG without signs of active ischemia. Differential diagnosis includes anemia, electrolyte abnormality, costochondritis, pleuritis, msk pain. Given the timing of pain to ED presentation, plan to delta troponin to evaluate for NSTEMI. PERC 1 - will obtain CTA chest to r/o PE. Presentation not consistent with pneumothorax, thoracic aortic dissection, cardiac effusion or tamponade. Plan for labs, troponin, EKG, CXR, CT chest, reassessment Differential Diagnosis Differential Diagnoses: The differential diagnosis associated with the presentation includes as above. Admission/Observation Consideration of admission/observation: Escalation of care including admission/observation considered admission considered. Lab Data MDM Lab Attestation statement: I reviewed the patient's lab results. as above. 02/12/25 17:28 02/12/25 17:28 Labs: Lab Results 02/12/25 02/12/25 Range/Units 17:28 20:56 WBC 8.6 (4.8-10.8) X10*3/uL RBC 3.49 L (4.20-5.50) X10*6/uL Hgb 9.7 L (12.0-16.0) g/dl Hct 29.3 L (37.0-47.0) % MCV 84.0 (80.0-98.0) fL MCH 27.8 (27.0-33.0) pg MCHC 33.1 (31.0-35.0) g/dl RDW 14.9 (11.0-16.0) % Plt Count 157 L D (160-400) X10*3/uL MPV 11.1 (9.4-12.3) fL Immature Gran % (Auto) 0.7 H (0.0-0.4) % Neut % (Auto) 56.3 (45-73) % Lymph % (Auto) 25.8 (20-40) % [place] % (Auto) 13.5 H (2-11) % Eos % (Auto) 3.4 (0-4) % Baso % (Auto) 0.3 (0-2) % Lymph # (Auto) 2.2 (1.2-4.9) X10*3/uL [place] # (Auto) 1.2 (0.1-1.2) X10*3/uL Eos # (Auto) 0.3 (0.0-0.4) X10*3/uL Baso # (Auto) 0.0 (0.0-0.2) X10*3/uL Abs Immat Gran (auto) 0.06 H (0.00-0.03) X10*3/uL Absolute Neuts (auto) 4.9 (2.0-8.3) x10*3/uL Absolute Nucleated RBC 0.000 (0.0-0.012) X10*3/uL Nucleated RBC % (auto) 0.0 (0.0-0.2) /100WBC Sodium 144 (135-145) mmol/L Potassium 3.3 (3.3-5.1) mmol/L Chloride 115 H (96-108) mmol/L Carbon Dioxide 24 (22-29) mmol/L Anion Gap 8 L (12-20) BUN 16 (9-16) mg/dL Creatinine 0.84 (0.5-1.4) mg/dL Estim Creat Clear Calc 46.0 Estimated GFR > 60 Random Glucose 95 (60-115) mg/dL Calcium 8.0 L D (8.4-10.2) mg/dL Magnesium 1.2 L* 1.9 (1.6-2.6) mg/dL Total Bilirubin 0.2 (0.0-1.0) mg/dL AST 19 (5-31) U/L ALT 13 (0-31) U/L Alkaline Phosphatase 93 (39-117) U/L Troponin I High Sens 11.6 D (<3.5-17.0) ng/L B-Natriuretic Peptide 457 H (<100) pg/mL Total Protein 6.8 (6.5-8.0) g/dL Albumin 3.2 L (3.5-5.0) g/dL Lipase 18 (8-78) U/L Influenza Type A (PCR) NEGATIVE (Negative) Influenza Type B (PCR) NEGATIVE (Negative) RSV RNA Qual (PCR) NEGATIVE (Negative) SARS-CoV-2 RNA (RT-PCR) NEGATIVE (Negative) Independent Interpretation I performed an independent interpretation of an: EKG, Plain X-Ray and CT Scan Interpretation: EKG showing sinus bradycardia at rate of 59 bpm CXR without effusion, consolidation or infiltrate CTA chest without embolism Radiology Impression Discussion of test interpretation with radiology: I have reviewed the radiologist's reading. Radiologist Impression: Procedure(s): XR chest 2V Accession Number(s): [id number] cc: Erika Morris MD; Renate Joseph~ CLINICAL HISTORY: left sided chest pain 2 views chest Comparison: CR/ND/SR - XR CHEST 1V - 02/25/24 17:24 EDT Findings: Cardiac and mediastinal contours are normal. Mild interstitial prominence with scattered peribronchial thickening. No focal consolidation. No effusion. No pneumothorax. No acute osseous finding. Chronic changes of the right acromion. Impression: Mild interstitial prominence with scattered peribronchial thickening. No focal consolidation. This document has been electronically signed by: Moo Alejandre MD on 02/12/2025 17:25:10 Procedure(s): CT angio chest PE protocol Accession Number(s): [id number] cc: Erika Morris MD; Renate Joseph~ Report Number: [id number]: Total DLP = 249.00 mGy-cm CLINICAL HISTORY: left sided chest pain, SOB CT angiography chest with contrast. 3D Postprocessing. Comparison: CT/ND/SR - CT ANGIO CHEST PE PROTOCOL - 11/27/23 15:42 EST Findings: No evidence of pulmonary embolism or heart strain by CT. Moderate diffuse atherosclerotic disease of the coronary arteries. No significant mediastinal adenopathy. No discrete thyroid lesion. Lungs exhibit interlobular septal thickening at the lung bases. Cluster of blebs noted within the right lower lobe. No effusion. No pneumothorax. Acute appearing left 4th rib fracture, axial 20. Unhealed right 9th and 10th rib fractures. Several old bilateral rib fractures are noted. Impression: No evidence of pulmonary embolism. Mild airway thickening and interstitial thickening. Acute, subacute and chronic rib fractures are noted as detailed. This document has been electronically signed by: Moo Alejandre MD on 02/12/2025 22:43:17 Independent Historian Clinical information obtained from an independent historian. History obtained from or confirmed by: EMS External Record Review External record reviewed: Inpatient record Prescription Management I considered prescription management with: Pain Medication Social Determinants Patient?s care significantly limited by Social Determinants of Health including: Other Social Determinant of Health Critical Care Time Critical Care Time Critical Care Time: No Discharge Plan Discharge Clinical Impression: Atypical chest pain, Hypocalcemia, Hypomagnesemia Fracture of rib Qualifiers: Encounter type: initial encounter Rib fracture type: single rib Fracture type: closed Laterality: left Qualified Code(s): S22.32XA - Fracture of one rib, left side, initial encounter for closed fracture Patient Disposition: Home, Self-Care Instructions: Rib Fracture (ED) Additional Instructions: You were evaluated in the Emergency Department today for chest pain. Your calcium and magnesium levels are low. You were given magnesium in ED. Follow up with PCP for repeat testing this week. Your evaluation has shown no signs of medical conditions requiring emergent intervention at this time, however I recommend that you follow up with your primary care provider or your air force pilot as soon as possible for further testing as an outpatient. The CT scan of your chest shows a possible new fracture to your left 4th rib. You may take tylenol and motrin at home as needed. Please follow up with your outpatient providers this week. I have provided you with a referral to a air force pilot. Please call them to establish care. They will not call you. Return to the Emergency Department if you experience worsening or uncontrolled chest pain, shortness of breath, light headedness, feeling faint, nausea, vomiting, or any other concerning symptoms. Prescriptions: No Action levothyroxine 75 mcg tablet 75 mcg PO DAILY lenalidomide [Revlimid] 10 mg Capsule 10 mg PO DAILY Qty: 14 0RF Rx Instructions: swallow whole with glass of water; do not open, crush, chew , break, or dissolve. [id number] lenalidomide [Revlimid] 10 mg Capsule 10 mg PO DAILY Qty: 14 0RF Rx Instructions: swallow whole with glass of water; do not open, crush, chew , break, or dissolve. [id number] mirtazapine 30 mg tablet 30 mg PO BEDTIME aspirin 81 mg tablet,chewable 81 mg PO DAILY fluoxetine 40 mg capsule 1 cap PO DAILY calcium carbonate [Oyster Shell Calcium 500] 500 mg calcium (1,250 mg) Tablet 500 mg PO TID 30 Days Qty: 90 0RF ondansetron 4 mg tablet,disintegrating 4 mg PO Q8H PRN (Reason: nausea and vomiting) Qty: 5 0RF trazodone 50 mg tablet 12.5 mg PO BID sodium bicarbonate 650 mg Tablet 650 mg PO TID Qty: 90 0RF magnesium oxide 250 mg magnesium tablet 250 mg PO BID Qty: 60 0RF lidocaine 5 % cream 1 appl topical BID calcitriol 0.25 mcg Capsule 0.25 mcg PO DAILY Qty: 7 0RF famotidine [Pepcid] 20 mg tablet 20 mg PO DAILY Qty: 30 0RF loperamide 2 mg Tablet 2 mg PO Q4H PRN (Reason: Loose Stool) Rx Instructions: administer after each loose stool until symptoms controlled; do not exceed 8 mg per 24 hrs Referrals: [facility] [Provider Group] Erika Morris MD [Primary Care Provider] - Interventions: ED Discharge Assessment Last Done: 02/13/25 02:05 Discharge Date/Time: 02/13/25 05:28 Print Language: Hungarian
[2025-02-12 17:10] VITALS: BP 132/76; PULSE 59; RESP 18; TEMP 36.4; O2SAT 98
[2025-02-12 17:37] LABS: Basophils Percent Auto 0.3 % (0-2); Eosinophils Absolute Auto 0.3 X10*3/uL (0.0-0.4); Eosinophils Percent Auto 3.4 % (0-4); Hematocrit 29.3 % (37.0-47.0); Hemoglobin 9.7 g/dl (12.0-16.0); Imm Gran Abs Auto 0.06 X10*3/uL (0.00-0.03); Imm Gran Pct Auto 0.7 % (0.0-0.4); Lymphocytes Absolute Auto 2.2 X10*3/uL (1.2-4.9); Lymphocytes Percent Auto 25.8 % (20-40); MANUAL DIFF FLAG NO; Mean Corpuscular HGB Conc 33.1 g/dl (31.0-35.0); Mean Corpuscular Hemoglobin 27.8 pg (27.0-33.0); Mean Platelet Volume 11.1 fL (9.4-12.3); Monocytes Absolute Auto 1.2 X10*3/uL (0.1-1.2); Monocytes Percent Auto 13.5 % (2-11); Neutrophils Absolute Auto 4.9 x10*3/uL (2.0-8.3); Neutrophils Percent Auto 56.3 % (45-73); Platelet Count 157 X10*3/uL (160-400); Red Blood Count 3.49 X10*6/uL (4.20-5.50); Red Cell Distribution Width 14.9 % (11.0-16.0); White Blood Count 8.6 X10*3/uL (4.8-10.8)
[2025-02-12 17:56] LABS: B Type Natriuretic Peptide 457 pg/mL (<100)
[2025-02-12 17:59] LABS: Troponin-I High Sensitivity 11.6 ng/L (<3.5-17.0)
[2025-02-12 18:13] LABS: Alanine Aminotransferase 13 U/L (0-31); Albumin Level 3.2 g/dL (3.5-5.0); Alkaline Phosphatase 93 U/L (39-117); Anion Gap 8 (12-20); Aspartate Amino Transferase 19 U/L (5-31); Bilirubin Total 0.2 mg/dL (0.0-1.0); Blood Urea Nitrogen 16 mg/dL (9-16); Carbon Dioxide 24 mmol/L (22-29); Chloride 115 mmol/L (96-108); Estimated Glomerular Filt Rate > 60; Glucose Random 95 mg/dL (60-115); Lipase 18 U/L (8-78); Magnesium 1.2 mg/dL (1.6-2.6); Potassium 3.3 mmol/L (3.3-5.1); Sodium 144 mmol/L (135-145); Total Protein 6.8 g/dL (6.5-8.0)
[2025-02-12 18:21] LABS: Influenza A PCR NEGATIVE (Negative); Influenza B PCR NEGATIVE (Negative); Resp Syncy Virus RNA Qual PCR NEGATIVE (Negative); SARS COV2 PCR INHOUSE NEGATIVE (Negative)
[2025-02-12] MEDS: Magnesium Sulfate/H2O 2 GM/50 ML PIGGYBACK IV (18:33)
[2025-02-12 18:41] VITALS: BP 125/56; PULSE 59; RESP 18; TEMP 36.4; O2SAT 98
[2025-02-12 20:05] VITALS: BP 123/52; PULSE 53; RESP 21; TEMP 36.7; O2SAT 98
[2025-02-12 21:13] LABS: Magnesium 1.9 mg/dL (1.6-2.6)
[2025-02-12] MEDS: iohexoL 350 MG/ML 100 ML INFUS..BTL 65 ML IV (21:36)
[2025-02-12 23:25] VITALS: BP 161/69; PULSE 54; RESP 20; TEMP 36.6; O2SAT 98
[2025-02-13 02:05] VITALS: BP 161/69; PULSE 54; RESP 20; TEMP 36.6; O2SAT 98
== END 2025-02-13 05:28 | disposition home or self-care (01) ==
PROVIDERS: Physician Assistant Medical; Emergency Provider Emergency Medicine; PCP Internal Medicine
DX: S22.32XA Fracture of one rib, left side, initial encounter for closed fracture (principal); E83.42 Hypomagnesemia; E83.51 Hypocalcemia; R07.89 Other chest pain; R11.0 Nausea; X58.XXXA Exposure to other specified factors, initial encounter; Y93.9 Activity, unspecified; Y92.9 Unspecified place or not applicable; Y99.8 Other external cause status; Z87.891 Personal history of nicotine dependence; Z79.899 Other long term (current) drug therapy; Z20.818 Contact with and (suspected) exposure to other bacterial communicable diseases; Z03.818 Encounter for observation for suspected exposure to other biological agents ruled out
CPT/HCPCS: 0241U; 36415; 71046; 71275; 80053; 83690; 83735; 83880; 84484; 85025; 93005; 96365; 96366; 99284; 99285; J3475; Q9967

== ENCOUNTER → 2025-02-12 16:19 | Outpatient (BNV) | payer MEDICARE, MEDICAID, SELFPAY | PROVIDERS: Emergency Provider Emergency Medicine; PCP Internal Medicine; Visit Provider Internal Medicine Cardiovascular Disease | DX: R07.9 Chest pain, unspecified (principal); R00.1 Bradycardia, unspecified; R94.31 Abnormal electrocardiogram [ECG] [EKG] | CPT/HCPCS: 93010 ==

== ENCOUNTER → 2025-02-12 16:38 | Outpatient (BNV) | payer MEDICARE, MEDICAID, SELFPAY | PROVIDERS: Emergency Provider Emergency Medicine; PCP Internal Medicine; Visit Provider Radiology Vascular & Interventional Radiology | DX: S22.32XA Fracture of one rib, left side, initial encounter for closed fracture (principal); R07.9 Chest pain, unspecified | CPT/HCPCS: 71046; 71275 ==

== ENCOUNTER 2025-03-10 15:25 | Emergency (ER) | payer MEDICARE, MEDICAID, SELFPAY ==
--- NOTE | 2025-03-10 | ECG_ITS ---
Test Reason : chest pain Blood Pressure : */* mmHG Vent. Rate : 66 BPM Atrial Rate : 66 BPM P-R Int : 114 ms QRS Dur : 88 ms QT Int : 474 ms P-R-T Axes : 25 17 -5 degrees QTcB Int : 496 ms Sinus rhythm with occasional Premature ventricular complexes Cannot rule out Inferior infarct , age undetermined ST & T wave abnormality, consider anterolateral ischemia Abnormal ECG When compared with ECG of 12-Feb-2025 16:19, Premature ventricular complexes are now Present Aberrant conduction is no longer Present Minimal criteria for Inferior infarct are now Present Referred By: Generic ED Physician Electronically Signed By: KRISTIN ANGEL MD
--- NOTE | ~2025-03-10 | XR_ITS ---
CLINICAL HISTORY: chest pain 1 view chest x-ray Comparison: CT/SR - CT ANGIO CHEST PE PROTOCOL - 02/12/25 21:11 EDT CR - XR CHEST 2V - 02/12/25 16:47 EDT Findings: No consolidation or effusion. Normal size heart. There is a subacute fracture of the left 4th rib without change. There are multiple chronic rib fractures. There is no acute fracture. IMPRESSION: 1. No acute findings. This document has been electronically signed by: Maria Esther Kaur MD on 03/10/2025 16:45:49
[2025-03-10 15:38] VITALS: BP 112/68; PULSE 78; RESP 16; TEMP 36.9; O2SAT 97; BMI 25.8
--- NOTE | 2025-03-10 15:45 | PC.NURSE ---
pt biba from home c/o generalized chest pressure radiating to LUE x 2 days. pt denies any palpitations/sob/nausea/vomiting. denies hx asthma/copd. EMS administered 324 ASA and 1 sublingual nitro w/ no good effect. pt still reporting 8/10 c/p despite previous administration. 20gIV placed in the left AC - patent/intact. pt currently on RA w/o difficulty. no sob/wob noted. respirations even/unlabored. plan of care ongoing. call means placed within reach.
--- NOTE | 2025-03-10 16:20 | PC.NURSE ---
labs obtained/sent to lab. ekg performed.
[2025-03-10 16:23] LABS: MANUAL DIFF FLAG NO
[2025-03-10 16:26] LABS: Basophils Absolute Auto 0.1 X10*3/uL (0.0-0.2); Basophils Percent Auto 0.5 % (0-2); Eosinophils Absolute Auto 0.4 X10*3/uL (0.0-0.4); Eosinophils Percent Auto 4.1 % (0-4); Hematocrit 33.3 % (37.0-47.0); Hemoglobin 10.8 g/dl (12.0-16.0); Imm Gran Abs Auto 0.06 X10*3/uL (0.00-0.03); Imm Gran Pct Auto 0.6 % (0.0-0.4); Lymphocytes Absolute Auto 3.2 X10*3/uL (1.2-4.9); Lymphocytes Percent Auto 32.5 % (20-40); Mean Corpuscular HGB Conc 32.4 g/dl (31.0-35.0); Mean Corpuscular Hemoglobin 27.7 pg (27.0-33.0); Mean Corpuscular Volume 85.4 fL (80.0-98.0); Mean Platelet Volume 11.6 fL (9.4-12.3); Monocytes Absolute Auto 0.7 X10*3/uL (0.1-1.2); Monocytes Percent Auto 7.4 % (2-11); Neutrophils Absolute Auto 5.4 x10*3/uL (2.0-8.3); Neutrophils Percent Auto 54.9 % (45-73); Platelet Count 194 X10*3/uL (160-400); Red Cell Distribution Width 14.6 % (11.0-16.0); White Blood Count 9.9 X10*3/uL (4.8-10.8)
--- NOTE | 2025-03-10 16:37 | ED_ITS ---
HPI - Chest Pain General Chief Complaint: Chest Pain Stated Complaint: chest pain radiating to jaw and L arm Time Seen by Provider: 03/10/25 16:37 Source: patient Limitations: language barrier History of Present Illness ED Provider: Maureen Moura PA-C HPI narrative: 79-year-old female with a history of multiple myeloma, hypothyroidism, hypophosphatemia, presents with chest pain. Patient states she was ?very angry at home?, she developed central chest pain. Pain worse with palpation of chest wall. Patient denies recent cough or cold symptoms, no new heavy lifting or other activity that could have precipitated her symptoms. Denies concurrent diaphoresis, nausea, vomiting. Related Data Home Medications ?Medication ?Instructions ?Recorded ?Confirmed levothyroxine 75 mcg tablet 75 mcg PO DAILY 10/27/20 01/12/25 aspirin 81 mg chewable tablet 81 mg PO DAILY 12/16/20 01/12/25 mirtazapine 30 mg tablet 30 mg PO BEDTIME 12/16/20 01/12/25 fluoxetine 40 mg capsule 1 cap PO DAILY 05/12/22 01/12/25 loperamide 2 mg tablet 2 mg PO Q4H PRN Loose Stool 02/25/24 01/12/25 trazodone 50 mg tablet 12.5 mg PO BID 09/18/24 01/12/25 lidocaine 5 % topical cream 1 appl topical BID 11/24/24 01/12/25 Previous Rx's ?Medication ?Instructions ?Recorded calcium carbonate (Oyster Shell 500 mg PO TID 30 days #90 tabs 05/13/22 Calcium 500) ondansetron 4 mg disintegrating 4 mg PO Q8H PRN nausea and 09/02/24 tablet vomiting #5 tabs lenalidomide 10 mg capsule 10 mg PO DAILY #14 caps 09/15/24 (Revlimid) magnesium oxide 250 mg PO BID #60 tabs 09/24/24 sodium bicarbonate 650 mg tablet 650 mg PO TID #90 tabs 09/24/24 calcitriol 0.25 mcg capsule 0.25 mcg PO DAILY #7 caps 11/27/24 famotidine 20 mg tablet (Pepcid) 20 mg PO DAILY #30 tabs 11/27/24 lenalidomide 10 mg capsule 10 mg PO DAILY #14 caps 11/30/24 (Revlimid) lenalidomide 10 mg capsule 10 mg PO DAILY #14 caps 02/15/25 (Revlimid) Allergies Allergy/AdvReac Type Severity Reaction Status Date / Time No Known Allergies Allergy Verified 03/10/25 15:41 [No Known Allergies*] Review of Systems 2 Review of Systems: Yes all other systems are reviewed and are negative Constitutional: Constitutional: Denies fatigue and Denies fever(s) Cardiovascular: Cardiovascular: Denies chest pain and Denies dyspnea Respiratory: Respiratory: Denies cough and Denies dyspnea Gastrointestinal: Gastrointestinal: Denies nausea and Denies vomiting Endocrine: Endocrine: Denies fatigue PMFSH Past Medical History Attestation statement: The following information was validated with the patient. Medical History Multiple myeloma Chronic diarrhea Tubulovillous adenoma Depression H/O gastroesophageal reflux (GERD) Hx of multiple myeloma Hypothyroidism Surgical History H/O tooth extraction History of bone marrow biopsy History of cholecystectomy Family History Family History Daughter Diabetes Thyroid cancer Social History Social History Household Members: Family Household Members Other:: adult son Housing: Apartment Are you a primary wound care rn to a significant other at home: No Do you presently have visiting nurse or other home services: Yes Alcohol intake: never Comment: 1:[address] until 23:00 due to staffing constraints Patient Tobacco Use Status: Former Tobacco user Tobacco use type: Cigarette Years Smoked: 20 Smoked in Last 30 Days: No e-Cigarette/Vaping Use: Never Used Second Hand Smoke Exposure: No Use of substances other than those prescribed or required for medical reasons: No Substance Use Type: Marijuana Advance Directives: Yes Advance Directives on File: Yes Advance Directives Date on File: 03/15/21 Do you have a plan to hurt others: No Plan service: No Current occupational status: unemployed Physical Exam 2 Vital Signs: Vital Signs: Last Vital Signs Temp 98.4 F 03/10/25 18:35 Pulse 55 03/10/25 18:35 Resp 18 03/10/25 18:35 BP 135/79 03/10/25 18:35 Pulse Ox 98 03/10/25 18:35 O2 Del Method Room Air 03/10/25 18:35 BMI result Body Mass Index 25.8 Const: Other: Alert well-appearing Orientation/consciousness: patient oriented x3 Chest: Other: Pain elicited with palpation of chest wall, no deformity Resp: Effort & Inspection: normal respiratory effort Cardio: Other: Normal peripheral perfusion Skin: Other: Warm dry no rash Neuro: General: patient oriented x3, gait normal, no focal motor deficits and CN's II-XI intact bilaterally Psych: Other: Cooperative Medications Administered Discontinued Medications Generic Name Dose Route Start Last Admin Trade Name Freq PRN Reason Stop Dose Admin Magnesium Sulfate 2 gm in 50 mls @ 25 mls/hr 03/10/25 16:48 03/10/25 19:32 Magnesium Sulfate/H2o IV 03/10/25 18:47 Infused ONCE ONE Infusion Medical Decision Making Medical Decision Making [facility] Narrative: 79-year-old female with a history of multiple myeloma, hypothyroidism, hypophosphatemia, presents with chest pain. Patient states she was ?very angry at home?, she developed central chest pain. Pain worse with palpation of chest wall. Patient denies recent cough or cold symptoms, no new heavy lifting or other activity that could have precipitated her symptoms. Denies concurrent diaphoresis, nausea, vomiting. Problem: Age History: Per patient I have considered the following differential diagnoses: ACS, chest wall strain, viral syndrome, pneumonia, costochondritis Plan: ACS was considered given the patient's age, screening labs including cardiac enzymes EKG and chest x-ray were obtained. The patient's discomfort is reproducible with palpation of the chest wall. The patient was not have any infectious signs symptoms that could have precipitated potential costochondritis. She has no mechanism of injury the could have cause chest wall strain. Labs: No leukocytosis, not anemic, magnesium subtly low at 1.5, no additional lab abnormalities, trop 4.3 and 5.6 EKG: Sinus rhythm rate of 66, PVCs noted, QTC 496, age indeterminate ST and T- wave abnormalities anterolateral leads, no new changes when compared to old study CXR: Findings: No consolidation or effusion. Normal size heart. There is a subacute fracture of the left 4th rib without change. There are multiple chronic rib fractures. There is no acute fracture. IMPRESSION: 1. No acute findings. Lab Data 03/10/25 16:18 03/10/25 16:18 Labs: Lab Results 03/10/25 03/10/25 Range/Units 16:18 18:36 WBC 9.9 (4.8-10.8) X10*3/uL RBC 3.90 L (4.20-5.50) X10*6/uL Hgb 10.8 L (12.0-16.0) g/dl Hct 33.3 L (37.0-47.0) % MCV 85.4 (80.0-98.0) fL MCH 27.7 (27.0-33.0) pg MCHC 32.4 (31.0-35.0) g/dl RDW 14.6 (11.0-16.0) % Plt Count 194 (160-400) X10*3/uL MPV 11.6 (9.4-12.3) fL Immature Gran % (Auto) 0.6 H (0.0-0.4) % Neut % (Auto) 54.9 (45-73) % Lymph % (Auto) 32.5 (20-40) % [place] % (Auto) 7.4 (2-11) % Eos % (Auto) 4.1 H (0-4) % Baso % (Auto) 0.5 (0-2) % Lymph # (Auto) 3.2 (1.2-4.9) X10*3/uL [place] # (Auto) 0.7 (0.1-1.2) X10*3/uL Eos # (Auto) 0.4 (0.0-0.4) X10*3/uL Baso # (Auto) 0.1 (0.0-0.2) X10*3/uL Abs Immat Gran (auto) 0.06 H (0.00-0.03) X10*3/uL Absolute Neuts (auto) 5.4 (2.0-8.3) x10*3/uL Absolute Nucleated RBC 0.000 (0.0-0.012) X10*3/uL Nucleated RBC % (auto) 0.0 (0.0-0.2) /100WBC Hold Blue Top SEE NOTE Sodium 141 (135-145) mmol/L Potassium 4.2 D (3.3-5.1) mmol/L Chloride 112 H (96-108) mmol/L Carbon Dioxide 22 (22-29) mmol/L Anion Gap 11 L (12-20) BUN 21 H (9-16) mg/dL Creatinine 1.11 (0.5-1.4) mg/dL Estim Creat Clear Calc 36.9 Estimated GFR 47 Random Glucose 84 (60-115) mg/dL Calcium 9.2 D (8.4-10.2) mg/dL Phosphorus 4.2 (2.7-4.5) mg/dL Magnesium 1.5 L (1.6-2.6) mg/dL Total Bilirubin 0.2 (0.0-1.0) mg/dL AST 18 (5-31) U/L ALT 10 (0-31) U/L Alkaline Phosphatase 102 (39-117) U/L Troponin I High Sens 4.3 D (<3.5-17.0) ng/L Troponin I Hi Sens Base 5.6 (<3.5-17.0) ng/L Total Protein 7.0 (6.5-8.0) g/dL Albumin 3.6 (3.5-5.0) g/dL Discharge Plan Discharge Clinical Impression: Anterior chest wall pain Patient Disposition: Home, Self-Care Instructions: Chest Wall Pain (ED) Additional Instructions: Your discomfort is consistent with chest wall pain. See home care instructions. All of your screening labs including 2 cardiac enzymes were normal. There were no concerning changes on your EKG in the chest x-ray is clear. Continue to follow up with your primary care provider. Prescriptions: No Action levothyroxine 75 mcg tablet 75 mcg PO DAILY lenalidomide [Revlimid] 10 mg Capsule 10 mg PO DAILY Qty: 14 0RF Rx Instructions: swallow whole with glass of water; do not open, crush, chew , break, or dissolve. [id number] lenalidomide [Revlimid] 10 mg Capsule 10 mg PO DAILY Qty: 14 0RF Rx Instructions: swallow whole with glass of water; do not open, crush, chew , break, or dissolve. [id number] lenalidomide [Revlimid] 10 mg Capsule 10 mg PO DAILY Qty: 14 0RF Rx Instructions: swallow whole with glass of water; do not open, crush, chew , break, or dissolve. [id number] mirtazapine 30 mg tablet 30 mg PO BEDTIME aspirin 81 mg tablet,chewable 81 mg PO DAILY fluoxetine 40 mg capsule 1 cap PO DAILY calcium carbonate [Oyster Shell Calcium 500] 500 mg calcium (1,250 mg) Tablet 500 mg PO TID 30 Days Qty: 90 0RF ondansetron 4 mg tablet,disintegrating 4 mg PO Q8H PRN (Reason: nausea and vomiting) Qty: 5 0RF trazodone 50 mg tablet 12.5 mg PO BID sodium bicarbonate 650 mg Tablet 650 mg PO TID Qty: 90 0RF magnesium oxide 250 mg magnesium tablet 250 mg PO BID Qty: 60 0RF lidocaine 5 % cream 1 appl topical BID calcitriol 0.25 mcg Capsule 0.25 mcg PO DAILY Qty: 7 0RF famotidine [Pepcid] 20 mg tablet 20 mg PO DAILY Qty: 30 0RF loperamide 2 mg Tablet 2 mg PO Q4H PRN (Reason: Loose Stool) Rx Instructions: administer after each loose stool until symptoms controlled; do not exceed 8 mg per 24 hrs Print Language: Yoruba
[2025-03-10 16:45] LABS: Alanine Aminotransferase 10 U/L (0-31); Albumin Level 3.6 g/dL (3.5-5.0); Alkaline Phosphatase 102 U/L (39-117); Anion Gap 11 (12-20); Aspartate Amino Transferase 18 U/L (5-31); Bilirubin Total 0.2 mg/dL (0.0-1.0); Blood Urea Nitrogen 21 mg/dL (9-16); Calcium 9.2 mg/dL (8.4-10.2); Carbon Dioxide 22 mmol/L (22-29); Chloride 112 mmol/L (96-108); Creatinine Clr Calc Pharmacy 36.9; Estimated Glomerular Filt Rate 47; Glucose Random 84 mg/dL (60-115); Magnesium 1.5 mg/dL (1.6-2.6); Potassium 4.2 mmol/L (3.3-5.1); Sodium 141 mmol/L (135-145)
[2025-03-10 16:52] LABS: Troponin-I High Sensitivity 4.3 ng/L (<3.5-17.0)
[2025-03-10 17:08] LABS: Phosphorus 4.2 mg/dL (2.7-4.5)
[2025-03-10] MEDS: Magnesium Sulfate/H2O 2 GM/50 ML PIGGYBACK IV (17:16)
--- NOTE | 2025-03-10 17:20 | PC.NURSE ---
pt medicated per provider order. pending CXR to be completed at this time. plan of care ongoing. call means placed within reach.
--- OUTSIDE RECORDS SUMMARY | 2025-03-10 18:18 | XMS_ITS | Clinical Summary ---
Author Organization [address] Address [address] [place] [address] Phone Care Team Providers Care General Assembler Installer Name Role Phone Yariel Walton MD Primary Care Provider + [phone] Surgical History Surgery Date Site/Laterality Comments CHOLECYSTECTOMY [...] Health Maintenance Due Date Last Done Comments Zoster Vaccines (1 of 2) 1964 RSV Immunization Adult Patients (1 - 1-dose 75+ series) 2019 Pneumococcal Vaccine: 50+ Years (3 of 3 - PCV) 01/07/2020 01/07/2019, 06/28/2014 COVID-19 Vaccine (3 - Pfizer risk series) 08/30/2021 08/02/2021, 05/23/2021 Cholesterol Screening (Lipid Panel) 09/29/2024 Depression Screening 09/29/2024 03/28/2023 Falls Risk Assessment 09/29/2024 Medicare Annual Wellness Visit 09/29/2024 Osteoporosis Screening (Bone Density Screening) 09/29/2024 Social Influencers of Health Screening 09/29/2024 Influenza Vaccine (Season Ended) 2025 01/17/2021, 09/03/2018, 09/03/2017 Hypertension/CHF/CAD Annual BMP Blood Test 10/13/2025 10/13/2024, 10/06/2024, 09/29/2024, Additional history exists DTaP,Tdap,and Td Vaccines (2 - Td or Tdap) 01/07/2029 01/07/2019 HIB Vaccines Aged Out No longer eligi ble based on patient's age to complete this topic HPV Vaccines Aged Out No longer eligi ble based on patient's age to complete this topic Hepatitis A Vaccines Aged Out No long er eligible [...] age to complete this topic Meningococcal B Vaccine Aged Out No l onger eligible based on patient's age to complete this topic RSV Immunization Patients Under 20 months Aged Out No longer eligible based on patient's age to complete this topic Varicella Vaccines Aged Out No longer eligible based on patient's age to complete this topic Procedures Procedure Name Priority Date/Time Associated Diagnosis Comments BASIC METABOLIC PANEL Routine 10/13/2024 5:15 AM EST Chronic kidney disease, unspecified Essential (primary) hypertension from Last 3 Months or Most Recently Relevant to Health Maintenance Results * (ABNORMAL) Basic metabolic panel (10/13/2024 5:15 AM EST) Sodium 138 133 - 145 mmol/L LAB CHEMISTRY METHOD 10/13/2024 8:52 AM EST [facility] Potassium 5.4 3.5 - 5.5 mmol/L LAB CHEMISTRY METHOD 10/13/2024 8:52 AM EST [facility] Chloride 109 96 - 110 mmol/L LAB CHEMISTRY METHOD 10/13/2024 8:52 AM EST [facility] CO2 25 21 - 32 mmol/L LAB CHEMISTRY METHOD 10/13/2024 8:52 AM EST [facility] Anion Gap 4 3 - 11 LAB CHEMISTRY METHOD 10/13/2024 8:52 AM [facility] Glucose 78 70 - 100 mg/dL LAB CHEMISTRY METHOD 10/13/2024 8:52 AM [facility] BUN 33(H) 5 - 25 mg/dL LAB CHEMISTRY METHOD 10/13/2024 8:52 AM [facility] Creatinine 1.52(H) 0.50 - 1.10 mg/dL LAB CHEMISTRY METHOD 10/13/2024 8:52 AM [facility] eGFR 35(L) >=60 mL/min/1. 73m2 LAB CHEMISTRY METHOD 10/13/2024 8:52 AM [facility] Comment:Calculation based on the??Chronic Kidney Disease Epidemiology Collaboration (CKD-EPI) equation refit??without adjustment for race. BUN/Creatinine Ratio 21.7 LAB CHEMISTRY METHOD 10/13/2024 8:52 AM [facility] Calcium 8.3(L) 8.5 - 10.5 mg/dL LAB CHEMISTRY METHOD 10/13/2024 8:52 AM [facility] Blood Venous blood specimen / Unknown Venipuncture / Unknown 10/13/2024 5:15 AM EST 10/13/2024 8:18 AM EST us Yariel Walton MD LAB BLOOD ORDERABLES Final R esult [facility] [address] [place] [address], from Last 3 Months or Most Recently Relevant to Health Maintenance Additional Health Concerns Infection Onset Date Last Indicated ESBL 10/03/2024 10/03/2024 Insurance MEDICARE Care Teams General Assembler Installer Relationship Specialty Start Date End Date Yariel Walton MD [address] [place] [address] PCP - General Family Medicine 10/12/24
--- OUTSIDE RECORDS SUMMARY | 2025-03-10 18:18 | XMS_ITS | Clinical Summary ---
Author Organization [employer] Address [address] [facility] [address] [place] [address] Care Team Providers Care Construction Crew Member Name Role Phone Erika Morris MD Primary Care Provider + Allergies No known active allergies Medications * This document contains information received from the source organization and may not represent a complete record from that organization. Acetaminophen Extra Strength 500 MG tabletIndicati ons:Tendinitis of left rotator cuff TAKE 1 TABLET [...] area 1x/d 30 each 09/08/20 24 Active sodium bicarbonate 650 MG tablet Take 1 tablet (650 mg) by mouth 3 times daily. 270 tablet 3 10/28/20 24 025 Active mirtazapine (Remeron) 30 MG tabletIndicati ons:Primary insomnia TAKE 1 TABLET BY MOUTH EVERY DAY AT BEDTIME 30 tablet 11 11/23/20 24 Active Simethicone (Gas-Ex) 125 MG tablet tabletIndicati ons:Gastroesop hageal reflux disease, unspecified whether esophagitis present Take 1 tablet (125 mg) by mouth if needed in the morning, at noon, in the evening, and at bedtime (1 tab po qid prn >2 loose stools, max 4d/stop for constipation) . 90 tablet 3 11/23/20 24 Active calcitriol (Rocaltrol) 0.25 MCG capsule Take 1 capsule by mouth Once per day. 11/27/19 25 Active famotidine (Pepcid) 20 MG tablet Take 1 tablet by mouth Once per day. 11/27/19 25 Active calcium carbonate EX (Tums E-X) 750 MG chewable tablet Chew 1 tablet (750 mg) before breakfast and before evening meal. 60 tablet 11 01/06/20 25 026 Active levothyroxine (Synthroid, Levoxyl) 100 MCG tablet TAKE 1 TABLET BY MOUTH EVERY MORNING BEFORE BREAKFAST 30 tablet 2 01/21/20 25 Active clotrimazole (Lotrimin) 1 % cream APPLY 1 GRAM TOPICALLY TO AFFECTED AREA(S) TWICE DAILY DIRECTED FOR 28 DAYS 30 g 2 02/24/20 25 Active Lidocaine, Anorectal, 5 % cream apply topically to the affected area(s) twice dailyapply topically to the affected area(s) twice daily 28 g 3 02/24/20 25 Active clotrimazole (Lotrimin) 1 % cream Apply topically 2 times daily for 28 days. 30 g 2 09/08/20 24 025 Discontinued loperamide (Anti-Diarrhea l) 2 MG tablet Take 2 tablets (4 mg) by mouth if needed in the morning, at noon, and at bedtime for diarrhea. 90 tablet 11/23/20 24 025 Lidocaine, Anorectal, 5 % cream apply topically to the affected area(s) twice daily 11/24/20 24 025 Discontinued(Re order (will not trigger notification to Pharmacy)) Active [...] electrolyte imbalance, corrected Pt has underlying microvascular OUTSIDE OPERATOR compromise. Mental status is significantly improved, will [...] family is working with insurance to increase TRAINING PROGRAM ASSISTANT hours. She will use transport wheelchair for longer transfers. Assessment & Plan (08/13/2024 3:13 PM EDT): Will send PT at home as gait has deteriorated since SNF discharge. Discussed with pt and TRAINING PROGRAM ASSISTANT/daughter regarding full precautions. 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 Will discuss with Dr. Ernst Simms at next weeks appointment. We discussed with Pt and family regarding preventing falls due to high risk of fractures. Will order home safety evaluation and prescribe DME as needed. Monitor electrolytes Assessment & Plan (03/28/2023 2:09 PM EDT): seems to be stable on denosumab maintenance ever three months [place] [facility] [place] continue close follow [...] prescription next week continue close fu with TISSUE COORDINATOR nurse pt unable to void today, reminded [...] Encounters Date Type Department Care Team Description 03/03/2025 Telephone [facility] [address] [place] [phone] Erika Morris MD ER Follow-up 02/23/2025 Refill [facility] [address] [place] [phone] Erika Morris MD 02/23/2025 Refill [facility] [address] [place] [phone] Roseanna Berger MD Muscle spasm of back 02/17/[address] [address] Erika Morris MD Durable Medical Equipment (DME Pull-ups) 02/12/2025 Orders Only [facility] External Provider, [facility] 01/20/[address] [address] Erika Morris MD 01/06/2025 11:30 AM EST Office Visit [address] [address] Erika Morris MD Urinary frequency (Primary Dx); Incontinence of feces with fecal urgency; Overweight; Dietary counseling; Exercise counseling; Encounter for screening for diabetes mellitus; Hypomagnesemia 01/06/[address] [address] Erika Morris MD CRITICAL RESULT 01/06/[address] [address] Erika Morris MD Durable Medical Equipment 01/06/2025 Travel 12/29/2024 Telephone [facility] [address] [place] [phone] Erika Morris MD 12/29/[address] [address] Erika Morris MD TRAINING PROGRAM ASSISTANT Services (I called the patient at [phone], regarding a request for an increase in TRAINING PROGRAM ASSISTANT hours. I reached a voicemail, and left a message asking her to contact me at ext [phone]. I then called Danna, her emergency contact at [phone]. I asked what agency the patient currently has for TRAINING PROGRAM ASSISTANT services, and Danna stated that she has [facility], on [facility] in [place]. She currently has 2 hours of TRAINING PROGRAM ASSISTANT services a week.) 12/24/[address] [address] Erika Morris MD 12/23/2024 1:00 PM EST Telemedicine [address] [address] Erika Morris MD Chronic diarrhea (Primary Dx); Incontinence of feces with fecal urgency; Hypocalcemia; Hypomagnesemia 12/23/2024 Travel 12/23/[address] [address] Erika Morris MD No Show 12/23/[address] [address] Erika Morris MD Durable Medical Equipment 12/21/[address] [address] Erika Morris MD Appointment Request 12/18/[address] [address] Makenna Carpio [place] Chart prep from Last 3 Months Immunizations Name Administration [...] Full Mouth 1945 Alcohol/Substance Use Screening 1956 Zoster Vaccines (1 of 2) 1963 RSV Patients and Patients Aged 60 years or older (1 - 1-dose 75+ series) 2019 Pneumococcal Vaccine: 50+ Years (3 of 3 - PCV) 01/07/2020 01/07/2019, 06/28/2014 COVID-19 Vaccine (3 - Pfizer risk series) 08/30/2021 08/02/2021, 05/23/2021 Depression Monitoring 09/28/2023 03/28/2023, 023 Depression Screening 03/28/2024 03/28/2023, 03/28/20 23 SDOH Screening 03/28/2024 03/28/2023 Tobacco Screening 01/06/2026 [...] Procedure Name Priority Date/Time Associated Diagnosis Comments CTA CHEST PE PROTOCAL Routine 02/12/2025 10:43 PM EDT MAGNESIUM Routine 02/12/2025 8:56 PM EDT XR CHEST 2 VIEWS Routine 02/12/2025 5:25 PM EDT HEMOGLOBIN A1C Routine 01/06/2025 12:12 PM EST Urinary frequency Encounter for screening for diabetes mellitus TSH W/REFLEX TO FT4 Routine 01/06/2025 1 2:12 PM EST Chronic diarrhea Hypocalcemia MAGNESIUM Routine 01/06/2025 12:12 PM EST Chronic diarrhea Hypomagnesemia BASIC METABOLIC PANEL Routine 01/06/2025 12:12 PM EST Chronic diarrhea Hypocalcemia LIPID PANEL WITH REFLEX TO DIRECT LDL Routine 04/16/2023 11:12 AM EDT Stage 3b chronic kidney disease (CMS/HCC) from Last 3 Months or Most Recently Relevant to Health Maintenance Results * CTA Chest PE Protocal (02/12/2025 10:43 PM EDT) Anatomical Region Laterality Modality Body, Chest Computed Tomogra phy 02/12/2025 10:4 3 PM EDT Narrative 02/12/2025 10:44 PM EDT ? [facility] ?[address] ?[place] [address] ? CT Scan Report ? Signed ? Patient: Moe,Altagracia ?MR#: [id number] ? : 1945 ?Acct:[id number] ? Age/Sex: 79 / F ?ADM Date: 03/21/25 ? Loc: HO.ED ? Attending Dr: ? Ordering Physician: Renate Joseph ?? Date of Service: 02/12/25 ?? Procedure(s): CT angio chest PE protocol ?? Accession Number(s): [id number] ? cc: Erika Morris MD; Renate Joseph ? Report Number: ?? [id number]: Total DLP = ??249.00 mGy-cm ? CLINICAL HISTORY: left sided chest pain, SOB ? CT angiography chest with contrast. 3D Postprocessing. ? Comparison: ?? CT/MS/SR - CT ANGIO CHEST PE PROTOCOL - 11/27/23 15:42 EST ? Findings: ?? No evidence of pulmonary embolism or heart strain by CT. ?? Moderate diffuse atherosclerotic disease of the coronary arteries. ?? No significant mediastinal adenopathy. ?? No discrete thyroid lesion. ?? Lungs exhibit interlobular septal thickening at the lung bases. Cluster of ?? blebs noted within the right lower lobe. ?? No effusion. No pneumothorax. ?? Acute appearing left 4th rib fracture, axial 20. ?? Unhealed right 9th and 10th rib fractures. ?? Several old bilateral rib fractures are noted. ? Impression: ? No evidence of pulmonary embolism. ?? Mild airway thickening and interstitial thickening. ?? Acute, subacute and chronic rib fractures are noted as detailed. ? This document has been electronically signed by: Moo Alejandre MD on ?? 02/12/2025 22:43:17 ? Dictated By: ?Moo Alejandre MD ? Signed By: ?<Electronically signed by Moo Alejandre MD in OV> ? 02/12/254 ? DD/ 42 ? TD/TT: 02/12/252242 ? Radio Host: ? Procedure Note Catherine Lopez - 02/12/[address] [place] [address] [address] Scan Report Signed Patient: Ajit Moe#: [id number] : 4Acct:[id number] Age/Sex: 79 / FADM Date: 02/12/25 Loc: HO.ED Attending Dr: Ordering Physician: Renate Joseph Date of Service: 02/12/25 Procedure(s): CT angio chest PE protocol Accession Number(s): [id number] cc: Erika Morris MD; Renate Joseph Report Number: [id number]: Total DLP = 249.00 mGy-cm CLINICAL HISTORY: left sided chest pain, SOB CT angiography chest with contrast. 3D Postprocessing. Comparison: CT/MS/SR - CT ANGIO CHEST PE PROTOCOL - 11/27/23 15:42 EST Findings: No evidence of pulmonary embolism or heart strain by CT. Moderate diffuse atherosclerotic disease of the coronary arteries. No significant mediastinal adenopathy. No discrete thyroid lesion. Lungs exhibit interlobular septal thickening at the lung bases. Cluster of blebs noted within the right lower lobe. No effusion. No pneumothorax. Acute appearing left 4th rib fracture, axial 20. Unhealed right 9th and 10th rib fractures. Several old bilateral rib fractures are noted. Impression: No evidence of pulmonary embolism. Mild airway thickening and interstitial thickening. Acute, subacute and chronic rib fractures are noted as detailed. This document has been electronically signed by: Moo Alejandre MD on 02/12/2025 22:43:17 Dictated By: Moo Alejandre MD Signed By: <Electronically signed by Moo Alejandre MD in OV> 02/12/252243 DD/ 42 TD/TT: 02/12/252242 Radio Host: [facility] External Provider IMG CT PROCEDURES Edited Result - Final * Magnesium (02/12/2025 8:56 PM EDT) Only the most recent of2 resultswithin the time period is included. Magnesium 1.9 1.6 - 2.6 mg/dL [facility] 02/12/2025 8:56 PM EDT 02/12/2025 8:59 PM EDT Generic External Data Provider LAB BLOOD ORDERAB LES Final Result [facility] [address] [place] [phone] * XR Chest 2 Views (02/12/2025 5:25 PM EDT) Anatomical Region Laterality Modality Chest Radiographic Sidra ging 02/12/2025 5:25 PM EDT Narrative 02/12/2025 5:26 PM EDT ? [facility] [place] [facility] ?[address] ?[place] [address] ?XRay Report ? Signed ? Patient: Moe,Altagracia ?MR#: [id number] ? : 1945 ?Acct:[id number] ? Age/Sex: 79 / F ?ADM Date: 02/12/25 ? Loc: HO.ED ? Attending Dr: ? Ordering Physician: Renate Joseph ?? Date of Service: 02/12/25 ?? Procedure(s): XR chest 2V ?? Accession Number(s): [id number] ? cc: Erika Morris MD; Renate Joseph ? CLINICAL HISTORY: left sided chest pain ? 2 views chest ? Comparison: CR/MS/SR - XR CHEST 1V - 02/25/24 17:24 EDT ? Findings: ?? Cardiac and mediastinal contours are normal. ?? Mild interstitial prominence with scattered peribronchial thickening. ?? No focal consolidation. No effusion. No pneumothorax. ?? No acute osseous finding. Chronic changes of the right acromion. ? Impression: ?? Mild interstitial prominence with scattered peribronchial thickening. No ?? focal consolidation. ? This document has been electronically signed by: Moo Alejandre MD on ?? 02/12/2025 17:25:10 ? Dictated By: ?Moo Alejandre MD ? Signed By: ?<Electronically signed by Moo Alejandre MD in OV> ? 02/12/25 1726 ? DD/ 1725 ? TD/TT: 02/12/25 172 ? Radio Host: ? Procedure Note Donmariaater, Image - 02/12/[address] [address] XRay Report Signed Patient: Ajit Moe#: [id number] : 4Acct:[id number] Age/Sex: 79 / FADM Date: 02/12/25 Loc: HO.ED Attending Dr: Ordering Physician: Renate Joseph Date of Service: 02/12/25 Procedure(s): XR chest 2V Accession Number(s): [id number] cc: Erika Morris MD; Renate Joseph CLINICAL HISTORY: left sided chest pain 2 views chest Comparison: CR/MS/SR - XR CHEST 1V - 02/25/24 17:24 EDT Findings: Cardiac and mediastinal contours are normal. Mild interstitial prominence with scattered peribronchial thickening. No focal consolidation. No effusion. No pneumothorax. No acute osseous finding. Chronic changes of the right acromion. Impression: Mild interstitial prominence with scattered peribronchial thickening. No focal consolidation. This document has been electronically signed by: Moo Alejandre MD on 02/12/2025 17:25:10 Dictated By: Moo Alejandre MD Signed By: <Electronically signed by Moo Alejandre MD in OV> 02/12/25 172 DD/ 24 TD/TT: 02/12/251724 Radio Host: [facility] External Provider IMG XR PROCEDURES Final Result * TSH with Reflex to Free T4 (01/06/2025 12:12 PM EST) TSH reflex Free T4 0.42 0.32 - 4.0 uIU/mL [facility] Blood 01/06/2025 12:1 2 PM EST 01/06/2025 1:42 PM EST Erika Morris MD LAB BLOOD ORDERABLES Fin al Result [facility] [address] [place] [address] [phone] * Hemoglobin A1c (01/06/2025 12:12 PM EST) Hemoglobin A1c 5.1 <6.0 % [facility] Comment:Hemoglobin A1C Refer ence Range Adults: 4.8 - 6.0 % Non diabetic: < 6.0 % Goal: < 7.0 %Additional Action Suggested: > 8.0 %Note: Hemoglobin A1c results are invalid for patients with abnormal amounts of HbF. Blood transfusions may impact the HbA1c concentration in the patient sample. Estimated Average Glucose 100 mg/dL [facility] Comment:eAG = Estimated ave rage glucose which is %A1C expressed asaverage glucose, using the formula of the H0F-UmuiyrwVpdjwuz Glucose study (ADAG), Diabetes Care, Vol.31,#8,Jun. 2007 Blood Venous blood specimen / Unknown 01/06/2025 12:12 PM EST 01/06/2025 1:42 PM EST Erika Morris MD LAB BLOOD ORDERABLES Fin al Result Performing Organization Address [facility] Co de Phone Number [facility] [address] [place] [phone] * (ABNORMAL) Basic Metabolic Panel (01/06/2025 12:12 PM EST) Sodium 144 135 - 145 mmol/L [facility] Potassium 4.2 3.3 - 5.1 mmol/L [facility] Chloride 112(H) 96 - 108 mmol/L [facility] Carbon Dioxide 25 22 - 29 mmol/L [facility] Anion Gap 11(L) 12 - 20 [facility] Urea Nitrogen (BUN) 17(H) 9 - 16 mg/dL [facility] Creatinine, Serum 0.86 0.5 - 1.4 mg/dL [facility] Estimated Glomerular Filt Rate >60 [facility] Comment:Chronic Kidney Disea se: Estimated GFR < 60 mL/min/1.77c3Dtqlbo Kidney Disease: Estimated GFR < 15 mL/min/1.73m2 Glucose 102 60 - 115 mg/dL [facility] Calcium 8.0(L) 8.4 - 10.2 mg/dL [facility] Blood Venous blood specimen / Unknown 01/06/2025 12:12 PM EST 01/06/2025 1:42 PM EST Erika Morris MD LAB BLOOD ORDERABLES Fin al Result Performing Organization Address [facility] Co de Phone Number [facility] [address] [place] [phone] * (ABNORMAL) Lipid Panel with Reflex to Direct LDL (04/16/2023 11:12 AM EDT) Cholesterol, Total 187 <200 mg/dL [facility] HDL Cholesterol 66 > OR = 50 mg/dL [facility] Triglycerides 98 <150 mg/dL [facility] LDL Cholesterol 102(H) mg/dL (calc) [facility] Comment: Reference range: <100 Desirable range <100 mg/dL for primary prevention; ?? <70 mg/dL for patients with CHD or diabetic patients with > or = 2 CHD risk factors. LDL-C is now calculated using the Moises calculation, which is a validated novel method providing better accuracy than the Friedewald equation in the estimation of LDL-C. John SS et al. DOMINIQUE. 2013;310(19): 8551-0705 (http://education.HazelMail/faq/VPV248) Chol/HDLC Ratio 2.8 <5.0 (calc) [facility] Non-HDL Cholesterol 121 <130 mg/dL (calc) [facility] Comment: For patients with diabetes plus 1 major ASCVD risk factor, treating to a non-HDL-C goal of <100 mg/dL (LDL-C of <70 mg/dL) is considered a therapeutic option. 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
--- OUTSIDE RECORDS SUMMARY | 2025-03-10 18:18 | XMS_ITS | Encounter Summary ---
Author Organization [employer] Address [address] [facility] [address] [place] [address] Care Team Providers Care Organic Chemistry Teacher Name Role Phone Erika Morris MD Primary Care Provider + Reason for Visit * Reason Comments Med Refill Encounter Details Date Type Department Care Team (Late st Contact Info) Description 07/17/2023 Refill [facility] [address] [place], [place] [phone] Ariadne Panchal MD [address] [place] [address] Primary insomnia Social History Tobacco Use Types [...] documented as of this encounter Care Teams Organic Chemistry Teacher Relationship Specialty Start Date End Date Erika Morris MD [address] [place] [phone] PCP - General Family Medicine 08/07/18 [facility] 07/16/24 11/08/24 Héctor [facility] 10/19/24 documented as of this encounter
--- OUTSIDE RECORDS SUMMARY | 2025-03-10 18:18 | XMS_ITS | Encounter Summary ---
Author Organization [employer] Address [address] [place] [address] Care Team Providers Care Odd Piece Checker Name Role Phone Yariel Walton MD Primary Care Provider [phone] Encounter Details Date Type Department Care Team (Late st Contact Info) Description 10/04/2024 Lab Requisition [facility] [address] [place] [address] Yariel Walton MD [address] [place] [address] Urinary tract infection, site not [...] reflex microscopic (10/03/2024 5:26 PM EST) Specific [place] Urine 1.016 1.003 - 1.030 LAB URINALYSIS - AUTOMATED METHOD 10/04/2024 1:53 PM [facility] pH, Urine 5.5 5.0 - 8.0 pH LAB URINALYSIS - AUTOMATED METHOD 10/04/2024 1:53 PM [facility] Leukocytes, Urine Large(A) Negative LAB URINALYSIS - AUTOMATED METHOD 10/04/2024 1:53 PM [facility] Nitrite, Urine Negative Negative LAB URINALYSIS - AUTOMATED METHOD 10/04/2024 1:53 PM [facility] Protein, Urine 100(A) <=Trace mg/dL LAB URINALYSIS - AUTOMATED METHOD 10/04/2024 1:53 PM [facility] Glucose, Urine Negative Negative mg/dL LAB URINALYSIS - AUTOMATED METHOD 10/04/2024 1:53 PM [facility] Ketones, Urine Negative Negative mg/dL LAB URINALYSIS - AUTOMATED METHOD 10/04/2024 1:53 PM [facility] Urobilinogen , Urine 0.2 0.2 - 1.0 mg/dL LAB URINALYSIS - AUTOMATED METHOD 10/04/2024 1:53 PM [facility] Bilirubin, Urine Negative Negative LAB URINALYSIS - AUTOMATED METHOD 10/04/2024 1:53 PM [facility] Blood, Urine Large(A) Negative LAB URINALYSIS - AUTOMATED METHOD 10/04/2024 1:53 PM [facility] RBC, Urine 278(H) 0 - 4 /HPF LAB URINALYSIS - AUTOMATED METHOD 10/04/2024 1:53 PM [facility] WBC, Urine 3,664.2(H) 0 - 4 /HPF LAB URINALYSIS - AUTOMATED METHOD 10/04/2024 1:53 PM [facility] Squamous Epithelial, Urine >100(H) 0 - 60 /LPF LAB URINALYSIS - AUTOMATED METHOD 10/04/2024 1:53 PM EST [facility] Bacteria, Urine Many(A) Negative /HPF LAB URINALYSIS - AUTOMATED METHOD 10/04/2024 1:53 PM [facility] Hyaline Casts, Urine 4.6(H) 0 - 3 /LPF LAB URINALYSIS - AUTOMATED METHOD 10/04/2024 1:53 PM EST [facility] Urine Urine specimen obtained by clean catch procedure / Unknown 10/03/2024 5:26 PM EST 10/04/2024 12:35 PM EST us Yariel Walton MD LAB URINE ORDERABLES Final R esult [facility] [address] [place] [address], [place] [phone] * (ABNORMAL) Culture urine (10/03/2024 5:26 PM EST) Culture, Urine >100,000 CFU/mL Escherichia coli ESBL(A) ADRIÁN 10/07/2024 8:02 AM EST [facility] Comment: THIS ORGANISM IS POSITIVE FOR EXTENDED SPECTRUM BETA-LACTAMASE (ESBL). ??EXTENDED SPECTRUM BETA-LACTAMASE ??PRODUCING ORGANISMS DEMONSTRATE DECREASED ACTIVITY WITH PENICILLILNS, CEPHALOSPORINS AND AZTREONAM. Edited result: Previously reported as Escherichia coli on 10/06/2024 at 1131 EST. Urine Urine specimen obtained by clean catch procedure / Unknown 10/03/2024 5:26 PM EST 10/04/2024 12:35 PM EST Narrative [facility] - 10/07/2024 8:02 AM EST [...] MICROBIOLOGY - GENERAL O RDERABLES Final Result [facility] ([facility]) [facility] [address] [place] [address], documented in this encounter Visit Diagnoses Diagnosis Urinary tract infection, site not specified documented in this encounter Additional Health Concerns Infection Onset Date Last Indicated Resolved Time ESBL 10/03/2024 10/03/2024 documented as of this encounter Care Teams Odd Piece Checker Relationship Specialty Start Date End Date Yariel Walton MD [address] [place] [address] PCP - General Family Medicine 10/12/24 documented as of this encounter
--- OUTSIDE RECORDS SUMMARY | 2025-03-10 18:18 | XMS_ITS | Encounter Summary ---
Author Organization [employer] Address [address] [place] [address] Care Team Providers Care Coater Operator Insulation Board Name Role Phone Yariel Walton MD Primary Care Provider Encounter Details Date Type Department Care Team (Late st Contact Info) Description 09/29/2024 Lab Requisition [facility] - Main Lab 299 [facility] [place] [address] Yariel Walton MD [address] [place] [address] Chronic kidney disease, unspecified; Essential [...] phlebotomy fee (09/29/2024 8:48 AM EST) Pathologist [facility] HALF-WAY TRAVEL PHLEBOTOMY FEE Completed 09/29/2024 11:[address] [facility] Blood Venous blood specimen / Unknown Venipuncture / Unknown 09/29/2024 8:48 AM EST 09/29/2024 10:37 AM EST Yariel Walton MD LAB BLOOD ORDERABLES Final R esult Performing Organization Address City/[facility]/ZIP Co de Phone Number [facility] [address] [place] [address], [place] [phone] * (ABNORMAL) Magnesium (09/29/2024 8:48 AM EST) [facility] Magnesium 1.6(L) 1.9 - 2.6 mg/dL LAB CHEMISTRY METHOD 09/29/2024 12:[address] [facility] Blood Venous blood specimen / Unknown Venipuncture / Unknown 09/29/2024 8:48 AM EST 09/29/2024 10:37 AM EST Yariel Walton MD LAB BLOOD ORDERABLES Final R esult [facility] [address] [place] [address], [place] [phone] * (ABNORMAL) Basic metabolic panel (09/29/2024 8:48 AM EST) [facility] Sodium 137 133 - 145 mmol/L LAB CHEMISTRY METHOD 09/29/2024 12:[address] [facility] Potassium 4.8 3.5 - 5.5 mmol/L LAB CHEMISTRY METHOD 09/29/2024 12:[address] [facility] Chloride 108 96 - 110 mmol/L LAB CHEMISTRY METHOD 09/29/2024 12:[address] [facility] CO2 21 21 - 32 mmol/L LAB CHEMISTRY METHOD 09/29/2024 12:[address] [facility] Anion Gap 8 3 - 11 LAB CHEMISTRY METHOD 09/29/2024 12:[address] [facility] Glucose 94 70 - 100 mg/dL LAB CHEMISTRY METHOD 09/29/2024 12:[address] [facility] BUN 40(H) 5 - 25 mg/dL LAB CHEMISTRY METHOD 09/29/2024 12:[address] [facility] Creatinine 1.29(H) 0.50 - 1.10 mg/dL LAB CHEMISTRY METHOD 09/29/2024 12:[address] [facility] eGFR 42(L) >=60 mL/min/1. 73m2 LAB CHEMISTRY METHOD 09/29/2024 12:[address] [facility] Comment:Calculation based on the??Chronic Kidney Disease Epidemiology Collaboration (CKD-EPI) equation refit??without adjustment for race. BUN/Creatinine Ratio 31.0 LAB CHEMISTRY METHOD 09/29/2024 12:[address] [facility] Calcium 9.1 8.5 - 10.5 mg/dL LAB CHEMISTRY METHOD 09/29/2024 12:[address] [facility] Blood Venous blood specimen / Unknown Venipuncture / Unknown 09/29/2024 8:48 AM EST 09/29/2024 10:37 AM EST Yariel Walton MD LAB BLOOD ORDERABLES Final R esult [facility] [address] [place] [address], * (ABNORMAL) Complete blood count (09/29/2024 8:48 AM EST) WBC 11.7(H) 4.8 - 10.8 K/mcL LAB HEMETOLOGY METHOD 09/29/2024 11:[address] [facility] RBC 3.60(L) 3.80 - 4.80 M/mcL LAB HEMETOLOGY METHOD 09/29/2024 11:[address] [facility] Hemoglobin 9.7(L) 11.5 - 16.0 g/dL LAB HEMETOLOGY METHOD 09/29/2024 11:[address] [facility] Hematocrit 31.5(L) 35.0 - 47.0 % LAB HEMETOLOGY METHOD 09/29/2024 11:[address] [facility] MCV 86.5 79.0 - 98.0 FL LAB HEMETOLOGY METHOD 09/29/2024 11:[address] [facility] MCH 26.6(L) 27.0 - 32.0 pcg LAB HEMETOLOGY METHOD 09/29/2024 11:[address] [facility] MCHC 30.8(L) 32.0 - 37.0 g/dL LAB HEMETOLOGY METHOD 09/29/2024 11:[address] [facility] RDW 15.2(H) 11.0 - 15.0 % LAB HEMETOLOGY METHOD 09/29/2024 11:[address] [facility] Platelets 270 130 - 400 K/mcL LAB HEMETOLOGY METHOD 09/29/2024 11:[address] [facility] MPV 12.8(H) 7.0 - 11.0 FL LAB HEMETOLOGY METHOD 09/29/2024 11:[address] [facility] NRBC 0.0 <1.0 % LAB HEMETOLOGY METHOD 09/29/2024 11:[address] [facility] NRBC Absolute 0.00 <0.10 K/mcL LAB HEMETOLOGY METHOD 09/29/2024 11:[address] [facility] Blood Venous blood specimen / Unknown Venipuncture / Unknown 09/29/2024 8:48 AM EST 09/29/2024 10:37 AM EST us Yariel Walton MD LAB BLOOD ORDERABLES Final R esult [facility] [address] [place] [address], documented in this encounter Visit Diagnoses Diagnosis Chronic kidney disease, unspecified Essential (primary) hypertension Unspecified essential hypertension documented in this encounter Additional Health Concerns Infection Onset Date Last Indicated Resolved Time ESBL 10/03/2024 10/03/2024 documented as of this encounter Care Teams Coater Operator Insulation Board Relationship Specialty Start Date End Date Yariel Walton MD [address] [place] [address] PCP - General Family Medicine 10/12/24 documented as of this encounter
--- OUTSIDE RECORDS SUMMARY | 2025-03-10 18:18 | XMS_ITS | Encounter Summary ---
Author Organization [employer] Address 75 [facility] [address]t [place] [address] Care Team Providers Care Power Supply Engineer Name Role Phone Erika Morris MD Primary Care Provider + Reason for Visit * Reason Comments Med Refill Encounter Details Date Type Department Care Team (Late st Contact Info) Description 07/18/2023 Refill [facility] MEDICINE [address] [place], [place] [phone] Ariadne Panchal MD [address] [place], [place] [phone] Primary insomnia Social History Tobacco Use Types [...] as of this encounter Care Teams Power Supply Engineer Relationship Specialty Start Date End Date Erika Morris MD [address] [place] [address] PCP - General Family Medicine 08/07/18 [employer] 07/16/24 11/08/24 Héctor [facility] 10/19/24 documented as of this encounter
--- OUTSIDE RECORDS SUMMARY | 2025-03-10 18:18 | XMS_ITS | Encounter Summary ---
Author Organization [employer] Address 75 [facility] 7t [place] [address] Care Team Providers Care Product Safety Expert Name Role Phone Erika Morris MD Primary Care Provider + Reason for Visit * Reason Comments Med Refill Encounter Details Date Type Department Care Team (Late st Contact Info) Description 10/10/2023 Refill [facility] [address] [place], [place] [phone] Erika Morris MD [address] [place] [address] Neoplasm related pain (acute) (chronic) Social History [...] documented as of this encounter Care Teams Product Safety Expert Relationship Specialty Start Date End Date Erika Morris MD [address] [place] [address] PCP - General Family Medicine 08/07/18 [employer] 07/16/24 11/08/24 Héctor YUAN 10/19/24 documented as of this encounter
--- OUTSIDE RECORDS SUMMARY | 2025-03-10 18:18 | XMS_ITS | Encounter Summary ---
Author Organization [employer] Address 75 [facility] [address] [place] [address] Care Team Providers Care Software Project Manager Name Role Phone Erika Morris MD Primary Care Provider + Reason for Visit * Reason Comments Med Refill Encounter Details Date Type Department Care Team (Late st Contact Info) Description 05/27/2023 Refill [facility] MEDICINE [address] [place], [place] [phone] Mariia Harper DO [address] [place], [place] [phone] Neoplasm related pain (acute) (chronic) Social History [...] documented as of this encounter Care Teams Software Project Manager Relationship Specialty Start Date End Date Erika Morris MD [address] [place] [address] PCP - General Family Medicine 08/07/18 [employer] 07/16/24 11/08/24 Héctor [facility] 10/19/24 documented as of this encounter
--- OUTSIDE RECORDS SUMMARY | 2025-03-10 18:18 | XMS_ITS | Encounter Summary ---
Author Organization [employer] Address 75 [facility] 7[address] [place] [address] Care Team Providers Care Rubber Boots And Shoes Repairer Name Role Phone Erika Morris MD Primary Care Provider + Encounter Details Date Type Department Care Team ([facility] st Contact Info) Description 01/30/2024 Telephone [facility] MEDICINE [address] [place], [place] [phone] Erika Morris MD [address] [place], [place] [phone] Social History Tobacco Use Types Packs/Day Years [...] documented as of this encounter Care Teams Rubber Boots And Shoes Repairer Relationship Specialty Start Date End Date Erika Morris MD [address] [place] [address] PCP - General Family Medicine 08/07/18 [employer] 07/16/24 11/08/24 Héctor YUAN 10/19/24 documented as of this encounter
--- OUTSIDE RECORDS SUMMARY | 2025-03-10 18:18 | XMS_ITS | Encounter Summary ---
Author Organization [employer] Address 75 [facility] 7t [place] [address] Care Team Providers Care Surgical Technician Name Role Phone Erika Morris MD Primary Care Provider + Reason for Visit * Reason Onset Date Comments contact oncologist 01/30/2023 Encounter Details Date Type Department Care Team ([facility] st Contact Info) Description 01/30/2023 Telephone [facility] ADULT DENTAL [address] [place], [place] [phone] Nawaf Cueto, DMD [address] [place] [address] contact oncologist Social History Tobacco Use Types [...] number to reach Dr. Sahni On[facility] at [facility] is [phone]. * Telephone Encounter - Elina Mills - [...] with oncology that she was unableto miss. DR documented in this encounter Plan of Treatment Not on file documented as of this encounter Visit Diagnoses Not on filedocumented in this encounter Care Teams Surgical Technician Relationship Specialty Start Date End Date Erika Morris MD [address] [place] [address] PCP - General Family Medicine 08/07/18 [employer] 07/16/24 11/08/24 Héctor [facility] 10/19/24 documented as of this encounter
--- OUTSIDE RECORDS SUMMARY | 2025-03-10 18:18 | XMS_ITS | Encounter Summary ---
Author Organization [employer] Address 75 [facility] 7t [place] [address] Care Team Providers Care Quality Lab Technician Name Role Phone Erika Morris MD Primary Care Provider + Reason for Visit * Reason Comments Med Refill Encounter Details Date Type Department Care Team (Late st Contact Info) Description 12/16/2023 Refill [facility] [address] [place], [place] [phone] Erika Morris MD [address] [place] [address] Neoplasm related pain (acute) (chronic) Social History [...] documented as of this encounter Care Teams Quality Lab Technician Relationship Specialty Start Date End Date Erika Morris MD [address] [place] [address] PCP - General Family Medicine 08/07/18 [employer] 07/16/24 11/08/24 Héctor YUAN 10/19/24 documented as of this encounter
--- OUTSIDE RECORDS SUMMARY | 2025-03-10 18:18 | XMS_ITS | Encounter Summary ---
Author Organization [facility] Address [address] [place] [address] Care Team Providers Care Visual C Developer Name Role Phone Yariel Walton MD Primary Care Provider Encounter Details Date Type Department Care Team (Late st Contact Info) Description 10/19/2024 Lab Requisition [facility] - Main Lab 299 [facility] [place] [address] Yariel Walton MD [address] [place] [address] Chronic kidney disease, unspecified; Essential (primary) hypertension [...] documented as of this encounter Care Teams Visual C Developer Relationship Specialty Start Date End Date Yariel Walton MD [address] [place] [address] PCP - General Family Medicine 10/12/24 documented as of this encounter
--- OUTSIDE RECORDS SUMMARY | 2025-03-10 18:18 | XMS_ITS | Encounter Summary ---
Author Organization [employer] Address [address] [place] [address] Care Team Providers Care Weather Forecaster Name Role Phone Yariel Walton MD Primary Care Provider Encounter Details Date Type Department Care Team (Late st Contact Info) Description 10/06/2024 Lab Requisition [facility] - Main Lab 299 [facility] [place] [address] Yariel Walton MD [address] [place] [address] Chronic kidney disease, unspecified; Essential [...] mg/dL LAB CHEMISTRY METHOD 10/06/2024 4:35 PM [facility] Blood Venous blood specimen / Unknown 10/06/2024 5:54 AM EST 10/06/2024 12:07 PM EST us Yariel Walton MD LAB BLOOD ORDERABLES Final R esult [facility] [address] [place] [address], * (ABNORMAL) Basic metabolic panel (10/06/2024 5:54 AM EST) Sodium 135 133 - 145 mmol/L LAB CHEMISTRY METHOD 10/06/2024 4:35 PM [facility] Potassium 5.7(H) 3.5 - 5.5 mmol/L LAB CHEMISTRY METHOD 10/06/2024 4:35 PM [facility] Chloride 106 96 - 110 mmol/L LAB CHEMISTRY METHOD 10/06/2024 4:35 PM [facility] CO2 20(L) 21 - 32 mmol/L LAB CHEMISTRY METHOD 10/06/2024 4:35 PM [facility] Anion Gap 9 3 - 11 LAB CHEMISTRY METHOD 10/06/2024 4:35 PM [facility] Glucose 70 70 - 100 mg/dL LAB CHEMISTRY METHOD 10/06/2024 4:35 PM [facility] BUN 41(H) 5 - 25 mg/dL LAB CHEMISTRY METHOD 10/06/2024 4:35 PM [facility] Creatinine 1.69(H) 0.50 - 1.10 mg/dL LAB CHEMISTRY METHOD 10/06/2024 4:35 PM [facility] eGFR 31(L) >=60 mL/min/1. 73m2 LAB CHEMISTRY METHOD 10/06/2024 4:35 PM [facility] Comment:Calculation based on the??Chronic Kidney Disease Epidemiology Collaboration (CKD-EPI) equation refit??without adjustment for race. BUN/Creatinine Ratio 24.3 LAB CHEMISTRY METHOD 10/06/2024 4:35 PM EST [facility] Calcium 8.8 8.5 - 10.5 mg/dL LAB CHEMISTRY METHOD 10/06/2024 4:35 PM [facility] Blood Venous blood specimen / Unknown 10/06/2024 5:54 AM EST 10/06/2024 12:07 PM EST us Yariel Walton MD LAB BLOOD ORDERABLES Final R esult [facility] [address] [place] [address], [place] [phone] * (ABNORMAL) Complete blood count (10/06/2024 5:54 AM EST) WBC 9.0 4.8 - 10.8 K/mcL LAB HEMETOLOGY METHOD 10/06/2024 10:44 AM [facility] RBC 3.50(L) 3.80 - 4.80 M/mcL LAB HEMETOLOGY METHOD 10/06/2024 10:44 AM [facility] Hemoglobin 9.2(L) 11.5 - 16.0 g/dL LAB HEMETOLOGY METHOD 10/06/2024 10:44 AM [facility] Hematocrit 29.8(L) 35.0 - 47.0 % LAB HEMETOLOGY METHOD 10/06/2024 10:44 AM [facility] MCV 86.4 79.0 - 98.0 FL LAB HEMETOLOGY METHOD 10/06/2024 10:44 AM [facility] MCH 26.7(L) 27.0 - 32.0 pcg LAB HEMETOLOGY METHOD 10/06/2024 10:44 AM EST [facility] MCHC 30.9(L) 32.0 - 37.0 g/dL LAB HEMETOLOGY METHOD 10/06/2024 10:44 AM EST [facility] RDW 14.6 11.0 - 15.0 % LAB HEMETOLOGY METHOD 10/06/2024 10:44 AM [facility] Platelets 370 130 - 400 K/mcL LAB HEMETOLOGY METHOD 10/06/2024 10:44 AM [facility] MPV 12.2(H) 7.0 - 11.0 FL LAB HEMETOLOGY METHOD 10/06/2024 10:44 AM [facility] NRBC 0.0 <1.0 % LAB HEMETOLOGY METHOD 10/06/2024 10:44 AM [facility] NRBC Absolute 0.00 <0.10 K/mcL LAB HEMETOLOGY METHOD 10/06/2024 10:44 AM [facility] Blood Venous blood specimen / Unknown Venipuncture / Unknown 10/06/2024 5:54 AM EST 10/06/2024 10:14 AM EST Yariel Walton MD LAB BLOOD ORDERABLES Final R esult [facility] [address] [place] [address], documented in this encounter Visit Diagnoses Diagnosis Chronic kidney disease, unspecified Essential (primary) hypertension Unspecified essential hypertension documented in this encounter Additional Health Concerns Infection Onset Date Last Indicated Resolved Time ESBL 10/03/2024 10/03/2024 documented as of this encounter Care Teams Weather Forecaster Relationship Specialty Start Date End Date Yariel Walton MD [address] [place] [address] PCP - General Family Medicine 10/12/24 documented as of this encounter
--- OUTSIDE RECORDS SUMMARY | 2025-03-10 18:18 | XMS_ITS | Encounter Summary ---
Author Organization [employer] Address 75 [facility] 7[address] [place] [address] Care Team Providers Care Risk Management Manager Name Role Phone Erika Morris MD Primary Care Provider + Reason for Visit * Reason Onset Date Comments referralto [facility] 06/25/2023 referral appt [facility] 06/25/2023 Encounter Details Date Type Department Care Team (Late st Contact Info) Description 06/25/2023 Telephone [facility] ADULT DENTAL [address] [place] [address] Washington-HernandezTenzinJuly, DDS [address] [place], [place] [phone] [facility]to [facility]; referral appt [facility] Social History [...] AM EDT Tahir called in stating that [facility] is able to get patient in for August for a consulation and then go from there. Bere and rasta would like to know if you are able to script more antibiotics to hold her over until she gets seen. At the same time tthey are looking to see if there is anything you can do to contact [facility] and see if they can get [...] pick new referral to be seen in [facility] * Telephone Encounter - Elina Mills - 06/25/2023 1:27 PM EDT [facility] do not feel comfortable treating patient with her condition. They are recommending patient get a new referral to [facility] in [place]. documented in this encounter Plan of Treatment Not on file documented as of this encounter Visit Diagnoses Not on filedocumented in this encounter Additional Health Concerns Assessment Noted Time PHQ-9 Depression Total Score: 14 023 10:41 AM EDT documented as of this encounter Care Teams Risk Management Manager Relationship Specialty Start Date End Date Erika Morris MD [address] [place] [address] PCP - General Family Medicine 08/07/18 [employer] 07/16/24 11/08/24 Héctor YUAN 10/19/24 documented as of this encounter
--- OUTSIDE RECORDS SUMMARY | 2025-03-10 18:18 | XMS_ITS | Encounter Summary ---
Author Organization [employer] Address 75 [facility] [address] [place] [address] Care Team Providers Care Supervisor Gluing Name Role Phone Erika Morris MD Primary Care Provider + Encounter Details Date Type Department Care Team ([facility] st Contact Info) Description 11/13/2024 Telephone [facility] MEDICINE [address] [place], [place] [phone] Erika Morris MD [address] [place], [place] [phone] Social History Tobacco Use Types Packs/Day Years [...] documented as of this encounter Care Teams Supervisor Gluing Relationship Specialty Start Date End Date Erika Morris MD [address] [place] [address] PCP - General Family Medicine 08/07/18 Héctor YUAN 10/19/24 documented as of this encounter
--- OUTSIDE RECORDS SUMMARY | 2025-03-10 18:18 | XMS_ITS | Encounter Summary ---
Author Organization [employer] Address [address] [facility] 7t [place] [address] Care Team Providers Care Laser Cutter Name Role Phone Erika Morris MD Primary Care Provider + Reason for Visit * Reason Comments Med Refill Encounter Details Date Type Department Care Team (Late st Contact Info) Description 12/16/2023 Refill [facility] [address] [place], [place] [phone] Erika Morris MD [address] [place] [address] Neoplasm related pain (acute) (chronic) Social History [...] documented as of this encounter Care Teams Laser Cutter Relationship Specialty Start Date End Date Erika Morris MD [address] [place] [address] PCP - General Family Medicine 08/07/18 [employer] 07/16/24 11/08/24 Héctor YUAN 10/19/24 documented as of this encounter
--- OUTSIDE RECORDS SUMMARY | 2025-03-10 18:18 | XMS_ITS | Encounter Summary ---
Author Organization [employer] Address [address] [facility] [address] [place] [address] Care Team Providers Care Drawer In Jacquard Loom Name Role Phone Erika Morris MD Primary Care Provider + Reason for Visit * Reason Onset Date Comments Referral 06/04/2023 Encounter Details Date Type Department Care Team (Late st Contact Info) Description 06/04/2023 Telephone [facility] ADULT DENTAL [address] [place] [address] July Acuña, DDS [address] [place] [address] Referral Social History Tobacco Use Types Packs/Day [...] Miscellaneous Notes * Telephone Encounter - July Washington-Hernandez, DDS - 06/11/2023 8:33 AM EDT Yes it is. To please ask for me once she gets to the office. Thanks, Dr. Hernandez * Telephone Encounter - Elina Mills - 06/11/2023 8:10 AM EDT Daughter called in to confirm if referral for Oral Surgeon is ready for her to come vegetable picker * Telephone Encounter - Elina Mills - [...] know the recommendations made at the hospital. [phone] Thanks, Dr. Hernandez * Telephone Encounter - [...] request with provider. She is willing to vegetable picker in office. DR Goodmanally signed by Elina Mills at 06/04/2023 8:35 AM EDT documented in this encounter Plan of Treatment Not on file documented as of this encounter Visit Diagnoses Not on filedocumented in this encounter Additional Health Concerns Assessment Noted Time PHQ-9 Depression Total Score: 14 023 10:41 AM EDT documented as of this encounter Care Teams Drawer In Jacquard Loom Relationship Specialty Start Date End Date Erika Morris MD [address] [place] [address] PCP - General Family Medicine 08/07/18 [employer] 07/16/24 11/08/24 Héctor YUAN 10/19/24 documented as of this encounter
--- OUTSIDE RECORDS SUMMARY | 2025-03-10 18:18 | XMS_ITS | Clinical Summary ---
Author Organization [facility] Address [address] [place] [address] [place] [address] Phone Care Team Providers Care Laborer Orchard Name Role Phone Erika Morris MD Primary Care Provider + [phone] Allergies No known active allergies Medications aspirin [...] Chronic kidney disease, stage 2 (mild) Immunizations Immunization Administration Dates Next Due Influenza (IM) Preservative [...] 04/01/2020 12:00 PM EDT Plan of Treatment Upcoming Encounters Date Type Department Care Team (Late st Contact Info) Description 03/22/2025 4:00 PM EDT Office Visit [facility] [address] [place] [address] Nawaf Guidry MD [address] [facility] [address] [place] [address] Health Maintenance Due Date Last Done Comments Pneumococcal Vaccine: 50+ Years (3 of 3 - PCV) 01/07/2020 01/07/2019, 06/28/2014 Pneumococcal Vaccine: Peds (0 to 5 Years) and At-Risk Patients (6 to 49 Years) Discontinued 01/07/2019, 06/28/2014 Influenza Vaccine Completed 09/19/2024, 09/03/2018, 09/03/2017 Hepatitis B Vaccine Aged Out No longe r eligible based on patient's age to complete this topic Insurance Medicaid [place] Medicare Medicare Medicaid [place] Care Teams Laborer Orchard Relationship Specialty Start Date End Date Erika Morris MD [address] [place] [address] PCP - General Internal Medicine 11/08/21
--- OUTSIDE RECORDS SUMMARY | 2025-03-10 18:18 | XMS_ITS | Encounter Summary ---
Author Organization [employer] Address [address] [facility] [address] [place] [address] Care Team Providers Care Quarter Lining Smoother Name Role Phone Erika Morris MD Primary Care Provider + Encounter Details Date Type Department Care Team ([facility] st Contact Info) Description 08/17/2024 Telephone [facility] MEDICINE [address] [place], [place] [phone] Erika Morris MD 230 [place], [place] [phone] Social History Tobacco Use Types Packs/Day Years [...] for increase in homemaking hours. I contacted [facility] to discuss with early breastfeeding care specialist Lien Johnson. I left voicemail message with info and request for return call. documented in this encounter Plan of Treatment Not on file documented as of this encounter Visit Diagnoses Not on filedocumented in this encounter Additional Health Concerns Assessment Noted Time PHQ-9 Depression Total Score: 14 023 10:41 AM EDT documented as of this encounter Care Teams Quarter Lining Smoother Relationship Specialty Start Date End Date Erika Morris MD [address] [place] [address] PCP - General Family Medicine 08/07/18 [employer] 07/16/24 11/08/24 [facility] [facility] 10/19/24 documented as of this encounter
--- OUTSIDE RECORDS SUMMARY | 2025-03-10 18:18 | XMS_ITS | Encounter Summary ---
Author Organization [employer] Address [address] [facility] [address] [place] [address] Care Team Providers Care Financial Services Officer Name Role Phone Erika Morris MD Primary Care Provider + Reason for Visit * Reason Onset Date Comments status 12/07/2022 Encounter Details Date Type Department Care Team ([facility] st Contact Info) Description 12/07/[address] [facility] MEDICINE 230 [place] [address] Erika Morris MD 230 [place] [address] status Social History Tobacco Use Types Packs/Day [...] on filedocumented in this encounter Care Teams Financial Services Officer Relationship Specialty Start Date End Date Erika Morris MD [address] [place] [address] PCP - General Family Medicine 08/07/18 [employer] 07/16/24 11/08/24 [employer] 10/19/24 documented as of this encounter
--- OUTSIDE RECORDS SUMMARY | 2025-03-10 18:18 | XMS_ITS | Encounter Summary ---
Author Organization [employer] Address [address] [facility] 7t [place] [address] Care Team Providers Care Cutch Cleaner Name Role Phone Erika Morris MD Primary Care Provider + Reason for Visit * Reason Onset Date Comments Hospital Follow-up 11/30/2024 Encounter Details Date Type Department Care Team ([facility] st Contact Info) Description 11/30/2024 Telephone [facility] MED[facility]INE 230 [place], [place] [phone] Erika Morris MD 230 [place], [place] [phone] Hospital Follow-up Social History Tobacco Use Types [...] PM EST Tc from [facility] requesting a HDF appt. Hospital: [facility] Date of admission: 11/23/24 Discharge date: 11/27/24 Diagnosed: Calcium and magnesium *Send message to [facility] Clinical Care Coordinators documented in this encounter Plan of Treatment Not on file documented as of this encounter Visit Diagnoses Not on filedocumented in this encounter Additional Health Concerns Assessment Noted Time PHQ-9 Depression Total Score: 14 023 10:41 AM EDT documented as of this encounter Care Teams Cutch Cleaner Relationship Specialty Start Date End Date Erika Morris MD [address] [place] [id number] PCP - General Family Medicine 08/07/18 [employer] 10/19/24 documented as of this encounter
--- OUTSIDE RECORDS SUMMARY | 2025-03-10 18:18 | XMS_ITS | Encounter Summary ---
Author Organization [employer] Address [address] [facility] [address] [place] [address] Care Team Providers Care Microbiology Lab Assistant Name Role Phone Erika Morris MD Primary Care Provider + Reason for Visit * Reason Comments Med Refill Encounter Details Date Type Department Care Team (Late st Contact Info) Description 05/21/2023 Refill [facility] MEDICINE 230 [place], [place] [phone] Mariia Harper DO 230 [place], [place] [phone] Neoplasm related pain (acute) (chronic) Social History [...] documented as of this encounter Care Teams Microbiology Lab Assistant Relationship Specialty Start Date End Date Erika Morris MD [address] [place] [phone] PCP - General Family Medicine 08/07/18 [facility] [facility] 07/16/24 11/08/24 [facility] 10/19/24 documented as of this encounter
--- OUTSIDE RECORDS SUMMARY | 2025-03-10 18:18 | XMS_ITS | Encounter Summary ---
Author Organization [employer] Address [address] [facility] [address] [place] [address] Care Team Providers Care Shank Inspector Name Role Phone Erika Morris MD Primary Care Provider + Reason for Visit * Reason Comments Med Refill Encounter Details Date Type Department Care Team (Late st Contact Info) Description 07/01/2024 Refill [facility] MEDICINE 230 [place], [place] [phone] Erika Morris MD 230 [place], [place] [phone] Social History Tobacco Use Types Packs/Day Years [...] documented as of this encounter Care Teams Shank Inspector Relationship Specialty Start Date End Date Erika Morris MD [address] [place] [address] PCP - General Family Medicine 08/07/18 [employer] 07/16/24 11/08/24 [employer] [facility] 10/19/24 documented as of this encounter
--- OUTSIDE RECORDS SUMMARY | 2025-03-10 18:18 | XMS_ITS | Encounter Summary ---
Author Organization [employer] Address [address] [facility] [address] [place] [address] Care Team Providers Care Obstetrics Scrub Nurse Name Role Phone Erika Morris MD Primary Care Provider + Reason for Visit * Reason Onset Date Comments medication 07/12/2023 Encounter Details Date Type Department Care Team (Late st Contact Info) Description 07/12/[address] [facility] ADULT DENTAL [address] [place] [address] July Acuña, DDS [address] [place] [address] medication Social History Tobacco Use Types Packs/Day [...] * Telephone Encounter - Elina Mills - 07/16/2023 8:59 AM EDT Granddaughter called in today to talk to you. She is trying to get a script for antibiotics. She has her consultation visit in [place] in August and has run out of [...] and so following up. Grand daughter number [phone] * Telephone Encounter - Elina Mills - 07/12/2023 3:19 PM EDT Patient was referred to Hospital in [place] for treatment. She has an appt in [...] documented as of this encounter Care Teams Obstetrics Scrub Nurse Relationship Specialty Start Date End Date Erika Morris MD [address] [place] [id number] PCP - General Family Medicine 08/07/18 [employer] 07/16/24 11/08/24 [employer] [facility] 10/19/24 documented as of this encounter
--- OUTSIDE RECORDS SUMMARY | 2025-03-10 18:18 | XMS_ITS | Encounter Summary ---
Author Organization [employer] Address 75 [facility] [address] [place] [address] Care Team Providers Care Edge Blacker Name Role Phone Erika Morris MD Primary Care Provider + Encounter Details Date Type Department Care Team ([facility] st Contact Info) Description 12/26/2022 Orders Only [facility] MED & PEDS [address] [place] [address] Mariia Lemons LPN Social History Tobacco Use [...] on filedocumented in this encounter Care Teams Edge Blacker Relationship Specialty Start Date End Date Erika Morris MD 230 [place] [address] PCP - General Family Medicine 08/07/18 [employer] 07/16/24 11/08/24 [facility] 10/19/24 documented as of this encounter
--- OUTSIDE RECORDS SUMMARY | 2025-03-10 18:18 | XMS_ITS | Encounter Summary ---
Author Organization [employer] Address 75 [facility] 7[address] [place] [address] Care Team Providers Care Emergency Room Orderly Name Role Phone Erika Morris MD Primary Care Provider + Encounter Details Date Type Department Care Team (Late st Contact Info) Description 07/16/[address] [facility] ADULT DENTAL [address] [place] [address] July Acuña, DDS [address] [place] [address] Social History Tobacco Use Types Packs/Day Years [...] documented as of this encounter Care Teams Emergency Room Orderly Relationship Specialty Start Date End Date Erika Morris MD [address] [place] [phone] PCP - General Family Medicine 08/07/18 [employer] 07/16/24 11/08/24 [employer] 10/19/24 documented as of this encounter
--- OUTSIDE RECORDS SUMMARY | 2025-03-10 18:18 | XMS_ITS | Encounter Summary ---
Author Organization [employer] Address [address] [facility] [address] [place] [address] Care Team Providers Care X Ray Physician Name Role Phone Erika Morris MD Primary Care Provider + Reason for Visit * Reason Onset Date Comments Prior Authoroization for consultation 08/30/2023 Encounter Details Date Type Department Care Team (Late st Contact Info) Description 08/30/2023 Telephone [facility] ADULT DENTAL [address] [place] [address] July Acuña, DDS [address] [place] [address] Prior Authoroization for consultation Social History Tobacco [...] to message below. Please contact Whitney at [phone] * Telephone Encounter - July Acuña DDS - 08/30/2023 11:19 AM EDT Spoke with pt granddaughter who is in charge of Altagracia, and she explained to me that she received a call from [facility] and they need to speak to the Medical department, not Dental. Advised her to please callthem back for specific instructions and then contact the PCP. * Telephone Encounter - Elina Mills - 08/30/2023 8:51 AM EDT Altagracia Kelley daughter called. She has her consultation in [facility] in [place] . The hospital contacted office in [place], unsure why, asking for a Prior Authorization for her visit over there. Basically they are looking for an ICD10 K08.9 as the reasoning and need for appt. I tried to get as much details as possible from daughter but this is all that she was able to give me. She provided me with 2 phones numbers to reach out for clarification: [phone] and [phone] She also provided a procedure code 66813 unsure if that is for the appt on the day she is going to [facility]. She is not sure what any [...] documented as of this encounter Care Teams X Ray Physician Relationship Specialty Start Date End Date Erika Morris MD [address] [place] [address] PCP - General Family Medicine 08/07/18 [employer] 07/16/24 11/08/24 [facility] 10/19/24 documented as of this encounter
--- OUTSIDE RECORDS SUMMARY | 2025-03-10 18:18 | XMS_ITS | Encounter Summary ---
Author Organization [employer] Address [address] [place] [address] Care Team Providers Care Loom Blower Name Role Phone Yariel Walton MD Primary Care Provider [phone] Encounter Details Date Type Department Care Team (Late st Contact Info) Description 10/12/2024 Lab Requisition [facility] - Main Lab [address] [facility] [place] [address] Yariel Walton MD [address] [place] [address] Chronic kidney disease, unspecified; Essential [...] mg/dL LAB CHEMISTRY METHOD 10/13/2024 8:52 AM [facility] Blood Venous blood specimen / Unknown Venipuncture / Unknown 10/13/2024 5:15 AM EST 10/13/2024 8:18 AM EST us Yariel Walton MD LAB BLOOD ORDERABLES Final R esult [facility] [address] [place] [address], * (ABNORMAL) Basic metabolic panel (10/13/2024 5:15 AM EST) Sodium 138 133 - 145 mmol/L LAB CHEMISTRY METHOD 10/13/2024 8:52 AM [facility] Potassium 5.4 3.5 - 5.5 mmol/L LAB CHEMISTRY METHOD 10/13/2024 8:52 AM [facility] Chloride 109 96 - 110 mmol/L LAB CHEMISTRY METHOD 10/13/2024 8:52 AM [facility] CO2 25 21 - 32 mmol/L LAB CHEMISTRY METHOD 10/13/2024 8:52 AM [facility] Anion Gap 4 3 - 11 LAB CHEMISTRY METHOD 10/13/2024 8:52 AM [facility] Glucose 78 70 - 100 mg/dL LAB CHEMISTRY METHOD 10/13/2024 8:52 AM [facility] BUN 33(H) 5 - 25 mg/dL LAB CHEMISTRY METHOD 10/13/2024 8:52 AM [facility] Creatinine 1.52(H) 0.50 - 1.10 mg/dL LAB CHEMISTRY METHOD 10/13/2024 8:52 AM [facility] eGFR 35(L) >=60 mL/min/1. 73m2 LAB CHEMISTRY METHOD 10/13/2024 8:52 AM [facility] Comment:Calculation based on the??Chronic Kidney Disease Epidemiology Collaboration (CKD-EPI) equation refit??without adjustment for race. BUN/Creatinine Ratio 21.7 LAB CHEMISTRY METHOD 10/13/2024 8:52 AM [facility] Calcium 8.3(L) 8.5 - 10.5 mg/dL LAB CHEMISTRY METHOD 10/13/2024 8:52 AM [facility] Blood Venous blood specimen / Unknown Venipuncture / Unknown 10/13/2024 5:15 AM EST 10/13/2024 8:18 AM EST us Yariel Walton MD LAB BLOOD ORDERABLES Final R esult [facility] [address] [place] [address], [place] [phone] * (ABNORMAL) Complete blood count (10/13/2024 5:15 AM EST) WBC 6.8 4.8 - 10.8 K/mcL LAB HEMETOLOGY METHOD 10/13/2024 8:28 AM [facility] RBC 3.10(L) 3.80 - 4.80 M/mcL LAB HEMETOLOGY METHOD 10/13/2024 8:28 AM [facility] Hemoglobin 8.2(L) 11.5 - 16.0 g/dL LAB HEMETOLOGY METHOD 10/13/2024 8:28 AM [facility] Hematocrit 27.7(L) 35.0 - 47.0 % LAB HEMETOLOGY METHOD 10/13/2024 8:28 AM [facility] MCV 89.4 79.0 - 98.0 FL LAB HEMETOLOGY METHOD 10/13/2024 8:28 AM [facility] MCH 26.5(L) 27.0 - 32.0 pcg LAB HEMETOLOGY METHOD 10/13/2024 8:28 AM EST [facility] MCHC 29.6(L) 32.0 - 37.0 g/dL LAB HEMETOLOGY METHOD 10/13/2024 8:28 AM EST [facility] RDW 14.9 11.0 - 15.0 % LAB HEMETOLOGY METHOD 10/13/2024 8:28 AM [facility] Platelets 290 130 - 400 K/mcL LAB HEMETOLOGY METHOD 10/13/2024 8:28 AM [facility] MPV 11.7(H) 7.0 - 11.0 FL LAB HEMETOLOGY METHOD 10/13/2024 8:28 AM [facility] NRBC 0.0 <1.0 % LAB HEMETOLOGY METHOD 10/13/2024 8:28 AM [facility] NRBC Absolute 0.00 <0.10 K/mcL LAB HEMETOLOGY METHOD 10/13/2024 8:28 AM [facility] Blood Venous blood specimen / Unknown Venipuncture / Unknown 10/13/2024 5:15 AM EST 10/13/2024 8:18 AM EST Yariel Walton MD LAB BLOOD ORDERABLES Final R esult [facility] [address] [place] [address], documented in this encounter Visit Diagnoses Diagnosis Chronic kidney disease, unspecified Essential (primary) hypertension Unspecified essential hypertension documented in this encounter Additional Health Concerns Infection Onset Date Last Indicated Resolved Time ESBL 10/03/2024 10/03/2024 documented as of this encounter Care Teams Loom Blower Relationship Specialty Start Date End Date Yariel Walton MD [address] [place] [address] PCP - General Family Medicine 10/12/24 documented as of this encounter
[2025-03-10 18:35] VITALS: BP 135/79; PULSE 55; RESP 18; TEMP 36.9; O2SAT 98
[2025-03-10 19:09] LABS: Troponin-I High Sens Reflx 2hr 5.6 ng/L (<3.5-17.0)
[2025-03-10 20:39] LABS: Reflex Trop? Y
[2025-03-10 20:45] VITALS: BP 120/91; PULSE 55; RESP 12; TEMP 36.7; O2SAT 98
[2025-03-10 21:12] VITALS: BP 120/91; PULSE 55; RESP 12; TEMP 36.7; O2SAT 98
== END 2025-03-10 21:18 | disposition home or self-care (01) ==
PROVIDERS: Physician Assistant Medical; Emergency Provider Emergency Medicine
DX: R07.89 Other chest pain (principal); F12.90 Cannabis use, unspecified, uncomplicated; Z87.891 Personal history of nicotine dependence; Z79.82 Long term (current) use of aspirin; Z79.899 Other long term (current) drug therapy
CPT/HCPCS: 36415; 71045; 80053; 83735; 84100; 84484; 85025; 93005; 96365; 96366; 99284; 99285; J3475

== ENCOUNTER → 2025-03-10 16:09 | Outpatient (BNV) | payer MEDICARE, MEDICAID, SELFPAY | PROVIDERS: Emergency Provider Emergency Medicine; Visit Provider Internal Medicine Cardiovascular Disease | DX: I49.3 Ventricular premature depolarization (principal) | CPT/HCPCS: 93010 ==

== ENCOUNTER → 2025-03-10 16:25 | Outpatient (BNV) | payer MEDICARE, MEDICAID, SELFPAY | PROVIDERS: Visit Provider Radiology Diagnostic Radiology | DX: R07.9 Chest pain, unspecified (principal) | CPT/HCPCS: 71045 ==

== ENCOUNTER 2025-05-22 12:21 | Emergency (ER) | payer MEDICARE, MEDICAID, SELFPAY ==
--- NOTE | 2025-05-22 | ECG_ITS ---
Test Reason : WEAKNESS Blood Pressure : */* mmHG Vent. Rate : 57 BPM Atrial Rate : 57 BPM P-R Int : 124 ms QRS Dur : 86 ms QT Int : 596 ms P-R-T Axes : 11 9 -12 degrees QTcB Int : 580 ms Sinus bradycardia with occasional Premature ventricular complexes ST & T wave abnormality, consider inferior ischemia ST & T wave abnormality, consider anterolateral ischemia Prolonged QT Abnormal ECG When compared with ECG of 10-Mar-2025 16:09, Minimal criteria for Inferior infarct are no longer Present QT has lengthened Referred By: Generic ED Physician Electronically Signed By: LORRI LUCAS
[2025-05-22 12:29] VITALS: BP 145/52; PULSE 57; RESP 16; TEMP 36.5; O2SAT 100; BMI 25.8
[2025-05-22 13:05] VITALS: BP 133/59; PULSE 50; RESP 20; TEMP 36.6; O2SAT 97
[2025-05-22 13:11] LABS: MANUAL DIFF FLAG NO
[2025-05-22 13:13] LABS: Basophils Absolute Auto 0.1 X10*3/uL (0.0-0.2); Basophils Percent Auto 0.5 % (0-2); Eosinophils Absolute Auto 0.7 X10*3/uL (0.0-0.4); Eosinophils Percent Auto 6.2 % (0-4); Hematocrit 32.7 % (37.0-47.0); Hemoglobin 10.9 g/dl (12.0-16.0); Imm Gran Abs Auto 0.14 X10*3/uL (0.00-0.03); Imm Gran Pct Auto 1.3 % (0.0-0.4); Lymphocytes Absolute Auto 1.9 X10*3/uL (1.2-4.9); Lymphocytes Percent Auto 18.2 % (20-40); Mean Corpuscular HGB Conc 33.3 g/dl (31.0-35.0); Mean Corpuscular Hemoglobin 27.5 pg (27.0-33.0); Mean Corpuscular Volume 82.6 fL (80.0-98.0); Mean Platelet Volume 11.9 fL (9.4-12.3); Monocytes Percent Auto 9.2 % (2-11); Neutrophils Absolute Auto 6.8 x10*3/uL (2.0-8.3); Neutrophils Percent Auto 64.6 % (45-73); Platelet Count 175 X10*3/uL (160-400); Red Blood Count 3.96 X10*6/uL (4.20-5.50); Red Cell Distribution Width 15.6 % (11.0-16.0); White Blood Count 10.6 X10*3/uL (4.8-10.8)
--- OUTSIDE RECORDS SUMMARY | 2025-05-22 13:21 | XMS_ITS | Clinical Summary ---
Author Organization [employer] Address [address] [facility] [address] [place] [address] Care Team Providers Care Sql Programmer Name Role Phone Erika Morris MD [...] BEDTIME 30 tablet 11 11/23/20 24 Active calcitriol (Rocaltrol) 0.25 MCG capsule Take 1 capsule by mouth Once per day. 11/27/19 25 Active famotidine (Pepcid) 20 MG tablet Take 1 tablet by mouth Once per day. 11/27/19 25 Active calcium carbonate EX (Tums E-X) 750 MG chewable tablet Chew 1 tablet (750 mg) before breakfast and before evening meal. 60 tablet 11 01/06/20 25 026 Active clotrimazole (Lotrimin) 1 % cream APPLY 1 GRAM TOPICALLY TO AFFECTED AREA(S) TWICE DAILY DIRECTED FOR 28 DAYS 30 g 2 02/24/20 25 Active Lidocaine, Anorectal, 5 % cream apply topically to the affected area(s) twice dailyapply topically to the affected area(s) twice daily 28 g 3 02/24/20 25 Active Gas Relief Extra Strength 125 MG chewable tabletIndicati ons:Gastroesop hageal reflux disease, unspecified whether esophagitis present CHEW 1 TABLET BY MOUTH 4 TIMES A DAY IN THE MORNING, AT NOON, IN THE EVENING, AND AT BEDTIME NEEDED FOR > 2 LOOSE STOOL , DO NOT EXCEED 4 DAYS / STOP FOR CONSTIPATION 90 tablet 3 04/05/20 25 Active Diclofenac Sodium 1 % gel APPLY 1 INCH TO AFFECTED AREA(S) TWICE DAILY IN THE MORNING AND AT BEDTIME NEEDED FOR PAIN 100 g 2 04/12/20 25 Active levothyroxine (Synthroid, Levoxyl) 100 MCG tablet TAKE 1 TABLET BY MOUTH DAILY IN THE MORNING BEFORE BREAKFAST 30 tablet 2 05/20/20 25 Active levothyroxine (Synthroid, Levoxyl) 100 MCG tablet TAKE 1 TABLET BY MOUTH EVERY MORNING BEFORE BREAKFAST 30 tablet 2 01/21/20 25 025 Discontinued Active Problems Problem Noted Date Diagnosed Date [...] Pressure injury of left buttock, stage 1 Assessment & Plan (09/08/2024 2:42 PM EDT): [...] electrolyte imbalance, corrected Pt has underlying microvascular ACADEMIC ADVISEMENT DIRECTOR compromise. Mental status is significantly improved, will [...] family is working with insurance to increase MUSICAL INSTRUMENT MAKER hours. She will use transport wheelchair for longer transfers. Assessment & Plan (08/13/2024 3:13 PM EDT): Will send PT at home as gait has deteriorated since SNF discharge. Discussed with pt and MUSICAL INSTRUMENT MAKER/daughter regarding full precautions. Adenomatous polyp of colon [...] health service PLAN: 1. Follow up with [facility] [place]: Not recommended for follow-up 2. Patient goal is to engage in OP therapy 3. Behavioral Recommendations a. Patient will engage in OP therapy once established b. Patient may request to speak with a C during next PCP appointment, if needed. Assessment [...] Currently off treatment (Lenalidomide was given at SNF) for at least 1 month. Will discuss with Dr. Ernst Simms at next weeks appointment. We discussed with Pt and family regarding preventing falls due to high risk of fractures. Will order home safety evaluation and prescribe DME as needed. Monitor electrolytes Assessment & Plan (03/28/2023 2:09 PM EDT): seems to be stable on denosumab maintenance ever three months FU with [facility] oncology continue close follow up with oncology [...] prescription next week continue close fu with FILM ARCHIVIST nurse pt unable to void today, reminded [...] Encounters Date Type Department Care Team Description 05/22/2025 Orders Only GENERIC EXTERNAL DATA DEPARTMENT Provider, Generic External Data 05/20/2025 Refill [facility] [address] [place] [address] Erika Morris MD 04/11/2025 Refill [facility] [address] [place] [address] Erika Morris MD 04/04/2025 Refill [facility] [address] [place] [address] Erika Morris MD Gastroesophageal reflux disease, unspecified whether esophagitis present 03/03/2025 Telephone [facility] [address] [place] [address] Erika Morris MD ER Follow-up 02/23/2025 Refill [facility] [address] [place] [address] Erika Morris MD 02/23/2025 Refill [facility] [address] [place] [address] Roseanna Berger MD Muscle spasm of back from Last 3 Months Immunizations Immunization Administration Dates Next Due Influenza High-dose Quadrivalent [...] the past 12 months, has t he DC Devices, gas, oil or water company threatened to [...] 76 01/06/2025 11:31 AM EST Temperature 36.6 C (97.8 F) 01/06/2025 11:31 AM EST Respiratory Rate 17 01/06/2025 11:31 AM EST [...] 08/02/2021, 05/23/2021 Depression Monitoring 09/28/2023 03/28/2023, 023 SDOH Screening 03/28/2024 03/28/2023 Tobacco Screening 01/06/2026 [...] Procedure Name Priority Date/Time Associated Diagnosis Comments CBC WITH AUTO DIFFERENTIAL Routine 05/22/2025 1:03 PM EDT LIPID PANEL WITH REFLEX TO DIRECT LDL Routine 04/16/2023 11:12 AM EDT Stage 3b chronic kidney disease (CMS/HCC) from Last 3 Months or Most Recently Relevant to Health Maintenance Results * (ABNORMAL) CBC auto differential (05/22/2025 1:03 PM EDT) White Blood Count 10.6 4.8 - 10.8 X10*3/uL [facility] Red Blood Count 3.96(L) 4.20 - 5.50 X10*6/uL [facility] Hemoglobin 10.9(L) 12.0 - 16.0 g/dl [facility] Hematocrit 32.7(L) 37.0 - 47.0 % [facility] Mean Corpuscular Volume 82.6 80.0 - 98.0 fL [facility] Mean Corpuscular Hemoglobin 27.5 27.0 - 33.0 pg [facility] Mean Corpuscular HGB Conc 33.3 31.0 - 35.0 g/dl [facility] Red Cell Distribution Width 15.6 11.0 - 16.0 % [facility] Platelet Count 175 160 - 400 X10*3/uL [facility] Mean Platelet Volume 11.9 9.4 - 12.3 fL [facility] Neutrophils Percent Auto 64.6 45 - 73 % [facility] Imm Gran Pct Auto 1.3(H) 0.0 - 0.4 % [facility] Lymphocytes Percent Auto 18.2(L) 20 - 40 % [facility] Monocytes Percent Auto 9.2 2 - 11 % [facility] Eosinophils Percent Auto 6.2(H) 0 - 4 % [facility] Basophils Percent Auto 0.5 0 - 2 % [facility] NRBC Pct Auto 0.0 0.0 - 0.2 /100WBC [facility] Neutrophils Absolute Auto 6.8 2.0 - 8.3 x10*3/uL [facility] Imm Gran Abs Auto 0.14(H) 0.00 - 0.03 X10*3/uL [facility] Lymphocytes Absolute Auto 1.9 1.2 - 4.9 X10*3/uL [facility] Monocytes Absolute Auto 1.0 0.1 - 1.2 X10*3/uL [facility] Eosinophils Absolute Auto 0.7(H) 0.0 - 0.4 X10*3/uL [facility] Basophils Absolute Auto 0.1 0.0 - 0.2 X10*3/uL [facility] NRBC Abs Auto 0.000 0.0 - 0.012 X10*3/uL [facility] 05/22/2025 1:03 PM EDT 05/22/2025 1:10 PM EDT us Generic External Data Provider LAB BLOOD ORDERAB LES Final Result [facility] [address] [place] [phone] * (ABNORMAL) Lipid Panel with Reflex to Direct LDL (04/16/2023 11:12 AM EDT) Cholesterol, Total 187 <200 mg/dL [facility] HDL Cholesterol 66 > OR = 50 mg/dL [facility] Triglycerides 98 <150 mg/dL [facility] LDL Cholesterol 102(H) mg/dL (calc) [facility] Comment: Reference range: <100 Desirable range <100 mg/dL for primary prevention; <70 mg/dL for patients with CHD or diabetic patients with > or = 2 CHD risk factors. LDL-C is now calculated using the John-Lourdes calculation, which is a validated novel method providing better accuracy than the Friedewald equation in the estimation of LDL-C. John SS et al. DOMINIQUE. 2013;310(19): 2422-8034 (http://education.The Fred Rogers/faq/JED697) Chol/HDLC Ratio 2.8 <5.0 (calc) [facility] Non-HDL Cholesterol 121 <130 mg/dL (calc) [facility] Comment: For patients with diabetes plus 1 major ASCVD risk factor, treating to a non-HDL-C goal of <100 mg/dL (LDL-C of <70 mg/dL) is considered a therapeutic option. 04/16/2023 11:1 2 AM EDT 04/16/2023 11:13 AM EDT Narrative [facility] - 04/16/2023 10:44 PM EDT FASTING:YES FASTING: YES us Erika Morris MD LAB BLOOD ORDERABLES Fin al Result [facility] [address] [facility], [place] [address] [facility] [address] [place] [address] from Last 3 Months or Most Recently Relevant to Health Maintenance Insurance MEDICARE [facility] [employer] Advance Directives Documents on File Type Date Recorded Patient Marketing Project Coordinator Expl anation Advance Directives and Living Will 07/09/2024 4:07 PM [facility] Care Teams Sql Programmer Relationship Specialty Start Date End Date Erika Morris MD [address] [place] [phone] PCP - General Family Medicine 08/07/18 Héctor DOMINGUEZ 10/19/24
[2025-05-22 13:31] LABS: Alanine Aminotransferase 33 U/L (0-31); Albumin Level 3.8 g/dL (3.5-5.0); Alkaline Phosphatase 147 U/L (39-117); Anion Gap 14 (12-20); Aspartate Amino Transferase 22 U/L (5-31); Bilirubin Total 0.4 mg/dL (0.0-1.0); Blood Urea Nitrogen 23 mg/dL (9-16); Calcium 7.2 mg/dL (8.4-10.2); Carbon Dioxide 21 mmol/L (22-29); Chloride 113 mmol/L (96-108); Creatinine Clr Calc Pharmacy 33.5; Estimated Glomerular Filt Rate 40; Glucose Random 83 mg/dL (60-115); Magnesium 0.9 mg/dL (1.6-2.6); Potassium 3.3 mmol/L (3.3-5.1); Sodium 145 mmol/L (135-145); Total Protein 7.3 g/dL (6.5-8.0)
[2025-05-22 13:34] LABS: Troponin-I High Sensitivity 7.7 ng/L (<3.5-17.0)
[2025-05-22 13:51] LABS: Influenza A PCR NEGATIVE (Negative); Influenza B PCR NEGATIVE (Negative); Resp Syncy Virus RNA Qual PCR NEGATIVE (Negative); SARS COV2 PCR INHOUSE NEGATIVE (Negative)
--- NOTE | 2025-05-22 13:53 | ED.GENADULT ---
HPI - General Adult General Chief complaint: Nausea/Vomiting/Diarrhea Stated complaint: diarrhea Time Seen by Provider: 05/22/25 12:48 Source: patient, RN notes reviewed, old records reviewed and nail puller Mode of arrival: ambulatory Limitations: language barrier History of Present Illness ED Provider: José HPI narrative: 79-year-old female with past medical history significant for multiple myeloma follow up with Dr. Cevallos, hypophosphatemia, hypomagnesemia, history of H pylori presents for evaluation of diarrhea. Patient reports that she has had diarrhea on and off for 1 year. She reports that her MARKET DIRECTOR today suggested she come to the emergency department. The patient reports that she has not been on any antibiotics in the last couple of months She denies any pain pain Denies any black or bloody stool Denies any sick contacts. Related Data Home Medications ?Medication ?Instructions ?Recorded ?Confirmed levothyroxine 75 mcg tablet 75 mcg PO DAILY 10/27/20 01/12/25 aspirin 81 mg chewable tablet 81 mg PO DAILY 12/16/20 01/12/25 mirtazapine 30 mg tablet 30 mg PO BEDTIME 12/16/20 01/12/25 fluoxetine 40 mg capsule 1 cap PO DAILY 05/12/22 01/12/25 loperamide 2 mg tablet 2 mg PO Q4H PRN Loose Stool 02/25/24 01/12/25 trazodone 50 mg tablet 12.5 mg PO BID 09/18/24 01/12/25 lidocaine 5 % topical cream 1 appl topical BID 11/24/24 01/12/25 Previous Rx's ?Medication ?Instructions ?Recorded calcium carbonate (Oyster Shell 500 mg PO TID 30 days #90 tabs 05/13/22 Calcium 500) ondansetron 4 mg disintegrating 4 mg PO Q8H PRN nausea and 09/02/24 tablet vomiting #5 tabs magnesium oxide 250 mg PO BID #60 tabs 09/24/24 sodium bicarbonate 650 mg tablet 650 mg PO TID #90 tabs 09/24/24 calcitriol 0.25 mcg capsule 0.25 mcg PO DAILY #7 caps 11/27/24 famotidine 20 mg tablet (Pepcid) 20 mg PO DAILY #30 tabs 11/27/24 lenalidomide 10 mg capsule 10 mg PO DAILY #14 caps 05/11/25 (Revlimid) magnesium 250 mg tablet 250 mg PO DAILY #7 tabs 05/22/25 Allergies Allergy/AdvReac Type Severity Reaction Status Date / Time No Known Allergies (No Known Allergy Verified 05/22/25 12:35 Allergies*) Review of Systems Constitutional: Constitutional: Denies body ache(s), Denies chills, Denies fever(s) and Denies headache(s) Eyes: Eyes: Denies blurry vision ENT: Denies vertigo, Denies dizziness, Denies dry mouth and Denies headache(s) Cardiovascular: Cardiovascular: Denies chest pain Gastrointestinal: Gastrointestinal: Denies abdominal pain, Denies melena, Reports diarrhea, Reports loose stools, Denies nausea and Denies vomiting Musculoskeletal: Musculoskeletal: Denies back pain Neurologic: Denies vertigo, Denies dizziness and Denies headache(s) [facility] Past Medical History Medical History Multiple myeloma Chronic diarrhea Tubulovillous adenoma Depression H/O gastroesophageal reflux (GERD) Hx of multiple myeloma Hypothyroidism Surgical History H/O tooth extraction History of bone marrow biopsy History of cholecystectomy Family History Family History Daughter Diabetes Thyroid cancer Social History Social History Household Members: Family Household Members Other:: adult son Housing: Apartment Are you a primary furnace caretaker to a significant other at home: No Do you presently have visiting nurse or other home services: Yes Alcohol intake: never Comment: 1:[address] until 23:00 due to staffing constraints Patient Tobacco Use Status: Former Tobacco user Tobacco use type: Cigarette Years Smoked: 20 e-Cigarette/Vaping Use: Never Used Second Hand Smoke Exposure: No Substance Use Type: Marijuana Advance Directives: Yes Advance Directives on File: Yes Advance Directives Date on File: 03/15/21 service: No Current occupational status: unemployed Physical Exam ED Vital Signs: Vital Signs - 24 hr 05/22/25 12:29 05/22/25 13:05 05/22/25 14:18 Temperature 97.7 F 97.9 F Pulse Rate 57 50 47 L Respiratory Rate 16 20 16 Blood Pressure 145/52 H 133/59 L 137/50 L Pulse Oximetry 100 97 100 Oxygen Delivery Method Room Air Room Air Room Air 05/22/25 15:44 Temperature 97.6 F Pulse Rate 50 Respiratory Rate 18 Blood Pressure 149/96 H Pulse Oximetry 99 Oxygen Delivery Method Room Air BMI result Body Mass Index 25.8 Const General: healthy appearing, comfortable, no acute distress, alert and awake Nutritional Appearance: well nourished Orientation/consciousness: patient oriented x3 HENMT Head: Yes normocephalic and Yes atraumatic Eyes Eyelids: Yes eyelids normal Conjunctivae: conjunctivae normal Sclerae: sclerae normal Corneas: corneas normal Pupils: Equal, round and reactive pupils present EOM: EOMs intact bilaterally Neck Neck: Yes full ROM Resp Effort & Inspection: normal respiratory effort, able to speak in complete sentences and not labored GI Inspection: No distended Palpation (GI): Soft to palpation, not firm, nontender, no guarding and not rigid Skin General skin exam: elasticity normal Neuro General: patient oriented x3 Cranial nerves: Yes Equal, round and reactive pupils present and Yes Bilaterally intact EOM present Cognition (Neuro): normal cognition Extrem Other: Moving all extremities well without any obvious deformities Course Reevaluation(s) Reevaluation #1: Patient's magnesium was low at 0.9 which is likely due to her diarrhea. This was repleted IV and a repeat test was 1.7. The patient remains asymptomatic, she does have some mild bradycardia in the 50s which is sinus and this is consistent with her baseline, denies any chest pain, shortness of breath, palpitations. The patient has not had a bowel movement since being in the emergency department, and therefore we have been unable to test for C diff, however given that this is a chronic issue, she has not been on any recent antibiotics and has not been able to have a bowel movement I feel that C diff in his less likely and the patient can safely be discharged Time: 17:20 Medications Administered Discontinued Medications Generic Name Dose Route Start Last Admin Trade Name Freq PRN Reason Stop Dose Admin Magnesium Sulfate 2 gm in 50 mls @ 150 mls/hr 05/22/25 13:30 05/22/25 15:56 Magnesium Sulfate/H2o IV 05/22/25 13:49 Infused ONCE ONE Infusion Magnesium Oxide 800 mg 05/22/25 13:30 05/22/25 14:11 Magnesium Oxide 400 Mg Tablet PO 05/22/25 13:31 800 mg ONCE ONE Administration Medical Decision Making Medical Decision Making [facility] Narrative: [age] old female with a past medical history as above presents for evaluation of diarrhea. She denies any weakness, denies any pain, denies any rectal bleeding, black or bloody stool. She has no fevers. She is here at the advice of her MARKET DIRECTOR. Plan for basic labs and a C diff test. The patient has not been any antibiotics recently. Given that she is well-appearing, denies pain and has no tenderness on exam we will defer CT imaging at this time. Differential Diagnosis Differential Diagnoses: The differential diagnosis associated with the presentation includes Acute diarrhea Electrolyte abnormality C diff colitis Diverticulitis less likely Lab Data 05/22/25 13:03 05/22/25 13:03 Labs: Lab Results 05/22/25 05/22/25 05/22/25 Range/Units 13:03 15:47 16:59 WBC 10.6 (4.8-10.8) X10*3/uL RBC 3.96 L (4.20-5.50) X10*6/uL Hgb 10.9 L (12.0-16.0) g/dl Hct 32.7 L (37.0-47.0) % MCV 82.6 (80.0-98.0) fL MCH 27.5 (27.0-33.0) pg MCHC 33.3 (31.0-35.0) g/dl RDW 15.6 (11.0-16.0) % Plt Count 175 (160-400) X10*3/uL MPV 11.9 (9.4-12.3) fL Immature Gran % (Auto) 1.3 H (0.0-0.4) % Neut % (Auto) 64.6 (45-73) % Lymph % (Auto) 18.2 L (20-40) % [place] % (Auto) 9.2 (2-11) % Eos % (Auto) 6.2 H (0-4) % Baso % (Auto) 0.5 (0-2) % Lymph # (Auto) 1.9 (1.2-4.9) X10*3/uL [place] # (Auto) 1.0 (0.1-1.2) X10*3/uL Eos # (Auto) 0.7 H (0.0-0.4) X10*3/uL Baso # (Auto) 0.1 (0.0-0.2) X10*3/uL Abs Immat Gran (auto) 0.14 H (0.00-0.03) X10*3/uL Absolute Neuts (auto) 6.8 (2.0-8.3) x10*3/uL Absolute Nucleated RBC 0.000 (0.0-0.012) X10*3/uL Nucleated RBC % (auto) 0.0 (0.0-0.2) /100WBC Sodium 145 (135-145) mmol/L Potassium 3.3 D (3.3-5.1) mmol/L Chloride 113 H (96-108) mmol/L Carbon Dioxide 21 L (22-29) mmol/L Anion Gap 14 (12-20) BUN 23 H (9-16) mg/dL Creatinine 1.27 (0.5-1.4) mg/dL Estim Creat Clear Calc 33.5 Estimated GFR 40 Random Glucose 83 (60-115) mg/dL Calcium 7.2 L D (8.4-10.2) mg/dL Magnesium 0.9 L* 1.7 (1.6-2.6) mg/dL Total Bilirubin 0.4 (0.0-1.0) mg/dL AST 22 (5-31) U/L ALT 33 H (0-31) U/L Alkaline Phosphatase 147 H (39-117) U/L Troponin I High Sens 7.7 D (<3.5-17.0) ng/L Total Protein 7.3 (6.5-8.0) g/dL Albumin 3.8 (3.5-5.0) g/dL Urine Color Yellow Urine Appearance Turbid Urine pH 6.0 (5.0-9.0) Ur Specific Wilson 1.015 (1.005-1.025) Urine Protein 100 (2+) H (Neg-Trace) mg/dL Urine Glucose (UA) Negative (Negative) mg/dL Urine Ketones Negative (Negative) mg/dL Urine Blood Small (1+) H (Negative) Urine Nitrite Negative (Negative) Ur Leukocyte Esterase Large (3+) H (Negative) Urine RBC 0-2 (0-2) /HPF Urine WBC >50 H (0-5) /HPF Ur Squamous Epith Cells 3-5 (0-2) /HPF Urine Bacteria 4+ (None Seen) Hyaline Casts 0-2 (0-2) /LPF Influenza Type A (PCR) NEGATIVE (Negative) Influenza Type B (PCR) NEGATIVE (Negative) RSV RNA Qual (PCR) NEGATIVE (Negative) SARS-CoV-2 RNA (RT-PCR) NEGATIVE (Negative) Discharge Plan Discharge Clinical Impression: Chronic diarrhea, Hypomagnesemia Patient Disposition: Home, Self-Care Instructions: Acute Diarrhea (ED), Hypomagnesemia (ED) Additional Instructions: Your magnesium was low today and 0.9 and was rechecked to be 1.7 which is slightly below normal. I do recommend that you take your magnesium daily for the next 7 days You may use Imodium as needed for your diarrhea. Follow-up with your primary doctor, return for new or worsening symptoms Prescriptions: New magnesium 250 mg tablet 250 mg PO DAILY Qty: 7 0RF No Action levothyroxine 75 mcg tablet 75 mcg PO DAILY lenalidomide [Revlimid] 10 mg Capsule 10 mg PO DAILY Qty: 14 0RF Rx Instructions: Swallow whole with glass of water; do not open, crush, chew , break, or dissolve. Take 1 cap daily for 2 week and then stop for 2 weeks. mirtazapine 30 mg tablet 30 mg PO BEDTIME aspirin 81 mg tablet,chewable 81 mg PO DAILY fluoxetine 40 mg capsule 1 cap PO DAILY calcium carbonate [Oyster Shell Calcium 500] 500 mg calcium (1,250 mg) Tablet 500 mg PO TID 30 Days Qty: 90 0RF ondansetron 4 mg tablet,disintegrating 4 mg PO Q8H PRN (Reason: nausea and vomiting) Qty: 5 0RF trazodone 50 mg tablet 12.5 mg PO BID sodium bicarbonate 650 mg Tablet 650 mg PO TID Qty: 90 0RF magnesium oxide 250 mg magnesium tablet 250 mg PO BID Qty: 60 0RF lidocaine 5 % cream 1 appl topical BID calcitriol 0.25 mcg Capsule 0.25 mcg PO DAILY Qty: 7 0RF famotidine [Pepcid] 20 mg tablet 20 mg PO DAILY Qty: 30 0RF loperamide 2 mg Tablet 2 mg PO Q4H PRN (Reason: Loose Stool) Rx Instructions: administer after each loose stool until symptoms controlled; do not exceed 8 mg per 24 hrs Print Language: Czech
[2025-05-22] MEDS: Magnesium Sulfate/H2O 2 GM/50 ML PIGGYBACK IV (14:11)
[2025-05-22] MEDS: Magnesium Oxide 400 MG TABLET 800 MG PO (14:11)
[2025-05-22 14:18] VITALS: BP 137/50; PULSE 47; RESP 16; O2SAT 100
[2025-05-22 15:44] VITALS: BP 149/96; PULSE 50; RESP 18; TEMP 36.4; O2SAT 99
--- NOTE | 2025-05-22 15:49 | PC.NURSE ---
This RN and tech helped pt out of bed to WC and to the BR, pt was able to urinate but no BM
--- NOTE | 2025-05-22 15:52 | PC.NURSE ---
Jana (pt career development counselor) number [phone] Maurice Doan (son) [phone]
[2025-05-22 15:57] LABS: Appearance Urine Turbid; Color Urine Yellow; Glucose Urine UA Negative (Negative); Leukocyte Esterase Urine Large (3+) (Negative); Nitrite Urine Negative (Negative); Specific Gravity - Urine 1.015 (1.005-1.025); UMIC TRIGGER UACC YES; Urine Blood Small (1+) (Negative); Urine Ketones Negative (Negative); Urine Protein 100 (2+) mg/dL (Neg-Trace)
[2025-05-22 16:21] LABS: Bacteria Urine 4+ (None Seen); Hyaline Casts Urine 0-2 /LPF (0-2); RBC Urine 0-2 /HPF (0-2); UACC Culture Trigger YES; WBC Urine >50 /HPF (0-5)
[2025-05-22 17:18] LABS: Magnesium 1.7 mg/dL (1.6-2.6)
[2025-05-22 17:49] VITALS: BP 149/96; PULSE 50; RESP 18; TEMP 36.4; O2SAT 99
== END 2025-05-22 17:50 | disposition home or self-care (01) ==
PROVIDERS: Physician Assistant; Emergency Provider Emergency Medicine; PCP Internal Medicine
DX: N39.0 Urinary tract infection, site not specified (principal); B96.1 Klebsiella pneumoniae [K. pneumoniae] as the cause of diseases classified elsewhere; R11.2 Nausea with vomiting, unspecified; E83.42 Hypomagnesemia; R00.1 Bradycardia, unspecified; R19.7 Diarrhea, unspecified; R94.31 Abnormal electrocardiogram [ECG] [EKG]; Z03.818 Encounter for observation for suspected exposure to other biological agents ruled out; Z79.899 Other long term (current) drug therapy; Z87.891 Personal history of nicotine dependence
CPT/HCPCS: 0241U; 36415; 80053; 81001; 83735; 84484; 85025; 87086; 87088; 87186; 93005; 96365; 96366; 99284; 99285; J3475

== ENCOUNTER → 2025-05-22 12:47 | Outpatient (BNV) | payer MEDICARE, MEDICAID, SELFPAY | PROVIDERS: Emergency Provider Emergency Medicine; PCP Internal Medicine; Visit Provider Internal Medicine | DX: I49.3 Ventricular premature depolarization (principal); R00.1 Bradycardia, unspecified | CPT/HCPCS: 93010 ==

== ENCOUNTER 2025-06-04 15:23 | Outpatient (REF) | payer MEDICARE, MEDICAID, SELFPAY ==
--- OUTSIDE RECORDS SUMMARY | 2025-06-04 15:26 | XMS_ITS | Clinical Summary ---
Author Organization [facility] Address [address] [place] [address] [address] [place] [phone] Phone Care Team Providers Care Construction Site Crossing Guard Name Role Phone Erika Morris MD Primary Care Provider Allergies No known active allergies Medications aspirin [...] Care Team (Late st Contact Info) Description 07/05/2025 2:15 PM EDT Office Visit [facility] [address] [place] [phone] Nawaf Guidry MD [address] [place] [address] Health Maintenance Due Date Last Done Comments Pneumococcal Vaccine: 50+ Years (3 of 3 - PCV) 01/07/2020 01/07/2019, 06/28/2014 Influenza Vaccine (#1) 2025 4, 09/03/2018, 09/03/2017 Pneumococcal Vaccine: Peds (0 to 5 Years) and At-Risk Patients (6 to 49 Years) Discontinued 01/07/2019, 06/28/2014 Hepatitis B Vaccine Aged Out No longe r eligible based on patient's age to complete this topic Insurance Medicaid [place] Medicare Medicare Medicaid [place] Care Teams Construction Site Crossing Guard Relationship Specialty Start Date End Date Erika Morris MD [address] [place] [phone] PCP - General Internal Medicine 11/08/21
--- OUTSIDE RECORDS SUMMARY | 2025-06-04 15:26 | XMS_ITS | Clinical Summary ---
Author Organization [employer] Address [address] [facility] [address] [place] [address] Care Team Providers Care Restaurant Hostess Name Role Phone Erika Morris MD Primary [...] BREAKFAST 30 tablet 2 05/20/20 25 Active Saccharomyces boulardii (probiotic) 250 MG capsule Take 1 capsule (250 mg) by mouth 2 times daily. 60 capsule 1 06/04/20 25 Active levothyroxine (Synthroid, Levoxyl) 100 MCG [...] with plan Hypomagnesemia 09/08/2024 Assessment & Plan (06/04/2025 1:33 PM EDT): Usually related to diarrhea. Diarrhea resolved now, advised to take extra magnesium as needed diarrhea more than 2 days. Assessment & Plan (12/23/2024 8:14 PM EST): [...] electrolyte imbalance, corrected Pt has underlying microvascular BIRD TENDER compromise. Mental status is significantly improved, will continue to treat depression and monitor electrolytes closely. Hypercalcemia 07/09/2024 Mixed stress and urge urinary incontinence 07/09 Assessment & Plan (06/04/2025 1:49 PM EDT): Seems to be baseline, given history of recently untreated UTI, I will repeat UA and culture. Patient was unable to void for urine dip today at the visit, she will return to the lab to provide urine, she needs to let me know when she drops sit so that I can follow-up results. I will send Rx to [facility] pharmacy in [facility] [place] if result comes up on the weekend, otherwise antibiotics can be sent to [facility] pharmacy Saturday through Saturday Continue wearing pull-ups, increase water intake and hydration Advised to ambulate as tolerated, avoid prolonged sitting Assessment & Plan (09/08/2024 3:03 PM EDT): [...] family is working with insurance to increase HOTEL GENERAL MANAGER hours. She will use transport wheelchair for longer transfers. Assessment & Plan (08/13/2024 3:13 PM EDT): Will send PT at home as gait has deteriorated since SNF discharge. Discussed with pt and HOTEL GENERAL MANAGER/daughter regarding full precautions. 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 Continue taking Imodium as needed. Advised to hold Lokelma (BIW for chronic hyperkalemia) as needed diarrhea more than 2 days, Advised regarding proper hydration Assessment & Plan (12/23/2024 8:28 PM EST): [...] Other Recurrent major depression in partial remission ([facility]) Patient ready to address current needs Yes Strengths include motivation to seek behavioral health service PLAN: 1. Follow up with [facility] [place]: Not recommended for follow-up 2. Patient goal [...] Currently off treatment (Lenalidomide was given at [facility]) for at least 1 month. Will discuss with Dr. Ernst Simms at next weeks appointment. We discussed with Pt and family regarding preventing falls due to high risk of fractures. Will order home safety evaluation and prescribe DME as needed. Monitor electrolytes Assessment & Plan (03/28/2023 2:09 PM EDT): seems to be stable on denosumab maintenance ever three months FU with [facility] oncology continue close follow [...] prescription next week continue close fu with TECHNICAL RESEARCH SCIENTIST nurse pt unable to void today, reminded [...] Encounters Date Type Department Care Team Description 06/04/2025 12:00 PM EDT Office Visit [facility] [address] [place] [address] Erika Morris MD Chronic diarrhea (Primary Dx); Mixed stress and urge urinary incontinence; Hypomagnesemia 06/04/2025 Travel 05/25/2025 Telephone [facility] [address] [place] [address] Erika Morris MD Nurse Triage 05/22/2025 Orders Only GENERIC EXTERNAL DATA DEPARTMENT Provider, Generic External Data 05/20/2025 Refill [facility] [address] [place] [address] Erika Morris MD 04/11/2025 Refill [facility] [address] [place] [address] Erika Morris MD 04/04/2025 Refill [facility] [address] [place] [address] Erika Morris MD Gastroesophageal reflux disease, unspecified whether esophagitis present from Last 3 Months Immunizations Immunization Administration [...] Answer Date Recorded Patient Health Questionnaire-9 Score 3 06/04/2025 Patient Health Questionnaire-9 Score 3 06/04/2025 Last PHQ-9: Questionnaire Data Not on file 0 06/04/2025 Housing Stability Answer Date Recorded What is your housing situation today? I have jerricaruss piedra 06/04/[address] you li ve. Do you have problems with any of the following? None of the above 06/04/2025 Food Insecurity Answer Date Recorded Within the past 12 months, y ou worried that your food would run out before you got money to buy more: Never True 06/04/2025 Within the past 12 months,th e food you bought just didn't last and you didn't have enough money to get more: Never True 09/2025 Transportation Answer Date Recorded In the past 12 months, has l ack of transportation kept you from medical appts, meetings, work or from getting things needed for daily living? No 06/04/2025 Utilities Answer Date Recorded In the past 12 months, has t he electric, gas, oil or water company threatened to shut off services in your home? No 06/04/2025 Depression Answer Date Recorded Patient Health Questionnaire-2 Score 0 06/04/2025 Internet Access Answer Date Recorded Internet Access Q1 Yes 06/04/2025 Internet Access Q2 Not on file 06/04/2025 Comments Unknown Sex and Gender Information Value Date Recorded Sex Assigned at Female 09/24/2022 10:29 AM EDT Legal Sex Female 10:29 AM EDT Gender Identity Female 09/24/2022 10:29 AM EDT Sexual Orientation Choose not to disclose 2021 10:29 AM EDT Last Filed Vital Signs Vital Sign Reading Time Taken Comments Blood Pressure 140/60 06/04/2025 11:50 AM EDT Pulse 58 06/04/2025 11:50 AM EDT Temperature 36.1 C (97 F) 06/04/2025 11:50 AM EDT Respiratory Rate 16 06/04/2025 11:50 AM EDT Oxygen Saturation 100% 11/23/2024 10:03 AM EST Inhaled Oxygen Concentration - - Weight 68.5 kg (151 lb) 06/04/2025 11:50 AM EDT Height 162.3 cm (5' 3.88 ) 06/04/2025 11:50 AM E DT Body Mass Index 26.02 06/04/2025 11:50 AM EDT Plan of Treatment Upcoming Encounters Date Type Department Care Team (Late st Contact Info) Description 08/10/2025 12:00 PM EDT Office Visit [facility] [address] [place] [address] Erika Morris MD [address] [place] [address] Health Maintenance Due Date Last Done Comments Dental Oral Exam 1945 Dental Prophylaxis 1945 Dental X-Ray: Bitewings 1944 Dental X-Ray: Full Mouth 1944 Zoster Vaccines (1 of 2) 1963 RSV Patients and Patients Aged 60 years or older (1 - 1-dose 75+ series) 2019 Pneumococcal Vaccine: 50+ Years (3 of 3 - PCV) 01/07/2020 01/07/2019, 06/28/2014 COVID-19 Vaccine (3 - Pfizer risk series) 08/30/2021 08/02/2021, 05/23/2021 Influenza Vaccine (#1) 2025 , 01/17/2021, 09/03/2018, Additional history exists Alcohol/Substance Use Screening 06/04/2026 06/04/2025 Depression Screening 06/04/2026 06/04/2025, 06/04/20 SDOH Screening 06/04/2026 06/04/2025 Tobacco Screening 06/04/2026 06/04/2025 Lipid Panel 04/16/2028 04/16/2023, 09/18/2021 DTaP/Tdap/Td Vaccines [...] Priority Date/Time Associated Diagnosis Comments MAGNESIUM Routine 05/22/2025 4:59 PM EDT URINALYSIS, COMPLETE, WITH REFLEX TO CULTURE Routine 05/22/2025 3:47 PM EDT HIGH SENSITIVITY TROPONIN I Routine 05/22/2025 1:03 PM EDT MAGNESIUM Routine 05/22/2025 1:03 PM EDT COMPREHENSIVE METABOLIC PANEL Routine 05/22/2025 1:03 PM EDT CBC WITH AUTO DIFFERENTIAL Routine 05/22/2025 1:03 PM EDT SARS COV2/INFLUENZA A/B AND RSV RNA QL NAAT Routine 05/22/2025 1:03 PM EDT CULTURE, URINE, ROUTINE Routine 05/22/2025 12:00 AM EDT LIPID PANEL WITH REFLEX TO DIRECT LDL Routine 04/16/2023 11:12 AM EDT Stage 3b chronic kidney disease (CMS/HCC) from Last 3 Months or Most Recently Relevant to Health Maintenance Results * Magnesium (05/22/2025 4:59 PM EDT) Only the most recent of2 resultswithin the time period is included. Magnesium 1.7 1.6 - 2.6 mg/dL [facility] 05/22/2025 4:59 PM EDT 05/22/2025 5:03 PM EDT us Generic External Data Provider LAB BLOOD ORDERAB LES Final Result [facility] [address] [place] [phone] * (ABNORMAL) Urinalysis, Complete, with Reflex to Culture (05/22/2025 3:47 PM EDT) Color Urine Yellow [facility] Appearance Urine Turbid [facility] PH 6.0 5.0 - 9.0 [facility] Glucose Urine UA Negative Negative mg/dL [facility] Urine Blood Small (1+)(A) Negative [facility] Specific [place] - Urine 1.015 1.005 - 1.025 [facility] Urine Protein 100 (2+)(A) Neg-Trace mg/dL [facility] Urine Ketones Negative Negative mg/dL [facility] Nitrite Urine Negative Negative [facility] Leukocyte Esterase Urine Large (3+)(A) Negative [facility] RBC Urine 0-2 0 - 2 /HPF [facility] Urine WBC >50(A) 0 - 5 /HPF [facility] Urine Squamous Epithelial Cell 3-5 0 - 2 /HPF [facility] Urine Bacteria 4+ None Seen [facility] Hyaline Casts, Urine 0-2 0 - 2 /LPF [facility] 05/22/2025 3:47 PM EDT 05/22/2025 3:52 PM EDT Narrative [facility] - 05/22/2025 4:22 PM EDT [id number], Clean Catch us Generic External Data Provider LAB URINE ORDERAB LES Final Result Performing Organization Address [facility] Co de Phone Number [facility] [address] [place] [phone] * High Sensitivity Troponin I (05/22/2025 1:03 PM EDT) Pathologist [facility] TROPONIN I HIGH SENSITIVITY 7.7 <3.5 - 17.0 ng/L [facility] Comment:The Rogers high sens itivity Troponin-I results should beused in conjunction with other diagnostic information suchas ECG, clinical observations and information, and patientsymptoms to aid in the diagnosis of [place]. 05/22/2025 1:03 PM EDT 05/22/2025 1:10 PM EDT Generic External Data Provider LAB BLOOD ORDERAB LES Final Result Performing Organization Address [facility] Co de Phone Number [facility] [address] [place] [phone] * SARS-CoV-2 RNA, Influenza A/B, and RSV RNA, Ql NAAT (05/22/2025 1:03 PM EDT) Influenza A PCR NEGATIVE Negative [facility] Influenza B PCR NEGATIVE Negative [facility] Resp Syncy Virus RNA Qual PCR NEGATIVE Negative [facility] SARS COV2 PCR NEGATIVE Negative [facility] Comment:All test results mus t be correlated with clinical findings.Negative results do not preclude SARS-CoV2, influenza Avirus, influenza B virus and/or RSV infectionand should not be used as the sole basis for treatment orother patient management decisions. Negative results must becombined with clinical observations, patient history, andepidemiological information.This test has not been evaluated for monitoring treatment ofinfection.This test has been authorized by the FDA under an EmergencyUse Authorization (EUA) for use by authorized laboratories.Testing performed on the [employer] GeneXpert utilizingreal-time RT-PCR.All SARS CoV2 and positive influenza A/B results arereported to [facility]. 05/22/2025 1:03 PM EDT 05/22/2025 1:10 PM EDT us Generic External Data Provider LAB MICROBIOLOGY - GENERAL ORDERABLES Final Result [facility] [address] [place] [phone] * (ABNORMAL) CBC auto differential (05/22/2025 1:03 PM EDT) White Blood Count 10.6 4.8 - 10.8 X10*3/uL [facility] Red Blood Count 3.96(L) 4.20 - 5.50 X10*6/uL [facility] Hemoglobin 10.9(L) 12.0 - 16.0 g/dl [facility] Hematocrit 32.7(L) 37.0 - 47.0 % [facility] Mean Corpuscular Volume 82.6 80.0 - 98.0 fL [facility] Mean Corpuscular Hemoglobin 27.5 27.0 - 33.0 pg [facility] Mean Corpuscular HGB Conc 33.3 31.0 - 35.0 g/dl [facility] Red Cell Distribution Width 15.6 11.0 - 16.0 % [facility] Platelet Count 175 160 - 400 X10*3/uL [facility] Mean Platelet Volume 11.9 9.4 - 12.3 fL [facility] Neutrophils Percent Auto 64.6 45 - 73 % [facility] Imm Gran Pct Auto 1.3(H) 0.0 - 0.4 % [facility] Lymphocytes Percent Auto 18.2(L) 20 - 40 % [facility] Monocytes Percent Auto 9.2 2 - 11 % [facility] Eosinophils Percent Auto 6.2(H) 0 - 4 % [facility] Basophils Percent Auto 0.5 0 - 2 % [facility] NRBC Pct Auto 0.0 0.0 - 0.2 /100WBC [facility] Neutrophils Absolute Auto 6.8 2.0 - 8.3 x10*3/uL [facility] Imm Gran Abs Auto 0.14(H) 0.00 - 0.03 X10*3/uL [facility] Lymphocytes Absolute Auto 1.9 1.2 - 4.9 X10*3/uL [facility] Monocytes Absolute Auto 1.0 0.1 - 1.2 X10*3/uL [facility] Eosinophils Absolute Auto 0.7(H) 0.0 - 0.4 X10*3/uL [facility] Basophils Absolute Auto 0.1 0.0 - 0.2 X10*3/uL [facility] NRBC Abs Auto 0.000 0.0 - 0.012 X10*3/uL [facility] 05/22/2025 1:03 PM EDT 05/22/2025 1:10 PM EDT us Generic External Data Provider LAB BLOOD ORDERAB LES Final Result [facility] [address] [place] [phone] * (ABNORMAL) Comprehensive Metabolic Panel (05/22/2025 1:03 PM EDT) Sodium 145 135 - 145 mmol/L [facility] Potassium 3.3 3.3 - 5.1 mmol/L [facility] Chloride 113(H) 96 - 108 mmol/L [facility] Carbon Dioxide 21(L) 22 - 29 mmol/L [facility] Anion Gap 14 12 - 20 [facility] Urea Nitrogen (BUN) 23(H) 9 - 16 mg/dL [facility] Creatinine, Serum 1.27 0.5 - 1.4 mg/dL [facility] Creatinine Clr Calc Pharmacy 33.5 [facility] Comment:Provided height and weight: 162.56 cm,68.3 kg.eGFR (calculated from the MDRD study equation) and eCrCl(calculated from the Cockcroft-Gault equation) are based ondifferent parameters and may not yield comparable results.If eCrCl result is absurd, please check patient'sheight/weight. Estimated Glomerular Filt Rate 40 [facility] Comment:Chronic Kidney Disea se: Estimated GFR < 60 mL/min/1.91m7Dkkoxk Kidney Disease: Estimated GFR < 15 mL/min/1.73m2 Glucose 83 60 - 115 mg/dL [facility] Calcium 7.2(L) 8.4 - 10.2 mg/dL [facility] Bilirubin, Total 0.4 0.0 - 1.0 mg/dL [facility] Aspartate Amino Transferase 22 5 - 31 U/L [facility] Alanine Aminotransferase 33(H) 0 - 31 U/L [facility] Total Protein 7.3 6.5 - 8.0 g/dL [facility] Albumin Level 3.8 3.5 - 5.0 g/dL [facility] Alkaline Phosphatase 147(H) 39 - 117 U/L [facility] 05/22/2025 1:03 PM EDT 05/22/2025 1:10 PM EDT us Generic External Data Provider LAB BLOOD ORDERAB LES Final Result [facility] [address] [place] [phone] * Culture, Urine, Routine (05/22/2025 12:00 AM EDT) Urine Urine specimen obtained by clean catch procedure / Unknown 05/22/2025 05/22/2025 Comment:UACC Narrative [facility] - 05/24/2025 7:56 AM EDT Klebsiella pneumoniae Quant > 100,000 cfu/mL Klebsiella pneumoniae: Ampicillin 16(R) Klebsiella pneumoniae: Cefazolin 2(S) Klebsiella pneumoniae: Cefepime <=0.12(S) Klebsiella pneumoniae: Ceftriaxone <=0.25(S) Klebsiella pneumoniae: Ciprofloxacin <=0.06(S) Klebsiella pneumoniae: Gentamicin <=1(S) Klebsiella pneumoniae: Nitrofurantoin 32(S) Klebsiella pneumoniae: Trimethoprim/Sulfamethoxazole <=20(S) Specimen Source: Urine clean catch us Generic External Data Provider LAB MICROBIOLOGY - GENERAL ORDERABLES Final Result [facility] [address] [place] [phone] [phone] * (ABNORMAL) Lipid Panel with Reflex to Direct LDL (04/16/2023 11:12 AM EDT) Cholesterol, Total 187 <200 mg/dL [facility] HDL Cholesterol 66 > OR = 50 mg/dL [facility] Triglycerides 98 <150 mg/dL [facility] LDL Cholesterol 102(H) mg/dL (calc) [facility] Comment: Reference range: <100 Desirable range <100 mg/dL for primary prevention; <70 mg/dL for patients with CHD or diabetic patients with > or = 2 CHD risk factors. LDL-C is now calculated using the John-Lourdes calculation, which is a validated novel method providing better accuracy than the Friedewald equation in the estimation of LDL-C. John TAYLOR et al. DOMINIQUE. 2013;310(19): 0286-0463 (http://education.FiTeq.Open Source Storage/faq/TUR799) Chol/HDLC Ratio 2.8 <5.0 (calc) [facility] Non-HDL Cholesterol 121 <130 mg/dL (calc) [facility] Comment: For patients with diabetes plus 1 major ASCVD risk factor, treating to a non-HDL-C goal of <100 mg/dL (LDL-C of <70 mg/dL) is considered a therapeutic option. 04/16/2023 11:1 2 AM EDT 04/16/2023 11:13 AM EDT Narrative [facility] - 04/16/2023 10:44 PM EDT FASTING:YES FASTING: YES Erika Morris MD LAB BLOOD ORDERABLES Fin al Result [facility] [address], [place] [address] [facility] [address] [place] [phone] from Last 3 Months or Most Recently Relevant to Health Maintenance Insurance MEDICARE [facility] Advance Directives Documents on File Type Date Recorded Patient Shank Taper Expl anation Advance Directives and Living Will 07/09/2024 4:07 PM [facility] Proxy Care Teams Restaurant Hostess Relationship Specialty Start Date End Date Erika Morris MD [address] [place] [phone] PCP - General Family Medicine 08/07/18 Héctor YUAN 10/19/24
--- OUTSIDE RECORDS SUMMARY | 2025-06-04 15:26 | XMS_ITS | Encounter Summary ---
Author Organization [employer] [facility] Address [address] [place] [address] Care Team Providers Care Rough Carpenter Name Role Phone Yariel Walton MD Primary Care Provider Encounter Details Date Type Department Care Team (Late st Contact Info) Description 10/19/2024 Lab Requisition [facility] - Main Lab [address] [facility] [place] [address] Yariel Walton MD [address] [place] [address] Chronic kidney disease, unspecified; Essential (primary) hypertension [...] documented as of this encounter Care Teams Rough Carpenter Relationship Specialty Start Date End Date Yariel Walton MD [address] [place] [address] PCP - General Family Medicine 10/12/24 documented as of this encounter
[2025-06-04 16:10] LABS: Appearance Urine Clear; Glucose Urine UA Negative (Negative); PH 5.5 (5.0-9.0); Specific Gravity - Urine 1.015 (1.005-1.025); UMIC TRIGGER UACC YES
[2025-06-04 16:17] LABS: UACC Culture Trigger YES
== END 2025-06-04 15:24 | disposition home or self-care (01) ==
LOC: HO.HHCL 15:23
PROVIDERS: PCP Internal Medicine; Visit Provider Internal Medicine
DX: R35.0 Frequency of micturition (principal)
CPT/HCPCS: 81001; 87086; 87088; 87186

== ENCOUNTER 2025-07-12 19:52 | Emergency (ER) | payer MEDICARE, MEDICAID, SELFPAY ==
--- NOTE | ~2025-07-12 | CT_ITS ---
CLINICAL HISTORY: fall, face planted CT maxillofacial without contrast Comparison: CT/SR - CT HEAD WITHOUT IV CONTRAST - 08/17/24 11:46 EDT Findings: Acute comminuted fracture of the nasal bone, not present on 08/17/[address] There is associated soft tissue swelling. Temporomandibular joints are intact. Paranasal sinuses and mastoid air cells clear. Unremarkable orbital contents. Visualized intracranial contents are within normal limits. No foreign bodies. IMPRESSION: Acute comminuted fracture of the nasal bone This document has been electronically signed by: Yousuf Ferguson MD on 07/13/2025 00:36:40
--- NOTE | ~2025-07-12 | CT_ITS ---
CLINICAL HISTORY: fall, poor historian CT cervical spine without contrast Comparison: None provided Findings: The cervical spine is kyphotic with mild multilevel spondylosis, most pronounced at C4-5. No acute fractures or dislocations. No acute findings on limited view of the intracranial contents. Soft tissues of the neck are normal. No consolidation or effusion at the lung apices. Healed fractures of the posterior right 2nd and 3rd ribs. IMPRESSION: No acute findings. This document has been electronically signed by: Yousuf Ferguson MD on 07/13/2025 00:24:58
--- NOTE | ~2025-07-12 | CT_ITS ---
CLINICAL HISTORY: fall, poor historian CT head without contrast Comparison: CT/SR - CT HEAD WITHOUT IV CONTRAST - 08/17/24 11:46 EDT Findings: No intra-axial mass, midline shift, hydrocephalus, or acute hemorrhage. Age related atrophy and white matter disease. The visualized paranasal sinuses and mastoid air cells are normal. The orbits are within normal limits. There is no acute fracture. IMPRESSION: 1. No acute intracranial findings. This document has been electronically signed by: Yousuf Ferguson MD on 07/13/2025 00:14:31
--- NOTE | ~2025-07-12 | XR_ITS ---
CLINICAL HISTORY: Fall, bruising and swelling 5th digit 3 view left 5th digit Comparison: None Findings: Acute comminuted nondisplaced fracture of the proximal phalanx of the 5th finger. Deformity of the 5th metacarpal most likely represent remote trauma.. Moderate surrounding soft tissue swelling. IMPRESSION: 1. Acute comminuted nondisplaced fracture of the 5th finger proximal phalanx. 2. Deformity of the 5th metacarpal most likely represent remote trauma. This document has been electronically signed by: Julien Lee MD on 07/12/2025 22:00:13
[2025-07-12 20:11] VITALS: BP 136/66; BP 180/100; PULSE 60; PULSE 66; RESP 16; TEMP 36.6; O2SAT 96; BMI 25.7
--- NOTE | 2025-07-12 20:24 | ECG_ITS ---
Test Reason : fall Blood Pressure : */* mmHG Vent. Rate : 52 BPM Atrial Rate : 52 BPM P-R Int : 138 ms QRS Dur : 84 ms QT Int : 526 ms P-R-T Axes : 25 5 -2 degrees QTcB Int : 489 ms Baseline wander Sinus bradycardia ST & T wave abnormality, consider anterior ischemia Prolonged QT Abnormal ECG When compared with ECG of 22-May-2025 12:47, Premature ventricular complexes are no longer Present Nonspecific T wave abnormality has replaced inverted T waves in Lateral leads QT has shortened Referred By: Generic ED Physician Electronically Signed By: KRISTIN ANGEL MD
--- OUTSIDE RECORDS SUMMARY | 2025-07-12 20:57 | XMS_ITS | Encounter Summary ---
Author Organization [employer] [facility] Address [address] [place] [address] Care Team Providers Care Small Arms Artillery Repairer Name Role Phone Yariel Walton MD Primary Care Provider Encounter Details Date Type Department Care Team (Late st Contact Info) Description 10/19/2024 Lab Requisition [facility] - Main Lab [address] [facility] [place] [address] Yariel Walton MD [address] [place] [address] Chronic kidney disease, unspecified; Essential (primary) hypertension [...] documented as of this encounter Care Teams Small Arms Artillery Repairer Relationship Specialty Start Date End Date Yariel Walton MD [address] [place] [address] PCP - General Family Medicine 10/12/24 documented as of this encounter
--- OUTSIDE RECORDS SUMMARY | 2025-07-12 20:57 | XMS_ITS | Clinical Summary ---
Author Organization [facility] Address [address] [place] [address] [address] KULKARNI TAMANNA BIGGS [phone] Phone Care Team Providers Care Blower And Compressor Assembler Name Role Phone Erika Morris MD [...] Active Problems Problem Noted Date Diagnosed Date Tobacco user 06/30/2025 Overweight 01/06/2025 Increased frequency of urination 01/06/2025 Encounter for screening for diabetes mellitus Hyperkalemia 07/09/2024 Injury of kidney 11/01/2022 Stage [...] Care Team (Late st Contact Info) Description 09/20/2025 3:45 PM EDT Office Visit [facility] [address] [place] [address] Nawaf Guidry MD [address] [facility] [address] [place] [address] Health Maintenance Due Date Last Done Comments [...] topic Insurance Medicaid [place] Medicare Medicare Medicaid [place] Care Teams Blower And Compressor Assembler Relationship Specialty Start Date End Date Erika Morris MD [address] [place] [phone] PCP - General Internal Medicine 11/08/21
--- OUTSIDE RECORDS SUMMARY | 2025-07-12 20:57 | XMS_ITS | Clinical Summary ---
Author Organization [facility] Address [address] [place] [phone] Phone Care Team Providers Care Licensing Director Name Role Phone Erika Morris MD Primary Care Provider + July Acuña DDS Unavailable +1- Allergies No known active allergies Medications levothyroxine (SYNTHROID, LEVOTHROID) 75 MCG tablet Take 1 tablet by mouth every morning. 3 Active FLUoxetine (PROZAC) 40 MG capsule Take 40 mg by mouth every morning. 3 Active acetaminophen (TYLENOL) 500 MG tablet Take 500 mg by mouth every 6 (six) hours as needed. 3 Active aspirin 81 MG EC tablet Take 1 tablet by mouth. Active calcium carbonate (OS-ELENA) 1,250 mg (500 mg elemental) tablet 2 Active lenalidomide (REVLIMID) 10 mg capsule Take 1 capsule by mouth. Active mirtazapine (REMERON) 30 MG tablet Take 30 mg by mouth nightly at bedtime. at bedtime. 3 Active ANTI-DIARRHEAL, LOPERAMIDE, 2 mg tablet TAKE 1 TABLET BY MOUTH FOUR TIMES DAILY NEEDED FOR DIARRHEA (> 2 LOOSE STOOL ) DO NOT EXCEED 4 TABLETS DAILY, HOLD IF CONSTIPATION 3 Active omeprazole (PRILOSEC) 20 MG capsule Take 20 mg by mouth. 3 Active ondansetron (ZOFRAN) 4 MG tablet Take 4 mg by mouth. Active oxyCODONE HCl 10 mg Tab Take 1 tablet by mouth every 12 (twelve) hours. Active GAS RELIEF EXTRA STRENGTH 125 mg Cap TAKE 1 CAPSULE BY MOUTH FOUR TIMES DAILY NEEDED IF MORE THAN 2 LOOSE STOOL . DO NOT EXCEED 4 TABLETS PER DAY. STOP FOR CONSTIPATION. 3 Active cefuroxime (CEFTIN) 500 MG tablet 2 Active chlorhexidine (PERIDEX) 0.12 % solution Use as directed 15 mL in the mouth or throat 2 (two) times a day. 120 mL 3 Active Social History Tobacco Use Types Packs/Day Years Used Date Smoking Tobacco: Never Assessed Education Answer Date Recorded Are you interested in more education? Not on elen e 06/28/2023 Are you concerned about learning? Not on file 06/28/2023 No 06/28/2023 No 06/28/2023 Digital Access Answer Date Recorded No 06/28/2023 No 06/28/2023 Reliable internet access at home? Not on file 06/28/2023 Device with a working camera? Not on file Comments No Sex and Gender Information Value Date Recorded Sex Assigned at Not on file Legal Sex Female 12:19 PM EDT Gender Identity Not on file Sexual Orientation Not on file Last Filed Vital Signs Vital Sign Reading Time Taken Comments Blood Pressure 164/74 09/03/2023 10:27 AM EDT Pulse 49 09/03/2023 10:27 AM EDT Temperature - - Respiratory Rate - - Oxygen Saturation 99% 09/03/2023 10:27 AM EDT Inhaled Oxygen Concentration - - Weight 47.2 kg (104 lb) 09/03/2023 10:27 AM EDT Height 162.6 cm (5' 4 ) 09/03/2023 10:27 AM EDT Body Mass Index 17.85 09/03/2023 10:27 AM EDT Plan of Treatment Health Maintenance Due Date Last Done Comments LIPID PANEL 1944 TSH LEVEL 1944 DEPRESSION SCREENING 1956 SMOKING Hx and SMOKELESS TOBACCO SCREENING 1957 ZOSTER VACCINES (1 of 2) 1994 OSTEOPOROSIS SCREENING INITI AL (ONE-TIME) 2009 RSV VACCINE (1 - 1-dose 75+ series) 2019 PNEUMOCOCCAL VACCINES (50+ years) (2 of 2 - PCV) 01/07/2020 01/07/2019, 06/28/2014 COVID-19 VACCINE (3 - 2023-2 5 season) 2024 08/02/2021, 05/23/2021 Adult Td,Tdap Booster 01/07/2029 01/07/2019 HEPATITIS A VACCINES Aged Out No long er eligible based on patient's age to complete this topic HIB VACCINES Aged Out No longer eligi ble based on patient's age to complete this topic MENINGOCOCCAL VACCINES (ACWY) Aged Out No longer eligible based on patient's age to complete this topic MENINGOCOCCAL VACCINES (B) Aged Out N o longer eligible based on patient's age to complete this topic Medical Devices Not on file Insurance [address] [place] [address] MEDICARE PART A & B . [address] [place] [address] MEDICARE PART A & B MEDICARE PART A & B MEDICARE PART A & B MEDICARE PART A & [place] [address] [address] [place] [address] DENTAL Care Teams Licensing Director Relationship Specialty Start Date End Date Erika Morris MD [address] [place] [address] [address] [place] [phone] PCP - General Internal Medicine 06/28/23 July Acuña DDS [address] [place] [address] [phone] Dentistry 07/01/23 Additional Source Comments The information contained in this document represents components of the legal health record. It is not the complete legal health record.[facility]
--- OUTSIDE RECORDS SUMMARY | 2025-07-12 20:57 | XMS_ITS | Clinical Summary ---
Author Organization [employer] Address [address] [facility] [address] [place] [address] Care Team Providers Care Bottomer Operator Name Role Phone Erika Morris MD Primary Care Provider + Allergies No known active allergies Medications * This document contains information received from the source organization and may not represent a complete record from that organization. Acetaminophen Extra Strength 500 MG tabletIndicatio ns:Tendinitis of left rotator cuff TAKE 1 TABLET BY MOUTH EVERY 6 HOURS NEEDED 90 tablet 3 Active lenalidomide (Revlimid) 10 MG capsule Take 1 capsule by mouth Once per day. Active traZODone (Desyrel) 50 MG tablet Take 12.5mg (0.25 tablet) PO bid 30 tablet 11 4 Active Lidocaine 4 % patch Use 1 patch /d prn on affected area 30 patch 4 Active aspirin (Aspirin Low Dose) 81 MG chewable tablet CHEW 1 TABLET BY MOUTH ONCE DAILY 90 tablet 3 4 Active FLUoxetine (PROzac) 40 MG capsule TAKE 1 CAPSULE BY MOUTH EVERY DAY 30 capsule 11 4 Active Control Gel Formula Dressing (DuoDERM CGF Dressing) misc Apply to affected area 1x/d 30 each 4 Active sodium bicarbonate 650 MG tablet Take 1 tablet (650 mg) by mouth 3 times daily. 270 tablet 3 4 025 Active mirtazapine (Remeron) 30 MG tabletIndicatio ns:Primary insomnia TAKE 1 TABLET BY MOUTH EVERY DAY AT BEDTIME 30 tablet 11 4 Active calcitriol (Rocaltrol) 0.25 MCG capsule Take 1 capsule by mouth Once per day. 5 Active famotidine (Pepcid) 20 MG tablet Take 1 tablet by mouth Once per day. 5 Active calcium carbonate EX (Tums E-X) 750 MG chewable tablet Chew 1 tablet (750 mg) before breakfast and before evening meal. 60 tablet 11 5 026 Active clotrimazole (Lotrimin) 1 % cream APPLY 1 GRAM TOPICALLY TO AFFECTED AREA(S) TWICE DAILY DIRECTED FOR 28 DAYS 30 g 2 5 Active Lidocaine, Anorectal, 5 % cream apply topically to the affected area(s) twice dailyapply topically to the affected area(s) twice daily 28 g 3 5 Active Gas Relief Extra Strength 125 MG chewable tabletIndicatio ns:Gastroesopha geal reflux disease, unspecified whether esophagitis present CHEW 1 TABLET BY MOUTH 4 TIMES A DAY IN THE MORNING, AT NOON, IN THE EVENING, AND AT BEDTIME NEEDED FOR > 2 LOOSE STOOL , DO NOT EXCEED 4 DAYS / STOP FOR CONSTIPATION 90 tablet 3 5 Active Diclofenac Sodium 1 % gel APPLY 1 INCH TO AFFECTED AREA(S) TWICE DAILY IN THE MORNING AND AT BEDTIME NEEDED FOR PAIN 100 g 2 5 Active levothyroxine (Synthroid, Levoxyl) 100 MCG tablet TAKE 1 TABLET BY MOUTH DAILY IN THE MORNING BEFORE BREAKFAST 30 tablet 2 5 Active Saccharomyces boulardii (probiotic) 250 MG capsule Take 1 capsule (250 mg) by mouth 2 times daily. 60 capsule 1 5 Active sulfamethoxazol e-trimethoprim (Bactrim DS) 800-160 MG tablet Take 1 tablet by mouth 2 times daily for 7 days. 14 tablet 5 025 Active Problems Problem Noted Date Diagnosed Date [...] electrolyte imbalance, corrected Pt has underlying microvascular CEMETERY WARDEN compromise. Mental status is significantly improved, will [...] follow-up results. I will send Rx to [facility] pharmacy in [facility] if result comes up on the weekend, otherwise antibiotics can be sent to [facility] pharmacy Saturday through Saturday Continue wearing pull-ups, [...] family is working with insurance to increase [employer] REPA[employer] hours. She will use transport wheelchair for longer transfers. Assessment & Plan (08/13/2024 3:13 PM EDT): Will send PT at home as gait has deteriorated since SNF discharge. Discussed with pt and [employer]TI[employer]OCK[employer] REPAIRER/daughter regarding full precautions. Adenomatous polyp of colon [...] Currently off treatment (Lenalidomide was given at [facility]) for at least 1 month[address] Will discuss with Dr. Ernst Simms at next weeks appointment. We discussed with Pt and family regarding preventing falls due to high risk of fractures. Will order home safety evaluation and prescribe DME as needed. Monitor electrolytes Assessment & Plan (03/28/2023 2:09 PM EDT): seems to be stable on denosumab maintenance ever three months FU with [facility] oncology continue close follow up with oncology [...] prescription next week continue close fu with [employer] nurse pt unable to void today, reminded [...] Encounters Date Type Department Care Team Description 06/10/2025 Results Follow-Up [facility] MEDICINE [address] [place] [phone] Erika Morris MD Culture, Urine, Routine 06/04/2025 12:00 PM EDT Office Visit [address] [address] Erika Morris MD Chronic diarrhea (Primary Dx); Mixed stress and urge urinary incontinence; Hypomagnesemia 06/04/2025 Orders Only [address] [address] Erika Morris MD 06/04/2025 Travel 05/25/[address] [address] Erika Morris MD Nurse Triage 05/22/2025 Orders Only GENERIC EXTERNAL DATA DEPARTMENT Provider, Generic External Data 05/20/2025 Refill [facility] MEDICINE [address] [place] [address] Erika Morris MD 04/11/2025 Refill [facility] MEDICINE [address] [place] [address] Erika Morris MD from Last 3 Months Immunizations Immunization Administration [...] Description 08/10/2025 12:00 PM EDT Office Visit [facility] MEDICINE [address] [place] [phone] Erika Morris MD [address] [place] [address] Health Maintenance Due Date Last Done Comments [...] Procedure Name Priority Date/Time Associated Diagnosis Comments URINALYSIS, COMPLETE, WITH REFLEX TO CULTURE Routine 06/04/2025 3:32 PM EDT Urinary frequency CULTURE, URINE, ROUTINE Routine 06/04/2025 12:00 AM EDT MAGNESIUM Routine 05/22/2025 4:59 PM EDT URINALYSIS, [...] Relevant to Health Maintenance Results * (ABNORMAL) Urinalysis, Complete, with Reflex to Culture (06/04/2025 3:32 PM EDT) Only the most recent of2 resultswithin the time period is included. Color Urine Yellow [facility] Appearance Urine Clear [facility] PH 5.5 5.0 - 9.0 [facility] Glucose Urine UA Negative Negative mg/dL [facility] Urine Blood Negative Negative [facility] Specific Van - Urine 1.015 1.005 - 1.025 [facility] Urine Protein 30 (1+)(A) Neg-Trace mg/dL [facility] Urine Ketones Negative Negative mg/dL [facility] Nitrite Urine Positive(A) Negative [facility] Leukocyte Esterase Urine Moderate (2+)(A) Negative [facility] RBC Urine 0-2 0 - 2 /HPF [facility] Urine WBC >50(A) 0 - 5 /HPF [facility] Urine Squamous Epithelial Cell 6-10 0 - 2 /HPF [facility] Urine Bacteria 4+ None Seen [facility] Hyaline Casts, Urine 0-2 0 - 2 /LPF [facility] Urine 06/04/2025 3:32 PM EDT 06/04/2025 3:58 PM EDT Narrative [facility] - 06/04/2025 4:18 PM EDT Urine, Clean Catch Erika Morris MD LAB URINE ORDERABLES Fin al Result Performing Organization Address [facility]/ZIP Co de Phone Number [facility] [address] [place] [phone] * Culture, Urine, Routine (06/04/2025 12:00 AM EDT) Only the most recent of2 resultswithin the time period is included. Urine Urine specimen obtained by clean catch procedure / Unknown 06/04/2025 06/04/2025 Comment:UACC Narrative [facility] - 06/06/2025 8:12 AM EDT Klebsiella pneumoniae Quant > 100,000 cfu/mL Klebsiella pneumoniae: Ampicillin >=32(R) Klebsiella pneumoniae: Cefazolin 2(S) Klebsiella pneumoniae: Cefepime <=0.12(S) Klebsiella pneumoniae: Ceftriaxone <=0.25(S) Klebsiella pneumoniae: Ciprofloxacin <=0.06(S) Klebsiella pneumoniae: Gentamicin <=1(S) Klebsiella pneumoniae: Nitrofurantoin 64(I) Klebsiella pneumoniae: Trimethoprim/Sulfamethoxazole <=20(S) Specimen Source: Urine clean catch Erika Morris MD LAB MICROBIOLOGY - GENER AL ORDERABLES Final Result Performing Organization Address City/[facility]/ZIP Co de Phone Number [facility] [address] [place] [phone] * Magnesium (05/22/2025 4:59 PM EDT) Only the most recent of2 resultswithin the time period is included. Magnesium 1.7 1.6 - 2.6 mg/dL [facility] 05/22/2025 4:59 PM EDT 05/22/2025 5:03 PM EDT us Generic External Data Provider LAB BLOOD ORDERAB LES Final Result Performing Organization Address [facility] Co de Phone Number [facility] [address] [place] [phone] * High Sensitivity Troponin I (05/22/2025 1:03 PM EDT) [facility] TROPONIN I HIGH SENSITIVITY 7.7 <3.5 - 17.0 ng/L [facility] Comment:The Rogers high sens itivity Troponin-I results should beused in conjunction with other diagnostic information suchas ECG, clinical observations and information, and patientsymptoms to aid in the diagnosis of AR. 05/22/2025 1:03 PM EDT 05/22/2025 1:10 PM EDT Generic External Data Provider LAB BLOOD ORDERAB LES Final Result Performing Organization Address [facility] de Phone Number [facility] [address] [place] [phone] * SARS-CoV-2 RNA, Influenza A/B, and RSV RNA, Ql NAAT (05/22/2025 1:03 PM EDT) [facility] Influenza A PCR NEGATIVE Negative [facility] Influenza B PCR NEGATIVE Negative [facility] Resp Syncy Virus RNA Qual PCR NEGATIVE Negative [facility] SARS COV2 PCR NEGATIVE Negative [facility] Comment:All test results mus t be [...] use by authorized laboratories.Testing performed on the [employer] GeneXpert utilizingreal-time RT-PCR.All SARS CoV2 and positive influenza A/B results arereported to [facility]. 05/22/2025 1:03 PM EDT 05/22/2025 1:10 PM EDT us Generic External Data Provider LAB MICROBIOLOGY - GENERAL ORDERABLES Final Result [facility] [address] [place] [phone] * (ABNORMAL) CBC auto differential (05/22/2025 1:03 PM EDT) White Blood Count 10.6 4.8 - 10.8 X10*3/uL [facility] Red Blood Count 3.96(L) 4.20 - 5.50 X10*6/uL [facility] Hemoglobin 10.9(L) 12.0 - 16.0 g/dl [facility] Hematocrit 32.7(L) 37.0 - 47.0 % [facility] Mean Corpuscular Volume 82.6 80.0 - 98.0 fL [facility] Mean Corpuscular Hemoglobin 27.5 27.0 - 33.0 pg [facility] Mean Corpuscular HGB Conc 33.3 31.0 - 35.0 g/dl [facility] Red Cell Distribution Width 15.6 11.0 - 16.0 % [facility] Platelet Count 175 160 - 400 X10*3/uL [facility] Mean Platelet Volume 11.9 9.4 - 12.3 fL [facility] Neutrophils Percent Auto 64.6 45 - 73 % [facility] Imm Gran Pct Auto 1.3(H) 0.0 - 0.4 % [facility] Lymphocytes Percent Auto 18.2(L) 20 - 40 % [facility] Monocytes Percent Auto 9.2 2 - 11 % [facility] Eosinophils Percent Auto 6.2(H) 0 - 4 % [facility] Basophils Percent Auto 0.5 0 - 2 % [facility] NRBC Pct Auto 0.0 0.0 - 0.2 /100WBC [facility] Neutrophils Absolute Auto 6.8 2.0 - 8.3 x10*3/uL [facility] Imm Gran Abs Auto 0.14(H) 0.00 - 0.03 X10*3/uL [facility] Lymphocytes Absolute Auto 1.9 1.2 - 4.9 X10*3/uL [facility] Monocytes Absolute Auto 1.0 0.1 - 1.2 X10*3/uL [facility] Eosinophils Absolute Auto 0.7(H) 0.0 - 0.4 X10*3/uL [facility] Basophils Absolute Auto 0.1 0.0 - 0.2 X10*3/uL [facility] NRBC Abs Auto 0.000 0.0 - 0.012 X10*3/uL [facility] 05/22/2025 1:03 PM EDT 05/22/2025 1:10 PM EDT us Generic External Data Provider LAB BLOOD ORDERAB LES Final Result [facility] [address] [place] [phone] * (ABNORMAL) Comprehensive Metabolic Panel (05/22/2025 1:03 PM EDT) Sodium 145 135 - 145 mmol/L [facility] Potassium 3.3 3.3 - 5.1 mmol/L [facility] Chloride 113(H) 96 - 108 mmol/L [facility] Carbon Dioxide 21(L) 22 - 29 mmol/L [facility] Anion Gap 14 12 - 20 [facility] Urea Nitrogen (BUN) 23(H) 9 - 16 mg/dL [facility] Creatinine, Serum 1.27 0.5 - 1.4 mg/dL [facility] Creatinine Clr Calc Pharmacy 33.5 [facility] Comment:Provided height and weight: 162.56 cm,68.3 kg.eGFR (calculated from the MDRD study equation) and eCrCl(calculated from the Cockcroft-Gault equation) are based ondifferent parameters and may not yield comparable results.If eCrCl result is absurd, please check patient'sheight/weight. Estimated Glomerular Filt Rate 40 [facility] Comment:Chronic Kidney Disea se: Estimated GFR < 60 mL/min/1.98u9Zittkm Kidney Disease: Estimated GFR < 15 mL/min/1.73m2 Glucose 83 60 - 115 mg/dL [facility] Calcium 7.2(L) 8.4 - 10.2 mg/dL [facility] Bilirubin, Total 0.4 0.0 - 1.0 mg/dL [facility] Aspartate Amino Transferase 22 5 - 31 U/L [facility] Alanine Aminotransferase 33(H) 0 - 31 U/L [facility] Total Protein 7.3 6.5 - 8.0 g/dL [facility] Albumin Level 3.8 3.5 - 5.0 g/dL [facility] Alkaline Phosphatase 147(H) 39 - 117 U/L [facility] 05/22/2025 1:03 PM EDT 05/22/2025 1:10 PM EDT us Generic External Data Provider LAB BLOOD ORDERAB LES Final Result [facility] [address] [place] [phone] * (ABNORMAL) Lipid Panel with Reflex to Direct LDL (04/16/2023 11:12 AM EDT) Cholesterol, Total 187 <200 mg/dL [facility] HDL Cholesterol 66 > OR = 50 mg/dL [facility] Triglycerides 98 <150 mg/dL [facility] LDL Cholesterol 102(H) mg/dL (calc) [facility] Comment: Reference range: <100 Desirable range <100 mg/dL for primary prevention; <70 mg/dL for patients with CHD or diabetic patients with > or = 2 CHD risk factors. LDL-C is now calculated using the Moises calculation, which is a validated novel method providing better accuracy than the Friedewald equation in the estimation of LDL-C. John TAYLOR et al. DOMINIQUE. 2013;310(19): 9172-8577 (http://education.[address].[employer]/faq/YPK753) Chol/HDLC Ratio 2.8 <5.0 (calc) [facility] Non-HDL Cholesterol 121 <130 mg/dL (calc) [facility] Comment: For patients with diabetes plus 1 major ASCVD risk factor, treating to a non-HDL-C goal of <100 mg/dL (LDL-C of <70 mg/dL) is considered a therapeutic option. 04/16/2023 11:1 2 AM EDT 04/16/2023 11:13 AM EDT Narrative [facility] - 04/16/2023 10:44 PM EDT FASTING:YES FASTING: YES Erika Morris MD LAB BLOOD ORDERABLES Fin al Result [facility] [address] [place] [address] [facility] [address] [place] [address] from Last 3 Months or Most Recently Relevant to Health Maintenance Insurance [place] [address] [place] [phone] [facility] Advance Directives Documents on File Type Date Recorded Patient [employer] Expl anation Advance Directives and Living Will 07/09/2024 4:07 PM Hea; Care Proxy Care Teams Bottomer Operator Relationship Specialty Start Date End Date Erika Morris MD [address] [place] [phone] PCP - General Family Medicine 08/07/18 Héctor YUAN 10/19/24
[2025-07-12 21:35] LABS: Hematocrit 32.5 % (37.0-47.0); Hemoglobin 10.7 g/dl (12.0-16.0); Imm Gran Abs Auto 0.09 X10*3/uL (0.00-0.03); Imm Gran Pct Auto 0.9 % (0.0-0.4); Lymphocytes Absolute Auto 3.2 X10*3/uL (1.2-4.9); MANUAL DIFF FLAG NO; Mean Corpuscular HGB Conc 32.9 g/dl (31.0-35.0); Mean Corpuscular Hemoglobin 27.8 pg (27.0-33.0); Mean Corpuscular Volume 84.4 fL (80.0-98.0); NRBC Abs Auto 0.000 X10*3/uL (0.0-0.012); NRBC Pct Auto 0.0 /100WBC (0.0-0.2); Platelet Count 237 X10*3/uL (160-400); Red Blood Count 3.85 X10*6/uL (4.20-5.50); White Blood Count 10.3 X10*3/uL (4.8-10.8)
--- NOTE | 2025-07-12 21:36 | MHC.CM.ED ---
CM met with patient and her son. spectrographer was used, as patient is Estonian speaking only. Pt wants to change her HCP. Pt is A&Ox3. She was able to verbalize a New HCP, her son Marcus Pimentel ([phone]). She requested that her alternated HCP, her granddaughter Latia, be removed. New HCP reviewed, completed, and signed. Copies given. Uploaded into [employer]. Marcus tells CM that his mother is mostly alone and has limited help. Her family works. He is requesting LTC. Pt's medical work up not yet completed. CM card given.
[2025-07-12 21:49] LABS: Alanine Aminotransferase 15 U/L (0-31); Albumin Level 3.8 g/dL (3.5-5.0); Alkaline Phosphatase 122 U/L (39-117); Anion Gap 13 (12-20); Aspartate Amino Transferase 26 U/L (5-31); Blood Urea Nitrogen 27 mg/dL (9-16); Calcium 8.1 mg/dL (8.4-10.2); Carbon Dioxide 21 mmol/L (22-29); Chloride 112 mmol/L (96-108); Creatinine Clr Calc Pharmacy 40.9; Estimated Glomerular Filt Rate 51; Potassium 3.8 mmol/L (3.3-5.1); Sodium 142 mmol/L (135-145); Total Protein 7.5 g/dL (6.5-8.0)
[2025-07-12 21:56] LABS: Troponin-I High Sensitivity 11.5 ng/L (<3.5-17.0)
[2025-07-13 00:53] VITALS: BP 187/83; PULSE 50; RESP 16; TEMP 36.4; O2SAT 97
[2025-07-13 01:44] LABS: Appearance Urine Clear; Glucose Urine UA Negative (Negative); PH 6.0 (5.0-9.0); Specific Gravity - Urine 1.015 (1.005-1.025); UMIC TRIGGER UACC YES
--- NOTE | 2025-07-13 01:54 | ED.FALL ---
HPI - Fall General Chief Complaint: Fall Stated Complaint: FALL, BACK PAIN, +CCOLLAR Time Seen by Provider: 07/12/25 20:57 Source: patient Mode of arrival: ambulatory Limitations: no limitations History of Present Illness ED Provider: Dr. Whitney Shi HPI Narrative: Patient comes in the emergency room complaining of a fall. According to the patient, she was trying to go outside into the porch and tripped with her walker. Patient fell on her hand, complaining of finger pain and hand pain on the lateral aspect of the left hand. Patient states that when she fell she landed on her face and had a bloody nose earlier today. At this time, patient complaining of localized bridge nose pain and hand pain. Denies losing consciousness, denies being on blood thinner Related Data Home Medications ?Medication ?Instructions ?Recorded ?Confirmed levothyroxine 75 mcg tablet 75 mcg PO DAILY 10/27/20 01/12/25 aspirin 81 mg chewable tablet 81 mg PO DAILY 12/16/20 01/12/25 mirtazapine 30 mg tablet 30 mg PO BEDTIME 12/16/20 01/12/25 fluoxetine 40 mg capsule 1 cap PO DAILY 05/12/22 01/12/25 loperamide 2 mg tablet 2 mg PO Q4H PRN Loose Stool 02/25/24 01/12/25 trazodone 50 mg tablet 12.5 mg PO BID 09/18/24 01/12/25 lidocaine 5 % topical cream 1 appl topical BID 11/24/24 01/12/25 Previous Rx's ?Medication ?Instructions ?Recorded calcium carbonate (Oyster Shell 500 mg PO TID 30 days #90 tabs 05/13/22 Calcium 500) ondansetron 4 mg disintegrating 4 mg PO Q8H PRN nausea and 09/02/24 tablet vomiting #5 tabs magnesium oxide 250 mg PO BID #60 tabs 09/24/24 sodium bicarbonate 650 mg tablet 650 mg PO TID #90 tabs 09/24/24 calcitriol 0.25 mcg capsule 0.25 mcg PO DAILY #7 caps 11/27/24 famotidine 20 mg tablet (Pepcid) 20 mg PO DAILY #30 tabs 11/27/24 lenalidomide 10 mg capsule 10 mg PO DAILY #14 caps 05/11/25 (Revlimid) magnesium 250 mg tablet 250 mg PO DAILY #7 tabs 05/22/25 cefuroxime axetil 250 mg tablet 250 mg PO BID 7 days #14 tabs 05/30/25 lenalidomide 10 mg capsule 10 mg PO DAILY #14 caps 06/01/25 (Revlimid) lenalidomide 10 mg capsule 10 mg PO DAILY #14 caps 07/01/25 (Revlimid) amoxicillin 500 mg-potassium 1 tab PO BID #10 tabs 07/13/25 clavulanate 125 mg tablet (Augmentin) ibuprofen 600 mg tablet 600 mg PO Q8H PRN fever or pain 07/13/25 #20 tabs Allergies Allergy/AdvReac Type Severity Reaction Status Date / Time No Known Allergies (No Known Allergy Verified 07/12/25 20:22 Allergies*) Review of Systems Review of Systems: Constitutional : No Weight loss, No Fever, No Chills, No Night Sweats, No Fatigue, No Malaise ENT/Mouth complaining of pain in the nose: No Hearing loss, No Ear Pain, No Nasal Congestion, No Sinus Pain, No Hoarseness, No sore throat, No Rhinorrhea, No Swallowing Difficulty Eyes: No Eye Pain, No Swelling, No Redness, No Foreign Body, No Discharge, No Vision Changes Cardiovascular : No Chest Pain, No SOB, No Dyspnea on Exertion, No Orthopnea, No Edema, No Palpitations Respiratory : No Cough, No Sputum, No Wheezing, No Smoke Exposure, No Dyspnea Gastrointestinal : No Nausea, No Vomiting, No Diarrhea, No Constipation, No abdominal Pain, No Hematochezia, No Melena Genitourinary : no irregular bleeding, No Dysuria, No Urinary Frequency, No Hematuria, No Urinary Incontinence, No Urgency, No Flank Pain, No Urinary Flow Changes, No Hesitancy Musculoskeletal : Complaining of left 5th finger pain No Myalgias, No Joint Swelling Skin : No Skin Lesions, No rash Neuro : No Weakness, No Numbness, No Paresthesias, No Loss of Consciousness, No Dizziness, No Headache Psych : No Anxiety/Panic, No Depression, No SI/HI/AH/VH, No Social Issues, Heme/Lymph: No Bruising, No Bleeding,No Lymphadenopathy Endocrine : No Polyuria, No Polydipsia, No Temperature Intolerance PMFSH Past Medical History Medical History Multiple myeloma Chronic diarrhea Tubulovillous adenoma Depression H/O gastroesophageal reflux (GERD) Hx of multiple myeloma Hypothyroidism Surgical History H/O tooth extraction History of bone marrow biopsy History of cholecystectomy Family History Family History Daughter Diabetes Thyroid cancer Social History Social History Household Members: Family Household Members Other:: adult son Housing: Apartment Are you a primary career professional to a significant other at home: No Do you presently have visiting nurse or other home services: Yes Alcohol intake: never Comment: 1:[address] until 23:00 due to staffing constraints Patient Tobacco Use Status: Former Tobacco user Tobacco use type: Cigarette Years Smoked: 20 e-Cigarette/Vaping Use: Never Used Second Hand Smoke Exposure: No Substance Use Type: Marijuana Advance Directives: Yes Advance Directives on File: Yes Advance Directives Date on File: 07/12/25 Do you have a plan to hurt others: No Plan service: No Current occupational status: unemployed Physical Exam Exam: Exam: Appearance: Alert. Oriented X3. No acute distress. Well-appearing Eyes: Pupils equal, round and reactive to light. ENT: Pharynx normal. Nasal bridge bruised and swollen Neck: Normal inspection. Neck supple. No lymph nodes noted. No crepitus CVS: Normal heart rate and rhythm. Pulses normal. Normal S1 and S2 Respiratory: No respiratory distress. Breath sounds normal. No Wheezing. No rales Abdomen: Soft and nontender. No rigidity. No distention. Skin: Skin warm and dry. Normal skin color. Normal skin turgor. Pain to palpation over the 5th digit of the left hand Extremities: No lower extremity edema. No Lacerations. No Rash Neuro: Oriented X 3. No motor deficit. No sensory deficit. Moving all extremities. No slurred speech. CN 2 through 12 grossly intact Psych: calm, cooperative, normal affect Vital Signs: Vital Signs: Last Vital Signs Temp 97.6 F 07/13/25 00:53 Pulse 50 07/13/25 00:53 Resp 16 07/13/25 00:53 BP 187/83 H 07/13/25 00:53 Pulse Ox 97 07/13/25 00:53 O2 Del Method Room Air 07/13/25 00:53 BMI result Body Mass Index 25.7 Medications Administered Discontinued Medications Generic Name Dose Route Start Last Admin Trade Name Elodia PRN Reason Stop Dose Admin Acetaminophen 975 mg 07/12/25 21:47 07/12/25 21:58 Acetaminophen 325 Mg Tablet PO 07/12/25 21:48 975 mg ONCE ONE Administration Amoxicillin/Clavulanate Potassium 250 mg 07/13/25 01:54 07/13/25 02:47 Amoxicillin/Potassium Clav 250 Mg Tablet PO 07/13/25 01:55 Not Given ONCE ONE Procedures Orthopedic Splinting/Casting Injury #1: Side: left Upper Extremity Injury Location: hand Upper Extremity Immobilizer: volar splint Medical Decision Making Medical Decision Making [facility] Narrative: X-rays of the hand show a 5th metacarpal fracture, patient was put on a splint, instructed to follow-up with orthopedics CT scan of the face cervical spine and head did not show any acute abnormality My interpretation of labs: No significant abnormality in patient's hematology and chemistry Differential Diagnosis Differential Diagnoses: The differential diagnosis associated with the presentation includes (Intracranial bleed, contusion, concussion, hand fracture, wrist fracture) Admission/Observation Consideration of admission/observation: Escalation of care including admission/observation considered (Given patient's age and mechanism of injury, observation was considered) Lab Data [facility] Lab Attestation statement: I reviewed the patient's lab results. 07/12/25 21:28 07/12/25 21:28 Labs: Lab Results 07/12/25 07/13/25 Range/Units 21:28 01:35 WBC 10.3 (4.8-10.8) X10*3/uL RBC 3.85 L (4.20-5.50) X10*6/uL Hgb 10.7 L (12.0-16.0) g/dl Hct 32.5 L (37.0-47.0) % MCV 84.4 (80.0-98.0) fL MCH 27.8 (27.0-33.0) pg MCHC 32.9 (31.0-35.0) g/dl RDW 15.2 (11.0-16.0) % Plt Count 237 D (160-400) X10*3/uL MPV 11.4 (9.4-12.3) fL Immature Gran % (Auto) 0.9 H (0.0-0.4) % Neut % (Auto) 58.7 (45-73) % Lymph % (Auto) 31.1 (20-40) % [place] % (Auto) 6.4 (2-11) % Eos % (Auto) 2.1 (0-4) % Baso % (Auto) 0.8 (0-2) % Lymph # (Auto) 3.2 (1.2-4.9) X10*3/uL [place] # (Auto) 0.7 (0.1-1.2) X10*3/uL Eos # (Auto) 0.2 (0.0-0.4) X10*3/uL Baso # (Auto) 0.1 (0.0-0.2) X10*3/uL Abs Immat Gran (auto) 0.09 H (0.00-0.03) X10*3/uL Absolute Neuts (auto) 6.0 (2.0-8.3) x10*3/uL Absolute Nucleated RBC 0.000 (0.0-0.012) X10*3/uL Nucleated RBC % (auto) 0.0 (0.0-0.2) /100WBC Sodium 142 (135-145) mmol/L Potassium 3.8 (3.3-5.1) mmol/L Chloride 112 H (96-108) mmol/L Carbon Dioxide 21 L (22-29) mmol/L Anion Gap 13 (12-20) BUN 27 H (9-16) mg/dL Creatinine 1.04 (0.5-1.4) mg/dL Estim Creat Clear Calc 40.9 Estimated GFR 51 Random Glucose 85 (60-115) mg/dL Calcium 8.1 L D (8.4-10.2) mg/dL Total Bilirubin 0.2 (0.0-1.0) mg/dL AST 26 (5-31) U/L ALT 15 (0-31) U/L Alkaline Phosphatase 122 H (39-117) U/L Troponin I High Sens 11.5 (<3.5-17.0) ng/L Total Protein 7.5 (6.5-8.0) g/dL Albumin 3.8 (3.5-5.0) g/dL Urine Color Yellow Urine Appearance Clear Urine pH 6.0 (5.0-9.0) Ur Specific [place] 1.015 (1.005-1.025) Urine Protein 100 (2+) H (Neg-Trace) mg/dL Urine Glucose (UA) Negative (Negative) mg/dL Urine Ketones Negative (Negative) mg/dL Urine Blood Negative (Negative) Urine Nitrite Negative (Negative) Ur Leukocyte Esterase Trace H (Negative) Urine RBC 0-2 (0-2) /HPF Urine WBC 0-5 (0-5) /HPF Ur Squamous Epith Cells 3-5 (0-2) /HPF Urine Bacteria 1+ (None Seen) Hyaline Casts 0-2 (0-2) /LPF Independent Interpretation I performed an independent interpretation of an: Plain X-Ray Radiology Impression Discussion of test interpretation with radiology: I have reviewed the radiologist's reading. Radiologist Impression: Acute comminuted fracture of the nasal bone No acute findings. . No acute intracranial findings. Critical Care Time Critical Care Time Critical Care Time: Yes Total Critical Care Time: 45 Attestation: I have personally provided critical care time. Time includes review of lab data, radiology results, discussion with consultants, and monitoring for potential decompensation. Intervention performed as documented. Discharge Plan Discharge Clinical Impression: Fall, Closed fracture nasal bone, Closed fracture of fifth metacarpal bone Patient Disposition: Home, Self-Care Instructions: Nasal Fracture (ED), Hand Fracture (ED), Fall Prevention for Older Adults (ED) Additional Instructions: Please follow-up with your primary care physician tomorrow. If you have any worsening or new symptoms, please return to the emergency room or call 911 Prescriptions: New amoxicillin-pot clavulanate [Augmentin] 500-125 mg tablet 1 tab PO BID Qty: 10 0RF ibuprofen 600 mg tablet 600 mg PO Q8H PRN (Reason: fever or pain) Qty: 20 0RF No Action levothyroxine 75 mcg tablet 75 mcg PO DAILY lenalidomide [Revlimid] 10 mg Capsule 10 mg PO DAILY Qty: 14 0RF Rx Instructions: Swallow whole with glass of water; do not open, crush, chew , break, or dissolve. Take 1 cap daily for 2 week and then stop for 2 weeks. lenalidomide [Revlimid] 10 mg Capsule 10 mg PO DAILY Qty: 14 0RF Rx Instructions: swallow whole with glass of water; do not open, crush, chew , break, or dissolve. [id number]. lenalidomide [Revlimid] 10 mg Capsule 10 mg PO DAILY Qty: 14 0RF Rx Instructions: swallow whole with glass of water; do not open, crush, chew , break, or dissolve. [id number] mirtazapine 30 mg tablet 30 mg PO BEDTIME aspirin 81 mg tablet,chewable 81 mg PO DAILY fluoxetine 40 mg capsule 1 cap PO DAILY calcium carbonate [Oyster Shell Calcium 500] 500 mg calcium (1,250 mg) Tablet 500 mg PO TID 30 Days Qty: 90 0RF ondansetron 4 mg tablet,disintegrating 4 mg PO Q8H PRN (Reason: nausea and vomiting) Qty: 5 0RF trazodone 50 mg tablet 12.5 mg PO BID sodium bicarbonate 650 mg Tablet 650 mg PO TID Qty: 90 0RF magnesium oxide 250 mg magnesium tablet 250 mg PO BID Qty: 60 0RF lidocaine 5 % cream 1 appl topical BID calcitriol 0.25 mcg Capsule 0.25 mcg PO DAILY Qty: 7 0RF famotidine [Pepcid] 20 mg tablet 20 mg PO DAILY Qty: 30 0RF magnesium 250 mg tablet 250 mg PO DAILY Qty: 7 0RF cefuroxime axetil 250 mg tablet 250 mg PO BID 7 Days Qty: 14 0RF loperamide 2 mg Tablet 2 mg PO Q4H PRN (Reason: Loose Stool) Rx Instructions: administer after each loose stool until symptoms controlled; do not exceed 8 mg per 24 hrs Referrals: Cas Hawthorne PA [Physician [employer], Hand Surgery] Print Language: Libyan
[2025-07-13 03:12] VITALS: BP 182/84; PULSE 49; RESP 16; TEMP 36.1; O2SAT 97
--- NOTE | 2025-07-13 03:12 | PC.NURSE ---
Left hand splint applied by Dr. Shi. Pt tolerated well.
[2025-07-13 03:15] VITALS: BP 182/84; PULSE 49; RESP 16; TEMP 36.1; O2SAT 97
== END 2025-07-13 03:15 | disposition home or self-care (01) ==
PROVIDERS: Emergency Provider Emergency Medicine; PCP Internal Medicine
DX: S02.2XXA Fracture of nasal bones, initial encounter for closed fracture (principal); S62.307A Unspecified fracture of fifth metacarpal bone, left hand, initial encounter for closed fracture; J34.89 Other specified disorders of nose and nasal sinuses; M79.643 Pain in unspecified hand; M79.642 Pain in left hand; R04.0 Epistaxis; W01.0XXA Fall on same level from slipping, tripping and stumbling without subsequent striking against object, initial encounter; Y93.89 Activity, other specified; Y92.89 Other specified places as the place of occurrence of the external cause; Y99.9 Unspecified external cause status
CPT/HCPCS: 29125; 36415; 70450; 70486; 72125; 73140; 80053; 81001; 84484; 85025; 93005; 99284; 99285

== ENCOUNTER → 2025-07-12 20:24 | Outpatient (BNV) | payer MEDICARE, MEDICAID, SELFPAY | PROVIDERS: Emergency Provider Emergency Medicine; PCP Internal Medicine; Visit Provider Internal Medicine Cardiovascular Disease | DX: R00.1 Bradycardia, unspecified (principal) | CPT/HCPCS: 93010 ==

== ENCOUNTER → 2025-07-12 20:40 | Outpatient (BNV) | payer MEDICARE, MEDICAID, SELFPAY | PROVIDERS: Emergency Provider Emergency Medicine; PCP Internal Medicine; Visit Provider Student in an Organized Health Care Education/Training Program | DX: S62.647A Nondisplaced fracture of proximal phalanx of left little finger, initial encounter for closed fracture (principal) | CPT/HCPCS: 73140 ==

== ENCOUNTER 2025-07-16 10:02 | Outpatient (REF) | payer MEDICARE, MEDICAID, SELFPAY ==
--- NOTE | ~2025-07-16 | XR_ITS ---
EXAMINATION: XR RIBS, RIGHT CLINICAL INFORMATION: Rib pain on right side COMPARISON: March 10, 2025 TECHNIQUE: PA chest and 3 views of the right ribs were obtained. FINDINGS: Lungs are clear. Heart size is enlarged. There is cortical step-off involving anterolateral right ninth and 10th ribs. XR/XR ribs RT min 3V w CXR1V IMPRESSION: Anterior right ninth and 10th rib fractures Cardiomegaly Electronically signed by: Roberto Barry MD 07/16/2025 10:44 AM EDT
--- OUTSIDE RECORDS SUMMARY | 2025-07-16 10:08 | XMS_ITS | Clinical Summary ---
Author Organization [employer] Address [address] [facility] [place] [address] Care Team Providers Care Blood Bank Attendant Name Role Phone Erika Morris MD Primary Care Provider + Allergies No known active allergies Medications * This document contains information received from the source organization and may not represent a complete record from that organization. Acetaminophen Extra Strength 500 MG tabletIndication s:Tendinitis of left rotator cuff TAKE 1 TABLET [...] 24 025 Active mirtazapine (Remeron) 30 MG tabletIndication s:Primary insomnia TAKE 1 TABLET BY MOUTH EVERY [...] Gas Relief Extra Strength 125 MG chewable tabletIndication s:Gastroesophage al reflux disease, unspecified whether esophagitis present CHEW [...] daily. 60 capsule 1 06/04/20 25 Active acetaminophen (Tylenol Extra Strength) 500 MG tabletIndication s:Closed nondisplaced fracture of proximal phalanx of left little finger, initial encounter Take 1 tablet (500 mg) by mouth every 6 (six) hours if needed for mild pain or moderate pain for up to 10 days. 30 tablet 07/16/20 25 025 Active sulfamethoxazole -trimethoprim (Bactrim DS) 800-160 MG tablet Take 1 tablet by mouth 2 times daily for 7 days. 14 tablet 06/10/20 25 025 Active Problems Problem Noted Date Diagnosed [...] electrolyte imbalance, corrected Pt has underlying microvascular MRI TECH compromise. Mental status is significantly improved, will [...] follow-up results. I will send Rx to [facility] pharmacy in [facility] if result comes up on the weekend, otherwise antibiotics can be sent to [facility] pharmacy Saturday through Saturday Continue wearing [...] family is working with insurance to increase LUBE ATTENDANT hours. She will use transport wheelchair for longer transfers. Assessment & Plan (08/13/2024 3:13 PM EDT): Will send PT at home as gait has deteriorated since SNF discharge. Discussed with pt and LUBE ATTENDANT/daughter regarding full precautions. Adenomatous polyp of colon [...] Other Recurrent major depression in partial remission (CMS/[facility]) Patient ready to address current needs Yes Strengths include motivation to seek behavioral health service PLAN: 1. Follow up with [facility]: Not recommended for follow-up 2. Patient goal [...] Currently off treatment (Lenalidomide was given at [facility]) for at least 1 month[address] Will discuss with Dr. Ernst Simms at next weeks appointment. We discussed with Pt and family regarding preventing falls due to high risk of fractures. Will order home safety evaluation and prescribe DME as needed. Monitor electrolytes Assessment & Plan (03/28/2023 2:09 PM EDT): seems to be stable on denosumab maintenance ever three months FU with [facility] oncology continue close follow up with oncology [...] prescription next week continue close fu with [employer] nurse pt unable to void today, reminded [...] Encounters Date Type Department Care Team Description 07/16/2025 9:00 AM EDT Office Visit [facility] [address], [place] [phone] Rib pain on right side (Primary Dx); Closed nondisplaced fracture of proximal phalanx of left little finger, initial encounter 07/16/2025 Travel 07/15/2025 Results Follow-Up [facility] [address] [place] [address] Sinus Facial Bones w/o Contrast 07/15/2025 Telephone [facility] [address] [place] [address] Murray Augustine MA chart prep 07/13/2025 Telephone [facility] [address] [place] [address] Erika Morris MD ER Follow-up 07/13/2025 Orders Only GENERIC EXTERNAL DATA DEPARTMENT Provider, Generic External Data 07/12/2025 Orders Only [facility] External Provider, [facility] 06/10/2025 Results Follow-Up [facility] [address] [place] [address] Erika Morris MD Culture, Urine, Routine 06/04/2025 12:00 PM EDT Office Visit [address] [address] Erika Morris MD Chronic diarrhea (Primary Dx); Mixed stress and urge urinary incontinence; Hypomagnesemia 06/04/2025 Orders Only [address] [address] Erika Morris MD 06/04/2025 Travel 05/25/[address] [address] Erika Morris MD Nurse Triage 05/22/2025 Orders Only GENERIC EXTERNAL DATA DEPARTMENT Provider, Generic External Data 05/20/[address] [address] Erika Morris MD from Last 3 Months [...] housing situation today? I have jerrica piedra 06/04/[address] you [...] Sign Reading Time Taken Comments Blood Pressure 162/89 07/16/2025 9:24 AM EDT Pulse 68 07/16/2025 9:24 AM EDT Temperature 36.3 C (97.3 F) 07/16/2025 9:24 AM EDT Respiratory Rate 18 07/16/2025 9:24 AM EDT Oxygen Saturation 99% 07/16/2025 9:24 AM EDT Inhaled Oxygen Concentration - - Weight 68.5 kg (151 lb) 06/04/2025 11:50 AM EDT Height 162.3 cm (5' 3.88 ) 06/04/2025 11:50 AM E DT Body Mass Index 26.02 06/04/2025 11:50 AM EDT Plan of Treatment Upcoming Encounters Date Type Department Care Team (Late st Contact Info) Description 08/10/2025 12:00 PM EDT Office Visit [facility] [address] [place] [address] Erika Morris MD [address] [place] [address] Health Maintenance Due Date Last Done Comments [...] 06/04/2026 06/04/2025 Depression Screening 06/04/2026 06/04/2025, 06/04/20 25 SDOH Screening 06/04/2026 06/04/2025 Tobacco Screening 06/04/2026 [...] URINALYSIS, COMPLETE, WITH REFLEX TO CULTURE Routine 07/13/2025 1:[address] SINUS FACIAL BONES WO CONTRAST Routine 07/13/2025 12:[address] CERVICAL SPINE WO CONTRAST Routine 07/13/2025 12:[address] HEAD WO CONTRAST Routine 07/13/2025 1 2:14 AM EDT XR FINGERS 2+ VIEWS LEFT Routine 07/12/2025 10:00 PM EDT URINALYSIS, COMPLETE, WITH REFLEX TO [...] (ABNORMAL) Urinalysis, Complete, with Reflex to Culture (07/13/2025 1:35 AM EDT) Only the most recent of3 resultswithin the time period is included. Color Urine Yellow [facility] Appearance Urine Clear [facility] PH 6.0 5.0 - 9.0 [facility] Glucose Urine UA Negative Negative mg/dL [facility] Urine Blood Negative Negative [facility] Specific [place] - Urine 1.015 1.005 - 1.025 [facility] Urine Protein 100 (2+)(A) Neg-Trace mg/dL [facility] Urine Ketones Negative Negative mg/dL [facility] Nitrite Urine Negative Negative [facility] Leukocyte Esterase Urine Trace(A) Negative [facility] RBC Urine 0-2 0 - 2 /HPF [facility] Urine WBC 0-5 0 - 5 /HPF [facility] Urine Squamous Epithelial Cell 3-5 0 - 2 /HPF [facility] Urine Bacteria 1+ None Seen [facility] Hyaline Casts, Urine 0-2 0 - 2 /LPF [facility] 07/13/2025 1:35 AM EDT 07/13/2025 1:38 AM EDT Narrative [facility] - 07/13/2025 1:50 AM EDT Urine, Clean Catch us Generic External Data Provider LAB URINE ORDERAB LES Final Result [facility] [address] [place] [phone] * CT Sinus Facial Bones w/o Contrast (07/13/2025 12:36 AM EDT) Anatomical Region Laterality Modality Computed Tomogra phy 07/13/2025 12:3 6 AM EDT Narrative 07/13/2025 12:40 AM EDT [address] [address] [address] Scan Report Signed with Addenda Patient: Altagracia Moe MR#: [id number] : 1945 Acct:[id number] Age/Sex: 79 / F ADM Date: 07/12/25 Loc: HO.ED Attending Dr: Ordering Physician: Whitney Shi MD Date of Service: 07/12/25 Procedure(s): CT facial bones wo IV con Accession Number(s): [id number] cc: Erkia Morris MD; Whitney Shi MD Report Number: [id number]: Total DLP = 349.00 mGy-cm ADDENDUM This document has been electronically signed by: Yousuf Ferguson MD on 07/13/2025 00:36:40 ADDENDUM: This report was discussed with Yuridia Olson on Jul 13, 2025 00:39:00 EDT. This document has been electronically signed by: Johanne Fox on 07/13/2025 00:41:39 Addendum Dictated By: Yousuf Ferguson MD Addendum Signed By: <Electronically signed by Yousuf Ferguson MD in OV> 07/13/2541 Addendum Cosigned By: DD/ TD/TT: 07/13/25 CLINICAL HISTORY: fall, face planted CT maxillofacial without contrast Comparison: CT/SR - CT HEAD WITHOUT IV CONTRAST - 08/17/24 11:46 EDT Findings: Acute comminuted fracture of the nasal bone, not present on 08/17/[address] There is associated soft tissue swelling. Temporomandibular joints are intact. Paranasal sinuses and mastoid air cells clear. Unremarkable orbital contents. Visualized intracranial contents are within normal limits. No foreign bodies. IMPRESSION: Acute comminuted fracture of the nasal bone This document has been electronically signed by: Yousuf Ferguson MD on 07/13/2025 00:36:40 Dictated By: Yousuf Ferguson MD Signed By: <Electronically signed by Yousuf Ferguson MD in OV> 07/13/258 DD/ TD/TT: 07/13/2535 Nonprofit Fundraiser: Procedure Note Donotuseinterpreter, Image - 07/13/[address] [place] [address] [address] Scan Report Signed with Addenda Patient: Ajit Moe#: [id number] : 4Acct:[id number] Age/Sex: 79 / FADM Date: 07/12/25 Loc: HO.ED Attending Dr: Ordering Physician: Whitney Shi MD Date of Service: 07/12/25 Procedure(s): CT facial bones wo IV con Accession Number(s): [id number] cc: Erika Morris MD; Whitney Shi MD Report Number: [id number]: Total DLP = 349.00 mGy-cm ADDENDUM This document has been electronically signed by: Yousuf Ferguson MD on 07/13/2025 00:36:40 ADDENDUM: This report was discussed with Yuridia Olson on Jul 13, 2025 00:39:00 EDT. This document has been electronically signed by: Johanne Fox on 07/13/2025 00:41:39 Addendum Dictated By: Yousuf Ferguson MD Addendum Signed By: <Electronically signed by Yousuf Ferguson MD in OV> 07/13/2541 Addendum Cosigned By: DD/ TD/TT: 07/13/25 CLINICAL HISTORY: fall, face planted CT maxillofacial without contrast Comparison: CT/SR - CT HEAD WITHOUT IV CONTRAST - 08/17/24 11:46 EDT Findings: Acute comminuted fracture of the nasal bone, not present on 08/17/[address] There is associated soft tissue swelling. Temporomandibular joints are intact. Paranasal sinuses and mastoid air cells clear. Unremarkable orbital contents. Visualized intracranial contents are within normal limits. No foreign bodies. IMPRESSION: Acute comminuted fracture of the nasal bone This document has been electronically signed by: Yousuf Ferguson MD on 07/13/2025 00:36:40 Dictated By: Yousuf Ferguson MD Signed By: <Electronically signed by Yousuf Ferguson MD in OV> 07/13/2537 DD/ TD/TT: 07/13/2535 Nonprofit Fundraiser: [facility] External Provider IMG CT PROCEDURES Edited Result - Final * CT Cervical Spine w/o Contrast (07/13/2025 12:24 AM EDT) Anatomical Region Laterality Modality Spine, C-spine Computed Tomogra phy 07/13/2025 12:2 4 AM EDT Narrative 07/13/2025 12:26 AM EDT [place] [address] CT Scan Report Signed Patient: Altagracia Moe MR#: [id number] : 1945 Acct:[id number] Age/Sex: 79 / F ADM Date: 07/12/25 Loc: HO.ED Attending Dr: Ordering Physician: Whitney Shi MD Date of Service: 07/12/25 Procedure(s): CT cervical spine wo IV con Accession Number(s): [id number] cc: Erika Morris MD; Whitney Shi MD Report Number: [id number]: Total DLP = 342.00 mGy-cm CLINICAL HISTORY: fall, poor historian CT cervical spine without contrast Comparison: None provided Findings: The cervical spine is kyphotic with mild multilevel spondylosis, most pronounced at C4-5. No acute fractures or dislocations. No acute findings on limited view of the intracranial contents. Soft tissues of the neck are normal. No consolidation or effusion at the lung apices. Healed fractures of the posterior right 2nd and 3rd ribs. IMPRESSION: No acute findings. This document has been electronically signed by: Yousuf Ferguson MD on 07/13/2025 00:24:58 Dictated By: Yousuf Ferguson MD Signed By: <Electronically signed by Yousuf Ferguson MD in OV> 07/13/2524 DD/ TD/TT: 07/13/2523 Nonprofit Fundraiser: Procedure Note Donotuseinterpreter, Image - 07/13/[address] [place] [address] [address] Scan Report Signed Patient: Ajit Moe#: [id number] : 1945cct:[id number] Age/Sex: 79 / FADM Date: 07/12/25 Loc: HO.ED Attending Dr: Ordering Physician: Whitney Shi MD Date of Service: 07/12/25 Procedure(s): CT cervical spine wo IV con Accession Number(s): [id number] cc: Erika Morris MD; Whitney Shi MD Report Number: [id number]: Total DLP = 342.00 mGy-cm CLINICAL HISTORY: fall, poor historian CT cervical spine without contrast Comparison: None provided Findings: The cervical spine is kyphotic with mild multilevel spondylosis, most pronounced at C4-5. No acute fractures or dislocations. No acute findings on limited view of the intracranial contents. Soft tissues of the neck are normal. No consolidation or effusion at the lung apices. Healed fractures of the posterior right 2nd and 3rd ribs. IMPRESSION: No acute findings. This document has been electronically signed by: Yousuf Fegruson MD on 07/13/2025 00:24:58 Dictated By: Yousuf Ferguson MD Signed By: <Electronically signed by Yousuf eFrguson MD in OV> 07/13/2524 DD/ TD/TT: 07/13/2523 Nonprofit Fundraiser: [facility] External Provider IMG CT PROCEDURES Final Result * CT Head w/o Contrast (07/13/2025 12:14 AM EDT) Anatomical Region Laterality Modality Head, Neck Computed Tomogra phy 07/13/2025 12:1 4 AM EDT Narrative 07/13/2025 12:17 AM EDT [address] [address] [address] Scan Report Signed Patient: Altagracia Moe MR#: [id number] : 1945 Acct:[id number] Age/Sex: 79 / F ADM Date: 07/12/25 Loc: HO.ED Attending Dr: Ordering Physician: Whitney Shi MD Date of Service: 07/12/25 Procedure(s): CT head/brain wo IV con Accession Number(s): [id number] cc: Erika Morris MD; Whitney Shi MD Report Number: [id number]: Total DLP = 568.00 mGy-cm CLINICAL HISTORY: fall, poor historian CT head without contrast Comparison: CT/SR - CT HEAD WITHOUT IV CONTRAST - 08/17/24 11:46 EDT Findings: No intra-axial mass, midline shift, hydrocephalus, or acute hemorrhage. Age related atrophy and white matter disease. The visualized paranasal sinuses and mastoid air cells are normal. The orbits are within normal limits. There is no acute fracture. IMPRESSION: 1. No acute intracranial findings. This document has been electronically signed by: Yousuf Ferguson MD on 07/13/2025 00:14:31 Dictated By: Yousuf Ferguson MD Signed By: <Electronically signed by Yousuf Ferguson MD in OV> 07/13/2514 DD/ TD/TT: 07/13/2513 Nonprofit Fundraiser: Procedure Note Donotuseinterpreter, Image - 07/13/[address] [address] [address] Scan Report Signed Patient: Altagracia MoeMR#: [id number] : 1945cct:[id number] Age/Sex: 79 / FADM Date: 07/12/25 Loc: HO.ED Attending Dr: Ordering Physician: Whitney Shi MD Date of Service: 07/12/25 Procedure(s): CT head/brain wo IV con Accession Number(s): [id number] cc: Erika Morris MD; Whitney Shi MD Report Number: [id number]: Total DLP = 568.00 mGy-cm CLINICAL HISTORY: fall, poor historian CT head without contrast Comparison: CT/SR - CT HEAD WITHOUT IV CONTRAST - 08/17/24 11:46 EDT Findings: No intra-axial mass, midline shift, hydrocephalus, or acute hemorrhage. Age related atrophy and white matter disease. The visualized paranasal sinuses and mastoid air cells are normal. The orbits are within normal limits. There is no acute fracture. IMPRESSION: 1. No acute intracranial findings. This document has been electronically signed by: Yousuf Ferguson MD on 07/13/2025 00:14:31 Dictated By: Yousuf Ferguson MD Signed By: <Electronically signed by Yousuf Ferguson MD in OV> 07/13/2514 DD/ TD/TT: 07/13/2513 Nonprofit Fundraiser: [facility] External Provider IMG CT PROCEDURES Final Result * XR Fingers 2+ Views Left (07/12/2025 10:00 PM EDT) Anatomical Region Laterality Modality Upper Extremities, Fingers Left Radio graphic Imaging 07/12/2025 10:0 0 PM EDT Narrative 07/12/2025 10:01 PM EDT [place] [address] XRay Report Signed Patient: Altagracia Moe MR#: [id number] : 1945 Acct:[id number] Age/Sex: 79 / F ADM Date: 07/12/25 Loc: HO.ED Attending Dr: Ordering Physician: Whitney Shi MD Date of Service: 07/12/25 Procedure(s): XR finger LT min 2V Accession Number(s): [id number] cc: Erika Morris MD; Whitney Shi MD CLINICAL HISTORY: Fall, bruising and swelling 5th digit 3 view left 5th digit Comparison: None Findings: Acute comminuted nondisplaced fracture of the proximal phalanx of the 5th finger. Deformity of the 5th metacarpal most likely represent remote trauma.. Moderate surrounding soft tissue swelling. IMPRESSION: 1. Acute comminuted nondisplaced fracture of the 5th finger proximal phalanx. 2. Deformity of the 5th metacarpal most likely represent remote trauma. This document has been electronically signed by: Julien Lee MD on 07/12/2025 22:00:13 Dictated By: Julien Lee MD Signed By: <Electronically signed by Julien Lee MD in OV> 07/12/252199 DD/ 99 TD/TT: 07/12/252199 Nonprofit Fundraiser: Procedure Note Donotuseinterpreter, Image - 07/12/2025 [place] [address] XRay Report Signed Patient: Ajit Moe#: [id number] : 1945cct:[id number] Age/Sex: 79 / FADM Date: 07/12/25 Loc: .ED Attending Dr: Ordering Physician: Whitney Shi MD Date of Service: 07/12/25 Procedure(s): XR finger LT min 2V Accession Number(s): [id number] cc: Erika Morris MD; Whitney Shi MD CLINICAL HISTORY: Fall, bruising and swelling 5th digit 3 view left 5th digit Comparison: None Findings: Acute comminuted nondisplaced fracture of the proximal phalanx of the 5th finger. Deformity of the 5th metacarpal most likely represent remote trauma.. Moderate surrounding soft tissue swelling. IMPRESSION: 1. Acute comminuted nondisplaced fracture of the 5th finger proximal phalanx. 2. Deformity of the 5th metacarpal most likely represent remote trauma. This document has been electronically signed by: Julien Lee MD on 07/12/2025 22:00:13 Dictated By: Julien Lee MD Signed By: <Electronically signed by Julien Lee MD in OV> 07/12/252199 DD/ 99 TD/TT: 07/12/252199 Nonprofit Fundraiser: [facility] External Provider IMG XR PROCEDURES Final Result * Culture, Urine, Routine (06/04/2025 12:00 AM EDT) Only the most recent of2 resultswithin the time period is included. Urine Urine specimen obtained by clean catch procedure / Unknown 06/04/2025 06/04/2025 Comment:[facility] Narrative [facility] - 06/06/2025 8:12 AM EDT Klebsiella pneumoniae Quant > 100,000 cfu/mL Klebsiella pneumoniae: Ampicillin >=32(R) Klebsiella pneumoniae: Cefazolin 2(S) Klebsiella pneumoniae: Cefepime <=0.12(S) Klebsiella pneumoniae: Ceftriaxone <=0.25(S) Klebsiella pneumoniae: Ciprofloxacin <=0.06(S) Klebsiella pneumoniae: Gentamicin <=1(S) Klebsiella pneumoniae: Nitrofurantoin 64(I) Klebsiella pneumoniae: Trimethoprim/Sulfamethoxazole <=20(S) Specimen Source: Urine clean catch Erika Morris MD LAB MICROBIOLOGY - GENER AL ORDERABLES Final Result Performing Organization Address City/[facility]/ZIP Co de Phone Number [facility] [address] [place] [address] [phone] * Magnesium (05/22/2025 4:59 PM EDT) Only the most recent of2 resultswithin the time period is included. Magnesium 1.7 1.6 - 2.6 mg/dL [facility] 05/22/2025 4:59 PM EDT 05/22/2025 5:03 PM EDT Generic External Data Provider LAB BLOOD ORDERAB LES Final Result Performing Organization Address City/[facility]/ZIP Co de Phone Number [facility] [address] [place] [phone] * High Sensitivity Troponin I (05/22/2025 1:03 PM EDT) TROPONIN I HIGH SENSITIVITY 7.7 <3.5 - 17.0 ng/L [facility] Comment:The Rogers high sens itivity Troponin-I results should beused in conjunction with other diagnostic information suchas ECG, clinical observations and information, and patientsymptoms to aid in the diagnosis of AL. 05/22/2025 1:03 PM EDT 05/22/2025 1:10 PM EDT us Generic External Data Provider LAB BLOOD ORDERAB LES Final Result [facility] [address] [place] [phone] * SARS-CoV-2 RNA, Influenza A/B, and RSV RNA, Ql NAAT (05/22/2025 1:03 PM EDT) Pathologist [facility] Influenza A PCR NEGATIVE Negative [facility] Influenza B PCR NEGATIVE Negative [facility] Resp Syncy Virus RNA Qual PCR NEGATIVE Negative [facility] SARS COV2 PCR NEGATIVE Negative [facility] Comment:All test results mus t be [...] use by authorized laboratories.Testing performed on the [employer] GeneXpert utilizingreal-time RT-PCR.All SARS CoV2 and positive influenza A/B results arereported to [facility]. 05/22/2025 1:03 PM EDT 05/22/2025 1:10 PM EDT us Generic External Data Provider LAB MICROBIOLOGY - GENERAL ORDERABLES Final Result [facility] [address], [place] [phone] * (ABNORMAL) CBC auto differential (05/22/2025 1:03 PM EDT) White Blood Count 10.6 4.8 - 10.8 X10*3/uL [facility] Red Blood Count 3.96(L) 4.20 - 5.50 X10*6/uL [facility] Hemoglobin 10.9(L) 12.0 - 16.0 g/dl [facility] Hematocrit 32.7(L) 37.0 - 47.0 % [facility] Mean Corpuscular Volume 82.6 80.0 - 98.0 fL [facility] Mean Corpuscular Hemoglobin 27.5 27.0 - 33.0 pg [facility] Mean Corpuscular HGB Conc 33.3 31.0 - 35.0 g/dl [facility] Red Cell Distribution Width 15.6 11.0 - 16.0 % [facility] Platelet Count 175 160 - 400 X10*3/uL [facility] Mean Platelet Volume 11.9 9.4 - 12.3 fL [facility] Neutrophils Percent Auto 64.6 45 - 73 % [facility] Imm Gran Pct Auto 1.3(H) 0.0 - 0.4 % [facility] Lymphocytes Percent Auto 18.2(L) 20 - 40 % [facility] Monocytes Percent Auto 9.2 2 - 11 % [facility] Eosinophils Percent Auto 6.2(H) 0 - 4 % [facility] Basophils Percent Auto 0.5 0 - 2 % [facility] NRBC Pct Auto 0.0 0.0 - 0.2 /100WBC [facility] Neutrophils Absolute Auto 6.8 2.0 - 8.3 x10*3/uL [facility] Imm Gran Abs Auto 0.14(H) 0.00 - 0.03 X10*3/uL [facility] Lymphocytes Absolute Auto 1.9 1.2 - 4.9 X10*3/uL [facility] Monocytes Absolute Auto 1.0 0.1 - 1.2 X10*3/uL [facility] Eosinophils Absolute Auto 0.7(H) 0.0 - 0.4 X10*3/uL [facility] Basophils Absolute Auto 0.1 0.0 - 0.2 X10*3/uL [facility] NRBC Abs Auto 0.000 0.0 - 0.012 X10*3/uL [facility] 05/22/2025 1:03 PM EDT 05/22/2025 1:10 PM EDT us Generic External Data Provider LAB BLOOD ORDERAB LES Final Result [facility] [address] [place] [phone] * (ABNORMAL) Comprehensive Metabolic Panel (05/22/2025 1:03 PM EDT) Sodium 145 135 - 145 mmol/L [facility] Potassium 3.3 3.3 - 5.1 mmol/L [facility] Chloride 113(H) 96 - 108 mmol/L [facility] Carbon Dioxide 21(L) 22 - 29 mmol/L [facility] Anion Gap 14 12 - 20 [facility] Urea Nitrogen (BUN) 23(H) 9 - 16 mg/dL [facility] Creatinine, Serum 1.27 0.5 - 1.4 mg/dL [facility] Creatinine Clr Calc Pharmacy 33.5 [facility] Comment:Provided height and weight: 162.56 cm,68.3 kg.eGFR (calculated from the MDRD study equation) and eCrCl(calculated from the Cockcroft-Gault equation) are based ondifferent parameters and may not yield comparable results.If eCrCl result is absurd, please check patient'sheight/weight. Estimated Glomerular Filt Rate 40 [facility] Comment:Chronic Kidney Disea se: Estimated GFR < 60 mL/min/1.47g5Yflwav Kidney Disease: Estimated GFR < 15 mL/min/1.73m2 Glucose 83 60 - 115 mg/dL [facility] Calcium 7.2(L) 8.4 - 10.2 mg/dL [facility] Bilirubin, Total 0.4 0.0 - 1.0 mg/dL [facility] Aspartate Amino Transferase 22 5 - 31 U/L [facility] Alanine Aminotransferase 33(H) 0 - 31 U/L [facility] Total Protein 7.3 6.5 - 8.0 g/dL [facility] [facility] Albumin Level 3.8 3.5 - 5.0 g/dL [facility] Alkaline Phosphatase 147(H) 39 - 117 U/L [facility] 05/22/2025 1:03 PM EDT 05/22/2025 1:10 PM EDT us Generic External Data Provider LAB BLOOD ORDERAB LES Final Result [facility] [address] [place] [address] [phone] * (ABNORMAL) Lipid Panel with Reflex to Direct LDL (04/16/2023 11:12 AM EDT) Cholesterol, Total 187 <200 mg/dL [facility] HDL Cholesterol 66 > OR = 50 mg/dL [facility] Triglycerides 98 <150 mg/dL [facility] LDL Cholesterol 102(H) mg/dL (calc) [facility] Comment: Reference range: <100 Desirable range <100 mg/dL for primary prevention; <70 mg/dL for patients with CHD or diabetic patients with > or = 2 CHD risk factors. LDL-C is now calculated using the Moises calculation, which is a validated novel method providing better accuracy than the Friedewald equation in the estimation of LDL-C. John TAYLOR et al. DOMINIQUE. 2013;310(19): 5191-9104 (http://education.Cabe na Mala/faq/UBS070) Chol/HDLC Ratio 2.8 <5.0 (calc) [facility] Non-HDL Cholesterol 121 <130 mg/dL (calc) [facility] Comment: For patients with diabetes plus 1 major ASCVD risk factor, treating to a non-HDL-C goal of <100 mg/dL (LDL-C of <70 mg/dL) is considered a therapeutic option. 04/16/2023 11:1 2 AM EDT 04/16/2023 11:13 AM EDT Narrative [facility] - 04/16/2023 10:44 PM EDT FASTING:YES FASTING: YES Erika Morris MD LAB BLOOD ORDERABLES Fin al Result [facility] [address], [place] [address] [facility] [address] [place] [address] from Last 3 Months or Most Recently Relevant to Health Maintenance Insurance MEDICARE [facility] Advance Directives Documents on File Type Date Recorded Patient Rn Rehab Expl anation Advance Directives and Living Will 07/09/2024 4:07 PM Hea; Care Proxy Care Teams Blood Bank Attendant Relationship Specialty Start Date End Date Erika Morris MD [address] [place] [id number] PCP - General Family Medicine 08/07/18 Héctor YUAN 10/19/24
--- OUTSIDE RECORDS SUMMARY | 2025-07-16 10:08 | XMS_ITS | Clinical Summary ---
Author Organization [facility] Address [address] [place] [address] DR KULKARNI TAMANNA BIGGS [phone] Phone Care Team Providers Care Management Expert Name Role Phone Erika Morris MD Primary Care Provider [phone] Allergies No known active allergies Medications aspirin [...] Visit [facility] [address] [place] [address] Nawaf Guidry MD [address] [facility] [address] [place] [address] Health Maintenance Due Date Last [...] [place] Care Teams Management Expert Relationship Specialty Start Date End Date Erika Morris MD [address] [place] [id number] PCP - General Internal Medicine 11/08/21
--- OUTSIDE RECORDS SUMMARY | 2025-07-16 10:08 | XMS_ITS | Clinical Summary ---
Author Organization [facility] Address [address] [place] [phone] Phone Care Team Providers Care Professor Sculpture Name Role Phone Erika Morris MD Primary [...] Medical Devices Not on file Insurance [address] [place] [address] MEDICARE PART A & B . [address] [place] [address] MEDICARE PART A & B MEDICARE PART A & B MEDICARE PART A & B MEDICARE PART A & [place] [address] [place] [address] DENTAL Care Teams Professor Sculpture Relationship Specialty Start Date End Date Erika Morris MD [address] [place] [address] [address] [place] [address] PCP - General Internal Medicine 06/28/23 July Acuña DDS [address] [place] [phone] Dentistry 07/01/23 Additional Source Comments The information contained in this document represents components of the legal health record. It is not the complete legal health record.[facility]
--- OUTSIDE RECORDS SUMMARY | 2025-07-16 10:08 | XMS_ITS | Encounter Summary ---
Author Organization [employer] [facility] Address [address] [place] [address] Care Team Providers Care Early Intervention Specialist Name Role Phone Yariel Walton MD Primary Care Provider Encounter Details Date Type Department Care Team (Late st Contact Info) Description 10/19/2024 Lab Requisition [facility] - Main Lab [address] [facility] [place] [address] Yariel Walton MD [address] [place] [address] Chronic kidney disease, unspecified; Essential (primary) hypertension [...] documented as of this encounter Care Teams Early Intervention Specialist Relationship Specialty Start Date End Date Yariel Walton MD [address] [place] [address] PCP - General Family Medicine 10/12/24 documented as of this encounter
== END 2025-07-16 10:03 | disposition home or self-care (01) ==
LOC: HO.HHCX 10:02
PROVIDERS: Visit Provider Family Medicine
DX: R07.81 Pleurodynia (principal)
CPT/HCPCS: 71101

== ENCOUNTER → 2025-07-16 10:07 | Outpatient (BNV) | payer MEDICARE, MEDICAID, SELFPAY | PROVIDERS: Visit Provider Radiology Diagnostic Radiology | DX: S22.41XA Multiple fractures of ribs, right side, initial encounter for closed fracture (principal) | CPT/HCPCS: 71101 ==

== ENCOUNTER 2025-07-17 13:07 | Emergency (ER) | payer MEDICARE, MEDICAID, SELFPAY ==
[2025-07-17] VITALS (7 sets, daily range): BP systolic 146–182; BP diastolic 67–104; PULSE 65–92; RESP 11–18; TEMP 36.8–37; O2SAT 94–99; BMI 39.9
--- NOTE | ~2025-07-17 | XR_ITS ---
CLINICAL HISTORY: trauma 2 view left humerus Comparison: None provided Findings: There is a transverse fracture of the neck of the humerus with severe displacement. The humeral head remains within the glenoid fossa. The distal fracture fragment has been displaced by approximately 6 cm into the region of the subcoracoid bursa. Significant overlap of fracture fragments. There are fractures of the left 4th and 5th ribs. These appear to be chronic. Mild arthritic change. Severe soft tissue edema. IMPRESSION: Severely displaced fracture of the humerus. This document has been electronically signed by: Maria Esther Kaur MD on 07/17/2025 15:49:29
--- NOTE | ~2025-07-17 | XR_ITS ---
CLINICAL HISTORY: trauma, L upper chest pain 1 view chest x-ray Comparison: CR/SR - XR CHEST 1V - 03/10/25 16:29 EDT Findings: No consolidation or effusion. Mildly enlarged heart. Elongation of the aorta. There is a severely displaced fracture of the neck of the left humerus. There are fractures of the left 4th and 5th ribs without change. IMPRESSION: 1. Severely displaced fracture of the left humerus. 2. No acute cardiopulmonary disease. This document has been electronically signed by: Maria Esther Kaur MD on 07/17/2025 15:50:04
--- NOTE | 2025-07-17 13:34 | ECG_ITS ---
Test Reason : FALL Blood Pressure : */* mmHG Vent. Rate : 76 BPM Atrial Rate : 76 BPM P-R Int : 134 ms QRS Dur : 80 ms QT Int : 458 ms P-R-T Axes : 23 -6 -30 degrees QTcB Int : 515 ms Normal sinus rhythm Nonspecific ST and T wave abnormality Prolonged QT Abnormal ECG When compared with ECG of 12-Jul-2025 21:03, No significant changes seen Referred By: Generic ED Physician Electronically Signed By: LORRI LUCAS
--- OUTSIDE RECORDS SUMMARY | 2025-07-17 13:57 | XMS_ITS | Clinical Summary ---
Author Organization [facility] Address [address] [place] [address] DR KULKARNI TAMANNA BIGGS [phone] Phone Care Team Providers Care Cafe Manager Name Role Phone Erika Morris MD Primary Care Provider [phone] Allergies No known active allergies Medications aspirin [...] Visit [facility] [address] [place] [address] Nawaf Guidry MD [address] [facility] [address] [place] [address] Health Maintenance Due Date Last [...] [place] Medicaid [place] Care Teams Cafe Manager Relationship Specialty Start Date End Date Erika Morris MD [address] [place] [phone] PCP - General Internal Medicine 11/08/21
--- OUTSIDE RECORDS SUMMARY | 2025-07-17 13:57 | XMS_ITS | Clinical Summary ---
Author Organization [facility] Address [address] [place] [address] Phone Care Team Providers Care Quarry Boss Name Role Phone Erika Morris MD Primary [...] Medical Devices Not on file Insurance [address] [place] [address] MEDICARE PART A & B . [address] [place] [address] MEDICARE PART A & B MEDICARE PART A & B MEDICARE PART A & B MEDICARE PART A & [place] [address] DENTAL Care Teams Quarry Boss Relationship Specialty Start Date End Date Erika Morris MD [address] [place] [address] [address] [place] [address] PCP - General Internal Medicine 06/28/23 July Acuña DDS [address] [place] [address] [phone] Dentistry 07/01/23 Additional Source Comments The information contained in this document represents components of the legal health record. It is not the complete legal health record.[facility]
--- OUTSIDE RECORDS SUMMARY | 2025-07-17 13:57 | XMS_ITS | Encounter Summary ---
Author Organization [employer] [facility] Address [address] [place] [address] Care Team Providers Care Emergency Medicine Nurse Practitioner Name Role Phone Yariel Walton MD Primary Care Provider Encounter Details Date Type Department Care Team (Late st Contact Info) Description 10/19/2024 Lab Requisition [facility] - Main Lab [address] [facility] [place] [address] Yariel Walton MD [address] [place] [address] Chronic kidney disease, unspecified; Essential (primary) hypertension [...] as of this encounter Care Teams Emergency Medicine Nurse Practitioner Relationship Specialty Start Date End Date Yariel Walton MD [address] [place] [address] PCP - General Family Medicine 10/12/24 documented as of this encounter
--- OUTSIDE RECORDS SUMMARY | 2025-07-17 13:57 | XMS_ITS | Clinical Summary ---
Author Organization [employer] Address [address] [place] [address] Care Team Providers Care Mobile Lab Technician Name Role Phone Erika Morris [...] electrolyte imbalance, corrected Pt has underlying microvascular SPECIAL PROCEDURES TECHNOLOGIST compromise. Mental status is significantly improved, will [...] follow-up results. I will send Rx to [facility] pharmacy in [facility] if result comes up on the weekend, otherwise antibiotics can be sent to [facility] pharmacy Saturday through Saturday Continue wearing [...] family is working with insurance to increase [employer] hours. She will use transport wheelchair for longer transfers. Assessment & Plan (08/13/2024 3:13 PM EDT): Will send PT at home as gait has deteriorated since SNF discharge. Discussed with pt and [employer]/daughter regarding full precautions. Adenomatous polyp of colon [...] Other Recurrent major depression in partial remission (CMS/[facility]) Patient ready to address current needs Yes Strengths include motivation to seek behavioral health service PLAN: 1. Follow up with [facility]: Not recommended for follow-up 2. Patient goal [...] Currently off treatment (Lenalidomide was given at [facility]) for at least 1 month. Will discuss with Dr. Ernst Simms at next weeks appointment. We discussed with Pt and family regarding preventing falls due to high risk of fractures. Will order home safety evaluation and prescribe DME as needed. Monitor electrolytes Assessment & Plan (03/28/2023 2:09 PM EDT): seems to be stable on denosumab maintenance ever three months FU with [facility]ology continue close follow up with oncology [...] prescription next week continue close fu with [facility] nurse pt unable to void today, reminded [...] Description 07/16/2025 9:00 AM EDT Office Visit [facility] [address] [place] [address] Rib pain on right side (Primary Dx); Closed nondisplaced fracture of proximal phalanx of left little finger, initial encounter 07/16/2025 Results Follow-Up [facility] [address] [place] [address] Jaguar Meredith MD XR Ribs 3 Views Right with Chest 1 View 07/16/2025 Travel 07/15/2025 Results Follow-Up [address] [address] Sinus Facial Bones w/o Contrast 07/15/[address] [address] Murray Augustine [place] chart prep 07/13/[address] [address] Erika Morris MD ER Follow-up 07/13/2025 Orders Only GENERIC EXTERNAL DATA DEPARTMENT Provider, Generic External Data 07/12/2025 Orders Only [facility] External Provider, [facility] 06/10/2025 Results Follow-Up [address] [address] Erika Morris MD Culture, Urine, Routine 06/04/2025 12:00 PM EDT Office Visit [address] [address] Erika Morris MD Chronic diarrhea (Primary Dx); Mixed stress and urge urinary incontinence; Hypomagnesemia 06/04/2025 Orders Only [address] [address] Erika Morris MD 06/04/2025 Travel 05/25/[address] [address] Erika Morris MD Nurse Triage 05/22/2025 Orders Only GENERIC EXTERNAL DATA DEPARTMENT Provider, Generic External Data 05/20/[address] [address] Erika Morris MD from Last 3 Months [...] Description 08/10/2025 12:00 PM EDT Office Visit [facility] [address] [place] [address] Erika Morris MD [address] [place], [place] [phone] Health Maintenance Due Date Last Done Comments [...] 25 SDOH Screening 06/04/2026 06/04/2025 Tobacco Screening 07/16/2026 07/16/2025 Lipid Panel 04/16/2028 04/16/2023, 09/18/2021 DTaP/Tdap/Td Vaccines [...] Procedure Name Priority Date/Time Associated Diagnosis Comments XR RIBS 3 VIEWS RIGHT W CHEST 1 VIEW Routine 07/16/2025 10:10 AM EDT URINALYSIS, COMPLETE, WITH REFLEX TO CULTURE [...] Recently Relevant to Health Maintenance Results * XR Ribs 3 Views Right with Chest 1 View (07/16/2025 10:10 AM EDT) Anatomical Region Laterality Modality Radiographic Sidra ging 07/16/2025 10:1 0 AM EDT Narrative 07/16/2025 10:47 AM EDT [address] [address] XRay Report Signed Patient: Altagracia Moe MR#: [id number] : 1945 Acct:[id number] Age/Sex: 79 / F ADM Date: 07/16/25 Loc: HO.HHCX Attending Dr: Jaguar Meredith MD Ordering Physician: Jaguar Meredith MD Date of Service: 07/16/25 Procedure(s): XR ribs RT min 3V w CXR1V Accession Number(s): [id number] cc: Jaguar Meredith MD EXAMINATION: XR RIBS, RIGHT CLINICAL INFORMATION: Rib pain on right side COMPARISON: March 10, 2025 TECHNIQUE: PA chest and 3 views of the right ribs were obtained. FINDINGS: Lungs are clear. Heart size is enlarged. There is cortical step-off involving anterolateral right ninth and 10th ribs. XR/XR ribs RT min 3V w CXR1V IMPRESSION: Anterior right ninth and 10th rib fractures Cardiomegaly Electronically signed by: Roberto Barry MD 07/16/2025 10:44 AM EDT RP Dictated By: Roberto Barry MD Signed By: <Electronically signed by Roberto Barry MD in OV> 07/16/25 1044 DD/ 1010 TD/TT: 07/16/25 1020 Securities Compliance Examiner: Procedure Note Donotuseinterpreter, Image - 07/16/[address] [address] XRay Report Signed Patient: Ajit Moe#: [id number] : 4Acct:[id number] Age/Sex: 79 / FADM Date: 07/16/25 Loc: HO.HHCX Attending Dr: Jaguar Meredith MD Ordering Physician: Jaguar Meredith MD Date of Service: 07/16/25 Procedure(s): XR ribs RT min 3V w CXR1V Accession Number(s): [id number] cc: Jaguar Meredith MD EXAMINATION: XR RIBS, RIGHT CLINICAL INFORMATION: Rib pain on right side COMPARISON: March 10, 2025 TECHNIQUE: PA chest and 3 views of the right ribs were obtained. FINDINGS: Lungs are clear. Heart size is enlarged. There is cortical step-off involving anterolateral right ninth and 10th ribs. XR/XR ribs RT min 3V w CXR1V IMPRESSION: Anterior right ninth and 10th rib fractures Cardiomegaly Electronically signed by: Roberto Barry MD 07/16/2025 10:44 AM EDT RP Dictated By: Roberto Barry MD Signed By: <Electronically signed by Roberto Barry MD in OV> 07/16/25 1044 DD/ 1010 TD/TT: 07/16/25 1020 Securities Compliance Examiner: us Jaguar Meredith MD IMG XR PROCEDURES Final Result * (ABNORMAL) Urinalysis, Complete, with Reflex to Culture (07/13/2025 1:35 AM EDT) Only the most recent of3 resultswithin the time period is included. Color Urine Yellow [facility] Appearance Urine Clear [facility] PH 6.0 5.0 - 9.0 [facility] Glucose Urine UA Negative Negative mg/dL [facility] Urine Blood Negative Negative [facility] Specific [place] - Urine 1.015 1.005 - 1.025 [facility] Urine Protein 100 (2+)(A) Neg-Trace mg/dL [facility] Urine Ketones Negative Negative mg/dL [facility] Nitrite Urine Negative Negative [facility] Leukocyte Esterase Urine Trace(A) Negative [facility] RBC Urine 0-2 0 - 2 /HPF [facility] Urine WBC 0-5 0 - 5 /HPF [facility] Urine Squamous Epithelial Cell 3-5 0 - 2 /HPF [facility] Urine Bacteria 1+ None Seen [facility] Hyaline Casts, Urine 0-2 0 - 2 /LPF [facility] 07/13/2025 1:35 AM EDT 07/13/2025 1:38 AM EDT Narrative [facility] - 07/13/2025 1:50 AM EDT Urine, Clean Catch us Generic External Data Provider LAB URINE ORDERAB LES Final Result [facility] [address] [place] [phone] * CT Sinus Facial Bones w/o Contrast (07/13/2025 12:36 AM EDT) Anatomical Region Laterality Modality Computed Tomogra phy 07/13/2025 12:3 6 AM EDT Narrative 07/13/2025 12:40 AM EDT [address] [address] [address] Scan Report Signed with Kadi Patient: Altagracia Moe MR#: [id number] : 1945 Acct:[id number] Age/Sex: 79 / F ADM Date: 07/12/25 Loc: HO.ED Attending Dr: Ordering Physician: Whitney Shi MD Date of Service: 07/12/25 Procedure(s): CT facial bones wo IV con Accession Number(s): [id number] cc: Erika Morris MD; Whitney Shi MD Report Number: [id number]: Total DLP = 349.00 mGy-cm ADDENDUM This [...] MD in OV> 07/13/2537 DD/ TD/TT: 07/13/2535 Securities Compliance Examiner: Procedure Note Donotuseinterpreter, Image - 07/13/[address] [address] [address] Scan Report Signed with Kadi Patient: Ajit Moe#: [id number] : 1945cct:[id number] Age/Sex: 79 / FADM Date: 07/12/25 Loc: HO.ED Attending Dr: Ordering Physician: Whitney Shi MD Date of Service: 07/12/25 Procedure(s): CT facial bones wo IV con Accession Number(s): [id number] cc: Erika Morris MD; Whitney Shi MD Report Number: [id number]: Total DLP = 349.00 mGy-cm ADDENDUM This [...] MD in OV> 07/13/2537 DD/ TD/TT: 07/13/2535 Securities Compliance Examiner: [facility] External Provider IMG CT PROCEDURES Edited Result - Final * CT Cervical Spine w/o Contrast (07/13/2025 12:24 AM EDT) Anatomical Region Laterality Modality Spine, C-spine Computed Tomogra phy 07/13/2025 12:2 4 AM EDT Narrative 07/13/2025 12:26 AM EDT [place] [address] [address] Scan Report Signed Patient: Altagracia Moe MR#: [id number] : 1945 Acct:[id number] Age/Sex: 79 / F ADM Date: 07/12/25 Loc: HO.ED Attending Dr: Ordering Physician: Whitney Shi MD Date of Service: 07/12/25 Procedure(s): CT cervical spine wo IV con Accession Number(s): [id number] cc: Erika Morris MD; Whitney Shi MD Report Number: [id number]: Total DLP = 342.00 mGy-cm CLINICAL HISTORY: [...] MD in OV> 07/13/2524 DD/ TD/TT: 07/13/2523 Securities Compliance Examiner: Procedure Note Donotuseinterpreter, Image - 07/13/[address] [address] [address] Scan Report Signed Patient: Altagracia MoeMR#: [id number] : 1945cct:[id number] Age/Sex: 79 / FADM Date: 07/12/25 Loc: HO.ED Attending Dr: Ordering Physician: Whitney Shi MD Date of Service: 07/12/25 Procedure(s): CT cervical spine wo IV con Accession Number(s): [id number] cc: rEika Morris MD; Whitney Shi MD Report Number: [id number]: Total DLP = 342.00 mGy-cm CLINICAL HISTORY: [...] MD in OV> 07/13/2524 DD/ TD/TT: 07/13/2523 Securities Compliance Examiner: us [facility] External Provider IMG CT PROCEDURES Final Result * CT Head w/o Contrast (07/13/2025 12:14 AM EDT) Anatomical Region Laterality Modality Head, Neck Computed Tomogra phy 07/13/2025 12:1 4 AM EDT Narrative 07/13/2025 12:17 AM EDT [address] [address] [address] Scan Report Signed Patient: Altagracia Moe MR#: [id number] : 1945 Acct:[id number] Age/Sex: 79 / F ADM Date: 07/12/25 Loc: HO.ED Attending Dr: Ordering Physician: Whitney Shi MD Date of Service: 07/12/25 Procedure(s): CT head/brain wo IV con Accession Number(s): [id number] cc: Erika Morris MD; Whitney Shi MD Report Number: [id number]: Total DLP = 568.00 mGy-cm CLINICAL HISTORY: [...] MD in OV> 07/13/2514 DD/ TD/TT: 07/13/2513 Securities Compliance Examiner: Procedure Note Donotuseinterpreter, Image - 07/13/[address] [place] [address] [address] Scan Report Signed Patient: Altagracia Moe#: [id number] : 1945cct:[id number] Age/Sex: 79 / FADM Date: 07/12/25 Loc: HO.ED Attending Dr: Ordering Physician: Whitney Shi MD Date of Service: 07/12/25 Procedure(s): CT head/brain wo IV con Accession Number(s): [id number] cc: Erika Morris MD; Whitney Shi MD Report Number: [id number]: Total DLP = 568.00 mGy-cm CLINICAL HISTORY: [...] signed by Yousuf Ferguson MD in OV> 07/13/25 0015 DD/ TD/TT: 07/13/2513 Securities Compliance Examiner: [facility] External Provider IMG CT PROCEDURES Final Result * XR Fingers 2+ Views Left (07/12/2025 10:00 PM EDT) Anatomical Region Laterality Modality Upper Extremities, Fingers Left Radio graphic Imaging 07/12/2025 10:0 0 PM EDT Narrative 07/12/2025 10:01 PM EDT [place] [address] XRay Report Signed Patient: Altagracia Moe MR#: [id number] : 1945 Acct:[id number] Age/Sex: 79 / F ADM Date: 07/12/25 Loc: HO.ED Attending Dr: Ordering Physician: Whitney Shi MD Date of Service: 07/12/25 Procedure(s): XR finger LT min 2V Accession Number(s): [id number] cc: Erika Morris MD; Whitney Shi MD [...] in OV> 07/12/252199 DD/ 99 TD/TT: 07/12/252199 Securities Compliance Examiner: Procedure Note Donoturiinterpreter, Image - 07/12/2025 [place] [address] XRay Report Signed Patient: Ajit Moe#: [id number] : 1945cct:[id number] Age/Sex: 79 / FADM Date: 07/12/25 Loc: .ED Attending Dr: Ordering Physician: Whitney Shi MD Date of Service: 07/12/25 Procedure(s): XR finger LT min 2V Accession Number(s): [id number] cc: Erika Morris MD; Whitney Shi MD [...] This document has been electronically signed by: uJlien Lee MD on 07/12/2025 22:00:13 Dictated By: Julien Lee MD Signed By: <Electronically signed by Julien Lee MD in OV> 07/12/252199 DD/ 99 TD/TT: 07/12/252199 Securities Compliance Examiner: [facility] External Provider IMG XR PROCEDURES Final Result * Culture, Urine, Routine (06/04/2025 12:00 AM EDT) Only the most recent of2 resultswithin the time period is included. Urine Urine specimen obtained by clean catch procedure / Unknown 06/04/2025 06/04/2025 Comment:UACC Narrative [facility] - 06/06/2025 8:12 AM EDT Klebsiella pneumoniae Quant > 100,000 cfu/mL Klebsiella pneumoniae: Ampicillin >=32(R) Klebsiella pneumoniae: Cefazolin 2(S) Klebsiella pneumoniae: Cefepime <=0.12(S) Klebsiella pneumoniae: Ceftriaxone <=0.25(S) Klebsiella pneumoniae: Ciprofloxacin <=0.06(S) Klebsiella pneumoniae: Gentamicin <=1(S) Klebsiella pneumoniae: Nitrofurantoin 64(I) Klebsiella pneumoniae: Trimethoprim/Sulfamethoxazole <=20(S) Specimen Source: Urine clean catch us Erika Morris MD LAB MICROBIOLOGY - GENER AL ORDERABLES Final Result Performing Organization Address City/[facility]/ZIP Co de Phone Number [facility] [address] [place] [phone] * Magnesium (05/22/2025 4:59 PM EDT) Only the most recent of2 resultswithin the time period is included. Magnesium 1.7 1.6 - 2.6 mg/dL [facility] 05/22/2025 4:59 PM EDT 05/22/2025 5:03 PM EDT us Generic External Data Provider LAB BLOOD ORDERAB LES Final Result Performing Organization Address [facility]/ZIP Co de Phone Number [facility] [address] [place] [phone] * High Sensitivity Troponin I (05/22/2025 1:03 PM EDT) TROPONIN I HIGH SENSITIVITY 7.7 <3.5 - 17.0 ng/L [facility] Comment:The Rogers high sens itivity Troponin-I results should beused in conjunction with other diagnostic information suchas ECG, clinical observations and information, and patientsymptoms to aid in the diagnosis of GA. 05/22/2025 1:03 PM EDT 05/22/2025 1:10 PM EDT Generic External Data Provider LAB BLOOD ORDERAB LES Final Result Performing Organization Address [facility] Co de Phone Number [facility] [address] [place] [phone] * SARS-CoV-2 RNA, Influenza A/B, and RSV RNA, Ql NAAT (05/22/2025 1:03 PM EDT) [facility] Influenza A PCR NEGATIVE Negative [facility] Influenza B PCR NEGATIVE Negative [facility] Resp Syncy Virus RNA Qual PCR NEGATIVE Negative [facility] SARS COV2 PCR NEGATIVE Negative [facility] Comment:All test results mus t [...] use by authorized laboratories.Testing performed on the [employer] GeneXpert utilizingreal-time RT-PCR.All SARS CoV2 and positive influenza A/B results arereported to [facility]. 05/22/2025 1:03 PM EDT 05/22/2025 1:10 PM EDT Generic External Data Provider LAB MICROBIOLOGY - GENERAL ORDERABLES Final Result Performing Organization Address [facility]/ZIP Co de Phone Number [facility] [address] [place] [phone] * (ABNORMAL) CBC auto differential (05/22/2025 1:03 PM EDT) [facility] White Blood Count 10.6 4.8 - 10.8 X10*3/uL [facility] Red Blood Count 3.96(L) 4.20 - 5.50 X10*6/uL [facility] Hemoglobin 10.9(L) 12.0 - 16.0 g/dl [facility] Hematocrit 32.7(L) 37.0 - 47.0 % [facility] Mean Corpuscular Volume 82.6 80.0 - 98.0 fL [facility] Mean Corpuscular Hemoglobin 27.5 27.0 - 33.0 pg [facility] Mean Corpuscular HGB Conc 33.3 31.0 - 35.0 g/dl [facility] Red Cell Distribution Width 15.6 11.0 - 16.0 % [facility] Platelet Count 175 160 - 400 X10*3/uL [facility] Mean Platelet Volume 11.9 9.4 - 12.3 fL [facility] Neutrophils Percent Auto 64.6 45 - 73 % [facility] Imm Gran Pct Auto 1.3(H) 0.0 - 0.4 % [facility] Lymphocytes Percent Auto 18.2(L) 20 - 40 % [facility] Monocytes Percent Auto 9.2 2 - 11 % [facility] Eosinophils Percent Auto 6.2(H) 0 - 4 % [facility] Basophils Percent Auto 0.5 0 - 2 % [facility] NRBC Pct Auto 0.0 0.0 - 0.2 /100WBC [facility] Neutrophils Absolute Auto 6.8 2.0 - 8.3 x10*3/uL [facility] Imm Gran Abs Auto 0.14(H) 0.00 - 0.03 X10*3/uL [facility] Lymphocytes Absolute Auto 1.9 1.2 - 4.9 X10*3/uL [facility] Monocytes Absolute Auto 1.0 0.1 - 1.2 X10*3/uL [facility] Eosinophils Absolute Auto 0.7(H) 0.0 - 0.4 X10*3/uL [facility] Basophils Absolute Auto 0.1 0.0 - 0.2 X10*3/uL [facility] NRBC Abs Auto 0.000 0.0 - 0.012 X10*3/uL [facility] 05/22/2025 1:03 PM EDT 05/22/2025 1:10 PM EDT us Generic External Data Provider LAB BLOOD ORDERAB LES Final Result [facility] [address] [place] [phone] * (ABNORMAL) Comprehensive Metabolic Panel (05/22/2025 1:03 PM EDT) Sodium 145 135 - 145 mmol/L [facility] Potassium 3.3 3.3 - 5.1 mmol/L [facility] Chloride 113(H) 96 - 108 mmol/L [facility] Carbon Dioxide 21(L) 22 - 29 mmol/L [facility] Anion Gap 14 12 - 20 [facility] Urea Nitrogen (BUN) 23(H) 9 - 16 mg/dL [facility] Creatinine, Serum 1.27 0.5 - 1.4 mg/dL [facility] Creatinine Clr Calc Pharmacy 33.5 [facility] Comment:Provided height and weight: 162.56 cm,68.3 kg.eGFR (calculated from the MDRD study equation) and eCrCl(calculated from the Cockcroft-Gault equation) are based ondifferent parameters and may not yield comparable results.If eCrCl result is absurd, please check patient'sheight/weight. Estimated Glomerular Filt Rate 40 [facility] Comment:Chronic Kidney Disea se: Estimated GFR < 60 mL/min/1.71o9Nspcfv Kidney Disease: Estimated GFR < 15 mL/min/1.73m2 Glucose 83 60 - 115 mg/dL [facility] Calcium 7.2(L) 8.4 - 10.2 mg/dL [facility] Bilirubin, Total 0.4 0.0 - 1.0 mg/dL [facility] Aspartate Amino Transferase 22 5 - 31 U/L [facility] Alanine Aminotransferase 33(H) 0 - 31 U/L [facility] Total Protein 7.3 6.5 - 8.0 g/dL [facility] Albumin Level 3.8 3.5 - 5.0 g/dL [facility] Alkaline Phosphatase 147(H) 39 - 117 U/L [facility] 05/22/2025 1:03 PM EDT 05/22/2025 1:10 PM EDT us Generic External Data Provider LAB BLOOD ORDERAB LES Final Result [facility] [address] [place] [phone] * (ABNORMAL) Lipid Panel with Reflex to Direct LDL (04/16/2023 11:12 AM EDT) Cholesterol, Total 187 <200 mg/dL [facility] [place] [employer] HDL Cholesterol 66 > OR = 50 mg/dL [facility] [place] [employer] Triglycerides 98 <150 mg/dL [facility] [place] [employer] LDL Cholesterol 102(H) mg/dL (calc) [facility] [place] [employer] Comment: Reference range: <100 Desirable range <100 mg/dL for primary prevention; <70 mg/dL for patients with CHD or diabetic patients with > or = 2 CHD risk factors. LDL-C is now calculated using the John-Freed calculation, which is a validated novel method providing better accuracy than the Friedewald equation in the estimation of LDL-C. John TAYLOR et al. DOMINIQUE. 2013;310(19): 5177-4123 (http://education.Eximia/faq/FHX204) Chol/HDLC Ratio 2.8 <5.0 (calc) [facility] [place] [employer] Non-HDL Cholesterol 121 <130 mg/dL (calc) [facility] [place] [employer] Comment: For patients with diabetes plus 1 major ASCVD risk factor, treating to a non-HDL-C goal of <100 mg/dL (LDL-C of <70 mg/dL) is considered a therapeutic option. 04/16/2023 11:1 2 AM EDT 04/16/2023 11:13 AM EDT Narrative [facility] - 04/16/2023 10:44 PM EDT FASTING:YES FASTING: YES Erika Morris MD LAB BLOOD ORDERABLES Fin al Result [facility] [address], [place] [phone] [facility] [employer] [place] [facility] [address] [place] [phone] from Last 3 Months or Most Recently Relevant to Health Maintenance Insurance MEDICARE [facility] Advance Directives Documents on File Type Date Recorded Patient Financial Brokers Expl anation Advance Directives and Living Will 07/09/2024 4:07 PM Hea; Care Proxy Care Teams Mobile Lab Technician Relationship Specialty Start Date End Date Erika Morris MD [address] [place] [phone] PCP - General Family Medicine 08/07/18 Héctor Nelly 10/19/24
--- NOTE | 2025-07-17 14:00 | ED.GENADULT ---
HPI - General Adult General Chief complaint: Fall Stated complaint: FALL,-THIN,-LOC,+CCOLLAR,L SHOULDER PAIN PER EMS Time Seen by Provider: 07/17/25 13:59 History of Present Illness ED Provider: Elizabeth DAVALOS narrative: The patient is an 79-year-old female who lives at home with her son. The patient has a fall at home today. She injured her left shoulder and left upper chest. She did not hit her head. She had no loss of consciousness. She has no headache or neck pain. However she has a lot of pain primarily in the left upper arm and can not move the arm because of pain. The patient has been seen here 4 days ago on July 13 for a fall. At that time she had several imaging studies done including a facial bone x-ray that showed a nondisplaced nasal fracture. She has facial bruising that she attributes to this previous fall. Related Data Home Medications ?Medication ?Instructions ?Recorded ?Confirmed levothyroxine 75 mcg tablet 100 mcg PO DAILY@0600 10/27/20 07/18/25 aspirin 81 mg chewable tablet 81 mg PO DAILY 12/16/20 07/17/25 mirtazapine 30 mg tablet 30 mg PO BEDTIME 12/16/20 07/17/25 fluoxetine 40 mg capsule 1 cap PO DAILY 05/12/22 07/17/25 loperamide 2 mg tablet 2 mg PO Q4H PRN Loose Stool 02/25/24 07/17/25 trazodone 50 mg tablet 12.5 mg PO BID 09/18/24 07/17/25 lidocaine 5 % topical cream 1 appl topical BID 11/24/24 07/17/25 Previous Rx's ?Medication ?Instructions ?Recorded calcium carbonate (Oyster Shell 500 mg PO TID 30 days #90 tabs 05/13/22 Calcium 500) sodium bicarbonate 650 mg tablet 650 mg PO TID #90 tabs 09/24/24 magnesium 250 mg tablet 250 mg PO DAILY #7 tabs 05/22/25 ibuprofen 600 mg tablet 600 mg PO Q8H PRN fever or pain 07/13/25 #20 tabs Allergies Allergy/AdvReac Type Severity Reaction Status Date / Time No Known Allergies (No Known Allergy Verified 07/17/25 13:25 Allergies*) Review of Systems Review of Systems: Yes all other systems are reviewed and are negative PMFSH Past Medical History Medical History Multiple myeloma Chronic diarrhea Tubulovillous adenoma Depression H/O gastroesophageal reflux (GERD) Hx of multiple myeloma Hypothyroidism Surgical History H/O tooth extraction History of bone marrow biopsy History of cholecystectomy Family History Family History Daughter Diabetes Thyroid cancer Social History Social History Household Members: Family Household Members Other:: adult son Housing: Apartment Are you a primary menagerie caretaker to a significant other at home: No Do you presently have visiting nurse or other home services: Yes Alcohol intake: never Comment: 1:[address] until 23:00 due to staffing constraints Patient Tobacco Use Status: Former Tobacco user Tobacco use type: Cigarette Years Smoked: 20 Smoked in Last 30 Days: No e-Cigarette/Vaping Use: Never Used Second Hand Smoke Exposure: No Use of substances other than those prescribed or required for medical reasons: No Substance Use Type: Marijuana Advance Directives: Yes Advance Directives on File: Yes Advance Directives Date on File: 07/12/25 Do you have a plan to hurt others: No Plan service: No Current occupational status: unemployed Physical Exam ED Vital Signs: Vital Signs - 24 hr 07/21/25 13:48 07/21/25 22:00 07/22/25 06:00 Temperature 96.9 F 98.3 F 97.7 F Pulse Rate 62 65 68 Respiratory Rate 16 18 18 Blood Pressure 108/62 164/90 H 152/82 H Pulse Oximetry 94 97 96 Oxygen Delivery Method Room Air Room Air Room Air BMI result Body Mass Index 39.9 Const Other: The patient is an 79-year-old female who was wearing a cervical collar. She was awake and alert. She was pleasant and cooperative. She looks chronically ill. HENMT Other: The patient has a lot of diffuse facial bruising bilaterally that looks somewhat subacute. The face is symmetrical. Mucous membranes are moist. Eyes Other: Pupils are round equal, conjunctivae are clear, extraocular movements intact Neck Other: No posterior midline C-spine tenderness. No pain with range of motion. C-spine is clinically clear. Chest Other: There is some left upper anterior chest wall tenderness. No crepitus. No subcutaneous emphysema. Resp Effort & Inspection: normal respiratory effort Auscultation: clear to auscultation bilaterally GI Other: Abdomen is soft and nontender Skin Other: There is bruising to the left upper arm. The skin is intact. There is also bruising to the ulnar aspect of the left hand. The skin is intact. Neuro Other: The patient is awake and alert with a normal mental status. Cranial nerves are intact. She can use her right arm well. Also her legs. She can not use the left arm because of pain in the left shoulder. She can use the fingers of the left hand fairly well. Extrem Other: The patient has significant swelling and bruising to the left proximal humerus with a associated significant tenderness. Clinically this would be suggestive of a probable proximal humerus fracture. Additionally the patient has some bruising to the skin on the left hand near the distal 5th left metacarpal. No gross deformity. Course Reevaluation(s) Reevaluation #1: SOHAN Cervantes Physician observation continued. Uneventful night. Vital signs stable. No complaints from nursing overnight. Med reconciliation reviewed and done. Pending disposition. Will continue to monitor. Reevaluation #2: 07/19/25 14:13 WANG Diggs: Physician observation continued, no overnight events reported by nursing. Awaiting PT eval and possible short-term rehab placement, case management following for disposition. Time: 17:05 Date: 07/20/25 Provider: SOHAN Doty Patient in physician observation for case management needs. No acute events reported overnight.? No current issues or complaints. VS stable. Awaiting case management disposition. 07/21/2025 0800 Kati Whitley PA-C ----> Observation continues. Case management continues to follow. 07/22/2025 0956 Kati Whitley PA-C ----> Observation care revealed the the patient does not meet medical necessity for hospitalization. Final disposition of discharge to [facility] discussed with the patient who verbalized understanding and agreement. Patient completed observation care at 0956 on 07/22/2025, total time spent in observation care was 4 days, 17 hours, and 37 minutes. Medications Administered Generic Name Dose Route Start Last Admin Trade Name Freq PRN Reason Stop Dose Admin Acetaminophen 975 mg 07/18/25 01:00 07/22/25 08:45 Acetaminophen 325 Mg Tablet PO 975 mg Q8H KULDEEP Administration Aspirin 81 mg 07/18/25 09:00 07/22/25 08:47 Aspirin 81 Mg Tab.Chew PO 81 mg DAILY KULDEEP Administration Calcium Carbonate 500 mg 07/17/25 21:00 07/22/25 08:47 Calcium Oyster Shell Elemental 500 Mg Tablet PO 500 mg TID [facility] Administration Fluoxetine HCl 40 mg 07/18/25 09:00 07/22/25 08:46 Fluoxetine Hcl 20 Mg Capsule PO 40 mg DAILY [facility] Administration Ibuprofen 600 mg 07/18/25 08:49 07/18/25 22:32 Ibuprofen 600 Mg Tablet PO 600 mg Q8H PRN Administration fever or pain Levothyroxine Sodium 100 mcg 07/18/25 06:00 07/22/25 05:59 Levothyroxine Sodium 100 Mcg Tablet PO 100 mcg DAILY@0600 [facility] Administration Lidocaine 1 appl 07/18/25 09:15 07/22/25 09:05 Lidocaine 5 % Ointment 35 Gm TOPICAL Not Given BID [facility] Magnesium Oxide 200 mg 07/18/25 09:00 07/22/25 08:47 Magnesium Oxide 400 Mg Tablet PO 200 mg DAILY [facility] Administration Mirtazapine 30 mg 07/17/25 21:00 07/21/25 20:49 Mirtazapine 30 Mg Tablet PO 30 mg BEDTIME [facility] Administration Oxycodone HCl 5 mg 07/17/25 20:46 07/22/25 08:46 Oxycodone Hcl Immed Release 5 Mg Tablet PO 5 mg Q6H PRN Administration Pain, Severe (Pain Scale 7-10) Sodium Bicarbonate 650 mg 07/17/25 21:00 07/22/25 08:47 Sodium Bicarbonate 650 Mg Tablet PO 650 mg TID [facility] Administration Trazodone HCl 12.5 mg 07/17/25 21:00 07/22/25 08:46 Trazodone Hcl 50 Mg Tablet PO 12.5 mg BID [facility] Administration Discontinued Medications Generic Name Dose Route Start Last Admin Trade Name Freq PRN Reason Stop Dose Admin Magnesium Sulfate 2 gm in 50 mls @ 25 mls/hr 07/17/25 15:21 07/17/25 17:12 Magnesium Sulfate/H2o IV 07/17/25 17:20 Infused ONCE ONE Infusion Acetaminophen 1,000 mg in 100 mls @ 400 mls/hr 07/17/25 16:37 07/17/25 18:00 Ofirmev IV 07/17/25 16:51 Infused ONCE ONE Infusion Procedures Orthopedic Splinting/Casting Injury #1: Side: left Upper Extremity Injury Location: hand Upper Extremity Immobilizer: ulnar gutter Additional Comments: A left ulnar gutter splint was applied to address a left distal metacarpal fracture identified 4 days ago on the previous ER visit. The patient had apparently been previously splinted but the splint had come off. I applied a new splint using cast padding, Orthoglass, and Garett bandages. The patient tolerated application of the splint well and she remained neurovascularly intact. There was some molding to the splint with extension of the wrist and flexion at the MCP joints. Medical Decision Making Medical Decision Making MDM Narrative: The patient is a very pleasant 79-year-old woman who fell at home injuring her left upper arm. There was no head injury. She was seen here 4 days ago for a fall as well. At that time she was found to have a nondisplaced nasal bone fracture. Also a fracture of the left 5th metacarpal bone. The patient's magnesium is low at 1.1 today. She will be given IV magnesium. The patient presents with a significant fall with a in the space of 4 days' time. She fractured her left 4th metacarpal 4 days ago and also her nose. Today she has fractured her left proximal humerus. I discussed the humerus fracture with the orthopedic team. Conservative management is recommended. The patient was placed in a sling. I also applied a left ulnar gutter splint to address the previously diagnosed left 5th metacarpal fracture. The patient had removed her previous splint. The patient has son and healthcare proxy was at the bedside. He does not feel that the patient is currently in a safe living situation given these frequent falls. The patient will be therefore kept in the emergency room for evaluation by physical therapy and case management. The patient has a history of multiple myeloma and receives ongoing treatment from Dr. Dukes. Since the patient will be kept in the emergency room for physician observation and physical therapy and case management evaluation I discussed code status with the patient and her son who was the healthcare proxy. She indicated that while she would like to have CPR done in case her heart stops she does not want to be placed on a ventilator and therefore is DNI. I have placed an order in the hospital EMR to this effect. The patient is therefore placed in physician observation. Lab Data 07/17/25 13:58 07/17/25 13:58 Labs: Lab Results 07/17/25 07/17/25 07/18/25 Range/Units 13:58 19:23 08:14 WBC 13.6 H (4.8-10.8) X10*3/uL RBC 3.64 L (4.20-5.50) X10*6/uL Hgb 10.1 L (12.0-16.0) g/dl Hct 30.7 L (37.0-47.0) % MCV 84.3 (80.0-98.0) fL MCH 27.7 (27.0-33.0) pg MCHC 32.9 (31.0-35.0) g/dl RDW 15.0 (11.0-16.0) % Plt Count 196 (160-400) X10*3/uL MPV 11.4 (9.4-12.3) fL Immature Gran % (Auto) 0.7 H (0.0-0.4) % Neut % (Auto) 82.9 H (45-73) % Lymph % (Auto) 9.7 L (20-40) % [place] % (Auto) 6.3 (2-11) % Eos % (Auto) 0.0 (0-4) % Baso % (Auto) 0.4 (0-2) % Lymph # (Auto) 1.3 (1.2-4.9) X10*3/uL [place] # (Auto) 0.9 (0.1-1.2) X10*3/uL Eos # (Auto) 0.0 (0.0-0.4) X10*3/uL Baso # (Auto) 0.1 (0.0-0.2) X10*3/uL Abs Immat Gran (auto) 0.10 H (0.00-0.03) X10*3/uL Absolute Neuts (auto) 11.3 H (2.0-8.3) x10*3/uL Absolute Nucleated RBC 0.000 (0.0-0.012) X10*3/uL Nucleated RBC % (auto) 0.0 (0.0-0.2) /100WBC PT 11.8 (10.9-12.4) SEC INR 1.0 (0.9-1.1) Sodium 144 (135-145) mmol/L Potassium 3.7 (3.3-5.1) mmol/L Chloride 110 H (96-108) mmol/L Carbon Dioxide 20 L (22-29) mmol/L Anion Gap 18 (12-20) BUN 25 H (9-16) mg/dL Creatinine 1.24 (0.5-1.4) mg/dL Estim Creat Clear Calc 41.2 Estimated GFR 42 POC Glucose 100 (60-115) mg/dL Random Glucose 111 (60-115) mg/dL Calcium 8.7 D (8.4-10.2) mg/dL Magnesium 1.1 L* (1.6-2.6) mg/dL Total Bilirubin 0.5 (0.0-1.0) mg/dL AST 30 (5-31) U/L ALT 21 (0-31) U/L Alkaline Phosphatase 125 H (39-117) U/L Troponin I High Sens 10.8 (<3.5-17.0) ng/L Total Protein 7.6 (6.5-8.0) g/dL Albumin 4.0 (3.5-5.0) g/dL Urine Color Yellow Urine Appearance Clear Urine pH 6.0 (5.0-9.0) Ur Specific [place] 1.020 (1.005-1.025) Urine Protein 300 (3+) H (Neg-Trace) mg/dL Urine Glucose (UA) Negative (Negative) mg/dL Urine Ketones Negative (Negative) mg/dL Urine Blood Negative (Negative) Urine Nitrite Negative (Negative) Ur Leukocyte Esterase Negative (Negative) Urine RBC 0-2 (0-2) /HPF Urine WBC 0-5 (0-5) /HPF Ur Squamous Epith Cells 0-2 (0-2) /HPF Urine Bacteria None Seen (None Seen) Hyaline Casts 3-5 (0-2) /LPF Ethyl Alcohol < 10 mg/dL Influenza Type A (PCR) (Negative) Influenza Type B (PCR) (Negative) RSV RNA Qual (PCR) (Negative) SARS-CoV-2 RNA (RT-PCR) (Negative) 07/18/25 Range/Units 13:19 WBC (4.8-10.8) X10*3/uL RBC (4.20-5.50) X10*6/uL Hgb (12.0-16.0) g/dl Hct (37.0-47.0) % MCV (80.0-98.0) fL MCH (27.0-33.0) pg MCHC (31.0-35.0) g/dl RDW (11.0-16.0) % Plt Count (160-400) X10*3/uL MPV (9.4-12.3) fL Immature Gran % (Auto) (0.0-0.4) % Neut % (Auto) (45-73) % Lymph % (Auto) (20-40) % [place] % (Auto) (2-11) % Eos % (Auto) (0-4) % Baso % (Auto) (0-2) % Lymph # (Auto) (1.2-4.9) X10*3/uL [place] # (Auto) (0.1-1.2) X10*3/uL Eos # (Auto) (0.0-0.4) X10*3/uL Baso # (Auto) (0.0-0.2) X10*3/uL Abs Immat Gran (auto) (0.00-0.03) X10*3/uL Absolute Neuts (auto) (2.0-8.3) x10*3/uL Absolute Nucleated RBC (0.0-0.012) X10*3/uL Nucleated RBC % (auto) (0.0-0.2) /100WBC PT (10.9-12.4) SEC INR (0.9-1.1) Sodium (135-145) mmol/L Potassium (3.3-5.1) mmol/L Chloride (96-108) mmol/L Carbon Dioxide (22-29) mmol/L Anion Gap (12-20) BUN (9-16) mg/dL Creatinine (0.5-1.4) mg/dL Estim Creat Clear Calc Estimated GFR POC Glucose (60-115) mg/dL Random Glucose (60-115) mg/dL Calcium (8.4-10.2) mg/dL Magnesium (1.6-2.6) mg/dL Total Bilirubin (0.0-1.0) mg/dL AST (5-31) U/L ALT (0-31) U/L Alkaline Phosphatase (39-117) U/L Troponin I High Sens (<3.5-17.0) ng/L Total Protein (6.5-8.0) g/dL Albumin (3.5-5.0) g/dL Urine Color Urine Appearance Urine pH (5.0-9.0) Ur Specific [place] (1.005-1.025) Urine Protein (Neg-Trace) mg/dL Urine Glucose (UA) (Negative) mg/dL Urine Ketones (Negative) mg/dL Urine Blood (Negative) Urine Nitrite (Negative) Ur Leukocyte Esterase (Negative) Urine RBC (0-2) /HPF Urine WBC (0-5) /HPF Ur Squamous Epith Cells (0-2) /HPF Urine Bacteria (None Seen) Hyaline Casts (0-2) /LPF Ethyl Alcohol mg/dL Influenza Type A (PCR) NEGATIVE (Negative) Influenza Type B (PCR) NEGATIVE (Negative) RSV RNA Qual (PCR) NEGATIVE (Negative) SARS-CoV-2 RNA (RT-PCR) NEGATIVE (Negative) Independent Interpretation I performed an independent interpretation of an: EKG Interpretation: EKG at 13:39 showed normal sinus rhythm at 76 beats per minute. Her QTC interval is 515 milliseconds. Overall the morphology of the EKG is similar to her previous EKG. Discharge Plan Discharge Clinical Impression: Fall Qualifiers: Encounter type: initial encounter Qualified Code(s): W19.XXXA - Unspecified fall, initial encounter Closed fracture of left proximal humerus Qualifiers: Encounter type: initial encounter Fracture morphology: other fracture Fracture alignment: displaced Qualified Code(s): S42.292A - Other displaced fracture of upper end of left humerus, initial encounter for closed fracture Multiple myeloma Qualifiers: Multiple myeloma remission status: unspecified Qualified Code(s): C90.00 - Multiple myeloma not having achieved remission Fracture of fifth metacarpal bone of left hand Qualifiers: Encounter type: subsequent encounter Fracture type: closed Metacarpal location: unspecified portion of metacarpal Fracture alignment: nondisplaced Patient Disposition: Xfer Inpatient Rehab Fac Transfer Details: TO: [facility], [address], [place], [place], [phone] Prescriptions: No Action levothyroxine 75 mcg tablet 100 mcg PO DAILY@0600 mirtazapine 30 mg tablet 30 mg PO BEDTIME aspirin 81 mg tablet,chewable 81 mg PO DAILY fluoxetine 40 mg capsule 1 cap PO DAILY calcium carbonate [Oyster Shell Calcium 500] 500 mg calcium (1,250 mg) Tablet 500 mg PO TID 30 Days Qty: 90 0RF trazodone 50 mg tablet 12.5 mg PO BID sodium bicarbonate 650 mg Tablet 650 mg PO TID Qty: 90 0RF lidocaine 5 % cream 1 appl topical BID magnesium 250 mg tablet 250 mg PO DAILY Qty: 7 0RF loperamide 2 mg Tablet 2 mg PO Q4H PRN (Reason: Loose Stool) Rx Instructions: administer after each loose stool until symptoms controlled; do not exceed 8 mg per 24 hrs ibuprofen 600 mg tablet 600 mg PO Q8H PRN (Reason: fever or pain) Qty: 20 0RF Referrals: [facility] [Outside] Erika Morris MD [Primary Care Provider, Internal Medicine] Print Language: Chinese
[2025-07-17 14:02] LABS: MANUAL DIFF FLAG NO
[2025-07-17 14:05] LABS: Hematocrit 30.7 % (37.0-47.0); Hemoglobin 10.1 g/dl (12.0-16.0); Imm Gran Abs Auto 0.10 X10*3/uL (0.00-0.03); Imm Gran Pct Auto 0.7 % (0.0-0.4); Lymphocytes Absolute Auto 1.3 X10*3/uL (1.2-4.9); Mean Corpuscular HGB Conc 32.9 g/dl (31.0-35.0); Mean Corpuscular Hemoglobin 27.7 pg (27.0-33.0); Mean Corpuscular Volume 84.3 fL (80.0-98.0); NRBC Abs Auto 0.000 X10*3/uL (0.0-0.012); NRBC Pct Auto 0.0 /100WBC (0.0-0.2); Platelet Count 196 X10*3/uL (160-400); Red Blood Count 3.64 X10*6/uL (4.20-5.50); White Blood Count 13.6 X10*3/uL (4.8-10.8)
[2025-07-17 14:09] LABS: INTERNATIONAL NORM RATIO 1.0 (0.9-1.1); Prothrombin Time 11.8 SEC (10.9-12.4)
[2025-07-17 14:25] LABS: Troponin-I High Sensitivity 10.8 ng/L (<3.5-17.0)
[2025-07-17 14:39] LABS: Alanine Aminotransferase 21 U/L (0-31); Albumin Level 4.0 g/dL (3.5-5.0); Alkaline Phosphatase 125 U/L (39-117); Anion Gap 18 (12-20); Aspartate Amino Transferase 30 U/L (5-31); Blood Urea Nitrogen 25 mg/dL (9-16); Calcium 8.7 mg/dL (8.4-10.2); Carbon Dioxide 20 mmol/L (22-29); Chloride 110 mmol/L (96-108); Creatinine Clr Calc Pharmacy 41.2; Estimated Glomerular Filt Rate 42; Magnesium 1.1 mg/dL (1.6-2.6); Potassium 3.7 mmol/L (3.3-5.1); Sodium 144 mmol/L (135-145); Total Protein 7.6 g/dL (6.5-8.0)
[2025-07-17] MEDS: Magnesium Sulfate/H2O 2 GM/50 ML PIGGYBACK IV (15:27)
--- NOTE | 2025-07-17 15:41 | PC.NURSE ---
Addendum entered by Megan Valdez RN 07/17/25 16:27: Son at bedside had picture of old list on phone looks like list is 2 years old, med rec completed from picture doses confirmed w/ external pharmacy fill list. 1 med - Revlimid noted on external pharmacy fill not on list Son unable to confirm when patient last took any medications. Son states he has an updated list at home, will bring in when he is able. Original Note: Plan for patient to be PT/CM per Dr. Field, patient states her son has list of meds, will obtain list when son returns.
--- NOTE | 2025-07-17 16:49 | MHC.EDTECH ---
Purewick in place. Pt boosted in bed and sitting comfortably with family at bedside.
--- NOTE | 2025-07-17 16:55 | PC.NURSE ---
Addendum entered by Megan Valdez RN 07/17/25 18:03: Son returned, per son/nephrology social worker patient no longer takes Levimid. Original Note: Patient's family to bring patient's home Levimid Rx into hospital later today.
[2025-07-17 19:34] LABS: Appearance Urine Clear; Glucose Urine UA Negative (Negative); PH 6.0 (5.0-9.0); Specific Gravity - Urine 1.020 (1.005-1.025); UMIC TRIGGER UACC YES
--- NOTE | 2025-07-17 19:43 | PC.NURSE ---
Patient bladder scanned for 380, straight cath for 300 ccs. Transferred onto hospital bed, sling adjusted for comfort. Resting quietly at this time.
[2025-07-17] MEDS: Calcium Oyster Shell Elemental 500 MG TABLET PO (20:41)
[2025-07-17] MEDS: oxyCODONE HCl Immed Release 5 MG TABLET PO (21:09)
--- NOTE | 2025-07-18 01:27 | PC.NURSE ---
pt denied scheduled 0100 Tylenol. stated she has 0 pain at the moment and wants to rest.
--- NOTE | 2025-07-18 05:53 | PC.NURSE ---
RN gave report to RN in overflow. waiting for room to clean up for pt to get transfered.
[2025-07-18] MEDS: oxyCODONE HCl Immed Release 5 MG TABLET PO ×2 (06:00→21:21)
[2025-07-18 06:05] VITALS: BP 185/87; PULSE 69; RESP 18; TEMP 37; O2SAT 95
--- NOTE | 2025-07-18 06:53 | PC.NURSE ---
pt retaining urine- RN asked for OK from provider for christopher placement. approved. 16 [place] christopher placed by RN. Active urine flow.
--- NOTE | 2025-07-18 07:36 | PC.NURSE ---
Report called to Earl WELLINGTON in overflow
--- NOTE | 2025-07-18 07:59 | PHA.MEDREC ---
Pharmacy Consult ? Medication Reconciliation Pharmacy has completed the medication reconciliation. Med rec completed by nursing with family members, reviewed by pharmacy
[2025-07-18 08:17] LABS: Glucose, Whole Blood 100 mg/dL (60-115)
[2025-07-18 08:40] VITALS: BP 162/89; PULSE 66; RESP 16; TEMP 37.2; O2SAT 95
--- NOTE | 2025-07-18 08:45 | PC.NURSE ---
md informed pt c/o 09/03 L shoulder pain, prn oxy having very little effect and SBP 160-180s since admit.
[2025-07-18] MEDS: Calcium Oyster Shell Elemental 500 MG TABLET PO ×3 (10:45→22:33)
[2025-07-18 13:49] VITALS: BP 126/70; PULSE 69; RESP 16; TEMP 37.3; O2SAT 96
--- NOTE | 2025-07-18 14:11 | MHC.CM.ED ---
Received case management consult overnight. Patient came to the ER due to a fall. Work up indicated left humerus fracture and left 5th metacarpal fx. Patient has a sling on her arm and a splint on her hand. Patient was in the ER previously in the week due to a fall and found to have a nasal fracture. Physical therapy eval is ordered but unavailable until tomorrow, Thursday 07/19. Met with patient and son/HCP, Sheyla in regards to discharge planning. Patient lives alone. PCP verified. Copy of HCP verified to be on file. Both are aware PT eval is not available and patient will remains in ER overflow overnight. Patient has been to 1) [facility] and 2) [facility] in the past. 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 Both aware if [facility] and [facility] are unable to offer a bed referral will be broadcasted. Both verbalize understanding. Continue to monitor for d/c needs.
[2025-07-18 14:39] LABS: Resp Syncy Virus RNA Qual PCR NEGATIVE (Negative); SARS COV2 PCR INHOUSE NEGATIVE (Negative)
[2025-07-18 21:16] VITALS: BP 163/75; PULSE 72; RESP 20; TEMP 36.3; O2SAT 96
[2025-07-19 06:00] VITALS: BP 183/70; PULSE 61; RESP 20; TEMP 36.8; O2SAT 98
[2025-07-19] MEDS: oxyCODONE HCl Immed Release 5 MG TABLET PO ×2 (06:25→16:27)
--- NOTE | 2025-07-19 07:48 | PC.NURSE ---
pt alert and oriented x4, She was medicated for 10/10 pain to L arm as noted. She did not take her 1 am apap as she declined to wake up but roused enough to open her eyes and shake her head when offered pain medicine. Ice packs mainteined. Pt slept well overnight with no s/s distress.
--- NOTE | 2025-07-19 07:54 | PC.NURSE ---
Pt with elevated BP this am while stating she was having a lot of pain. pain meds given and bp rechecked after pain improved and down to 103/58. provider notified
[2025-07-19] MEDS: Calcium Oyster Shell Elemental 500 MG TABLET PO ×3 (09:48→20:36)
[2025-07-19 10:12] VITALS: BP 183/70; PULSE 61; O2SAT 98
--- NOTE | 2025-07-19 13:53 | PC.NURSE ---
assist of 2 for pivot transfer back into bed per patient request. positioned for comfort and elevation of left hand. Patient remains in a sling.
[2025-07-19 14:00] VITALS: BP 140/73; PULSE 66; RESP 16; TEMP 36.3; O2SAT 99
--- NOTE | 2025-07-19 15:58 | MHC.CM.PN ---
S/P fall L humerus FX and 5th metacarpal fx. The PT eval has been performed. The recommendation is STR. PT eval scanned into EMR. [facility]st choice is [facility]. They are in review. 2nd choice[facility] offering a bed.
--- NOTE | 2025-07-19 16:23 | PC.NURSE ---
pt has christpoher. about 200ml urine in drainage bag. approved from renetta PIÑA to keep christopher in place for now.
--- NOTE | 2025-07-19 17:54 | MHC.EDTECH ---
Patient bed pad changed, repositioned and valerie changed
[2025-07-19 22:00] VITALS: BP 167/82; PULSE 68; RESP 18; TEMP 37.2; O2SAT 95
[2025-07-20 05:35] VITALS: BP 162/78; PULSE 66; RESP 16; TEMP 36.6; O2SAT 95
[2025-07-20] MEDS: oxyCODONE HCl Immed Release 5 MG TABLET PO ×3 (06:22→21:37)
--- NOTE | 2025-07-20 07:09 | PC.NURSE ---
Pt calm and cooperative. Oriented to self, place and situation. Able to take pills whole with no difficulty. Moura is draining clear yellow urine. Slept for most of the night with no concerns. Awaken this morning reporting left shoulder and knee pain. Medicated as per MAR for comfort. Pt is aware of plan of care. Call means is within reach and bed alarm is on for safety. Monitoring is ongoing.
[2025-07-20] MEDS: Calcium Oyster Shell Elemental 500 MG TABLET PO ×3 (09:00→21:37)
--- NOTE | 2025-07-20 10:41 | PC.NURSE ---
Assumed care of pt approx 0700, resting comfortably in bed with no apparent s/s of distress. Calm and cooperate with care, reports pain releif to LUE with prn mediations. Tolerating regular diet with good PO intake. Moura cath in place as pt was previously retaining urine, draining CYU. Took medications whole with water. Call means placed within reach and pt able to make needs known.
[2025-07-20 13:46] VITALS: BP 147/80; PULSE 62; RESP 16; TEMP 36.6; O2SAT 94
[2025-07-20 15:48] VITALS: BP 154/81; PULSE 65; RESP 14; TEMP 36.6; O2SAT 96
--- NOTE | 2025-07-20 16:41 | MHC.CM.PN ---
Patient has a bed offerfrom [facility]. AN MDS will need to be submitted to [facility]. [facility]st choice does not have a bed to offer today.
[2025-07-20 20:28] VITALS: BP 142/90; PULSE 83; RESP 16; TEMP 36.9; O2SAT 97
[2025-07-20 22:37] VITALS: PULSE 65; RESP 20
--- NOTE | 2025-07-21 01:28 | PC.NURSE ---
07/20/25 2100 PM care provided as patient turned and reposition in bed. Moura cath care provided and barrier cream applied to buttocks for protection. Pt declining use of left arm sling but is wearing hand brace. Skin is intact and left arm with positive CMS. Pain medication offered and provided as documented in EMAR. . VSS.
[2025-07-21 01:53] VITALS: BP 164/78; RESP 20; TEMP 36.9; O2SAT 97
--- NOTE | 2025-07-21 02:02 | PC.NURSE ---
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 Pt oriented to person, place and situation. Reports she has been able to sleep with Oxycodone provided for left shoulder pain. Scheduled Tylenol provided at this time and pt repositioned in the bed. Right wrist IV removed as unable to flush. VSS
[2025-07-21 05:42] VITALS: BP 142/70; PULSE 72; RESP 18; TEMP 36.8; O2SAT 96
[2025-07-21] MEDS: oxyCODONE HCl Immed Release 5 MG TABLET PO (05:45)
[2025-07-21] MEDS: Calcium Oyster Shell Elemental 500 MG TABLET PO ×3 (08:54→20:49)
--- NOTE | 2025-07-21 09:55 | MHC.CM.ED ---
Patient remains in ER overflow. Will d/c to [facility] when [facility] approval obtained from [facility]. MDS and Level 1 sent to [facility] and [facility]. Continue to monitor for d/c needs.
[2025-07-21 13:48] VITALS: BP 108/62; PULSE 62; RESP 16; TEMP 36.1; O2SAT 94
--- NOTE | 2025-07-21 16:21 | MHC.CM.ED ---
CM spoke with son/HCP Marcus with plan for probable discharge tomorrow 07/22 via BLS at 11am.
[2025-07-21 22:00] VITALS: BP 164/90; PULSE 65; RESP 18; TEMP 36.8; O2SAT 97
[2025-07-22] MEDS: oxyCODONE HCl Immed Release 5 MG TABLET PO ×2 (00:48→08:46)
[2025-07-22 06:00] VITALS: BP 152/82; PULSE 68; RESP 18; TEMP 36.5; O2SAT 96
--- NOTE | 2025-07-22 06:14 | PC.NURSE ---
During overnight shift patient removed her christopher catheter in the bed with the balloon intact. Pt. had also removed her arm sling and splint and refused to put sling back on. made aware and plan for bladder scan in the AM. Bladder scanned at 0600 with 126mls of urine. Pt. resting at this time.
[2025-07-22] MEDS: Calcium Oyster Shell Elemental 500 MG TABLET PO (08:47)
[2025-07-22 11:19] VITALS: BP 152/82; PULSE 68; RESP 18; TEMP 36.5; O2SAT 96
== END 2025-07-22 11:00 ==
PROVIDERS: Emergency Provider Emergency Medicine; PCP Internal Medicine
DX: S42.292A Other displaced fracture of upper end of left humerus, initial encounter for closed fracture (principal); S62.307A Unspecified fracture of fifth metacarpal bone, left hand, initial encounter for closed fracture; C90.00 Multiple myeloma not having achieved remission; R26.2 Difficulty in walking, not elsewhere classified; R94.31 Abnormal electrocardiogram [ECG] [EKG]; M79.602 Pain in left arm; W10.9XXA Fall (on) (from) unspecified stairs and steps, initial encounter; Y93.9 Activity, unspecified; Y92.009 Unspecified place in unspecified non-institutional (private) residence as the place of occurrence of the external cause; Y99.8 Other external cause status; Z03.818 Encounter for observation for suspected exposure to other biological agents ruled out; Z79.899 Other long term (current) drug therapy; Z51.81 Encounter for therapeutic drug level monitoring; Z87.891 Personal history of nicotine dependence
CPT/HCPCS: 36415; 71045; 73060; 80053; 80307; 81001; 82947; 83735; 84484; 85025; 85610; 87637; 93005; 96365; 96366; 96367; 97162; 99285; J0131; J3475

== ENCOUNTER → 2025-07-17 13:34 | Outpatient (BNV) | payer MEDICARE, MEDICAID, SELFPAY | PROVIDERS: Emergency Provider Emergency Medicine; Visit Provider Internal Medicine | DX: R94.31 Abnormal electrocardiogram [ECG] [EKG] (principal); W19.XXXA Unspecified fall, initial encounter | CPT/HCPCS: 93010 ==

== ENCOUNTER → 2025-07-17 14:18 | Outpatient (BNV) | payer MEDICARE, MEDICAID, SELFPAY | PROVIDERS: Emergency Provider Emergency Medicine; Visit Provider Radiology Diagnostic Radiology | DX: R07.89 Other chest pain (principal); S42.292A Other displaced fracture of upper end of left humerus, initial encounter for closed fracture | CPT/HCPCS: 71045; 73060 ==

== ENCOUNTER 2025-07-23 10:11 | Outpatient (REF) | payer MEDICARE, MEDICAID, SELFPAY ==
--- OUTSIDE RECORDS SUMMARY | 2025-07-27 11:37 | XMS_ITS | Encounter Summary ---
Author Organization [employer] Address [address] [facility] [address] [place] [address] Care Team Providers Care Cab Supervisor Name Role Phone Erika Morris MD Primary Care Provider + Encounter Details Date Type Department Care Team (Late st Contact Info) Description 07/19/2025 Telephone [facility] MED & PEDS [address] [place] [address] Jaguar Meredith MD [address] [place] [address] Social History Tobacco Use Types Packs/Day Years [...] encounter Miscellaneous Notes * Telephone Encounter - Adele Rodrigues RN - 07/22/2025 2:05 PM EDT [employer] checked, pt. Discharged to [place] this morning. To f/up upon discharge * Telephone Encounter - Adele Rodrigues RN - 07/21/2025 9:40 AM EDT [employer] checked, per last case management note Patient has a bed offerfrom 2nd choice [facility] AN MDS will need to be submitted to [facility]. [facility] does not have a bed to offer today. Will postpone to tomorrow to ensure pt. Was discharged to [facility] * Telephone Encounter - Adele Rodrigues RN - 07/20/2025 2:38 PM EDT [employer] checked, per last case management note S/P fall L humerus FX and 5th metacarpal fx. The PT eval has been performed. The recommendation is[facility]. PT eval scanned into EMR. [facility]st choice is [facility]. They are in review. 2nd choice, [facility] is offering a bed. Will postpone to tomorrow to ensure pt. Was discharged to [facility] * Telephone Encounter - Adele Rodrigues RN - 07/19/2025 2:23 PM EDT Postponing to tomorrow to check on disposition status to home vs rehab * Telephone Encounter - Jaguar Meredith MD - 07/19/2025 1:11 PM EDT Message to Team RN documented in this encounter Plan of Treatment Upcoming Encounters Date Type Department Care Team (Late st Contact Info) Description 08/10/2025 12:00 PM EDT Office Visit [facility] MEDICINE [address] [place] [address] Erika Morris MD [address] [place] [address] documented as of this encounter Visit Diagnoses Not on filedocumented in this encounter Additional Health Concerns Assessment Noted Time PHQ-9 Depression Total Score: 3 06/04/20 25 11:54 AM EDT documented as of this encounter Care Teams Cab Supervisor Relationship Specialty Start Date End Date Erika Morris MD [address] [place] [phone] PCP - General Family Medicine 08/07/18 H[facility]ctor YUAN 10/19/24 documented as of this encounter
--- OUTSIDE RECORDS SUMMARY | 2025-07-27 11:37 | XMS_ITS | Encounter Summary ---
Author Organization [employer] Address [address] [facility] [address] [place] [address] Care Team Providers Care General Education Instructor Name Role Phone Erika Morris MD Primary Care Provider + Reason for Visit * Reason Comments Med Refill Encounter Details Date Type Department Care Team ([facility] st Contact Info) Description 12/16/2023 Refill [facility] MED & PEDS [address] [place], [place] [phone] Erika Morris MD [address] [place] [address] Neoplasm related pain (acute) (chronic) Social History [...] as of this encounter Plan of Treatment Upcoming Encounters Date Type Department Care Team (Late st Contact Info) Description 08/10/2025 12:00 PM EDT Office Visit [facility] MEDICINE [address] [place] [id number] Erika Morris MD [address] [place] [address] [phone] documented as of this encounter Visit Diagnoses Diagnosis Neoplasm related pain (acute) (chronic) documented in this encounter Additional Health Concerns Assessment Noted Time PHQ-9 Depression Total Score: 14 023 10:41 AM EDT documented as of this encounter Care Teams General Education Instructor Relationship Specialty Start Date End Date Erika Morris MD [address] [place] [address] [phone] PCP - General Family Medicine 08/07/18 [facility] 07/16/24 11/08/24 [facility] 10/19/24 documented as of this encounter
--- OUTSIDE RECORDS SUMMARY | 2025-07-27 11:37 | XMS_ITS | Encounter Summary ---
Author Organization [employer] Address [address] [facility] [address] [place] [address] Care Team Providers Care Medical Imaging Specialist Name Role Phone Erika Morris MD Primary Care Provider + Reason for Visit * Reason Comments Med Refill Encounter Details Date Type Department Care Team ([facility] st Contact Info) Description 12/16/2023 Refill [facility] MED & PEDS [address] [place], [place] [phone] Erika Morris MD [address] [place] [address] Neoplasm related pain (acute) (chronic) Social History [...] Description 08/10/2025 12:00 PM EDT Office Visit [facility] MEDICINE [address] [place] [phone] Erika Morris MD [address] [place] [address] [phone] documented as of this encounter Visit Diagnoses Diagnosis Neoplasm related pain (acute) (chronic) documented in this encounter Additional Health Concerns Assessment Noted Time PHQ-9 Depression Total Score: 14 023 10:41 AM EDT documented as of this encounter Care Teams Medical Imaging Specialist Relationship Specialty Start Date End Date Erika Morris MD [address] [place] [address] [phone] PCP - General Family Medicine 08/07/18 [email or web address] 07/16/24 11/08/24 [facility] 10/19/24 documented as of this encounter
--- OUTSIDE RECORDS SUMMARY | 2025-07-27 11:37 | XMS_ITS | Clinical Summary ---
Author Organization [employer] Address [address] [facility] [address] [place] [address] Care Team Providers Care Broiler Supervisor Name Role Phone Erika Morris MD [...] days. 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 Mental status is significantly improved, will [...] follow-up results. I will send Rx to [facility] pharmacy in [facility] if result comes up on the weekend, otherwise antibiotics can be sent to [facility] pharmacy Saturday through Saturday Continue [...] family is working with insurance to increase AVID EDITOR hours. She will use transport wheelchair for longer transfers. Assessment & Plan (08/13/2024 3:13 PM EDT): Will send PT at home as gait has deteriorated since SNF discharge. Discussed with pt and AVID EDITOR/daughter regarding full precautions. Adenomatous polyp of colon [...] Other Recurrent major depression in partial remission ([facility]) Patient ready to address current needs Yes Strengths include motivation to seek behavioral health service PLAN: 1. Follow up with [facility]: Not recommended for follow-up 2. Patient goal [...] Currently off treatment (Lenalidomide was given at [facility]) for at least 1 month[address] Will discuss with Dr. Ernst Simms at next weeks appointment. We discussed with Pt and family regarding preventing falls due to high risk of fractures. Will order home safety evaluation and prescribe DME as needed. Monitor electrolytes Assessment & Plan (03/28/2023 2:09 PM EDT): seems to be stable on denosumab maintenance ever three months FU with [facility] oncology continue close [...] prescription next week continue close fu with [employer] nurse pt unable to void today, reminded [...] Encounters Date Type Department Care Team Description 07/19/2025 Telephone [facility] MED & PEDS [address] [place] [address] Jaguar Meredith MD 07/16/2025 9:00 AM EDT Office Visit [facility] [address] [place] [phone] Jaguar Meredith MD Rib pain on right side (Primary Dx); Closed nondisplaced fracture of proximal phalanx of left little finger, initial encounter 07/16/2025 Results Follow-Up [facility] [address] [place] [phone] Jaguar Meredith MD XR Ribs 3 Views Right with Chest 1 View 07/16/2025 Travel 07/15/2025 Results Follow-Up [facility] MEDICINE [address] [place] [address] [address] Sinus Facial Bones w/o Contrast 07/15/[address] [address] Murray Augustine [place] chart prep 07/13/[address] [address] Erika Morris MD ER Follow-up 07/13/2025 Orders Only GENERIC EXTERNAL DATA DEPARTMENT Provider, Generic External Data 07/12/2025 Orders Only [facility] External Provider, [facility] 06/10/2025 Results Follow-Up [address] [address] Erika Morris MD Culture, Urine, Routine 06/04/2025 12:00 PM EDT Office Visit [address] [address] Erika Morris MD Chronic diarrhea (Primary Dx); Mixed stress and urge urinary incontinence; Hypomagnesemia 06/04/2025 Orders Only [address] [address] Erika Morris MD 06/04/2025 Travel 05/25/[address] [address] Erika Morris MD Nurse Triage 05/22/2025 Orders Only GENERIC EXTERNAL DATA DEPARTMENT Provider, Generic External Data 05/20/[address] [address] Erika Morris MD from Last 3 Months [...] Description 08/10/2025 12:00 PM EDT Office Visit [facility] MEDIC[facility] [address] [place] [address] Erika Morris MD [address] [place], [place] [phone] Health Maintenance Due Date Last Done Comments [...] AM EDT Narrative 07/16/2025 10:47 [place] [address] XRay Report Signed Patient: Altagracia Moe MR#: [id number] : 1945 Acct:[id number] Age/Sex: 79 / F ADM Date: 07/16/25 Loc: HO.HHCX Attending Dr: Jaguar Meredith MD Ordering Physician: Jaguar Meredith MD Date of Service: 07/16/25 Procedure(s): XR ribs RT min 3V w CXR1V Accession Number(s): [id number] cc: Jaguar Meredith MD EXAMINATION: XR RIBS, [...] 07/16/25 1044 DD/ 1010 TD/TT: 07/16/25 1020 Physical Laboratory Assistant: Procedure Note Donotuseinterpreter, Image - 07/16/[address] [address] XRay Report Signed Patient: Ajit Moe#: [id number] : 4Acct:[id number] Age/Sex: 79 / FADM Date: 07/16/25 [facility]: Jaguar Meredith MD Ordering Physician: Jaguar Meredith MD Date of Service: 07/16/25 Procedure(s): XR ribs RT min 3V w CXR1V Accession Number(s): [id number] cc: Jaguar Meredith MD EXAMINATION: XR RIBS, [...] 07/16/25 1044 DD/ 1010 TD/TT: 07/16/25 1020 Physical Laboratory Assistant: Jaguar Meredith MD IMG XR PROCEDURES Final Result * (ABNORMAL) Urinalysis, Complete, with Reflex to Culture (07/13/2025 1:35 AM EDT) Only the most recent of3 resultswithin the time period is included. Color Urine Yellow [facility] Appearance Urine Clear [facility] PH 6.0 5.0 - 9.0 [facility] Glucose Urine UA Negative Negative mg/dL [facility] Urine Blood Negative Negative [facility] Specific [place] - Urine 1.015 1.005 - 1.025 [facility] Urine Protein 100 (2+)(A) Neg-Trace mg/dL [facility] Urine Ketones Negative Negative mg/dL [facility] Nitrite Urine Negative Negative [facility] Leukocyte Esterase Urine Trace(A) Negative [facility] RBC Urine 0-2 0 - 2 /HPF [facility] Urine WBC 0-5 0 - 5 /HPF [facility] Urine Squamous Epithelial Cell 3-5 0 - 2 /HPF [facility] Urine Bacteria 1+ None Seen [facility] Hyaline Casts, Urine 0-2 0 - 2 /LPF [facility] 07/13/2025 1:35 AM EDT 07/13/2025 1:38 AM EDT Narrative [facility] - 07/13/2025 1:50 AM EDT Urine, Clean Catch us Generic External Data Provider LAB URINE ORDERAB LES Final Result [facility] [address] [place] [phone] * CT Sinus Facial Bones w/o Contrast (07/13/2025 12:36 AM EDT) Anatomical Region Laterality Modality Computed Tomogra phy 07/13/2025 12:3 6 AM EDT Narrative 07/13/2025 12:40 AM EDT [address] [address] [address] Scan Report Signed with Addenda Patient: Altagracia Moe MR#: [id number] : 1945 Acct:[id number] Age/Sex: 79 / F ADM Date: 07/12/25 Loc: HO.ED Attending Dr: Ordering Physician: Whitney Shi MD Date of Service: 07/12/25 Procedure(s): CT facial bones wo IV con Accession Number(s): [id number] cc: Erika Morris MD; Whitney Shi MD Report Number: [id number]: Total DLP = 349.00 mGy-cm ADDENDUM This [...] MD in OV> 07/13/2537 DD/ TD/TT: 07/13/2535 Physical Laboratory Assistant: Procedure Note Donotuseinterpreter, Image - 07/13/[address] [address] [address] Scan Report Signed with Addenda Patient: Ajit Moe#: [id number] : 1945cct:[id number] Age/Sex: 79 / FADM Date: 07/12/25 Loc: HO.ED Attending Dr: Ordering Physician: Whitney Shi MD Date of Service: 07/12/25 Procedure(s): CT facial bones wo IV con Accession Number(s): [id number] cc: Erika Morris MD; Whitney Shi MD Report Number: [id number]: Total DLP = 349.00 mGy-cm ADDENDUM This [...] MD in OV> 07/13/2537 DD/ TD/TT: 07/13/2535 Physical Laboratory Assistant: [facility] External Provider IMG CT PROCEDURES Edited Result - Final * CT Cervical Spine w/o Contrast (07/13/2025 12:24 AM EDT) Anatomical Region Laterality Modality Spine, C-spine Computed Tomogra phy 07/13/2025 12:2 4 AM EDT Narrative 07/13/2025 12:26 AM EDT [place] [address] [address] Scan Report Signed Patient: Altagracia Moe MR#: [id number] : 1945 Acct:[id number] Age/Sex: 79 / F ADM Date: 07/12/25 Loc: .ED Attending Dr: Ordering Physician: Whitney Shi MD Date of Service: 07/12/25 Procedure(s): CT cervical spine wo IV con Accession Number(s): [id number] cc: Erika Morris MD; Whitney Shi MD Report Number: [id number]: Total DLP = 342.00 mGy-cm CLINICAL HISTORY: [...] MD in OV> 07/13/2524 DD/ TD/TT: 07/13/2523 Physical Laboratory Assistant: Procedure Note Donotuseinterpreter, Image - 07/13/[address] [address] [address] Scan Report Signed Patient: Altagracia MoeMR#: [id number] : 1945cct:[id number] Age/Sex: 79 / FADM Date: 07/12/25 Loc: HO.ED Attending Dr: Ordering Physician: Whitney Shi MD Date of Service: 07/12/25 Procedure(s): CT cervical spine wo IV con Accession Number(s): [id number] cc: Erika Morris MD; Whitney Shi MD Report Number: [id number]: Total DLP = 342.00 mGy-cm CLINICAL HISTORY: [...] MD in OV> 07/13/2524 DD/ TD/TT: 07/13/2523 Physical Laboratory Assistant: [facility] External Provider IMG CT PROCEDURES Final Result * CT Head w/o Contrast (07/13/2025 12:14 AM EDT) Anatomical Region Laterality Modality Head, Neck Computed Tomogra phy 07/13/2025 12:1 4 AM EDT Narrative 07/13/2025 12:17 AM EDT [address] [address] [address] Scan Report Signed Patient: Altagracia Moe MR#: [id number] : 1945 Acct:[id number] Age/Sex: 79 / F ADM Date: 07/12/25 Loc: HO.ED Attending Dr: Ordering Physician: Whitney Shi MD Date of Service: 07/12/25 Procedure(s): CT head/brain wo IV con Accession Number(s): [id number] cc: Erika Morris MD; Whitney Shi MD Report Number: [id number]: Total DLP = 568.00 mGy-cm CLINICAL HISTORY: [...] in OV> 07/13/25 0015 DD/ TD/TT: 07/13/2513 Physical Laboratory Assistant: Procedure Note Donotuseinterpreter, Image - 07/13/[address] [place] [address] [address] Scan Report Signed Patient: Altagracia MoeMR#: [id number] : 1945cct:[id number] Age/Sex: 79 / FADM Date: 07/12/25 Loc: HO.ED Attending Dr: Ordering Physician: Whitney Shi MD Date of Service: 07/12/25 Procedure(s): CT head/brain wo IV con Accession Number(s): [id number] cc: Erika Morris MD; Whitney Shi MD Report Number: [id number]: Total DLP = 568.00 mGy-cm CLINICAL HISTORY: [...] MD in OV> 07/13/2514 DD/ TD/TT: 07/13/2513 Physical Laboratory Assistant: [facility] External Provider IMG CT PROCEDURES Final Result * XR Fingers 2+ Views Left (07/12/2025 10:00 PM EDT) Anatomical Region Laterality Modality Upper Extremities, Fingers Left Radio graphic Imaging 07/12/2025 10:0 0 PM EDT Narrative 07/12/2025 10:01 PM EDT [place] [address] XRay Report Signed Patient: Altagracia Moe MR#: [id number] : 1945 Acct:[id number] Age/Sex: 79 / F ADM Date: 07/12/25 Loc: .ED Attending Dr: Ordering Physician: Whitney Shi MD Date of Service: 07/12/25 Procedure(s): XR finger LT min 2V Accession Number(s): [id number] cc: Erika Morris MD; Whitney Shi MD [...] in OV> 07/12/252199 DD/ 99 TD/TT: 07/12/252199 Physical Laboratory Assistant: Procedure Note John, Image - 07/12/2025 [place] [address] XRay Report Signed Patient: Ajit Moe#: [id number] : 1945cct:[id number] Age/Sex: 79 / FADM Date: 07/12/25 Loc: .ED Attending Dr: Ordering Physician: Whitney Shi MD Date of Service: 07/12/25 Procedure(s): XR finger LT min 2V Accession Number(s): [id number] cc: Erika Morris MD; Whitney Shi MD [...] in OV> 07/12/252199 DD/ 99 TD/TT: 07/12/252199 Physical Laboratory Assistant: [facility] External Provider IMG XR PROCEDURES Final Result * Culture, Urine, Routine (06/04/2025 12:00 AM EDT) Only the most recent of2 resultswithin the time period is included. Urine Urine specimen obtained by clean catch procedure / Unknown 06/04/2025 06/04/2025 Comment:[facility] Narrative [facility] - 06/06/2025 8:12 AM EDT Klebsiella [...] AL ORDERABLES Final Result Performing Organization Address [facility]/ZIP Co de Phone Number [facility] [address] [place] [phone] * Magnesium (05/22/2025 4:59 PM EDT) Only the most recent of2 resultswithin the time period is included. Magnesium 1.7 1.6 - 2.6 mg/dL [facility] 05/22/2025 4:59 PM EDT 05/22/2025 5:03 PM EDT us Generic External Data Provider LAB BLOOD ORDERAB LES Final Result Performing Organization Address [facility]/ZIP Co de Phone Number [facility] [address] [place] [phone] * High Sensitivity Troponin I (05/22/2025 1:03 PM EDT) TROPONIN I HIGH SENSITIVITY 7.7 <3.5 - 17.0 ng/L [facility] Comment:The Rogers high sens itivity Troponin-I results should beused in conjunction with other diagnostic information suchas ECG, clinical observations and information, and patientsymptoms to aid in the diagnosis of [place]. 05/22/2025 1:03 PM EDT 05/22/2025 1:10 PM EDT Generic External Data Provider LAB BLOOD ORDERAB LES Final Result Performing Organization Address [facility] Co de Phone Number [facility] [address] [place] [phone] * SARS-CoV-2 RNA, Influenza A/B, and RSV RNA, Ql NAAT (05/22/2025 1:03 PM EDT) [facility] Influenza A PCR NEGATIVE Negative [facility] Influenza B PCR NEGATIVE Negative [facility] Resp Syncy Virus RNA Qual PCR NEGATIVE Negative [facility] SARS COV2 PCR NEGATIVE Negative [facility] Comment:All test results mus t [...] use by authorized laboratories.Testing performed on the [employer] GeneXpert utilizingreal-time RT-PCR.All SARS CoV2 and positive influenza A/B results arereported to [facility]. 05/22/2025 1:03 PM EDT 05/22/2025 1:10 PM EDT Generic External Data Provider LAB MICROBIOLOGY - GENERAL ORDERABLES Final Result Performing Organization Address [facility]/ZIP Co de Phone Number [facility] [address] [place] [phone] * (ABNORMAL) CBC auto differential (05/22/2025 1:03 PM EDT) [facility] White Blood Count 10.6 4.8 - 10.8 X10*3/uL [facility] Red Blood Count 3.96(L) 4.20 - 5.50 X10*6/uL [facility] Hemoglobin 10.9(L) 12.0 - 16.0 g/dl [facility] Hematocrit 32.7(L) 37.0 - 47.0 % [facility] Mean Corpuscular Volume 82.6 80.0 - 98.0 fL [facility] Mean Corpuscular Hemoglobin 27.5 27.0 - 33.0 pg [facility] Mean Corpuscular HGB Conc 33.3 31.0 - 35.0 g/dl [facility] Red Cell Distribution Width 15.6 11.0 - 16.0 % [facility] Platelet Count 175 160 - 400 X10*3/uL [facility] Mean Platelet Volume 11.9 9.4 - 12.3 fL [facility] Neutrophils Percent Auto 64.6 45 - 73 % [facility] Imm Gran Pct Auto 1.3(H) 0.0 - 0.4 % [facility] Lymphocytes Percent Auto 18.2(L) 20 - 40 % [facility] Monocytes Percent Auto 9.2 2 - 11 % [facility] Eosinophils Percent Auto 6.2(H) 0 - 4 % [facility] Basophils Percent Auto 0.5 0 - 2 % [facility] NRBC Pct Auto 0.0 0.0 - 0.2 /100WBC [facility] Neutrophils Absolute Auto 6.8 2.0 - 8.3 x10*3/uL [facility] Imm Gran Abs Auto 0.14(H) 0.00 - 0.03 X10*3/uL [facility] Lymphocytes Absolute Auto 1.9 1.2 - 4.9 X10*3/uL [facility] Monocytes Absolute Auto 1.0 0.1 - 1.2 X10*3/uL [facility] Eosinophils Absolute Auto 0.7(H) 0.0 - 0.4 X10*3/uL [facility] Basophils Absolute Auto 0.1 0.0 - 0.2 X10*3/uL [facility] NRBC Abs Auto 0.000 0.0 - 0.012 X10*3/uL [facility] 05/22/2025 1:03 PM EDT 05/22/2025 1:10 PM EDT us Generic External Data Provider LAB BLOOD ORDERAB LES Final Result [facility] [address] [place] [phone] * (ABNORMAL) Comprehensive Metabolic Panel (05/22/2025 1:03 PM EDT) Sodium 145 135 - 145 mmol/L [facility] Potassium 3.3 3.3 - 5.1 mmol/L [facility] Chloride 113(H) 96 - 108 mmol/L [facility] Carbon Dioxide 21(L) 22 - 29 mmol/L [facility] Anion Gap 14 12 - 20 [facility] Urea Nitrogen (BUN) 23(H) 9 - 16 mg/dL [facility] Creatinine, Serum 1.27 0.5 - 1.4 mg/dL [facility] Creatinine Clr Calc Pharmacy 33.5 [facility] Comment:Provided height and weight: 162.56 cm,68.3 kg.eGFR (calculated from the MDRD study equation) and eCrCl(calculated from the Cockcroft-Gault equation) are based ondifferent parameters and may not yield comparable results.If eCrCl result is absurd, please check patient'sheight/weight. Estimated Glomerular Filt Rate 40 [facility] Comment:Chronic Kidney Disea se: Estimated GFR < 60 mL/min/1.53w8Lalclv Kidney Disease: Estimated GFR < 15 mL/min/1.73m2 Glucose 83 60 - 115 mg/dL [facility] Calcium 7.2(L) 8.4 - 10.2 mg/dL [facility] Bilirubin, Total 0.4 0.0 - 1.0 mg/dL [facility] Aspartate Amino Transferase 22 5 - 31 U/L [facility] Alanine Aminotransferase 33(H) 0 - 31 U/L [facility] Total Protein 7.3 6.5 - 8.0 g/dL [facility] Albumin Level 3.8 3.5 - 5.0 g/dL [facility] Alkaline Phosphatase 147(H) 39 - 117 U/L [facility] 05/22/2025 1:03 PM EDT 05/22/2025 1:10 PM EDT us Generic External Data Provider LAB BLOOD ORDERAB LES Final Result [facility] [address] [place] [phone] * (ABNORMAL) Lipid Panel with Reflex to Direct LDL (04/16/2023 11:12 AM EDT) Cholesterol, Total 187 <200 mg/dL [facility] HDL Cholesterol 66 > OR = 50 mg/dL [facility] Triglycerides 98 <150 mg/dL [facility] LDL Cholesterol 102(H) mg/dL (calc) [facility] Comment: Reference range: <100 Desirable range <100 mg/dL for primary prevention; <70 mg/dL for patients with CHD or diabetic patients with > or = 2 CHD risk factors. LDL-C is now calculated using the John-Lourdes calculation, which is a validated novel method providing better accuracy than the Friedewald equation in the estimation of LDL-C. John TAYLOR et al. DOMINIQUE. 2013;310(19): 1328-2948 (http://education.[employer].Orthocon/faq/RRS094) Chol/HDLC Ratio 2.8 <5.0 (calc) [facility] Non-HDL Cholesterol 121 <130 mg/dL (calc) [facility] Comment: For patients with diabetes plus 1 major ASCVD risk factor, treating to a non-HDL-C goal of <100 mg/dL (LDL-C of <70 mg/dL) is considered a therapeutic option. 04/16/2023 11:1 2 AM EDT 04/16/2023 11:13 AM EDT Narrative [facility] - 04/16/2023 10:44 PM EDT FASTING:YES FASTING: YES Erika Morris MD LAB BLOOD ORDERABLES Fin al Result [facility] [address] [facility], [place] [address] [employer] [facility] [address] [place] [phone] from Last 3 Months or Most Recently Relevant to Health Maintenance Insurance MEDICARE [facility] Advance Directives Documents on File Type Date Recorded Patient Freedom Of Information Officer Expl anation Advance Directives and Living Will 07/09/2024 4:07 PM [facility] Proxy Care Teams Broiler Supervisor Relationship Specialty Start Date End Date Erika Morris MD [address] [place] [phone] PCP - General Family Medicine 08[facility]07[facility]
--- OUTSIDE RECORDS SUMMARY | 2025-07-27 11:37 | XMS_ITS | Encounter Summary ---
Author Organization [employer] Address [address] [facility] [address] [place] [address] Care Team Providers Care Sweat Box Attendant Name Role Phone Erika Morris MD Primary Care Provider + Encounter Details Date Type Department Care Team (Late st Contact Info) Description 11/13/2024 Telephone [facility] [address] [place] [address] Erika Morris MD [address] [place], [place] [phone] Social History Tobacco Use Types Packs/Day Years [...] Description 08/10/2025 12:00 PM EDT Office Visit [facility] [address] [place] [address] Erika Mroris MD [address] [place] [phone] documented as of this encounter Visit Diagnoses Not on filedocumented in this encounter Additional Health Concerns Assessment Noted Time PHQ-9 Depression Total Score: 14 023 10:41 AM EDT documented as of this encounter Care Teams Sweat Box Attendant Relationship Specialty Start Date End Date Erika Morris MD [address] [place] [phone] PCP - General Family Medicine 08/07/18 Héctor YUAN 10/19/24 documented as of this encounter
--- OUTSIDE RECORDS SUMMARY | 2025-07-27 11:37 | XMS_ITS | Clinical Summary ---
Author Organization [facility] Address [address] [place] [phone] Phone Care Team Providers Care Child Guidance Counselor Name Role Phone Erika Morris MD Primary [...] of 2 - PCV) 01/07/2020 01/07/2019, 06/28/2014 INFLUENZA VACCINE (#1) 2025 , 09/03/2018, 09/03/2017 COVID-19 VACCINE (3 - 2024-2 6 season) 2025 08/02/2021, 05/23/2021 Adult Td,Tdap Booster 01/07/2029 01/07/2019 [...] topic Medical Devices Not on file Insurance MEDICARE PART A & B MEDICARE PART A & B MEDICARE PART A & B MEDICARE PART A & B MEDICARE PART A & B MEDICARE PART A & B [id number] [id number] [facility] Care Teams Child Guidance Counselor Relationship Specialty Start Date End Date Erika Morris MD [address] [facility] [address] [place] [phone] PCP - General Internal Medicine 06/28/23 July Acuña DDS [address] [place], [place] [phone] Dentistry 07/01/23 Additional Source Comments The information contained in this document represents components of the legal health record. It is not the complete legal health record.[facility]
--- OUTSIDE RECORDS SUMMARY | 2025-07-27 11:37 | XMS_ITS | Encounter Summary ---
Author Organization [employer] Address [address] [facility] [address] [place] [address] Care Team Providers Care Or Rn Name Role Phone Erika Morris MD Primary Care Provider + Reason for Visit * Reason Onset Date Comments Prior Authoroization for consultation 08/30/2023 Encounter Details Date Type Department Care Team ([facility] st Contact Info) Description 08/30/2023 Telephone C ADULT DENTAL [address] [place] [address] July Acuña, DDS [address] [place] [address] Prior Authoroization for consultation Social History Tobacco [...] to message below. Please contact Whitney at [phone] * Telephone Encounter - July Acuña DDS - 08/30/2023 11:19 AM EDT Spoke with pt granddaughter who is in charge of Altagracia, and she explained to me that she received a call from [facility] and they need to speak to the Medical department, not Dental. Advised her to please callthem back for specific instructions and then contact the PCP. * Telephone Encounter - Elina Mills - 08/30/2023 8:51 AM EDT Altagracia Kelley daughter called. She has her consultation in [facility] in [place] . The hospital contacted office in [place], unsure why, asking for a Prior Authorization for her visit over there. Basically they are looking for an ICD10 K08.9 as the reasoning and need for appt. I tried to get as much details as possible from daughter but this is all that she was able to give me. She provided me with 2 phones numbers to reach out for clarification: [phone] and [phone] She also provided a procedure code 20177 unsure if that is for the appt on the day she is going to [facility]. She is not sure what any of [...] Description 08/10/2025 12:00 PM EDT Office Visit [facility] MED[facility]INE [address] [place] [address] Erika Morris MD [address] [place] [address] documented as of this encounter Visit Diagnoses Not on filedocumented in this encounter Additional Health Concerns Assessment Noted Time PHQ-9 Depression Total Score: 14 023 10:41 AM EDT documented as of this encounter Care Teams Or Rn Relationship Specialty Start Date End Date Erika Morris MD [address] [place] [address] PCP - General Family Medicine 08/07/18 [employer] 07/16/24 11/08/24 Héctor YUAN 10/19/24 documented as of this encounter
--- OUTSIDE RECORDS SUMMARY | 2025-07-27 11:37 | XMS_ITS | Encounter Summary ---
Author Organization [employer] Address 75 [facility] 7t [place] [address] Care Team Providers Care Deckhand Clam Dredge Name Role Phone Erika Morris MD Primary Care Provider + Reason for Visit * Reason Onset Date Comments Hospital Follow-up 11/30/2024 Encounter Details Date Type Department Care Team ([facility] st Contact Info) Description 11/30/2024 Telephone [facility] MEDICINE [address] [place] [address] Erika Morris MD [address] [place], [place] [phone] Hospital Follow-up Social History Tobacco Use Types [...] PM EST Tc from Danna requesting a ChatterflyF appt. Hospital: [facility] Date of admission: 11/23/24 Discharge date: 11/27/24 Diagnosed: Calcium and magnesium *Send message to [place] Clinical Care Coordinators documented in this encounter Plan of Treatment Upcoming Encounters Date Type Department Care Team (Late st Contact Info) Description 08/10/2025 12:00 PM EDT Office Visit [facility] MEDICINE [address] [place] [address] Erika Morris MD [address] [place] [address] documented as of this encounter Visit Diagnoses Not on filedocumented in this encounter Additional Health Concerns Assessment Noted Time PHQ-9 Depression Total Score: 14 023 10:41 AM EDT documented as of this encounter Care Teams Deckhand Clam Dredge Relationship Specialty Start Date End Date Erika Morris MD [address] [place], [place] [phone] PCP - General Family Medicine 08/07/18 Héctor YUAN 10/19/24 documented as of this encounter
--- OUTSIDE RECORDS SUMMARY | 2025-07-27 11:38 | XMS_ITS | Encounter Summary ---
Author Organization [employer] Address 75 [facility] 7t [place] [address] Care Team Providers Care Remote Sensing Program Manager Name Role Phone Erika Morris MD Primary Care Provider + Reason for Visit * Reason Onset Date Comments contact oncologist 01/30/2023 Encounter Details Date Type Department Care Team ([facility] st Contact Info) Description 01/30/2023 Telephone C [facility] ADULT D[facility]AL [address] [place], [place] [phone] Nawaf Cueto, DMD [address] [place] [address] contact oncologist Social History Tobacco Use Types [...] number to reach Dr. Sahni On[facility] at [facility] is [phone]. * Telephone Encounter - Elina Mills - [...] Description 08/10/2025 12:00 PM EDT Office Visit [facility] MEDICINE [address] [place] [address] Erika Morris MD [address] [place] [address] documented as of this encounter Visit Diagnoses Not on filedocumented in this encounter Care Teams Remote Sensing Program Manager Relationship Specialty Start Date End Date Erika Morris MD [address] [place] [address] PCP - General Family Medicine 08/07/18 [place] 07/16/24 11/08/24 Héctor YUAN 10/19/24 documented as of this encounter
--- OUTSIDE RECORDS SUMMARY | 2025-07-27 11:38 | XMS_ITS | Clinical Summary ---
Author Organization [facility] Address [address] [place] [address] [address] KULKARNI TAMANNA BIGGS [phone] Phone Care Team Providers Care Plant Guide Name Role Phone Erika Morris MD Primary [...] Visit [facility] [address] [place] [address] Nawaf Guidry MD [address] [facility] [address] [place] [address] Health Maintenance Due Date Last [...] [place] Care Teams Plant Guide Relationship Specialty Start Date End Date Erika Morris MD [address] [place] [address] PCP - General Internal Medicine 11/08/21
--- OUTSIDE RECORDS SUMMARY | 2025-07-27 11:38 | XMS_ITS | Encounter Summary ---
Author Organization [employer] Address 75 [facility] 7[address] [place] [address] Care Team Providers Care Pastoral Counselor Name Role Phone Erika Morris MD Primary Care Provider + Reason for Visit * Reason Comments Med Refill Encounter Details Date Type Department Care Team (Late st Contact Info) Description 05/21/2023 Refill [facility] MEDICINE [address] [place], [place] [phone] Mariia Harper DO [address] [place], [place] [phone] Neoplasm related pain (acute) (chronic) Social History [...] Description 08/10/2025 12:00 PM EDT Office Visit [facility] MEDICINE [address] [place], [place] [phone] Erika Morris MD [address] [place] [address] documented as of this encounter Visit Diagnoses Diagnosis Neoplasm related pain (acute) (chronic) documented in this encounter Additional Health Concerns Assessment Noted Time PHQ-9 Depression Total Score: 14 023 10:41 AM EDT documented as of this encounter Care Teams Pastoral Counselor Relationship Specialty Start Date End Date Erika Morris MD [address] [place] [address] PCP - General Family Medicine 08/07/18 [email or web address] 07/16/24 11/08/24 Héctor YUAN 10/19/24 documented as of this encounter
--- OUTSIDE RECORDS SUMMARY | 2025-07-27 11:38 | XMS_ITS | Encounter Summary ---
Author Organization [email or web address] Address [address] [facility] 7t [place] [address] Care Team Providers Care Acoustical Logging Engineer Name Role Phone Erika Morris MD Primary Care Provider + Encounter Details Date Type Department Care Team (Late st Contact Info) Description 01/30/2024 Telephone [facility] MEDICINE [address] [place], [place] [phone] Erika Morris MD [address] [place], [place] [phone] Social History Tobacco Use Types Packs/Day Years [...] Description 08/10/2025 12:00 PM EDT Office Visit [facility] MED[facility] [address] [place] [address] Erika Morris MD [address] [place] [address] documented as of this encounter Visit Diagnoses Not on filedocumented in this encounter Additional Health Concerns Assessment Noted Time PHQ-9 Depression Total Score: 14 023 10:41 AM EDT documented as of this encounter Care Teams Acoustical Logging Engineer Relationship Specialty Start Date End Date Erika Morris MD [address] [place] [address] PCP - General Family Medicine 08/07/18 [employer] 07/16/24 11/08/24 Héctor VNA 10/19/24 documented as of this encounter
--- OUTSIDE RECORDS SUMMARY | 2025-07-27 11:38 | XMS_ITS | Encounter Summary ---
Author Organization [email or web address] Address [address] [facility] [address] [place] [address] Care Team Providers Care Trouble Lineman Name Role Phone Erika Morris MD Primary Care Provider + Reason for Visit * Reason Comments Med Refill Encounter Details Date Type Department Care Team (Late st Contact Info) Description 05/27/2023 Refill [facility] MED[facility]INE [address] [place], [place] [phone] Mariia Harper DO [address] [place], [place] [phone] Neoplasm related pain (acute) (chronic) Social History [...] 12:00 PM EDT Office Visit [facility] MED[facility]INE [address] [place], [place] [phone] Erika Morris MD [address] [place] [address] documented as of this encounter Visit Diagnoses Diagnosis Neoplasm related pain (acute) (chronic) documented in this encounter Additional Health Concerns Assessment Noted Time PHQ-9 Depression Total Score: 14 023 10:41 AM EDT documented as of this encounter Care Teams Trouble Lineman Relationship Specialty Start Date End Date Erika Morris MD [address] [place] [address] PCP - General Family Medicine 08/07/18 [employer] 07/16/24 11/08/24 Héctor YUAN 10/19/24 documented as of this encounter
--- OUTSIDE RECORDS SUMMARY | 2025-07-27 11:38 | XMS_ITS | Encounter Summary ---
Author Organization [employer] Address 75 [facility] 7t [place] [address] Care Team Providers Care Historic Clothing And Costume Maker Name Role Phone Erika Morris MD Primary Care Provider + Reason for Visit * Reason Comments Med Refill Encounter Details Date Type Department Care Team ([facility] st Contact Info) Description 10/10/2023 Refill [facility] [address] [place], [place] [phone] Erika Morris MD [address] [place] [address] Neoplasm related pain (acute) (chronic) Social History [...] Description 08/10/2025 12:00 PM EDT Office Visit [facility] MEDICINE [address] [place] [address] Erika Morris MD [address] [place] [phone] documented as of this encounter Visit Diagnoses Diagnosis Neoplasm related pain (acute) (chronic) documented in this encounter Additional Health Concerns Assessment Noted Time PHQ-9 Depression Total Score: 14 023 10:41 AM EDT documented as of this encounter Care Teams Historic Clothing And Costume Maker Relationship Specialty Start Date End Date Erika Morris MD [address] [place] [phone] PCP - General Family Medicine 08/07/18 [employer] 07/16/24 11/08/24 [facility] 10/19/24 documented as of this encounter
--- OUTSIDE RECORDS SUMMARY | 2025-07-27 11:38 | XMS_ITS | Clinical Summary ---
Author Organization [address] [facility] Address [address] [place] [address] Phone Care Team Providers Care Solar Applications Development Engineer Name Role Phone Yariel Walton MD Primary Care Provider Encounters Date Type Department Care Team Description 07/24/2025 Lab Requisition [facility] - Main Lab [address] [facility] [place] [address] Yariel Walton MD Multiple myeloma not having achieved remission (CMS/HCC V24, CMS/HCC V28) from Last 3 Months Surgical History Surgery [...] 08/02/2021, 05/23/2021 Cholesterol Screening (Lipid Panel) 09/29/2024 Falls Risk Assessment 09/29/2024 Medicare Annual Wellness Visit 09/29/2024 Osteoporosis Screening (Bone Density Screening) 09/29/2024 Social Influencers of Health Screening 09/29/2024 Depression Screening 11/25/2024 Influenza Vaccine (#1) 2025 , 01/17/2021, 09/03/2018, Additional history exists Hypertension/CHF/CAD Annual BMP Blood Test 10/13/2025 05/22/2025, 10/13/2024, 10/06/2024, Additional history exists DTaP,Tdap,and Td Vaccines (2 [...] LAB CHEMISTRY METHOD 10/13/2024 8:52 AM EST [facility] Potassium 5.4 3.5 - 5.5 mmol/L LAB CHEMISTRY METHOD 10/13/2024 8:52 AM EST [facility] Chloride 109 96 - 110 mmol/L LAB CHEMISTRY METHOD 10/13/2024 8:[address] [facility] CO2 25 21 - 32 mmol/L LAB CHEMISTRY METHOD 10/13/2024 8:[address] [facility] Anion Gap 4 3 - 11 LAB CHEMISTRY METHOD 10/13/2024 8:[address] [facility] Glucose 78 70 - 100 mg/dL LAB CHEMISTRY METHOD 10/13/2024 8:[address] [facility] BUN 33(H) 5 - 25 mg/dL LAB CHEMISTRY METHOD 10/13/2024 8:[address] [facility] Creatinine 1.52(H) 0.50 - 1.10 mg/dL LAB CHEMISTRY METHOD 10/13/2024 8:[address] [facility] eGFR 35(L) >=60 mL/min/1. 73m2 LAB CHEMISTRY METHOD 10/13/2024 8:[address] [facility] Comment:Calculation based on the Chronic Kidney Disease Epidemiology Collaboration (CKD-EPI) equation refit without adjustment for race. BUN/Creatinine Ratio 21.7 LAB CHEMISTRY METHOD 10/13/2024 8:[address] [facility] Calcium 8.3(L) 8.5 - 10.5 mg/dL LAB CHEMISTRY METHOD 10/13/2024 8:[address] [facility] Blood Venous blood specimen / Unknown Venipuncture / Unknown 10/13/2024 5:15 AM EST 10/13/2024 8:18 AM EST us Yariel Walton MD LAB BLOOD ORDERABLES Final R esult [facility] [address] [place] [address], from Last 3 Months or Most Recently Relevant to Health Maintenance Additional Health Concerns Infection Onset Date Last Indicated ESBL 10/03/2024 10/03/2024 Insurance MEDICARE Care Teams Solar Applications Development Engineer Relationship Specialty Start Date End Date Yariel Walton MD [address] [place] [address] PCP - General Family Medicine 10/12/24
--- OUTSIDE RECORDS SUMMARY | 2025-07-27 11:38 | XMS_ITS | Encounter Summary ---
Author Organization [employer] Address [address] [place] [address] Care Team Providers Care Soaking Tank Worker Name Role Phone Yariel Walton MD Primary Care Provider Encounter Details Date Type Department Care Team (Late st Contact Info) Description 10/06/2024 Lab Requisition [facility] - Main Lab [address] [facility] [place] [address] Yariel Walton MD [address] [place] [address] Chronic kidney disease, unspecified; Essential [...] mg/dL LAB CHEMISTRY METHOD 10/06/2024 4:35 PM [facility] Blood Venous blood specimen / Unknown 10/06/2024 5:54 AM EST 10/06/2024 12:07 PM EST us Yariel Walton MD LAB BLOOD ORDERABLES Final R esult [facility] [address] [place] [address], * (ABNORMAL) Basic metabolic panel (10/06/2024 5:54 AM EST) Sodium 135 133 - 145 mmol/L LAB CHEMISTRY METHOD 10/06/2024 4:35 PM [facility] Potassium 5.7(H) 3.5 - 5.5 mmol/L LAB CHEMISTRY METHOD 10/06/2024 4:35 PM [facility] Chloride 106 96 - 110 mmol/L LAB CHEMISTRY METHOD 10/06/2024 4:35 PM [facility] CO2 20(L) 21 - 32 mmol/L LAB CHEMISTRY METHOD 10/06/2024 4:35 PM [facility] Anion Gap 9 3 - 11 LAB CHEMISTRY METHOD 10/06/2024 4:35 PM [facility] Glucose 70 70 - 100 mg/dL LAB CHEMISTRY METHOD 10/06/2024 4:35 PM [facility] BUN 41(H) 5 - 25 mg/dL LAB CHEMISTRY METHOD 10/06/2024 4:35 PM [facility] Creatinine 1.69(H) 0.50 - 1.10 mg/dL LAB CHEMISTRY METHOD 10/06/2024 4:35 PM [facility] eGFR 31(L) >=60 mL/min/1. 73m2 LAB CHEMISTRY METHOD 10/06/2024 4:35 PM [facility] Comment:Calculation based on the Chronic Kidney Disease Epidemiology Collaboration (CKD-EPI) equation refit without adjustment for race. BUN/Creatinine Ratio 24.3 LAB CHEMISTRY METHOD 10/06/2024 4:35 PM EST [facility] Calcium 8.8 8.5 - 10.5 mg/dL LAB CHEMISTRY METHOD 10/06/2024 4:35 PM [facility] Blood Venous blood specimen / Unknown 10/06/2024 5:54 AM EST 10/06/2024 12:07 PM EST us Yariel Walton MD LAB BLOOD ORDERABLES Final R esult [facility] [address] [place] [address], [place] [phone] * (ABNORMAL) Complete blood count (10/06/2024 5:54 AM EST) WBC 9.0 4.8 - 10.8 K/mcL LAB HEMETOLOGY METHOD 10/06/2024 10:44 AM [facility] RBC 3.50(L) 3.80 - 4.80 M/mcL LAB HEMETOLOGY METHOD 10/06/2024 10:44 AM [facility] Hemoglobin 9.2(L) 11.5 - 16.0 g/dL LAB HEMETOLOGY METHOD 10/06/2024 10:44 AM [facility] Hematocrit 29.8(L) 35.0 - 47.0 % LAB HEMETOLOGY METHOD 10/06/2024 10:44 AM [facility] MCV 86.4 79.0 - 98.0 FL LAB HEMETOLOGY METHOD 10/06/2024 10:44 AM [facility] MCH 26.7(L) 27.0 - 32.0 pcg LAB HEMETOLOGY METHOD 10/06/2024 10:44 AM [facility] MCHC 30.9(L) 32.0 - 37.0 g/dL LAB HEMETOLOGY METHOD 10/06/2024 10:44 AM EST [facility] RDW 14.6 11.0 - 15.0 % LAB HEMETOLOGY METHOD 10/06/2024 10:44 AM [facility] Platelets 370 130 - 400 K/mcL LAB HEMETOLOGY METHOD 10/06/2024 10:44 AM [facility] MPV 12.2(H) 7.0 - 11.0 FL LAB HEMETOLOGY METHOD 10/06/2024 10:44 AM [facility] NRBC 0.0 <1.0 % LAB HEMETOLOGY METHOD 10/06/2024 10:44 AM [facility] NRBC Absolute 0.00 <0.10 K/mcL LAB HEMETOLOGY METHOD 10/06/2024 10:44 AM [facility] Blood Venous blood specimen / Unknown Venipuncture / Unknown 10/06/2024 5:54 AM EST 10/06/2024 10:14 AM EST Yariel Walton MD LAB BLOOD ORDERABLES Final R esult [facility] [address] [place] [address], documented in this encounter Visit Diagnoses Diagnosis Chronic kidney disease, unspecified Essential (primary) hypertension Unspecified essential hypertension documented in this encounter Additional Health Concerns Infection Onset Date Last Indicated Resolved Time ESBL 10/03/2024 10/03/2024 documented as of this encounter Care Teams Soaking Tank Worker Relationship Specialty Start Date End Date Yariel Walton MD [address] [place] [address] PCP - General Family Medicine 10/12/24 documented as of this encounter
--- OUTSIDE RECORDS SUMMARY | 2025-07-27 11:38 | XMS_ITS | Encounter Summary ---
Author Organization [employer] Address [address] [facility] 7t [place] [address] Care Team Providers Care Organization Development Consultant Name Role Phone Erika Morris MD Primary Care Provider + Encounter Details Date Type Department Care Team (Late st Contact Info) Description 07/16/2025 Results Follow-Up [facility] [address] [place] [address] Jaguar Meredith MD [address] [place] [address] XR Ribs 3 Views Right with Chest 1 View Social History Tobacco Use Types Packs/Day Years [...] Description 08/10/2025 12:00 PM EDT Office Visit [facility] MEDICINE [address] [place] [address] Erika Morris MD [address] [place] [address] documented as of this encounter Visit Diagnoses Not on filedocumented in this encounter Additional Health Concerns Assessment Noted Time PHQ-9 Depression Total Score: 3 06/04/20 25 11:54 AM EDT documented as of this encounter Care Teams Organization Development Consultant Relationship Specialty Start Date End Date Erika Morris MD [address] [place] [address] PCP - General Family Medicine 08/07/18 [facility] 10/19/24 documented as of this encounter
--- OUTSIDE RECORDS SUMMARY | 2025-07-27 11:38 | XMS_ITS | Encounter Summary ---
Author Organization [employer] Address [address] [facility] 7t [place] [address] Care Team Providers Care Roller Presser Operator Name Role Phone Erika Morris MD Primary Care Provider + Encounter Details Date Type Department Care Team (Late st Contact Info) Description 08/17/2024 Telephone [facility] MED[facility] [address] [place] [address] Erika Morris MD [address] [place], [place] [phone] Social History Tobacco Use Types Packs/Day Years [...] for increase in homemaking hours. I contacted [facility] to discuss with aged or disabled carer Lien Johnson. I left voicemail message with info and request for return call. documented in this encounter Plan of Treatment Upcoming Encounters Date Type Department Care Team (Late st Contact Info) Description 08/10/2025 12:00 PM EDT Office Visit [facility] MED[facility] [address] [place], [place] [phone] Erika Morris MD [address] [place] [address] documented as of this encounter Visit Diagnoses Not on filedocumented in this encounter Additional Health Concerns Assessment Noted Time PHQ-9 Depression Total Score: 14 023 10:41 AM EDT documented as of this encounter Care Teams Roller Presser Operator Relationship Specialty Start Date End Date Erika Morris MD [address] [place] [address] PCP - General Family Medicine 08/07/18 [employer] 07/16/24 11/08/24 [facility] 10/19/24 documented as of this encounter
--- OUTSIDE RECORDS SUMMARY | 2025-07-27 11:38 | XMS_ITS | Encounter Summary ---
Author Organization [employer] Address [address] [place] [address] Care Team Providers Care Ruby On Rails Web Developer Name Role Phone Yariel Walton MD Primary Care Provider Encounter Details Date Type Department Care Team (Late st Contact Info) Description 09/29/2024 Lab Requisition [facility] - Main Lab [address] [facility] [place] [address] Yariel Walton MD [address] [place] [address] Chronic kidney disease, unspecified; Essential [...] phlebotomy fee (09/29/2024 8:48 AM EST) Pathologist [facility] TRAVEL PHLEBOTOMY FEE Completed 09/29/2024 11:02 AM EST [facility] Blood Venous blood specimen / Unknown Venipuncture / Unknown 09/29/2024 8:48 AM EST 09/29/2024 10:37 AM EST Yariel Walton MD LAB BLOOD ORDERABLES Final R esult Performing Organization Address City/[facility]/ZIP Co de Phone Number [facility] [address] [place] [address], [place] [phone] * (ABNORMAL) Magnesium (09/29/2024 8:48 AM EST) [facility] Magnesium 1.6(L) 1.9 - 2.6 mg/dL LAB CHEMISTRY METHOD 09/29/2024 12:01 PM EST [facility] Blood Venous blood specimen / Unknown Venipuncture / Unknown 09/29/2024 8:48 AM EST 09/29/2024 10:37 AM EST Yariel Walton MD LAB BLOOD ORDERABLES Final R esult [facility] [address] [place] [address], [place] [phone] * (ABNORMAL) Basic metabolic panel (09/29/2024 8:48 AM EST) [facility] Sodium 137 133 - 145 mmol/L LAB CHEMISTRY METHOD 09/29/2024 12:01 PM EST [facility] Potassium 4.8 3.5 - 5.5 mmol/L LAB CHEMISTRY METHOD 09/29/2024 12:01 PM [facility] Chloride 108 96 - 110 mmol/L LAB CHEMISTRY METHOD 09/29/2024 12:01 PM EST [facility] CO2 21 21 - 32 mmol/L LAB CHEMISTRY METHOD 09/29/2024 12:01 PM [facility] Anion Gap 8 3 - 11 LAB CHEMISTRY METHOD 09/29/2024 12:01 PM [facility] Glucose 94 70 - 100 mg/dL LAB CHEMISTRY METHOD 09/29/2024 12:01 PM [facility] BUN 40(H) 5 - 25 mg/dL LAB CHEMISTRY METHOD 09/29/2024 12:01 PM [facility] Creatinine 1.29(H) 0.50 - 1.10 mg/dL LAB CHEMISTRY METHOD 09/29/2024 12:01 PM [facility] eGFR 42(L) >=60 mL/min/1. 73m2 LAB CHEMISTRY METHOD 09/29/2024 12:01 PM [facility] Comment:Calculation based on the Chronic Kidney Disease Epidemiology Collaboration (CKD-EPI) equation refit without adjustment for race. BUN/Creatinine Ratio 31.0 LAB CHEMISTRY METHOD 09/29/2024 12:01 PM [facility] Calcium 9.1 8.5 - 10.5 mg/dL LAB CHEMISTRY METHOD 09/29/2024 12:01 PM [facility] Blood Venous blood specimen / Unknown Venipuncture / Unknown 09/29/2024 8:48 AM EST 09/29/2024 10:37 AM EST us Yariel Walton MD LAB BLOOD ORDERABLES Final R esult [facility] [address] [place] [address], * (ABNORMAL) Complete blood count (09/29/2024 8:48 AM EST) WBC 11.7(H) 4.8 - 10.8 K/mcL LAB HEMETOLOGY METHOD 09/29/2024 11:15 AM EST [facility] RBC 3.60(L) 3.80 - 4.80 M/mcL LAB HEMETOLOGY METHOD 09/29/2024 11:15 AM [facility] Hemoglobin 9.7(L) 11.5 - 16.0 g/dL LAB HEMETOLOGY METHOD 09/29/2024 11:15 AM [facility] Hematocrit 31.5(L) 35.0 - 47.0 % LAB HEMETOLOGY METHOD 09/29/2024 11:15 AM [facility] MCV 86.5 79.0 - 98.0 FL LAB HEMETOLOGY METHOD 09/29/2024 11:15 AM [facility] MCH 26.6(L) 27.0 - 32.0 pcg LAB HEMETOLOGY METHOD 09/29/2024 11:15 AM [facility] MCHC 30.8(L) 32.0 - 37.0 g/dL LAB HEMETOLOGY METHOD 09/29/2024 11:15 AM [facility] RDW 15.2(H) 11.0 - 15.0 % LAB HEMETOLOGY METHOD 09/29/2024 11:15 AM [facility] Platelets 270 130 - 400 K/mcL LAB HEMETOLOGY METHOD 09/29/2024 11:15 AM [facility] MPV 12.8(H) 7.0 - 11.0 FL LAB HEMETOLOGY METHOD 09/29/2024 11:15 AM [facility] NRBC 0.0 <1.0 % LAB HEMETOLOGY METHOD 09/29/2024 11:15 AM [facility] NRBC Absolute 0.00 <0.10 K/mcL LAB HEMETOLOGY METHOD 09/29/2024 11:15 AM [facility] Blood Venous blood specimen / Unknown Venipuncture / Unknown 09/29/2024 8:48 AM EST 09/29/2024 10:37 AM EST us Yariel Walton MD LAB BLOOD ORDERABLES Final R esult [facility] [address] [place] [address], documented in this encounter Visit Diagnoses Diagnosis Chronic kidney disease, unspecified Essential (primary) hypertension Unspecified essential hypertension documented in this encounter Additional Health Concerns Infection Onset Date Last Indicated Resolved Time ESBL 10/03/2024 10/03/2024 documented as of this encounter Care Teams Ruby On Rails Web Developer Relationship Specialty Start Date End Date Yariel Walton MD [address] [place] [address] PCP - General Family Medicine 10/12/24 documented as of this encounter
--- OUTSIDE RECORDS SUMMARY | 2025-07-27 11:38 | XMS_ITS | Encounter Summary ---
Author Organization [employer] Address [address] [place] [address] Care Team Providers Care Occupational Therapy Asst Name Role Phone Yariel Walton MD Primary Care Provider Encounter Details Date Type Department Care Team (Late st Contact Info) Description 10/12/[address] [facility] - Main Lab [address] [facility] [place] [address] Yariel Walton MD [address] [place] [address] Chronic kidney disease, unspecified; Essential [...] mg/dL LAB CHEMISTRY METHOD 10/13/2024 8:52 AM [facility] Blood Venous blood specimen / Unknown Venipuncture / Unknown 10/13/2024 5:15 AM EST 10/13/2024 8:18 AM EST us Yariel Walton MD LAB BLOOD ORDERABLES Final R esult [facility] [address] [place] [address], * (ABNORMAL) Basic metabolic panel (10/13/2024 5:15 AM EST) Sodium 138 133 - 145 mmol/L LAB CHEMISTRY METHOD 10/13/2024 8:52 AM [facility] Potassium 5.4 3.5 - 5.5 mmol/L LAB CHEMISTRY METHOD 10/13/2024 8:52 AM [facility] Chloride 109 96 - 110 mmol/L LAB CHEMISTRY METHOD 10/13/2024 8:52 AM [facility] CO2 25 21 - 32 mmol/L LAB CHEMISTRY METHOD 10/13/2024 8:52 AM [facility] Anion Gap 4 3 - 11 LAB CHEMISTRY METHOD 10/13/2024 8:52 AM [facility] Glucose 78 70 - 100 mg/dL LAB CHEMISTRY METHOD 10/13/2024 8:52 AM [facility] BUN 33(H) 5 - 25 mg/dL LAB CHEMISTRY METHOD 10/13/2024 8:52 AM [facility] Creatinine 1.52(H) 0.50 - 1.10 mg/dL LAB CHEMISTRY METHOD 10/13/2024 8:52 AM [facility] eGFR 35(L) >=60 mL/min/1. 73m2 LAB CHEMISTRY METHOD 10/13/2024 8:52 AM [facility] Comment:Calculation based on the Chronic Kidney Disease Epidemiology Collaboration (CKD-EPI) equation refit without adjustment for race. BUN/Creatinine Ratio 21.7 LAB CHEMISTRY METHOD 10/13/2024 8:52 AM EST [facility] Calcium 8.3(L) 8.5 - 10.5 mg/dL LAB CHEMISTRY METHOD 10/13/2024 8:52 AM [facility] Blood Venous blood specimen / Unknown Venipuncture / Unknown 10/13/2024 5:15 AM EST 10/13/2024 8:18 AM EST us Yariel Walton MD LAB BLOOD ORDERABLES Final R esult [facility] [address] [place] [address], [place] [phone] * (ABNORMAL) Complete blood count (10/13/2024 5:15 AM EST) WBC 6.8 4.8 - 10.8 K/mcL LAB HEMETOLOGY METHOD 10/13/2024 8:28 AM [facility] RBC 3.10(L) 3.80 - 4.80 M/mcL LAB HEMETOLOGY METHOD 10/13/2024 8:28 AM [facility] Hemoglobin 8.2(L) 11.5 - 16.0 g/dL LAB HEMETOLOGY METHOD 10/13/2024 8:28 AM [facility] Hematocrit 27.7(L) 35.0 - 47.0 % LAB HEMETOLOGY METHOD 10/13/2024 8:28 AM [facility] MCV 89.4 79.0 - 98.0 FL LAB HEMETOLOGY METHOD 10/13/2024 8:28 AM [facility] MCH 26.5(L) 27.0 - 32.0 pcg LAB HEMETOLOGY METHOD 10/13/2024 8:28 AM [facility] MCHC 29.6(L) 32.0 - 37.0 g/dL LAB HEMETOLOGY METHOD 10/13/2024 8:28 AM EST [facility] RDW 14.9 11.0 - 15.0 % LAB HEMETOLOGY METHOD 10/13/2024 8:28 AM [facility] Platelets 290 130 - 400 K/mcL LAB HEMETOLOGY METHOD 10/13/2024 8:28 AM [facility] MPV 11.7(H) 7.0 - 11.0 FL LAB HEMETOLOGY METHOD 10/13/2024 8:28 AM EST [facility] NRBC 0.0 <1.0 % LAB HEMETOLOGY METHOD 10/13/2024 8:28 AM [facility] NRBC Absolute 0.00 <0.10 K/mcL LAB HEMETOLOGY METHOD 10/13/2024 8:28 AM [facility] Blood Venous blood specimen / Unknown Venipuncture / Unknown 10/13/2024 5:15 AM EST 10/13/2024 8:18 AM EST Yariel Walton MD LAB BLOOD ORDERABLES Final R esult [facility] [address] [place] [address], documented in this encounter Visit Diagnoses Diagnosis Chronic kidney disease, unspecified Essential (primary) hypertension Unspecified essential hypertension documented in this encounter Additional Health Concerns Infection Onset Date Last Indicated Resolved Time ESBL 10/03/2024 10/03/2024 documented as of this encounter Care Teams Occupational Therapy Asst Relationship Specialty Start Date End Date Yariel Walton MD [address] [place] [address] PCP - General Family Medicine 10/12/24 documented as of this encounter
--- OUTSIDE RECORDS SUMMARY | 2025-07-27 11:38 | XMS_ITS | Encounter Summary ---
Author Organization [employer] Address [address] [place] [address] Care Team Providers Care Insurance And Financial Services Agent Name Role Phone Yariel Walton MD Primary Care Provider Encounter Details Date Type Department Care Team (Late st Contact Info) Description 10/04/2024 Lab Requisition [facility] - Main Lab [address] [place] [address] Yariel Walton MD [address] [place] [address] Urinary tract infection, site not [...] reflex microscopic (10/03/2024 5:26 PM EST) Specific [place] Urine 1.016 1.003 - 1.030 LAB URINALYSIS - AUTOMATED METHOD 10/04/2024 1:53 PM [facility] pH, Urine 5.5 5.0 - 8.0 pH LAB URINALYSIS - AUTOMATED METHOD 10/04/2024 1:53 PM [facility] Leukocytes, Urine Large(A) Negative LAB URINALYSIS - AUTOMATED METHOD 10/04/2024 1:53 PM [facility] Nitrite, Urine Negative Negative LAB URINALYSIS - AUTOMATED METHOD 10/04/2024 1:53 PM [facility] Protein, Urine 100(A) <=Trace mg/dL LAB URINALYSIS - AUTOMATED METHOD 10/04/2024 1:53 PM [facility] Glucose, Urine Negative Negative mg/dL LAB URINALYSIS - AUTOMATED METHOD 10/04/2024 1:53 PM [facility] Ketones, Urine Negative Negative mg/dL LAB URINALYSIS - AUTOMATED METHOD 10/04/2024 1:53 PM [facility] Urobilinogen , Urine 0.2 0.2 - 1.0 mg/dL LAB URINALYSIS - AUTOMATED METHOD 10/04/2024 1:53 PM [facility] Bilirubin, Urine Negative Negative LAB URINALYSIS - AUTOMATED METHOD 10/04/2024 1:53 PM [facility] Blood, Urine Large(A) Negative LAB URINALYSIS - AUTOMATED METHOD 10/04/2024 1:53 PM [facility] RBC, Urine 278(H) 0 - 4 /HPF LAB URINALYSIS - AUTOMATED METHOD 10/04/2024 1:53 PM [facility] WBC, Urine 3,664.2(H) 0 - 4 /HPF LAB URINALYSIS - AUTOMATED METHOD 10/04/2024 1:53 PM [facility] Squamous Epithelial, Urine >100(H) 0 - 60 /LPF LAB URINALYSIS - AUTOMATED METHOD 10/04/2024 1:53 PM EST [facility] Bacteria, Urine Many(A) Negative /HPF LAB URINALYSIS - AUTOMATED METHOD 10/04/2024 1:53 PM EST [facility] Hyaline Casts, Urine 4.6(H) 0 - 3 /LPF LAB URINALYSIS - AUTOMATED METHOD 10/04/2024 1:53 PM EST [facility] Urine Urine specimen obtained by clean catch procedure / Unknown 10/03/2024 5:26 PM EST 10/04/2024 12:35 PM EST us Yariel Walton MD LAB URINE ORDERABLES Final R esult [facility] [address] [place] [address], [place] [phone] * (ABNORMAL) Culture urine (10/03/2024 5:26 PM EST) Culture, Urine >100,000 CFU/mL Escherichia coli ESBL(A) ADRIÁN 10/07/2024 8:02 AM EST [facility] Comment: THIS ORGANISM IS POSITIVE FOR EXTENDED SPECTRUM BETA-LACTAMASE (ESBL). EXTENDED SPECTRUM BETA-LACTAMASE PRODUCING ORGANISMS DEMONSTRATE DECREASED ACTIVITY WITH PENICILLILNS, CEPHALOSPORINS AND AZTREONAM. Edited result: Previously reported as Escherichia coli on 10/06/2024 at 1131 EST. Urine Urine specimen obtained by clean catch procedure / Unknown 10/03/2024 5:26 PM EST 10/04/2024 12:35 PM EST Narrative [facility] - 10/07/2024 8:02 AM EST Additional [...] MICROBIOLOGY - GENERAL O RDERABLES Final Result [facility]) [facility] [address] [place] [address], documented in this encounter Visit Diagnoses Diagnosis Urinary tract infection, site not specified documented in this encounter Additional Health Concerns Infection Onset Date Last Indicated Resolved Time ESBL 10/03/2024 10/03/2024 documented as of this encounter Care Teams Insurance And Financial Services Agent Relationship Specialty Start Date End Date Yariel Walton MD [address] [place] [address] PCP - General Family Medicine 10/12/24 documented as of this encounter
--- OUTSIDE RECORDS SUMMARY | 2025-07-27 11:38 | XMS_ITS | Encounter Summary ---
Author Organization [facility] Address [address] [place] [address] Care Team Providers Care Cone Baker Machine Name Role Phone Yariel Walton MD Primary Care Provider Encounter Details Date Type Department Care Team (Late st Contact Info) Description 10/19/2024 Lab Requisition [facility] - Main Lab [address] [facility] [place] [address] Yariel Walton MD [address] [place] [address] Chronic kidney disease, unspecified; Essential (primary) hypertension [...] documented as of this encounter Care Teams Cone Baker Machine Relationship Specialty Start Date End Date Yariel Walton MD [address] [place] [address] PCP - General Family Medicine 10/12/24 documented as of this encounter
--- OUTSIDE RECORDS SUMMARY | 2025-07-27 11:38 | XMS_ITS | Encounter Summary ---
Author Organization [employer] Address [address] [facility] 7[address] [place] [address] Care Team Providers Care Executive Services Administrator Name Role Phone Erika Morris MD Primary Care Provider + Reason for Visit * Reason Comments Med Refill Encounter Details Date Type Department Care Team (Late st Contact Info) Description 07/17/2023 Refill [facility] [address] [place], [place] [phone] Ariadne Panchal MD [address] [place], [place] [phone] Primary insomnia Social History Tobacco Use Types [...] 12:00 PM EDT Office Visit [facility] [address] [place] [phone] Erika Morris MD [address] [place], [place] [phone] documented as of this encounter Visit Diagnoses Diagnosis Primary insomnia Persistent disorder of initiating or maintaining sleep documented in this encounter Additional Health Concerns Assessment Noted Time PHQ-9 Depression Total Score: 14 023 10:41 AM EDT documented as of this encounter Care Teams Executive Services Administrator Relationship Specialty Start Date End Date Erika Morris MD [address] [place] [id number] PCP - General Family Medicine 08/07/18 [employer] 07/16/24 11/08/24 Héctor DOMINGUEZA 10/19/24 documented as of this encounter
--- OUTSIDE RECORDS SUMMARY | 2025-07-27 11:38 | XMS_ITS | Encounter Summary ---
Author Organization [employer] Address [address] [facility] 7t [place] [address] Care Team Providers Care Shank Tapper Name Role Phone Erika Morris MD Primary Care Provider + Encounter Details Date Type Department Care Team (Late st Contact Info) Description 06/10/2025 Results Follow-Up [facility] MED[facility]INE [address] [place] [address] Erika Morris MD [address] [place] [address] Culture, Urine, Routine Social History Tobacco Use Types Packs/Day Years [...] as of this encounter Miscellaneous Notes * Result Encounter Note - Erika Morris MD - 06/10/2025 9:38 AM EDT Urine culture on 06/04/2025, resulted on 06/06/2025 showed Klebsiella UTI. I called patient to the [phone] number but there is no answer so I proceeded to call to the next listed number and spoke Beltran, her grandchild who is listed as alternative contact/HIPAA. I told her the results of the urine cx and the need for Latagracia to start antibiotics and that I was going to send it to the pharmacy. She stated she will call immediately loose and her family to let them know about the POC. documented in this encounter Plan of Treatment Upcoming Encounters Date Type Department Care Team (Late st Contact Info) Description 08/10/2025 12:00 PM EDT Office Visit [facility] [address] [place], [place] [phone] Erika Morris MD [address] [place] [address] documented as of this encounter Visit Diagnoses Not on filedocumented in this encounter Additional Health Concerns Assessment Noted Time PHQ-9 Depression Total Score: 3 06/04/20 25 11:54 AM EDT documented as of this encounter Care Teams Shank Tapper Relationship Specialty Start Date End Date Erika Morris MD [address] [place] [address] PCP - General Family Medicine 08/07/18 Héctor YUAN 10/19/24 documented as of this encounter
--- OUTSIDE RECORDS SUMMARY | 2025-07-27 11:38 | XMS_ITS | Encounter Summary ---
Author Organization [employer] Address [address] [facility] [address] [place] [address] Care Team Providers Care Aircraft Landing Gear Inspector Name Role Phone rEika Morris MD Primary Care Provider + Reason for Visit * Reason Onset Date Comments referralto [facility] 06/25/2023 referral appt [facility] 06/25/2023 Encounter Details Date Type Department Care Team (Late st Contact Info) Description 06/25/2023 Telephone [facility] ADULT DENTAL [address] [place] [address] July Acuña, DDS [address] [place] [address] referralto [facility]; referral appt [facility] Social History [...] AM EDT Tahir called in stating that [facility] is able to get patient in for August for a consulation and then go from there. Bere and rasta would like to know if you are able to script more antibiotics to hold her over until she gets seen. At the same time tthey are looking to see if there is anything you can do to contact [facility] and see if they can get her [...] pick new referral to be seen in [facility] * Telephone Encounter - Elina Mills - 06/25/2023 1:27 PM EDT [facility] say that they do not feel comfortable treating patient with her condition. They are recommending patient get a new referral to [facility] in [place]. documented in this encounter Plan of Treatment Upcoming Encounters Date Type Department Care Team (Late st Contact Info) Description 08/10/2025 12:00 PM EDT Office Visit [facility] MED[facility]INE [address] [place] [address] Erika Morris MD [address] [place], [place] [phone] documented as of this encounter Visit Diagnoses Not on filedocumented in this encounter Additional Health Concerns Assessment Noted Time PHQ-9 Depression Total Score: 14 023 10:41 AM EDT documented as of this encounter Care Teams Aircraft Landing Gear Inspector Relationship Specialty Start Date End Date Erika Morris MD [address] [place] [address] PCP - General Family Medicine 08/07/18 [employer] 07/16/24 11/08/24 Héctor YUAN 10/19/24 documented as of this encounter
--- OUTSIDE RECORDS SUMMARY | 2025-07-27 11:38 | XMS_ITS | Encounter Summary ---
Author Organization [employer] Address [address] [facility] 7[address] [place] [address] Care Team Providers Care Quality Control Engineer Name Role Phone Erika Morris MD Primary Care Provider + Reason for Visit * Reason Onset Date Comments medication 07/12/2023 Encounter Details Date Type Department Care Team (Late st Contact Info) Description 07/12/2023 Telephone [facility] ADULT DENTAL [address] [place] [address] July Acuña, DDS [address] [place] [address] medication Social History Tobacco Use Types Packs/Day [...] antibiotics. She has her consultation visit in [place] in August and has run out of [...] and so following up. Grand daughter number [phone] * Telephone Encounter - Elina Mills - 07/12/2023 3:19 PM EDT Patient was referred to Hospital in [place] for treatment. She has an appt in [...] Description 08/10/2025 12:00 PM EDT Office Visit [facility] MEDICINE [address] [place] [address] Erika Morris MD [address] [place] [address] documented as of this encounter Visit Diagnoses Not on filedocumented in this encounter Additional Health Concerns Assessment Noted Time PHQ-9 Depression Total Score: 14 023 10:41 AM EDT documented as of this encounter Care Teams Quality Control Engineer Relationship Specialty Start Date End Date Erika Morris MD [address] [place] [id number] PCP - General Family Medicine 08/07/18 [employer] 07/16/24 11/08/24 Héctor Nelly 10/19/24 documented as of this encounter
--- OUTSIDE RECORDS SUMMARY | 2025-07-27 11:38 | XMS_ITS | Encounter Summary ---
Author Organization [employer] Address [address] [facility] [address] [place] [address] Care Team Providers Care Head Operator Name Role Phone Erika Morris MD Primary Care Provider + Reason for Visit * Reason Onset Date Comments status 12/07/2022 Encounter Details Date Type Department Care Team (Late st Contact Info) Description 12/07/2022 Telephone [facility] MEDICINE [address] [place] [phone] Erika Morris MD [address] [place], [place] [phone] status Social History Tobacco Use Types Packs/Day [...] Description 08/10/2025 12:00 PM EDT Office Visit [facility] [address] [place] [phone] Erika Morris MD [address] [place], [place] [phone] documented as of this encounter Visit Diagnoses Not on filedocumented in this encounter Care Teams Head Operator Relationship Specialty Start Date End Date Erika Morris MD [address] [place], [place] [phone] PCP - General Family Medicine 08/07/18 [employer] 07/16/24 11/08/24 [facility] 10/19/24 documented as of this encounter
--- OUTSIDE RECORDS SUMMARY | 2025-07-27 11:38 | XMS_ITS | Encounter Summary ---
Author Organization [employer] Address [address] [facility] [address] [place] [address] Care Team Providers Care Grinder Outside Diameter Name Role Phone Erika Morris MD Primary Care Provider + Encounter Details Date Type Department Care Team (Late st Contact Info) Description 07/16/2023 Orders Only [facility] ADULT DENTAL [address] [place] [address] July Acuña DDS [address] [place] [address] Social History Tobacco Use Types Packs/Day Years [...] Description 08/10/2025 12:00 PM EDT Office Visit [facility] MEDICINE [address] [place] [address] Erika Morris MD [address] [place] [address] documented as of this encounter Visit Diagnoses Not on filedocumented in this encounter Additional Health Concerns Assessment Noted Time PHQ-9 Depression Total Score: 14 023 10:41 AM EDT documented as of this encounter Care Teams Grinder Outside Diameter Relationship Specialty Start Date End Date Erika Morris MD [address] [place] [address] PCP - General Family Medicine 08/07/18 [employer] 07/16/24 11/08/24 [facility] 10/19/24 documented as of this encounter
--- OUTSIDE RECORDS SUMMARY | 2025-07-27 11:38 | XMS_ITS | Encounter Summary ---
Author Organization [employer] Address [address] [facility] [address] [place] [address] Care Team Providers Care Shared Services And Outsourcing Manager Name Role Phone Erika Morris MD Primary Care Provider + Reason for Visit * Reason Onset Date Comments Referral 06/04/2023 Encounter Details Date Type Department Care Team (Late st Contact Info) Description 06/04/2023 Telephone [facility] ADULT DENTAL [address] [place] [address] July Acuña DDS [address] [place] [address] Referral Social History Tobacco Use Types Packs/Day [...] encounter Miscellaneous Notes * Telephone Encounter - Julymahsa Acuña DDS - 06/11/2023 8:33 AM EDT Yes it is. To please ask for me once she gets to the office. Thanks, Dr. Hernandez * Telephone Encounter - Elina Mills - 06/11/2023 8:10 AM EDT Daughter called in to confirm if referral for Oral Surgeon is ready for her to come picker packer * Telephone Encounter - Elina Mills - [...] know the recommendations made at the hospital. [phone] Thanks, Dr. Hernandez * Telephone Encounter - [...] request with provider. She is willing to picker packer in office. documented in this encounter Plan of Treatment Upcoming Encounters Date Type Department Care Team (Late st Contact Info) Description 08/10/2025 12:00 PM EDT Office Visit [facility] MEDICINE [address] [place] [address] Erika Morris MD [address] [place], [place] [phone] documented as of this encounter Visit Diagnoses Not on filedocumented in this encounter Additional Health Concerns Assessment Noted Time PHQ-9 Depression Total Score: 14 023 10:41 AM EDT documented as of this encounter Care Teams Shared Services And Outsourcing Manager Relationship Specialty Start Date End Date Erika Morris MD [address] [place] [address] PCP - General Family Medicine 08/07/18 [employer] 07/16/24 11/08/24 [facility] 10/19/24 documented as of this encounter
--- OUTSIDE RECORDS SUMMARY | 2025-07-27 11:38 | XMS_ITS | Encounter Summary ---
Author Organization [employer] Address 75 [facility] 7t [place] [address] Care Team Providers Care Video News Editor Name Role Phone Erika Morris MD Primary Care Provider + Reason for Visit * Reason Comments Med Refill Encounter Details Date Type Department Care Team ([facility] st Contact Info) Description 07/01/2024 Refill [facility] MEDICINE [address] [place], [place] [phone] Erika Morris MD [address] [place], [place] [phone] Social History Tobacco Use Types Packs/Day Years [...] Description 08/10/2025 12:00 PM EDT Office Visit [facility] MEDICINE [address] [place] [address] [phone] Erika Morris MD [address] [place] [phone] documented as of this encounter Visit Diagnoses Not on filedocumented in this encounter Additional Health Concerns Assessment Noted Time PHQ-9 Depression Total Score: 14 023 10:41 AM EDT documented as of this encounter Care Teams Video News Editor Relationship Specialty Start Date End Date Erika Morris MD [address] [place] [address] PCP - General Family Medicine 08/07/18 [employer] 07/16/24 11/08[facility]24 [facility] documented as of this encounter
--- OUTSIDE RECORDS SUMMARY | 2025-07-27 11:38 | XMS_ITS | Encounter Summary ---
Author Organization [facility] Address [address] [place] [address] Care Team Providers Care Ride Assembly Supervisor Name Role Phone Yariel Walton MD Primary Care Provider Encounter Details Date Type Department Care Team (Late st Contact Info) Description 07/24/2025 Lab Requisition [facility] - Main Lab [address] [facility] [place] [address] Yariel Walton MD [address] [place], [place] [phone] Multiple myeloma not having achieved remission (CMS/HCC V24, CMS/[facility] V28) Social History Tobacco Use Types Packs/Day Years [...] as of this encounter Visit Diagnoses Diagnosis Multiple myeloma not having achieved remission (CMS/HCC V24, CMS/[facility] V28) documented in this encounter Additional Health Concerns Infection Onset Date Last Indicated Resolved Time ESBL 10/03/2024 10/03/2024 documented as of this encounter Care Teams Ride Assembly Supervisor Relationship Specialty Start Date End Date Yariel Walton MD [address] [place], [place] [phone] PCP - General Family Medicine 10/12/24 documented as of this encounter
--- OUTSIDE RECORDS SUMMARY | 2025-07-27 11:38 | XMS_ITS | Encounter Summary ---
Author Organization [employer] Address 75 [facility] 7t [place] [address] Care Team Providers Care Chemist Internship Name Role Phone Erika Morris MD Primary Care Provider + Encounter Details Date Type Department Care Team (Late st Contact Info) Description 07/15/2025 Results Follow-Up [facility] MEDICINE [address] [place] [address] Erika Morris MD [address] [place] [address] CT Sinus Facial Bones w/o Contrast Social History Tobacco Use Types Packs/Day Years [...] Encounter Note - Erika Morris MD - 07/15/2025 5:[address] scan of the facial bones on 07/12/2025 reviewed, patient seen in the ER status post fall with nose fracture documented in this encounter Plan of Treatment Upcoming Encounters Date Type Department Care Team (Late st Contact Info) Description 08/10/2025 12:00 PM EDT Office Visit [facility] MEDICINE [address] [place] [address] Erika Morris MD [address] [place] [address] documented as of this encounter Visit Diagnoses Not on filedocumented in this encounter Additional Health Concerns Assessment Noted Time PHQ-9 Depression Total Score: 3 06/04/20 25 11:54 AM EDT documented as of this encounter Care Teams Chemist Internship Relationship Specialty Start Date End Date Erika Morris MD [address] [place] [address] PCP - General Family Medicine 08/07/18 [facility] 10/19/24 documented as of this encounter
--- OUTSIDE RECORDS SUMMARY | 2025-07-27 11:38 | XMS_ITS | Encounter Summary ---
Author Organization [employer] Address 75 [facility] [address] [place] [address] Care Team Providers Care Sill Worker Name Role Phone Erika Morris MD Primary Care Provider + Encounter Details Date Type Department Care Team (Late st Contact Info) Description 12/26/2022 Orders Only [facility] [address] [place] [address] Mariia Lemons LPN Social History Tobacco Use [...] 12:00 PM EDT Office Visit [facility] [address] [place] [address] Erika Morris MD 230 [place] [address] documented as of this encounter Visit Diagnoses Not on filedocumented in this encounter Care Teams Sill Worker Relationship Specialty Start Date End Date Erika Morris MD [address] [place] [address] PCP - General Family Medicine 08/07/18 [employer] 07/16/24 11/08/24 [employer] YUAN 10/19/24 documented as of this encounter
--- OUTSIDE RECORDS SUMMARY | 2025-07-27 11:38 | XMS_ITS | Encounter Summary ---
Author Organization [employer] Address 75 [facility] 7t [place] [address] Care Team Providers Care Key Cutter Name Role Phone Erika Morris MD Primary Care Provider + Reason for Visit * Reason Comments Med Refill Encounter Details Date Type Department Care Team (Late st Contact Info) Description 07/18/2023 Refill [facility] MEDICINE [address] [place], [place] [phone] Ariaden Panchal MD [address] [place], [place] [phone] Primary insomnia Social History Tobacco Use Types [...] 12:00 PM EDT Office Visit [facility] MED[facility] [address] [place] [address] [phone] Erika Morris MD [address] [place], [place] [phone] documented as of this encounter Visit Diagnoses Diagnosis Primary insomnia Persistent disorder of initiating or maintaining sleep documented in this encounter Additional Health Concerns Assessment Noted Time PHQ-9 Depression Total Score: 14 023 10:41 AM EDT documented as of this encounter Care Teams Key Cutter Relationship Specialty Start Date End Date Erika Morris MD [address] [place] [address] PCP - General Family Medicine 08/07/18 [employer] 07/16/24 11/08/24 Héctor DOMINGUEZA 10/19/24 documented as of this encounter
== END 2025-07-23 10:12 | disposition home or self-care (01) ==
LOC: HO.HOSX 10:11
DX: Z13.89 Encounter for screening for other disorder (principal)

== ENCOUNTER 2025-08-23 12:43 | Outpatient (REF) | payer MEDICARE, MEDICAID, SELFPAY ==
--- NOTE | ~2025-08-23 | XR_ITS ---
EXAMINATION: XR SHOULDER, LEFT CLINICAL INFORMATION: M25.512 - Pain in left shoulder COMPARISON: May 16, 2020 TECHNIQUE: AP and Y-view projection of the left shoulder. FINDINGS: Limited examination demonstrated a comminuted cortical displaced fracture through the left humeral neck with anterior and medial position of the distal fragment. The scapula and clavicle appear intact. There is callus formation in the posterior lateral aspect of the left forearm and left face ribs. XR/XR shoulder LT min 2V IMPRESSION: Acute anterior medially displaced comminuted fracture left humeral neck. Findings communicated via [employer] to the physician nurse practitioner physicians assistant Cas Hawthorne on August 23, 2025 2:37 PM Electronically signed by: Sixto Gallo MD 08/23/2025 02:40 PM EDT
--- NOTE | ~2025-08-23 | XR_ITS ---
EXAMINATION: XR HAND, LEFT CLINICAL INFORMATION: M79.642 - Pain in left hand COMPARISON: 07/12/2025. TECHNIQUE: PA, lateral, and oblique views of the left hand. FINDINGS: Redemonstration of comminuted spiral fracture of the fifth digit proximal phalanx, essentially nondisplaced. Fracture lines are still visible with minimal sclerosis along the margins indicating early healing. No bridging bony callus seen. No change in anatomical alignment. In addition there is a near completely healed fracture of the distal fifth metacarpal with abundant bony callus formation and sclerosis of the fracture lines. This is unchanged in alignment when compared with the prior exam. XR/XR hand LT min 3V IMPRESSION: 1. Comminuted spiral fracture fifth digit proximal phalanx with evidence of very early healing. Stable anatomical alignment. 2. There is a near completely or completely healed fracture of the fifth distal metacarpal. Electronically signed by: Sebastián Bradford MD 08/23/2025 02:42 PM EDT
--- OUTSIDE RECORDS SUMMARY | 2025-08-23 13:50 | XMS_ITS | Clinical Summary ---
Author Organization [employer] Address [address] [facility] 7t [place] [address] Care Team Providers Care Snag Grinder Name Role Phone Erika Morris MD Primary [...] electrolyte imbalance, corrected Pt has underlying microvascular LEATHER COLORER compromise. Mental status is significantly improved, will [...] follow-up results. I will send Rx to [facility] pharmacy in [facility] if result comes up on the weekend, otherwise antibiotics can be sent to [facility] pharmacy Saturday through Saturday Continue wearing pull-ups, [...] family is working with insurance to increase MOLD REPAIR TECHNICIAN hours. She will use transport wheelchair for longer transfers. Assessment & Plan (08/13/2024 3:13 PM EDT): Will send PT at home as gait has deteriorated since SNF discharge. Discussed with pt and MOLD REPAIR TECHNICIAN/daughter regarding full precautions. Adenomatous polyp of colon [...] Other Recurrent major depression in partial remission ([facility]) Patient ready to address current [...] for safety Stage 3 chronic kidney disease (CMS/HCC) 022 Assessment & Plan (03/28/2023 2:12 PM EDT): [...] Currently off treatment (Lenalidomide was given at [facility]) for at least 1 month. Will discuss with Dr. Ernst Simms at next weeks appointment. We discussed with Pt and family regarding preventing falls due to high risk of fractures. Will order home safety evaluation and prescribe DME as needed. Monitor electrolytes Assessment & Plan (03/28/2023 2:09 PM EDT): seems to be stable on denosumab maintenance ever three months FU with [facility] oncology continue close follow up with oncology [...] prescription next week continue close fu with [facility] nurse pt unable to void today, reminded [...] Encounters Date Type Department Care Team Description 08/10/2025 Telephone [facility] MEDICINE [address] [place] [phone] Erika Morris MD Chart prep 07/19/2025 Telephone [facility] CHC MED & PEDS [address] [place] [address] Jaguar Meredith MD 07/16/2025 9:00 AM EDT Office Visit [facility] WALK-IN CENTER [address] [place], [place] [phone] Jaguar Meredith MD Rib pain on right side (Primary Dx); Closed nondisplaced fracture of proximal phalanx of left little finger, initial encounter 07/16/2025 Results Follow-Up [facility] WALK-IN CENTER [address] [place] [address] Jaguar Meredith MD XR Ribs 3 Views Right with Chest 1 View 07/16/2025 Travel 07/15/2025 Results Follow-Up [address] [address] Sinus Facial Bones w/o Contrast 07/15/[address] [address] [place] chart prep 07/13/[address] [address] Erika Morris MD ER Follow-up 07/13/2025 Orders Only GENERIC EXTERNAL DATA DEPARTMENT Provider, Generic External Data 07/12/2025 Orders Only [facility] External Provider, [facility] 06/10/2025 Results Follow-Up [address] [address] Erika Morris MD Culture, Urine, Routine 06/04/2025 12:00 PM EDT Office Visit [address] [address] Erika Morris MD Chronic diarrhea (Primary Dx); Mixed stress and urge urinary incontinence; Hypomagnesemia 06/04/2025 Orders Only [address] [address] Erika Morris MD 06/04/2025 Travel 05/25/[address] [address] Erika Morris MD Nurse Triage from Last 3 Months Immunizations Immunization Administration [...] 06/04/2025 11:50 AM EDT Plan of Treatment Health Maintenance [...] 06/04/20 SDOH Screening 06/04/2026 06/04/2025 Tobacco Screening 07/16/2026 [...] URINE, ROUTINE Routine 06/04/2025 12:00 AM EDT LIPID PANEL WITH REFLEX [...] AM EDT Narrative 07/16/2025 10:47 AM EDT [address] [address] XRay Report Signed Patient: Altagracia Moe MR#: [id number] : 1945 Acct:[id number] Age/Sex: 79 / F ADM Date: 07/16/25 Loc: RASHARD.KUNCX Attending Dr: Jaguar Meredith MD Ordering Physician: Jaguar Meredith MD Date of Service: 07/16/25 Procedure(s): XR ribs RT min 3V w CXR1V Accession Number(s): [id number] cc: Jaguar Meredith MD EXAMINATION: XR RIBS, [...] 07/16/25 1044 DD/ 1010 TD/TT: 07/16/25 1020 Pressurizer: Procedure Note Donotuseinterpreter, Image - 07/16/[address] [address] XRay Report Signed Patient: Altagracia MoeMR#: [id number] : 1945cct:[id number] Age/Sex: 79 / FADM Date: 07/16/25 Loc: HO.HHCX Attending Dr: Jaguar Meredith MD Ordering Physician: Jaguar Meredith MD Date of Service: 07/16/25 Procedure(s): XR ribs RT min 3V w CXR1V Accession Number(s): [id number] cc: Jaguar Meredith MD EXAMINATION: XR RIBS, [...] 07/16/25 1044 DD/ 1010 TD/TT: 07/16/25 1020 Pressurizer: Jaguar Meredith MD IMG XR PROCEDURES Final Result * (ABNORMAL) Urinalysis, Complete, with Reflex to Culture (07/13/2025 1:35 AM EDT) Only the most recent of2 resultswithin the time period is included. Color Urine Yellow [facility] Appearance Urine Clear [facility] PH 6.0 5.0 - 9.0 [facility] Glucose Urine UA Negative Negative mg/dL [facility] Urine Blood Negative Negative [facility] Specific H[place]reth - Urine 1.015 1.005 - 1.025 [facility] Urine Protein 100 (2+)(A) Neg-Trace mg/dL [facility] Urine Ketones Negative Negative mg/dL [facility] Nitrite Urine Negative Negative [facility] Leukocyte Esterase Urine Trace(A) Negative [facility] RBC Urine 0-2 0 - 2 /HPF [facility] Urine WBC 0-5 0 - 5 /HPF [facility] Urine Squamous Epithelial Cell 3-5 0 - 2 /HPF [facility] Urine Bacteria 1+ None Seen [facility] Hyaline Casts, Urine 0-2 0 - 2 /LPF [facility] 07/13/2025 1:35 AM EDT 07/13/2025 1:38 AM EDT Narrative [facility] - 07/13/2025 1:50 AM EDT Urine, Clean Catch us Generic External Data Provider LAB URINE ORDERAB LES Final Result [facility] [address] [place] [phone] * CT Sinus Facial Bones w/o Contrast (07/13/2025 12:36 AM EDT) Anatomical Region Laterality Modality Computed Tomogra phy 07/13/2025 12:3 6 AM EDT Narrative 07/13/2025 12:40 AM EDT [address] [address] [address] Scan Report Signed with Addenda Patient: Altagracia Moe MR#: [id number] : 1945 Acct:[id number] Age/Sex: 79 / F ADM Date: 07/12/25 Loc: HO.ED Attending Dr: Ordering Physician: Whitney Shi MD Date of Service: 07/12/25 Procedure(s): CT facial bones wo IV con Accession Number(s): [id number] cc: Erika Morris MD; Whitney Shi MD Report Number: [id number]: Total DLP = 349.00 mGy-cm ADDENDUM This [...] MD in OV> 07/13/2537 DD/ TD/TT: 07/13/2535 Pressurizer: Procedure Note Donotuseinterpreter, Image - 07/13/[address] [place] [address] [address] Scan Report Signed with Addenda Patient: Altagracia Moe#: [id number] : 1945cct:[id number] Age/Sex: 79 / FADM Date: 07/12/25 Loc: HO.ED Attending Dr: Ordering Physician: Whitney Shi MD Date of Service: 07/12/25 Procedure(s): CT facial bones wo IV con Accession Number(s): [id number] cc: Erika Morris MD; Whitney Shi MD Report Number: [id number]: Total DLP = 349.00 mGy-cm ADDENDUM This [...] MD in OV> 07/13/2537 DD/ TD/TT: 07/13/2535 Pressurizer: [facility] External Provider IMG CT PROCEDURES Edited Result - Final * CT Cervical Spine w/o Contrast (07/13/2025 12:24 AM EDT) Anatomical Region Laterality Modality Spine, C-spine Computed Tomogra phy 07/13/2025 12:2 4 AM EDT Narrative 07/13/2025 12:26 AM EDT [place] [address] CT Scan Report Signed Patient: Altagracia Moe MR#: [id number] : 1945 Acct:[id number] Age/Sex: 79 / F ADM Date: 07/12/25 Loc: HO.ED Attending Dr: Ordering Physician: Whitney Shi MD Date of Service: 07/12/25 Procedure(s): CT cervical spine wo IV con Accession Number(s): [id number] cc: Erika Morris MD; Whitney Shi MD Report Number: [id number]: Total DLP = 342.00 mGy-cm CLINICAL HISTORY: [...] MD in OV> 07/13/2524 DD/ TD/TT: 07/13/2523 Pressurizer: Procedure Note Donotuseinterpreter, Image - 07/13/[address] [place] [address] [address] Scan Report Signed Patient: Ajit Moe#: [id number] : 4Acct:[id number] Age/Sex: 79 / FADM Date: 07/12/25 Loc: HO.ED Attending Dr: Ordering Physician: Whitney Shi MD Date of Service: 07/12/25 Procedure(s): CT cervical spine wo IV con Accession Number(s): [id number] cc: Erika Morris MD; Whitney Shi MD Report Number: [id number]: Total DLP = 342.00 mGy-cm CLINICAL HISTORY: [...] MD in OV> 07/13/2524 DD/ TD/TT: 07/13/2523 Pressurizer: us [facility] External Provider IMG CT PROCEDURES Final Result * CT Head w/o Contrast (07/13/2025 12:14 AM EDT) Anatomical Region Laterality Modality Head, Neck Computed Tomogra phy 07/13/2025 12:1 4 AM EDT Narrative 07/13/2025 12:17 AM EDT [place] [address] CT Scan Report Signed Patient: Altagracia Moe MR#: [id number] : 1945 Acct:[id number] Age/Sex: 79 / F ADM Date: 07/12/25 Loc: HO.ED Attending Dr: Ordering Physician: Whitney Shi MD Date of Service: 07/12/25 Procedure(s): CT head/brain wo IV con Accession Number(s): [id number] cc: Erika Morris MD; Whitney Shi MD Report Number: [id number]: Total DLP = 568.00 mGy-cm CLINICAL HISTORY: [...] MD in OV> 07/13/2514 DD/ TD/TT: 07/13/2513 Pressurizer: Procedure Note Donotuseinterpreter, Image - 07/13/[address] [address] [address] Scan Report Signed Patient: Altagracia MoeMR#: [id number] : 1945cct:[id number] Age/Sex: 79 / FADM Date: 07/12/25 Loc: HO.ED Attending Dr: Ordering Physician: Whitney Shi MD Date of Service: 07/12/25 Procedure(s): CT head/brain wo IV con Accession Number(s): [id number] cc: Erika Morris MD; Whitney Shi MD Report Number: [id number]: Total DLP = 568.00 mGy-cm CLINICAL HISTORY: [...] MD in OV> 07/13/2514 DD/ TD/TT: 07/13/2513 Pressurizer: [facility] External Provider IMG CT PROCEDURES Final Result * XR Fingers 2+ Views Left (07/12/2025 10:00 PM EDT) Anatomical Region Laterality Modality Upper Extremities, Fingers Left Radio graphic Imaging 07/12/2025 10:0 0 PM EDT Narrative 07/12/2025 10:01 PM EDT [place] [address] XRay Report Signed Patient: Altagracia Moe MR#: [id number] : 1945 Acct:[id number] Age/Sex: 79 / F ADM Date: 07/12/25 Loc: HO.ED Attending Dr: Ordering Physician: Whitney Shi MD Date of Service: 07/12/25 Procedure(s): XR finger LT min 2V Accession Number(s): [id number] cc: Erika Morris MD; Whitney Shi MD [...] in OV> 07/12/252199 DD/ 99 TD/TT: 07/12/252199 Pressurizer: Procedure Note Donotuseinterpreter, Image - 07/12/2025 [place] [address] XRay Report Signed Patient: Altagracia MoeMR#: [id number] : 1945cct:[id number] Age/Sex: 79 / FADM Date: 07/12/25 Loc: .ED Attending Dr: Ordering Physician: Whitney Shi MD Date of Service: 07/12/25 Procedure(s): XR finger LT min 2V Accession Number(s): [id number] cc: Erika Morris MD; Whitney Shi MD [...] in OV> 07/12/252199 DD/ 99 TD/TT: 07/12/252199 Pressurizer: [facility] External Provider IMG XR PROCEDURES Final Result * Culture, Urine, Routine (06/04/2025 12:00 AM EDT) Urine Urine specimen obtained by clean catch procedure / Unknown 06/04/2025 06/04/2025 Comment:CC Narrative [facility] - 06/06/2025 8:12 AM EDT Klebsiella pneumoniae Quant > 100,000 cfu/mL Klebsiella pneumoniae: Ampicillin >=32(R) Klebsiella pneumoniae: Cefazolin 2(S) Klebsiella pneumoniae: Cefepime <=0.12(S) Klebsiella pneumoniae: Ceftriaxone <=0.25(S) Klebsiella pneumoniae: Ciprofloxacin <=0.06(S) Klebsiella pneumoniae: Gentamicin <=1(S) Klebsiella pneumoniae: Nitrofurantoin 64(I) Klebsiella pneumoniae: Trimethoprim/Sulfamethoxazole <=20(S) Specimen Source: Urine clean catch Erika Morris MD LAB MICROBIOLOGY - GENER AL ORDERABLES Final Result [facility] [address] [place] [phone] * (ABNORMAL) Lipid Panel with Reflex to Direct LDL (04/16/2023 11:12 AM EDT) Cholesterol, Total 187 <200 mg/dL [facility] HDL Cholesterol 66 > OR = 50 mg/dL [facility] Triglycerides 98 <150 mg/dL [facility] LDL Cholesterol 102(H) mg/dL (calc) [facility] Comment: Reference range: <100 Desirable range <100 mg/dL for primary prevention; <70 mg/dL for patients with CHD or diabetic patients with > or = 2 CHD risk factors. LDL-C is now calculated using the John-Freed calculation, which is a validated novel method providing better accuracy than the Friedewald equation in the estimation of LDL-C. John SS et al. DOMINIQUE. 2013;310(19): 1007-3330 (http://education.Quture/faq/OLB909) Chol/HDLC Ratio 2.8 <5.0 (calc) [facility] Non-HDL Cholesterol 121 <130 mg/dL (calc) [facility] Comment: For patients with diabetes plus 1 major ASCVD risk factor, treating to a non-HDL-C goal of <100 mg/dL (LDL-C of <70 mg/dL) is considered a therapeutic option. 04/16/2023 11:1 2 AM EDT 04/16/2023 11:13 AM EDT Narrative [facility] - 04/16/2023 10:44 PM EDT FASTING:YES FASTING: YES Erika Morris MD LAB BLOOD ORDERABLES Fin al Result [facility] [address], [place] [address] [facility] [address] [place] [address] from Last 3 Months or Most Recently Relevant to Health Maintenance Insurance [place] [address] [place] [phone] DENTAL - [facility] Advance Directives Documents on File Type Date Recorded Patient Roller Inspector And Mender Expl anation Advance Directives and Living Will 07/09/2024 4:07 PM Hea;[facility] Proxy Care Teams Snag Grinder Relationship Specialty Start Date End Date Erika Morris MD [address] [place] [address] PCP - General Family Medicine 08/07/18 Héctor DOMINGUEZA 10/19/24
--- OUTSIDE RECORDS SUMMARY | 2025-08-23 13:50 | XMS_ITS | Encounter Summary ---
Author Organization [employer] Address 75 [facility] 7t [place] [address] Care Team Providers Care Creative Strategist Name Role Phone Erika Morris MD Primary Care Provider + Encounter Details Date Type Department Care Team (Late st Contact Info) Description 11/13/2024 Telephone [facility] [address] [place] [address] Erika Morris MD [address] [place] [address] Social History Tobacco Use Types Packs/Day Years [...] documented as of this encounter Care Teams Creative Strategist Relationship Specialty Start Date End Date Erika Morris MD [address] [place] [address] PCP - General Family Medicine 08/07/18 H[employer]ctor YUAN 10/19/24 documented as of this encounter
--- OUTSIDE RECORDS SUMMARY | 2025-08-23 13:51 | XMS_ITS | Encounter Summary ---
Author Organization [facility] Address [address] [place] [address] Care Team Providers Care Cold Rolling Machine Setter Name Role Phone Yariel Walton MD Primary Care Provider Encounter Details Date Type Department Care Team (Late st Contact Info) Description 07/24/[address] [facility] - Main Lab [address] [facility] [place] [address] Yariel Walton MD [address], [place] [phone] Multiple myeloma not having achieved remission (CMS/HCC V24, CMS/[facility] V28) Social History Tobacco Use [...] myeloma not having achieved remission (CMS/HCC V24, CMS/[facility] V28) documented in this encounter Additional Health Concerns Infection Onset Date Last Indicated Resolved Time ESBL 10/03/2024 10/03/2024 documented as of this encounter Care Teams Cold Rolling Machine Setter Relationship Specialty Start Date End Date Yariel Walton MD [address] [place], [place] [phone] PCP - General Family Medicine 10/12/24 documented as of this encounter
--- OUTSIDE RECORDS SUMMARY | 2025-08-23 13:51 | XMS_ITS | Clinical Summary ---
Author Organization [facility] Address [address] [place] [address] Phone Care Team Providers Care Smoking Pipe Liner Name Role Phone Yariel Walton MD Primary Care Provider Encounters Date Type Department Care Team Description 08/07/2025 Lab Requisition [facility] Lab [address] [place] [phone] Yariel Walton MD Multiple myeloma not having achieved remission (CMS/HCC V24, CMS/HCC V28) 07/27/2025 Lab Requisition [facility] Lab [address] [place] [phone] Yariel Walton MD Multiple myeloma not having achieved remission (CMS/HCC V24, CMS/HCC V28) 07/24/2025 Lab Requisition [facility] Lab [address] [place] [phone] Yariel Walton MD Multiple myeloma not having [...] history exists Hypertension/CHF/CAD Annual BMP Blood Test 08/09/2026 08/09/2025, 07/28/2025, 05/22/2025, Additional history exists DTaP,Tdap,and Td Vaccines (2 [...] Procedure Name Priority Date/Time Associated Diagnosis Comments COMPREHENSIVE METABOLIC PANEL Routine 08/09/2025 6:30 AM EDT Multiple myeloma not having achieved remission (CMS/[facility] V24, [facility] V28) COMPLETE BLOOD COUNT Routine 08/09/2025 6:30 AM EDT Multiple myeloma not having achieved remission ([facility]/HCC V24, [facility] V28) COMPREHENSIVE METABOLIC PANEL Routine 07/28/2025 5:00 AM EDT Multiple myeloma not having achieved remission ([facility]/HCC V24, [facility] V28) COMPLETE BLOOD COUNT Routine 07/28/2025 5:00 AM EDT Multiple myeloma not having achieved remission ([facility]/HCC V24, [facility] V28) MAGNESIUM Routine 07/28/2025 5:00 AM EDT Multiple myeloma not having achieved remission ([facility]/HCC V24, [facility] V28) from Last 3 Months Results * (ABNORMAL) Complete blood count (08/09/2025 6:30 AM EDT) Only the most recent of2 resultswithin the time period is included. WBC 5.4 4.8 - 10.8 K/mcL LAB HEMETOLOGY METHOD 08/09/2025 1:43 PM EDT [facility] RBC 3.60(L) 3.80 - 4.80 M/mcL LAB HEMETOLOGY METHOD 08/09/2025 1:43 PM EDT [facility] Hemoglobin 10.1(L) 11.5 - 16.0 g/dL LAB HEMETOLOGY METHOD 08/09/2025 1:43 PM EDT [facility] Hematocrit 32.4(L) 35.0 - 47.0 % LAB HEMETOLOGY METHOD 08/09/2025 1:43 PM EDT [facility] MCV 90.3 79.0 - 98.0 FL LAB HEMETOLOGY METHOD 08/09/2025 1:43 PM EDT [facility] MCH 28.1 27.0 - 32.0 pcg LAB HEMETOLOGY METHOD 08/09/2025 1:43 PM EDT [facility] MCHC 31.2(L) 32.0 - 37.0 g/dL LAB HEMETOLOGY METHOD 08/09/2025 1:43 PM EDT [facility] RDW 15.6(H) 11.0 - 15.0 % LAB HEMETOLOGY METHOD 08/09/2025 1:43 PM EDT [facility] Platelets 249 130 - 400 K/mcL LAB HEMETOLOGY METHOD 08/09/2025 1:43 PM EDT [facility] MPV 12.3(H) 7.0 - 11.0 FL LAB HEMETOLOGY METHOD 08/09/2025 1:43 PM EDT [facility] NRBC 0.0 <1.0 % LAB HEMETOLOGY METHOD 08/09/2025 1:43 PM EDT [facility] NRBC Absolute 0.00 <0.10 K/mcL LAB HEMETOLOGY METHOD 08/09/2025 1:43 PM EDT [facility] Blood Venous blood specimen / Unknown Venipuncture / Unknown 08/09/2025 6:30 AM EDT 08/09/2025 11:24 AM EDT Yariel Walton MD LAB BLOOD ORDERABLES Final R esult [facility] [address] [place] [address], * (ABNORMAL) Comprehensive metabolic panel (08/09/2025 6:30 AM EDT) Only the most recent of2 resultswithin the time period is included. Sodium 141 133 - 145 mmol/L LAB CHEMISTRY METHOD 08/09/2025 1:28 PM EDT [facility] Potassium 4.8 3.5 - 5.5 mmol/L LAB CHEMISTRY METHOD 08/09/2025 1:28 PM [facility] Chloride 110 96 - 110 mmol/L LAB CHEMISTRY METHOD 08/09/2025 1:28 PM [facility] CO2 24 21 - 32 mmol/L LAB CHEMISTRY METHOD 08/09/2025 1:28 PM [facility] Anion Gap 7 3 - 11 LAB CHEMISTRY METHOD 08/09/2025 1:28 PM [facility] Glucose 85 70 - 100 mg/dL LAB CHEMISTRY METHOD 08/09/2025 1:28 PM [facility] BUN 32(H) 5 - 25 mg/dL LAB CHEMISTRY METHOD 08/09/2025 1:28 PM [facility] Creatinine 1.23(H) 0.50 - 1.10 mg/dL LAB CHEMISTRY METHOD 08/09/2025 1:28 PM [facility] eGFR 45(L) >=60 mL/min/1. 73m2 LAB CHEMISTRY METHOD 08/09/2025 1:28 PM [facility] Comment:Calculation based on the Chronic Kidney Disease Epidemiology Collaboration (CKD-EPI) equation refit without adjustment for race. BUN/Creatinine Ratio 26.0 LAB CHEMISTRY METHOD 08/09/2025 1:28 PM [facility] Calcium 8.7 8.5 - 10.5 mg/dL LAB CHEMISTRY METHOD 08/09/2025 1:28 PM [facility] AST (SGOT) 14 10 - 42 unit/L LAB CHEMISTRY METHOD 08/09/2025 1:28 PM [facility] ALT (SGPT) 24 10 - 60 unit/L LAB CHEMISTRY METHOD 08/09/2025 1:28 PM [facility] Alkaline Phosphatase 130(H) 42 - 121 unit/L LAB CHEMISTRY METHOD 08/09/2025 1:28 PM [facility] Total Protein 6.2 6.0 - 8.0 g/dL LAB CHEMISTRY METHOD 08/09/2025 1:28 PM EDT [facility] Albumin 3.0(L) 3.2 - 5.0 g/dL LAB CHEMISTRY METHOD 08/09/2025 1:28 PM EDT [facility] Total Bilirubin 0.3 0.0 - 1.4 mg/dL LAB CHEMISTRY METHOD 08/09/2025 1:28 PM EDT [facility] Blood Venous blood specimen / Unknown Venipuncture / Unknown 08/09/2025 6:30 AM EDT 08/09/2025 11:24 AM EDT Yariel Walton MD LAB BLOOD ORDERABLES Final R esult Performing Organization Address City/[facility]/ZIP Co de Phone Number [facility] [address] [place] [address], [place] [phone] * Magnesium (07/28/2025 5:00 AM EDT) Magnesium 2.5 1.9 - 2.6 mg/dL LAB CHEMISTRY METHOD 07/28/2025 8:04 AM EDT [facility] Blood Venous blood specimen / Unknown Venipuncture / Unknown 07/28/2025 5:00 AM EDT 07/28/2025 7:08 AM EDT Yariel Walton MD LAB BLOOD ORDERABLES Final R esult [facility] [address] [place] [address], [place] [phone] from Last 3 Months Additional Health Concerns Infection Onset Date Last Indicated ESBL 10/03/2024 10/03/2024 Insurance MEDICARE [place]ICAID - [place] Care Teams Smoking Pipe Liner Relationship Specialty Start Date End Date Yariel Walton MD [address] [place] [address] PCP - General Family Medicine 10/12/24
--- OUTSIDE RECORDS SUMMARY | 2025-08-23 13:51 | XMS_ITS | Encounter Summary ---
Author Organization [employer] Address [address] [facility] 7t [place] [address] Care Team Providers Care Insurance Special Agent Name Role Phone Erika Morris MD Primary Care Provider + Encounter Details Date Type Department Care Team (Late st Contact Info) Description 01/30/2024 Telephone [facility] MEDICINE [address] [place], [place] [phone] Erika Morris MD [address] [place], [place] [phone] Social History Tobacco Use Types Packs/Day Years [...] as of this encounter Care Teams Insurance Special Agent Relationship Specialty Start Date End Date Erika Morris MD [address] [place] [phone] PCP - General Family Medicine 08/07/18 [employer] 07/16/24 11/08/24 Hé[employer] YUAN 10/19/24 documented as of this encounter
--- OUTSIDE RECORDS SUMMARY | 2025-08-23 13:51 | XMS_ITS | Encounter Summary ---
Author Organization [employer] Address [address] [facility] 7t [place] [address] Care Team Providers Care Sand Slinger Name Role Phone Erika Morris MD Primary Care Provider + Reason for Visit * Reason Comments Med Refill Encounter Details Date Type Department Care Team ([facility] st Contact Info) Description 07/01/2024 Refill [facility] MEDICINE [address] [place], [place] [phone] Erika Morris MD [address] [place], [place] [phone] Social History Tobacco Use Types Packs/Day Years [...] documented as of this encounter Care Teams Sand Slinger Relationship Specialty Start Date End Date Erika Morris MD [address] [place] [address] PCP - General Family Medicine 08/07/18 [employer] 07/16/24 11/08/24 [employer] 10/19/24 documented as of this encounter
--- OUTSIDE RECORDS SUMMARY | 2025-08-23 13:51 | XMS_ITS | Encounter Summary ---
Author Organization [employer] Address [address] [place] [address] Care Team Providers Care Visual Merchandising Assistant Name Role Phone Yariel Walton MD Primary Care Provider [phone] Encounter Details Date Type Department Care Team (Late st Contact Info) Description 08/07/[address] [facility] - Main Lab [address] [facility] [place] [address] Yariel Walton MD [address] [place] [address] Multiple myeloma not having achieved remission (CMS/HCC V24, CMS/HCC V28) Social History Tobacco Use Types Packs/Day [...] Associated Diagnosis Comments COMPLETE BLOOD COUNT Routine 08/09/2025 6:30 AM EDT Multiple myeloma not having achieved remission (CMS/HCC V24, CMS/HCC V28) COMPREHENSIVE METABOLIC PANEL Routine 08/09/2025 6:30 AM EDT Multiple myeloma not having achieved remission (CMS/HCC V24, CMS/HCC V28) documented in this encounter Results * (ABNORMAL) Comprehensive metabolic panel (08/09/2025 6:30 AM EDT) Sodium 141 133 - 145 mmol/L LAB CHEMISTRY METHOD 08/09/2025 1:28 PM [facility] Potassium 4.8 3.5 - 5.5 mmol/L LAB CHEMISTRY METHOD 08/09/2025 1:28 PM [facility] Chloride 110 96 - 110 mmol/L LAB CHEMISTRY METHOD 08/09/2025 1:28 PM [facility] CO2 24 21 - 32 mmol/L LAB CHEMISTRY METHOD 08/09/2025 1:28 PM [facility] Anion Gap 7 3 - 11 LAB CHEMISTRY METHOD 08/09/2025 1:28 PM [facility] Glucose 85 70 - 100 mg/dL LAB CHEMISTRY METHOD 08/09/2025 1:28 PM [facility] BUN 32(H) 5 - 25 mg/dL LAB CHEMISTRY METHOD 08/09/2025 1:28 PM [facility] Creatinine 1.23(H) 0.50 - 1.10 mg/dL LAB CHEMISTRY METHOD 08/09/2025 1:28 PM [facility] eGFR 45(L) >=60 mL/min/1. 73m2 LAB CHEMISTRY METHOD 08/09/2025 1:28 PM [facility] Comment:Calculation based on the Chronic Kidney Disease Epidemiology Collaboration (CKD-EPI) equation refit without adjustment for race. BUN/Creatinine Ratio 26.0 LAB CHEMISTRY METHOD 08/09/2025 1:28 PM [facility] Calcium 8.7 8.5 - 10.5 mg/dL LAB CHEMISTRY METHOD 08/09/2025 1:28 PM [facility] AST (SGOT) 14 10 - 42 unit/L LAB CHEMISTRY METHOD 08/09/2025 1:28 PM [facility] ALT (SGPT) 24 10 - 60 unit/L LAB CHEMISTRY METHOD 08/09/2025 1:28 PM [facility] Alkaline Phosphatase 130(H) 42 - 121 unit/L LAB CHEMISTRY METHOD 08/09/2025 1:28 PM EDT [facility] Total Protein 6.2 6.0 - 8.0 g/dL LAB CHEMISTRY METHOD 08/09/2025 1:28 PM EDT [facility] Albumin 3.0(L) 3.2 - 5.0 g/dL LAB CHEMISTRY METHOD 08/09/2025 1:28 PM EDT [facility] Total Bilirubin 0.3 0.0 - 1.4 mg/dL LAB CHEMISTRY METHOD 08/09/2025 1:28 PM EDT [facility] Blood Venous blood specimen / Unknown Venipuncture / Unknown 08/09/2025 6:30 AM EDT 08/09/2025 11:24 AM EDT us Yariel Walton MD LAB BLOOD ORDERABLES Final R esult [facility] [address] [place] [address], [place] [phone] * (ABNORMAL) Complete blood count (08/09/2025 6:30 AM EDT) WBC 5.4 4.8 - 10.8 K/mcL LAB HEMETOLOGY METHOD 08/09/2025 1:43 PM EDT [facility] RBC 3.60(L) 3.80 - 4.80 M/mcL LAB HEMETOLOGY METHOD 08/09/2025 1:43 PM EDT [facility] Hemoglobin 10.1(L) 11.5 - 16.0 g/dL LAB HEMETOLOGY METHOD 08/09/2025 1:43 PM EDT [facility] Hematocrit 32.4(L) 35.0 - 47.0 % LAB HEMETOLOGY METHOD 08/09/2025 1:43 PM EDT [facility] MCV 90.3 79.0 - 98.0 FL LAB HEMETOLOGY METHOD 08/09/2025 1:43 PM EDT [facility] MCH 28.1 27.0 - 32.0 pcg LAB HEMETOLOGY METHOD 08/09/2025 1:43 PM EDT [facility] MCHC 31.2(L) 32.0 - 37.0 g/dL LAB HEMETOLOGY METHOD 08/09/2025 1:43 PM EDT [facility] RDW 15.6(H) 11.0 - 15.0 % LAB HEMETOLOGY METHOD 08/09/2025 1:43 PM EDT [facility] Platelets 249 130 - 400 K/mcL LAB HEMETOLOGY METHOD 08/09/2025 1:43 PM EDT [facility] MPV 12.3(H) 7.0 - 11.0 FL LAB HEMETOLOGY METHOD 08/09/2025 1:43 PM EDT [facility] NRBC 0.0 <1.0 % LAB HEMETOLOGY METHOD 08/09/2025 1:43 PM EDT [facility] NRBC Absolute 0.00 <0.10 K/mcL LAB HEMETOLOGY METHOD 08/09/2025 1:43 PM EDT [facility] Blood Venous blood specimen / Unknown Venipuncture / Unknown 08/09/2025 6:30 AM EDT 08/09/2025 11:24 AM EDT us Yariel Walton MD LAB BLOOD ORDERABLES Final R esult [facility] [address] [place] [address], documented in this encounter Visit Diagnoses Diagnosis Multiple myeloma not having achieved remission (CMS/HCC V24, CMS/HCC V28) documented in this encounter Additional Health Concerns Infection Onset Date Last Indicated Resolved Time ESBL 10/03/2024 10/03/2024 documented as of this encounter Care Teams Visual Merchandising Assistant Relationship Specialty Start Date End Date Yariel Walton MD [address] [place] [address] PCP - General Family Medicine 10/12/24 documented as of this encounter
--- OUTSIDE RECORDS SUMMARY | 2025-08-23 13:51 | XMS_ITS | Encounter Summary ---
Author Organization [employer] Address [address] [facility] 7t [place] [address] Care Team Providers Care Senior Asic Design Engineer Name Role Phone Erika Morris MD Primary Care Provider + Reason for Visit * Reason Comments Med Refill Encounter Details Date Type Department Care Team ([facility] st Contact Info) Description 10/10/2023 Refill [facility] MED & PEDS [address] [place], [place] [phone] Erika Morris MD [address] [place] [address] Neoplasm related pain (acute) (chronic) Social History [...] documented as of this encounter Care Teams Senior Asic Design Engineer Relationship Specialty Start Date End Date Erika Morris MD [address] [place] [phone] PCP - General Family Medicine 08/07/18 [employer] 07/16/24 11/08/24 Hé[employer] YUAN 10/19/24 documented as of this encounter
--- OUTSIDE RECORDS SUMMARY | 2025-08-23 13:51 | XMS_ITS | Encounter Summary ---
Author Organization [employer] Address [address] [place] [address] Care Team Providers Care Leveler Helper Name Role Phone Yariel Walton MD Primary Care Provider Encounter Details Date Type Department Care Team (Late st Contact Info) Description 10/06/2024 Lab Requisition [facility] - Main Lab [address] [facility] [place] [address] Yariel Walton MD [address] [place] [address] Chronic kidney disease, unspecified; Essential [...] mg/dL LAB CHEMISTRY METHOD 10/06/2024 4:35 PM [facility] Blood Venous blood specimen / Unknown 10/06/2024 5:54 AM EST 10/06/2024 12:07 PM EST us Yariel Walton MD LAB BLOOD ORDERABLES Final R esult [facility] [address] [place] [address], * (ABNORMAL) Basic metabolic panel (10/06/2024 5:54 AM EST) Sodium 135 133 - 145 mmol/L LAB CHEMISTRY METHOD 10/06/2024 4:35 PM [facility] Potassium 5.7(H) 3.5 - 5.5 mmol/L LAB CHEMISTRY METHOD 10/06/2024 4:35 PM [facility] Chloride 106 96 - 110 mmol/L LAB CHEMISTRY METHOD 10/06/2024 4:35 PM [facility] CO2 20(L) 21 - 32 mmol/L LAB CHEMISTRY METHOD 10/06/2024 4:35 PM [facility] Anion Gap 9 3 - 11 LAB CHEMISTRY METHOD 10/06/2024 4:35 PM [facility] Glucose 70 70 - 100 mg/dL LAB CHEMISTRY METHOD 10/06/2024 4:35 PM [facility] BUN 41(H) 5 - 25 mg/dL LAB CHEMISTRY METHOD 10/06/2024 4:35 PM [facility] Creatinine 1.69(H) 0.50 - 1.10 mg/dL LAB CHEMISTRY METHOD 10/06/2024 4:35 PM [facility] eGFR 31(L) >=60 mL/min/1. 73m2 LAB CHEMISTRY METHOD 10/06/2024 4:35 PM [facility] Comment:Calculation based on the Chronic Kidney Disease Epidemiology Collaboration (CKD-EPI) equation refit without adjustment for race. BUN/Creatinine Ratio 24.3 LAB CHEMISTRY METHOD 10/06/2024 4:35 PM EST [facility] Calcium 8.8 8.5 - 10.5 mg/dL LAB CHEMISTRY METHOD 10/06/2024 4:35 PM [facility] Blood Venous blood specimen / Unknown 10/06/2024 5:54 AM EST 10/06/2024 12:07 PM EST us Yariel Walton MD LAB BLOOD ORDERABLES Final R esult [facility] [address] [place] [address], [place] [phone] * (ABNORMAL) Complete blood count (10/06/2024 5:54 AM EST) WBC 9.0 4.8 - 10.8 K/mcL LAB HEMETOLOGY METHOD 10/06/2024 10:44 AM [facility] RBC 3.50(L) 3.80 - 4.80 M/mcL LAB HEMETOLOGY METHOD 10/06/2024 10:44 AM [facility] Hemoglobin 9.2(L) 11.5 - 16.0 g/dL LAB HEMETOLOGY METHOD 10/06/2024 10:44 AM [facility] Hematocrit 29.8(L) 35.0 - 47.0 % LAB HEMETOLOGY METHOD 10/06/2024 10:44 AM [facility] MCV 86.4 79.0 - 98.0 FL LAB HEMETOLOGY METHOD 10/06/2024 10:44 AM [facility] MCH 26.7(L) 27.0 - 32.0 pcg LAB HEMETOLOGY METHOD 10/06/2024 10:44 AM [facility] MCHC 30.9(L) 32.0 - 37.0 g/dL LAB HEMETOLOGY METHOD 10/06/2024 10:44 AM EST [facility] RDW 14.6 11.0 - 15.0 % LAB HEMETOLOGY METHOD 10/06/2024 10:44 AM [facility] Platelets 370 130 - 400 K/mcL LAB HEMETOLOGY METHOD 10/06/2024 10:44 AM [facility] MPV 12.2(H) 7.0 - 11.0 FL LAB HEMETOLOGY METHOD 10/06/2024 10:44 AM [facility] NRBC 0.0 <1.0 % LAB HEMETOLOGY METHOD 10/06/2024 10:44 AM [facility] NRBC Absolute 0.00 <0.10 K/mcL LAB HEMETOLOGY METHOD 10/06/2024 10:44 AM [facility] Blood Venous blood specimen / Unknown Venipuncture / Unknown 10/06/2024 5:54 AM EST 10/06/2024 10:14 AM EST Yariel Walton MD LAB BLOOD ORDERABLES Final R esult [facility] [address] [place] [address], documented in this encounter Visit Diagnoses Diagnosis Chronic kidney disease, unspecified Essential (primary) hypertension Unspecified essential hypertension documented in this encounter Additional Health Concerns Infection Onset Date Last Indicated Resolved Time ESBL 10/03/2024 10/03/2024 documented as of this encounter Care Teams Leveler Helper Relationship Specialty Start Date End Date Yariel Walton MD [address] [place] [address] PCP - General Family Medicine 10/12/24 documented as of this encounter
--- OUTSIDE RECORDS SUMMARY | 2025-08-23 13:51 | XMS_ITS | Encounter Summary ---
Author Organization [employer] Address [address] [facility] [address] [place] [address] Care Team Providers Care Research Associate Molecular Biology Name Role Phone Erika Morris MD Primary Care Provider + Encounter Details Date Type Department Care Team (Late st Contact Info) Description 07/16/2023 Orders Only [facility] AD[facility] DENTAL [address] [place] [address] July [employer] DDS [address] [place] [address] Social History Tobacco Use Types Packs/Day Years [...] documented as of this encounter Care Teams Research Associate Molecular Biology Relationship Specialty Start Date End Date Erika Morris MD [address] [place] [phone] PCP - General Family Medicine 08/07/18 [employer] 07/16/24 11/08/24 [employer] 10/19/24 documented as of this encounter
--- OUTSIDE RECORDS SUMMARY | 2025-08-23 13:51 | XMS_ITS | Encounter Summary ---
Author Organization [employer] Address [address] [facility] 7t [place] [address] Care Team Providers Care Generator Rebuilder Name Role Phone Erika Morris MD Primary Care Provider + Encounter Details Date Type Department Care Team (Late st Contact Info) Description 12/26/[address] [facility] MED & PEDS [address] [place], [place] [phone] Mariia Lemons LPN Social History Tobacco Use [...] on filedocumented in this encounter Care Teams Generator Rebuilder Relationship Specialty Start Date End Date Erika Morris MD [address] [place] [address] PCP - General Family Medicine 08/07/18 [email or web address] 07/16/24 11/08/24 [facility] 10[facility]24 documented as of this encounter
--- OUTSIDE RECORDS SUMMARY | 2025-08-23 13:51 | XMS_ITS | Encounter Summary ---
Author Organization [employer] Address [address] [facility] 7t [place] [address] Care Team Providers Care Owner Spa Director Name Role Phone Erika Morris MD Primary Care Provider + Reason for Visit * Reason Comments Med Refill Encounter Details Date Type Department Care Team ([facility] st Contact Info) Description 12/16/2023 Refill [facility] MED & PEDS [address] [place], [place] [phone] Erika Morris MD [address] [place] [address] Neoplasm related pain (acute) (chronic) Social History [...] documented as of this encounter Care Teams Owner Spa Director Relationship Specialty Start Date End Date Erika Morris MD [address] [place] [id number] PCP - General Family Medicine 08/07/18 [employer] 07/16/24 11/08/24 [employer] 10/19/24 documented as of this encounter
--- OUTSIDE RECORDS SUMMARY | 2025-08-23 13:51 | XMS_ITS | Encounter Summary ---
Author Organization [employer] Address [address] [facility] [address] [place] [address] Care Team Providers Care Pet Adoption Counselor Name Role Phone Erika Morris MD Primary Care Provider + Reason for Visit * Reason Onset Date Comments referralto [facility] 06/25/2023 referral appt [facility] 06/25/2023 Encounter Details Date Type Department Care Team (Late st Contact Info) Description 06/25/2023 Telephone [facility] ADULT DENTAL [address] [place] [address] July Acuña, DDS [address] [place] [address] referralto [facility]; referral appt [facility] Social History [...] AM EDT Tahir called in stating that [facility] is able to get patient in for August for a consulation and then go from there. Bere and rasta would like to know if you are able to script more antibiotics to hold her over until she gets seen. At the same time tthey are looking to see if there is anything you can do to contact [facility] and see if they can get [...] pick new referral to be seen in [facility] * Telephone Encounter - Elina Mills - 06/25/2023 1:27 PM EDT [facility] to say that they do not feel comfortable treating patient with her condition. They are recommending patient get a new referral to [facility] in [place]. documented in this encounter Plan of Treatment Not on file documented as of this encounter Visit Diagnoses Not on filedocumented in this encounter Additional Health Concerns Assessment Noted Time PHQ-9 Depression Total Score: 14 023 10:41 AM EDT documented as of this encounter Care Teams Pet Adoption Counselor Relationship Specialty Start Date End Date Erika Morris MD [address] [place] [address] PCP - General Family Medicine 08/07/18 [facility] 07/16/24 11/08/24 Héctor YUAN 10/19/24 documented as of this encounter
--- OUTSIDE RECORDS SUMMARY | 2025-08-23 13:51 | XMS_ITS | Encounter Summary ---
Author Organization [employer] Address [address] [place] [address] Care Team Providers Care Cotton Buyer Name Role Phone Yariel Walton MD Primary Care Provider Encounter Details Date Type Department Care Team (Late st Contact Info) Description 09/29/2024 Lab Requisition [facility] - Main Lab [address] [facility] [place] [address] Yariel Walton MD [address] [place] [address] Chronic kidney disease, unspecified; Essential [...] phlebotomy fee (09/29/2024 8:48 AM EST) Pathologist [facility] RESIDENTIAL TRAVEL PHLEBOTOMY FEE Completed 09/29/2024 11:[address] [facility] Blood Venous blood specimen / Unknown Venipuncture / Unknown 09/29/2024 8:48 AM EST 09/29/2024 10:37 AM EST Yariel Walton MD LAB BLOOD ORDERABLES Final R esult Performing Organization Address City/[facility]/ZIP Co de Phone Number [facility] [address] [place] [address], [place] [phone] * (ABNORMAL) Magnesium (09/29/2024 8:48 AM EST) [facility] Magnesium 1.6(L) 1.9 - 2.6 mg/dL LAB CHEMISTRY METHOD 09/29/2024 12:[address] [facility] Blood Venous blood specimen / Unknown Venipuncture / Unknown 09/29/2024 8:48 AM EST 09/29/2024 10:37 AM EST Yariel Walton MD LAB BLOOD ORDERABLES Final R esult [facility] [address] [place] [address], [place] [phone] * (ABNORMAL) Basic metabolic panel (09/29/2024 8:48 AM EST) [facility] Sodium 137 133 - 145 mmol/L LAB CHEMISTRY METHOD 09/29/2024 12:[address] [facility] Potassium 4.8 3.5 - 5.5 mmol/L LAB CHEMISTRY METHOD 09/29/2024 12:01 PM [facility] Chloride 108 96 - 110 mmol/L LAB CHEMISTRY METHOD 09/29/2024 12:[address] [facility] CO2 21 21 - 32 mmol/L LAB CHEMISTRY METHOD 09/29/2024 12:01 PM [facility] Anion Gap 8 3 - 11 LAB CHEMISTRY METHOD 09/29/2024 12:01 PM [facility] Glucose 94 70 - 100 mg/dL LAB CHEMISTRY METHOD 09/29/2024 12:01 PM [facility] BUN 40(H) 5 - 25 mg/dL LAB CHEMISTRY METHOD 09/29/2024 12:01 PM [facility] Creatinine 1.29(H) 0.50 - 1.10 mg/dL LAB CHEMISTRY METHOD 09/29/2024 12:01 PM [facility] eGFR 42(L) >=60 mL/min/1. 73m2 LAB CHEMISTRY METHOD 09/29/2024 12:01 PM [facility] Comment:Calculation based on the Chronic Kidney Disease Epidemiology Collaboration (CKD-EPI) equation refit without adjustment for race. BUN/Creatinine Ratio 31.0 LAB CHEMISTRY METHOD 09/29/2024 12:01 PM [facility] Calcium 9.1 8.5 - 10.5 mg/dL LAB CHEMISTRY METHOD 09/29/2024 12:01 PM [facility] Blood Venous blood specimen / Unknown Venipuncture / Unknown 09/29/2024 8:48 AM EST 09/29/2024 10:37 AM EST us Yariel Walton MD LAB BLOOD ORDERABLES Final R esult [facility] [address] [place] [address], * (ABNORMAL) Complete blood count (09/29/2024 8:48 AM EST) WBC 11.7(H) 4.8 - 10.8 K/mcL LAB HEMETOLOGY METHOD 09/29/2024 11:[address] [facility] RBC 3.60(L) 3.80 - 4.80 M/mcL LAB HEMETOLOGY METHOD 09/29/2024 11:15 AM [facility] Hemoglobin 9.7(L) 11.5 - 16.0 g/dL LAB HEMETOLOGY METHOD 09/29/2024 11:15 AM [facility] Hematocrit 31.5(L) 35.0 - 47.0 % LAB HEMETOLOGY METHOD 09/29/2024 11:15 AM [facility] MCV 86.5 79.0 - 98.0 FL LAB HEMETOLOGY METHOD 09/29/2024 11:15 AM [facility] MCH 26.6(L) 27.0 - 32.0 pcg LAB HEMETOLOGY METHOD 09/29/2024 11:15 AM [facility] MCHC 30.8(L) 32.0 - 37.0 g/dL LAB HEMETOLOGY METHOD 09/29/2024 11:15 AM [facility] RDW 15.2(H) 11.0 - 15.0 % LAB HEMETOLOGY METHOD 09/29/2024 11:15 AM [facility] Platelets 270 130 - 400 K/mcL LAB HEMETOLOGY METHOD 09/29/2024 11:15 AM [facility] MPV 12.8(H) 7.0 - 11.0 FL LAB HEMETOLOGY METHOD 09/29/2024 11:15 AM [facility] NRBC 0.0 <1.0 % LAB HEMETOLOGY METHOD 09/29/2024 11:15 AM [facility] NRBC Absolute 0.00 <0.10 K/mcL LAB HEMETOLOGY METHOD 09/29/2024 11:15 AM [facility] Blood Venous blood specimen / Unknown Venipuncture / Unknown 09/29/2024 8:48 AM EST 09/29/2024 10:37 AM EST us Yariel Walton MD LAB BLOOD ORDERABLES Final R esult [facility] [address] [place] [address], documented in this encounter Visit Diagnoses Diagnosis Chronic kidney disease, unspecified Essential (primary) hypertension Unspecified essential hypertension documented in this encounter Additional Health Concerns Infection Onset Date Last Indicated Resolved Time ESBL 10/03/2024 10/03/2024 documented as of this encounter Care Teams Cotton Buyer Relationship Specialty Start Date End Date Yariel Walton MD [address] [place] [address] PCP - General Family Medicine 10/12/24 documented as of this encounter
--- OUTSIDE RECORDS SUMMARY | 2025-08-23 13:51 | XMS_ITS | Encounter Summary ---
Author Organization [employer] Address [address] [facility] [address] [place] [address] Care Team Providers Care Physical Science Professor Name Role Phone Erika Morris MD Primary Care Provider + Reason for Visit * Reason Onset Date Comments Referral 06/04/2023 Encounter Details Date Type Department Care Team (Late st Contact Info) Description 06/04/2023 Telephone [facility] ADULT DENTAL [address] [place] [address] July Acuña DDS [address] [place] [address] Referral Social History Tobacco Use Types Packs/Day [...] Surgeon is ready for her to come medicinal plant picker * Telephone Encounter - Elina Mills [...] know the recommendations made at the hospital. [phone] Thanks, Dr. Hernandez * Telephone Encounter - [...] request with provider. She is willing to medicinal plant picker in office. documented in this encounter Plan of Treatment Not on file documented as of this encounter Visit Diagnoses Not on filedocumented in this encounter Additional Health Concerns Assessment Noted Time PHQ-9 Depression Total Score: 14 023 10:41 AM EDT documented as of this encounter Care Teams Physical Science Professor Relationship Specialty Start Date End Date Erika Morris MD [address] [place] [address] PCP - General Family Medicine 08/07/18 [employer] 07/16/24 11/08/24 Héctor [facility] 10/19/24 documented as of this encounter
--- OUTSIDE RECORDS SUMMARY | 2025-08-23 13:51 | XMS_ITS | Encounter Summary ---
Author Organization [employer] Address [address] [facility] 7t [place] [address] Care Team Providers Care Camera Repair Technician Name Role Phone Erika Morris MD Primary Care Provider + Reason for Visit * Reason Comments Med Refill Encounter Details Date Type Department Care Team (Late st Contact Info) Description 07/17/2023 Refill [facility] MEDICINE [address] [place], [place] [phone] Aridane Panchal MD [address] [place] [address] Primary insomnia Social History Tobacco Use Types [...] documented as of this encounter Care Teams Camera Repair Technician Relationship Specialty Start Date End Date Erika Morris MD [address] [place] [address] PCP - General Family Medicine 08/07/18 [employer] 07/16/24 11/08/24 Héctor YUAN 10/19/24 documented as of this encounter
--- OUTSIDE RECORDS SUMMARY | 2025-08-23 13:51 | XMS_ITS | Encounter Summary ---
Author Organization [employer] Address [address] [place] [address] Care Team Providers Care Biological Sciences Professor Name Role Phone Yariel Walton MD Primary Care Provider Encounter Details Date Type Department Care Team (Late st Contact Info) Description 10/12/2024 Lab Requisition [facility] - Main Lab [address] [facility] [place] [address] Yariel Walton MD [address] [place] [address] Chronic kidney disease, unspecified; Essential [...] mg/dL LAB CHEMISTRY METHOD 10/13/2024 8:52 AM [facility] Blood Venous blood specimen / Unknown Venipuncture / Unknown 10/13/2024 5:15 AM EST 10/13/2024 8:18 AM EST us Yariel Walton MD LAB BLOOD ORDERABLES Final R esult [facility] [address] [place] [address], * (ABNORMAL) Basic metabolic panel (10/13/2024 5:15 AM EST) Sodium 138 133 - 145 mmol/L LAB CHEMISTRY METHOD 10/13/2024 8:52 AM [facility] Potassium 5.4 3.5 - 5.5 mmol/L LAB CHEMISTRY METHOD 10/13/2024 8:52 AM [facility] Chloride 109 96 - 110 mmol/L LAB CHEMISTRY METHOD 10/13/2024 8:52 AM [facility] CO2 25 21 - 32 mmol/L LAB CHEMISTRY METHOD 10/13/2024 8:52 AM [facility] Anion Gap 4 3 - 11 LAB CHEMISTRY METHOD 10/13/2024 8:52 AM [facility] Glucose 78 70 - 100 mg/dL LAB CHEMISTRY METHOD 10/13/2024 8:52 AM [facility] BUN 33(H) 5 - 25 mg/dL LAB CHEMISTRY METHOD 10/13/2024 8:52 AM [facility] Creatinine 1.52(H) 0.50 - 1.10 mg/dL LAB CHEMISTRY METHOD 10/13/2024 8:52 AM [facility] eGFR 35(L) >=60 mL/min/1. 73m2 LAB CHEMISTRY METHOD 10/13/2024 8:52 AM [facility] Comment:Calculation based on the Chronic Kidney Disease Epidemiology Collaboration (CKD-EPI) equation refit without adjustment for race. BUN/Creatinine Ratio 21.7 LAB CHEMISTRY METHOD 10/13/2024 8:52 AM EST [facility] Calcium 8.3(L) 8.5 - 10.5 mg/dL LAB CHEMISTRY METHOD 10/13/2024 8:52 AM [facility] Blood Venous blood specimen / Unknown Venipuncture / Unknown 10/13/2024 5:15 AM EST 10/13/2024 8:18 AM EST us Yariel Walton MD LAB BLOOD ORDERABLES Final R esult [facility] [address] [place] [address], [place] [phone] * (ABNORMAL) Complete blood count (10/13/2024 5:15 AM EST) WBC 6.8 4.8 - 10.8 K/mcL LAB HEMETOLOGY METHOD 10/13/2024 8:28 AM [facility] RBC 3.10(L) 3.80 - 4.80 M/mcL LAB HEMETOLOGY METHOD 10/13/2024 8:28 AM [facility] Hemoglobin 8.2(L) 11.5 - 16.0 g/dL LAB HEMETOLOGY METHOD 10/13/2024 8:28 AM [facility] Hematocrit 27.7(L) 35.0 - 47.0 % LAB HEMETOLOGY METHOD 10/13/2024 8:28 AM [facility] MCV 89.4 79.0 - 98.0 FL LAB HEMETOLOGY METHOD 10/13/2024 8:28 AM [facility] MCH 26.5(L) 27.0 - 32.0 pcg LAB HEMETOLOGY METHOD 10/13/2024 8:28 AM [facility] MCHC 29.6(L) 32.0 - 37.0 g/dL LAB HEMETOLOGY METHOD 10/13/2024 8:28 AM EST [facility] RDW 14.9 11.0 - 15.0 % LAB HEMETOLOGY METHOD 10/13/2024 8:28 AM [facility] Platelets 290 130 - 400 K/mcL LAB HEMETOLOGY METHOD 10/13/2024 8:28 AM [facility] MPV 11.7(H) 7.0 - 11.0 FL LAB HEMETOLOGY METHOD 10/13/2024 8:28 AM EST [facility] NRBC 0.0 <1.0 % LAB HEMETOLOGY METHOD 10/13/2024 8:28 AM [facility] NRBC Absolute 0.00 <0.10 K/mcL LAB HEMETOLOGY METHOD 10/13/2024 8:28 AM [facility] Blood Venous blood specimen / Unknown Venipuncture / Unknown 10/13/2024 5:15 AM EST 10/13/2024 8:18 AM EST Yariel Walton MD LAB BLOOD ORDERABLES Final R esult [facility] [address] [place] [address], documented in this encounter Visit Diagnoses Diagnosis Chronic kidney disease, unspecified Essential (primary) hypertension Unspecified essential hypertension documented in this encounter Additional Health Concerns Infection Onset Date Last Indicated Resolved Time ESBL 10/03/2024 10/03/2024 documented as of this encounter Care Teams Biological Sciences Professor Relationship Specialty Start Date End Date Yariel Walton MD [address] [place] [address] PCP - General Family Medicine 10/12/24 documented as of this encounter
--- OUTSIDE RECORDS SUMMARY | 2025-08-23 13:51 | XMS_ITS | Encounter Summary ---
Author Organization [employer] Address [address] [facility] 7t [place] [address] Care Team Providers Care Senior Unix Administrator Name Role Phone Erika Morris MD Primary Care Provider + Reason for Visit * Reason Comments Med Refill Encounter Details Date Type Department Care Team ([facility] st Contact Info) Description 12/16/[address] [facility] [address] [place], [place] [phone] Erika Morris MD [address] [place] [address] Neoplasm related pain (acute) (chronic) Social History [...] as of this encounter Care Teams Senior Unix Administrator Relationship Specialty Start Date End Date Erika Morris MD [address] [place] [address] PCP - General Family Medicine 08/07/18 [employer] 07/16/24 11/08/24 Héctor YUAN 10/19/24 documented as of this encounter
--- OUTSIDE RECORDS SUMMARY | 2025-08-23 13:51 | XMS_ITS | Encounter Summary ---
Author Organization [employer] Address [address] [place] [address] Care Team Providers Care Bioinformatics Programmer Name Role Phone Yariel Walton MD Primary Care Provider [phone] Encounter Details Date Type Department Care Team (Late st Contact Info) Description 10/04/2024 Lab Requisition [facility] - Main Lab [address] [place] [address] Yariel Walton MD [address] [place] [address] Urinary tract infection, site not [...] reflex microscopic (10/03/2024 5:26 PM EST) Specific Slater Urine 1.016 1.003 - 1.030 LAB URINALYSIS - AUTOMATED METHOD 10/04/2024 1:[address] [facility] pH, Urine 5.5 5.0 - 8.0 pH LAB URINALYSIS - AUTOMATED METHOD 10/04/2024 1:[address] [facility] Leukocytes, Urine Large(A) Negative LAB URINALYSIS - AUTOMATED METHOD 10/04/2024 1:[address] [facility] Nitrite, Urine Negative Negative LAB URINALYSIS - AUTOMATED METHOD 10/04/2024 1:[address] [facility] Protein, Urine 100(A) <=Trace mg/dL LAB URINALYSIS - AUTOMATED METHOD 10/04/2024 1:[address] [facility] Glucose, Urine Negative Negative mg/dL LAB URINALYSIS - AUTOMATED METHOD 10/04/2024 1:[address] [facility] Ketones, Urine Negative Negative mg/dL LAB URINALYSIS - AUTOMATED METHOD 10/04/2024 1:[address] [facility] Urobilinogen , Urine 0.2 0.2 - 1.0 mg/dL LAB URINALYSIS - AUTOMATED METHOD 10/04/2024 1:[address] [facility] Bilirubin, Urine Negative Negative LAB URINALYSIS - AUTOMATED METHOD 10/04/2024 1:[address] [facility] Blood, Urine Large(A) Negative LAB URINALYSIS - AUTOMATED METHOD 10/04/2024 1:[address] [facility] RBC, Urine 278(H) 0 - 4 /HPF LAB URINALYSIS - AUTOMATED METHOD 10/04/2024 1:[address] [facility] WBC, Urine 3,664.2(H) 0 - 4 /HPF LAB URINALYSIS - AUTOMATED METHOD 10/04/2024 1:[address] [facility] Squamous Epithelial, Urine >100(H) 0 - 60 /LPF LAB URINALYSIS - AUTOMATED METHOD 10/04/2024 1:53 PM EST [facility] Bacteria, Urine Many(A) Negative /HPF LAB URINALYSIS - AUTOMATED METHOD 10/04/2024 1:53 PM EST [facility] Hyaline Casts, Urine 4.6(H) 0 - 3 /LPF LAB URINALYSIS - AUTOMATED METHOD 10/04/2024 1:53 PM EST [facility] Urine Urine specimen obtained by clean catch procedure / Unknown 10/03/2024 5:26 PM EST 10/04/2024 12:35 PM EST us Yariel Walton MD LAB URINE ORDERABLES Final R esult [facility] [address] [place] [address], [place] [phone] * (ABNORMAL) Culture urine (10/03/2024 5:26 PM EST) Culture, Urine >100,000 CFU/mL Escherichia coli ESBL(A) ADRIÁN 10/07/2024 8:02 AM EST [facility] Comment: THIS ORGANISM IS POSITIVE FOR EXTENDED SPECTRUM BETA-LACTAMASE (ESBL). EXTENDED SPECTRUM BETA-LACTAMASE PRODUCING ORGANISMS DEMONSTRATE DECREASED ACTIVITY WITH PENICILLILNS, CEPHALOSPORINS AND AZTREONAM. Edited result: Previously reported as Escherichia coli on 10/06/2024 at 1131 EST. Urine Urine specimen obtained by clean catch procedure / Unknown 10/03/2024 5:26 PM EST 10/04/2024 12:35 PM EST Narrative [facility] - 10/07/2024 8:02 AM EST [...] MICROBIOLOGY - GENERAL O RDERABLES Final Result [facility] ([facility]) [facility] [address] [place] [address], documented in this encounter Visit Diagnoses Diagnosis Urinary tract infection, site not specified documented in this encounter Additional Health Concerns Infection Onset Date Last Indicated Resolved Time ESBL 10/03/2024 10/03/2024 documented as of this encounter Care Teams Bioinformatics Programmer Relationship Specialty Start Date End Date Yariel Walton MD [address] [place] [address] PCP - General Family Medicine 10/12/24 documented as of this encounter
--- OUTSIDE RECORDS SUMMARY | 2025-08-23 13:51 | XMS_ITS | Encounter Summary ---
Author Organization [employer] Address [address] [facility] [address] [place] [address] Care Team Providers Care Cigar Head Holer Name Role Phone Erika Morris MD Primary Care Provider + Reason for Visit * Reason Comments Med Refill Encounter Details Date Type Department Care Team (Late st Contact Info) Description 05/21/[address] [facility] MEDICINE [address] [place], [place] [phone] Mariia Harper DO [address] [place] [address] Neoplasm related pain (acute) (chronic) Social History [...] documented as of this encounter Care Teams Cigar Head Holer Relationship Specialty Start Date End Date Erika Morris MD [address] [place] [address] PCP - General Family Medicine 08/07/18 Care Team Connect 07/16/24 11/08/24 Héctor [facility] 10/19/24 documented as of this encounter
--- OUTSIDE RECORDS SUMMARY | 2025-08-23 13:51 | XMS_ITS | Encounter Summary ---
Author Organization [employer] Address [address] [facility] [address] [place] [address] Care Team Providers Care Track Laying Machine Operator Name Role Phone Erika Morris MD Primary Care Provider + Reason for Visit * Reason Onset Date Comments status 12/07/2022 Encounter Details Date Type Department Care Team ([facility] st Contact Info) Description 12/07/2022 Telephone [facility] MEDICINE [address] [place] [address] Erika Morris MD [address] [place] [address] status Social History Tobacco Use Types Packs/Day [...] on filedocumented in this encounter Care Teams Track Laying Machine Operator Relationship Specialty Start Date End Date Erika Morris MD [address] [place] [address] PCP - General Family Medicine 08/07/18 [employer] 07/16/24 11/08/24 Héctor [employer] 10/19/24 documented as of this encounter
--- OUTSIDE RECORDS SUMMARY | 2025-08-23 13:51 | XMS_ITS | Encounter Summary ---
Author Organization [employer] Address [address] [facility] 7t [place] [address] Care Team Providers Care Dairy Department Manager Name Role Phone Erika Morris MD Primary Care Provider + Encounter Details Date Type Department Care Team (Late st Contact Info) Description 07/16/2025 Results Follow-Up [facility] [address] [place] [address] Jaguar Meredith MD [address] [place] [address] XR Ribs 3 Views Right with Chest [...] documented as of this encounter Care Teams Dairy Department Manager Relationship Specialty Start Date End Date Erika Morris MD [address] [place] [address] PCP - General Family Medicine 08/07/18 [employer] 10/19/24 documented as of this encounter
--- OUTSIDE RECORDS SUMMARY | 2025-08-23 13:51 | XMS_ITS | Encounter Summary ---
Author Organization [employer] Address [address] [facility] 7t [place] [address] Care Team Providers Care Installer Interior Assemblies Name Role Phone Erika Morris MD Primary Care Provider + Reason for Visit * Reason Comments Med Refill Encounter Details Date Type Department Care Team (Late st Contact Info) Description 07/18/2023 Refill [facility] MEDICINE [address] [place], [place] [phone] Ariadne Panchal MD [address] [place] [address] Primary insomnia Social History Tobacco Use Types [...] documented as of this encounter Care Teams Installer Interior Assemblies Relationship Specialty Start Date End Date Erika Morris MD [address] [place] [address] PCP - General Family Medicine 08/07/18 [employer] 07/16/24 11/08/24 Héctor YUAN 10/19/24 documented as of this encounter
--- OUTSIDE RECORDS SUMMARY | 2025-08-23 13:51 | XMS_ITS | Clinical Summary ---
Author Organization [facility] Address [address] [place] [address] DR KULKARNI TAMANNA BIGGS [address] Phone Care Team Providers Care Mortgage Originator Name Role Phone Erika Morris MD Primary Care Provider [phone] Allergies No known active allergies Medications aspirin [...] Visit [facility] [address] [place] [address] Nawaf Guidry MD [address] [facility] [address] [place] [address] Health Maintenance Due Date Last [...] [place] Medicaid [place] Care Teams Mortgage Originator Relationship Specialty Start Date End Date Erika Morris MD [address] [place] [address] PCP - General Internal Medicine 11/08/21
--- OUTSIDE RECORDS SUMMARY | 2025-08-23 13:51 | XMS_ITS | Encounter Summary ---
Author Organization [employer] Address [address] [facility] 7t [place] [address] Care Team Providers Care Chrome Tanner Name Role Phone Erika Morris MD Primary Care Provider + Encounter Details Date Type Department Care Team (Late st Contact Info) Description 07/15/2025 Results Follow-Up [facility] MEDICINE [address] [place] [address] Erika Morris MD [address] [place] [address] CT Sinus Facial Bones w/o Contrast Social [...] Miscellaneous Notes * Result Encounter Note - Eriak Morris MD - 07/15/2025 5:08 PM EDT [...] documented as of this encounter Care Teams Chrome Tanner Relationship Specialty Start Date End Date Erika Morris MD [address] [place] [address] PCP - General Family Medicine 08/07/18 H[employer]ctor [employer] 10/19/24 documented as of this encounter
--- OUTSIDE RECORDS SUMMARY | 2025-08-23 13:51 | XMS_ITS | Encounter Summary ---
Author Organization [employer] Address [address] [facility] 7t [place] [address] Care Team Providers Care Home Office Claims Examiner Name Role Phone Erika Morris MD Primary Care Provider + Reason for Visit * Reason Onset Date Comments contact oncologist 01/30/2023 Encounter Details Date Type Department Care Team ([facility] st Contact Info) Description 01/30/2023 Telephone [facility] ADULT DENTAL [address] [place], [place] [phone] Nawaf Cueto, DMD [address] [place] [address] contact oncologist Social History Tobacco Use Types [...] number to reach Dr. Sahni Oncology at [facility] is [phone]. * Telephone Encounter - Elina Mills - [...] on filedocumented in this encounter Care Teams Home Office Claims Examiner Relationship Specialty Start Date End Date Erika Morris MD [address] [place] [address] PCP - General Family Medicine 08/07/18 [employer] 07/16/24 11/08/24 H[facility]ctor [facility] 10/19/24 documented as of this encounter
--- OUTSIDE RECORDS SUMMARY | 2025-08-23 13:51 | XMS_ITS | Encounter Summary ---
Author Organization [employer] Address [address] [facility] 7t [place] [address] Care Team Providers Care Post Manager Name Role Phone Erika Morris MD Primary Care Provider + Reason for Visit * Reason Onset Date Comments medication 07/12/2023 Encounter Details Date Type Department Care Team (Late st Contact Info) Description 07/12/[address] [facility] ADULT DENTAL [address] [place] [address] July Acuña, DDS [address] [place] [address] medication Social History Tobacco Use Types Packs/Day [...] antibiotics. She has her consultation visit in [place] in August and has run out of [...] and so following up. Grand daughter number [phone] * Telephone Encounter - Elina Mills - 07/12/2023 3:19 PM EDT Patient was referred to Hospital in [place] for treatment. She has an appt in [...] documented as of this encounter Care Teams Post Manager Relationship Specialty Start Date End Date Erika Morris MD [address] [place] [address] PCP - General Family Medicine 08/07/18 [facility] 07/16/24 11/08/24 [facility] 10/19/24 documented as of this encounter
--- OUTSIDE RECORDS SUMMARY | 2025-08-23 13:51 | XMS_ITS | Encounter Summary ---
Author Organization [employer] Address [address] [facility] 7[address] [place] [address] Care Team Providers Care Food Order Delivery Runner Name Role Phone Erika Morris MD Primary Care Provider + Reason for Visit * Reason Onset Date Comments Prior Authoroization for consultation 08/30/2023 Encounter Details Date Type Department Care Team ([facility] st Contact Info) Description 08/30/2023 Telephone C ADULT DENTAL [address] [place] [address] July Acuña, DDS [address] [place] [address] Prior Authoroization for consultation Social History Tobacco [...] to message below. Please contact Whitney at [phone] * Telephone Encounter - July Acuña DDS - 08/30/2023 11:19 AM EDT Spoke with pt granddaughter who is in charge of Altagracia, and she explained to me that she received a call from [facility] and they need to speak to the Medical department, not Dental. Advised her to please callthem back for specific instructions and then contact the PCP. * Telephone Encounter - Elina Mills - 08/30/2023 8:51 AM EDT Altagracia Kelley daughter called. She has her consultation in [facility] in [place] . The hospital contacted office in [place], unsure why, asking for a Prior Authorization for her visit over there. Basically they are looking for an ICD10 K08.9 as the reasoning and need for appt. I tried to get as much details as possible from daughter but this is all that she was able to give me. She provided me with 2 phones numbers to reach out for clarification: [phone] and [phone] She also provided a procedure code 74110 unsure if that is for the appt on the day she is going to [facility]. She is not sure what any of [...] documented as of this encounter Care Teams Food Order Delivery Runner Relationship Specialty Start Date End Date Erika Morris MD [address] [place] [address] PCP - General Family Medicine 08/07/18 [employer] 07/16/24 11/08/24 H[facility]ctor [facility] 10/19/24 documented as of this encounter
--- OUTSIDE RECORDS SUMMARY | 2025-08-23 13:51 | XMS_ITS | Encounter Summary ---
Author Organization [employer] Address [address] [facility] 7t [place] [address] Care Team Providers Care Ribbon Blocker Name Role Phone Erika Morris MD Primary Care Provider + Reason for Visit * Reason Onset Date Comments Hospital Follow-up 11/30/2024 Encounter Details Date Type Department Care Team ([facility] st Contact Info) Description 11/30/2024 Telephone [facility] MEDICINE [address] [place] [address] Erika Morris MD [address] [place], [place] [phone] Hospital Follow-up Social History Tobacco Use Types [...] PM EST Tc from Danna requesting a [employer] appt. Hospital: [facility] Date of admission: 11/23/24 Discharge date: 11/27/24 Diagnosed: Calcium and magnesium *Send message to [place] Clinical Care Coordinators documented in this encounter Plan of Treatment Not on file documented as of this encounter Visit Diagnoses Not on filedocumented in this encounter Additional Health Concerns Assessment Noted Time PHQ-9 Depression Total Score: 14 023 10:41 AM EDT documented as of this encounter Care Teams Ribbon Blocker Relationship Specialty Start Date End Date Erika Morris MD [address] [place] [address] PCP - General Family Medicine 08/07/18 [facility] 10/19/24 documented as of this encounter
--- OUTSIDE RECORDS SUMMARY | 2025-08-23 13:51 | XMS_ITS | Encounter Summary ---
Author Organization [employer] Address [address] [place] [address] Care Team Providers Care Stone Grader Name Role Phone Yariel Walton MD Primary Care Provider Encounter Details Date Type Department Care Team (Late st Contact Info) Description 07/27/2025 Lab Requisition [facility] - Main Lab [address] [facility] [place] [address] Yariel Walton MD [address] [place] [address] Multiple myeloma not having achieved [...] Associated Diagnosis Comments COMPLETE BLOOD COUNT Routine 07/28/2025 5:00 AM EDT Multiple myeloma not having achieved remission (CMS/HCC V24, CMS/HCC V28) MAGNESIUM Routine 07/28/2025 5:00 AM EDT Multiple myeloma not having achieved remission (CMS/HCC V24, CMS/HCC V28) COMPREHENSIVE METABOLIC PANEL Routine 07/28/2025 5:00 AM EDT Multiple myeloma not having achieved remission (CMS/HCC V24, CMS/HCC V28) documented in this encounter Results * (ABNORMAL) Comprehensive metabolic panel (07/28/2025 5:00 AM EDT) Sodium 139 133 - 145 mmol/L LAB CHEMISTRY METHOD 07/28/2025 8:11 AM [facility] Potassium 5.2 3.5 - 5.5 mmol/L LAB CHEMISTRY METHOD 07/28/2025 8:11 AM [facility] Chloride 107 96 - 110 mmol/L LAB CHEMISTRY METHOD 07/28/2025 8:11 AM [facility] CO2 25 21 - 32 mmol/L LAB CHEMISTRY METHOD 07/28/2025 8:11 AM [facility] Anion Gap 7 3 - 11 LAB CHEMISTRY METHOD 07/28/2025 8:11 AM [facility] Glucose 86 70 - 100 mg/dL LAB CHEMISTRY METHOD 07/28/2025 8:11 AM [facility] BUN 58(H) 5 - 25 mg/dL LAB CHEMISTRY METHOD 07/28/2025 8:11 AM [facility] Creatinine 1.41(H) 0.50 - 1.10 mg/dL LAB CHEMISTRY METHOD 07/28/2025 8:11 AM [facility] eGFR 38(L) >=60 mL/min/1. 73m2 LAB CHEMISTRY METHOD 07/28/2025 8:11 AM [facility] Comment:Calculation based on the Chronic Kidney Disease Epidemiology Collaboration (CKD-EPI) equation refit without adjustment for race. BUN/Creatinine Ratio 41.1 LAB CHEMISTRY METHOD 07/28/2025 8:11 AM [facility] Calcium 9.5 8.5 - 10.5 mg/dL LAB CHEMISTRY METHOD 07/28/2025 8:11 AM [facility] AST (SGOT) 33 10 - 42 unit/L LAB CHEMISTRY METHOD 07/28/2025 8:11 AM [facility] ALT (SGPT) 48 10 - 60 unit/L LAB CHEMISTRY METHOD 07/28/2025 8:11 AM [facility] Alkaline Phosphatase 213(H) 42 - 121 unit/L LAB CHEMISTRY METHOD 07/28/2025 8:11 AM [facility] Total Protein 7.7 6.0 - 8.0 g/dL LAB CHEMISTRY METHOD 07/28/2025 8:11 AM [facility] Albumin 3.6 3.2 - 5.0 g/dL LAB CHEMISTRY METHOD 07/28/2025 8:11 AM [facility] Total Bilirubin 0.5 0.0 - 1.4 mg/dL LAB CHEMISTRY METHOD 07/28/2025 8:11 AM [facility] Blood Venous blood specimen / Unknown Venipuncture / Unknown 07/28/2025 5:00 AM EDT 07/28/2025 7:08 AM EDT Yariel Walton MD LAB BLOOD ORDERABLES Final R esult [facility] [address] [place] [address], * (ABNORMAL) Complete blood count (07/28/2025 5:00 AM EDT) WBC 8.4 4.8 - 10.8 K/mcL LAB HEMETOLOGY METHOD 07/28/2025 7:26 AM [facility] RBC 4.10 3.80 - 4.80 M/[facility] LAB HEMETOLOGY METHOD 07/28/2025 7:26 AM [facility] Hemoglobin 11.1(L) 11.5 - 16.0 g/dL LAB HEMETOLOGY METHOD 07/28/2025 7:26 AM [facility] Hematocrit 36.2 35.0 - 47.0 % LAB HEMETOLOGY METHOD 07/28/2025 7:26 AM EDT [facility] MCV 89.4 79.0 - 98.0 FL LAB HEMETOLOGY METHOD 07/28/2025 7:26 AM EDT [facility] MCH 27.4 27.0 - 32.0 pcg LAB HEMETOLOGY METHOD 07/28/2025 7:26 AM EDT [facility] MCHC 30.7(L) 32.0 - 37.0 g/dL LAB HEMETOLOGY METHOD 07/28/2025 7:26 AM EDT [facility] RDW 15.3(H) 11.0 - 15.0 % LAB HEMETOLOGY METHOD 07/28/2025 7:26 AM EDT [facility] Platelets 322 130 - 400 K/mcL LAB HEMETOLOGY METHOD 07/28/2025 7:26 AM EDT [facility] MPV 11.5(H) 7.0 - 11.0 FL LAB HEMETOLOGY METHOD 07/28/2025 7:26 AM EDT [facility] NRBC 0.0 <1.0 % LAB HEMETOLOGY METHOD 07/28/2025 7:26 AM EDT [facility] NRBC Absolute 0.00 <0.10 K/mcL LAB HEMETOLOGY METHOD 07/28/2025 7:26 AM EDT [facility] Blood Venous blood specimen / Unknown Venipuncture / Unknown 07/28/2025 5:00 AM EDT 07/28/2025 7:08 AM EDT us Yariel Walton MD LAB BLOOD ORDERABLES Final R esult [facility] [address] [place] [address], * Magnesium (07/28/2025 5:00 AM EDT) Magnesium 2.5 1.9 - 2.6 mg/dL LAB CHEMISTRY METHOD 07/28/2025 8:04 AM EDT [facility] Blood Venous blood specimen / Unknown Venipuncture / Unknown 07/28/2025 5:00 AM EDT 07/28/2025 7:08 AM EDT us Yariel Walton MD LAB BLOOD ORDERABLES Final R esult [facility] [address] [place] [address], documented in this encounter Visit Diagnoses Diagnosis Multiple myeloma not having achieved remission (CMS/HCC V24, CMS/HCC V28) documented in this encounter Additional Health Concerns Infection Onset Date Last Indicated Resolved Time ESBL 10/03/2024 10/03/2024 documented as of this encounter Care Teams Stone Grader Relationship Specialty Start Date End Date Yariel Walton MD [address] [place] [address] PCP - General Family Medicine 10/12/24 documented as of this encounter
--- OUTSIDE RECORDS SUMMARY | 2025-08-23 13:51 | XMS_ITS | Encounter Summary ---
Author Organization [employer] Address [address] [facility] [address] [place] [address] Care Team Providers Care Classified Ad Taker Name Role Phone Erika Morris MD Primary Care Provider + Reason for Visit * Reason Comments Med Refill Encounter Details Date Type Department Care Team (Late st Contact Info) Description 05/27/2023 Refill [facility] MEDICINE [address] [place], [place] [phone] Mariia Harper DO [address] [place] [address] Neoplasm related pain (acute) (chronic) Social History [...] documented as of this encounter Care Teams Classified Ad Taker Relationship Specialty Start Date End Date Erika Morris MD [address] [place] [address] PCP - General Family Medicine 08/07/18 [employer] 07/16/24 11/08/24 Héctor [facility] 10/19/24 documented as of this encounter
--- OUTSIDE RECORDS SUMMARY | 2025-08-23 13:51 | XMS_ITS | Encounter Summary ---
Author Organization [facility] Address [address] [place] [address] Care Team Providers Care Jewish Thought Professor Name Role Phone Yariel Walton MD Primary Care Provider Encounter Details Date Type Department Care Team (Late st Contact Info) Description 10/19/2024 Lab Requisition [facility] - Main Lab [address] [facility] [place] [address] Yariel Walton MD [address] [place] [address] Chronic kidney disease, unspecified; Essential (primary) hypertension [...] documented as of this encounter Care Teams Jewish Thought Professor Relationship Specialty Start Date End Date Yariel Walton MD [address] [place] [address] PCP - General Family Medicine 10/12/24 documented as of this encounter
== END 2025-08-23 12:44 | disposition home or self-care (01) ==
LOC: HO.HOSX 12:43
DX: S42.292A Other displaced fracture of upper end of left humerus, initial encounter for closed fracture (principal); S62.337A Displaced fracture of neck of fifth metacarpal bone, left hand, initial encounter for closed fracture; W13.0XXA Fall from, out of or through balcony, initial encounter
CPT/HCPCS: 73030; 73130; 99202

== ENCOUNTER 2025-08-23 13:50 | Outpatient (AMB) | payer MEDICARE, MEDICAID, SELFPAY ==
--- NOTE | 2025-08-23 14:02 | A.OFFVIS_ITS ---
Vital Signs 08/23/25 14:03 Height 5 ft 3 in Weight 145 lb BMI 25.7 Intake Visit Reasons: FC/ED: left hand 5th digit fx DOI: 07/11/25 Intake Note: Altagracia is an 79 year old right hand dominant female, new patient, who presents today for an [facility] ED follow up status post Left Small Finger Fracture, DOI: 07/11/25 & Left Shoulder Injury DOI: 07/17/25. Patient reported at the ED she had fell at home while trying to go outside into her porch with her walker. Patient presented to the ED again on 07/17/25 due to another fall. Patient complains of pain primarily on the anterior aspect of the left shoulder radiating down to the hand. Patient is taking Tylenol PRN and using a sling. Per rehab, patient has been non-weight bearing. They would like to know if patient can use her walker. Patient is currently residing at [facility]. Aging Room Hand Required: Yes Aging Room Hand Language: Zmt Operator Name: NIGHAT Palacios/JENA Accompanied by: Produce Department Supervisor Allergies No Known Allergies (No Known Allergies*) Allergy (Verified 08/23/25 14:04) HPI HPI FC/ED: left hand 5th digit fx DOI: 07/11/25: Details: Altagracia is an 79 year old right hand dominant female, new patient, who presents today for an [facility] ED follow up status post Left Small Finger Fracture, DOI: 07/11/25 & Left Shoulder Injury DOI: 07/17/25. Patient reported at the ED she had fell at home while trying to go outside into her porch with her walker. Patient presented to the ED again on 07/17/25 due to another fall. Patient complains of pain primarily on the anterior aspect of the left shoulder radiating down to the hand. Patient is taking Tylenol PRN and using a sling. Per rehab, patient has been non-weight bearing. They would like to know if patient can use her walker. Patient is currently residing at [facility]. Patient reports that her pain has improved significantly since initial injury of both the shoulder and the hand. [facility] Medical History Multiple myeloma Chronic diarrhea Tubulovillous adenoma Depression H/O gastroesophageal reflux (GERD) Hx of multiple myeloma Hypothyroidism Surgical History H/O tooth extraction History of bone marrow biopsy History of cholecystectomy Family History Daughter Diabetes Thyroid cancer Social History Household Members: Family Household Members Other:: adult son Housing: Apartment Are you a primary youth care specialist to a significant other at home: No Do you presently have visiting nurse or other home services: Yes Alcohol intake: never Comment: 1:[address] until 23:00 due to staffing constraints Patient Tobacco Use Status: Former Tobacco user Tobacco use type: Cigarette Years Smoked: 20 e-Cigarette/Vaping Use: Never Used Second Hand Smoke Exposure: No Substance Use Type: Marijuana Advance Directives Date on File: 07/12/25 service: No Current occupational status: unemployed Review of Systems Const All systems reviewed & are unremarkable except as noted in HPI and below Physical Exam Vital Signs: BMI result Body Mass Index 25.7 Extrem Other: Left hand exam: Patient is alert, oriented, and in no acute distress. Neuro: Normal sensation of the tips of all digits of the left hand at this time Vascular: Cap refill brisk Pain: Minimal Tenderness to palpation about the left 5th metacarpal head No tenderness to palpation of any other digits of the left hand ROM: Patient is able to make a closed fist and extend all digits of the left hand ful ly Skin: No lacerations or abrasions. General: No ecchymosis, erythema, or evidence of infection. Psych: Appears grossly normal Affect normal Attitude cooperative Left shoulder exam: On inspection, there is a visible and palpable deformity of the left shoulder with the humeral head translated anteriorly compared to the humeral shaft No edema, erythema, ecchymosis noted No lacerations, abrasions, open areas No evidence of infection Patient reports tenderness palpation Patient is able to flex and extend the left elbow in the digits of the left hand without difficulty Distal sensation intact Capillary refill brisk Office Procedures AMB Fracture Care Fracture Billing Code: Fracture Billing Code Results Reviewed Results Reviewed: X-rays obtained in the office today and independently reviewed by me, Cas zhu PA-C, demonstrate minimally displaced healing fracture of the left 5th metacarpal neck along with severely displaced humeral neck fracture of the left shoulder with 100% translocation of the humeral head. Assessment & Plan Assessment & Plan (1) Closed fracture of left proximal humerus: Code(s): S42.A - Unspecified fracture of upper end of left humerus, initial encounter for closed fracture Category: Medical Qualifiers: Encounter type: initial encounter Fracture alignment: displaced Fracture morphology: other fracture Qualified Code(s): S42.292A - Other displaced fracture of upper end of left humerus, initial encounter for closed fracture (2) Displaced fracture of neck of left fifth metacarpal bone: Code(s): S62.337A - Displaced fracture of neck of fifth metacarpal bone, left hand, initial encounter for closed fracture Category: Medical Plan 1. Closed fracture of the left proximal humerus 2. Closed fracture of left 5th metacarpal Date of injury 07/17/2025 for the shoulder, 07/11/2025 with a hand Patient is educated about this injury Patient is educated about the typical treatment course No active range of motion of the left shoulder away from the body Patient is advised that she should come out of the sling while at rest to work on range of motion of the left elbow, wrist, hand Patient should be going to OT as well to work on motion of these areas Nonweightbearing on left upper extremity No walker use, patient may use a miriam walker if necessary Patient is advised that due to the alignment of her fracture, she will likely lose some function of the left shoulder even when the fracture heals, however there is no indication for surgical intervention given the patient's age, comorbidities, and the risks associated with surgical intervention for this fracture Patient and the worker from the facility where she is living state understanding of this and are amenable to this plan Follow-up in 4-6 weeks for reassessment, sooner with any acute concerns Orders: Orders XR shoulder LT min 2V 08/23/25 M25.512 - Pain in left shoulder XR hand LT min 3V 08/23/25 M79.642 - Pain in left hand Coding Level of Care Code New Pt Level 3 (74320) Diagnoses Closed fracture of left proximal humerus S42.292A Encounter type: initial encounter Fracture alignment: displaced Fracture morphology: other fracture Displaced fracture of neck of left fifth metacarpal bone S62.337A CPT Codes Fracture Care - Fracture Billing Code: Fracture Billing Code ([id number])
[2025-08-23 14:03] VITALS: BMI 25.7
== END 2025-08-23 14:53 | disposition home or self-care (01) ==
LOC: HO.HOS 13:50
DX: S42.292A Other displaced fracture of upper end of left humerus, initial encounter for closed fracture (principal); S62.337A Displaced fracture of neck of fifth metacarpal bone, left hand, initial encounter for closed fracture
CPT/HCPCS: 99203

== ENCOUNTER → 2025-08-23 13:59 | Outpatient (BNV) | payer MEDICARE, MEDICAID, SELFPAY | PROVIDERS: Visit Provider Radiology Diagnostic Radiology | DX: M25.512 Pain in left shoulder (principal) | CPT/HCPCS: 73030; 73130 ==

== ENCOUNTER 2025-10-04 08:08 | Outpatient (REF) | payer MEDICARE, MEDICAID, SELFPAY | END 2025-10-04 08:09 | disposition home or self-care (01) | LOC: HO.HOSX 08:08 | DX: Z13.89 Encounter for screening for other disorder (principal) ==